=== PATIENT | female | born 1960 | race Caucasian/White ===

== ENCOUNTER 2017-06-15 05:53 | Inpatient (IN) | payer OTHER, SELFPAY ==
--- NOTE | 2017-06-03 22:48 | HP.PCM_ITS ---
History and Physical DATE OF SERVICE: 06/15/2017 SCHEDULED PROCEDURE: Right total knee arthroplasty HISTORY OF PRESENT ILLNESS: This is a 56-year-old female who is been having ongoing pain in the right. She states over the past 1 year it is progressively become worse. Patient has intermittent sharp and stabbing pain in the knee. Patient states going up and down stairs, walking any amount of distance, sitting for extended periods of time, and driving all increase her pain. Patient states she has tripped and stumbled on occasion due to the right knee pain. Patient states activities of daily living are getting more difficult to accomplish such as bathing as well as leisure activities. Patient has tried a brace in the past with no significant relief. Patient has tried conservative measures consisting of rest , ice, heat, elevation, and compression. Patient has received a series of Euflexxa injections with no relief. Patient has tried oral medications consisting of nldc-iqo-evyhwrp ibuprofen, Aleve. Patient has had a previous right knee arthroscopy in the past in 1989. Pain can reach as high as an 8 out of 10. She does complain of swelling as well as crepitus in the right knee. After failing conservative measures and discussing all treatment plans with Dr. Martín Pabon the patient would like to proceed with a right total knee arthroplasty. Patient currently denies any chest pain, shortness of breath, fevers chills, or recent infections. Patient has obtained surgical clearance from primary care physician Dr. Graves. REVIEW OF SYSTEMS: ROS: Const: Reports anxiety, but denies anorexia, change in appetite, fever and weight change,hard of hearing, and vision problems. Eyes: Reports vision loss. ENMT: Reports hearing difficulty. CV: Denies chest pain, heart murmur, irregular heartbeat and peripheral vascular disease. Resp: Denies asthma, cough, pneumonia, sleep apnea, SOB, tuberculosis and wheezing. GI: Reports heartburn, but denies constipation, diarrhea, nausea, bloody stools and vomiting, and difficulty swallowing. : Genital:. (F Genital Sx) Urinary: denies incontinence. Musculo: Reports weakness, but denies leg swelling and trouble walking and limp. Skin: Denies Raynaud's, history of shingles and tattoo. Neuro: Reports difficulty with balance, dizziness and numbness/tingling but denies ambulatory dysfunction and tremor. Psych: Reports anxiety ( driving) , depression, insomnia and stress, but denies mental illness Sadi/Lymph: Denies anemia, bleeding/bruising tendency and past transfusion. Reviewed and updated. PAST MEDICAL HISTORY: Advance Care Plan: No Advance Directives Effective Date: 11/05/2016 PMH: Medical Problems: High Blood Pressure, Ulcers, Arthritis, Colitis, Fibromyalgia, Crohn's Disease, Diabetes Accidents: Sports Related Injury - Lft Knee Surgical Hx: Gallbladder - (1991) Hysterectomy - (1994) Arthroscopy - (1979) LEFT KNEE, DR. LAWRENCE Arthroscopy - (1989) RIGHT KNEE Tonsillectomy - (1971) Carpal Tunnel - R CTR 10/13/07 [facility] - (2008) [facility] @ [facility] Anesthesia Complications: Anesthesia Complications - 1971/ get sick easy Assistive Devices: Glasses, Dentures Reviewed and updated. SOCIAL HISTORY: SH: Marital: .Occupation: [employer].Work Status: Currently Working.Hand Dominance: Ambidextrous. Personal Habits: Smoking: Patient is a former smoker.Cigarette Use: Former - 1 pck a day for 30 yrs .Alcohol: Occasionally.Drug Use: Denies Use.Enjoy Exercising: Exercises 1-3 x/month. Reviewed, no changes. VITALS: Ht: 64.5 Wt: 190lb Wt k.184 BMI: 32.1 BP: 120/80 Pulse: 78 Resp: 16 T: 98.9 T: 37.2C ALLERGIES: Doxycycline Sulfa MEDICATIONS: Lisinopril 10 mg 1 tab PO daily, Metformin HCL 500 mg 1po bid, Glipizide 5 mg 1po qday, Omeprazole 40 mg 1 by mouth every day, Folic Acid 1 mg 2 tabs PO daily , Amitriptyline HCL 25 mg 1 tab PO daily, Vitamin B-12 2500 mcg one PO daily, Magnesium 250 mg one PO daily, Vitamin D3 Adult Gummies 1000 Unit, Humira 40 mg/ 0.8ml PRE-OP EXAM: General appearance:NORMAL Other: Eyes: Conjunctivae and lids: NORMAL Pupils: ERR Ears, Nose, Mouth, and Throat: NORMAL Other: Inspection of lips, teeth and gums: NORMAL Other: Neck: Examination of neck: no masses noted. Respiratory: Assessment of respiratory effort: NORMAL Other: Ausculation of lungs: clear to ausculation no wheeses, ronchi or rales. Cardiovascular: Ausculation of heart: regular rate and rhythem, no mummurs, gallops or rubs. Exam of carotid arteries: NORMAL Other: Gastrointestinal: Exam of abdomen: soft, nontender, nondistended bowel sounds present. Lymphatic: Palpation of nodes in neck: NORMAL Other: Palpation of nodes in Axillae: NORMAL Other: Neurological: see below Psychiatric: Orientation to time, place and person: NORMAL Other: Mood and affect: NORMAL Other: PHYSICAL EXAMINATION: Patient walks with an antalgic gait. Patient does have a valgus deformity of 12 ? of the right knee. She has tenderness to palpation over the medial lateral joint line. Right knee is cool to touch without erythema. Sensations intact light touch. Neurovascularly intact. Increased pain and crepitus with range of motion of the right knee. IMAGING STUDIES: 1. X-rays were obtained at [facility] [place] of the right knee which shows [id number]-fv-hrns contact laterally with bone spurring over the medial and lateral aspect of the knee. There are some cystic changes. Patient has sclerosis of the distal femur and upper tibia. Patellofemoral joint arthritis with loss of joint space and bones spurring. IMPRESSION: 1. Severe right knee osteoarthritis 2. Hypertension 3. Type 2 diabetes mellitus 4. Crohn's disease 5. Fibromyalgia 6. History of ulcers 7. Overweight PLAN: Dr. Pabon did discuss and review with the patient all treatment options including surgical versus nonsurgical. Patient wishes to proceed with above- stated procedure. Potential risks, benefits, and complications of this procedure were discussed in detail including but not limited to , infection , nerve and blood vessel damage, persistent pain, numbness, tingling, paresthesias, blood clot, pulmonary embolism, and requirement for further surgery. The patient expressed full understanding has no further questions for the doctor. Patient does agree to proceed with the above-stated procedure and has signed the surgery consent form. ___ I have re-examined the patient. There are no clinical changes since date of exam. ___ See progress notes for changes. ___ Dictated on admission Date: Time: Signature:
[2017-06-04 15:41] VITALS: BP 155/79; PULSE 94; RESP 18; TEMP 36.7; O2SAT 96; BMI 34.0
[2017-06-04 17:20] LABS: Hematocrit 39.5 % (37-47); Hemoglobin 12.4 g/dl (12.0-15.0); Mean Corp Hgb Conc 31.4 g/gl (32-36); Mean Corpuscular Hgb 25.6 pg (27.0-32.0); Mean Corpuscular Volume 81.4 fL (81-99); Mean Platelet Vol. 9.9 fl (6.2-12.0); Platelet Count 230 K/mm3 (150-450); RBC Distribution Width CV 15.1 % (11.6-14.6); RBC Distribution Width SD 45.1 fl (35.1-43.9); Red Blood Count 4.85 M/mm3 (4.2-5.4); White Blood Count 8.3 K/mm3 (4.4-11.0)
[2017-06-04 17:21] LABS: Scan Indicated on CBC? Y/N NO
[2017-06-04 17:29] LABS: International Normalized Ratio 0.9; Partial Thromboplast Time 32.5 Seconds (24.1-36.2); Prothrombin Time (Protime)PT. 12.3 SECONDS (11.7-14.9)
[2017-06-04 17:44] LABS: AST(SGOT) 19 U/L (15-37); Alanine Aminotransfer ALT/SGPT 27 U/L (13-56); Albumin, Serum 3.8 g/dL (3.2-5.0); Alkaline Phosphatase 88 U/L (45-117); Anion Gap 9 (5-15); BUN 17 mg/dL (7-18); BUN/Creat Ratio 18.9 RATIO (10-20); Bilirubin, Direct 0.11 mg/dL (0.00-0.30); Chloride 104 mmol/L (98-107); EST Glomerular Filtration Rate 68 mL/min (>60); Est Glom Filt Rate - Afr Amer 83 mL/min (>60); Estimated Creatinine Clearance 57.05 ml/min; Globulin 4.2 g/dL (2.2-4.2); Glucose 73 mg/dL (74-106); Potassium 3.7 mmol/L (3.5-5.1); Sodium Level 138 mmol/L (136-145)
[2017-06-04 17:58] LABS: Hemoglobin A1c 6.5 % (4.2-6.3)
--- NOTE | 2017-06-11 15:02 | CASEMGMT ---
RN CM called patient to discuss discharge needs after upcoming surgery. No answer and voice message left with return contact information. Chart review and pre admission assessment states patient has a walker and cane, lives with family, and plans to return home. RN CM will follow-up with patient after surgery and assist with discharge needs.
[2017-06-15] VITALS (10 sets, daily range): BP systolic 89–131; BP diastolic 40–81; PULSE 79–92; RESP 16–18; TEMP 36.6–37.1; O2SAT 96–100; BMI 34.0
[2017-06-15] MEDS: Celecoxib 200 MG Capsule 400 MG PO (06:43)
[2017-06-15] MEDS: oxyCODONE HCl Cr 10 MG Tablet PO (06:43)
[2017-06-15] MEDS: Acetaminophen 500 MG Tablet 1000 MG PO ×3 (06:43→21:43)
[2017-06-15 07:00] LABS: Bedside Glucose 135 mg/dL (70-110)
--- NOTE | 2017-06-15 07:07 | RAD_ITS ---
STUDY: X-RAY - RIGHT KNEE REASON FOR EXAM: Female, 56 years old. Total knee replacement. TECHNIQUE: AP and lateral view(s) of the knee. COMPARISON: None. FINDINGS: Normal visualized distal femur. Normal visualized proximal tibia and fibula. Normal proximal tibiofibular articulation. The patient is status post right total knee replacement. There is good alignment. Postoperative soft tissue changes. RAD/Knee 1 or 2 Views IMPRESSION: Status post right total knee replacement. There is good alignment. Postoperative soft tissue changes. Electronically Signed: Calvin Flores MD at 11:20 EDT Tel [phone], Service support ,
--- NOTE | 2017-06-15 07:15 | KNEE_PTH ---
PATIENT: SHANE RODRIGUEZ LOC: MS3 U#:[id number] AGE/SX: 56/F ROOM: MS312 RE06/15/[address]: Dr. Evan Salguero MD : 1960 BED: 1 DIS: 06/16/2017 SPEC #: [id number] RECD: 06/15/17 11:32 STATUS: KAYCEE JUSTA #: [id number] JAMI: 06/15/17 07:[address]: Martín Pabon DEPT: SURGICAL PATHOLOGY RECD BY: Jason Harrell ENTERED: 06/15/17 12:50 SP TYPE: TOTAL KNEE OTHR DR: Dr. Zach Null MD Tissues: Knee, NOS Procedures: Decalcification bone/plaque Surgery Specimen Level IV HEADER OPERATION: Right total knee replacement PRE-OP DIAGNOSIS: Severe right knee osteoarthritis TISSUE SUBMITTED: Bone and soft tissue, right knee MICROSCOPIC DIAGNOSIS Bone and tissue, right knee, total knee replacement: Pieces of bone with degenerative osteoarthritic changes. SJ:samia 06/18/17 MICROSCOPIC DESCRIPTION Slides are reviewed. GROSS DESCRIPTION Received is one container designated bone and tissue right knee. The specimen consists of multiple fragments of fall-yellow bone measuring in aggregate 12 x 12 x 3 cm. No soft tissue is identified. A number of bony fragments contain articular surfaces consistent with tibial plateau and femoral condyle and displaying prominent osteophyte formation and bone erosion. Electronic Systems Technician sections are submitted in one cassette after decalcification. / SETH:samia 06/15/17 TC:5 [facility]: [id number]
[2017-06-15] MEDS: Cefazolin 2 GM in 0.9% Normal Saline 100 ML IV (07:29)
--- NOTE | 2017-06-15 09:21 | PCM.OP.BLANK ---
Operative Report Date of Procedure: 06/15/17 Preoperative diagnosis: [Right] knee severe primary osteoarthritis Postoperative diagnosis: Same Title of procedure : [Right] total knee replacement Surgeon: Martín Pabon MD Research Assistant: Sydney Holt PA-C Anesthesia: Spinal, adductor canal nerve block planned for recovery room Anesthesiologist: Dr Granados Special medications: Vancomycin. Ancef, tranexamic acid Indications for surgery: Patient is a [56]-year-old [female] with a history of knee arthritis appropriately treated and failed conservative measures and wished to proceed with total knee replacement. Patient was cleared for surgery by the medical doctor and has been evaluated by the anesthesia staff Findings: Intraoperative findings showed severe arthritis of the knee. Patient underwent knee replacement using [employer] total knee components. Size [4] femur, size [4] tibia, [29 x 9] asymmetric X3 patella, size [4-9 CS] X3 tibial polyethylene insert, knee was nicely balanced. Patella tracked well. Patient underwent standard wound closure in layers. Vicryl and strata fix sutures utilized. title i instructional assistant, physician commercial assistant, was utilized throughout the entire procedure. They were vital in helping with patient positioning, holding of retractors, exposing the tissues adequately for safe completion of the procedure including cutting of the bone, helping conciliation court judge appropriate alignment and sizing of the components, implantation of the components, as well as wound closure, bandage application, and safe patient transfer. Without mailroom assistant, physician commercial assistant, surgical time would have been significantly increased, and surgical outcome could have been less optimal. Description of procedure: The patient was taken to the OR, transferred to the OR table. They were given a spinal anesthetic. Vancomycin, Ancef was given IV preoperatively. Tranexamic acid was given IV preoperatively. Well-padded tourniquet was applied to the upper thigh of the operative leg. Nonoperative leg had a FERNANDA hose and SCD on throughout. Operative limb was prepped padded and draped in usual orthopedic sterile fashion for the procedure. We began by injecting the pain relieving solution in the anterior superior aspect of the knee region. The limb was exsanguinated, and the tourniquet was applied to 300 mmHg. Made a midline incision through skin, subcutaneous tissue, bringing down us on the extensor mechanism. Medial parapatellar arthrotomy was carried out. Straw-colored joint fluid was evacuated. We raised a sleeve of tissue off the upper medial tibia. Resected some of the infrapatellar fat pad. We remove degenerative medial and lateral meniscus. Removed bone spurs from about the joint. We removed tissue off the anterior aspect of the distal femur. Patella was translated laterally and/or everted as needed throughout the procedure. ACL was resected. PCL was preserved. Collateral ligaments were preserved. Physician placed the retractors and commercial assistant held retractors protecting above ligaments throughout the procedure. Drill was placed up the distal femur. Flex guide mely was placed up the femoral canal. We resected 8 mm off of the distal femur. 6? valgus cut. Next cutting block was applied to the front of the femur. 3? of external rotation . We sized off that block and decided on the appropriate size femur. 4-in-1 cutting block was applied to the distal femur and held in place with 2 pins. Research Assistant again held retractors to protect the soft tissues while surgeon performed anterior, posterior, and chamfer cuts. Bony fragments were removed. PCL retractor was placed and collateral ligament protectors placed by the surgeon, held by the assistance. Tibial external alignment guide was utilized under standard technique going down the shaft of the tibia, to the base of the second metatarsal. Appropriate posterior slope was built in. Research Assistant help conciliation court judge alignment. We went 2 mm off the deficient side of the tibia. Cutting block was held in place with 3 pins. Again checked the external alignment. Tibial cut carried out with a saw while the commercial assistant held retractors protecting the soft tissues about the anterior, medial, lateral, and posterior knee. Bone fragment removed. We then sized off the upper tibia with the help of the commercial assistant. Recut tibia x 2 before adequate bone removed. We then checked flexion extension gaps finding them to be adequate and equal. Next the distal femoral trial was applied. Tibial tray was allowed to freefloat with a 9 mm insert. Knee was flexed and extended an external alignment guide is utilized. Tibial trial was pinned in place. Drill holes were placed into the distal femoral trial and it was removed. Punch was used on the upper tibial component and that was removed. The sclerotic bone was softened with a sharp pin. Bone spurs removed from the posterior medial and posterior lateral aspect of the femur while the commercial assistant lifted up on the distal femur and exposed each compartment. Patella was everted and measured and appropriate resection was carried out while the commercial assistant held the guide and patella in good position. Patellar remnant measured to be at or just greater than 14 mm. Patella was sized. Clamp was utilized. 3 drill holes were placed through the clamp held by the commercial assistant. Trial patella was placed and removed. Bleeding was controlled at the back of the knee with the bovey. Posterior knee soft tissues were carefully injected with pain relieving solution. Components were checked and open. Two full batches of bone cement were mixed. Knee was thoroughly irrigated by the commercial assistant while surgeon fashioned a bone plug that was placed in the femoral canal hole. The bony surfaces cleaned and dried. When the cement was of the appropriate texture the tibia, femur, and then patella was cemented in place. Research Assistant held retractors exposing the bony surfaces of the tibia and femur which were hammered in position. Patella clamped into position. The excess bone cement removed. A trial insert applied to the tibia. Knee was held in full extension while the cement hardened. While the cement was hardening pain relieving solution was injected throughout the knee. When cement was fully hardened tourniquet was deflated. We re-trialed with the help of the commercial assistant and then placed the appropriate sized polyethylene component. We thoroughly irrigated and debrided the knee. Bleeding controlled with the Bovie. Knee was again thoroughly irrigated. Patella noted to track nicely. We repaired the arthrotomy with a combination of #1 Vicryl and #2 strata fix. We did a mid layer of 1 Vicryl and #1 strata fix running. We then did inverted 2-0 vicryl . We then applied Steri-Strips over skin prep. Mepilex dressing applied. FERNANDA hose and SCDs applied. Patient was awoken from their anesthetic, transferred back to their own bed and recovery room in satisfactory condition. Second dose of IV Tranexamic acid was given while closing wound. Patient was admitted, appropriate IV antibiotic to be utilized as well as medication for DVT prevention,pain relief. Hopeful discharge in 1-2 days. Hospitalist and Physical therapy will be consulted. This note was generated with [employer] software. It may contain incorrect words, spelling, and punctuation that were not noted in checking the note before signing.
--- NOTE | 2017-06-15 09:26 | OP.PCM_ITS ---
Operative Report Date of Procedure: 06/15/17 Preoperative diagnosis: [Right] knee severe primary osteoarthritis Postoperative diagnosis: Same Title of procedure : [Right] total knee replacement Surgeon: Martín Pabon MD Mechanical Service Specialist: Sydney Holt PA-C Anesthesia: Spinal, adductor canal nerve block planned for recovery room Anesthesiologist: Dr Granados Special medications: Vancomycin. Ancef, tranexamic acid Indications for surgery: Patient is a [56]-year-old [female] with a history of knee arthritis appropriately treated and failed conservative measures and wished to proceed with total knee replacement. Patient was cleared for surgery by the medical doctor and has been evaluated by the anesthesia staff Findings: Intraoperative findings showed severe arthritis of the knee. Patient underwent knee replacement using Netsketn total knee components. Size [4] femur, size [4] tibia, [29 x 9] asymmetric X3 patella, size [4-9 CS] X3 tibial polyethylene insert, knee was nicely balanced. Patella tracked well. Patient underwent standard wound closure in layers. Vicryl and strata fix sutures utilized. minister assistant, physician microbiology lab assistant, was utilized throughout the entire procedure. They were vital in helping with patient positioning, holding of retractors, exposing the tissues adequately for safe completion of the procedure including cutting of the bone, helping wool grader appropriate alignment and sizing of the components, implantation of the components, as well as wound closure, bandage application, and safe patient transfer. Without certified surgical tech/first assistant, physician microbiology lab assistant, surgical time would have been significantly increased, and surgical outcome could have been less optimal. Description of procedure: The patient was taken to the OR, transferred to the OR table. They were given a spinal anesthetic. Vancomycin, Ancef was given IV preoperatively. Tranexamic acid was given IV preoperatively. Well-padded tourniquet was applied to the upper thigh of the operative leg. Nonoperative leg had a FERNANDA hose and SCD on throughout. Operative limb was prepped padded and draped in usual orthopedic sterile fashion for the procedure. We began by injecting the pain relieving solution in the anterior superior aspect of the knee region. The limb was exsanguinated, and the tourniquet was applied to 300 mmHg. Made a midline incision through skin, subcutaneous tissue, bringing down us on the extensor mechanism. Medial parapatellar arthrotomy was carried out. Straw- colored joint fluid was evacuated. We raised a sleeve of tissue off the upper medial tibia. Resected some of the infrapatellar fat pad. We remove degenerative medial and lateral meniscus. Removed bone spurs from about the joint. We removed tissue off the anterior aspect of the distal femur. Patella was translated laterally and/or everted as needed throughout the procedure. ACL was resected. PCL was preserved. Collateral ligaments were preserved. Physician placed the retractors and microbiology lab assistant held retractors protecting above ligaments throughout the procedure. Drill was placed up the distal femur. Flex guide mely was placed up the femoral canal. We resected 8 mm off of the distal femur. 6? valgus cut. Next cutting block was applied to the front of the femur. 3? of external rotation . We sized off that block and decided on the appropriate size femur. 4-in-1 cutting block was applied to the distal femur and held in place with 2 pins. Mechanical Service Specialist again held retractors to protect the soft tissues while surgeon performed anterior, posterior, and chamfer cuts. Bony fragments were removed. PCL retractor was placed and collateral ligament protectors placed by the surgeon, held by the assistance. Tibial external alignment guide was utilized under standard technique going down the shaft of the tibia, to the base of the second metatarsal. Appropriate posterior slope was built in. Mechanical Service Specialist help wool grader alignment. We went 2 mm off the deficient side of the tibia. Cutting block was held in place with 3 pins. Again checked the external alignment. Tibial cut carried out with a saw while the microbiology lab assistant held retractors protecting the soft tissues about the anterior, medial, lateral, and posterior knee. Bone fragment removed. We then sized off the upper tibia with the help of the microbiology lab assistant. Recut tibia x 2 before adequate bone removed. We then checked flexion extension gaps finding them to be adequate and equal. Next the distal femoral trial was applied. Tibial tray was allowed to freefloat with a 9 mm insert. Knee was flexed and extended an external alignment guide is utilized. Tibial trial was pinned in place. Drill holes were placed into the distal femoral trial and it was removed. Punch was used on the upper tibial component and that was removed. The sclerotic bone was softened with a sharp pin. Bone spurs removed from the posterior medial and posterior lateral aspect of the femur while the microbiology lab assistant lifted up on the distal femur and exposed each compartment. Patella was everted and measured and appropriate resection was carried out while the microbiology lab assistant held the guide and patella in good position. Patellar remnant measured to be at or just greater than 14 mm. Patella was sized. Clamp was utilized. 3 drill holes were placed through the clamp held by the microbiology lab assistant. Trial patella was placed and removed. Bleeding was controlled at the back of the knee with the bovey. Posterior knee soft tissues were carefully injected with pain relieving solution. Components were checked and open. Two full batches of bone cement were mixed. Knee was thoroughly irrigated by the microbiology lab assistant while surgeon fashioned a bone plug that was placed in the femoral canal hole. The bony surfaces cleaned and dried. When the cement was of the appropriate texture the tibia, femur, and then patella was cemented in place. Mechanical Service Specialist held retractors exposing the bony surfaces of the tibia and femur which were hammered in position. Patella clamped into position. The excess bone cement removed. A trial insert applied to the tibia. Knee was held in full extension while the cement hardened. While the cement was hardening pain relieving solution was injected throughout the knee. When cement was fully hardened tourniquet was deflated. We re-trialed with the help of the microbiology lab assistant and then placed the appropriate sized polyethylene component. We thoroughly irrigated and debrided the knee. Bleeding controlled with the Bovie. Knee was again thoroughly irrigated. Patella noted to track nicely. We repaired the arthrotomy with a combination of #1 Vicryl and #2 strata fix. We did a mid layer of 1 Vicryl and #1 strata fix running. We then did inverted 2-0 vicryl . We then applied Steri-Strips over skin prep. Mepilex dressing applied. FERNANDA hose and SCDs applied. Patient was awoken from their anesthetic, transferred back to their own bed and recovery room in satisfactory condition. Second dose of IV Tranexamic acid was given while closing wound. Patient was admitted, appropriate IV antibiotic to be utilized as well as medication for DVT prevention,pain relief. Hopeful discharge in 1-2 days. Hospitalist and Physical therapy will be consulted. This note was generated with [email or web address] software. It may contain incorrect words, spelling, and punctuation that were not noted in checking the note before signing.
[2017-06-15 10:06] LABS: Bedside Glucose 149 mg/dL (70-110)
[2017-06-15 11:26] LABS: Bedside Glucose 133 mg/dL (70-110)
[2017-06-15] MEDS: Lactated Ringers 1,000 ML 125 ML IV (12:22)
[2017-06-15] MEDS: Folic Acid 1 MG Tablet 2 MG PO (12:58)
[2017-06-15] MEDS: Famotidine 20 MG Tablet PO (12:58)
[2017-06-15] MEDS: Cefazolin 1 GM/50 ML BAG IV ×2 (13:06→21:42)
[2017-06-15] MEDS: oxyCODONE 5 MG Tablet PO (13:06)
--- NOTE | 2017-06-15 15:01 | PCM.CONS.GEN ---
Problem List (1) Hypertension Status: Chronic (2) Inflammatory bowel disease Status: Chronic (3) Type II diabetes mellitus Status: Chronic Reason for Consult Date of Consultation: 06/15/17 Reason for Consultation: Postoperative medical management. History of Present Illness: The patient is a 56 year old F with past medical history as mentioned above admitted for elective right total knee replacement for right knee osteoarthritis and I am seeing this patient in consultation for postoperative medical management. At this time, she complained of muscle pain above the right knee as well as right knee ache/discomfort. She mentioned that her pain is manageable at this time. She denies any other complaints. She denies cough or sputum production. Denied chest pain or shortness of breath. No fever or chills. Denied abdominal pain, nausea or vomiting. Denied constipation or diarrhea. Denied dizziness or lightheadedness. Her blood pressure has been borderline but improved, other vital signs were stable. Preoperative blood work including CBC and CMP from June 04, 2017 reviewed and was unremarkable. She has a history of type 2 diabetes mellitus and she has been on glipizide and metformin and she mentioned that her blood pressure has been under control, most recent hemoglobin A1c was 6.5 from April,. She has history of hypertension which seemed to be under control with lisinopril. She had a history of Crohn's disease and she is on Humira injections every 2 weeks. She denies any abdominal pain, bloody stool, diarrhea or constipation. He is on IV cefazolin and vancomycin for perioperative prophylaxis. Her MRSA nasal screen was positive. Past Medical History Past Medical History (Chronic Problems): Chronic Problems Hypertension (Chronic) Inflammatory bowel disease (Chronic) Type II diabetes mellitus (Chronic) Allergies dyclonine Allergy (Verified 06/04/17 15:15) Rash Sulfa (Sulfonamide Antibiotics) Allergy (Verified 06/04/17 15:15) Rash adhesive tape Adverse Reaction (Verified 06/04/17 15:16) Itching Home Medications: Ambulatory Orders Medication Instructions Recorded Adalimumab [Humira] 40 mg SQ Q14D 06/04/17 Amitriptyline HCl 75 mg PO QHS 06/04/17 Cholecalciferol (Vitamin D3) 1,000 unit PO DAILY 06/04/17 [Vitamin D3] Cyanocobalamin (Vitamin B-12) 2,500 mcg PO DAILY 06/04/17 [Vitamin B-12] Folic Acid 2 mg PO DAILY@0800 06/04/17 Glipizide 5 mg PO DAILY 06/04/17 Lisinopril [Zestril] 10 mg PO QHS 06/04/17 Metformin HCl 500 mg PO DAILY 06/04/17 Omeprazole 40 mg PO DAILY 06/04/17 Surgical History: cholecystectomy, - - Surgery for carpal tunnel. 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 Lives: Spouse/ Significant Other Smoking Status: Former smoker Alcohol: None Drugs: None - *Family History Maternal History Items: No pertinent history Paternal History Items: No pertinent history Review of Systems Constitutional: Denies: Anorexia, Chills, Fever, Weakness Eyes: Denies: Blurred vision, Double vision, Drainage, Redness HEENT: Denies: Difficulty Hearing, Ear Pain, Eye Pain, Nasal Congestion, Sore Throat Cardiovascular: Denies: Chest Pain, Chest Pressure, Chest Tightness, Heaviness, Light Headedness, Orthopnea, Syncope Respiratory: Denies: Cough, Hemoptysis, Pleuritic Pain, Shortness of Breath, Sputum production, Wheezing Gastrointestinal: Denies: Abdominal Pain, Constipation, Diarrhea, Nausea, Vomiting Genitourinary: Denies: Dysuria, Frequency, Hematuria Musculoskeletal: Reports: Joint Pain. Denies: Arm Pain, Back Pain, Hand Pain, Joint swelling Skin: Denies: Dryness, Rash Neurological: Denies: Balance problems, Double vision, Change in Speech, Slurred speech, Confusion, Focal weakness, Headaches, Incoordination, Numbness Psychiatric: Denies: Anxiety, Depression Endocrine: Denies: Change in Body Habitus, Polydipsia - Physical Exam General: Alert, Oriented x3, Cooperative, No apparent distress HEENT: Atraumatic, PERRLA Oral: Moist Mucosa, No Gingival or Mucosal Lesions/ Ulcerations Neck: Supple, No JVD, Negative Carotid Bruits, Trachea Midline, Thyroid Normal Size and Texture Lungs: Clear to auscultation, Normal air movement, No rhonchi, No wheeze, No rales Cardiovascular: Regular rate, Regular Rhythm, Normal S1, Normal S2, No murmurs Abdomen: Bowel Sounds Present, Soft, Non Tender, Non-Distended, No Hepato-splenomegaly, Obese Extremities: No clubbing, No cyanosis, No edema Skin: No rashes, No breakdown Lymphatic: No Cervical, Supraclavicular, or Inguinal Adenopathy Neurological: Cranial nerves II-XII grossly intact, Motor Exam 5/5 strength throughout Psych/Mental Status: Normal Affect, Appropriate, Alert and oriented to time, place, person, mood and affect Vital Signs Temp Pulse Resp BP Pulse Ox 98.0 F 92 16 103/51 L 98 06/15/17 12:49 06/15/17 12:49 06/15/17 12:49 06/15/17 12:49 06/15/17 12:49 Oxygen Delivery Method Room Air Weight: 191 lb 12.835 oz Body Mass Index (BMI) 34.0 Finger Stick Blood Glucose 149 Intake and Output for Last 24 Hours 06/13/17 06/14/17 06/15/17 22:59 23:59 23:59 Intake Total 1600 / 1600 Balance 1600 / 1600 POC Glucose 06/15/17 06/15/17 06/15/17 11:21 10:02 06:36 POC Glucose 133 H 149 H 135 H Laboratory Tests 06/15/17 06/15/17 06/15/17 Range/Units 11:21 10:02 06:36 POC Glucose 133 H 149 H 135 H (70-110) mg/dL Clinical Impression(s) from Imaging Studies Knee X-Ray 06/15/17 07:07 IMPRESSION: Status post right total knee replacement. There is good alignment. Postoperative soft tissue changes. Electronically Signed: Calvin Flores MD at 11:20 EDT Tel [phone], Service support , Assessment/Plan This is a 56 years old female patient admitted for elective right total knee replacement for right knee osteoarthritis and I am seeing this patient in consultation for postoperative medical management. #1 status post right total knee replacement: This was done for right knee osteoarthritis, postoperative day 1. At this time, her pain is manageable. She is on MS Contin twice daily, IV morphine and OxyIR as needed for pain. She is on IV cefazolin and vancomycin for perioperative prophylaxis. MRSA nasal screen was positive. Vital signs are stable. Preoperative routine blood work was unremarkable. Orthopedic surgery is managing. #2 hypertension: This morning, blood pressure was borderline after surgery. At this time, blood pressure improved and she is asymptomatic. Continue lisinopril. #3 type 2 diabetes mellitus: ADA diet, Accu-Cheks, insulin scale, continue metformin and glipizide. Most recent hemoglobin A1c was 6.5 from September,. #4 Crohn's disease: Stable, no acute issues. She is on Humira injections every 2 weeks. She denied abdominal pain, bloody stool or diarrhea. #5 DVT prophylaxis: Started on Xarelto 10 mg p.o. daily. This note was generated with [employer] dictation software. It may contain incorrect words, spelling, and punctuation that were not noted in checking the note before signing. Code Visit Inpatient E&M: 94410 Init Hosp L2
--- NOTE | 2017-06-15 15:07 | CON.PCM_ITS ---
Problem List (1) Hypertension Status: Chronic (2) Inflammatory bowel disease Status: Chronic (3) Type II diabetes mellitus Status: Chronic Reason for Consult Date of Consultation: 06/15/17 Reason for Consultation: Postoperative medical management. History of Present Illness: The patient is a 56 year old F with past medical history as mentioned above admitted for elective right total knee replacement for right knee osteoarthritis and I am seeing this patient in consultation for postoperative medical management. At this time, she complained of muscle pain above the right knee as well as right knee ache/discomfort. She mentioned that her pain is manageable at this time. She denies any other complaints. She denies cough or sputum production. Denied chest pain or shortness of breath. No fever or chills. Denied abdominal pain, nausea or vomiting. Denied constipation or diarrhea. Denied dizziness or lightheadedness. Her blood pressure has been borderline but improved, other vital signs were stable. Preoperative blood work including CBC and CMP from June 04, 2017 reviewed and was unremarkable. She has a history of type 2 diabetes mellitus and she has been on glipizide and metformin and she mentioned that her blood pressure has been under control, most recent hemoglobin A1c was 6.5 from April,. She has history of hypertension which seemed to be under control with lisinopril. She had a history of Crohn's disease and she is on Humira injections every 2 weeks. She denies any abdominal pain, bloody stool, diarrhea or constipation. He is on IV cefazolin and vancomycin for perioperative prophylaxis. Her MRSA nasal screen was positive. Past Medical History Past Medical History (Chronic Problems): Chronic Problems Hypertension (Chronic) Inflammatory bowel disease (Chronic) Type II diabetes mellitus (Chronic) Allergies dyclonine Allergy (Verified 06/04/17 15:15) Rash Sulfa (Sulfonamide Antibiotics) Allergy (Verified 06/04/17 15:15) Rash adhesive tape Adverse Reaction (Verified 06/04/17 15:16) Itching Home Medications: Ambulatory Orders Medication Instructions Recorded Adalimumab [Humira] 40 mg SQ Q14D 06/04/17 Amitriptyline HCl 75 mg PO QHS 06/04/17 Cholecalciferol (Vitamin D3) 1,000 unit PO DAILY 06/04/17 [Vitamin D3] Cyanocobalamin (Vitamin B-12) 2,500 mcg PO DAILY 06/04/17 [Vitamin B-12] Folic Acid 2 mg PO DAILY@0800 06/04/17 Glipizide 5 mg PO DAILY 06/04/17 Lisinopril [Zestril] 10 mg PO QHS 06/04/17 Metformin HCl 500 mg PO DAILY 06/04/17 Omeprazole 40 mg PO DAILY 06/04/17 Surgical History: cholecystectomy, - - Surgery for carpal tunnel. 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 Lives: Spouse/ Significant Other Smoking Status: Former smoker Alcohol: None Drugs: None - *Family History Maternal History Items: No pertinent history Paternal History Items: No pertinent history Review of Systems Constitutional: Denies: Anorexia, Chills, Fever, Weakness Eyes: Denies: Blurred vision, Double vision, Drainage, Redness HEENT: Denies: Difficulty Hearing, Ear Pain, Eye Pain, Nasal Congestion, Sore Throat Cardiovascular: Denies: Chest Pain, Chest Pressure, Chest Tightness, Heaviness, Light Headedness, Orthopnea, Syncope Respiratory: Denies: Cough, Hemoptysis, Pleuritic Pain, Shortness of Breath, Sputum production, Wheezing Gastrointestinal: Denies: Abdominal Pain, Constipation, Diarrhea, Nausea, Vomiting Genitourinary: Denies: Dysuria, Frequency, Hematuria Musculoskeletal: Reports: Joint Pain. Denies: Arm Pain, Back Pain, Hand Pain, Joint swelling Skin: Denies: Dryness, Rash Neurological: Denies: Balance problems, Double vision, Change in Speech, Slurred speech, Confusion, Focal weakness, Headaches, Incoordination, Numbness Psychiatric: Denies: Anxiety, Depression Endocrine: Denies: Change in Body Habitus, Polydipsia - Physical Exam General: Alert, Oriented x3, Cooperative, No apparent distress HEENT: Atraumatic, PERRLA Oral: Moist Mucosa, No Gingival or Mucosal Lesions/ Ulcerations Neck: Supple, No JVD, Negative Carotid Bruits, Trachea Midline, Thyroid Normal Size and Texture Lungs: Clear to auscultation, Normal air movement, No rhonchi, No wheeze, No rales Cardiovascular: Regular rate, Regular Rhythm, Normal S1, Normal S2, No murmurs Abdomen: Bowel Sounds Present, Soft, Non Tender, Non-Distended, No Hepato- splenomegaly, Obese Extremities: No clubbing, No cyanosis, No edema Skin: No rashes, No breakdown Lymphatic: No Cervical, Supraclavicular, or Inguinal Adenopathy Neurological: Cranial nerves II-XII grossly intact, Motor Exam 5/5 strength throughout Psych/Mental Status: Normal Affect, Appropriate, Alert and oriented to time, place, person, mood and affect Vital Signs Temp Pulse Resp BP Pulse Ox 98.0 F 92 16 103/51 L 98 06/15/17 12:49 06/15/17 12:49 06/15/17 12:49 06/15/17 12:49 06/15/17 12:49 Oxygen Delivery Method Room Air Weight: 191 lb 12.835 oz Body Mass Index (BMI) 34.0 Finger Stick Blood Glucose 149 Intake and Output for Last 24 Hours 06/13/17 06/14/17 06/15/17 22:59 23:59 23:59 Intake Total 1600 / 1600 Balance 1600 / 1600 POC Glucose 06/15/17 06/15/17 06/15/17 11:21 10:02 06:36 POC Glucose 133 H 149 H 135 H Laboratory Tests 3 06/15/17 06/15/17 06/15/17 Range/Units 11:21 10:02 06:36 POC Glucose 133 H 149 H 135 H (70-110) mg/dL Clinical Impression(s) from Imaging Studies Knee X-Ray 06/15/17 07:07 IMPRESSION: Status post right total knee replacement. There is good alignment. Postoperative soft tissue changes. Electronically Signed: Calvin Flores MD at 11:20 EDT Tel [phone], Service support , Assessment/Plan This is a 56 years old female patient admitted for elective right total knee replacement for right knee osteoarthritis and I am seeing this patient in consultation for postoperative medical management. #1 status post right total knee replacement: This was done for right knee osteoarthritis, postoperative day 1. At this time, her pain is manageable. She is on MS Contin twice daily, IV morphine and OxyIR as needed for pain. She is on IV cefazolin and vancomycin for perioperative prophylaxis. MRSA nasal screen was positive. Vital signs are stable. Preoperative routine blood work was unremarkable. Orthopedic surgery is managing. #2 hypertension: This morning, blood pressure was borderline after surgery. At this time, blood pressure improved and she is asymptomatic. Continue lisinopril. #3 type 2 diabetes mellitus: ADA diet, Accu-Cheks, insulin scale, continue metformin and glipizide. Most recent hemoglobin A1c was 6.5 from September,. #4 Crohn's disease: Stable, no acute issues. She is on Humira injections every 2 weeks. She denied abdominal pain, bloody stool or diarrhea. #5 DVT prophylaxis: Started on Xarelto 10 mg p.o. daily. This note was generated with [employer] dictation software. It may contain incorrect words, spelling, and punctuation that were not noted in checking the note before signing. Code Visit Inpatient E&M: 61092 Init Hosp L2
[2017-06-15 16:11] LABS: Bedside Glucose 82 mg/dL (70-110)
[2017-06-15] MEDS: Lisinopril 10 MG Tablet PO (21:42)
[2017-06-15] MEDS: Amitriptyline 25 MG Tablet 75 MG PO (21:44)
[2017-06-15 22:50] LABS: Bedside Glucose 74 mg/dL (70-110)
[2017-06-15 22:50] LABS: Bedside Glucose 74 mg/dL (70-110)
[2017-06-15 23:25] LABS: Bedside Glucose 93 mg/dL (70-110)
[2017-06-16 02:39] VITALS: BP 134/71; PULSE 83; RESP 14; TEMP 37.1; O2SAT 95
[2017-06-16] MEDS: Cefazolin 1 GM/50 ML BAG IV (02:46)
[2017-06-16 05:34] LABS: Hematocrit 32.4 % (37-47); Hemoglobin 10.3 g/dl (12.0-15.0); Mean Corp Hgb Conc 31.8 g/gl (32-36); Mean Corpuscular Hgb 26.3 pg (27.0-32.0); Mean Corpuscular Volume 82.9 fL (81-99); Platelet Count 159 K/mm3 (150-450); RBC Distribution Width CV 14.9 % (11.6-14.6); RBC Distribution Width SD 44.2 fl (35.1-43.9); Red Blood Count 3.91 M/mm3 (4.2-5.4); White Blood Count 7.1 K/mm3 (4.4-11.0)
[2017-06-16 05:37] LABS: Scan Indicated on CBC? Y/N NO
[2017-06-16] MEDS: Rivaroxaban 10 MG Tablet PO (06:21)
[2017-06-16] MEDS: Acetaminophen 500 MG Tablet 1000 MG PO ×2 (06:21→14:11)
[2017-06-16 07:39] LABS: Anion Gap 7 (5-15); BUN 10 mg/dL (7-18); BUN/Creat Ratio 13.2 RATIO (10-20); Calcium,Total 7.9 mg/dL (8.5-10.1); Chloride 105 mmol/L (98-107); Creatinine, Serum 0.76 mg/dL (0.55-1.02); EST Glomerular Filtration Rate 84 mL/min (>60); Est Glom Filt Rate - Afr Amer 101 mL/min (>60); Estimated Creatinine Clearance 67.56 ml/min; Glucose 133 mg/dL (74-106); Sodium Level 137 mmol/L (136-145)
[2017-06-16 08:24] VITALS: BP 120/55; PULSE 91; RESP 16; TEMP 37.6; O2SAT 96
[2017-06-16] MEDS: Folic Acid 1 MG Tablet 2 MG PO (08:28)
[2017-06-16] MEDS: oxyCODONE 5 MG Tablet PO ×2 (08:31→14:11)
--- NOTE | 2017-06-16 09:37 | PCM.PN.HOSP ---
Subjective: Patient is a 56 year old lady who underwent right total knee replacement by Dr. Martín Pabon on 06/15/2017 on account of severe primary osteoarthritis involving the right knee. Hospitalist service was consulted to assist with management of patient medical comorbidities Objective: GENERAL: cooperative HEENT: Clear conjunctiva, NECK; supple, normal thyroid, CHEST: Clear to auscultation bilaterally, HEART: Regular S1 S2, no audible murmurs ABDOMEN: soft, non-tender, normoactive bowel sounds, RECTAL: deferred EXTREMITIES: Right knee in surgical dressing TRANSPORTATION INSPECTOR: Awake, no lateralizing signs. SKIN: As Above Vitals/I&O's: Vital Signs Temp Pulse Resp BP Pulse Ox 99.7 F H 91 16 120/55 L 96 06/16/17 08:24 06/16/17 08:24 06/16/17 08:24 06/16/17 08:24 06/16/17 08:24 Oxygen Delivery Method Room Air Weight: 87 kg Body Mass Index (BMI) 34.0 Finger Stick Blood Glucose 149 Intake and Output for Last 24 Hours 06/14/17 06/15/17 06/16/17 23:59 23:59 23:59 Intake Total 2255 / 2255 1122 / 1122 Output Total 400 / 400 1000 / 1000 Balance 1855 / 1855 122 / 122 Laboratory Results 06/15/17 10:02: POC Glucose 149 H 06/15/17 11:21: POC Glucose 133 H 06/15/17 15:53: POC Glucose 82 06/15/17 21:53: POC Glucose 74 06/15/17 22:45: POC Glucose 74 06/15/17 23:16: POC Glucose 93 06/16/17 04:50: WBC 7.1, RBC 3.91 L, Hgb 10.3 L, Hct 32.4 L, MCV 82.9, MCH 26.3 L, MCHC 31.8 L, RDW 14.9 H, RDW Differential 44.2 H, Plt Count 159, MPV 10.0 06/16/17 04:50: Sodium 137, Potassium 4.0, Chloride 105, Carbon Dioxide 25.0, Anion Gap 7, BUN 10, Creatinine 0.76, Estim Creat Clear Calc 67.56, Est GFR (MDRD) Af Amer 101, Est GFR (MDRD) Non-Af 84, BUN/Creatinine Ratio 13.2, Glucose 133 H, Calcium 7.9 L Current Medications Acetaminophen (Tylenol) 1,000 mg PO Q8 [facility] Last Admin: 06/16/17 06:21 Dose: 1,000 mg Amitriptyline HCl (Elavil) 75 mg PO HS [facility] Last Admin: 06/15/17 21:44 Dose: 75 mg Cholecalciferol (Vitamin D) 1,000 unit PO DAILY [facility] Last Admin: 06/15/17 12:57 Dose: 1,000 unit Cyanocobalamin (Vitamin B12) 2,500 mcg PO DAILY [facility] Last Admin: 06/15/17 15:54 Dose: Not Given Dextrose (D50w Syringe) 0 gm IV X1 PRN; Protocol PRN Reason: Hypoglycemia Famotidine (Pepcid) 20 mg PO DAILY [facility] Last Admin: 06/15/17 12:58 Dose: 20 mg Folic Acid (Folic Acid) 2 mg PO DAILY@0800 [facility] Last Admin: 06/16/17 08:28 Dose: 2 mg Glipizide (Glucotrol) 5 mg PO DAILY@0800 [facility] Last Admin: 06/16/17 08:29 Dose: 5 mg Glucagon () 1 mg IM .X1 PRN PRN Reason: Hypoglycemia Insulin Aspart (Novolog Flexpen (Bkc)) 0 units SC ACHS [facility] PRN Reason: Protocol Last Admin: 06/16/17 06:31 Dose: Not Given Lisinopril (Zestril) 10 mg PO QHS [facility] Last Admin: 06/15/17 21:42 Dose: 10 mg Metformin HCl (Glucophage) 500 mg PO DAILYCM [facility] Last Admin: 06/16/17 08:29 Dose: 500 mg Morphine Sulfate (Ms Contin) 15 mg PO BID [facility] Last Admin: 06/15/17 23:28 Dose: 15 mg Morphine Sulfate (Morphine) 2 - 4 mg IV Q2H PRN PRN PRN Reason: SEVERE PAIN (6-10/10) Morphine Sulfate (Morphine) 2 - 4 mg IV Q2H PRN PRN PRN Reason: SEVERE PAIN (6-10/10) Ondansetron HCl (Zofran) 4 mg IV Q8H PRN PRN PRN Reason: NAUSEA Oxycodone HCl (Oxyir) 5 - 10 mg PO Q4H PRN PRN PRN Reason: MOD-SEVERE PAIN (4-10/10) Last Admin: 06/16/17 08:31 Dose: 10 mg Pantoprazole Sodium (Protonix) 40 mg PO DAILY [facility] Rivaroxaban (Xarelto) 10 mg PO DAILY@0600 [facility] Last Admin: 06/16/17 06:21 Dose: 10 mg Senna/Docusate Sodium (Senokot-S, Yane-Colace) 2 tablet PO BID [facility] Last Admin: 06/15/17 21:44 Dose: Not Given Sodium Chloride () 5 - 30 ml IV UD PRN PRN Reason: SALINE FLUSH Assessment/Plan Patient is a 56 year old lady who underwent right total knee replacement by Dr. Martín Pabon on 06/15/2017 on account of severe primary osteoarthritis involving the right knee. Hospitalist service was consulted to assist with management of patient medical comorbidities 1. Status post right total knee replacement by Dr. Martín Pabon on 06/15/2017 on account of severe primary osteoarthritis involving the right knee. Patient postoperative orders regarding PT OT, pain management as well as PT prophylaxis addressed by primary service 2. Hypertension-blood pressure controlled, home medications continued with dose adjustment as needed 3. Diabetes mellitus type 2 did continue with patient home regimen in addition to Accu-Cheks before meals and at bedtime with sliding scale coverage 4. Crohn's disease stable 5. DVT prophylaxis; Xarelto Code Visit Inpatient E&M: 29778 Subs Hosp L2
[2017-06-16] MEDS: Famotidine 20 MG Tablet PO (10:35)
[2017-06-16] MEDS: Pantoprazole Sodium 40 MG Tablet PO (10:35)
[2017-06-16] MEDS: Senna/Docusate Sodium 1 Tablet 2 TABLET PO (10:35)
[2017-06-16] MEDS: Cyanocobalamin 500 MCG Tablet 2500 MCG PO (10:37)
--- NOTE | 2017-06-16 11:26 | CASEMGMT ---
JAMARCUS BUI Face to Face with patient for initial transition planning/care coordination assessment. RN HAO introduced self and role at [facility] [place]. Patient lying in bed, alert and oriented. Patient willing to participate in assessment and is able to answer all questions appropriately. Care providers, pharmacy, and demographics verified. See link attached. Patient wishes to discharge home and is setup with [facility] for outpatient therapy, daughter will be providing transportation. Patient states she has no further needs or concerns at this time. CM to follow for discharge planning needs that may arise. Disposition Plan: Patient to discharge home with outpatient therapy, family support, and follow-up plans in place.
--- NOTE | 2017-06-16 11:36 | PCM.PN.ORT ---
Subjective: Patient is resting comfortably in bed during exam. No adverse events overnight. Pain in the right knee has been well controlled. Morning physical therapy session went well. She did practice with a couple stairs. She currently denies chest pain, shortness of breath, dizziness, calf pain. Doing well overall. Her plan is for discharge to home but she feels that she would benefit from 1 more day of physical therapy. Objective: Patient is alert and oriented ?3. No acute distress at rest. Breathing easily without respiratory distress. Inspection of right knee reveals a dressing that is clean, dry, intact. Negative Kimo bilaterally. Without signs of DVT. Sensation intact light touch bilateral lower extremities. Patient able to actively plantar and dorsiflex bilateral feet against resistance. Pedal pulses present and equal bilaterally. Neurovascularly intact. - Physical Exam Vital Signs Temp Pulse Resp BP Pulse Ox 99.7 F H 91 16 120/55 L 96 06/16/17 08:24 06/16/17 08:24 06/16/17 08:24 06/16/17 08:24 06/16/17 08:24 Oxygen Delivery Method Room Air Weight: 87 kg Body Mass Index (BMI) 34.0 Finger Stick Blood Glucose 149 Intake and Output for Last 24 Hours 06/14/17 06/15/17 06/16/17 23:59 23:59 23:59 Intake Total 2255 / 2255 1122 / 1122 Output Total 400 / 400 1000 / 1000 Balance 1855 / 1855 122 / 122 Laboratory Tests Past 24 Hrs 06/16/17 06/16/17 04:50 04:50 WBC 7.1 RBC 3.91 L Hgb 10.3 L Hct 32.4 L MCV 82.9 MCH 26.3 L MCHC 31.8 L RDW 14.9 H RDW Differential 44.2 H Plt Count 159 MPV 10.0 Sodium 137 Potassium 4.0 Chloride 105 Carbon Dioxide 25.0 Anion Gap 7 BUN 10 Creatinine 0.76 Estim Creat Clear Calc 67.56 Est GFR (MDRD) Af Amer 101 Est GFR (MDRD) Non-Af 84 BUN/Creatinine Ratio 13.2 Glucose 133 H Calcium 7.9 L POC Glucose 06/15/17 06/15/17 06/15/17 23:16 22:45 21:53 POC Glucose 93 74 74 06/15/17 15:53 POC Glucose 82 Assessment/Plan 1. Status post right TKA; postop day #1 2. Continue Tylenol, MS Contin, OxyIR for pain control 3. DVT prophylaxis; bilateral teds, SCDs begin Xarelto therapy. Plan for discharge with full strength aspirin 2 times daily 4. Begin PT/OT; weightbearing as tolerated right lower extremity with a walker 5. Drop in hemoglobin/hematocrit, asymptomatic. Without indications for transfusion continue to monitor 6. Encourage incentive spirometry 7. Continue discharge planning with case management. Anticipate discharge to home tomorrow. 8. Continue postoperative medical management per hospitalist 9. Postoperative x-rays were reviewed
[2017-06-16 11:40] LABS: Bedside Glucose 113 mg/dL (70-110)
--- NOTE | 2017-06-16 11:58 | PCM.DC.TKR ---
Discharge Diet: 1800 Calorie Control Diet Discharge Activity: May Not Drive, May not drive while taking narcotic pain medications., Use Walker May shower in (days): 1 - Okay to shower over Mepilex dressing Ice area for (Minutes): 20 - every hour while awake. Weight Bearing Status: Weight bearing as tolerated Elevate: Operative Extremity Additional Activity Instructions:: Wear elastic stockings for 2 weeks after your surgery. See postoperative pink sheet Call your doctor if your incision/area has: Continuous Slow Oozing, Sudden Increased Bleeding, Increased Pain/ Swelling, Increased Redness, Foul Smelling Discharge Call your doctor if you observe: Fever of 101 or Higher, Coldness, Increased Pain, Numbness or Tingling, Change in Color, Shortness of breath, Chest pain, Calf discomfort, Uncontrolled pain Remove Dressing in (days):: 5 Cleanse incision/area with: Soap & Water Additional Dressing/Incision Instructions:: See postoperative pink sheet Additional Instructions: Dr. Martín Pabon (cell) [phone] Allergies/Adverse Reactions: Allergies dyclonine Allergy (Verified 06/04/17 15:15) Rash Sulfa (Sulfonamide Antibiotics) Allergy (Verified 06/04/17 15:15) Rash adhesive tape Adverse Reaction (Verified 06/04/17 15:16) Itching Medications to take at Discharge Adalimumab [Humira] 40 mg SQ Q14D 06/04/17 Amitriptyline HCl 75 mg PO QHS 06/04/17 Cholecalciferol (Vitamin D3) [Vitamin D3] 1,000 unit PO DAILY 06/04/17 Cyanocobalamin (Vitamin B-12) [Vitamin B-12] 2,500 mcg PO DAILY 06/04/17 Folic Acid 2 mg PO DAILY@0800 06/04/17 Glipizide 5 mg PO DAILY 06/04/17 Lisinopril [Zestril] 10 mg PO QHS 06/04/17 Metformin HCl 500 mg PO DAILY 06/04/17 Omeprazole 40 mg PO DAILY 06/04/17 Acetaminophen [Tylenol] 1,000 mg PO Q8 #30 tab 06/16/17 Aspirin 325 mg PO BID #30 tab 06/16/17 MorphINE [Ms Contin] 15 mg PO BID 7 Days #14 tablet 06/16/17 Oxycodone [Oxyir] 5 - 10 mg PO Q4H PRN PRN 7 Days #56 tablet 06/16/17 Senna/Docusate Sodium [Senokot-S] 2 tab PO BID #30 tab 06/16/17 The following prescriptions were given: Oxycodone [Oxyir] 5 - 10 mg PO Q4H PRN PRN 7 Days #56 tablet PRN Reason: Mod-Severe Pain (4-01/13) Acetaminophen [Tylenol] 1,000 mg PO Q8 #30 tab Aspirin 325 mg PO BID #30 tab MorphINE [Ms Contin] 15 mg PO BID 7 Days #14 tablet Senna/Docusate Sodium [Senokot-S] 2 tab PO BID #30 tab Primary Care Physician: Zach Null MD [Primary Care Provider] - Proposed Discharge Date: 06/17/17
[2017-06-16 12:40] LABS: Bedside Glucose 89 mg/dL (70-110)
[2017-06-16 12:40] LABS: Bedside Glucose 65 mg/dL (70-110)
[2017-06-16 13:10] LABS: Bedside Glucose 113 mg/dL (70-110)
[2017-06-16 14:07] VITALS: BP 121/54; PULSE 97; RESP 16; TEMP 37.6; O2SAT 98
[2017-06-16 17:46] LABS: Bedside Glucose 128 mg/dL (70-110)
== END 2017-06-16 17:23 | disposition home or self-care (01) | DRG 470 ==
PROVIDERS: Admitting Provider Orthopaedic Surgery; Family Provider Internal Medicine; PCP Internal Medicine; Visit Provider Internal Medicine
PROC: 0SRC0J9 Replacement of Right Knee Joint with Synthetic Substitute, Cemented, Open Approach (ICD-10-PCS; CPT 27447; principal; 2017-06-15 06:50)
DX: M17.11 Unilateral primary osteoarthritis, right knee (principal); K50.90 Crohn's disease, unspecified, without complications; E11.9 Type 2 diabetes mellitus without complications; Z79.84 Long term (current) use of oral hypoglycemic drugs; I10 Essential (primary) hypertension; Z79.899 Other long term (current) drug therapy; Z87.891 Personal history of nicotine dependence; E66.3 Overweight; Z68.34 Body mass index [BMI] 34.0-34.9, adult; M79.7 Fibromyalgia
CPT/HCPCS: 36415; 73560; 80048; 80076; 82962; 83036; 85027; 85610; 85730; 87077; 87081; 88305; 88311; 97110; 97116; 97162; 97165; 97530; 97535; J7050; J7120

== ENCOUNTER → 2017-06-19 12:36 | Outpatient (CLI) | payer OTHER, SELFPAY ==
--- NOTE | 2017-06-19 12:37 | VDLE_ITS ---
Reason For Study: RLE PAIN RIGHT LEFT GSV is normal. CFV is compressible, spontaneous, phasic, CFV is compressible, spontaneous, phasic, competent, and demonstrates normal competent and demonstrates normal augmentation. augmentation. FV is compressible, spontaneous, phasic, competent and demonstrates normal augmentation. POP V is compressible, spontaneous, phasic, competent and demonstrates normal augmentation. T/P Trunk is compressible. PTV is compressible. RT PerV is compressible. Procedure Exam performed in department. The exam was diagnostic. The study was technically difficult. A preliminary report was called and/or faxed to Dr. Pabon @ 1:oo pm. Interpretation Summary Deep veins of the right lower extremity are patent and compressible segmentally. There is no evidence of right lower extremity deep vein thrombosis. Valvular competence appears intact within the proximal deep venous system on the right . The right greater saphenous vein appears patent and compressible segmentally. Ordering Physician: Martín Pabon Referring Physician: Zach Null M.D. Performed By: Lisa Quintero, GLENDA, RVT
== END ==
LOC: CVS 12:36
PROVIDERS: Family Provider Internal Medicine; PCP Internal Medicine; Visit Provider Orthopaedic Surgery
DX: M79.661 Pain in right lower leg (principal)
CPT/HCPCS: 93971

== ENCOUNTER → 2018-12-03 06:32 | Outpatient (CLI) | payer OTHER, SELFPAY ==
--- NOTE | 2018-12-03 06:33 | CT_ITS ---
STUDY: CT ABDOMEN AND PELVIS WITH CONTRAST REASON FOR EXAM: Female, 58 years old. The patient has a history of Crohn's disease. RADIATION DOSAGE (If Supplied By Facility): CTDIvol = ( 19.96 ) mGy, DLP = ( 2298.21 ) mGycm TECHNIQUE: Transaxial images were obtained from the dome of the diaphragm to the symphysis pubis with oral contrast. 100mL IV/Oral Isovue 300 was administered. Sagittal and coronal images were reconstructed. Enterography examination. Individualized dose optimization techniques were used for this CT. COMPARISON: None. FINDINGS: The visualized lung bases are unremarkable. The visualized portions of the heart are within normal limits. There is decreased attenuation of the liver consistent with steatosis. There are surgical clips in the gallbladder fossa consistent with a prior cholecystectomy. There is mild splenomegaly. Normal pancreas. Normal bilateral adrenal glands. Normal right kidney. Normal left kidney. There is a small hiatal hernia. Normal small intestine. There is evidence of a haustral pattern of the transverse colon as well as the descending colon. Minimal mural thickening with mild degree of increased markings in the surrounding peritoneal fat. Mild degree of inflammatory changes is suspected. There are scattered colonic diverticula consistent with diverticulosis. The appendix is visualized and appears normal. Normal abdominal aorta. Normal inferior vena cava. There is borderline retroperitoneal lymphadenopathy with enlarged nodes no greater than 10mm in the short axis diameter. Normal urinary bladder. There is absence of the uterus consistent with a prior hysterectomy. Normal abdominal wall. Small bilateral inguinal lymph nodes. Disc space narrowing at the L5-S1 level. Minimal anterior listhesis of L4 on L5. CT/Abdomen/Pelvis WITH Contrast IMPRESSION: Diffuse fatty infiltration of the liver. Mild splenomegaly. A haustral pattern involving the transverse colon and left hemicolon with the thickening of the bowel wall and mild increased markings in the surrounding fat. This is suggestive of a mild residual inflammatory change. Electronically Signed: Calvin Flores, at 10:02 EDT , Service support ,
[2018-12-03 15:03] LABS: CREATININE FINGERSTICK 0.83 mg/dL (0.55-1.02); EGFR FINGERSTICK > 60 mL/min (>60)
== END ==
PROVIDERS: Family Provider Internal Medicine; PCP Internal Medicine
DX: K50.80 Crohn's disease of both small and large intestine without complications (principal)
CPT/HCPCS: 74177; Q9967; A4216

== ENCOUNTER 2019-06-21 09:39 | Emergency (ER) | payer OTHER, SELFPAY ==
[2019-06-21 09:40] VITALS: BP 139/58; PULSE 78; RESP 16; TEMP 37; O2SAT 94; BMI 32.5
--- NOTE | 2019-06-21 09:56 | ED.VISSUMM ---
- ER Visit Summary Date of Service: 06/21/19 Chief Complaint: Fall History of Present Illness: The patient is a 58 F who presents with a fall that occurred today. Patient states she was on a stepladder and fell off of the last step while she was coming down. Patient only fell down 1 step off of the ladder. Patient landed on her right hip and low back. Patient complains of pain in these areas. Patient describes the pain as burning but sharp at times. Patient states the pain is worse with movement and better with rest. Patient states initially she had some tingling in the toes of her right foot but states this has resolved. Patient denies any head injury or loss of consciousness. Patient states she was able to ambulate briefly after the fall. Physical Examination: Vital signs are stable. Patient is afebrile. Patient is in no acute distress. Musculoskeletal exam reveals tenderness over the posterior and lateral aspect of the right hip. There is also tenderness over the lumbar spine and paraspinal muscles. There is no bony crepitance or step-off. Range of motion was limited in all motions of the lumbar spine and right hip secondary to pain. There was mild pain with extreme internal rotation. There is no pain with gentle logrolling. There is no obvious deformity. Pedal pulses are equal bilaterally. Sensation was intact light touch in all digits. Test Results: X-rays of the lumbar spine were obtained. There is a grade 1 anterolisthesis of L5 on S1 but there is no acute fracture. X-rays of the right hip were obtained. There is no acute fracture. These were interpreted by the radiologist and reviewed by myself. Emergency Department Course and Treatment: Patient was given ice packs. Patient was given a dose of morphine here. Patient was advised of her x-ray findings. Patient was instructed to use ice to the area. Patient was instructed to follow-up with her primary care physician or [facility] in 5 to 7 days. Patient was instructed to take Tylenol since she states that that is the only pain medication she is allowed to take. Patient understood and was agreeable with the plan. All questions were answered. Disposition: Discharge home Impression: 1. Right hip contusion 2. Lumbosacral strain This note was generated with [employer] software. It may contain incorrect words, spelling, and punctuation that were not noted in review of the chart prior to signing ED Disposition - Plan for ED Patient: Disposition: Home or Assisted Living Diagnosis: Lumbosacral strain, Contusion of right hip, initial encounter Instructions: Hip Contusion, Back Sprain/Strain Referrals: Zach Null MD [Primary Care Provider] - 5-7 Days Corporate,[facility] [GROUP OF PHYSICIANS] - 5-7 Days
[2019-06-21] MEDS: Morphine 4 MG/ML Syringe IV (10:09)
--- NOTE | 2019-06-21 10:17 | RAD_ITS ---
STUDY: X-RAY - LUMBAR SPINE REASON FOR EXAM: Female, 58 years old. Fell off of a ladder at work, landed on right butt cheek, very sore in that area, hip and low back pain TECHNIQUE: 3 view(s) of the lumbar spine were obtained. COMPARISON: None FINDINGS: Normal lumbar lordosis. There is no substantial scoliosis. Grade 1 anterolisthesis of L4 on L5 without spondylolysis. Spondylosis and moderate degree of disc space narrowing at the L5-S1 level. There is atherosclerotic calcification of the abdominal aorta without a demonstrated aneurysm. RAD/Lumbar Spine 2 or 3 Views IMPRESSION: Degenerative changes of the spine, as detailed above. Grade 1 anterior listhesis of L4 on L5 without spondylolysis. Electronically Signed: Calvin Flores, at 10:49 EDT , Service support ,
--- NOTE | 2019-06-21 10:17 | RAD_ITS ---
STUDY: X-RAY - PELVIS AND RIGHT HIP REASON FOR EXAM: Female, 58 years old. Fell off of a ladder at work, landed on right butt cheek, very sore in that area, hip and low back pain TECHNIQUE: 3 views of the pelvis and hip. COMPARISON: None. FINDINGS: There is a non-specific bowel gas pattern. Normal visualized soft tissue structures. Normal bilateral iliac wings, sacroiliac joints and visualized sacrum. Normal bilateral superior and inferior pubic rami. Normal pubic symphysis. Normal bilateral ischial tuberosities. Normal visualized femoral head. Normal acetabulum. Normal hip joint. There is a 5.4 mm x 11.3 mm well-corticated bony density seen in the region of the right hip joint just caliber that to the femoral neck. This most likely represents an old injury. RAD/HIP, UNI W/ Pelvis 2-3 Views IMPRESSION: No acute abnormality is seen. Electronically Signed: Calvin Flores, at 10:46 EDT , Service support ,
[2019-06-21 11:31] VITALS: BP 124/74; PULSE 74; RESP 16; O2SAT 98
== END 2019-06-21 11:33 | disposition home or self-care (01) ==
PROVIDERS: Emergency Provider Emergency Medicine; PCP Internal Medicine
DX: S39.012A Strain of muscle, fascia and tendon of lower back, initial encounter (principal); S70.01XA Contusion of right hip, initial encounter; W11.XXXA Fall on and from ladder, initial encounter; Y93.89 Activity, other specified; Y92.9 Unspecified place or not applicable; Y99.0 Civilian activity done for income or pay; I10 Essential (primary) hypertension; E11.9 Type 2 diabetes mellitus without complications; M79.7 Fibromyalgia; Z79.82 Long term (current) use of aspirin; Z79.84 Long term (current) use of oral hypoglycemic drugs
CPT/HCPCS: 72100; 73502; 96374; 99285; A4216

== ENCOUNTER 2019-07-17 18:06 | Emergency (ER) | payer OTHER, SELFPAY ==
[2019-07-08 11:43] VITALS: BMI 32.5
[2019-07-17 18:07] VITALS: BP 137/67; PULSE 110; RESP 22; TEMP 36.6; O2SAT 94; BMI 31.4
--- NOTE | 2019-07-17 18:28 | ED.VISSUMM ---
- ER Visit Summary Date of Service: 07/17/19 Chief Complaint: Cough History of Present Illness: The patient is a 58 F history of type 2 diabetes gen-[id number]-rktmfxcts, fibromyalgia, hypertension and arthritis. She states she is had 3-week history of a cough. She has done telemedicine visits with her primary care physician's office and then placed on increasing doses of prednisone that initially seem to be helping but now she seems worse. Denies any hemoptysis. Subjective fever but her only temperature is been 99.7. Mild sore throat. No leg pain or swelling. No hemoptysis. No recent travel, surgery, hospitalization or immobilization. Physical Examination: Middle-aged female no acute distress vital signs stable afebrile. Pulse ox 94% on room air no signs hypoxia. H EENT exam unremarkable. Neck nontender no JVD. Lungs clear to auscultation bilaterally. Heart regular rhythm rate about 105 no murmur. Chest wall mild tenderness left lateral rib cage. No crepitance or subcu air. Abdomen soft nontender normal bowel sounds no peritoneal signs. Patient moving all 4 extremities. Calves are nontender without edema or cords. Neurologically she is awake and alert with no focal motor deficits. Test Results: Chest x-ray one-view portable read by myself shows no acute abnormality. Normal cardiac silhouette and lung fisher. No pneumothorax. No infiltrate. The x-ray results with the patient. On repeat exam at 1850 9 PM she is doing well. Emergency Department Course and Treatment: History and exam sounds like a respiratory tract infection. She has had no obvious COVID 19 exposure. Treatment Plan: Continue her current therapy. Outpatient follow-up with her doctor. Disposition: dc Impression: Viral URI This note was generated with [employer] dictation software. It may contain incorrect words, spelling, and punctuation that were not noted in review of the chart prior to signing ED Disposition - Plan for ED Patient: Referrals: Zach Null MD [Primary Care Provider] -
--- NOTE | 2019-07-17 18:35 | RAD_ITS ---
STUDY: X-RAY CHEST REASON FOR EXAM: Female, 58 years old. Rib pain with breathing, productive cough, intermittent fever TECHNIQUE: 2 frontal images of the chest were obtained. COMPARISON: November 24, 2016 FINDINGS: There are low lung findings. There is no new focal consolidation. Normal size heart. Normal mediastinum and kelly. Normal visualized pulmonary arteries. Normal visualized aortic arch and descending thoracic aorta. There are diffuse degenerative changes of the visualized thoracic spine. Normal visualized ribs, clavicles, and shoulders. There is no demonstrated abnormality of the visualized soft tissue structures of the upper abdomen. RAD/Chest 1 View (Portable) IMPRESSION: No acute cardiopulmonary process. Electronically Signed: Marysol Johnson MD at 19:08 EDT Tel , Service support ,
--- NOTE | 2019-07-17 19:01 | ED.DEP ---
ED Disposition - Plan for ED Patient: Disposition: Home or Assisted Living Instructions: ED Chest Pain Atypical Unkn Cause Referrals: Zach Null MD [Primary Care Provider] - 3-5 Days Additional Instructions: Follow-up with your doctor. Your chest x-ray today was unremarkable.
[2019-07-17 19:25] VITALS: BP 130/62; PULSE 100; RESP 16; O2SAT 94
== END 2019-07-17 19:35 | disposition home or self-care (01) ==
LOC: ED 19:30
PROVIDERS: Emergency Provider Emergency Medicine; PCP Internal Medicine
DX: J06.9 Acute upper respiratory infection, unspecified (principal); E11.9 Type 2 diabetes mellitus without complications; I10 Essential (primary) hypertension; M19.90 Unspecified osteoarthritis, unspecified site; M79.7 Fibromyalgia; Z79.84 Long term (current) use of oral hypoglycemic drugs; Z79.52 Long term (current) use of systemic steroids; Z79.899 Other long term (current) drug therapy
CPT/HCPCS: 71045; 99282

== ENCOUNTER 2019-07-28 11:18 | Inpatient (IN) | payer OTHER, SELFPAY ==
[2019-07-28] VITALS (13 sets, daily range): BP systolic 93–155; BP diastolic 62–76; PULSE 99–119; RESP 18–33; TEMP 36.6–37.4; O2SAT 95–100; BMI 31.4; BMI 30.7
--- NOTE | 2019-07-28 11:31 | RAD_ITS ---
STUDY: X-RAY CHEST REASON FOR EXAM: Female, 58 years old. Cough, SOB TECHNIQUE: Single AP portable view of the chest. COMPARISON: Comparison is made with prior study dated July 17, 2019. FINDINGS: EKG electrodes are seen. Elevation of the right hemidiaphragm. Mild increased markings at the lung bases suggestive of bibasilar atelectasis. Blunting of the left costophrenic angle. Normal size heart. Normal mediastinum and kelly. Normal visualized pulmonary arteries. Normal visualized aortic arch and descending thoracic aorta. There are diffuse degenerative changes of the visualized thoracic spine. Normal visualized ribs, clavicles, and shoulders. There is no demonstrated abnormality of the visualized soft tissue structures of the upper abdomen. RAD/Chest 1 View (Portable) IMPRESSION: Mild increased markings at the lung bases suggestive of bibasilar atelectasis. Blunting of the left costophrenic angle. Electronically Signed: Calvin Flores, at 12:46 EDT , Service support ,
--- NOTE | 2019-07-28 11:31 | EKG12_ITS ---
Test Reason : Blood Pressure : / mmHG Vent. Rate : 115 BPM Atrial Rate : 115 BPM P-R Int : 180 ms QRS Dur : 102 ms QT Int : 328 ms P-R-T Axes : 034 -02 029 degrees QTc Int : 453 ms Sinus tachycardia Otherwise normal ECG Confirmed by NEEL MENDOZA, [place] ([id number]), publication editor NAVEEN BRONSON ([id number]) on 08/01/2019 10:13:14 AM Referred By: SHAMIKA Confirmed By:PARIS SHAIKH MD
[2019-07-28] MEDS: 0.9% Normal Saline 1,000 ML 999 ML IV (11:46)
[2019-07-28] MEDS: Morphine 4 MG/ML Syringe IV (11:46)
[2019-07-28 11:51] LABS: Absolute Lymphocyte Count 0.61 X10^3/uL (0.83-4.51); Absolute Neutrophil Count 10.3 X10^3/uL (2.0-7.7); Basophil# 0.03 X10^3/uL; Basophil% 0.3 % (0-1); Eosinophil# 0.04 X10^3/uL; Eosinophils% 0.3 % (0-5); Hematocrit 38.6 % (37-47); Hemoglobin 12.3 g/dL (12.0-15.0); Lymphocyte # 0.61 X10^3/ul (4.0); Lymphocyte % 5.1 % (19-41); Mean Corp Hgb Conc 31.9 g/dL (32-36); Mean Corpuscular Hgb 26.5 pg (27.0-32.0); Mean Corpuscular Volume 83.2 fL (81-99); Mean Platelet Vol. 9.9 fl (6.2-12.0); Monocyte# 0.52 X10^3/uL; Monocyte% 4.3 % (0-10); NRBC Flagged by Analyzer 0 % (0-5); Neutrophil # 10.34 X10^3/uL (2.7-7.7); Neutrophil % 86.2 % (47-70); Platelet Count 234 K/mm3 (150-450); RBC Distribution Width CV 13.6 % (11.6-14.6); RBC Distribution Width SD 41.1 fl (35.1-43.9); Red Blood Count 4.64 M/mm3 (4.2-5.4)
[2019-07-28 11:58] LABS: International Normalized Ratio 1.1; Prothrombin Time (Protime)PT. 13.5 SECONDS (11.7-14.9)
[2019-07-28 11:59] LABS: Partial Thromboplast Time 36.2 Seconds (24.1-36.2)
[2019-07-28 12:06] LABS: ALB/GLOB Ratio 0.6 RATIO (0.9-2.4); AST(SGOT) 16 U/L (15-37); Alanine Aminotransfer ALT/SGPT 26 U/L (13-56); Albumin, Serum 2.8 g/dL (3.2-5.0); Alkaline Phosphatase 70 U/L (45-117); Anion Gap 8 (5-15); BUN 13 mg/dL (7-18); BUN/Creat Ratio 16.1 RATIO (10-20); Calcium,Total 9.1 mg/dL (8.5-10.1); Chloride 97 mmol/L (98-107); Creatinine, Serum 0.81 mg/dL (0.55-1.02); EST Glomerular Filtration Rate 77 mL/min (>60); Est Glom Filt Rate - Afr Amer 93 mL/min (>60); Estimated Creatinine Clearance 70.01 ml/min; Globulin 4.8 g/dL (2.2-4.2); Glucose 280 mg/dL (74-106); Protein, Total 7.6 g/dL (6.4-8.2); Sodium Level 132 mmol/L (136-145)
[2019-07-28 12:22] LABS: Lactic Acid 2.5 mmol/L (0.4-1.9)
--- NOTE | 2019-07-28 12:49 | CT_ITS ---
STUDY: CTA CHEST REASON FOR EXAM: Female, 58 years old. PT STATED SHORT OF BREATH, B/L RIB PAIN, HTN, DB RADIATION DOSAGE (If Supplied By Facility): CTDIvol = ( 9.49 ) mGy, DLP = ( 439.74 ) mGycm TECHNIQUE: The examination was performed with the intravenous administration of 100 ML ISOVUE 370. Post-processing of the angiographic images was performed, with multiplanar reformation and 3D reconstruction. Individualized dose optimization techniques were used for this CT. COMPARISON: Comparison is made with prior chest radiograph done earlier today. FINDINGS: Elevation of the right hemidiaphragm. Normal enhancement of the main pulmonary artery and right and left pulmonary arteries. Normal enhancement of the bilateral peripheral pulmonary arteries. There is no demonstrated pulmonary embolism. There is atherosclerotic calcification of the aortic arch with tortuosity. There is no demonstrated aortic dissection. Normal heart and pericardium. Normal mediastinum. Normal hilar regions. Normal visualized trachea and bronchi. The lungs are well expanded. Small right pleural effusion with right lower lobe infiltrate. Mild degree of increased markings at the left lung base. Normal chest wall structures. There are degenerative changes of thoracic spine. Fatty infiltration of the liver. CT/CTA Chest W/WO Contrast IMPRESSION: Small right pleural effusion with right lower lobe infiltrate. Increased markings at the left lung base suggestive of atelectasis. Fatty infiltration of the liver. Electronically Signed: Calvin Flores, at 13:33 EDT , Service support ,
[2019-07-28] MEDS: HYDROmorphone 1 MG/ML Syringe IV (13:00)
[2019-07-28 13:04] LABS: Mucous, Urine 0 SEEN /hpf (<or=2+); Red Blood Cells-Urine 0 SEEN /hpf (0-5)
[2019-07-28 13:35] LABS: Color, Urine Yellow (Yellow); Glucose, Dipstick 100 mg/dl (Normal); Ketone-Dipstick 5 mg/dl (Negative); Leukocyte Esterase-Dipstick 100 /ul (Negative); Nitrite-Dipstick Negative (Negative); Occult Blood-Urine 10 /ul (Negative); Protein-Dipstick 30 mg/dl (Negative); Urine Bilirubin Dipstick Negative (Negative); Urine Clarity Sl. Cloudy (Clear); Urine Urobilinogen 4 mg/dl (Normal)
--- NOTE | 2019-07-28 13:40 | ED.VISSUMM ---
- ER Visit Summary Date of Service: 07/28/19 Chief Complaint: Cough History of Present Illness: The patient is a [address] Null. She reports that she has had a cough for approximately 1 month. States that this is productive only when I clear my throat. She denies fever or chills. She does report she has had night sweats. She has had a sore throat that it currently is 1 out of 10 in severity. She is also congested. She reports that she has had shortness of breath that is severe at worst and mild currently. She has right-sided chest pain that she describes as a dull, aching pain for the past 2 days. She had a sharp stabbing pain for approximate the past 3 weeks. Patient denies sick contacts. 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 She states that she has had 3 rounds of prednisone over the past month with transient relief. She finished her second round of azithromycin yesterday. Physical Examination: Vitals: 98.0, 155/65, 119, 33, 97% on room air which is not hypoxic. General: Well-nourished and well-developed. Head: Normocephalic atraumatic. Neck: Supple, no lymphadenopathy. No JVD. Nontender. Cardiovascular: Tachycardic regular rhythm. No murmurs. Respiratory: No respiratory distress. Clear to auscultation bilaterally. Abdominal: Soft, nontender, nondistended, normal bowel sounds. No guarding, rebound, or peritoneal signs. Back: Nontender. Extremities: Mild tenderness palpation the right calf, no edema. Skin: Normal color, no rash. Neurologic: Alert and oriented ?3. Cranial nerves II through XII are intact. Normal strength and sensation. Psych: Normal affect. Test Results: EKG is sinus tach at [address] changes. Troponin is negative. Lactic acid is 2.5. LFTs marked for an albumin of 2.8 globulin 4.8. Coags are normal. Chem-7 shows a sodium 132, chloride 97, glucose of 280. CBC shows a white count 12.0 with 86 segmented neutrophils of 5 lymphocytes. Clinical Impression(s) from Imaging Studies Chest X-Ray 07/28/19 11:31 IMPRESSION: Mild increased markings at the lung bases suggestive of bibasilar atelectasis. Blunting of the left costophrenic angle. Electronically Signed: Calvin Flores, at 12:46 EDT , Service support , Chest CTA 07/28/19 12:49 IMPRESSION: Small right pleural effusion with right lower lobe infiltrate. Increased markings at the left lung base suggestive of atelectasis. Fatty infiltration of the liver. Electronically Signed: Calvin Flores, at 13:33 EDT , Service support , Emergency Department Course and Treatment: Patient went to the restroom while here. Her pulse ox decreased to 87% on room air. She was given morphine and Dilaudid IV. She just finished her second round of Zithromax. Rather than give her Rocephin and Zithromax I gave her a dose of Levaquin IV. She is resting comfortably. Treatment Plan: Patient will be discussed with the hospitalist and admitted for further evaluation and treatment. Disposition: Admitted in improved, but serious condition. Impression: 1. Pneumonia with failed outpatient treatment. 2. Hypoxia. 3. Severe sepsis. 4. Immunosuppressed by Remicade. 5. Critical care time 33 minutes. This note was generated with Entrecardation software. It may contain incorrect words, spelling, and punctuation that were not noted in review of the chart prior to signing ED Disposition - Plan for ED Patient: Referrals: Zach Null MD [Primary Care Provider] -
--- NOTE | 2019-07-28 13:48 | HP.PCM_ITS ---
Problem List (1) Severe sepsis Status: Acute (2) Pneumonia Status: Acute Qualifiers: Pneumonia type: due to unspecified organism Laterality: unspecified laterality Lung location: unspecified part of lung Qualified Code(s): J18.9 - Pneumonia, unspecified organism (3) HLD (hyperlipidemia) Status: Chronic Qualifiers: Hyperlipidemia type: unspecified Qualified Code(s): E78.5 - Hyperlipidemia, unspecified (4) Chronic back pain Status: Chronic Qualifiers: Back pain location: back pain in unspecified location Back pain laterality: unspecified Qualified Code(s): M54.9 - Dorsalgia, unspecified; G89.29 - Other chronic pain (5) Fibromyalgia Status: Chronic (6) Psoriatic arthritis Status: Chronic (7) Rheumatoid arthritis Status: Chronic Qualifiers: Rheumatoid arthritis location: unspecified site Rheumatoid factor presence: unspecified presence Qualified Code(s): M06.9 - Rheumatoid arthritis, unspecified (8) GERD (gastroesophageal reflux disease) Status: Chronic Qualifiers: Esophagitis presence: esophagitis presence not specified Qualified Code(s): K21.9 - Gastro-esophageal reflux disease without esophagitis (9) Hypertension Status: Chronic Qualifiers: Hypertension type: essential hypertension Qualified Code(s): I10 - Essential (primary) hypertension (10) Inflammatory bowel disease Status: Chronic Comment: Crohn's Disease (11) Type II diabetes mellitus Status: Chronic Qualifiers: Diabetes mellitus terminal make up operator insulin use: without terminal make up operator use Diabetes mellitus complication status: with other specified complication Qualified Code(s): E11.69 - Type 2 diabetes mellitus with other specified complication History of Present Illness Date of Admission: 07/28/19 Chief Complaint: Chest pain, dyspnea The patient is a 58 y/o F w/ PMHx: Diabetes mellitus type II, GERD w/ Hx gastric ulcer, Chronic back pain, HTN, HLD, Anxiety and Depression, Obesity, Fibromyalgia, Psoriatic arthritis and Rheumatoid arthritis, Crohn's Disease on remicade with last dose 06/16/29, 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 [employer] who presents to the [facility] ED on 07/28/19 with history of several weeks of progressively worsening myalgias, severe sore throat initially although that has improved with ongoing cough productive of occasionally thick white sputum with progressively worsening dyspnea, worse with exertion with no specific fevers but significant night sweats and worsening right-sided pleuritic chest pain described as a stabbing, 10 out of 10 with PCP evaluation over the last 3 weeks with administration of 2 antibiotic rounds including Z-Jorden and 3 bursts of prednisone therapy without improvement with eventual referral of patient to the ED secondary to ongoing symptoms and worsening dyspnea. She denies any severe alteration to sense of taste or smell. Work-up in the ED included T 98.4, heart rate 119, BP 155 or 65, respiratory rate 33, initially 97% on room air however, she dropped to 87% with attempt to walk to the restroom, CBC with WC 12, hemoglobin 12.3, platelet 234 with left shift with lymphopenia concurrently, unremarkable coags, CMP with sodium 132, chloride 97, glucose 280, lactic acid 2.5, hepatic profile not marked appearing, troponin less than 0.015, urinalysis with specific gravity 1.020, protein 30, glucose 100, ketone 5, occult blood 10, leukocyte Estrace 100, negative nitrite, pending urine WBCs, SCC and bacteria, chest x-ray with mild increased markings at the lung bases suggestive of bibasilar atelectasis and blunting the left costophrenic angle, CTPA with a small right pleural effusion and right lower lobe infiltrate with increased markings also at the left lung base suggestive of atelectasis with fatty infiltration of the liver, blood culture x2 pending per ED, urine culture pending per ED, respiratory viral panel pending per ED. In the ED patient administered zosyn, vanc given recent serial abx therapies without improvement and immunocompromised status, Dilaudid, morphine and normal saline. Past Medical History Past Medical History (Chronic Problems): Chronic Problems (Last Reviewed 07/08/19 @ 11:42 by Shireen Schilling) HLD (hyperlipidemia) (Chronic) Chronic back pain (Chronic) Fibromyalgia (Chronic) Psoriatic arthritis (Chronic) Rheumatoid arthritis (Chronic) GERD (gastroesophageal reflux disease) (Chronic) Hypertension (Chronic) Inflammatory bowel disease (Chronic) Crohn's Disease Type II diabetes mellitus (Chronic) Medical History: Medical History (Last Reviewed 07/08/19 @ 11:42 by Shireen Schilling) Back pain M54.9 Bloody stools K92.1 Chest pain R07.9 Diabetes E11.9 Diarrhea R19.7 Difficulty balancing R29.818 History of arthritis Z87.39 History of hypertension Z86.79 Knee pain M25.569 Shoulder pain M25.519 Stomach ulcer K25.9 Allergies dyclonine Allergy (Verified 07/28/19 11:21) Rash Sulfa (Sulfonamide Antibiotics) Allergy (Verified 07/28/19 11:21) Rash adhesive tape Adverse Reaction (Verified 07/28/19 11:21) Itching Home Medications: Ambulatory Orders Medication Instructions Recorded Amitriptyline HCl 75 mg PO QHS 06/04/17 Folic Acid 2 mg PO DAILY@0800 06/04/17 Lisinopril [Zestril] 10 mg PO QHS 06/04/17 Acetaminophen [Tylenol] 1,500 mg PO DAILY PRN PRN 07/28/19 Glipizide [Glipizide ER] 5 mg PO DAILY 07/28/19 Infliximab [Remicade] 1 dose IV X1 07/28/19 Metformin HCl [Metformin HCl ER] 500 mg PO DAILY 07/28/19 Omeprazole 40 mg PO DAILY 07/28/19 Pravastatin [Pravachol] 20 mg PO QHS 07/28/19 Surgical History: Surgical History (Last Reviewed 07/08/19 @ 11:42 by Shireen Schilling) History of knee replacement Z96.659 Surgical History: cholecystectomy, - - Bilateral carpal tunnel release, right total knee replacement, cholecystectomy, hysterectomy, bilateral knee arthroscopic prior surgery, tonsillectomy,. Psychiatric History: No pertinent psych hx BULB PACKER History: No pertinent BULB PACKER history Lives: Spouse/ Significant Other Smoking Status: Former smoker - Patient quit cigarette tobacco usage approximately 17 years prior with prior to this approximately 5 cigarettes daily since he was a teenager. Tobacco Use: Non-smoker, Secondhand - Patient however continues to have secondhand tobacco cigarette exposure from her . Alcohol: None Drugs: None - *Family History Maternal History Items: Diabetes, High Cholesterol, Heart Disease, Hypertension Paternal History Items: Diabetes, High Cholesterol, Heart Disease, Hypertension Review of Systems Constitutional: Reports: Anorexia, Chills, Night Sweats, Malaise, Weakness, Fatigue. Denies: Fever, Weight Change HEENT: Reports: Head Aches, Sinus Congestion, Sore Throat. Denies: Sinus Drainage Cardiovascular: Reports: Chest Pain. Denies: Light Headedness, Orthopnea, Palpitations, Syncope Respiratory: Reports: Cough, Pleuritic Pain, Shortness of Breath, Shortness of breath at rest, Shortness of breath upon exertion, Sputum production. Denies: Wheezing Gastrointestinal: Reports: Diarrhea. Denies: Abdominal Pain, Nausea, Vomiting Genitourinary: Denies: Dysuria Musculoskeletal: Reports: Back Pain, Joint Pain, Muscle pain. Denies: Joint Tenderness Skin: Denies: Rash, Wounds Neurological: Denies: Numbness, Tingling, Focal weakness Psychiatric: Reports: Anxiety, Depression. Denies: Homicidal Ideations, Suicidal Ideations Hematologic/ Lymphatic: Denies: Easy Bruising, Easy Bleeding VTE Information - Inpt Only VTE Present on Admission: No VTE Mechan Device Prophylaxis: SCD's VTE Pharm Prophylaxis ordered?: Yes Patient Problems: Active and Suspected Problems (Last Reviewed 07/08/19 @ 11:42 by Shireen Schilling) Severe sepsis (Acute) Pneumonia (Acute) Subjective: Patient seated upright in the ED bed, fatigued and ill-appearing, no acute distress. Objective: Physical Examination: General: awake, alert, oriented x 3 and cooperative, seated upright in the ED bed, fatigued and ill-appearing. Skin: normal color, turgor, no icterus, cyanosis. HEENT: AT/NC, EOMI, PERRLA, dry MM, no carotid bruits or JVD noted. Lungs: Extremely poor effort secondary to pleuritic right-sided chest pain with increased effort, diminished breath sounds throughout, greater bases, no rales, ronchi or wheezing. Heart: Tachycardic with regular rhythm; no gallop, rub audible. Abdomen: soft, obese, NTTP, ND, normal BS, no HSM. Extremities: no cyanosis, clubbing, or edema. Neurological: patient awake, alert, oriented x 3; cognitive function appears ba seline intact; pupils equally reactive to light and accomodation; cranial nerves II-XII grossly normal, moving all 4 extremities, no focal deficits, strength severely global decrease secondary to acute presentation. Psychiatric: affect appears fatigued, ill-appearing, no acute evidence of depressive or anxiety feelings. - Physical Exam Vitals/I&O's: Vital Signs Temp Pulse Resp BP Pulse Ox 99 F 112 H 20 H 149/76 H 98 07/28/19 12:54 07/28/19 12:54 07/28/19 12:54 07/28/19 12:54 07/28/19 12:54 Oxygen Flow Rate (L/min) 2 Oxygen Delivery Method Nasal Cannula Weight: 194 lb 14.218 oz Body Mass Index (BMI) 31.4 Finger Stick Blood Glucose 149 Intake and Output for Last 24 Hours 07/26/19 07/27/19 07/28/19 23:59 23:59 23:59 Intake Total 1000 / 1000 Balance 1000 / 1000 Laboratory Results 07/28/19 11:35: WBC 12.0 H, RBC 4.64, Hgb 12.3, Hct 38.6, MCV 83.2, MCH 26.5 L, MCHC 31.9 L, RDW Std Deviation 41.1, RDW Coeff of Parmjit 13.6, Plt Count 234, MPV 9.9, Immature Gran % (Auto) 3.800 H, Neut % (Auto) 86.2 H, Lymph % (Auto) 5.1 L, [place] % (Auto) 4.3, Eos % (Auto) 0.3, Baso % (Auto) 0.3, Absolute Neuts (auto) 10.3 H, Absolute Lymphs (auto) 0.61 L, Nucleated RBC % 0 07/28/19 11:35: PT 13.5, INR 1.1, APTT 36.2 07/28/19 11:35: Sodium 132 L, Potassium 4.0, Chloride 97 L, Carbon Dioxide 27.0, Anion Gap 8, BUN 13, Creatinine 0.81, Estim Creat Clear Calc 70.01, Est GFR (MDRD) Af Amer 93, Est GFR (MDRD) Non-Af 77, BUN/Creatinine Ratio 16.1, Glucose 280 H, Calcium 9.1, Total Bilirubin 0.80, AST 16, ALT 26, Alkaline Phosphatase 70, Troponin I < 0.015, Total Protein 7.6, Albumin 2.8 L, Globulin 4.8 H, Albumin/Globulin Ratio 0.6 L 07/28/19 11:35: Lactic Acid 2.5 H* 07/28/19 12:45: Urine Color Yellow, Urine Clarity Sl. Cloudy, Urine pH 6.0, Ur Specific Clio 1.020, Urine Protein 30 H, Urine Glucose (UA) 100 H, Urine Ketones 5 H, Urine Occult Blood 10 H, Urine Nitrite Negative, Urine Bilirubin Negative, Urine Urobilinogen 4 H, Ur Leukocyte Esterase 100 H, Urine RBC Pending, Urine WBC Pending, Ur Squamous Epith Cells Pending, Urine Bacteria Pending, Urine Mucus Pending Current Medications Levofloxacin (Levaquin Iv) 750 mg in 150 mls @ 100 mls/hr IV X1 ONE Stop: 07/28/19 15:06 Assessment/Plan All Active Problems (Last Reviewed 07/08/19 @ 11:42 by Shireen Schilling) Severe sepsis (Acute) Pneumonia (Acute) Contusion of right hip, initial encounter (Acute) Low back strain (Acute) The patient is a 58 y/o F w/ PMHx: Diabetes mellitus type II, GERD w/ Hx gastric ulcer, Chronic back pain, HTN, HLD, Anxiety and Depression, Obesity, Fibromyalgia, Psoriatic arthritis and Rheumatoid arthritis, Crohn's Disease on remicade with last dose 06/16/29 who presents to the [facility] ED on 07/28/19 with several weeks of worsening myalgias, severe sore throat, ongoing cough productive of thick white sputum, dyspnea, no specific fevers but significant night sweats and worsening right-sided pleuritic chest pain with administration of 2 antibiotic rounds including Z-Jorden and 3 bursts of prednisone therapy without improvement with now worsening dyspnea. 1. Acute Severe Sepsis secondary to Acute Dyspnea, Cough, Pleuritic Chest pain, Fever with RLL Pneumonia secondary to suspected CAP, however, possible Acute Viral Syndrome, COVID-19: Patient with mild leukocytosis with left shift however with concurrent lymphopenia, CTPA with a small right pleural effusion and right lower lobe infiltrate with increased markings also at the left lung base suggestive of atelectasis, lactic acid 2.5, will admit to the COVID unit as PCU status, will maintain on oxygen with wean as tolerated to room air, continue MDI inhaler PRN albuterol, maintain on IV zosyn and vancomycin with pending MRSA screen given immunosuppressed history and recent several rounds antibiotic therapy as well as serial rounds steroids, HOB, IS parameters w/ pending sputum cultures and urine antigens, pending respiratory viral panel, will obtain procalcitonin, CRP, CPK, Ferritin, LDH, continue supportive care including q 2 hour turning including prone given no prone bed availability and judicious hydration, closely monitor for worsening status for ARDS and multiorgan failure, request COVID-19 testing. If patient worsens with need for oxygen >6 L would plan intubation with ICU physician continued care. Bld cx x 2 obtained in the ED. 2. Rheumatoid arthritis, psoriatic arthritis, history of Crohn's disease: Patient with last Remicade regimen administered on 06/16/1929, continue to hold. Serial rounds of prednisone specifically 3 recently without improvement in #1. Continue folic acid. 3. Anxiety and depression: Not on regimen, encourage continued outpatient follow-up with therapy as needed. 4. Diabetes mellitus type II: Hold oral home regimen, ADA diet, accu checks w/ ISS. 5. Hypertension: Continue home regimen including lisinopril, PRN hydralazine. 6. Hyperlipidemia: Continue home statin regimen. 7. Obesity: Weight loss and lifestyle changes encouraged. 8. GERD with history of gastric ulcer: Maintain on PPI. 9. DVT prophylaxis: SCDs, Lovenox. 10. CODE status: Patient does not have HC POA nor living will set up. Discussed CODE status at length including difference between FULL code, DNR-CCA and DNR- CC status. Following discussions about the differences in these status, requested Full Code status. Advanced Care Planning Face to Face Time: 16 minutes. Inpatient E&M: 17087 Init Hosp L3 Procedures: 00402 Advncd Care Plan 30 Min
[2019-07-28 13:54] LABS: Bacteria RARE /hpf (None Seen); Squamous Epithelial Cells - UA 5-10 SEEN /hpf (5-10); White Blood Cells 5-10 SEEN /hpf (0-5)
[2019-07-28] MEDS: levoFLOXacin IV 750 MG/150 ML BAG 100 MG IV (14:04)
--- NOTE | 2019-07-28 15:18 | ED.RN ---
PER ED MD, CONTINUE LEVAQUIN ATB IN ED. NEW ATB WERE ORDERED AFTER LEVAQUIN STARTED.
[2019-07-28 15:45] LABS: Reflex Lactate? Y
[2019-07-28] MEDS: 0.9% Normal Saline 1,000 ML 100 ML IV (17:10)
[2019-07-28 17:15] LABS: Ferritin 388 ng/mL (8-252); LDH 307 U/L (84-246); Magnesium 1.5 mg/dL (1.6-2.6)
[2019-07-28 17:20] LABS: Bedside Glucose 129 mg/dL (70-110)
[2019-07-28 17:37] LABS: Lactic Acid 1.2 mmol/L (0.4-1.9)
[2019-07-28 17:43] LABS: Procalcitonin 0.08 ng/mL (0.00-0.09)
[2019-07-28 20:02] LABS: M R Staph aureus DNA By PCR Negative (Negative); Probe Check PASS; Specimen Processing Control PASS
--- NOTE | 2019-07-28 20:47 | PCM.RX.CS ---
Consult Pharmacy has been consulted to manage selected antiobiotic: Vancomycin Type of Consult: New start Suspected Infection: Sepsis Labs: Sodium 132 mmol/L (136-145) L 07/28/19 11:35 Potassium 4.0 mmol/L (3.5-5.1) 07/28/19 11:35 Chloride 97 mmol/L (98-107) L 07/28/19 11:35 Carbon Dioxide 27.0 mmol/L (21.0-32.0) 07/28/19 11:35 Anion Gap 8 (5-15) 07/28/19 11:35 BUN 13 mg/dL (7-18) 07/28/19 11:35 Creatinine 0.81 mg/dL (0.55-1.02) 07/28/19 11:35 Est GFR (MDRD) Af Amer 93 mL/min (>60) 07/28/19 11:35 Est GFR (MDRD) Non-Af 77 mL/min (>60) 07/28/19 11:35 BUN/Creatinine Ratio 16.1 RATIO (10-20) 07/28/19 11:35 Glucose 280 mg/dL (74-106) H 07/28/19 11:35 Microbiology: Microbiology 07/28/19 18:00 Urine, Clean Catch Legionella Antigen - Final 07/28/19 18:00 Urine, Clean Catch Streptococcus pneumoniae Antigen (M - Final 07/28/19 11:40 Mucosa - Nose Respiratory Panel (PCR) - Final Weight used for dosin kg Estimated Creatinine Clearance: 70ml/min Goal Trough: 15-20 mcg/mL Pharmacy Plan for Drug Dosin/23--new admit to icu: sepsis/pna SrCr 0.81 CrCl 70.01 Goal Trough: 15-20 Administered doses: 07/27-1250mg x1 dose in the ER --not given 07/27-2000mg loading dose @ 1848 Recommend Vancomycin 1250mg starting 07/29/19 at 0700. Trough: 07/30/19 @ 0630 Pharmacy Service will continue to monitor and adjust dosing as required. Follow-Up Labs: Trough Vancomycin - 07/30/19 @ 0630
[2019-07-28] MEDS: Amitriptyline 25 MG Tablet 75 MG PO (21:14)
[2019-07-28] MEDS: Pravastatin 20 MG Tablet PO (21:14)
[2019-07-28] MEDS: Lisinopril 10 MG Tablet PO (21:14)
[2019-07-28] MEDS: HYDROmorphone 0.5 MG/0.5 ML SYRINGE IV (21:14)
[2019-07-28 21:36] LABS: Bedside Glucose 125 mg/dL (70-110)
[2019-07-29] VITALS (13 sets, daily range): BP systolic 106–142; BP diastolic 54–74; PULSE 92–130; RESP 16–22; TEMP 36.8–37.9; O2SAT 86–97
[2019-07-29] MEDS: oxyCODONE 5 MG Tablet PO ×3 (02:26→17:50)
--- NOTE | 2019-07-29 04:13 | RAD_ITS ---
STUDY: X-RAY CHEST REASON FOR EXAM: Female, 58 years old. Dyspnea, cough TECHNIQUE: Single AP portable view of the chest. COMPARISON: July 28, 2019 chest x-ray, December 22, 2012 chest x-ray FINDINGS: Lungs underexpanded. There is elevation of the right hemidiaphragm similar to prior study. There is increased density at the bilateral lung bases. There is mild cardiac enlargement. Normal mediastinum and kelly. Normal visualized pulmonary arteries. Normal visualized aortic arch and descending thoracic aorta. There are diffuse degenerative changes of the visualized thoracic spine. There is degenerative osteoarthritis of the bilateral shoulders. There is no demonstrated abnormality of the visualized soft tissue structures of the upper abdomen. RAD/Chest 1 View (Portable) IMPRESSION: Underexpansion of the lungs. Increased density in the right lower lobe suspicious for focal infiltrate and/or effusion. Left lower lobe atelectasis. Electronically Signed: Paulette Denson MD at 4:44 EDT Tel , Service support ,
[2019-07-29] MEDS: 0.9% Normal Saline 1,000 ML 100 ML IV ×3 (05:57→22:54)
[2019-07-29 06:02] LABS: Absolute Lymphocyte Count 1.11 X10^3/uL (0.83-4.51); Absolute Neutrophil Count 9.5 X10^3/uL (2.0-7.7); Basophil# 0.04 X10^3/uL; Basophil% 0.3 % (0-1); Eosinophil# 0.12 X10^3/uL; Hematocrit 34.4 % (37-47); Lymphocyte # 1.11 X10^3/ul (4.0); Lymphocyte % 9.3 % (19-41); Mean Corpuscular Hgb 27.3 pg (27.0-32.0); Mean Corpuscular Volume 85.4 fL (81-99); Mean Platelet Vol. 9.5 fl (6.2-12.0); Monocyte% 5.8 % (0-10); NRBC Flagged by Analyzer 0 % (0-5); Neutrophil # 9.53 X10^3/uL (2.7-7.7); Neutrophil % 79.4 % (47-70); Platelet Count 209 K/mm3 (150-450); RBC Distribution Width CV 13.8 % (11.6-14.6); RBC Distribution Width SD 42.6 fl (35.1-43.9); Red Blood Count 4.03 M/mm3 (4.2-5.4)
[2019-07-29 06:19] LABS: ALB/GLOB Ratio 0.5 RATIO (0.9-2.4); AST(SGOT) 16 U/L (15-37); Alanine Aminotransfer ALT/SGPT 22 U/L (13-56); Albumin, Serum 2.2 g/dL (3.2-5.0); Alkaline Phosphatase 60 U/L (45-117); Anion Gap 7 (5-15); BUN 11 mg/dL (7-18); BUN/Creat Ratio 17.1 RATIO (10-20); Calcium,Total 8.4 mg/dL (8.5-10.1); Chloride 103 mmol/L (98-107); Creatinine, Serum 0.64 mg/dL (0.55-1.02); EST Glomerular Filtration Rate 100 mL/min (>60); Est Glom Filt Rate - Afr Amer 121 mL/min (>60); Globulin 4.1 g/dL (2.2-4.2); Glucose 152 mg/dL (74-106); Potassium 3.9 mmol/L (3.5-5.1); Protein, Total 6.3 g/dL (6.4-8.2); Sodium Level 135 mmol/L (136-145)
--- NOTE | 2019-07-29 07:07 | PN_ITS ---
Patient Problems: Active and Suspected Problems (Last Reviewed 07/08/19 @ 11:42 by Shireen Schilling) Severe sepsis (Acute) Pneumonia (Acute) Subjective: Patient with continued generalized body aches, fatigue, malaise with nausea without any emesis and ongoing cough but less in dyspnea. Patient understand intention for continued antibiotic therapies, continued oxygen supplementation with wean and pending COVID labs. Patient denies fevers, chills, emesis, abdominal pain, chest pain or worsened dyspnea. Objective: Physical Examination: General: awake, alert, oriented x 3 and cooperative, seated upright in the the ICU bed, fatigued, notes feeling improved since day prior. Skin: normal color, turgor, no icterus, cyanosis. HEENT: AT/NC, EOMI, PERRLA, improved, MMM. Lungs: Ongoing decreased effort although mildly improved since admission, ongoing pleuritic right-sided chest pain with increased effort, diminished breath sounds throughout, greater bases, no rales, ronchi or wheezing. Heart: Proved, regular rate and regular rhythm; no gallop, rub audible. Abdomen: soft, obese, NTTP, ND, normal BS. Extremities: no cyanosis, clubbing, or edema. Neurological: patient awake, alert, oriented x 3; cognitive function appears baseline intact; pupils equally reactive to light and accomodation; cranial nerves II-XII grossly normal, moving all 4 extremities, no focal deficits, strength mildly improved, moderately to severely globally decreased. Psychiatric: affect appears fatigued, ill-appearing but improved from day prior, no acute evidence of depressive or anxiety feelings. Vitals/I&O's: Vital Signs Temp Pulse Resp BP Pulse Ox 99.4 F H 95 22 H 106/74 95 07/29/19 06:07 07/29/19 06:07 07/29/19 06:07 07/29/19 06:07 07/29/19 06:07 Oxygen Flow Rate (L/min) 2 Oxygen Delivery Method Room Air Weight: 190 lb Body Mass Index (BMI) 30.7 Finger Stick Blood Glucose 149 Intake and Output for Last 24 Hours 07/27/19 07/28/19 07/29/19 23:59 23:59 23:59 Intake Total 1979 / 2039 1180 / 1180 Output Total 300 / 550 550 / 550 Balance 1680 / 1490 630 / 630 Microbiology Past 72 Hours 07/28/19 18:00 Urine, Clean Catch Legionella Antigen - Final 07/28/19 18:00 Urine, Clean Catch Streptococcus pneumoniae Antigen (M - Final 07/28/19 11:40 Mucosa - Nose Respiratory Panel (PCR) - Final Laboratory Results 07/28/19 11:35: WBC 12.0 H, RBC 4.64, Hgb 12.3, Hct 38.6, MCV 83.2, MCH 26.5 L, MCHC 31.9 L, RDW Std Deviation 41.1, RDW Coeff of Parmjit 13.6, Plt Count 234, MPV 9.9, Immature Gran % (Auto) 3.800 H, Neut % (Auto) 86.2 H, Lymph % (Auto) 5.1 L, Mayes % (Auto) 4.3, Eos % (Auto) 0.3, Baso % (Auto) 0.3, Absolute Neuts (auto) 10.3 H, Absolute Lymphs (auto) 0.61 L, Nucleated RBC % 0 07/28/19 11:35: PT 13.5, INR 1.1, APTT 36.2 07/28/19 11:35: Sodium 132 L, Potassium 4.0, Chloride 97 L, Carbon Dioxide 27.0, Anion Gap 8, BUN 13, Creatinine 0.81, Estim Creat Clear Calc 70.01, Est GFR (MDRD) Af Amer 93, Est GFR (MDRD) Non-Af 77, BUN/Creatinine Ratio 16.1, Glucose 280 H, Calcium 9.1, Total Bilirubin 0.80, AST 16, ALT 26, Alkaline Phosphatase 70, Troponin I < 0.015, Total Protein 7.6, Albumin 2.8 L, Globulin 4.8 H, Albumin/Globulin Ratio 0.6 L 07/28/19 11:35: Lactic Acid 2.5 H* 07/28/19 11:35: Magnesium 1.5 L, Ferritin 388 H, Lactate Dehydrogenase 307 H, C- React Prot Ext Range 126.00 H 07/28/19 11:40: COVID-19 ([facility]) Pending 07/28/19 12:45: Urine Color Yellow, Urine Clarity Sl. Cloudy, Urine pH 6.0, Ur Specific [place] 1.020, Urine Protein 30 H, Urine Glucose (UA) 100 H, Urine Ketones 5 H, Urine Occult Blood 10 H, Urine Nitrite Negative, Urine Bilirubin Negative, Urine Urobilinogen 4 H, Ur Leukocyte Esterase 100 H, Urine RBC 0 SEEN, Urine WBC 5-10 SEEN, Ur Squamous Epith Cells 5-10 SEEN, Urine Bacteria RARE, U rine Mucus 0 SEEN 07/28/19 16:55: Lactic Acid 1.2 07/28/19 16:55: Procalcitonin 0.08 07/28/19 17:06: POC Glucose 129 H 07/28/19 18:00: MRSA (PCR) Negative 07/28/19 21:13: POC Glucose 125 H 07/29/19 06:00: WBC 12.0 H, RBC 4.03 L, Hgb 11.0 L, Hct 34.4 L, MCV 85.4, MCH 27.3, MCHC 32.0, RDW Std Deviation 42.6, RDW Coeff of Parmjit 13.8, Plt Count 209, MPV 9.5, Immature Gran % (Auto) 4.200 H, Neut % (Auto) 79.4 H, Lymph % (Auto) 9.3 L, Mayes % (Auto) 5.8, Eos % (Auto) 1.0, Baso % (Auto) 0.3, Absolute Neuts (auto) 9.5 H, Absolute Lymphs (auto) 1.11, Nucleated RBC % 0 07/29/19 06:00: Sodium 135 L, Potassium 3.9, Chloride 103, Carbon Dioxide 25.0, Anion Gap 7, BUN 11, Creatinine 0.64, Estim Creat Clear Calc 88.60, Est GFR (MDRD) Af Amer 121, Est GFR (MDRD) Non-Af 100, BUN/Creatinine Ratio 17.1, Glucose 152 H, Calcium 8.4 L, Total Bilirubin 1.00, AST 16, ALT 22, Alkaline Phosphatase 60, Total Protein 6.3 L, Albumin 2.2 L, Globulin 4.1, Albumin/Globulin Ratio 0.5 L Current Medications Acetaminophen (Tylenol) 650 mg PO Q6H PRN PRN PRN Reason: Pain Score 1-10/Temp > 100.7 F Al Hydroxide/Mg Hydroxide (Mylanta Ii) 30 ml PO Q6H PRN PRN PRN Reason: Gastric Burning Albuterol Sulfate (Proair Hfa (Sp) Surgery/Vent Pts) 4 - 8 puff INHALATION Q4H PRN PRN PRN Reason: Dyspnea, wheezing Amitriptyline HCl (Elavil) 75 mg PO QHS [facility] Last Admin: 07/28/19 21:14 Dose: 75 mg Documented by: Dextrose (D50w Syringe) 0 gm IV X1 PRN; Protocol PRN Reason: Hypoglycemia Enoxaparin Sodium (Lovenox) 40 mg SC DAILY [facility] Folic Acid (Folic Acid) 2 mg PO DAILY@0800 [facility] Glucagon () 1 mg IM .X1 PRN PRN Reason: Hypoglycemia Guaifenesin (Robitussin) 20 ml PO Q4H PRN PRN PRN Reason: COUGH Hydralazine HCl (Apresoline Iv) 10 mg IV Q4H PRN PRN PRN Reason: SBP > 160 Hydromorphone HCl (Dilaudid Inj) 0.5 mg IV Q4H PRN PRN PRN Reason: Pain Score 6-10/10 Last Admin: 07/28/19 21:14 Dose: 0.5 mg Documented by: Sodium Chloride () 1,000 mls @ 100 mls/hr IV .Q10H [facility] Last Admin: 07/29/19 05:57 Dose: 100 mls/hr Documented by: Vancomycin IV Pharmacy to Dose (1 ea/ Sodium Chloride) 500 mls @ 250 mls/hr IV X1 PRN; Protocol PRN Reason: Rx to Dose Piperacillin Sod/Tazobactam (Sod 3.375 gm/ Sodium Chloride) 50 mls @ 12.5 mls/hr IV Q8 [facility] Last Admin: 07/29/19 05:58 Dose: 12.5 mls/hr Documented by: Vancomycin HCl 1,250 mg/ (Sodium Chloride) 275 mls @ 167 mls/hr IV Q12H [facility] Last Admin: 07/29/19 06:01 Dose: 167 mls/hr Documented by: Insulin Human Lispro (Humalog Kwikpen (Bkc)) 0 unit SC ACHS [facility]; Protocol Last Admin: 07/29/19 06:14 Dose: Not Given Documented by: Lisinopril (Zestril) 10 mg PO QHS [facility] Last Admin: 07/28/19 21:14 Dose: 10 mg Documented by: Magnesium Hydroxide (Milk Of Magnesia) 30 ml PO DAILY PRN PRN PRN Reason: Constipation Nitroglycerin (Nitrostat) 0.4 mg SUBLINGUAL Q5M PRN PRN Reason: CARDIAC/CHEST PAIN Ondansetron HCl (Zofran) 4 mg IV Q8H PRN PRN PRN Reason: NAUSEA/VOMITING Oxycodone HCl (Oxyir) 5 mg PO Q4H PRN PRN PRN Reason: Pain Score 4-5/10 Last Admin: 07/29/19 02:26 Dose: 5 mg Documented by: Pantoprazole Sodium (Protonix) 40 mg PO DAILY [facility] Pravastatin Sodium (Pravachol) 20 mg PO QHS [facility] Last Admin: 07/28/19 21:14 Dose: 20 mg Documented by: Prochlorperazine Edisylate (Compazine Iv) 5 mg IV Q4H PRN PRN PRN Reason: Breakthrough Nausea/Vomiting Psyllium Hydrophilic Mucilloid (Metamucil) 1 packet PO DAILY PRN PRN PRN Reason: Constipation Senna/Docusate Sodium (Senokot-S, Yane-Colace) 2 tablet PO BID PRN PRN PRN Reason: Constipation Sodium Chloride () 10 - 40 ml IV UD PRN PRN Reason: SALINE FLUSH Temazepam (Restoril) 15 mg PO QHS PRN PRN PRN Reason: INSOMNIA Throat Lozenges (Cepacol Sore Throat Lozenge) 1 lozenge MUCOUS MEM Q2H PRN PRN PRN Reason: SORE THROAT STROKE Vital Signs/Narrative: Vital Signs Temp Pulse Resp BP Pulse Ox 07/29/19 06:07 99.4 F H 95 22 H 106/74 95 07/29/19 04:02 92 Medical Necessity - Tobacco Use Smoking Status: Former smoker Tobacco Use: Non-smoker, Secondhand Assessment/Plan All Active Problems (Last Reviewed 07/08/19 @ 11:42 by Shireen Schilling) Severe sepsis (Acute) Pneumonia (Acute) Contusion of right hip, initial encounter (Acute) Low back strain (Acute) The patient is a 58 y/o F w/ PMHx: Diabetes mellitus type II, GERD w/ Hx gastric ulcer, Chronic back pain, HTN, HLD, Anxiety and Depression, Obesity, Fibromyalgia, Psoriatic arthritis and Rheumatoid arthritis, Crohn's Disease on remicade with last dose 06/16/29 who presents to the [facility] ED on 07/28/19 with several weeks of worsening myalgias, severe sore throat, ongoing cough productive of thick white sputum, dyspnea, no specific fevers but significant night sweats and worsening right-sided pleuritic chest pain with administration of 2 antibiotic rounds including Z-Jorden and 3 bursts of prednisone therapy without improvement with now worsening dyspnea. 1. Acute Severe Sepsis secondary to Acute Dyspnea, Cough, Pleuritic Chest pain, Fever with RLL Pneumonia secondary to suspected CAP, however, possible Acute Viral Syndrome, COVID-19: Patient with mild leukocytosis with left shift however with concurrent lymphopenia, CTPA with a small right pleural effusion and right lower lobe infiltrate with increased markings also at the left lung base suggestive of atelectasis, lactic acid 2.5. Patient admitted to the COVID unit, continued PCU status, maintain on oxygen with wean as tolerated to room air, continue MDI inhaler PRN albuterol, maintain on IV zosyn and vancomycin with negative MRSA screen therefore discontinuation on 07/29/2019, maintain HOB, IS parameters w/ pending sputum cultures, negative urine antigens, negative respiratory viral panel, pending COVID test, initial lactic acid 2.5 with repeat 1.2, magnesium 1.5 with supplementation ordered, ferritin 3 8, LDH 307, CRP 126, procalcitonin 0.08. Repeat 07/29/2019 chest x-ray with increased density right lower lobe and left lower lobe atelectasis will continue supportive care including q 2 hour turning including prone given no prone bed availability and judicious hydration, closely monitor for worsening status for ARDS and multiorgan failure. If patient worsens with need for oxygen >6 L would plan intubation with ICU physician continued care. Bld cx x 2 obtained in the ED. D- dimer 7.27, therefore will add therapeutic Lovenox. Given renal function appropriate, will obtain CTPA to avoid prolonged unneeded anticoagulation if the case. 2. Rheumatoid arthritis, psoriatic arthritis, history of Crohn's disease: Patient with last Remicade regimen administered on 06/16/1929, continue to hold. Serial rounds of prednisone specifically 3 recently without improvement in #1. Continue folic acid. 3. Anxiety and depression: Not on regimen, encourage continued outpatient follow-up with therapy as needed. 4. Diabetes mellitus type II: Hold oral home regimen, ADA diet, accu checks w/ ISS. 5. Hypertension: Continue home regimen including lisinopril, PRN hydralazine. 6. Hyperlipidemia: Continue home statin regimen. 7. Obesity: Weight loss and lifestyle changes encouraged. 8. GERD with history of gastric ulcer: Maintain on PPI. 9. DVT prophylaxis: SCDs, Lovenox. 10. CODE status: Full Code. Inpatient E&M: 65599 Subs Hosp L3
[2019-07-29] MEDS: Enoxaparin 40 MG/0.4 ML Syringe SC (09:08)
[2019-07-29] MEDS: Pantoprazole Sodium 40 MG Tablet PO (09:09)
[2019-07-29] MEDS: Folic Acid 1 MG Tablet 2 MG PO (09:09)
--- NOTE | 2019-07-29 10:40 | CASEMGMT ---
RN CM Assessment Note Presentation: Severe Sepsis, Pneumonia. COVID-19 testing pending. Intro role of CM and purpose of RN CM assessment to patient via phone to ICU room. Demographics, PCP and Pharmacy verified. Pt states she lives independently with her , son and grandson. -Discussed isolation at home if recommended due to COVID results pending or positive on dc. Pt states she can isolate somewhat at home, but her family has been in home this whole time. Grandson has not been in home, is coming this evening until Thursday anusha. Family can assist with food, prescriptions at home. PCP: Dr. Null Specialists: none Preferred Pharmacy: [facility] Insurance: [employer] Prescription Benefit: yes LNOK : , [employer] Living Arrangements: Lives independently. No care needs identified Transportation: Drives or family can assist. DME: has walker, cane but does not use. No oxygen use prior to admission. Pt is on 2L NC currently and is 95% RA. HHC: none Patient DC goals: home DC PLAN: Home. No needs identified @ this time. RN CM advised to contact cm for any concerns/needs that may arise. Sami DOTSON RN ACM.
[2019-07-29 11:06] LABS: Bedside Glucose 139 mg/dL (70-110)
--- NOTE | 2019-07-29 13:08 | NURSING ---
Attempted to update on transfer to Med-Surg 2. No answer.
[2019-07-29 14:38] LABS: D-Dimer Quantitative (DVT/PE) 7.27 FEU/ug/m (0.27-0.49)
[2019-07-29 14:41] LABS: Bedside Glucose 142 mg/dL (70-110)
[2019-07-29] MEDS: Famotidine 200 MG/20 ML MDV 20 MG in 0.9% Normal Saline (Pres. free 8 ML 300 MG IV ×2 (16:33→22:24)
[2019-07-29] MEDS: DiphenhydrAMINE 50 MG/ML Syringe IV ×2 (16:34→22:54)
[2019-07-29] MEDS: Enoxaparin 60 MG/0.6 ML Syringe 50 MG SC (16:37)
[2019-07-29 17:10] LABS: Bedside Glucose 142 mg/dL (70-110)
[2019-07-29] MEDS: Lisinopril 10 MG Tablet PO (22:24)
[2019-07-29] MEDS: Enoxaparin 100 MG/ML Syringe 90 MG SC (22:24)
[2019-07-29] MEDS: 0.9% Saline Lock 10 ML Syringe IV (22:24)
[2019-07-29] MEDS: Amitriptyline 25 MG Tablet 75 MG PO (22:24)
[2019-07-29] MEDS: Pravastatin 20 MG Tablet PO (22:25)
[2019-07-29 23:05] LABS: Bedside Glucose 293 mg/dL (70-110)
[2019-07-30] VITALS (10 sets, daily range): BP systolic 123–151; BP diastolic 49–81; PULSE 82–102; RESP 17–20; TEMP 36.6–37.2; O2SAT 92–99
[2019-07-30] MEDS: oxyCODONE 5 MG Tablet PO ×3 (04:40→23:27)
[2019-07-30] MEDS: Insulin Lispro 100 UNIT/ML INSULN.PEN SC ×3 (06:11→23:45)
[2019-07-30 06:56] LABS: Bedside Glucose 250 mg/dL (70-110)
[2019-07-30 06:59] LABS: Absolute Lymphocyte Count 0.58 X10^3/uL (0.83-4.51); Absolute Neutrophil Count 6.7 X10^3/uL (2.0-7.7); Basophil# 0.01 X10^3/uL; Basophil% 0.1 % (0-1); Eosinophil# 0.01 X10^3/uL; Eosinophils% 0.1 % (0-5); Hematocrit 31.8 % (37-47); Hemoglobin 10.1 g/dL (12.0-15.0); Lymphocyte # 0.58 X10^3/ul (4.0); Lymphocyte % 7.5 % (19-41); Mean Corp Hgb Conc 31.8 g/dL (32-36); Mean Corpuscular Hgb 26.5 pg (27.0-32.0); Mean Corpuscular Volume 83.5 fL (81-99); Mean Platelet Vol. 9.9 fl (6.2-12.0); Monocyte# 0.29 X10^3/uL; Monocyte% 3.7 % (0-10); NRBC Flagged by Analyzer 0 % (0-5); Neutrophil # 6.66 X10^3/uL (2.7-7.7); Neutrophil % 85.8 % (47-70); POSITIVE DIFFERENTIAL YES; Platelet Count 207 K/mm3 (150-450); RBC Distribution Width CV 13.4 % (11.6-14.6); RBC Distribution Width SD 40.9 fl (35.1-43.9); Red Blood Count 3.81 M/mm3 (4.2-5.4); White Blood Count 7.8 K/mm3 (4.4-11.0)
[2019-07-30 07:03] LABS: Differential Indicated SCAN CRITERIA MET
[2019-07-30 07:21] LABS: Differential Comment SCANNED
[2019-07-30 07:24] LABS: D-Dimer Quantitative (DVT/PE) 7.25 FEU/ug/m (0.27-0.49)
[2019-07-30 07:26] LABS: ALB/GLOB Ratio 0.5 RATIO (0.9-2.4); AST(SGOT) 16 U/L (15-37); Alanine Aminotransfer ALT/SGPT 26 U/L (13-56); Albumin, Serum 2.2 g/dL (3.2-5.0); Alkaline Phosphatase 70 U/L (45-117); Anion Gap 6 (5-15); BUN 12 mg/dL (7-18); Calcium,Total 8.9 mg/dL (8.5-10.1); Chloride 108 mmol/L (98-107); EST Glomerular Filtration Rate 109 mL/min (>60); Est Glom Filt Rate - Afr Amer 132 mL/min (>60); Estimated Creatinine Clearance 94.51 ml/min; Globulin 4.4 g/dL (2.2-4.2); Glucose 255 mg/dL (74-106); Magnesium 1.8 mg/dL (1.6-2.6); Potassium 4.1 mmol/L (3.5-5.1); Protein, Total 6.6 g/dL (6.4-8.2); Sodium Level 139 mmol/L (136-145)
--- NOTE | 2019-07-30 07:55 | PCM.PN.HOSP ---
Patient Problems: Active and Suspected Problems (Last Reviewed 07/08/19 @ 11:42 by Shireen Schilling) Severe sepsis (Acute) Pneumonia (Acute) Subjective: Patient with ongoing right-sided significant pleuritic discomfort, worse with inspiratory effort and with activity. Patient requesting additional regimen for treatment. She notes initially it had seemed to improve but worsened again through the evening and into the a.m. today. She notes ongoing cough although lessened. She notes dyspnea has improved. Discussed current plan of care which included continued antibiotic therapy, discussion of elevated d-dimer with negative CTPA with plan to obtain bilateral lower extremity duplex ultrasounds and if unremarkable consider de-escalation off anticoagulant therapy especially if COVID negative. Noted vital signs and labs stable, improved. She denies any nausea, emesis, abdominal pain, diarrhea, worsening myalgias. Objective: Physical Examination: General: awake, alert, oriented x 3 and cooperative, seated upright in the MS bed, fatigued appearing, NAD, hoarse voice. Skin: normal color, turgor, no icterus, cyanosis. HEENT: AT/NC, EOMI, PERRLA, MMM. Lungs: Diminished BS BL, > bases, improved effort, but still decreased secondary to R sided pleuritic chest pain, no rales, ronchi or wheezing. Heart: Regular rate and regular rhythm; no gallop, rub audible. Abdomen: soft, obese, NTTP, ND, normal BS. Extremities: no cyanosis, clubbing, or edema, no pain to palpation BL LE. Neurological: patient awake, alert, oriented x 3; cognitive function appears baseline intact; pupils equally reactive to light and accomodation; cranial nerves II-XII grossly normal, moving all 4 extremities, no focal deficits, strength improved, moderately globally decreased. Psychiatric: affect appears fatigued, but improved, no acute evidence of depressive or anxiety feelings. Vitals/I&O's: Vital Signs Temp Pulse Resp BP Pulse Ox 98.9 F 87 17 126/63 H 97 07/30/19 03:30 07/30/19 07:38 07/30/19 03:30 07/30/19 03:30 07/30/19 03:30 Oxygen Flow Rate (L/min) 2 Oxygen Delivery Method Room Air Weight: 190 lb 0.016 oz Body Mass Index (BMI) 30.7 Finger Stick Blood Glucose 149 Intake and Output for Last 24 Hours 07/28/19 07/29/19 07/30/19 23:59 23:59 23:59 Intake Total 1979 4126.56 / 4126.56 707.50 / 707.50 Output Total 300 / 550 550 / 550 Balance 1680 / 1490 3576.56 / 3576.56 707.50 / 707.50 Microbiology Past 72 Hours 07/28/19 21:00 Sputum, Expectorated/Coughed Gram Stain - Final 07/28/19 21:00 Sputum, Expectorated/Coughed Respiratory Culture - Preliminary Alpha Hemolytic Streptococcus 07/28/19 12:45 Urine, Clean Catch Urine Culture - Preliminary Mixed Gram Positive Organisms 07/28/19 18:00 Urine, Clean Catch Legionella Antigen - Final 07/28/19 18:00 Urine, Clean Catch Streptococcus pneumoniae Antigen (M - Final 07/28/19 11:40 Mucosa - Nose Respiratory Panel (PCR) - Final Laboratory Results 07/28/19 11:40: COVID-19 (ARNOLDO) Pending 07/29/19 06:13: POC Glucose 139 H 07/29/19 13:45: D-Dimer Quant (PE/DVT) 7.27 H* 07/29/19 14:12: POC Glucose 142 H 07/29/19 16:32: POC Glucose 142 H 07/29/19 22:10: POC Glucose 293 H 07/30/19 06:05: POC Glucose 250 H 07/30/19 06:20: WBC 7.8, RBC 3.81 L, Hgb 10.1 L, Hct 31.8 L, MCV 83.5, MCH 26.5 L, MCHC 31.8 L, RDW Std Deviation 40.9, RDW Coeff of Parmjit 13.4, Plt Count 207, MPV 9.9, Immature Gran % (Auto) 2.800 H, Neut % (Auto) 85.8 H, Lymph % (Auto) 7.5 L, [place] % (Auto) 3.7, Eos % (Auto) 0.1, Baso % (Auto) 0.1, Absolute Neuts (auto) 6.7, Absolute Lymphs (auto) 0.58 L, Nucleated RBC % 0, Differential Comment SCANNED 07/30/19 06:20: Sodium 139, Potassium 4.1, Chloride 108 H, Carbon Dioxide 25.0, Anion Gap 6, BUN 12, Creatinine 0.60, Estim Creat Clear Calc 94.51, Est GFR (MDRD) Af Amer 132, Est GFR (MDRD) Non-Af 109, BUN/Creatinine Ratio 20.0, Glucose 255 H, Calcium 8.9, Magnesium 1.8, Total Bilirubin 0.50, AST 16, ALT 26, Alkaline Phosphatase 70, Total Protein 6.6, Albumin 2.2 L, Globulin 4.4 H, Albumin/Globulin Ratio 0.5 L 07/30/19 06:20: D-Dimer Quant (PE/DVT) 7.25 H* Current Medications Acetaminophen (Tylenol) 650 mg PO Q6H PRN PRN PRN Reason: Pain Score 1-10/Temp > 100.7 F Al Hydroxide/Mg Hydroxide (Mylanta Ii) 30 ml PO Q6H PRN PRN PRN Reason: Gastric Burning Albuterol Sulfate (Proair Hfa (Sp) Surgery/Vent Pts) 4 - 8 puff INHALATION Q4H PRN PRN PRN Reason: Dyspnea, wheezing Amitriptyline HCl (Elavil) 75 mg PO QHS [facility] Last Admin: 07/29/19 22:24 Dose: 75 mg Documented by: Dextrose (D50w Syringe) 0 gm IV X1 PRN; Protocol PRN Reason: Hypoglycemia Diphenhydramine HCl (Benadryl) 50 mg IV Q8H [facility] Last Admin: 07/29/19 22:54 Dose: 50 mg Documented by: Enoxaparin Sodium (Lovenox) 90 mg SC Q12 [facility] Last Admin: 07/29/19 22:24 Dose: 90 mg Documented by: Folic Acid (Folic Acid) 2 mg PO DAILY@0800 [facility] Last Admin: 07/29/19 09:09 Dose: 2 mg Documented by: Glucagon () 1 mg IM .X1 PRN PRN Reason: Hypoglycemia Guaifenesin (Robitussin) 20 ml PO Q4H PRN PRN PRN Reason: COUGH Hydralazine HCl (Apresoline Iv) 10 mg IV Q4H PRN PRN PRN Reason: SBP > 160 Hydromorphone HCl (Dilaudid Inj) 0.5 mg IV Q4H PRN PRN PRN Reason: Pain Score 6-10/10 Last Admin: 07/28/19 21:14 Dose: 0.5 mg Documented by: Sodium Chloride () 1,000 mls @ 100 mls/hr IV .Q10H [facility] Last Infusion: 07/30/19 06:00 Dose: 100 mls/hr Documented by: Piperacillin Sod/Tazobactam (Sod 3.375 gm/ Sodium Chloride) 50 mls @ 12.5 mls/hr IV Q8 [facility] Last Admin: 07/30/19 06:10 Dose: 12.5 mls/hr Documented by: Famotidine 20 mg/ Sodium (Chloride) 10 mls @ 300 mls/hr IV Q12 [facility] Last Infusion: 07/29/19 22:26 Dose: Infused Documented by: Insulin Human Lispro (Humalog Kwikpen (Bkc)) 0 unit SC [facility]; Protocol Last Admin: 07/30/19 06:11 Dose: 3 u Documented by: Lisinopril (Zestril) 10 mg PO QHS [facility] Last Admin: 07/29/19 22:24 Dose: 10 mg Documented by: Magnesium Hydroxide (Milk Of Magnesia) 30 ml PO DAILY PRN PRN PRN Reason: Constipation Methylprednisolone (Solu-Medrol) 40 mg IV Q8 [facility] Last Admin: 07/30/19 06:09 Dose: 40 mg Documented by: Nitroglycerin (Nitrostat) 0.4 mg SUBLINGUAL Q5M PRN PRN Reason: CARDIAC/CHEST PAIN Ondansetron HCl (Zofran) 4 mg IV Q8H PRN PRN PRN Reason: NAUSEA/VOMITING Oxycodone HCl (Oxyir) 5 mg PO Q4H PRN PRN PRN Reason: Pain Score 4-5/10 Last Admin: 07/30/19 04:40 Dose: 5 mg Documented by: Pravastatin Sodium (Pravachol) 20 mg PO QHS [facility] Last Admin: 07/29/19 22:25 Dose: 20 mg Documented by: Prochlorperazine Edisylate (Compazine Iv) 5 mg IV Q4H PRN PRN PRN Reason: Breakthrough Nausea/Vomiting Psyllium Hydrophilic Mucilloid (Metamucil) 1 packet PO DAILY PRN PRN PRN Reason: Constipation Senna/Docusate Sodium (Senokot-S, Yane-Colace) 2 tablet PO BID PRN PRN PRN Reason: Constipation Sodium Chloride () 10 - 40 ml IV UD PRN PRN Reason: SALINE FLUSH Last Admin: 07/29/19 22:24 Dose: 10 ml Documented by: Temazepam (Restoril) 15 mg PO QHS PRN PRN PRN Reason: INSOMNIA Throat Lozenges (Cepacol Sore Throat Lozenge) 1 lozenge MUCOUS MEM Q2H PRN PRN PRN Reason: SORE THROAT STROKE Vital Signs/Narrative: Vital Signs Pulse 07/30/19 07:38 87 Medical Necessity - Tobacco Use Smoking Status: Former smoker Tobacco Use: Non-smoker, Secondhand Assessment/Plan All Active Problems (Last Reviewed 07/08/19 @ 11:42 by Shireen Schilling) Severe sepsis (Acute) Pneumonia (Acute) Contusion of right hip, initial encounter (Acute) Low back strain (Acute) The patient is a 58 y/o F w/ PMHx: Diabetes mellitus type II, GERD w/ Hx gastric ulcer, Chronic back pain, HTN, HLD, Anxiety and Depression, Obesity, Fibromyalgia, Psoriatic arthritis and Rheumatoid arthritis, Crohn's Disease on remicade with last dose 06/16/29 who presents to the [facility] ED on 07/28/19 with several weeks of worsening myalgias, severe sore throat, ongoing cough productive of thick white sputum, dyspnea, no specific fevers but significant night sweats and worsening right-sided pleuritic chest pain with administration of 2 antibiotic rounds including Z-Jorden and 3 bursts of prednisone therapy without improvement with now worsening dyspnea. 1. Acute Severe Sepsis secondary to Acute Dyspnea, Cough, Pleuritic Chest pain, Fever with RLL Pneumonia secondary to suspected CAP, however, possible Acute Viral Syndrome, COVID-19: Patient with mild leukocytosis with left shift however with concurrent lymphopenia, CTPA with a small right pleural effusion and right lower lobe infiltrate with increased markings also at the left lung base suggestive of atelectasis, lactic acid 2.5. Patient admitted to the COVID unit, continued PCU status, maintain on oxygen with wean as tolerated to room air, continue MDI inhaler PRN albuterol, maintained on IV zosyn and vancomycin with negative MRSA screen therefore discontinuation vancomycin 07/29/2019, maintain HOB, IS parameters w/ pending sputum cultures, negative urine antigens, negative respiratory viral panel, pending COVID test, initial lactic acid 2.5 with repeat 1.2, magnesium 1.5 with supplementation ordered, ferritin 3 8, LDH 307, CRP 126, procalcitonin 0.08. Repeat 07/29/2019 chest x-ray with increased density right lower lobe and left lower lobe atelectasis. Per Allison recommendation we will continue therapeutic Lovenox pending COVID lab as patient is high risk for VTE in the setting w/ D-dimer 7.27. BL LE duplex US pending given negative CTPA at admission, if negative would consider discontinuation especially if COVID negative. Given ongoing severe pleuritic chest pain, continue current treatments as noted, possible discharge 07/31/19 if improving. 2. Rheumatoid arthritis, psoriatic arthritis, history of Crohn's disease: Patient with last Remicade regimen administered on 06/16/1929, continue to hold. Serial rounds of prednisone specifically 3 recently without improvement in #1. Continue folic acid. Notes possibly constipation, PRN bowel regimen available. 3. Anxiety and depression: Not on regimen, encourage continued outpatient follow-up with therapy as needed. 4. Diabetes mellitus type II: Hold oral home regimen, ADA diet, accu checks w/ ISS. 5. Hypertension: Continue home regimen including lisinopril, PRN hydralazine. 6. Hyperlipidemia: Continue home statin regimen. 7. Obesity: Weight loss and lifestyle changes encouraged. 8. GERD with history of gastric ulcer: Maintain on PPI. 9. DVT prophylaxis: SCDs, Lovenox. 10. CODE status: Full Code. Inpatient E&M: 28644 Subs Hosp L2
[2019-07-30] MEDS: Folic Acid 1 MG Tablet 2 MG PO (09:07)
[2019-07-30] MEDS: DiphenhydrAMINE 50 MG/ML Syringe IV (09:07)
[2019-07-30] MEDS: 0.9% Saline Lock 10 ML Syringe IV ×2 (09:09→11:50)
[2019-07-30] MEDS: Famotidine 200 MG/20 ML MDV 20 MG in 0.9% Normal Saline (Pres. free 8 ML 300 MG IV (09:09)
[2019-07-30] MEDS: Enoxaparin 100 MG/ML Syringe 90 MG SC ×2 (09:10→23:26)
[2019-07-30] MEDS: 0.9% Normal Saline 1,000 ML 100 ML IV ×2 (09:10→17:00)
--- NOTE | 2019-07-30 10:25 | VDLE_ITS ---
Reason For Study: Elevated D-dimer RIGHT LEFT Right CFV, SFJ, FV and PopV are compressible. Left CFV, SFJ, FV and PopV are compressible. T/P Trunk is compressible. T/P Trunk is compressible. PTV is compressible. LT PerV is compressible. RT PerV is compressible. Acute deep vein thrombosis is noted in the Procedure left posterior tibial vein. Exam performed portable in patient room. The exam was abbreviated due to the COVID 19 protocol. A preliminary report was called and/or faxed to [facility]. Interpretation Summary Acute deep vein thrombosis is noted in the left posterior tibial vein. The remainder of the left lower extremity deep venous system is patent and compressible. Deep veins of the right lower extremity are patent and compressible segmentally. There is no evidence of right lower extremity deep vein thrombosis. An abbreviated Covid-19 protocol was performed. Ordering Physician: Camilla Mello Referring Physician: Zach Null M.D. Performed By: Tracie Damico RVT
[2019-07-30] MEDS: Ketorolac 30 MG/ML Syringe IV ×2 (11:50→16:59)
[2019-07-30 13:21] LABS: Bedside Glucose 249 mg/dL (70-110)
--- NOTE | 2019-07-30 14:29 | CASEMGMT ---
Pt to be sent home on oral anti-coag at discharge and per pharmacist at [facility], Xarelto and Eliquis co-pay are the same for pt at this time at $40, but they do not have Eliquis in stock. Dr. Mello aware and states pt to be discharged on Xarelto. She states she will void eliquis at this time. Adis RICKETTS CM
[2019-07-30 17:26] LABS: Bedside Glucose 146 mg/dL (70-110)
[2019-07-30] MEDS: Pravastatin 20 MG Tablet PO (23:26)
[2019-07-30] MEDS: Lisinopril 10 MG Tablet PO (23:26)
[2019-07-30] MEDS: Pantoprazole Sodium 20 MG Tablet PO (23:37)
[2019-07-31 01:06] LABS: Bedside Glucose 189 mg/dL (70-110)
[2019-07-31 01:30] VITALS: RESP 20
[2019-07-31] MEDS: Ketorolac 30 MG/ML Syringe IV (01:34)
[2019-07-31] MEDS: 0.9% Saline Lock 10 ML Syringe IV (01:40)
[2019-07-31] MEDS: 0.9% Normal Saline 1,000 ML 100 ML IV (04:56)
[2019-07-31 05:45] VITALS: BP 133/74; PULSE 92; RESP 20; TEMP 36.8; O2SAT 95
[2019-07-31 06:33] LABS: Absolute Lymphocyte Count 1.62 X10^3/uL (0.83-4.51); Absolute Neutrophil Count 5.8 X10^3/uL (2.0-7.7); Basophil# 0.04 X10^3/uL; Basophil% 0.5 % (0-1); Eosinophils% 1.2 % (0-5); Hematocrit 32.9 % (37-47); Hemoglobin 10.3 g/dL (12.0-15.0); Lymphocyte # 1.62 X10^3/ul (4.0); Lymphocyte % 19.8 % (19-41); Mean Corp Hgb Conc 31.3 g/dL (32-36); Mean Corpuscular Hgb 26.3 pg (27.0-32.0); Mean Corpuscular Volume 84.1 fL (81-99); Mean Platelet Vol. 9.7 fl (6.2-12.0); Monocyte# 0.39 X10^3/uL; Monocyte% 4.8 % (0-10); NRBC Flagged by Analyzer 0 % (0-5); Neutrophil # 5.84 X10^3/uL (2.7-7.7); Neutrophil % 71.3 % (47-70); Platelet Count 253 K/mm3 (150-450); RBC Distribution Width CV 13.6 % (11.6-14.6); RBC Distribution Width SD 41.8 fl (35.1-43.9); Red Blood Count 3.91 M/mm3 (4.2-5.4); White Blood Count 8.2 K/mm3 (4.4-11.0)
[2019-07-31 06:49] LABS: ALB/GLOB Ratio 0.5 RATIO (0.9-2.4); AST(SGOT) 32 U/L (15-37); Alanine Aminotransfer ALT/SGPT 41 U/L (13-56); Albumin, Serum 2.1 g/dL (3.2-5.0); Alkaline Phosphatase 65 U/L (45-117); Anion Gap 7 (5-15); BUN 17 mg/dL (7-18); BUN/Creat Ratio 25.1 RATIO (10-20); Calcium,Total 8.4 mg/dL (8.5-10.1); Chloride 108 mmol/L (98-107); Creatinine, Serum 0.68 mg/dL (0.55-1.02); EST Glomerular Filtration Rate 95 mL/min (>60); Est Glom Filt Rate - Afr Amer 114 mL/min (>60); Estimated Creatinine Clearance 83.39 ml/min; Glucose 124 mg/dL (74-106); Potassium 3.7 mmol/L (3.5-5.1); Protein, Total 6.1 g/dL (6.4-8.2); Sodium Level 139 mmol/L (136-145)
[2019-07-31 07:06] LABS: Bedside Glucose 125 mg/dL (70-110)
--- NOTE | 2019-07-31 07:45 | PCM.DC ---
- Discharge Diagnoses Current Active Problems: Current Active and Chronic Problems (Last Reviewed 07/08/19 @ 11:42 by Shireen Schilling) 1. Acute Severe Sepsis secondary to RLL Pneumonia, RULED OUT Acute Viral Syndrome, COVID-19 2. Rheumatoid arthritis, psoriatic arthritis, history of Crohn's disease 3. Anxiety and depression 4. Diabetes mellitus type II 5. Hypertension 6. Hyperlipidemia 7. Obesity 8. GERD with history of gastric ulcer You will use the following diet at home:: Cardiac Your food should be the consistency of: Regular Your liquids should be the consistency of: Regular/Thin Discharge Activity: - - Encourage routine activity but avoid aggressive activity until cleared per your primary care physician at follow-up. May resume sexual activity in: 1-2 weeks Weight Bearing Status: Weight bearing as tolerated Call your doctor if you observe: Fever of 101 or Higher, Inability to urinate, Inability to have a bowel movement, Shortness of breath, Dizziness, Fainting spells, Chest pain, Uncontrolled pain Instructions: What Is Pneumonia?, Treating Pneumonia, Preventing Pneumonia Allergies/Adverse Reactions: Allergies dyclonine Allergy (Verified 07/28/19 11:21) Rash Sulfa (Sulfonamide Antibiotics) Allergy (Verified 07/28/19 11:21) Rash adhesive tape Adverse Reaction (Verified 07/28/19 11:21) Itching magnesium Adverse Reaction (Verified 07/30/19 10:34) Angioedema Medications to take at Discharge Amitriptyline HCl 100 mg PO QHS 06/04/17 Folic Acid 2 mg PO DAILY@0800 06/04/17 Lisinopril [Zestril] 10 mg PO QHS 06/04/17 Acetaminophen [Tylenol] 1,500 mg PO DAILY PRN PRN 07/28/19 Glipizide [Glipizide ER] 5 mg PO DAILY 07/28/19 Infliximab [Remicade] 1 dose IV X1 07/28/19 Metformin HCl [Metformin HCl ER] 500 mg PO DAILY 07/28/19 Omeprazole 40 mg PO DAILY 07/28/19 Pravastatin [Pravachol] 20 mg PO QHS 07/28/19 Rivaroxaban [Xarelto] 1 ea PO UD #1 tab.ds.pk 07/30/19 Albuterol IH (ProAir) [Proair Hfa] 4 - 8 puff INHALATION Q4H PRN PRN #1 inhaler 07/31/19 Levofloxacin [Levaquin] 750 mg PO DAILY #4 tab 07/31/19 Oxycodone [Oxyir] 5 mg PO Q4H PRN PRN 5 Days #20 tablet 07/31/19 The following prescriptions were given: Levofloxacin [Levaquin] 750 mg PO DAILY #4 tab Transmission Status: Pending to [facility] #30 Oxycodone [Oxyir] 5 mg PO Q4H PRN PRN 5 Days #20 tablet PRN Reason: pain -01/13 Transmission Status: Sent to [facility] #30 Albuterol IH (ProAir) [Proair Hfa] 4 - 8 puff INHALATION Q4H PRN PRN #1 inhaler PRN Reason: Dyspnea, wheezing Transmission Status: Pending to [facility] #30 Rivaroxaban [Xarelto] 1 ea PO UD #1 tab.ds.pk Transmission Status: Received by [facility] #30 Primary Care Physician: Zach Null MD [Primary Care Provider] - Please follow up with your Primary Care Physician in: Follow-up within 3-5 days to review admission. Test Results: Test results from this visit will be discussed in further detail at your follow-up appointment, if applicable. Proposed Discharge Date: 07/31/19
--- NOTE | 2019-07-31 07:48 | PCM.DC.SUM ---
Discharge Date and Diagnosis - Problem List Patient Problems: Active and Suspected Problems (Last Reviewed 07/08/19 @ 11:42 by Shireen Schilling) Severe sepsis (Acute) Pneumonia (Acute) Date of Admission: 07/28/19 Date of Discharge: 07/31/19 - Primary Discharge Diagnosis Active and Suspected Problems (Last Reviewed 07/08/19 @ 11:42 by Shireen Schilling) 1. Acute Severe Sepsis secondary to RLL Pneumonia, RULED OUT Acute Viral Syndrome, COVID-19 2. Rheumatoid arthritis, psoriatic arthritis, history of Crohn's disease 3. Anxiety and depression 4. Diabetes mellitus type II 5. Hypertension 6. Hyperlipidemia 7. Obesity 8. GERD with history of gastric ulcer - Secondary Discharge Diagnosis Chronic Problems (Last Reviewed 07/08/19 @ 11:42 by Shireen Schilling) HLD (hyperlipidemia) (Chronic) Chronic back pain (Chronic) Fibromyalgia (Chronic) Psoriatic arthritis (Chronic) Rheumatoid arthritis (Chronic) GERD (gastroesophageal reflux disease) (Chronic) Hypertension (Chronic) Inflammatory bowel disease (Chronic) Crohn's Disease Type II diabetes mellitus (Chronic) Hospital Course and Treatment Operations: None Procedures: EKG Summary of Care Provided: The patient is a 58 y/o F w/ PMHx: Diabetes mellitus type II, GERD w/ Hx gastric ulcer, Chronic back pain, HTN, HLD, Anxiety and Depression, Obesity, Fibromyalgia, Psoriatic arthritis and Rheumatoid arthritis, Crohn's Disease on remicade with last dose 06/16/29 who presented to the [facility] ED on 07/28/19 with several weeks of worsening myalgias, severe sore throat, ongoing cough productive of thick white sputum, dyspnea, no specific fevers but significant night sweats and worsening right-sided pleuritic chest pain with administration of 2 antibiotic rounds including Z-Jorden and 3 bursts of prednisone therapy without improvement with now worsening dyspnea. Patient with mild leukocytosis with left shift however with concurrent lymphopenia, CTPA with a small right pleural effusion and right lower lobe infiltrate with increased markings also at the left lung base suggestive of atelectasis, lactic acid 2.5. Patient admitted to the COVID unit initially until ruled out (negative COVID 07/30/19), continued PCU status, maintained on oxygen with wean as tolerated to room air, continued MDI inhaler PRN albuterol, maintained initially on IV zosyn and vancomycin with negative MRSA screen therefore discontinuation vancomycin 07/29/2019, maintained HOB, IS parameters, negative urine antigens, negative respiratory viral panel, initial lactic acid 2.5 with repeat 1.2, magnesium 1.5 with supplementation ordered, ferritin 3 8, LDH 307, CRP 126, procalcitonin 0.08. Repeat 07/29/2019 chest x-ray with increased density right lower lobe and left lower lobe atelectasis. Per Allison recommendation we will continue therapeutic Lovenox pending COVID lab as patient is high risk for VTE in the setting w/ D-dimer 7.27 therefore anticoagulation started with initially therapeutic lovenox. CTPA as noted without PE, therefore obtained BL LE duplex US with noted + LLE PT clot. Oral options investigated and patient transitioned to xarelto oral regimen. Patient discharged in improved clinical condition with follow-up with primary care physician on completion antibiotics with Levaquin, PRN albuterol in addition to his Xarelto. DAY OF DISCHARGE PROGRESS NOTE: Subjective: Patient without acute event overnight per self and nursing report. Patient notes body aches but likely secondary to bed otherwise feeling improved, greater ease of breathing, less right-sided pleuritic pain. Patient denies fever, chills, nausea, emesis, abdominal pain, worsened chest pain or dyspnea. Patient agreeable to discharge to home. Patient will be discharged with follow-up with primary care physician within 3-5 days. Objective: T 98.2, heart 92, BP 133/74, respiratory rate 20, 95% on room air. Physical Examination: General: awake, alert, oriented x 3 and cooperative, seated upright in the bed, improved appearance, NAD. Skin: normal color, turgor, no icterus, cyanosis. HEENT: AT/NC, EOMI, PERRLA, MMM. Lungs: Diminished BS BL, > bases, improved effort, resolving R sided pleuritic chest pain, no rales, ronchi or wheezing. Heart: Regular rate and regular rhythm; no gallop, rub audible. Abdomen: soft, obese, NTTP, ND, normal BS. Extremities: no cyanosis, clubbing, or edema, no pain to palpation BL LE. Neurological: patient awake, alert, oriented x 3; cognitive function appears baseline intact; pupils equally reactive to light and accomodation; cranial nerves II-XII grossly normal, moving all 4 extremities, no focal deficits, strength improved, moderately globally decreased. Psychiatric: affect appears less fatigued, improving, no acute evidence of depressive or anxiety feelings. Assessment and Plan: Please see hospital summary above. Patient Problems: Active and Suspected Problems (Last Reviewed 07/08/19 @ 11:42 by Shireen Schilling) Severe sepsis (Acute) Pneumonia (Acute) - Physical Exam Vitals/I&O's: Vital Signs Temp Pulse Resp BP Pulse Ox 98.2 F 92 20 H 133/74 H 95 07/31/19 05:45 07/31/19 05:45 07/31/19 05:45 07/31/19 05:45 07/31/19 05:45 Oxygen Flow Rate (L/min) 2 Oxygen Delivery Method Room Air Weight: 190 lb 0.016 oz Body Mass Index (BMI) 30.7 Finger Stick Blood Glucose 149 Intake and Output for Last 24 Hours 07/29/19 07/30/19 07/31/19 23:59 23:59 23:59 Intake Total 4126.56 / 4126.56 3450.83 / 3450.83 1350 / 1350 Output Total 550 / 550 Balance 3576.56 / 3576.56 3450.83 / 3450.83 1350 / 1350 Microbiology Past 72 Hours 07/28/19 11:55 Blood Culture (Wb) - Right Forearm Blood Culture - Preliminary No growth in 48 hours. 07/28/19 11:35 Blood Culture (Wb) - Anticubital Right Blood Culture - Preliminary No growth in 48 hours. 07/28/19 21:00 Sputum, Expectorated/Coughed Gram Stain - Final 07/28/19 21:00 Sputum, Expectorated/Coughed Respiratory Culture - Preliminary 07/28/19 12:45 Urine, Clean Catch Urine Culture - Final Mixed Gram Positive Organisms 07/28/19 18:00 Urine, Clean Catch Legionella Antigen - Final 07/28/19 18:00 Urine, Clean Catch Streptococcus pneumoniae Antigen (M - Final 07/28/19 11:40 Mucosa - Nose Respiratory Panel (PCR) - Final Laboratory Results 07/28/19 11:40: COVID-19 (ARNOLDO) Not Detected 07/30/19 11:47: POC Glucose 249 H 07/30/19 16:57: POC Glucose 146 H 07/30/19 23:40: POC Glucose 189 H 07/31/19 05:48: WBC 8.2, RBC 3.91 L, Hgb 10.3 L, Hct 32.9 L, MCV 84.1, MCH 26.3 L, MCHC 31.3 L, RDW Std Deviation 41.8, RDW Coeff of Parmjit 13.6, Plt Count 253, MPV 9.7, Immature Gran % (Auto) 2.400 H, Neut % (Auto) 71.3 H, Lymph % (Auto) 19.8, Lake % (Auto) 4.8, Eos % (Auto) 1.2, Baso % (Auto) 0.5, Absolute Neuts (auto) 5.8, Absolute Lymphs (auto) 1.62, Nucleated RBC % 0 07/31/19 05:48: Sodium 139, Potassium 3.7, Chloride 108 H, Carbon Dioxide 24.0, Anion Gap 7, BUN 17, Creatinine 0.68, Estim Creat Clear Calc 83.39, Est GFR (MDRD) Af Amer 114, Est GFR (MDRD) Non-Af 95, BUN/Creatinine Ratio 25.1 H, Glucose 124 H, Calcium 8.4 L, Total Bilirubin 0.60, AST 32, ALT 41, Alkaline Phosphatase 65, Total Protein 6.1 L, Albumin 2.1 L, Globulin 4.0, Albumin/Globulin Ratio 0.5 L 07/31/19 05:48: D-Dimer Quant (PE/DVT) Pending 07/31/19 06:54: POC Glucose 125 H Current Medications Acetaminophen (Tylenol) 650 mg PO Q6H PRN PRN PRN Reason: Pain Score 1-10/Temp > 100.7 F Albuterol Sulfate (Proair Hfa (Sp) Surgery/Vent Pts) 4 - 8 puff INHALATION Q4H PRN PRN PRN Reason: Dyspnea, wheezing Amitriptyline HCl (Elavil) 75 mg PO QHS [facility] Last Admin: 07/30/19 23:25 Dose: Not Given Documented by: Dextrose (D50w Syringe) 0 gm IV X1 PRN; Protocol PRN Reason: Hypoglycemia Folic Acid (Folic Acid) 2 mg PO DAILY@0800 [facility] Last Admin: 07/30/19 09:07 Dose: 2 mg Documented by: Glucagon () 1 mg IM .X1 PRN PRN Reason: Hypoglycemia Guaifenesin (Robitussin) 20 ml PO Q4H PRN PRN PRN Reason: COUGH Hydralazine HCl (Apresoline Iv) 10 mg IV Q4H PRN PRN PRN Reason: SBP > 160 Hydromorphone HCl (Dilaudid Inj) 0.5 mg IV Q4H PRN PRN PRN Reason: Pain Score 6-10/10 Last Admin: 07/28/19 21:14 Dose: 0.5 mg Documented by: Sodium Chloride () 1,000 mls @ 100 mls/hr IV .Q10H [facility] Last Admin: 07/31/19 04:56 Dose: 100 mls/hr Documented by: Piperacillin Sod/Tazobactam (Sod 3.375 gm/ Sodium Chloride) 50 mls @ 12.5 mls/hr IV Q8 [facility] Last Admin: 07/31/19 06:51 Dose: 12.5 mls/hr Documented by: Insulin Human Lispro (Humalog Kwikpen (Bkc)) [address] [facility]; Protocol Last Admin: 07/31/19 06:55 Dose: Not Given Documented by: Lisinopril (Zestril) 10 mg PO QHS [facility] Last Admin: 07/30/19 23:26 Dose: 10 mg Documented by: Nitroglycerin (Nitrostat) 0.4 mg SUBLINGUAL Q5M PRN PRN Reason: CARDIAC/CHEST PAIN Ondansetron HCl (Zofran) 4 mg IV Q8H PRN PRN PRN Reason: NAUSEA/VOMITING Oxycodone HCl (Oxyir) 5 mg PO Q4H PRN PRN PRN Reason: Pain Score 4-5/10 Last Admin: 07/30/19 23:27 Dose: 5 mg Documented by: Pantoprazole Sodium (Protonix) 20 mg PO BID [facility] Last Admin: 07/30/19 23:37 Dose: 20 mg Documented by: Pravastatin Sodium (Pravachol) 20 mg PO QHS [facility] Last Admin: 07/30/19 23:26 Dose: 20 mg Documented by: Prochlorperazine Edisylate (Compazine Iv) 5 mg IV Q4H PRN PRN PRN Reason: Breakthrough Nausea/Vomiting Psyllium Hydrophilic Mucilloid (Metamucil) 1 packet PO DAILY PRN PRN PRN Reason: Constipation Rivaroxaban (Xarelto) 15 mg PO BIDCM CRISPIN Senna/Docusate Sodium (Senokot-S, Yane-Colace) 2 tablet PO BID PRN PRN PRN Reason: Constipation Sodium Chloride () 10 - 40 ml IV UD PRN PRN Reason: SALINE FLUSH Last Admin: 07/31/19 01:40 Dose: 10 ml Documented by: Throat Lozenges (Cepacol Sore Throat Lozenge) 1 lozenge MUCOUS MEM Q2H PRN PRN PRN Reason: SORE THROAT Discharge Activity: - - Encourage routine activity but avoid aggressive activity until cleared per your primary care physician at follow-up. May resume sexual activity in: 1-2 weeks Weight Bearing Status: Weight bearing as tolerated Call your doctor if you observe: Fever of 101 or Higher, Inability to urinate, Inability to have a bowel movement, Shortness of breath, Dizziness, Fainting spells, Chest pain, Uncontrolled pain Home Medications: Medications to take at Discharge Amitriptyline HCl 100 mg PO QHS 06/04/17 Folic Acid 2 mg PO DAILY@0800 06/04/17 Lisinopril [Zestril] 10 mg PO QHS 06/04/17 Acetaminophen [Tylenol] 1,500 mg PO DAILY PRN PRN 07/28/19 Glipizide [Glipizide ER] 5 mg PO DAILY 07/28/19 Infliximab [Remicade] 1 dose IV X1 07/28/19 Metformin HCl [Metformin HCl ER] 500 mg PO DAILY 07/28/19 Omeprazole 40 mg PO DAILY 07/28/19 Pravastatin [Pravachol] 20 mg PO QHS 07/28/19 Rivaroxaban [Xarelto] 1 ea PO UD #1 tab.ds.pk 07/30/19 Albuterol IH (ProAir) [Proair Hfa] 4 - 8 puff INHALATION Q4H PRN PRN #1 inhaler 07/31/19 Levofloxacin [Levaquin] 750 mg PO DAILY #4 tab 07/31/19 Oxycodone [Oxyir] 5 mg PO Q4H PRN PRN 5 Days #20 tablet 07/31/19 Following Prescrptions Were Given to Patient: Levofloxacin [Levaquin] 750 mg PO DAILY #4 tab Transmission Status: Pending to [facility] #30 Oxycodone [Oxyir] 5 mg PO Q4H PRN PRN 5 Days #20 tablet PRN Reason: pain 6-01/13 Transmission Status: Sent to [facility] #30 Albuterol IH (ProAir) [Proair Hfa] 4 - 8 puff INHALATION Q4H PRN PRN #1 inhaler PRN Reason: Dyspnea, wheezing Transmission Status: Pending to [facility] #30 Rivaroxaban [Xarelto] 1 ea PO UD #1 tab.ds.pk Transmission Status: Received by [facility] #30 Primary Care Physician: Zach Null MD [Primary Care Provider] - Please follow up with your Primary Care Physician in: Follow-up within 3-5 days to review admission. Patient Instructions: What Is Pneumonia?, Preventing Pneumonia, Treating Pneumonia Disposition: Home Minutes spent on discharge:: 35 Patient Condition:: Fair Medical Necessity - Tobacco Use Smoking Status: Former smoker Tobacco Use: Non-smoker, Secondhand Meaningful Use Info Meaningful Use Diagnoses (Choose all that apply): None applicable Inpatient E&M: 93849 Disch Hosp
[2019-07-31 07:53] VITALS: BP 165/76; PULSE 97; RESP 20; TEMP 36.8; O2SAT 98
[2019-07-31] MEDS: Pantoprazole Sodium 20 MG Tablet PO (07:56)
[2019-07-31] MEDS: Folic Acid 1 MG Tablet 2 MG PO (07:57)
[2019-07-31 08:03] VITALS: O2SAT 95
[2019-07-31 08:30] LABS: D-Dimer Quantitative (DVT/PE) 10.35 FEU/ug/m (0.27-0.49)
[2019-07-31] MEDS: Rivaroxaban 15 MG Tablet PO (08:57)
--- NOTE | 2019-08-01 14:31 | CASEMGMT ---
JAMARCUS BUI Discharge Follow-up Phone Call: FREDRICK: Leann Strata: 3 Call Date: 08/01/19 Discharge Date: 07/31/19 Time of Call: 1430 Duration: 5 min Admitting Diagnosis: Severe sepsis, PNA, Hypoxia, Possible Covid. JAMARCUS BUI completed follow-up phone call after recent hospitalization. Patient states is doing pretty well but the mornings are rough. Patient was able to fill prescriptions without any issues. Patient had no questions regarding discharge instructions. Patient is to call PCP to schedule follow-up appt. Patient had no further questions or concerns at this time.
== END 2019-07-31 11:45 | disposition home or self-care (01) | DRG 871 ==
LOC: ED 13:18 → ICU 14:33 → MS2 07-29 11:45 → MS3 07-30 19:52
PROVIDERS: Admitting Provider Family Medicine; Emergency Provider Emergency Medicine; PCP Internal Medicine; Visit Provider Family Medicine
DX: A41.9 Sepsis, unspecified organism (principal); J18.9 Pneumonia, unspecified organism; K50.90 Crohn's disease, unspecified, without complications; I82.442 Acute embolism and thrombosis of left tibial vein; R65.20 Severe sepsis without septic shock; R09.02 Hypoxemia; M06.9 Rheumatoid arthritis, unspecified; L40.50 Arthropathic psoriasis, unspecified; E11.9 Type 2 diabetes mellitus without complications; I10 Essential (primary) hypertension; E78.5 Hyperlipidemia, unspecified; M79.7 Fibromyalgia; G89.29 Other chronic pain; K21.9 Gastro-esophageal reflux disease without esophagitis; F32.9 Major depressive disorder, single episode, unspecified; F41.9 Anxiety disorder, unspecified; E66.9 Obesity, unspecified; Z68.31 Body mass index [BMI] 31.0-31.9, adult; Z79.4 Long term (current) use of insulin; Z79.899 Other long term (current) drug therapy; Z96.651 Presence of right artificial knee joint; Z87.11 Personal history of peptic ulcer disease; Z87.891 Personal history of nicotine dependence
CPT/HCPCS: 36415; 71045; 71275; 80053; 81001; 82728; 82962; 83605; 83615; 83735; 84145; 84484; 85025; 85379; 85610; 85730; 86140; 87040; 87070; 87086; 87088; 87205; 87449; 87633; 87635; 87641; 93005; 93970; 96361; 96374; 96375; 99251; 99285; J7030; J7040; J7050; Q9967; A4216; G0463; J3490; U0004

== ENCOUNTER → 2019-10-21 12:26 | Outpatient (CLI) | payer OTHER, SELFPAY ==
[2019-07-28 16:43] VITALS: BMI 30.7
[2019-10-25 11:08] LABS: QNTFERON TB Mitogen Value > 10.00 IU/mL (.); QNTFERON TB Nil Value 0.02 IU/mL (.); QNTFERON TB1+ Ag Value 0.02 IU/mL (.); QNTFERON TB2+ Ag Value 0.02 IU/mL (.)
[2019-10-25 15:50] LABS: QNTIFERON TB Positive Criteria Negative (Negative)
== END ==
PROVIDERS: PCP Internal Medicine
DX: K50.80 Crohn's disease of both small and large intestine without complications (principal)
CPT/HCPCS: 36415; 86480

== ENCOUNTER 2019-11-08 17:42 | Emergency (ER) | payer OTHER, SELFPAY ==
[2019-07-28 16:43] VITALS: BMI 30.7
[2019-11-08 17:43] VITALS: BP 148/83; PULSE 113; RESP 16; TEMP 36.3; O2SAT 99; BMI 30.9
[2019-11-08 17:45] VITALS: BP 148/83; PULSE 113; RESP 16; TEMP 36.3; O2SAT 99
--- NOTE | 2019-11-08 18:00 | EKG12_ITS ---
Test Reason : EDEMA Blood Pressure : / mmHG Vent. Rate : 104 BPM Atrial Rate : 104 BPM P-R Int : 124 ms QRS Dur : 096 ms QT Int : 340 ms P-R-T Axes : 044 004 018 degrees QTc Int : 447 ms Sinus tachycardia Otherwise normal ECG Confirmed by NEEL MENDOZA, PARIS ([id number]), general expeditor MARIANA ALBA ([id number]) on 11/14/2019 9:19:34 AM Referred By: LUDWIG Confirmed By:PARIS SHAIKH MD
--- NOTE | 2019-11-08 18:02 | ED.DCSUM_ITS ---
- ER Visit Summary Date of Service: 11/08/19 Chief Complaint: Swelling to both lower extremities and right hand. History of Present Illness: The patient is a 59 F history of prior left DVT blood thinners have since been stopped, noncemented diabetes, hypertension and admitted for pneumonia and sepsis in June. Patient states that since that time she is had intermittent swelling of her lower extremities and hand. Her primary care physician Dr. Zach Null intermittently treated her with steroids and antibiotics. She states that the swelling comes and goes and has for months. It is now returned to her right hand and both feet lower extremities. She denies any chest pain or significant shortness of breath. No fever or chills. Physical Examination: Middle-aged female vital signs stable afebrile. Pulse ox 90% room air no signs hypoxia. H EENT exam unremarkable. Neck nontender no JVD no lymphadenopathy. Lungs clear to auscultation bilaterally. Heart regular rhythm rate about 110 no murmur. Abdomen soft nontender normal bowel sounds no peritoneal signs. Extremities moves all 4. Neurovascular intact. Normal firewall engineer strength. Dorsi plantarflexion intact. She has mild swelling redness of the dorsum of her right hand. Swelling redness to both feet. Calves are nontender without cords. Neurologically she is awake and alert. No focal motor deficits. Clinically the skin is slightly red but is not hot or significantly tender I do not think this is cellulitis. Test Results: Chest x-ray shows linear atelectasis right lower lobe versus scar tissue versus other. No acute process read by the radiologist myself. Portable 1 view. Venous ultrasound both lower extremity shows no DVT as read by the aviation technician. EKG sinus tachycardia rate of 104 with no signs of [place] or ischemia. CBC showed a normal white count 7. Hemoglobin 9.7 which is better than her baseline. Chemistries unremarkable normal gap. Repeat exam patient doing well at 7:01 PM. We discussed her test results. In the past her primary care physician has put her on either steroids and/or antibiotics for this and a generalized improved. Clinically I do not think this is infectious. She will be restarted on her Medrol Dosepak. Emergency Department Course and Treatment: Screening labs are being obtained. Due to the history of prior DVT and her being off the blood thinners I will ultrasound her lower extremities. Treatment Plan: Follow-up with primary care physician. Medrol Dosepak. Return if worse. Disposition: Discharge Impression: Acute bilateral lower extremity and right hand swelling of uncertain etiology History of prior DVT History of diabetes and hypertension This note was generated with [employer] dictation software. It may contain incorrect words, spelling, and punctuation that were not noted in review of the chart prior to signing ED Disposition - Plan for ED Patient: Referrals: Zach Null MD [Primary Care Provider] -
--- NOTE | 2019-11-08 18:06 | US_ITS ---
STUDY: VENOUS DOPPLER ULTRASOUND - BILATERAL LOWER EXTREMITIES REASON FOR EXAM: Female, 59 years old. Pain and swelling TECHNIQUE: Ultrasound evaluation of the deep vein system to include frias-scale imaging and compression was performed. Frias-scale imaging and Doppler sonographic evaluation, including duplex spectral analysis and qualitative color flow sonography, was performed. COMPARISON: None. FINDINGS: RIGHT LEG Common Femoral Vein: Normal compression, spontaneity and augmentation. Normal color Doppler. Common Femoral Vein/Greater Saphenous Junction: Normal compression, spontaneity and augmentation. Normal color Doppler. Superficial Femoral Proximal: Normal compression, spontaneity and augmentation. Normal color Doppler. Superficial Femoral Middle: Normal compression, spontaneity and augmentation. Normal color Doppler. Superficial Femoral Distal: Normal compression, spontaneity and augmentation. Normal color Doppler. Popliteal Vein: Normal compression, spontaneity and augmentation. Normal color Doppler. Posterior Tibial Vein: Normal compression, spontaneity and augmentation. Normal color Doppler. Peroneal Vein: Normal compression, spontaneity and augmentation. Normal color Doppler. The visualized soft tissues are unremarkable. LEFT LEG Common Femoral Vein: Normal compression, spontaneity and augmentation. Normal color Doppler. Common Femoral Vein/Greater Saphenous Junction: Normal compression, spontaneity and augmentation. Normal color Doppler. Superficial Femoral Proximal: Normal compression, spontaneity and augmentation. Normal color Doppler. Superficial Femoral Middle: Normal compression, spontaneity and augmentation. Normal color Doppler. Superficial Femoral Distal: Normal compression, spontaneity and augmentation. Normal color Doppler. Popliteal Vein: Normal compression, spontaneity and augmentation. Normal color Doppler. Posterior Tibial Vein: Normal compression, spontaneity and augmentation. Normal color Doppler. Peroneal Vein: Normal compression, spontaneity and augmentation. Normal color Doppler. The visualized soft tissues are unremarkable. US/Venous Duplex Imag/Josue Extrem IMPRESSION: Normal venous Doppler ultrasound of the bilateral lower extremities. Electronically Signed: Crispin Escoto, at 19:13 EDT Tel , Service support ,
--- NOTE | 2019-11-08 18:16 | RAD_ITS ---
STUDY: X-RAY CHEST REASON FOR EXAM: Female, 59 years old. Pneumonia. Leg swelling. TECHNIQUE: Frontal view of the chest COMPARISON: 07/29/19 FINDINGS: There is linear opacity in the right perihilar region. The lungs are otherwise clear. There are no pleural effusions. There is no pneumothorax. The heart is normal in size. The visualized osseous structures are within normal limits. RAD/Chest 1 View (Portable) IMPRESSION: Linear opacity in the right perihilar region which likely represents atelectasis. Otherwise, clear lungs. Electronically Signed: Crispin Escoto, at 18:35 EDT Tel , Service support ,
[2019-11-08 18:21] LABS: Absolute Lymphocyte Count 1.01 X10^3/uL (0.83-4.51); Absolute Neutrophil Count 6.2 X10^3/uL (2.0-7.7); Basophil# 0.02 X10^3/uL; Basophil% 0.3 % (0-1); Eosinophil# 0.13 X10^3/uL; Eosinophils% 1.7 % (0-5); Hematocrit 37.5 % (37-47); Hemoglobin 11.7 g/dL (12.0-15.0); Lymphocyte # 1.01 X10^3/ul (4.0); Lymphocyte % 13.1 % (19-41); Mean Corp Hgb Conc 31.2 g/dL (32-36); Mean Corpuscular Hgb 25.5 pg (27.0-32.0); Mean Corpuscular Volume 81.7 fL (81-99); Mean Platelet Vol. 9.9 fl (6.2-12.0); Monocyte# 0.23 X10^3/uL; NRBC Flagged by Analyzer 0 % (0-5); Neutrophil % 80.3 % (47-70); Platelet Count 223 K/mm3 (150-450); RBC Distribution Width CV 16.8 % (11.6-14.6); RBC Distribution Width SD 48.7 fl (35.1-43.9); Red Blood Count 4.59 M/mm3 (4.2-5.4); White Blood Count 7.7 K/mm3 (4.4-11.0)
[2019-11-08 18:29] LABS: Anion Gap 5 (5-15); BUN 11 mg/dL (7-18); BUN/Creat Ratio 15.1 RATIO (10-20); Calcium,Total 9.2 mg/dL (8.5-10.1); Chloride 103 mmol/L (98-107); Creatinine, Serum 0.73 mg/dL (0.55-1.02); EST Glomerular Filtration Rate 87 mL/min (>60); Est Glom Filt Rate - Afr Amer 105 mL/min (>60); Estimated Creatinine Clearance 70.77 ml/min; Glucose 142 mg/dL (74-106); Sodium Level 137 mmol/L (136-145)
[2019-11-08 18:45] VITALS: BP 155/86; PULSE 104; RESP 18; TEMP 36.7; O2SAT 98
--- NOTE | 2019-11-08 19:05 | ED.DEP ---
ED Disposition - Plan for ED Patient: Disposition: Home or Assisted Living Instructions: ED Peripheral Edema, Bilateral Prescriptions: MethylPREDNISolone DosePak [Medrol DosePak] 4 mg PO UD #1 box Prescription Printed Referrals: Zach Null MD [Primary Care Provider] - As soon as possible Additional Instructions: Take the Medrol (steroid) dose pack. Call and follow-up with your doctor this week. Return if feeling a lot worse.
== END 2019-11-08 19:25 | disposition home or self-care (01) ==
PROVIDERS: Emergency Provider Emergency Medicine; PCP Internal Medicine
DX: M79.89 Other specified soft tissue disorders (principal); R00.0 Tachycardia, unspecified; E11.9 Type 2 diabetes mellitus without complications; I10 Essential (primary) hypertension; Z79.84 Long term (current) use of oral hypoglycemic drugs; Z79.899 Other long term (current) drug therapy; Z86.718 Personal history of other venous thrombosis and embolism; Z87.01 Personal history of pneumonia (recurrent)
CPT/HCPCS: 71045; 80048; 85025; 93005; 93970; 99283; A4216

== ENCOUNTER → 2019-11-13 09:38 | Outpatient (CLI) | payer OTHER, SELFPAY ==
[2019-07-28 16:43] VITALS: BMI 30.7
[2019-11-08 17:43] VITALS: BMI 30.9
== END ==
PROVIDERS: PCP Internal Medicine; Referring Provider Internal Medicine Pulmonary Disease; Visit Provider Internal Medicine Pulmonary Disease
DX: J18.9 Pneumonia, unspecified organism (principal)
CPT/HCPCS: 87635; 94799; U0003

== ENCOUNTER → 2019-12-14 08:54 | Outpatient (CLI) | payer OTHER, SELFPAY ==
[2019-12-07 06:25] VITALS: BMI 30.4
--- NOTE | 2019-12-14 08:55 | RAD_ITS ---
STUDY: X-RAY - ESOPHAGUS (BARIUM SWALLOW) WITH FLUOROSCOPY REASON FOR EXAM: Female, 59 years old. DYSPHAGIA X 2 YEARS WORSE SINCE JUNE, SORE THROAT, HX REFLUX TECHNIQUE: 15 view(s) of the esophagus were obtained following swallowing of barium. FLUOROSCOPY TIME (if supplied): (0:29) minutes/seconds COMPARISON: None. FINDINGS: There is no demonstrated esophageal foreign body. There is no demonstrated stricture or mucosal abnormality. Normal gastroesophageal junction, without a demonstrated hiatal hernia. The patient ingested a 12 mm tablet of barium without any difficulty. There is atherosclerotic tortuosity of the aortic arch and descending thoracic aorta. Normal visualized pulmonary parenchyma. There are diffuse degenerative changes of the visualized thoracic spine. RAD/Esophagus Dual Contrast IMPRESSION: Normal plain film x-ray examination (barium swallow) of the esophagus. Electronically Signed: Calvin Flores, at 14:46 EDT , Service support ,
== END ==
PROVIDERS: PCP Internal Medicine; Referring Provider Otolaryngology; Visit Provider Otolaryngology
DX: R13.10 Dysphagia, unspecified (principal)
CPT/HCPCS: 74221

== ENCOUNTER → 2019-12-26 10:41 | Outpatient (CLI) | payer OTHER, SELFPAY ==
[2019-12-07 06:25] VITALS: BMI 30.4
--- NOTE | 2019-12-26 13:20 | PFT ---
INTRODUCTION: The patient is a 59-year-old female that presents for pulmonary function studies secondary to a diagnosis of shortness of breath. Respiratory therapy reports good patient effort. Bronchodilators were used during testing. INTERPRETATION: Forced expiration spirometry demonstrates no evidence of a large airways obstructive ventilatory defect. There was no significant response to aerosolized bronchodilators, based upon strict ATS criteria. Spirograms are of good quality and plateau normally. Body plethysmography was performed and reveals a decreased TLC to 2.97 L, 58% of predicted, indicative of a severe restrictive ventilatory impairment. The remainder of the lung volumes are symmetrically reduced. Diffusing capacity by single breath CO is reduced to 52% of predicted. IMPRESSION: Severe restrictive ventilatory impairment with symmetric reduction in diffusing capacity.
== END ==
PROVIDERS: PCP Internal Medicine; Referring Provider Internal Medicine Critical Care Medicine; Visit Provider Internal Medicine Critical Care Medicine
DX: R06.02 Shortness of breath (principal); F17.211 Nicotine dependence, cigarettes, in remission
CPT/HCPCS: 94060; 94726; 94729

== ENCOUNTER → 2019-12-27 07:40 | Outpatient (CLI) | payer OTHER, SELFPAY ==
[2019-12-07 06:25] VITALS: BMI 30.4
--- NOTE | 2019-12-27 07:40 | CT_ITS ---
STUDY: CT CHEST WITHOUT CONTRAST REASON FOR EXAM: Female, 59 years old. ABNORMAL X RAY FROM 11/08/19 AND COUGH SINCE JUNE 2019 RADIATION DOSAGE (If Supplied By Facility): CTDIvol = ( 14.43 ) mGy, DLP = ( 397.77 ) mGycm TECHNIQUE: Transaxial imaging was performed without the administration of intravenous contrast material. Multiplanar coronal and sagittal images were reformatted. Individualized dose optimization techniques were used for this CT. COMPARISON: Comparison is made with prior examination dated 07/28/2019. FINDINGS: Mildly enlarged benign-appearing bilateral axillary lymph nodes. Increased markings with areas of confluence seen in the anterior aspect of the right upper lobe. Focal thickening of the right major fissure. Persistent increased markings in the right lower lobe with areas of confluence although this has improved as compared to prior study. Tiny right pleural effusion. There are calcifications of the coronary arteries. Normal mediastinum. Normal hilar regions. Normal unenhanced pulmonary arteries. There is atherosclerotic calcification of the aortic arch. There are degenerative changes of the thoracic spine. Fatty infiltration of the liver. Hepatomegaly. CT/Chest without Contrast IMPRESSION: Persistent increased markings in the anterior aspect of the right upper lobe as well as in the right lower lobe although there has been improvement. Tiny right pleural effusion with some thickening of the right major fissure. Electronically Signed: Calvin Flores, at 9:48 EDT , Service support ,
[2019-12-27 08:13] VITALS: PULSE 109; PULSE 111; PULSE 112; PULSE 115; PULSE 117; PULSE 118; PULSE 120; O2SAT 94; O2SAT 95; O2SAT 96; O2SAT 97
--- NOTE | 2019-12-28 08:34 | PCM.PSN.6M ---
PSN 6 Minute Walk Test - 6 Minute Walk Test 6 Minute Walk Test: 6 Minute Walk Test PSN:6-Minute Walk Test Start: 12/27/19 08:12 Freq: Status: Active Protocol: RESP.6MINW Document 12/27/19 08:13 [facility] (Rec: 12/27/19 08:16 [facility] [id number]) 6 Minute Walk Test Date Performed 12/27/19 Time Performed 08:00 Height 5 ft 5 in Weight: 179 lb Weight in Pounds 179.[address]: Daniel Fernandes Assistive device used: None Pre-test Oxygen Delivery Method Room Air Pulse Ox (%) 95 Pulse Rate (60-100 beats/min) 112 H Dyspnea Regi Scale (0-10) 2 1st minute Oxygen Delivery Method Room Air Pulse Ox (%) 95 Pulse Rate (60-100 beats/min) 109 H Dyspnea Regi Scale (0-10) 2 Number of Rests Taken 0 2nd minute Oxygen Delivery Method Room Air Pulse Ox (%) 95 Pulse Rate (60-100 beats/min) 115 H Dyspnea Regi Scale (0-10) 3 Number of Rests Taken 0 Reported Symptoms Increased Work of Breathing 3rd minute Oxygen Delivery Method Room Air Pulse Ox (%) 94 Pulse Rate (60-100 beats/min) 120 H Dyspnea Regi Scale (0-10) 4 Number of Rests Taken 0 Reported Symptoms Increased Work of Breathing 4th minute Oxygen Delivery Method Room Air Pulse Ox (%) 96 Pulse Rate (60-100 beats/min) 118 H Dyspnea Regi Scale (0-10) 4 Number of Rests Taken 1 Reported Symptoms Increased Work of Breathing 5th minute Oxygen Delivery Method Room Air Pulse Ox (%) 96 Pulse Rate (60-100 beats/min) 117 H Dyspnea Regi Scale (0-10) 4 Number of Rests Taken 0 Reported Symptoms Increased Work of Breathing 6th minute Oxygen Delivery Method Room Air Pulse Ox (%) 95 Pulse Rate (60-100 beats/min) 118 H Dyspnea Regi Scale (0-10) 4 Number of Rests Taken 0 Reported Symptoms Increased Work of Breathing Post-test Oxygen Delivery Method Room Air Pulse Ox (%) 97 Pulse Rate (60-100 beats/min) 111 H Dyspnea Regi Scale (0-10) 2 Full Laps Walked 11 Partial Lap, Number of Tiles Walked 29 Total Distance Walked (ft) 678 - Interpretation Interpretation: The patient ambulated 678 feet over the course of 6 minutes beginning on room air without assistive devices. Pretesting oxygen saturation was noted to be 95% on room air. With ambulation, the kellee oxygen saturation was 94%. The patient was tachycardic throughout the entire test. Although there was evidence of impaired walk distance, there was no significant exertional oxygen desaturation. - Recommendations Recommendations: There is no indication for the use of supplemental oxygen at this time.
== END ==
PROVIDERS: PCP Internal Medicine; Referring Provider Internal Medicine Critical Care Medicine; Visit Provider Internal Medicine Critical Care Medicine
DX: R06.02 Shortness of breath (principal); F17.211 Nicotine dependence, cigarettes, in remission; R93.89 Abnormal findings on diagnostic imaging of other specified body structures
CPT/HCPCS: 71250; 94618

== ENCOUNTER → 2020-12-28 11:00 | Outpatient (CLI) | payer OTHER, SELFPAY ==
[2020-12-28 11:37] LABS: Absolute Lymphocyte Count 1.25 X10^3/uL (0.83-4.51); Absolute Neutrophil Count 4.1 X10^3/uL (2.0-7.7); Basophil# 0.05 X10^3/uL; Basophil% 0.8 % (0-1); Eosinophil# 0.17 X10^3/uL; Eosinophils% 2.8 % (0-5); Erythrocyte Sedimentation Rate 10 mm/hr (0-30); Hematocrit 40.8 % (37-47); Lymphocyte # 1.25 X10^3/ul (0.83-4.51); Lymphocyte % 20.6 % (19-41); Mean Corp Hgb Conc 31.9 g/dL (32-36); Mean Corpuscular Hgb 26.7 pg (27.0-32.0); Mean Corpuscular Volume 83.8 fL (81-99); Mean Platelet Vol. 10.2 fl (6.2-12.0); Monocyte# 0.45 X10^3/uL; Monocyte% 7.4 % (0-10); NRBC Flagged by Analyzer 0 % (0-5); Neutrophil # 4.11 X10^3/uL (2.7-7.7); Neutrophil % 67.7 % (47-70); Platelet Count 192 K/mm3 (150-450); RBC Distribution Width CV 14.7 % (11.6-14.6); RBC Distribution Width SD 44.4 fl (35.1-43.9); Red Blood Count 4.87 M/mm3 (4.2-5.4); White Blood Count 6.1 K/mm3 (4.4-11.0)
[2020-12-28 12:28] LABS: ALB/GLOB Ratio 0.8 RATIO (0.9-2.4); AST(SGOT) 53 U/L (15-37); Alanine Aminotransfer ALT/SGPT 51 U/L (13-56); Albumin, Serum 3.6 g/dL (3.2-5.0); Alkaline Phosphatase 88 U/L (45-117); Anion Gap 7 (5-15); BUN 12 mg/dL (7-18); BUN/Creat Ratio 15.5 RATIO (10-20); CRP 4.82 mg/L (0.0-3.0); Calcium,Total 9.2 mg/dL (8.5-10.1); Chloride 99 mmol/L (98-107); Creatinine, Serum 0.77 mg/dL (0.55-1.02); EST Glomerular Filtration Rate 81 mL/min (>60); Est Glom Filt Rate - Afr Amer 98 mL/min (>60); Globulin 4.3 g/dL (2.2-4.2); Glucose 193 mg/dL (74-106); Potassium 3.6 mmol/L (3.5-5.1); Protein, Total 7.9 g/dL (6.4-8.2); Sodium Level 136 mmol/L (136-145)
== END ==
PROVIDERS: PCP Internal Medicine; Visit Provider Internal Medicine Gastroenterology
DX: K50.90 Crohn's disease, unspecified, without complications (principal)
CPT/HCPCS: 80053; 85025; 85652; 86140

== ENCOUNTER 2021-01-24 06:34 | Day surgery (SDC) | payer OTHER, SELFPAY ==
[2021-01-24] VITALS (8 sets, daily range): BP systolic 137–151; BP diastolic 57–91; PULSE 92–102; RESP 16; TEMP 36.7–37.2; O2SAT 94–100; BMI 32.8
[2021-01-24] MEDS: Ipratropium/Albuterol Sulfate 3 ML AMPUL.NEB INHALATION (07:22)
[2021-01-24] MEDS: Lactated Ringers 1,000 ML 100 ML IV (07:29)
[2021-01-24 07:36] LABS: Bedside Glucose 187 mg/dL (70-110)
--- NOTE | 2021-01-24 07:45 | EGD_PTH ---
PATIENT: SHANE RODRIGUEZ LOC: EN U#:[id number] AGE/SX: 60/F ROOM: RE01/24/[address]: Dr. Jeff More DO : 1960 BED: DIS: 01/24/2021 SPEC #: [id number] RECD: 01/24/21 11:49 STATUS: KAYCEE JUSTA #: [id number] JAMI: 01/24/21 07:[address]: Jeff More DEPT: SURGICAL PATHOLOGY RECD BY: Judith Resendiz ENTERED: 01/24/21 12:48 SP TYPE: EGD BIOPSY OT DR: Dr. Zach Null MD Tissues: A - Gastric mucous membrane B - Esophagus, NOS C - Ileum, NOS D - COLON BIOPSY E - Descending colon F - Sigmoid colon biopsy Procedures: Special Stain Group II Surgery Specimen Level IV Alcian Blue/PAS (control) HEADER OPERATION: Colonoscopy, EGD ([facility]) PRE-OP DIAGNOSIS: GERD, Crohn?s disease TISSUE SUBMITTED: A ? Gastritis, gastric antrum biopsy for H. pylori and path, B ? Distal esophagus biopsy, C ? Terminal ileum biopsy, D ? Random colon biopsies, E ? Descending colon polyp, F ? Pseudopolyp, sigmoid biopsy MICROSCOPIC DIAGNOSIS A. Gastric antrum, biopsy: Chronic gastritis. See comment. B. Distal esophagus, biopsy: Gastroesophageal junctional mucosa with chronic inflammation. No evidence of goblet cell metaplasia. See comment. C. Terminal ileum, biopsy: No pathologic change. D. Colon, random biopsy: Minimal glandular distortion. No evidence of colitis. E. Descending colon polyp, biopsy: Tubular adenoma. F. Sigmoid colon polyp, biopsy: Fragments of benign colonic mucosa. See comment. AM:samia 01/25/2021 COMMENT A. The results of immunohistochemistry for Helicobacter pylori will be reported separately ([id number]). B. Alcian blue/PAS stain with matched control supports the above diagnosis. F. Neither hyperplastic nor adenomatous change is identified. Clinical correlation is suggested. MICROSCOPIC DESCRIPTION Slides are reviewed. GROSS DESCRIPTION A - Received in fixative is one container labeled with the patient's name and designated gastritis gastric antrum biopsy. The specimen consists of two irregular fragments of light fall soft tissue that in aggregate measure 0.8 x 0.4 x 0.1 cm. The specimen is totally submitted in one cassette. B - Received in fixative is one container labeled with the patient's name and designated distal esophagus biopsy. The specimen consists of two irregular fragments of light fall soft tissue that in aggregate measure 0.5 x 0.5 x 0.1 cm. The specimen is totally submitted in one cassette. C - Received in fixative is one container labeled with the patient's name and designated biopsy of terminal ileum. The specimen consists of two irregular fragments of light fall soft tissue that in aggregate measure 0.6 x 0.3 x 0.1 cm. The specimen is totally submitted in one cassette. D - Received in fixative is one container labeled with the patient's name and designated random colonic biopsy. The specimen consists of multiple irregular fragments of light fall soft tissue that in aggregate measure 1 x 0.5 x 0.1 cm. The specimen is totally submitted in one cassette. E - Received in fixative is one container labeled with the patient's name and designated descending colon polyp biopsy. The specimen consists of one irregular fragment of light fall soft tissue that measures 0.3 x 0.3 x 0.1 cm. The specimen is totally submitted in one cassette. F - Received in fixative is one container labeled with the patient's name and designated pseudopolyp sigmoid. The specimen consists of two irregular fragments of light fall soft tissue that in aggregate measure 0.3 x 0.3 x 0.1 cm. The specimen is totally submitted in one cassette. / SJ:samia 01/24/21 TC:3 CPT: 74075 x6, 08919
--- NOTE | 2021-01-24 07:45 | IMM_PTH ---
PATIENT: SHANE RODRIGUEZ LOC: EN U#:[id number] AGE/SX: 60/F ROOM: RE01/24/[address]: Dr. Jeff More DO : 1960 BED: DIS: 01/24/2021 SPEC #: [id number] RECD: 01/24/21 12:55 STATUS: KAYCEE RESonya #: [id number] JAMI: 01/24/21 07:[address]: Jeff More DEPT: IMMUNOHISTOCHEMISTRY RECD BY: Jennifer Israel ENTERED: 01/24/21 12:55 SP TYPE: IMMUNO OTHR DR: Dr. Zach Null MD Tissues: A - Stomach, NOS Procedures: H Pylori (initial) PHYSICIAN & INSTITUTION [place] [address] SPECIMEN INFORMATION: Tissue Source: A ? Gastric antrum Clinical Info: GERD, Crohn?s disease Specimen Number: [id number] CPT code: 09307 METHODOLOGY: Deparaffinized sections of prefer/formalin-fixed tissue or PAP/DQ stained slides are incubated with monoclonal/polyclonal antibodies/oligonucleotide probes. Localization is made via biotin free immunoperoxidase method. Appropriate controls are performed and reacted as expected. Results on target cell population are indicated in the following table: RESULTS: ANTIBODY / CLONE RESULT Block A H Pylori (polyclonal) negative These tests were developed and their performance characteristics determined by [facility]. They may not have been cleared or approved by the U.S. Food and Drug Administration. The FDA has determined that such clearance or approval is not necessary. INTERPRETATION: A. Gastric antrum, biopsy: Negative for Helicobacter pylori organisms. AM:samia 01/25/2021
--- NOTE | 2021-01-24 08:25 | PCM.HP.BLA ---
History and Physical Date of Admission: 01/24/21 Intake Visit Reasons: CHRONES DISEASE/TRANSFER CARE Is patient in pain?: No Allergies doxycycline Allergy (Verified 12/28/20 09:50) Hives dyclonine Allergy (Verified 12/28/20 09:50) Rash etodolac Allergy (Verified 12/28/20 09:50) Rash Sulfa (Sulfonamide Antibiotics) Allergy (Verified 12/28/20 09:50) Rash adhesive tape Adverse Reaction (Verified 12/28/20 09:50) Itching magnesium Adverse Reaction (Verified 12/28/20 09:50) Angioedema Medications amitriptyline 100 mg PO QHS 06/04/17 [History Confirmed 12/28/20] folic acid 2 mg PO DAILY@0800 06/04/17 [History Confirmed 12/28/20] acetaminophen 1,500 mg PO DAILY PRN PRN 07/28/19 [History Confirmed 12/28/20] glipizide 5 mg PO DAILY 07/28/19 [History Confirmed 12/28/20] omeprazole 40 mg PO DAILY 07/28/19 [History Confirmed 12/28/20] pravastatin 20 mg PO QHS 07/28/19 [History Confirmed 12/28/20] albuterol sulfate 4 - 8 puff INHALATION Q4H PRN PRN #1 inhaler 07/31/19 [Rx Confirmed 12/28/20] fluticasone propionate 50 mcg/actuation nasal spray,suspension 1 spray INTRANASAL DAILY 12/07/19 [History Confirmed 12/28/20] hydrochlorothiazide 12.5 mg capsule 12.5 mg PO DAILY 12/07/19 [History Confirmed 12/28/20] potassium chloride 8 mEq capsule,extended release 8 meq PO DAILY 12/07/19 [History Confirmed 12/28/20] ustekinumab 90 mg/mL subcutaneous syringe 90 mg SC Q8W ml 01/18/20 [History Confirmed 12/28/20] fluticasone furoate 200 mcg-vilanterol 25 mcg/dose inhalation powder 1 inh INHALATION QDAY #3 ea 09/18/20 [Rx Confirmed 12/28/20] metformin 500 mg tablet,extended release 24 hr 500 mg PO BID tab 09/18/20 [History Confirmed 12/28/20] montelukast 10 mg tablet 10 mg PO QPM #90 tab 09/18/20 [Rx Confirmed 12/28/20] bisacodyl 5 mg tablet,delayed release 20 mg PO ONCE #4 tab 12/28/20 [Rx Confirmed 12/28/20] polyethylene glycol 3350 17 gram/dose oral powder 17 g PO Q10M #238 g 12/28/20 [Rx Confirmed 12/28/20] Patient : No PFSH Medical History Back pain Bloody stools Bronchitis Chest pain Crohn disease Diabetes Diarrhea Difficulty balancing Diverticulitis History of arthritis History of hypertension Knee pain Shoulder pain Stomach ulcer Surgical History History of cholecystectomy History of knee replacement Family History Father Heart disease Brother Heart disease COPD (chronic obstructive pulmonary disease) Diabetes Mother Cancer Breast Diabetes Sister Diabetes Social History Smoking Status: Former smoker quit date: 04/06/03 Tobacco: How many years used: 32 HPI HPI Details: SHANE RODRIGUEZ, is a 60 F who presents to the office today for the evaluation of Crohn's disease. Patient has a history of Crohn's disease first diagnosed approximately 15 years ago, though symptoms started approximately 20 years ago. Originally she was diagnosed with Crohn's disease of the colon and later she was diagnosed with Crohn's disease of colon and small bowel. She has not had any surgeries on her bowels. She is status post cholecystectomy at the age of 12. She was diagnosed with adult onset type 2 diabetes about 5 years ago. She has been struggling with her blood sugars. She is currently on Metformin and glipizide. She is having a lot of bloating, cramping and diarrhea. She also complains of of gastroesophageal reflux disease. She also complains of dysphagia and odynophagia. She is not suffering from any neuropathy , nephropathy, proteinuria or retinopathy from her diabetes that she knows of. Current medications: Stelara, omeprazole, immodium (helps for a day and then ineffective). Other attempted medications include humira (when first diagnosed, did not help), remicade (taken 2-4 years ago, had reaction during illness and additional steroid prescribed), periodic steroids helps with flare. ROS Const Constitutional: Positive for headache(s) Eyes Eyes: Positive for blurry vision and irritation ENT ENT: Positive for tinnitus, headache(s), difficulty swallowing and hoarseness Resp Respiratory: No cough or shortness of breath Cardio Cardiology: Positive for leg pain with exertion Gastro GI: Positive for abdominal pain, bloating, change in bowel habits, diarrhea, heartburn, difficulty swallowing and nausea/dyspepsia Genitourinary-Female: Positive for urinary frequency, urinary urgency and Vaginal Itching Musc Musculoskeletal: Positive for joint pain, back pain, joint swelling, muscle cramps, numbness, stiffness, tingling, Arthritis, sciatica, restless legs, leg pain at night and leg pain with exertion Skin Skin: Positive for dry skin and itchy eyes Neuro Neurology: Positive for headache(s), numbness, tingling and restless legs Psych Psychiatric: Positive for anxiety Endo Endocrine: Positive for heat intolerance, increased thirst/drinking and increased urine leakage Aller/Imm Allergy/Immunologic: Positive for itchy eyes Sadi/Lymp Hematologic/Lymphatic: Positive for easy bruising Exam Const General: cooperative and comfortable Nutritional Appearance: average body habitus and well nourished [facility] Head: normal to inspection Ears: hearing grossly normal bilaterally Nose: external nose normal Face and sinus: normal facial exam Mouth: oral mucosae normal Throat: posterior oropharynx normal Eyes General: appearance normal, both eyes and all related structures Neck Neck: normal visual inspection Chest Chest palpation & inspection: normal inspection of the chest and normal palpation of entire chest wall Resp Effort & Inspection: normal respiratory effort Auscultation: Bilateral: Clear to Auscultation Cardio Palpation: normal PMI Rate: regular rate Rhythm: regular rhythm GI Inspection: normal to inspection Auscultation: normal bowel sounds Percussion: normal to percussion Palpation: no hepatosplenomegaly Skin General: no rashes or lesions noted Neuro General: patient alert Extrem General: normal to inspection Psych Affect: normal affect Quality Reporting Tobacco Screening ([facility] 138) Smoking Status: Former smoker Assessment and Plan Assessment and Plan (1) Crohn disease: Status: Acute Orders: Orders: Comprehensive Metabolic Profil Today CRP Today CBC W/Diff, Automated Today Erythrocyte Sed Rate Today Plan - Dr. Aguilar Friend, DO: We will do biochemical analysis to try to assess the state of her Crohn's disease. She will also get a colonoscopy to evaluate patient's lower GI tract. Specifically in her small bowel and throughout the colon. We will do random biopsies throughout the colon. We will get antibody levels and trough levels to see if she is maintaining her Stelara prior to her next injection and to make sure she is not forming any antibodies since she has been on multiple other anti-TNF medicines in the past. (2) GERD (gastroesophageal reflux disease): Status: Chronic Qualifiers: Esophagitis presence: esophagitis presence not specified Qualified Code(s): K21.9 - Gastro-esophageal reflux disease without esophagitis Plan - Dr. Aguilar Friend, DO: We will get an upper endoscopy to evaluate her upper GI tract because she is having esophageal dysphagia and worsening GERD. We will look for signs of Anika esophagitis, hiatal hernia, erosive esophagitis or gastritis. Plan Details Other Medications: New: polyethylene glycol 3350 (Miralax) 17 grams PO Q10M 238 grams 0RF bisacodyl take 30 minutes prior to the prep
--- NOTE | 2021-01-24 09:06 | OP.EGD_ITS ---
Patient Name: Leslie Reynolds Procedure Date: 01/24/2021 8:22 AM Date of : 1960 Age: 60 Procedure: Upper GI endoscopy Indications: Esophageal dysphagia Providers: Jeff More DO Medicines: Propofol per Anesthesia Patient Profile: This is a 60 year old female. Refer to note in patient chart for documentation of history and physical. Patient has symptoms of chronic dysphagia and dysphagia with solids. The symptoms first began September. She is status post EGD for dilation three years ago. Complications: No immediate complications. Procedure: Pre-Anesthesia Assessment: - Prior to the procedure, a History and Physical was performed, and patient medications and allergies were reviewed. The patient is competent. The risks and benefits of the procedure and the sedation options and risks were discussed with the patient. All questions were answered and informed consent was obtained. Patient identification and proposed procedure were verified by the physician in the pre-procedure area. Mental Status Examination: alert and oriented. Airway Examination: normal oropharyngeal airway and neck mobility. Respiratory Examination: clear to auscultation. CV Examination: normal. Prophylactic Antibiotics: The patient does not require prophylactic antibiotics. Prior Anticoagulants: The patient has taken no previous anticoagulant or antiplatelet agents. ASA Grade Assessment: II - A patient with mild systemic disease. After reviewing the risks and benefits, the patient was deemed in satisfactory condition to undergo the procedure. The anesthesia plan was to use moderate sedation / analgesia (conscious sedation). Immediately prior to administration of medications, the patient was re-assessed for adequacy to receive sedatives. The heart rate, respiratory rate, oxygen saturations, blood pressure, adequacy of pulmonary ventilation, and response to care were monitored throughout the procedure. The physical status of the patient was re-assessed after the procedure. After obtaining informed consent, the endoscope was passed under direct vision. Throughout the procedure, the patient's blood pressure, pulse, and oxygen saturations were monitored continuously. The Endoscope was introduced through the mouth, and advanced to the second part of duodenum. The upper GI endoscopy was accomplished without difficulty. The patient tolerated the procedure well. Moderate Sedation: Moderate (conscious) sedation was administered by the endoscopy nurse and supervised by the endoscopist. The patient's oxygen saturation, heart rate, blood pressure and response to care were monitored. Total physician intraservice time was 15 minutes. Scope In: 8:37:59 AM Scope Out: 8:45:25 AM Total Procedure Duration Time 0 hours 7 minutes 26 seconds Findings: A moderate Schatzki ring was found in the distal esophagus. A guidewire was placed and the scope was withdrawn. Dilation was performed with a Savary dilator with mild resistance at 54 Fr. The dilation site was examined and showed complete resolution of luminal narrowing. Estimated blood loss was minimal. LA Grade A (one or more mucosal breaks less than 5 mm, not extending between tops of 2 mucosal folds) esophagitis with no bleeding was found 34 to 35 cm from the incisors. Biopsies were taken with a cold forceps for histology. Verification of patient identification for the specimen was done. Estimated blood loss was minimal. A medium-sized hiatal hernia was present. Patchy mild inflammation characterized by congestion (edema) and erosions was found in the gastric antrum. Biopsies were taken with a cold forceps for histology. Verification of patient identification for the specimen was done using the patient's name. Estimated blood loss: none. No gross lesions were noted in the second portion of the duodenum. Impression: - Moderate Schatzki ring. Dilated. - LA Grade A reflux esophagitis. Biopsied. - Medium-sized hiatal hernia. - Gastritis. Biopsied. - No gross lesions in the second portion of the duodenum. Recommendation: - Discharge patient to home. - Resume previous diet. - Continue present medications. - Await pathology results. - Repeat upper endoscopy in 1 year for surveillance. - Return to GI office in 2 weeks. Procedure Code(s): --- Professional --- 88207, Esophagogastroduodenoscopy, flexible, transoral; with insertion of guide wire followed by passage of dilator(s) through esophagus over guide wire G0500, Moderate sedation services provided by the same physician or other qualified health healthcare account manager performing a gastrointestinal endoscopic service that sedation supports, requiring the presence of an independent trained observer to assist in the monitoring of the patient's level of consciousness and physiological status; initial 15 minutes of intra-service time; patient age 5 years or older (additional time may be reported with 49831, as appropriate) CPT copyright 2017 [employer]. All rights reserved. The codes documented in this report are preliminary and upon mining technician review may be revised to meet current compliance requirements. Jeff More DO 01/24/2021 9:05:49 AM This report has been signed electronically. Number of Addenda: 1 Note Initiated On: 01/24/2021 8:22 AM Addendum Number: 1 Addendum Date: 12/05/2021 4:39:52 PM MAC was used instead of moderate sedation for this patient. Jeff More DO 12/05/2021 4:39:58 PM This report has been signed electronically.
--- NOTE | 2021-01-24 09:07 | OP.CCLET_ITS ---
12/05/2021 Zach Null [address] [place] [address] Re : Upper GI endoscopy procedure for Leslie Reynolds Dear Dr. Null This procedure was performed on January. My impressions and recommendations are as follows: Impressions : - Moderate Schatzki ring. Dilated. - LA Grade A reflux esophagitis. Biopsied. - Medium-sized hiatal hernia. - Gastritis. Biopsied. - No gross lesions in the second portion of the duodenum. Recommendations : - Discharge patient to home. - Resume previous diet. - Continue present medications. - Await pathology results. - Repeat upper endoscopy in 1 year for surveillance. - Return to GI office in 2 weeks. My findings are described in the full procedure note, which is enclosed. If I can be of further assistance, please feel free to contact me at . Sincerely, Jeff Friend, 01/24/2021 9:05:49 AM This report has been signed electronically.
--- NOTE | 2021-01-24 09:11 | OP.COLON_ITS ---
Patient Name: Leslie Reynolds Procedure Date: 01/24/2021 8:46 AM Date of : 1960 Age: 60 Procedure: Colonoscopy Indications: Crohn's disease of the small bowel and colon Providers: Jeff More DO Medicines: Propofol per Anesthesia Patient Profile: This is a 60 year old female. Refer to note in patient chart for documentation of history and physical. Patient has symptoms of chronic dysphagia and dysphagia with solids. The symptoms first began September. She is status post EGD for dilation three years ago. She is status post colonoscopy for biopsy five years ago. Last Colonoscopy: more than 3 years ago. Complications: No immediate complications. Procedure: Pre-Anesthesia Assessment: - Prior to the procedure, a History and Physical was performed, and patient medications and allergies were reviewed. The patient is competent. The risks and benefits of the procedure and the sedation options and risks were discussed with the patient. All questions were answered and informed consent was obtained. Patient identification and proposed procedure were verified by the physician in the pre-procedure area. Mental Status Examination: alert and oriented. Airway Examination: normal oropharyngeal airway and neck mobility. Respiratory Examination: clear to auscultation. CV Examination: normal. Prophylactic Antibiotics: The patient does not require prophylactic antibiotics. Prior Anticoagulants: The patient has taken no previous anticoagulant or antiplatelet agents. ASA Grade Assessment: II - A patient with mild systemic disease. After reviewing the risks and benefits, the patient was deemed in satisfactory condition to undergo the procedure. The anesthesia plan was to use moderate sedation / analgesia (conscious sedation). Immediately prior to administration of medications, the patient was re-assessed for adequacy to receive sedatives. The heart rate, respiratory rate, oxygen saturations, blood pressure, adequacy of pulmonary ventilation, and response to care were monitored throughout the procedure. The physical status of the patient was re-assessed after the procedure. After I obtained informed consent, the scope was passed under direct vision. Throughout the procedure, the patient's blood pressure, pulse, and oxygen saturations were monitored continuously. The Colonoscope was introduced through the anus and advanced to the terminal ileum. The colonoscopy was performed without difficulty. The patient tolerated the procedure well. The quality of the bowel preparation was fair. Moderate Sedation: Moderate (conscious) sedation was administered by the endoscopy nurse and supervised by the endoscopist. The patient's oxygen saturation, heart rate, blood pressure and response to care were monitored. Total physician intraservice time was 15 minutes. Scope In: 8:49:17 AM Scope Withdrawal Time 0 hours 7 minutes 24 seconds Scope Out: 9:00:39 AM Total Procedure Duration Time 0 hours 11 minutes 22 seconds Findings: The perianal and digital rectal examinations were normal. The Simple Endoscopic Score for Crohn's Disease was determined based on the endoscopic appearance of the mucosa in the following segments: - Ileum: Findings include aphthous ulcers less than 0.5 cm in size, less than 10% ulcerated surfaces, less than 50% of surfaces affected and a single narrowing that can be passed. Segment score: 4. - Right Colon: Findings include no ulcers present, no ulcerated surfaces, no affected surfaces and no narrowings. Segment score: 0. - Transverse Colon: Findings include no ulcers present, no ulcerated surfaces, no affected surfaces and no narrowings. Segment score: 0. - Left Colon: Findings include aphthous ulcers less than 0.5 cm in size, less than 10% ulcerated surfaces, less than 50% of surfaces affected and a single narrowing that can be passed. Segment score: 4. - Rectum: Findings include no ulcers present, no ulcerated surfaces and no affected surfaces. Segment score: 0. - Total SES-CD aggregate score: 8. Biopsies were taken with a cold forceps for histology. Verification of patient identification for the specimen was done. Estimated blood loss was minimal. Localized inflammation, mild in severity was found in the terminal ileum. Biopsies were taken with a cold forceps for histology. Verification of patient identification for the specimen was done. Estimated blood loss was minimal. Impression: - Preparation of the colon was fair. - Simple Endoscopic Score for Crohn's Disease: 8, mucosal inflammatory changes secondary to Crohn's disease. Biopsied. - Ileitis. Biopsied. Recommendation: - Discharge patient to home. - Resume regular diet. - Continue present medications. - Await pathology results. - Repeat colonoscopy in 5 years for surveillance. - Return to GI office in 1 week. Procedure Code(s): --- Professional --- 45555, Colonoscopy, flexible; with biopsy, single or multiple G0500, Moderate sedation services provided by the same physician or other qualified health patient care associate performing a gastrointestinal endoscopic service that sedation supports, requiring the presence of an independent trained observer to assist in the monitoring of the patient's level of consciousness and physiological status; initial 15 minutes of intra-service time; patient age 5 years or older (additional time may be reported with 44019, as appropriate) CPT copyright 2017 [employer]. All rights reserved. The codes documented in this report are preliminary and upon dressage judge review may be revised to meet current compliance requirements. Jeff More DO 01/24/2021 9:11:27 AM This report has been signed electronically. Number of Addenda: 1 Note Initiated On: 01/24/2021 8:46 AM Addendum Number: 1 Addendum Date: 12/05/2021 4:40:07 PM MAC was used instead of moderate sedation for this patient. Jeff More DO 12/05/2021 4:40:15 PM This report has been signed electronically.
--- NOTE | 2021-01-24 09:12 | OP.CCLET_ITS ---
12/05/2021 Zach Null [address] [place] [address] Re : Colonoscopy procedure for Leslie Reynolds Dear Dr. Null This procedure was performed on January. My impressions and recommendations are as follows: Impressions : - Preparation of the colon was fair. - Simple Endoscopic Score for Crohn's Disease: 8, mucosal inflammatory changes secondary to Crohn's disease. Biopsied. - Ileitis. Biopsied. Recommendations : - Discharge patient to home. - Resume regular diet. - Continue present medications. - Await pathology results. - Repeat colonoscopy in 5 years for surveillance. - Return to GI office in 1 week. My findings are described in the full procedure note, which is enclosed. If I can be of further assistance, please feel free to contact me at . Sincerely, Jeff More, 01/24/2021 9:11:27 AM This report has been signed electronically.
--- NOTE | 2021-01-24 10:20 | SUR.PHASEII ---
awaiting orders from Dr. More.
== END 2021-01-24 11:51 | disposition home or self-care (01) ==
LOC: EN 06:35 → AC 06:36
PROVIDERS: PCP Internal Medicine; Referring Provider Internal Medicine; Visit Provider Internal Medicine Gastroenterology
PROC: 0DJD8ZZ Inspection of Lower Intestinal Tract, Via Natural or Artificial Opening Endoscopic (ICD-10-PCS; CPT 45378; principal; 2021-01-24 07:40)
DX: K50.80 Crohn's disease of both small and large intestine without complications (principal); D12.4 Benign neoplasm of descending colon; K29.50 Unspecified chronic gastritis without bleeding; K44.9 Diaphragmatic hernia without obstruction or gangrene; R13.14 Dysphagia, pharyngoesophageal phase; K22.2 Esophageal obstruction; K21.00 Gastro-esophageal reflux disease with esophagitis, without bleeding; E11.9 Type 2 diabetes mellitus without complications; M06.9 Rheumatoid arthritis, unspecified; J45.909 Unspecified asthma, uncomplicated; K21.9 Gastro-esophageal reflux disease without esophagitis; F41.9 Anxiety disorder, unspecified; Z79.84 Long term (current) use of oral hypoglycemic drugs; Z79.899 Other long term (current) drug therapy; Z86.718 Personal history of other venous thrombosis and embolism; Z87.19 Personal history of other diseases of the digestive system; Z87.891 Personal history of nicotine dependence; Z90.49 Acquired absence of other specified parts of digestive tract
CPT/HCPCS: 43239; 43248; 45380; 82962; 88305; 88313; 88342; 94640; J7120; C1769; J2405

== ENCOUNTER 2021-05-08 11:04 | Outpatient (CLI) | payer BC, SELFPAY ==
[2021-05-08 12:15] LABS: Erythrocyte Sedimentation Rate 14 mm/hr (0-30)
[2021-05-08 12:17] LABS: Absolute Lymphocyte Count 1.47 X10^3/uL (0.83-4.51); Basophil# 0.04 X10^3/uL; Basophil% 0.6 % (0-1); Eosinophil# 0.16 X10^3/uL; Eosinophils% 2.6 % (0-5); Hematocrit 43.2 % (37-47); Hemoglobin 13.8 g/dL (12.0-15.0); Lymphocyte # 1.47 X10^3/ul (0.83-4.51); Lymphocyte % 23.8 % (19-41); Mean Corp Hgb Conc 31.9 g/dL (32-36); Mean Corpuscular Hgb 26.7 pg (27.0-32.0); Mean Corpuscular Volume 83.7 fL (81-99); Mean Platelet Vol. 9.9 fl (6.2-12.0); Monocyte# 0.44 X10^3/uL; Monocyte% 7.1 % (0-10); NRBC Flagged by Analyzer 0 % (0-5); Neutrophil # 4.04 X10^3/uL (2.7-7.7); Neutrophil % 65.4 % (47-70); Platelet Count 195 K/mm3 (150-450); RBC Distribution Width SD 42.6 fl (35.1-43.9); Red Blood Count 5.16 M/mm3 (4.2-5.4); White Blood Count 6.2 K/mm3 (4.4-11.0)
[2021-05-08 12:46] LABS: ALB/GLOB Ratio 0.9 RATIO (0.9-2.4); AST(SGOT) 33 U/L (15-37); Alanine Aminotransfer ALT/SGPT 44 U/L (13-56); Albumin, Serum 3.8 g/dL (3.2-5.0); Alkaline Phosphatase 88 U/L (45-117); Anion Gap 6 (5-15); BUN 12 mg/dL (7-18); BUN/Creat Ratio 14.9 RATIO (10-20); CRP < 2.90 mg/L (0.0-3.0); Calcium,Total 9.2 mg/dL (8.5-10.1); Chloride 102 mmol/L (98-107); Creatinine, Serum 0.81 mg/dL (0.55-1.02); EST Glomerular Filtration Rate 77 mL/min (>60); Est Glom Filt Rate - Afr Amer 93 mL/min (>60); Globulin 4.1 g/dL (2.2-4.2); Glucose 104 mg/dL (74-106); LDH 203 U/L (84-246); Potassium 3.4 mmol/L (3.5-5.1); Protein, Total 7.9 g/dL (6.4-8.2); Rubella IgG Reactive (Nonreactive); Sodium Level 137 mmol/L (136-145)
[2021-05-11 15:07] LABS: HEPATITIS B SURFACE AG Negative (Negative); Hepatitis A IgM Antibody Negative (Negative); Hepatitis B Core AB IgM Negative (Negative); QNTFERON TB Mitogen Value > 10.00 IU/mL (.); QNTFERON TB Nil Value 0.01 IU/mL (.); QNTFERON TB1+ Ag Value 0 IU/mL (.); QNTFERON TB2+ Ag Value 0 IU/mL (.)
[2021-05-11 17:20] LABS: B. pertussis IgG 1.86 index (0.00-0.94); Hep C Antibodies <0.1 s/co ratio (0.0-0.9); Mumps Antibody, IgM 0.81 AU (0.00-0.79); QNTIFERON TB Positive Criteria Negative (Negative); V-Zoster IgG (Immunity) 3266 index (Immune >165)
== END 2021-05-08 23:59 | disposition short-term general hospital (02) ==
LOC: LAB 11:07
PROVIDERS: PCP Internal Medicine; Visit Provider Internal Medicine Gastroenterology
DX: K50.10 Crohn's disease of large intestine without complications (principal)
CPT/HCPCS: 36415; 80053; 80074; 83615; 85025; 85652; 86140; 86480; 86735; 86762; 86787

== ENCOUNTER 2021-05-21 15:38 | Outpatient (CLI) | payer BC, SELFPAY ==
--- NOTE | 2021-05-21 15:51 | EKG12_ITS ---
Test Reason : PRE-OP Blood Pressure : / mmHG Vent. Rate : 087 BPM Atrial Rate : 087 BPM P-R Int : 138 ms QRS Dur : 102 ms QT Int : 366 ms P-R-T Axes : 053 005 020 degrees QTc Int : 440 ms Normal sinus rhythm Normal ECG Confirmed by NEEL MENDOZA, PARIS ([id number]), health editor MARIANA ALBA ([id number]) on 05/22/2021 11:50:01 AM Referred By: CHARMAINE BRONSON Confirmed By:PARIS SHAIKH MD
--- NOTE | 2021-05-21 16:05 | RAD_ITS ---
STUDY: X-RAY CHEST REASON FOR EXAM: Female, 60 years old. ENCOUNTER FOR PRE-OP RESP EXAM TECHNIQUE: Frontal and lateral views COMPARISON: 11/08/2019 FINDINGS: The lungs are clear and expanded. There is no demonstrated pleural abnormality. Normal size heart. Normal mediastinum and kelly. Normal visualized pulmonary arteries. Normal visualized aortic arch and descending thoracic aorta. Degenerative changes of the thoracic spine. Normal visualized ribs, clavicles, and shoulders. There is no demonstrated abnormality of the visualized soft tissue structures of the upper abdomen. RAD/Chest PA and Lateral IMPRESSION: Normal x-ray examination of the chest. Electronically Signed: Ranjan Maharaj DO at 16:41 EST Reading Location ID and State: [facility] / [place] Tel [phone], Service support ,
[2021-05-21 17:02] LABS: Hemoglobin A1c 7.4 % (3.8-5.6)
== END 2021-05-21 23:59 | disposition home or self-care (01) ==
PROVIDERS: PCP Internal Medicine; Visit Provider Orthopaedic Surgery
DX: Z01.811 Encounter for preprocedural respiratory examination (principal); E11.9 Type 2 diabetes mellitus without complications; Z01.810 Encounter for preprocedural cardiovascular examination
CPT/HCPCS: 36415; 71046; 83036; 93005

== ENCOUNTER → 2021-07-26 | Outpatient (CLI) | payer BC, SELFPAY ==
--- NOTE | 2021-07-26 07:00 | KNEE_PTH ---
PATIENT: SHANE RODRIGUEZ LOC: [facility] U#:[id number] AGE/SX: 60/F ROOM: RE07/26/[address]: Dr. Martín Pabon MD : 1960 BED: DIS: 07/26/2021 SPEC #: [id number] RECD: 07/26/21 14:59 STATUS: KAYCEE RESonya #: [id number] JAMI: 07/26/21 07:[address]: Martín Pabon DEPT: SURGICAL PATHOLOGY RECD BY: Judith Resendiz ENTERED: 07/29/21 08:33 SP TYPE: TOTAL KNEE OTHR DR: Dr. Zach Null MD [facility] Tissues: Knee, NOS Procedures: Decalcification bone/plaque Surgery Specimen Level IV HEADER OPERATION: Left total knee arthroplasty PRE-OP DIAGNOSIS: Primary osteoarthritis left knee TISSUE SUBMITTED: Left knee bone/tissue MICROSCOPIC DIAGNOSIS Bone and soft tissue, left knee, total knee replacement/resection: Pieces of bone with degenerative osteoarthritic changes. Fibroadipose tissue, fibroconnective tissue and reactive synovial tissue. SETH:samia 08/01/2021 MICROSCOPIC DESCRIPTION Slides are reviewed. GROSS DESCRIPTION Received is one container designated bone and soft tissue left knee. The specimen consists of multiple fragments of fall-yellow bone measuring in aggregate 10 x 10 x 3 cm. The femoral bone also shows central brown depression. Also in the specimen container are multiple fragments of yellow-white soft tissue measuring in aggregate 7 x 5 x 3 cm. A number of bony fragments contain articular surfaces consistent with tibial plateau and femoral condyle and displaying prominent osteophyte formation, eburnation, and bone erosion. [employer] sections are submitted in two cassettes as follows: 1??soft tissue, 2 - bone after decalcification. / SETH:samia 07/29/2021 TC:5 CPT: 95283, 63805
== END | disposition home or self-care (01) ==
LOC: LABSPEC 15:13
PROVIDERS: PCP Internal Medicine; Referring Provider Orthopaedic Surgery; Visit Provider Orthopaedic Surgery
DX: M17.12 Unilateral primary osteoarthritis, left knee (principal)
CPT/HCPCS: 88305; 88311

== ENCOUNTER → 2021-08-02 | Outpatient (CLI) | payer BC, SELFPAY ==
--- NOTE | 2021-08-02 14:31 | VDLE_ITS ---
Reason For Study: Swelling Procedure LEFT This is a venous duplex using B-mode, color GSV is normal. flow and spectral Doppler. CFV is compressible, spontaneous, phasic, Exam performed in department. competent, and demonstrates normal A preliminary report was called and/or faxed augmentation. to [facility]. FV is compressible, spontaneous, phasic, competent and demonstrates normal augmentation. POP V is compressible, spontaneous, phasic, competent and demonstrates normal augmentation. T/P Trunk is compressible. PTV is compressible. LT PerV is compressible. VL/Venous Duplex US, Unilateral Interpretation Summary Deep veins of the left lower extremity are patent and compressible segmentally. There is no evidence of left lower extremity deep vein thrombosis. Valvular competence appears intac t within the proximal deep venous system on the left . The left great saphenous vein appears patent a nd compressible segmentally. Ordering Physician: Sydney Holt Referring Physician: Zach Null M.D. Performed By: Tracie Damico RVT
== END | disposition home or self-care (01) ==
LOC: CVS 14:30
PROVIDERS: PCP Internal Medicine; Referring Provider Physician Assistant; Visit Provider Physician Assistant
DX: R22.42 Localized swelling, mass and lump, left lower limb (principal)
CPT/HCPCS: 93971

== ENCOUNTER 2021-09-10 13:00 | Outpatient (RCR) | payer BC, SELFPAY ==
--- NOTE | 2021-07-29 12:03 | HP.PTEVAL ---
Patient's Visit Information SHANE RODRIGUEZ is a 60 year old F referred to Physical Therapy by Dr. Martín Pabon MD with a diagnosis of Left TKR 07/26/21. Date of Evaluation: 07/29/21 Physical Therapist: Liya Comer DPT - Visit Plan Frequency: 2-3x /Week Duration: 4 Weeks Plan: Left TKR 07/26/21. HEP Given IE: Bolster Extn Stretch, quad set, glut set, heel slide supine and seated. - Subjective Left TKR Monday July 26, [address] Martín Pabon at the surgery center. Lives with who helps if she needs it- and her grandson is also able to help (6 years old). Laundry in the basement of a ranch style home with 1 step in from the garage. No problems getting in/out- has been going down backwards from the front door 3 steps. Removed bandage yesterday took a shower today- spoke to the surgeon's office today and told them about the bleeding- they suggested PT look at it today and advise. She reports the knee is really sore. Pain is located behind the knee and anterior knee. Some pain radiating into the pain- more dull and achy but does have some sharp pains in the knee. The foot is swollen. Worst in the last 24 hours: 8/10 Agg: movement, walking on it. Eases: elevation, ice, rest. Best: 4/10. Does not report N/T in the toes. No loss or change in bowel or bladder. Fully I prior to surgery- plans to get back to all of it. Sleep: disturbed- in bed- with a pillow under the knee. Work: long-term- currently off work- October 19 is return to work date but subject to change- stooping, bending, walking, standing- 8 hour shifts- 5 days a week. PMHx: HTN, DM Meds: blood thinners, morphine and oxycodone- will bring in other medication list next time. - Objective Posture: FH, RS- increased kyphosis- can correct with verbal cues but does not maintain. Gait: antalgic with decreased stance on left LE- with poor heel/toe pattern-back to evaluation room via w/c. Stairs: not tested at IE- but reports non recip and desc backwards at home HR/TR: able with UE A and weight shift SLS: weight shift but unable to SLS. Observation: no s/s of infection- very red and bruised. Girth: patella: 40 cm 6 above 55 cm Palpation: tender along medial and lateral joint line. ROM: 25-70 degrees without OP. Strength: SLR: min A from PT Flexion: 3 Extension: 8 Ankle: 5/5. Flex: HS: severe, Gastroc: severe. TUG Test: wheeled walker 48. WOMAC: 82 - Balance/Special Test Scores Lower Extremity Functional Score: 3 WOMAC Total Score: 85 WOMAC Percentatge: 11.4600 - Goals Goal 1:: Patient will be I with HEP and progression Goal Time Frame: 4-6 Weeks Goal 2:: Patient will ambulate >300 feet with a normalized gait pattern with LRD Goal Time Frame: 4-6 Weeks Goal 3:: Patient asc/Desc 8 recip with 1 HR and good technique Goal Time Frame: 4-6 Weeks Goal 4:: Patient will demo 0-120 degrees of ROM in the left knee Goal Time Frame: 4-6 Weeks Goal 5:: Patient will report 80% improvement Goal Time Frame: 4-6 Weeks - Rehabilitation Potential Physical Therapy Diagnosis: Patient presents with hypomobility- she has decreased ROM, strength, flex and muscular endurance s/p left TKR leading to poor posture and increased pain with ADL's Rehabilitation Potential: Good - Anticipated Interventions Patient/Client Instruction: Educate patient on: Benefits of Fitness Program Therapeutic Exercise to Include: Strength training, Endurance training, Balance training, Coordination, Agility training, Body mechanics, Postural training, Flexibilty training, Gait and locomotor training, Neuromotor development, Passive ROM, Active ROM, Dynamic Lumbar Stabilization For the Purpose of:: To improve muscle performance and motor function TENS: Yes Cryotherapy (ice pack, ice massage): Yes Thermo therapy (hot pack): Yes Ultrasound (thermal/non thermal): No Thank you for the opportunity to evaluate your patient. For Medicare and Medicare HMO plans, please review the plan of care and approve it. It will need to be FAXED BACK to us at [phone] for Medicare purposes. For Medicare only, by signing this I certify the plan of care. Please let me know if there are questions or concerns regarding this plan of care. Physician Signature: Date:
--- NOTE | 2021-09-10 13:17 | HP.PTDCSUM ---
It has been my pleasure to treat SHANE RODRIGUEZ referred by Dr. Martín Paobn MD, with the diagnosis of Left TKR 07/26/21 for a total of 10 visit(s). Discharge Date: Please see the following information for a summary of their discharge status. Subjective: Patient reports that she is not to bad- she has to keep up on the knee or it get stiff. 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 She feels that she can keep working on it at home- she is doing her exercises continually. L knee Pain Intensity (Out of 10): 0 % Improvement: 80 Objective/Function: Posture: fair throughout session Gait: antalgic with decreased stance on left LE Stairs: asc/desc 8 recip with poor control with descent HR/TR: able with UE A and weight shift SLS: weight shift but unable to SLS. Observation: no s/s of infection. Girth: patella: 37 cm 6 above 48 cm Palpation: tender along medial and lateral joint line. ROM: 15-100 degrees without OP. Strength: Flexion: 21 Extension: 25 Ankle: 5/5. Flex: HS: severe, Gastroc: severe. TUG Test: 8 seconds Goal 1:: Patient will be I with HEP and progression Goal Progress: Goal Met Goal 2:: Patient will ambulate >300 feet with a normalized gait pattern with LRD Goal Progress: Progressing Goal 3:: Patient asc/Desc 8 recip with 1 HR and good technique Goal Progress: Progressing Goal 4:: Patient will demo 0-120 degrees of ROM in the left knee Goal Progress: Progressing Goal 5:: Patient will report 80% improvement Goal Progress: Progressing Plan: 09/10/21: Discharge to I HEP. Left TKR 07/26/21 If there are questions or concerns regarding this patient's physical therapy, please feel free to call me at [phone]. Thank you for the referral of this patient. Sincerely, Liya Comer, CHARUT Balance/Gait/Functional tests - Balance/Special Test Scores Lower Extremity Functional Score: 3 WOMAC Total Score: 45 WOMAC Percentage: 53.1300
== END 2021-09-10 19:00 | disposition home or self-care (01) ==
LOC: PT 13:00
PROVIDERS: PCP Internal Medicine; Referring Provider Orthopaedic Surgery; Visit Provider Orthopaedic Surgery
DX: M17.12 Unilateral primary osteoarthritis, left knee (principal)
CPT/HCPCS: 97110; 97162; 97164

== ENCOUNTER 2022-08-11 09:07 | Emergency (ER) | payer OTHER, SELFPAY ==
[2022-08-11 09:08] VITALS: BP 135/73; PULSE 91; RESP 16; TEMP 36.5; O2SAT 97
[2022-08-11 09:29] VITALS: BMI 30.4
--- NOTE | 2022-08-11 10:40 | RAD_ITS ---
STUDY: X-RAY - UNILATERAL RIBS ( LEFT ) WITH CHEST REASON FOR EXAM: Female, 61 years old. Left rib pain following a fall. TECHNIQUE - RIBS: 4 view(s) of the ribs. TECHNIQUE - CHEST: Single PA view of the chest. COMPARISON: Comparison is made with prior chest radiograph dated May 21, 2021. FINDINGS - RIBS: Normal visualized ribs without a demonstrated fracture. FINDINGS - CHEST: There is elevation of the right hemidiaphragm. The lungs are clear. There is no demonstrated pleural abnormality. Normal size heart. Normal mediastinum and kelly. Normal visualized pulmonary arteries. Normal visualized aortic arch and descending thoracic aorta. There are diffuse degenerative changes of the visualized thoracic spine. Normal visualized ribs, clavicles, and shoulders. There is no demonstrated abnormality of the visualized soft tissue structures of the upper abdomen. RAD/Ribs Uni Min 3V w/PA Chest IMPRESSION: RIBS: Normal x-ray examination of the ribs. CHEST: Normal x-ray examination of the chest. Electronically Signed: Calvin Flores MD at 11:58 EDT ,
--- NOTE | 2022-08-11 10:41 | RAD_ITS ---
STUDY: X-RAY - PELVIS AND LEFT HIP REASON FOR EXAM: Female, 61 years old. Left hip pain following a fall. TECHNIQUE: 3 views of the pelvis and hip. COMPARISON: None. FINDINGS: There is a non-specific bowel gas pattern. Normal visualized soft tissue structures. There is narrowing with cortical sclerosis and osteophyte formation of the sacroiliac joint consistent with degenerative osteoarthritic changes. Normal bilateral superior and inferior pubic rami. Normal pubic symphysis. Normal bilateral ischial tuberosities. Normal visualized femoral head. Normal acetabulum. Normal hip joint. RAD/HIP, UNI W/ Pelvis 2-3 Views IMPRESSION: No acute abnormality is seen. Electronically Signed: Calvin Flores MD at 11:57 EDT ,
[2022-08-11 11:08] VITALS: RESP 16
--- NOTE | 2022-08-11 11:15 | RAD_ITS ---
STUDY: X-RAY - CERVICAL SPINE REASON FOR EXAM: Female, 61 years old. Injury/Pain TECHNIQUE: 3 view(s) of the cervical spine were obtained. COMPARISON: None FINDINGS: Normal anterior atlantoaxial articulation. Normal odontoid process. There is straightening of the normal cervical lordosis. There is multi-level endplate spondylosis. There is multi-level degenerative disc disease with multilevel disc space narrowing. Normal visualized intervertebral neuroforamina. There are atherosclerotic vascular calcifications of the carotid arteries. RAD/Cerv Spine 2 or 3 Views IMPRESSION: There is straightening of the normal cervical lordosis. Multilevel spondylosis and disc space narrowing. Electronically Signed: Calvin Flores MD at 11:59 EDT ,
--- NOTE | 2022-08-11 11:24 | ED.VIS.FALL ---
HPI HPI - Fall History of Present Illness Chief Complaint: Fall Informant: patient Occured/Mechanism Occurred: Today Mechanism/Context: Yes same level fall and Yes trip Pain/Injury Location: Left hip, low back, left ribs, and left neck Pain Location: neck, chest and back Quality of Pain: Stabbing Worsened by: Movement Relieved by: Rest Associated Symptoms Associated Symptoms: Negative for Parasthesias, Weakness, Loss of function, Inability to ambulate, Loss of consciousness or Amnesia Narrative Narrative: Patient presents after a fall that occurred today. Patient states she was cleaning a shower at work today when she tripped over a shower chair. Patient states she fell backwards. Patient states she hit her left hip, left chest, low back, and neck. Patient denies any head injury or loss of consciousness. Patient admits to some mild pain over her right knee. Patient describes her pain as stabbing. Patient states it is worse with any movement. Patient denies any paresthesias or weakness. [facility] Medical History Anxiety Asthma Back pain Back pain Bloody stools Bronchitis Chest pain Crohn disease Diabetes Diarrhea Dietary restriction Difficulty balancing Difficulty swallowing Diverticulitis DVT (deep venous thrombosis) Easy bruising Former smoker Gastric reflux High cholesterol History of arthritis History of Crohn's disease History of edema History of hiatal hernia History of hypertension History of pain when walking History of stress test History of ulceration Hx of psoriatic arthritis Hypertension Knee pain Leg cramps Low iron Restless legs Rheumatoid arthritis Shortness of breath on exertion Shoulder pain Stomach ulcer Syncope Wears dentures Wears glasses Home Medications amitriptyline 75 mg tablet 100 mg PO QHS MOOD 06/04/17 [History Last Taken 07/27/19] folic acid 1 mg tablet 2 mg PO DAILY@0800 SUPPLEMENT 06/04/17 [History Last Taken 07/28/19] glipizide 5 mg tablet, extended release 24 hr 5 mg PO DAILY DM 07/28/19 [History Last Taken 07/28/19] omeprazole 40 mg capsule,delayed release 40 mg PO DAILY GERD 07/28/19 [History Last Taken 01/24/21 05:30] pravastatin 20 mg tablet 20 mg PO QHS CHOLESTEROL 07/28/19 [History Last Taken 07/27/19] hydrochlorothiazide 12.5 mg capsule 12.5 mg PO DAILY 12/07/19 [History Last Taken Unknown] montelukast 10 mg tablet 10 mg PO QPM #90 tabs 09/18/20 [Rx Last Taken Unknown] promethazine 6.25 mg-codeine 10 mg/5 mL syrup 5 ml PO Q6H PRN cough 10 days #118 mL 02/07/21 [Rx Last Taken Unknown] ustekinumab 90 mg/mL subcutaneous syringe (Stelara) See Rx Instructions .Route .COMPLEX #1 mL 12/19/21 [Rx Last Taken Unknown] empagliflozin 10 mg tablet (Jardiance) 10 mg PO DAILY 12/30/21 [History Last Taken Unknown] albuterol sulfate 90 mcg/actuation aerosol inhaler 2 puff inhalation Q4H PRN shortness of breath or wheezing #8.5 grams 04/22/22 [Rx Last Taken Unknown] fluticasone furoate 200 mcg-vilanterol 25 mcg/dose inhalation powder (Breo Ellipta) 1 inh inhalation QDAY #60 ea 04/22/22 [Rx Last Taken Unknown] Allergy/AdvReac Type Severity Reaction Status Date / Time doxycycline Allergy Hives Verified 08/11/22 09:08 dyclonine Allergy Rash Verified 08/11/22 09:08 etodolac Allergy Rash Verified 08/11/22 09:08 Sulfa (Sulfonamide Allergy Rash Verified 08/11/22 09:08 Antibiotics) adhesive tape AdvReac Itching Verified 08/11/22 09:08 magnesium AdvReac Angioedema Verified 08/11/22 09:08 Family History (Reviewed 04/22/22 @ 08:53 by Anabelle Joiner NETBACKUP ADMINISTRATOR, NETBACKUP ADMINISTRATOR-C) Father Heart disease Brother Heart disease COPD (chronic obstructive pulmonary disease) Diabetes Mother Cancer Breast Diabetes Sister Diabetes Surgical History History of carpal tunnel surgery of left wrist History of carpal tunnel surgery of right wrist History of cholecystectomy History of esophagogastroduodenoscopy (EGD) History of knee replacement Hx of arthroscopy of left knee Hx of arthroscopy of right knee Hx of colonoscopy Hx of dilation and curettage Hx of hysterectomy Hx of tonsillectomy Social History Smoking Status: Former smoker quit date: 04/06/03 Tobacco: How many years used: 32 ROS ROS ED Constitutional Constitutional ED: Denies chills or fever(s) Eyes Eyes: Denies blurry vision or change in vision ENT ENT ED: Denies rhinorrhea or sore throat Cardiovascular Cardiovascular: Denies chest pain or palpitations Respiratory/Chest Respiratory/Chest: Denies cough or dyspnea Gastrointestinal Gastrointestinal: Denies nausea or vomiting Genitourinary Genitourinary ED: Denies dysuria or hematuria Musculoskeletal Musculoskeletal: Reports back pain and neck pain Integumentary Denies abscess or rash Neurologic Neurologic: Reports headache(s); Denies weakness Allergic/Immunologic Allergic/Immunologic ED: Denies mouth swelling or urticaria EXAM Physical Exam Const Vital Signs: 08/11/22 09:08 08/11/22 09:30 08/11/22 11:08 Temperature 97.7 F L Temperature Source Temporal Pulse Rate 91 Respiratory Rate 16 16 Respiratory Effort Normal Respiratory Depth Normal Respiratory Pattern Normal Blood Pressure 135/73 H Blood Pressure Mean 93 Pulse Ox 97 Oxygen Delivery Method Room Air Room Air Positive well nourished and well developed General Appearance ED: well developed HEENT Reports moist mucous membranes Neck supple and no JVD Chest Wall Chest Narrative: There is tenderness to palpation over the left lower ribs. There is no bony crepitance or step-off noted. Resp normal respiratory effort and clear to auscultation bilaterally Cardio regular rate, regular rhythm and no murmurs GI normal to inspection, nondistended, normoactive bowel sounds and non-tender Palpation: soft Back/Spine Back/Spine Narrative: There is mild tenderness of the left lumbar paraspinal muscles. There is no midline tenderness. There is no bony crepitance or step-off. There is tenderness of the left cervical paraspinal muscles. There is mild midline tenderness. There is no bony crepitance or step-off. Range of motion was limited in all motions of the cervical spine secondary to pain. Lumbar Spine / Lower Back: paraspinal muscle tenderness left Extremity normal to inspection General Extremety ED: Negative for edema or tenderness General Extremity: Negative for edema Neuro oriented x3, CN's II-XII intact bilaterally and no sensory deficits noted Sensorium / Orientation: alert Motor Exam: strength 5/5 throughout Psych mental status grossly normal Skin no rashes or lesions noted MDM MDM MDM Narrative Medical decision making narrative: Differential diagnosis includes rib fracture, lumbosacral strain, cervical spine fracture, left hip fracture, and contusions. X-rays of the cervical spine will be obtained to assess for cervical spine fracture. Trays of the left ribs will be obtained to assess for rib fracture. X-rays of the left hip and pelvis will be obtained to assess for hip fracture. Radiography Diagnostic Testing: Clinical Impression(s) from Imaging Studies Ribs w/Chest X-Ray 08/11/22 10:40 IMPRESSION: RIBS: Normal x-ray examination of the ribs. CHEST: Normal x-ray examination of the chest. Electronically Signed: Calvin Flores MD at 11:58 EDT , Hip/Pelvis X-Ray 08/11/22 10:41 IMPRESSION: No acute abnormality is seen. Electronically Signed: Calvin Flores MD at 11:57 EDT , Cervical Spine X-Ray 08/11/22 11:15 IMPRESSION: There is straightening of the normal cervical lordosis. Multilevel spondylosis and disc space narrowing. Electronically Signed: Calvin Flores MD at 11:59 EDT , X-rays of the cervical spine were obtained. There are 3 views. On my independent interpretation, there are some degenerative changes. There is no acute fracture or spondylolisthesis noted. Radiologist also interpreted the x-rays and agrees. X-rays of the left hip were obtained. There are 3 views. On my independent interpretation, there is no acute fracture or dislocation. There are some mild degenerative changes noted. Radiologist also interpreted the x-rays and agrees. X-rays of the left ribs were obtained. There are 5 views. On my independent interpretation, there is no acute fracture of the ribs. There is no pneumothorax. There is no pleural effusion. There is no acute cardiopulmonary process. Radiologist also interpreted the x-rays and agrees. Treatment and Re-Evaluation Narrative: Patient was advised of her findings. Patient was instructed use ice to the area. Patient was instructed to take Tylenol or ibuprofen as needed for pain. Patient was given a note for work for today. Patient was instructed to follow-up with her primary care physician or the [facility] in 5 to 7 days. Patient understood and was agreeable with plan. All questions were answered. Discharge Plan Triage Chief Complaint: Fall ED Provider: Aroldo Crandall Dx/Rx/DC Orders Clinical Impression: Contusion of left hip, initial encounter, Acute cervical myofascial strain, Chest wall contusion, Fall Instructions: ED Soft Tissue Contusion, ED Neck Sprain or Strain, ED Bruise, Rib Prescriptions: No Action hydrochlorothiazide 12.5 mg capsule 12.5 mg PO DAILY montelukast 10 mg tablet 10 mg PO QPM Qty: 90 3RF Jardiance 10 mg tablet 10 mg PO DAILY promethazine-codeine 6.25-10 mg/5 mL syrup 5 ml PO Q6H PRN (Reason: cough) 10 Days Qty: 118 2RF albuterol sulfate 90 mcg/actuation HFA aerosol inhaler 2 puff inhalation Q4H PRN (Reason: shortness of breath or wheezing) Qty: 8.5 6RF Rx Instructions: administer with spacer Breo Ellipta 200-25 mcg/dose blister with device 1 inh INHALATION QDAY Qty: 60 11RF Rx Instructions: after inhalation, rinse mouth with water and spit out; do not swallow amitriptyline 75 MG tablet 100 mg PO QHS folic acid 1 MG tablet 2 mg PO DAILY@0800 glipizide 5 MG tablet extended release 24hr 5 mg PO DAILY omeprazole 40 MG capsule,delayed release(DR/EC) 40 mg PO DAILY pravastatin 20 MG tablet 20 mg PO QHS Stelara 90 mg/mL syringe See Rx Instructions .ROUTE .COMPLEX Qty: 1 5RF Dose Instruction: INJECT 90 MG UNDER THE SKIN EVERY 8 WEEKS MAINTENANCE DOSE STARTING 8 WEEKS AFTER INTRAVENOUS INDUCTION DOSE Rx Instructions: INJECT 90 MG UNDER THE SKIN EVERY 8 WEEKS MAINTENANCE DOSE STARTING 8 WEEKS AFTER INTRAVENOUS INDUCTION DOSE Stand Alone Forms: Work Status Form Primary Care Provider: Zach Null Referrals: Zach Null MD [Primary Care Provider] - 3-5 Days [facility] [Non-Staff] - 3-5 Days Disposition Disposition: Home, Self Care Discharge Date/Time: 08/11/22 12:54
== END 2022-08-11 12:54 | disposition home or self-care (01) ==
PROVIDERS: Emergency Provider Emergency Medicine; PCP Internal Medicine; Visit Provider Emergency Medicine
DX: S70.02XA Contusion of left hip, initial encounter (principal); E11.9 Type 2 diabetes mellitus without complications; Z87.891 Personal history of nicotine dependence; I10 Essential (primary) hypertension; S20.20XA Contusion of thorax, unspecified, initial encounter; S16.1XXA Strain of muscle, fascia and tendon at neck level, initial encounter; E78.00 Pure hypercholesterolemia, unspecified; W01.0XXA Fall on same level from slipping, tripping and stumbling without subsequent striking against object, initial encounter
CPT/HCPCS: 71101; 72040; 73502; 99282

== ENCOUNTER → 2022-08-15 | Outpatient (CLI) | payer OTHER, SELFPAY ==
[2022-08-15 16:28] LABS: Absolute Lymphocyte Count 1.68 X10^3/uL (0.83-4.51); Basophil# 0.05 X10^3/uL; Basophil% 0.8 % (0-1); Eosinophils% 3.1 % (0-5); Hematocrit 43.1 % (37-47); Hemoglobin 13.1 g/dL (12.0-15.0); Lymphocyte # 1.68 X10^3/ul (0.83-4.51); Lymphocyte % 26.4 % (19-41); Mean Corp Hgb Conc 30.4 g/dL (32-36); Mean Corpuscular Hgb 24.8 pg (27.0-32.0); Mean Corpuscular Volume 81.5 fL (81-99); Mean Platelet Vol. 9.8 fl (6.2-12.0); Monocyte# 0.41 X10^3/uL; Monocyte% 6.4 % (0-10); NRBC Flagged by Analyzer 0 % (0-5); Neutrophil # 4.01 X10^3/uL (2.7-7.7); Platelet Count 225 K/mm3 (150-450); RBC Distribution Width CV 15.2 % (11.6-14.6); RBC Distribution Width SD 45.5 fl (35.1-43.9); Red Blood Count 5.29 M/mm3 (4.2-5.4); White Blood Count 6.4 K/mm3 (4.4-11.0)
[2022-08-15 17:09] LABS: Erythrocyte Sedimentation Rate 15 mm/hr (0-30)
[2022-08-15 17:41] LABS: ALB/GLOB Ratio 0.9 RATIO (0.9-2.4); AST(SGOT) 30 U/L (15-37); Alanine Aminotransfer ALT/SGPT 39 U/L (13-56); Albumin, Serum 3.7 g/dL (3.2-5.0); Alkaline Phosphatase 114 U/L (45-117); Anion Gap 6 (5-15); BUN 15 mg/dL (7-18); BUN/Creat Ratio 18.5 RATIO (10-20); CRP < 2.90 mg/L (0.0-3.0); Calcium,Total 9.2 mg/dL (8.5-10.1); Chloride 103 mmol/L (98-107); Creatinine, Serum 0.81 mg/dL (0.55-1.02); EST Glomerular Filtration Rate 76 mL/min (>60); Est Glom Filt Rate - Afr Amer 92 mL/min (>60); Globulin 4.2 g/dL (2.2-4.2); Glucose 142 mg/dL (74-106); Potassium 3.2 mmol/L (3.5-5.1); Protein, Total 7.9 g/dL (6.4-8.2); Sodium Level 138 mmol/L (136-145)
== END | disposition home or self-care (01) ==
PROVIDERS: PCP Internal Medicine; Referring Provider Nurse Practitioner Adult Health; Visit Provider Nurse Practitioner Adult Health
DX: K50.10 Crohn's disease of large intestine without complications (principal)
CPT/HCPCS: 80053; 85025; 85652; 86140; 86706

== ENCOUNTER → 2022-08-19 | Outpatient (CLI) | payer OTHER, SELFPAY ==
[2022-08-27 20:08] LABS: Calprotectin, Stool 42 ug/g (0-120)
== END | disposition home or self-care (01) ==
LOC: LABSPEC 09:41
PROVIDERS: PCP Internal Medicine; Referring Provider Nurse Practitioner Adult Health; Visit Provider Nurse Practitioner Adult Health
DX: K50.10 Crohn's disease of large intestine without complications (principal)
CPT/HCPCS: 83630; 83993

== ENCOUNTER 2022-11-13 17:30 | Outpatient (RCR) | payer OTHER, SELFPAY ==
--- NOTE | 2022-10-14 17:50 | HP.PTEVAL_ITS ---
Patient's Visit Information Visit Information Visit Information: SHANE RODRIGUEZ is a 61 year old F referred to Physical Therapy by Dr. Zach Null MD with a diagnosis of dysequilibrium and falls. Date of Evaluation: 10/14/22 Physical Therapist: Aroldo Main, CHARUT, OCS, CSCS Visit Plan Frequency: 2x /Week Duration: 4-6 Weeks Plan: 2x/week for 4-6 weeks for... monitor knee ROM for improvements and work on this inn PT teach gastroc stretch for HEP teach vestibular balance ex and weight shifting to HEP teach hip and core and general strength program to HEP Subjective Subjective: I have trouble with my balance. I have fallen quite a few times. Latest fall was 2 weeks ago at home stepping over a small wall at flower bed and caught foot. Also falls with LOB moving. This has been happening for a little over a year. not sure why. No spinning. Has tingly numbness in feet intermittently. No consistent pain outside of knees (L TKA). Feet get needles sharply now and then. Not sure why. Sleep is OK. On sleeping meds. Has FM. 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 Hobbies: None, gardening was but can't do that as it is hard on back and legs. Relaxes after work and takes care of 7 yo grandson. Exercises: no Basic ADLs are OK at home. Objective Objective: Walks into PT I with stiff gait and slightly neuropathic with avoiding weight shifts. Trasnfers I, limited by knee ROM needing UE. Steps are reciprocal up with R knee pain and only using L to descend due to limited knee ROM. hard to lift legs real high in walking due to knee rom deificts and tightness in gastroc which is max and 0 DF actively. HS and quads also tight moderatley. R knee 75 and L 90, both at -3 extension. Hip AROM WFL extension limited to 5 degree B. ankle AROM within funcitonal limits outside of gastroc tightness. strength hips abd and ext 3 and flexion 3+. Knee strength 4- B ext adn flexion. ankle strength 4- B. coordination to reciprocal toe and heel tap shows mild deficits. Gross light touch in LE is WFL but at deficit and feels tingly and numby with palpation to feet. reflexes 2/3 in patella and achilles without clonus. pt admits to having trouble remembering things in the last number of years. Balance/Special Test Scores Functional Gait Assessment Score: 26 % Disability: 13.3400 CATSIB Score (Max score 120 seconds): 120 Lower Extremity Functional Score: 41 Goals Goal 1:: I appropriate HEP for hip and core strength, ankle stretching, vestibul ar baalnce and knee ROM Goal Time Frame: 4-6 Weeks Goal 2:: FGA Goal Time Frame: 4-6 Weeks Goal 3:: Pt feel balance 50% improved overall and confident Goal Time Frame: 4-6 Weeks Goal 4:: Able to resume gardening with balance. Goal Time Frame: 4-6 Weeks Goal 5:: 61 LEFS Goal Time Frame: 4-6 Weeks Rehabilitation Potential Physical Therapy Diagnosis: Balance deficits from weakness hips, limited ROM knees, tightness ankles and vestibular deficits/neuropathy. Rehabilitation Potential: Fair Anticipated Interventions Patient/Client Instruction: Educate patient on: Condition and Plan of Care For the Purpose of:: To increase ROM, To improve nutrient delivery to tissue, To improve muscle performance and motor function, To increase tolerance to activity/condition/position and To improve ability of physical actions for home/community/work/leisure Therapeutic Exercise to Include: Strength training, Balance training, Flexibilty training, Gait and locomotor training, Passive ROM and Active ROM For the Purpose of:: To increase ROM, To improve nutrient delivery to tissue, To improve muscle performance and motor function, To increase tolerance to activity/condition/position, To improve ability of physical actions for home/community/work/leisure and To improve gait and locomotor functions Text: Thank you for the opportunity to evaluate your patient. For Medicare and Medicare HMO plans, please review the plan of care and approve it. It will need to be FAXED BACK to us at [phone] for Medicare purposes. For Medicare only, by signing this I certify the plan of care. Please let me know if there are questions or concerns regarding this plan of care. Physician Signature: Date:
--- NOTE | 2022-11-13 17:47 | HP.PTDCSUM ---
Discharge Summary D/C summary: It has been my pleasure to treat SHANE RODRIGUEZ referred by Dr. Zach Null MD, with the diagnosis of dysequilibrium and falls for a total of 7 visit(s). Discharge Date: 11/13/22 Please see the following information for a summary of their discharge status. Subjective Subjective: Feels like she is improving, not veering like she used to. Legs feel stronger. Doing home [id number] without a problem. No falls. No f/u with doctor. Pain left LB: Pain Intensity (Out of 10): 0 Overall Improvement % Improvement: 50 Objective Objective/Function: FGA is +2, Pt feeling 50% better and is safe walking today, R knee hard to lola on steps descneding without rail due to pain but otherwise did real well today. Goals Goal 1:: I appropriate HEP for hip and core strength, ankle stretching, vestibular baalnce and knee ROM Goal Progress: Goal Met Goal 2:: FGA Goal Progress: Goal Met Goal 3:: Pt feel balance 50% improved overall and confident Goal Progress: 50% Goal 4:: Able to resume gardening with balance. Goal Progress: avoiding sun. But a littl Goal 5:: 61 LEFS Goal Progress: Not Progressing Plan Plan: d/c to HEP D/C Information d/c sentence: If there are questions or concerns regarding this patient's physical therapy, please feel free to call me at [phone]. Thank you for the referral of this patient. Sincerely, Aroldo Main, DPT, OCS, CSCS Balance/Gait/Functional tests Balance/Special Test Scores Functional Gait Assessment Score: 28 % Disability: 6.6700 CATSIB Score (Max score 120 seconds): 120 Lower Extremity Functional Score: 26
== END 2022-11-13 19:00 | disposition home or self-care (01) ==
LOC: PT 17:30
PROVIDERS: PCP Internal Medicine; Referring Provider Internal Medicine; Visit Provider Internal Medicine
DX: R42 Dizziness and giddiness (principal); Z91.81 History of falling
CPT/HCPCS: 97110; 97162; 97164

== ENCOUNTER → 2022-11-18 | Outpatient (CLI) | payer SELFPAY ==
[2022-11-18 18:19] LABS: Hepatitis B Surface Antigen Non-Reactive (Nonreactive)
== END | disposition home or self-care (01) ==
LOC: LAB 16:15
PROVIDERS: PCP Internal Medicine
DX: Z00.00 Encounter for general adult medical examination without abnormal findings (principal)
CPT/HCPCS: 36415; 87340

== ENCOUNTER → 2023-01-02 | Outpatient (CLI) | payer OTHER, SELFPAY ==
[2023-01-02 09:38] LABS: Anion Gap 4 (5-15); BUN 13 mg/dL (7-18); BUN/Creat Ratio 17.7 RATIO (10-20); Calcium,Total 9.1 mg/dL (8.5-10.1); Chloride 102 mmol/L (98-107); Cholesterol 137 mg/dL (200); Creatinine, Serum 0.73 mg/dL (0.55-1.02); EST Glomerular Filtration Rate 85 mL/min (>60); Est Glom Filt Rate - Afr Amer 103 mL/min (>60); Glucose 145 mg/dL (74-106); High Density Lipoprotein 48 mg/dL; Potassium 3.6 mmol/L (3.5-5.1); Sodium Level 138 mmol/L (136-145); Triglycerides 175 mg/dL; Very Low Density Lipoprotein 35 mg/dL (5-40)
== END | disposition home or self-care (01) ==
LOC: LAB 08:18
PROVIDERS: PCP Internal Medicine; Referring Provider Internal Medicine; Visit Provider Internal Medicine
DX: E11.40 Type 2 diabetes mellitus with diabetic neuropathy, unspecified (principal)
CPT/HCPCS: 36415; 80048; 80061; 83036

== ENCOUNTER 2023-02-01 13:49 | Emergency (ER) | payer OTHER, SELFPAY ==
[2023-02-01 13:50] VITALS: BP 161/77; PULSE 106; RESP 16; TEMP 35.5; O2SAT 98; BMI 26.9
--- NOTE | 2023-02-01 14:24 | EDS_ITS ---
HPI HPI - Fall History of Present Illness Chief Complaint: Head Injury Informant: patient Occured/Mechanism Occurred: Today Fall down steps #: 2 Pain/Injury Location: Occiput, left hip, left knee Pain Location: head and lower extremity Quality of Pain: Aching and Burning Worsened by: Nothing Relieved by: Nothing Associated Symptoms Associated Symptoms: Negative for Parasthesias, Weakness, Loss of function, Inability to ambulate, Loss of consciousness or Amnesia Narrative Narrative: Patient presents after a fall that occurred today. Patient fell off of a stepladder. Patient fell approximately 2 steps. Patient hit the back of her head. Patient also complains of pain in her left hip and left knee. Patient describes her pain as aching and burning. Patient states nothing makes it better nothing makes it worse. Patient denies any loss of consciousness. Patient states her last tetanus was less than 5 years ago. Patient admits to some nausea but denies any vomiting. Patient also admits to some pain into her neck. Tetanus Immunization: <5 years PFSH [facility] Medical History Anxiety Asthma Back pain Back pain Bloody stools Bronchitis Chest pain Crohn disease Diabetes Diarrhea Dietary restriction Difficulty balancing Difficulty swallowing Diverticulitis DVT (deep venous thrombosis) Easy bruising Former smoker Gastric reflux High cholesterol History of arthritis History of Crohn's disease History of edema History of hiatal hernia History of hypertension History of pain when walking History of stress test History of ulceration Hx of psoriatic arthritis Hypertension Knee pain Leg cramps Low iron Restless legs Rheumatoid arthritis Shortness of breath on exertion Shoulder pain Stomach ulcer Syncope Wears dentures Wears glasses Home Medications amitriptyline 75 mg tablet 100 mg PO QHS MOOD 06/04/17 [History Last Taken 07/27/19] folic acid 1 mg tablet 2 mg PO DAILY@0800 SUPPLEMENT 06/04/17 [History Last Taken 07/28/19] glipizide 5 mg tablet, extended release 24 hr 5 mg PO DAILY DM 07/28/19 [History Last Taken 07/28/19] omeprazole 40 mg capsule,delayed release 40 mg PO DAILY GERD 07/28/19 [History Last Taken 01/24/21 05:30] pravastatin 20 mg tablet 20 mg PO QHS CHOLESTEROL 07/28/19 [History Last Taken 07/27/19] hydrochlorothiazide 12.5 mg capsule 12.5 mg PO DAILY 12/07/19 [History Last Taken Unknown] montelukast 10 mg tablet 10 mg PO QPM #90 tabs 09/18/20 [Rx Last Taken Unknown] empagliflozin 10 mg tablet (Jardiance) 10 mg PO DAILY 12/30/21 [History Last Taken Unknown] albuterol sulfate 90 mcg/actuation aerosol inhaler 2 puff inhalation Q4H PRN shortness of breath or wheezing #8.5 grams 04/22/22 [Rx Last Taken Unknown] fluticasone furoate 200 mcg-vilanterol 25 mcg/dose inhalation powder (Breo Ellipta) 1 inh inhalation QDAY #60 ea 04/22/22 [Rx Last Taken Unknown] ustekinumab 90 mg/mL subcutaneous syringe (ScanDigitallara) See Rx Instructions .Route .COMPLEX #1 mL 10/24/22 [Rx Last Taken Unknown] atorvastatin 10 mg tablet 10 mg PO DAILY 02/01/23 [History Last Taken Unknown] lisinopril 5 mg tablet 5 mg PO DAILY 02/01/23 [History Last Taken Unknown] potassium chloride 8 mEq capsule,extended release 8 meq PO DAILY 02/01/23 [History Last Taken Unknown] Allergy/AdvReac Type Severity Reaction Status Date / Time doxycycline Allergy Hives Verified 02/01/23 14:07 dyclonine Allergy Rash Verified 02/01/23 14:07 etodolac Allergy Rash Verified 02/01/23 14:07 Sulfa (Sulfonamide Allergy Rash Verified 02/01/23 14:07 Antibiotics) adhesive tape AdvReac Itching Verified 02/01/23 14:07 magnesium AdvReac Angioedema Verified 02/01/23 14:07 Family History Father Heart disease Brother Heart disease COPD (chronic obstructive pulmonary disease) Diabetes Mother Cancer Breast Diabetes Sister Diabetes Surgical History History of carpal tunnel surgery of left wrist History of carpal tunnel surgery of right wrist History of cholecystectomy History of esophagogastroduodenoscopy (EGD) History of knee replacement Hx of arthroscopy of left knee Hx of arthroscopy of right knee Hx of colonoscopy Hx of dilation and curettage Hx of hysterectomy Hx of tonsillectomy Social History household members: spouse housing: house Smoking Status: Former smoker quit date: 04/06/03 Tobacco: How many years used: 32 ROS ROS ED Constitutional Constitutional ED: Denies chills or fever(s) Eyes Eyes: Denies blurry vision or change in vision ENT ENT ED: Denies rhinorrhea or sore throat Cardiovascular Cardiovascular: Denies chest pain or palpitations Respiratory/Chest Respiratory/Chest: Denies cough or dyspnea Gastrointestinal Gastrointestinal: Reports nausea; Denies vomiting Genitourinary Genitourinary ED: Denies dysuria or hematuria Musculoskeletal Musculoskeletal: Reports neck pain; Denies back pain Integumentary Denies abscess or rash Neurologic Neurologic: Reports headache(s); Denies weakness Allergic/Immunologic Allergic/Immunologic ED: Denies mouth swelling or urticaria EXAM Physical Exam Const Vital Signs: 02/01/23 13:50 02/01/23 14:03 Temperature 96 F L Temperature Source Temporal Pulse Rate 106 H Respiratory Rate 16 Respiratory Effort Normal Respiratory Depth Normal Respiratory Pattern Normal Blood Pressure 161/77 H Blood Pressure Mean 105 Pulse Ox 98 Oxygen Delivery Method Room Air Room Air Positive well nourished and well developed General Appearance ED: well developed and NAD HEENT HEENT Narrative: There is a 8 cm full-thickness linear laceration over the occipital scalp. There is mild gapping of the wound margins. There is no bony crepitance or step-off. There is no active bleeding noted. Neck full ROM and supple Resp normal respiratory effort and clear to auscultation bilaterally Cardio regular rate and regular rhythm GI non-tender and non-distended Palpation: soft Extremity Extremity Narrative: There is mild tenderness of the anterior aspect of the left knee. There is no edema or ecchymosis. There is no bony crepitance or step-off noted. Range of motion was slightly limited in flexion extension of the left knee secondary to pain. Strength is 5/5 bilaterally in the lower extremities. There are no sensory deficits noted. There is no pain over the left hip. There is no pain with internal and external rotation of the left hip. Neuro oriented x3, CN's II-XII intact bilaterally, moves all extremities, no focal motor deficits and no sensory deficits noted Junior Coma Scale: document GCS findings Spontaneous Obeys Commands Oriented 15 Sensorium / Orientation: alert Motor Exam: strength 5/5 throughout Psych mental status grossly normal Skin Trauma: laceration linear, No actively bleeding, No pulsatile bleeding, No fo reign body present and involves subcutaneous tissue MDM MDM MDM Narrative Medical decision making narrative: Differential diagnosis includes closed head injury, intracranial bleeding, scalp laceration, left knee fracture, left knee contusion, and left hip contusion. X- rays of the left knee will be obtained to assess for fracture. CT scan of the brain will be obtained to assess for intracranial bleeding. Radiography Diagnostic Testing: Clinical Impression(s) from Imaging Studies Brain CT 02/01/23 14:29 IMPRESSION: Negative head/brain CT without intravenous contrast. Electronically Signed: Meng Cabezas MD at 15:05 EDT , Knee X-Ray 02/01/23 14:50 IMPRESSION: No acute findings in the left knee. Electronically Signed: Meng Cabezas MD at 15:16 EDT , CT scan of the brain was obtained. There is no acute intracranial abnormality. This was interpreted by the radiologist and was also independently reviewed by myself. X-rays of the left knee were obtained. There are 4 views. On my independent interpretation, there is no acute fracture. The prosthesis is in place. Radiologist also interpreted the x-rays and agrees. Treatment and Re-Evaluation Narrative: The wound was cleaned and irrigated with copious amounts normal saline. The wound was anesthetized with 1% lidocaine with epinephrine. The wound was closed with 10 yessi. Patient tolerated the procedure well. Bacitracin dressing was applied. Patient was advised of her findings. Patient was instructed to take Tylenol or ibuprofen as needed for pain. Patient was instructed to keep the wound clean and dry. Patient was instructed to follow-up with her primary care physician in 7 to 10 days for wound recheck and staple removal. Patient understood and was agreeable with the plan. All questions were answered. Procedures Lacerations Occipital scalp: Length: 8 cm Depth: Sub Q Shape: Linear Prep: Sterile Conditions and Chlorhexadine Laceration repair: Irrigated, Lidocaine with epi, Local and Wound explored Irrigated (ml): 150 Number of Sutures/Yessi: 10 Suture Information: - (Yessi) Discharge Plan Triage Chief Complaint: Head Injury Other Complaint: Laceration ED Provider: Aroldo Crandall Dx/Rx/DC Orders Clinical Impression: Laceration of occipital scalp, Fall, Contusion of left knee, initial encounter Instructions: ED Head Injury (Adult), ED Laceration Scalp Stitches or Yessi Prescriptions: No Action hydrochlorothiazide 12.5 mg capsule 12.5 mg PO DAILY montelukast 10 mg tablet 10 mg PO QPM Qty: 90 3RF Jardiance 10 mg tablet 10 mg PO DAILY albuterol sulfate 90 mcg/actuation HFA aerosol inhaler 2 puff inhalation Q4H PRN (Reason: shortness of breath or wheezing) Qty: 8.5 6RF Rx Instructions: administer with spacer Breo Ellipta 200-25 mcg/dose blister with device 1 inh INHALATION QDAY Qty: 60 11RF Rx Instructions: after inhalation, rinse mouth with water and spit out; do not swallow amitriptyline 75 MG tablet 100 mg PO QHS folic acid 1 MG tablet 2 mg PO DAILY@0800 glipizide 5 MG tablet extended release 24hr 5 mg PO DAILY omeprazole 40 MG capsule,delayed release(DR/EC) 40 mg PO DAILY pravastatin 20 MG tablet 20 mg PO QHS atorvastatin 10 mg tablet 10 mg PO DAILY Patient Comments: Take 1 tablet by mouthidaily at bedtime. For cholesterol. lisinopril 5 mg tablet 5 mg PO DAILY Patient Comments: TAKE 1 TABLET BY MOUTHCONCE DAILY potassium chloride 8 mEq capsule, extended release 8 meq PO DAILY Patient Comments: Take 1 capsule by mouthndaily with breakfast. Stelara 90 mg/mL syringe See Rx Instructions .ROUTE .COMPLEX Qty: 1 12RF Dose Instruction: INJECT 90 MG UNDER THE SKIN EVERY 8 WEEKS MAINTENANCE DOSE STARTING 8 WEEKS AFTER INTRAVENOUS INDUCTION DOSE Rx Instructions: INJECT 90 MG UNDER THE SKIN EVERY 4 weeks Primary Care Provider: Zach Null Referrals: Zach Null MD [Primary Care Provider] - 7 Days for suture removal Disposition Disposition: Home, Self Care
--- NOTE | 2023-02-01 14:29 | CT_ITS ---
EXAM: CT HEAD WITHOUT INTRAVENOUS CONTRAST CLINICAL INDICATION: Head injury TECHNIQUE: Multiple axial images were obtained of the head without intravenous contrast. This CT exam was performed using one or more of the following dose reduction techniques: automated exposure control, adjustment of the mA and/or kV according to patient size, and/or use of iterative reconstruction technique. RADIATION DOSE: CTDIvol = 44.99 mGy, DLP = 745.49 mGy-cm COMPARISON: No relevant prior studies available. FINDINGS: BRAIN AND EXTRA-AXIAL SPACES: Unremarkable. No intra- or extra-axial hemorrhage. No evidence of acute infarct. No intracranial mass or mass effect. There is preservation of the thorpe/white matter interface. Posterior fossa structures are unremarkable. Ventricles are appropriate for age. No hydrocephalus. Basal cisterns are patent. BONES/JOINTS: Unremarkable. No discrete lytic or blastic abnormalities. SINUSES: Unremarkable as visualized. Clear. MASTOID AIR CELLS: Unremarkable. Clear. ORBITS: Visualized globes, extraocular muscles, optic nerves and retrobulbar fat appear unremarkable. CT/Brain/Head without Contrast IMPRESSION: Negative head/brain CT without intravenous contrast. Electronically Signed: Meng Cabezas MD at 15:05 EDT ,
[2023-02-01] MEDS: HYDROcodone Bitartrate/Apap 5/325 Tablet PO (14:39)
[2023-02-01] MEDS: Lidocaine 1% /Epi 1:100 (20ml) 20 ML Vial INFILT (14:39)
--- NOTE | 2023-02-01 14:50 | RAD_ITS ---
EXAM: XR LEFT KNEE COMPLETE, 4 OR MORE VIEWS CLINICAL INDICATION: Injury/Pain TECHNIQUE: Four or more views of the left knee. COMPARISON: No relevant prior studies available. FINDINGS: BONES/JOINTS: Total left knee arthroplasty. No acute fracture. No subluxation. Normal alignment. No sclerotic or destructive changes observed. SOFT TISSUES: Unremarkable. No soft tissue swelling or gas. No radiopaque foreign body. RAD/Knee 4 or More Views IMPRESSION: No acute findings in the left knee. Electronically Signed: Meng Cabezas MD at 15:16 EDT ,
== END 2023-02-01 16:15 | disposition home or self-care (01) ==
PROVIDERS: Emergency Provider Emergency Medicine; PCP Internal Medicine; Visit Provider Emergency Medicine
DX: S01.01XA Laceration without foreign body of scalp, initial encounter (principal); E11.9 Type 2 diabetes mellitus without complications; E78.00 Pure hypercholesterolemia, unspecified; W11.XXXA Fall on and from ladder, initial encounter; S80.02XA Contusion of left knee, initial encounter; I10 Essential (primary) hypertension; Z79.84 Long term (current) use of oral hypoglycemic drugs; Z79.899 Other long term (current) drug therapy; Z87.891 Personal history of nicotine dependence
CPT/HCPCS: 12004; 70450; 73564; 99284

== ENCOUNTER → 2023-04-14 | Outpatient (CLI) | payer OTHER, SELFPAY ==
--- NOTE | 2023-04-14 15:34 | BI_ITS ---
MAMMOGRAPHY - BILATERAL SCREENING REASON FOR EXAM: Female, 62 years old. Routine annual screening examination. PERTINENT HISTORY: Mother with breast cancer. Aunts with breast cancer. TECHNIQUE: Digital bilateral breast praveena (3D mammographic acquisition) in the CC and MLO projections. 2-D mediolateral oblique (MLO) and craniocaudad (CC) views of both breasts were obtained. CAD: Full Field Digital Mammography with Computer Added Detection was performed. COMPARISON: Comparison is made with prior outside examination dated October 16, 2020. FINDINGS: Breast Composition: There are scattered areas of fibroglandular density. There are no dominant masses or suspicious calcifications. No other significant abnormalities are identified. There has been no significant change since the prior study. BI/SCRN MAMM (CAD)W/PRAVEENA BILAT IMPRESSION: Stable bilateral screening mammogram. Yearly follow-up mammogram recommended. (A) ASSESSMENT CATEGORY: BIRADS Category 1: Negative. A letter regarding these results will be sent to the patient by the facility within 30 days. Approximately 10% of breast cancers are not detected by mammography. A normal mammogram should not delay biopsy of a clinically suspicious abnormality. [id number] Electronically Signed: Calvin Flores MD at 9:17 EST ,
--- OUTSIDE RECORDS SUMMARY | 2023-04-14 17:33 | XMS RPT_ITS | CCD ---
Author Name Unknown Address [id number] [place] [address] Organization [facility] Care Team Providers Care Bulk Intake Worker Name Role Phone CHARMAINE BRONSON Unavailable Unavailable ZACH GARCIA Unavailable Unavailable CHARMAINE BRONSON Unavailable Unavailable ZACH GARCIA Unavailable Unavailable CHARMAINE BRONSON Unavailable Unavailable ZACH GARCIA Unavailable Unavailable Zach Garcia Unavailable [phone] Unavailable Unavailable Zach Garcia MD Primary Care Provider [phone] Admitting Unavailable CHARMAINE BRONSON DR Attending Unavailable CHARMAINE BRONSON DR Primary Care Unavailable FLORENCE SMITH PAC Admitting Unavailable LUISFLORENCE PILLAI PAC Attending Unavailable FLORENCE SMITH PAC Primary Care Unavailable ZACH GARCIA MD Consulting Unavailable PROVIDER, UNKNOWN Consulting Unavailable Zach Garcia MD Primary Care Provider [phone] Zach Garcia MD Primary Care Provider [phone] KENIA MAYORGA Attending Unavailable ZACH GARCIA Primary Care Unavailable ZACH GARCIA Primary Care Unavailable ZACH GARCIA Attending Unavailable ZACH GARCIA Primary Care Unavailable ZACH GARCIA Referring Unavailable ZACH GARCIA Primary Care Unavailable ZACH GARCIA Attending Unavailable Allergies Allergy Classification Reported Allergen(s) Allergy Type Date of Onset Reaction(s) Facility (5 sources) Sulfamethoxazole ; Translations: [sulfa] Drug Allergy MG-Otolaryngo [facility] [address] Work Phone: (14 sources) cefdinir; Translations: [CEFDINIR] Drug Allergy 03-20-2007 [facility] Work Phone: (14 sources) Doxycycline; Translations: [DOXYCYCLINE MONOHYDRATE] Drug Allergy 01-15-2011 Hives, Swelling, Anaphylaxis [facility] Work Phone: (14 sources) Etodolac; Translations: [ETODOLAC] Drug Allergy 01-07-2011 Rash, Swelling, Itching [facility] Work Phone: (14 sources) sulfaSALAzine; Translations: [SULFASALAZINE] Drug Allergy 09-19-[address] [facility] Work Phone: (14 sources) Sulfa Dyne; Translations: [SULFA DYNE] Drug Allergy 09-19-2011 [facility] Work Phone: Medications Current Medications Medication Drug Class(es) Dates Sig (Normalized) Sig (Original) meloxicam 15 mg oral tablet (1 source) Nonsteroidal Anti-inflammatory Drug Start: 08-13-2022 End: 08-28-2022 take 1 tablet by mouth once daily at mealtime meloxicam (MOBIC) 15 mg tablet Indications: Multiple contusions Take 1 tablet by mouth once daily for 15 days. With food. 15 tablet 0 08/13/2022 08/28/2022 Active Completed/Discontinued Medications Medication Drug Class(es) Dates Sig (Normalized) Sig (Original) [id number] 200 actuat albuterol 0.09 mg/actuat metered dose inhaler (13 sources) beta2-Adrenergic Agonist Start: 09-09-2019 take 2 puff(s) by inhalation every four hours as needed for wheezing albuterol HFA (PROVENTIL HFA, VENTOLIN HFA) 90 mcg/actuation inhaler Indications: Pneumonia due to infectious organism, unspecified laterality, unspecified part of lung , Persistent cough Inhale 2 Puffs as instructed every 4 hours as needed for Wheezing/Shortness of Breath. 1 Inhaler 1 09/09/2019 Active Problems Active Problems Problem Classification Problem Date Documented Date Episodic/Chronic Asthma (14 sources) Uncomplicated moderate persistent asthma; Translations: [Moderate persistent asthma, uncomplicated] Onset: 09-18-2020 03-11-2021 Chronic Conditions associated with dizziness or vertigo (1 source) Loss of equilibrium; Translations: [Dizziness and giddiness] Episodic Diabetes mellitus with complications (19 sources) Type 2 diabetes mellitus; Translations: [Type 2 diabetes mellitus with diabetic neuropathy, unspecified] Onset: 02-27-2016 02-27-2016 Chronic Esophageal disorders (16 sources) Gastroesophageal reflux disease; Translations: [Gastro-esophageal reflux disease without esophagitis] Onset: 05-26-2008 11-20-2009 Chronic Essential hypertension (19 sources) Essential hypertension; Translations: [Essential (primary) hypertension] Onset: 05-26-2008 02-04-2016 Chronic Immunizations and screening for infectious disease (1 source) Vaccination needed; Translations: [Encounter for immunization] Episodic Mood disorders (13 sources) Depressive disorder; Translations: [Depressive disorder] Onset: 02-04-2016 02-04-2016 Chronic Nutritional deficiencies (13 sources) Vitamin D deficiency; Translations: [Vitamin D deficiency, unspecified] Onset: 03-13-2017 03-13-2017 Chronic Osteoarthritis (13 sources) Osteoarthritis of right knee joint; Translations: [Unilateral primary osteoarthritis, right knee] Onset: 01-30-2015 01-30-2015 Chronic Other ear and sense organ disorders (5 sources) Hearing loss; Translations: [Unspecified hearing loss] Chronic Other injuries and conditions due to external causes (1 source) History of fall; Translations: [History of falling] Episodic Other nutritional; endocrine; and metabolic disorders (3 sources) Body mass index 30+ - obesity; Translations: [Body Mass Index 32.0-32.9, adult] Chronic Other screening for suspected conditions (not mental disorders or infectious disease) (3 sources) Patient encounter status; Translations: [Encounter for screening mammogram for malignant neoplasm of breast] Episodic Other upper respiratory disease (5 sources) Hoarse; Translations: [Dysphonia] Episodic Other upper respiratory disease (5 sources) Lesion of vocal cord; Translations: [Other diseases of vocal cords] Episodic Other upper respiratory disease (5 sources) Disorder of vocal cord; Translations: [Other diseases of vocal cords] Episodic Regional enteritis and ulcerative colitis (13 sources) Crohn's disease of colon; Translations: [Crohn's disease of large intestine without complications] Onset: 06-22-2015 05-03-2021 Chronic Rheumatoid arthritis and related disease (13 sources) Inflammatory polyarthropathy; Translations: [Inflammatory polyarthropathy] Onset: 05-28-2011 05-28-2011 Chronic Past or Other Problems Problem Classification Problem Date Documented Date Episodic/Chronic Deficiency and other anemia (13 sources) Anemia; Translations: [Anemia, unspecified] Onset: 08-10-2019 08-10-2019 Episodic Deficiency and other anemia (1 source) Anemia, unspecified; Translations: [Anemia, unspecified type] Onset: 08-10-2019 Episodic Other connective tissue disease (15 sources) Fibromyalgia; Translations: [Fibromyalgia] Onset: 02-04-2016 02-04-2016 Episodic Other female genital disorders (1 source) Other specified noninflammatory disorders of vagina; Translations: [Vaginal itching] Onset: 01-07-2023 Episodic Results Test Name Value Interpretation Reference Range Facil ity Vital Signs Date Time Vital Sign Value Performing Clinician Facility 09-24-2022 17:32-0400 Diastolic blood pressure 58 mm[Hg] Zach Garcia MD Work Phone: [facility] 09-24-2022 17:32-0400 Systolic blood pressure 118 mm[Hg] Zach Garcia MD Work Phone: [facility] 09-24-2022 17:00-0400 Body weight 80.29 kg Zach Garcia MD Work Phone: [facility] 09-24-2022 17:00-0400 Heart rate 80 /min Zach Garcia MD Work Phone: [facility] 09-24-2022 17:00-0400 Respiratory rate 18 /min Zach Garcia MD Work Phone: [facility] 09-13-2021 10:51-0400 Body temperature 97.81 [degF] Zach Garcia MD Work Phone: [facility] 09-13-2021 10:51-0400 Body weight 82.56 kg Zach Garcia MD Work Phone: [facility] 09-13-2021 10:51-0400 Diastolic blood pressure 60 mm[Hg] Zach Garcia MD Work Phone: [facility] 09-13-2021 10:51-0400 Heart rate 95 /min Zach Garcia MD Work Phone: [facility] 09-13-2021 10:51-0400 Respiratory rate 16 /min Zach Garcia MD Work Phone: [facility] 09-13-2021 10:51-0400 SaO2% (BldA) [Mass fraction] 97 % Zach Garcia MD Work Phone: [facility] 09-13-2021 10:51-0400 Systolic blood pressure 120 mm[Hg] Zach Garcia MD Work Phone: [facility] 07-08-2021 10:08-0400 Body weight 84.37 kg Jennifer Varghese PREVENTIVE MAINTENANCE COORDINATOR.GEOPHYSICAL DRAFTER Work Phone: [facility] 07-08-2021 10:08-0400 Diastolic blood pressure 72 mm[Hg] Jennifer Varghese PREVENTIVE MAINTENANCE COORDINATOR.GEOPHYSICAL DRAFTER Work Phone: [facility] 07-08-2021 10:08-0400 Heart rate 92 /min Jennifer Varghese PREVENTIVE MAINTENANCE COORDINATOR.GEOPHYSICAL DRAFTER Work Phone: [facility] 07-08-2021 10:08-0400 Respiratory rate 16 /min Jennifer Varghese PREVENTIVE MAINTENANCE COORDINATOR.GEOPHYSICAL DRAFTER Work Phone: [facility] 07-08-2021 10:08-0400 Systolic blood pressure 132 mm[Hg] Jennifer Varghese PREVENTIVE MAINTENANCE COORDINATOR.GEOPHYSICAL DRAFTER Work Phone: [facility] 01-01-2021 12:52-0400 Body height 162.56 cm Zach Garcia [facility] Work Phone: 01-01-2021 12:52-0400 Body mass index (BMI) [Ratio] 32.61 kg/m2 aZch Garcia [facility] Work Phone: 01-01-2021 12:52-0400 Body surface area Derived from formula 1.91 m2 Zach Garcia [facility] Work Phone: 01-01-2021 12:52-0400 Body weight 86.18 kg Zach Garcia [facility] Work Phone: Encounters Encounter Date Encounter Type Care Provider Facility Start: 01-07-2023 End: 01-08-2023 ambulatory KENIA Blanton TIERRA Facility:[facility] Start: 12-30-2022 Refill Zach lr MD Work Phone: [facility] [place] Procedures Date Procedure Procedure Detail Performing Clinician Start: 11-04-2021 Colonoscopy Zach Rivera MD Work Phone: Start: 11-14-2020 Mammography Jennifer Broo ks PREVENTIVE MAINTENANCE COORDINATOR.GEOPHYSICAL DRAFTER Work Phone: Start: 10-27-2019 Colonoscopy Jennifer Broo ks PREVENTIVE MAINTENANCE COORDINATOR.GEOPHYSICAL DRAFTER Work Phone: Plan of Treatment Date Care Activity Detail Author Start: 06-01-2028 Urine microalbumin profile [facility] Start: 11-04-2026 Colonoscopy COLONOSCOPY [facility] Start: 11-04-2026 COLORECTAL CANCER SCREENING COLORECTAL CANCER SCREENING [facility] Start: 10-26-2024 Colonoscopy COLONOSCOPY [facility] Start: 10-26-2024 COLORECTAL CANCER SCREENING COLORECTAL CANCER SCREENING [facility] Start: 09-25-2023 ANNUAL PCP TEAM GOURMET COFFEE ATTENDANT MARI DISEASE VISIT ANNUAL PCP TEAM CHRONIC DISEASE VISIT [facility] Start: 09-25-2023 BP CONTROLLED (<130/80) BP CONTROLLE D (<130/80) [facility] Start: 09-25-2023 COVID-19 VACCINE (4 - Booster for Pfizer series) COVID-19 VACCINE (4 - Booster for Pfizer series) [facility] Immunizations Immunization Date Immunization Notes Care Provider Fa cility 09-24-2022 pneumococcal Conjuga te, unspecified formulation Zach Garcia MD Work Phone: [facility] Work Phone: 09-24-2022 pneumococcal (PCV20) vaccine, 20 valent (PREVNAR 20) Zach Garcia MD Work Phone: [facility] Work Phone: 06-16-2022 Hepatitis B vaccine (recombinant), CpG adjuvanted Zach Garcia MD Work Phone: [facility] Work Phone: 04-13-2021 COVID-19 original vaccine, age 12+ yr, monovalent (PFIZER-BIONTECH - PURPLE TOP) Zach Garcia MD Work Phone: [facility] Work Phone: 03-11-2021 influenza, injectabl e, quadrivalent, contains preservative Jennifer Varghese PREVENTIVE MAINTENANCE COORDINATOR.GEOPHYSICAL DRAFTER Work Phone: [facility] Work Phone: 03-11-2021 influenza virus vacc ine, unspecified formulation Zach Garcia MD Work Phone: [facility] 2020 zoster vaccine recombinant Jennifer Varghese PREVENTIVE MAINTENANCE COORDINATOR.GEOPHYSICAL DRAFTER Work Phone: [facility] Work Phone: 09-01-2020 zoster vaccine recombinant Jennifer Varghese PREVENTIVE MAINTENANCE COORDINATOR.GEOPHYSICAL DRAFTER Work Phone: [facility] Work Phone: 07-31-2020 COVID-19 vaccine, ag e 12+ yr (PFIZER-BIONTECH - PURPLE TOP) Jennifer Varghese PREVENTIVE MAINTENANCE COORDINATOR.GEOPHYSICAL DRAFTER Work Phone: [facility] Work Phone: 06-28-2020 COVID-19 vaccine, ag e 12+ yr (PFIZER-BIONTECH - PURPLE TOP) Jennifer Varghese PREVENTIVE MAINTENANCE COORDINATOR.GEOPHYSICAL DRAFTER Work Phone: [facility] Work Phone: 03-05-2020 influenza, seasonal, injectable Jennifer Varghese PREVENTIVE MAINTENANCE COORDINATOR.GEOPHYSICAL DRAFTER Work Phone: [facility] Work Phone: 01-17-2019 influenza, injectabl e, quadrivalent, contains preservative Jennifer Varghese PREVENTIVE MAINTENANCE COORDINATOR.GEOPHYSICAL DRAFTER Work Phone: [facility] Work Phone: 06-01-2018 tetanus and diphther ia toxoids, adsorbed, preservative free, for adult use (5 Lf of tetanus toxoid and 2 Lf of diphtheria toxoid) Jennifer Varghese PREVENTIVE MAINTENANCE COORDINATOR.GEOPHYSICAL DRAFTER Work Phone: [facility] Work Phone: 03-09-2018 influenza, injectabl e, quadrivalent, contains preservative Jennifer Varghese PREVENTIVE MAINTENANCE COORDINATOR.GEOPHYSICAL DRAFTER Work Phone: [facility] Work Phone: 02-23-2017 influenza, injectabl e, quadrivalent, contains preservative Jennifer Varghese PREVENTIVE MAINTENANCE COORDINATOR.GEOPHYSICAL DRAFTER Work Phone: [facility] 02-04-2016 influenza, injectabl e, quadrivalent, contains preservative Jennifer Varghese PREVENTIVE MAINTENANCE COORDINATOR.GEOPHYSICAL DRAFTER Work Phone: [facility] 01-04-2015 influenza, seasonal, injectable Jennifer Varghese PREVENTIVE MAINTENANCE COORDINATOR.GEOPHYSICAL DRAFTER Work Phone: [facility] 01-05-2014 influenza virus vacc ine, unspecified formulation Jennifer Varghese PREVENTIVE MAINTENANCE COORDINATOR.GEOPHYSICAL DRAFTER Work Phone: [facility] 01-19-2013 influenza virus vacc ine, unspecified formulation Jennifer Varghese PREVENTIVE MAINTENANCE COORDINATOR.GEOPHYSICAL DRAFTER Work Phone: [facility] 02-23-2012 influenza virus vacc ine, unspecified formulation Jennifer Varghese PREVENTIVE MAINTENANCE COORDINATOR.GEOPHYSICAL DRAFTER Work Phone: [facility] Work Phone: 05-28-2011 pneumococcal polysaccharide vaccine, 23 valent Jennifer Varghese PREVENTIVE MAINTENANCE COORDINATOR.GEOPHYSICAL DRAFTER Work Phone: [facility] Work Phone: 03-16-2011 influenza virus vacc ine, unspecified formulation Jennifer Varghese PREVENTIVE MAINTENANCE COORDINATOR.GEOPHYSICAL DRAFTER Work Phone: [facility] Work Phone: 05-26-2008 tetanus toxoid, redu natalie diphtheria toxoid, and acellular pertussis vaccine, adsorbed Jennifer Varghese PREVENTIVE MAINTENANCE COORDINATOR.[facility] Work Phone: [facility] Work Phone: Payers Date Payer Category Payer Private Health Insurance ARLEY [employer] [id number] 2022-Present [phone] [address] [place] [address] PPO [id number] 2022 Private Health Insurance [id number] 2021 Unknown 2021 Unknown ABRAHAM ANGIE JEF KAY PPO [id number] 2021-Present [phone] [address] [place] [address] PPO [id number] 2017 Private Health Insurance [id number] 1960 Unknown [id number] 1960 Unknown [id number] Unknown [id number] Social History Date Type Detail Facility Start: 02-24-2011 End: 08-13-2022 Non-smoker Non-smoker [facility] Start: 02-24-2011 End: 08-13-2022 Tobacco smoking status NHIS Ex-smoker [facility] Work Phone: End: 04-26-2003 History of tobacco use Current smoker [facility] Work Phone: End: 04-26-2003 History of tobacco use Cigarette Smoker [facility] Work Phone: Start: 02-24-2011 End: 08-13-2022 Tobacco use and exposure Smokeless tobacco non-user [facility] Work Phone: Start: 07-08-2021 End: 09-24-2022 Alcohol intake Current non-drinker of alcohol (finding) [facility] Start: 04-26-2020 History SDOH Stress 2 [facility] Start: 04-26-2020 History SDOH Housing Unable to Pay [address] [facility] Start: 04-26-2020 History SDOH Housing Places Lived [address] [facility] Start: 1960 Sex Assigned At Not on file C [facility] Start: 06-28-2021 End: 09-13-2021 Exposure to SARS-CoV-2 (event) Not sure [facility] Work Phone: Start: 04-26-2020 End: 08-13-2022 Social connection and isolation panel [facility] In a typical week, h ow many times do you talk on the telephone with family, friends, or neighbors? Patient refused [facility] Are you now , , , , never or living with a partner? Refused [facility] Do you feel stress - tense, restless, nervous, or anxious, or unable to sleep at night because your mind is troubled all the time - these days [OSQ] Only a little [facility] (I/We) worried wheth er (my/our) food would run out before (I/we) got money to buy more. DK or Refused [facility] Medical Equipment Procedure Code Equipment Code Equipment Origin al Text Equipment Identifier Dates Start: 04-05-2020 End: 05-02-2022 Clinical Notes 06-05-2019 to 01-07-2023 Telephone Encounter - Jerri Goldstein RN - 01/02/2023 8:45 AM EDTTelephone Encounter - Deneen Reeder LPN - 12/30/2022 9:44 AM EDTViclarissa Garcia MD - 09/24/2022 5:13 PM EDT Note Date & Type Note Facility 01-07-2023 Note HNO ID: [id number] Author: Kenia Maguire APRN.DIRECTOR [employer] Service: ? Author Type: Nurse Practitioner Type: Progress Notes Filed: 01/07/2023 6:57 PM Note Text: CC: Patient presents with: F/U 3 Month HPI Leslie Rodriguez is a 62 year old female who presents today for above. Patient reports chronic vaginal itching, wondering if it is due to Jardiance. She denies vaginal redness, burning, or abnormal discharge. She would like to switch HCTZ to a different BP medication due to significant dry mouth. Drinks a lot of water but does not help. She was on Lisinopril previously and did well. She does not check BP at home. She is checking blood sugar once a day, fasting average in the 150's. Denies any other concerns today. Review of Systems See HPI PAST MEDICAL HISTORY Diagnosis Date Acute deep vein thrombosis (DVT) of tibial vein of left lower extremity (HCC) 08/10/2019 Cervicalgia 01/20/2006 Chronic cough 03/08/2020 COVID-19 virus infection 04/27/2020 Crohn disease ([facility]) 07/04/2011 Diabetes mellitus ([facility]) 11/20/2009 Diarrhea Esophageal reflux 05/26/2008 Fibromyalgia 03/22/2004 HYPERTENSION NOS 05/26/2008 Inflammatory polyarthropathies ([facility]) 05/28/2011 Irritable bowel syndrome 01/18/2010 Irritable bowel Moderate persistent asthma without complication 09/18/2020 OBESITY NOS 05/26/2008 Palpitations 11/20/2009 Type 2 diabetes mellitus with diabetic neuropathy, without long-term current use of insulin ([facility]) 02/27/2016 Type II or unspecified type diabetes mellitus without mention of complication, not stated as uncontrolled 2009 PAST SURGICAL HISTORY Procedure Laterality Date ARTHRP KNE CONDYLEANDPLATU MEDIALANDLAT COMPARTMENTS Right 06/15/2017 CHOLECYSTECTOMY 09/13/1973 Cholecystectomy COLONOSCOPY 03/21/2018 COLONOSCOPY 10/27/2019 COLONOSCOPY 01/24/2021 Dr. Sarah More COLONOSCOPY FLX DX W/COLLJ SPEC WHEN PFRMD 03/27/1997 Colonoscopy COLONOSCOPY FLX DX W/COLLJ SPEC WHEN PFRMD 06/26/2011 Colonoscopy [facility] COLONOSCOPY FLX DX W/COLLJ SPEC WHEN PFRMD 06/30/2014 Colonoscopy COLONOSCOPY FLX DX W/COLLJ SPEC WHEN PFRMD 06/22/2015 Colonoscopy EGD 03/21/2018 EGD 10/27/2019 EGD 01/24/2021 Dr. Sarah More ESOPHAGOGASTRODUODENOSCOPY TRANSORAL DIAGNOSTIC 06/30/2014 EGD KNEE ARTHROSCOPY/SURGERY Left 1979 KNEE ARTHROSCOPY/SURGERY Right 1989 LIG/TRNSXJ FLP TUBE ABDL/VAG APPR UNI/BI 10/10/1993 Tubal ligation NEUROPLASTY AND/TRANSPOS MEDIAN NRV CARPAL TUNNE Left 2008 Carpal tunnel decomp PAST SURGICAL HISTORY OF 07/10/2004 debridement, felon, right index finger SIGMOIDOSCOPY FLX DX W/COLLJ SPEC BR/WA IF PFRMD 07/09/2011 Sigmoidoscopy, flexible TOTAL KNEE REPLACEMENT Left 07/26/2021 VAGINAL HYSTERECTOMY UTERUS 250 GM/< 03/15/1996 ALLERGIES Doxycycline Monohydrate, Etodolac, Asulfazine [Sulfasalazine], Cefdinir, and Sulfa Dyne MEDICATIONS montelukast (SINGULAIR) 10 mg tablet Take 1 tablet by mouth daily at bedtime. atorvastatin (LIPITOR) 10 mg tablet Take 1 tablet by mouth daily at bedtime. For cholesterol. omeprazole (PRILOSEC) 40 mg capsule Take 1 capsule by mouth once daily. potassium chloride SR (MICRO-K) 8 mEq cpER Take 1 capsule by mouth daily with breakfast. hydroCHLOROthiazide 12.5 mg capsule Take 1 capsule by mouth once daily. amitriptyline (ELAVIL) 75 mg tablet Take 1 tablet by mouth daily at bedtime. folic acid 1 mg tablet Take 2 tablets by mouth once daily. blood sugar diagnostic (Taste FilterUCH ULTRA TEST) test strip Test once daily. Dx:E11.40. No insulin. empagliflozin (JARDIANCE) 25 mg tablet Take 1 tablet by mouth once daily. Take 1 tablet once daily in the morning glipiZIDE (GLUCOTROL XL) 10mg 24 hr tablet Take 1 tablet by mouth once daily. lancets (KiggitTOUCH DELICA LANCETS) 30 gauge Test blood sugar once daily. Dx: E11.9. Insulin: No fluticasone-vilanterol (BREO ELLIPTA) 200-25 mcg/dose inhaler Inhale 1 Inhalation as instructed once daily. ustekinumab (STELARA) 130 mg/26 mL injection albuterol HFA (PROVENTIL HFA, VENTOLIN HFA) 90 mcg/actuation inhaler Inhale 2 Puffs as instructed every 4 hours as needed for Wheezing/Shortness of Breath. fluticasone (FLONASE) 50 mcg/actuation nasal spray Use 1 [place] in each nostril once daily. Blood-Glucose Meter (Taste FilterUCH ULTRA2) monitoring kit Use as directed to test blood sugar multivitamin tablet Take 1 tablet by mouth once daily. FAMILY HISTORY Problem Relation Age of Onset Breast Cancer Mother other (brain aneurysm) Mother Ischemic Heart Disease Father Hypertension Father Diabetes Brother COPD Brother Coronary Artery Disease Brother other (CVA) Maternal Grandmother Breast Cancer Maternal Aunt Ischemic Heart Disease Brother Diabetes Sister Social History Tobacco Use Smoking status: Former Packs/day: 0.50 Years: 20.00 Additional pack years: 0.00 Total pack years: 10.00 Types: Cigarettes Quit date: 04/26/2003 Years since quittin.7 Smokeless tobac (more content not included)... [facility] 01-02-2023 Miscellaneous Notes Patient calls to check on status of request for refills. Patient reports she is completely out of all medications. Jerri Goldstein RN Date of last office visit in primary care: 09/24/2022 3 month follow-up: 01/07/2023 Last 2 Encounter Wt Readings: Date: Wt: 09/24/2022 80.3 kg (177 lb) 08/13/2022 81.2 kg (179 lb) Previous labs/tests for medication: Cholesterol: HDL Cholesterol (mg/dL) Date Value 03/09/2021 39 HDL Cholesterol, Nonfasting (mg/dL) Date Value 08/13/2022 44 LDL Cholesterol (mg/dL) Date Value 03/09/2021 50 LDL Cholesterol, Nonfasting (mg/dL) Date Value 08/13/2022 60 ALT (U/L) Date Value 08/13/2022 28 03/09/2021 31 Non HDL Cholesterol, Nonfasting (mg/dL) Date Value 08/13/2022 116 Non HDL Cholesterol (mg/dL) Date Value 03/09/2021 70 Potassium: No components found for: POT Please advise. Thank you. Deneen Reeder LPN Patient has been identified by name and date of : Yes Requested Prescriptions Pending Prescriptions Disp Refills montelukast (SINGULAIR) 10 mg tablet 90 tablet 3 Sig: Take 1 tablet by mouth daily at bedtime. atorvastatin (LIPITOR) 10 mg tablet 90 tablet 3 Sig: Take 1 tablet by mouth daily at bedtime. For cholesterol. omeprazole (PRILOSEC) 40 mg capsule 90 capsule 3 Sig: Take 1 capsule by mouth once daily. potassium chloride SR (MICRO-K) 8 mEq cpER 90 capsule 3 Sig: Take 1 capsule by mouth daily with breakfast. RX INSTRUCTIONS: Patient aware RX will be sent to pharmacy. No need to notify patient. Nay Garcia Pss documented in this encounter [facility] 12-23-2022 Miscellaneous Notes Patient has been identified by name and date of : Yes, Patient phones for refill(s): Requested Prescriptions Pending Prescriptions Disp Refills hydroCHLOROthiazide 12.5 mg capsule 90 capsule 3 Sig: Take 1 capsule by mouth once daily. Date of last office visit in primary care: 09/24/2022 3 month follow-up: 01/07/2023 Last 2 Encounter Wt Readings: Date: Wt: 09/24/2022 80.3 kg (177 lb) 08/13/2022 81.2 kg (179 lb) Previous labs/tests for medication: Blood Pressure: BUN (mg/dL) Date Value 08/13/2022 13 04/30/2021 12 Sodium (mmol/L) Date Value 08/13/2022 136 04/30/2021 138 Last 1 Encounter BP Readings: Date: BP: 09/24/2022 118/58 Please advise. Thank you. Deneen Reeder LPN Patient has been identified by name and date of : Yes Last office visit in this department: 12/21/2009 RX INSTRUCTIONS: Patient aware RX will be sent to pharmacy. No need to notify patient. Patient phones requesting refills as follows: Requested Prescriptions Pending Prescriptions Disp Refills hydroCHLOROthiazide 12.5 mg capsule 90 capsule 3 Sig: Take 1 capsule by mouth once daily. Please review and advise. Qian Khan documented in this encounter [facility] 12-22-2022 Miscellaneous Notes Patient notified, she wants Lab orders faxed to [facility] Lab. Done. Deneen Reeder LPN There are labs already ordered Kenia Maguire APRN.CNP Patient called requesting labs Please advise documented in this encounter [facility] 09-24-2022 Note HNO ID: [id number] Author: Zach Garcia MD Service: ? Author Type: Physician Type: Progress Notes Filed: 09/24/2022 11:01 PM Note Text: This note was created using [employer] Wave. Subjective Leslie Rodriguez is a 61 year old female. She was here for follow up of hypertension and diabetes mellitus. She was seen after a fall last month. She recovered from her multiple contusions. However, she reported continuing to feel unsteady on her feet, with vague dizziness on getting up or moving. She continued working and had no falls. Her medications were unchanged. Review of Systems Constitutional: Negative for appetite change, fatigue, fever and unexpected weight change. HENT: Negative for hearing loss and tinnitus. Eyes: Negative for visual disturbance. Respiratory: Negative for shortness of breath. Cardiovascular: Negative for chest pain, palpitations and leg swelling. Gastrointestinal: Negative for diarrhea, nausea and vomiting. Genitourinary: Negative. Musculoskeletal: Positive for arthralgias. Neurological: Negative for syncope, facial asymmetry, speech difficulty, weakness and headaches. ACTIVE PROBLEM LIST Essential Hypertension Esophageal Reflux Inflammatory Polyarthropathies (Hcc) Osteoarthritis of Right Knee Crohn's Disease, Colon (Hcc) Fibromyalgia Depressive Disorder Type 2 Diabetes Mellitus With Diabetic Neuropathy, Without Long-Term Current Use of Insulin (Hcc) Vitamin D Deficiency Anemia Moderate Persistent Asthma Without Complication Social History Tobacco Use Smoking status: Former Packs/day: 0.50 Years: 20.00 Pack years: 10.00 Types: Cigarettes Quit date: 04/26/2003 Years since quittin.4 Smokeless tobacco: Never Vaping Use Vaping Use: Never used Substance Use Topics Alcohol use: No Drug use: No Current Outpatient Medications Medication Sig folic acid 1 mg tablet Take 2 tablets by mouth once daily. Amitriptyline HCl 150 mg tablet Take 1 tablet by mouth daily at bedtime. blood sugar diagnostic (Taste FilterUCH ULTRA TEST) test strip Test once daily. Dx:E11.40. No insulin. empagliflozin (JARDIANCE) 25 mg tablet Take 1 tablet by mouth once daily. Take 1 tablet once daily in the morning glipiZIDE (GLUCOTROL XL) 10mg 24 hr tablet Take 1 tablet by mouth once daily. atorvastatin (LIPITOR) 10 mg tablet Take 1 tablet by mouth daily at bedtime. For cholesterol. hydroCHLOROthiazide (HYDRODIURIL, ESIDRIX) 12.5 mg capsule Take 1 capsule by mouth once daily. omeprazole (PRILOSEC) 40 mg capsule Take 1 capsule by mouth once daily. montelukast (SINGULAIR) 10 mg tablet Take 1 tablet by mouth daily at bedtime. potassium chloride SR (MICRO-K) 8 mEq cpER Take 1 capsule by mouth daily with breakfast. lancets (Taste FilterUCH DELICA LANCETS) 30 gauge Test blood sugar once daily. Dx: E11.9. Insulin: No fluticasone-vilanterol (BREO ELLIPTA) 200-25 mcg/dose inhaler Inhale 1 Inhalation as instructed once daily. albuterol HFA (PROVENTIL HFA, VENTOLIN HFA) 90 mcg/actuation inhaler Inhale 2 Puffs as instructed every 4 hours as needed for Wheezing/Shortness of Breath. fluticasone (FLONASE) 50 mcg/actuation nasal spray Use 1 [place] in each nostril once daily. Blood-Glucose Meter (KiggitTOUCH ULTRA2) monitoring kit Use as directed to test blood sugar multivitamin tablet Take 1 tablet by mouth once daily. ustekinumab (STELARA) 130 mg/26 mL injection No current facility-administered medications for this visit. Objective BP 118/58 (BP Site: Left Arm, BP Position: Sitting) Pulse 80 Resp 18 Wt 80.3 kg (177 lb) BMI 29.45 kg/m? Physical Exam Constitutional: Appearance: She is not ill-appearing or diaphoretic. HENT: Head: Atraumatic. Eyes: Extraocular Movements: Extraocular movements intact. Conjunctiva/sclera: Conjunctivae normal. Cardiovascular: Rate and Rhythm: Normal rate and regular rhythm. Pulmonary: Breath sounds: Normal breath sounds. Musculoskeletal: Right lower leg: No edema. Left lower leg: No edema. Neurological: General: No focal deficit present. Mental Status: She is alert. Cranial Nerves: Cranial nerves 2-12 are intact. No cranial nerve deficit. Sensory: No sensory deficit. Motor: No weakness or pronator drift. Coordination: Romberg sign negative. Gait: Tandem walk abnormal. Assessment and Plan 1. Disequilibrium - ICD9: 780.4, ICD10: R42 (primary diagnosis) - Reduce AMITRIPTYLINE. - CONSULT TO PHYSICAL THERAPY 2. Moderate persistent asthma without complication - ICD9: 493.90, ICD10: J45.40 - Stable. - Continue current medications 3. Type 2 diabetes mellitus with diabetic neuropathy, without long-term current use of insulin (HCC) - ICD9: 250.60, 357.2, ICD10: E11.40 - Controlled - Continue current medications - BASIC METABOLIC PNL - HGB A1C - LIPID PANEL BASIC 4. Essential hypertension - ICD9: 401.9, ICD10: I10 - Controlled - Continue current medications 5. Encounter for (more content not included)... [facility] 09-24-2022 History of Present illness Narrative This note was created using Jiva [employer]. Subjective Leslie Rodriguez is a 61 year old female. She was here for follow up of hypertension and diabetes mellitus. She was seen after a fall last month. She recovered from her multiple contusions. However, she reported continuing to feel unsteady on her feet, with vague dizziness on getting up or moving. She continued working and had no falls. Her medications were unchanged. Review of Systems Constitutional: Negative for appetite change, fatigue, fever and unexpected weight change. HENT: Negative for hearing loss and tinnitus. Eyes: Negative for visual disturbance. Respiratory: Negative for shortness of breath. Cardiovascular: Negative for chest pain, palpitations and leg swelling. Gastrointestinal: Negative for diarrhea, nausea and vomiting. Genitourinary: Negative. Musculoskeletal: Positive for arthralgias. Neurological: Negative for syncope, facial asymmetry, speech difficulty, weakness and headaches. ACTIVE PROBLEM LIST Essential Hypertension Esophageal Reflux Inflammatory Polyarthropathies (Hcc) Osteoarthritis of Right Knee Crohn's Disease, Colon (Hcc) Fibromyalgia Depressive Disorder Type 2 Diabetes Mellitus With Diabetic Neuropathy, Without Long-Term Current Use of Insulin (Hcc) Vitamin D Deficiency Anemia Moderate Persistent Asthma Without Complication Social History Tobacco Use Smoking status: Former Packs/day: 0.50 Years: 20.00 Pack years: 10.00 Types: Cigarettes Quit date: 04/26/2003 Years since quittin.4 Smokeless tobacco: Never Vaping Use Vaping Use: Never used Substance Use Topics Alcohol use: No Drug use: No Current Outpatient Medications Medication Sig folic acid 1 mg tablet Take 2 tablets by mouth once daily. Amitriptyline HCl 150 mg tablet Take 1 tablet by mouth daily at bedtime. blood sugar diagnostic (Taste FilterUCH ULTRA TEST) test strip Test once daily. Dx:E11.40. No insulin. empagliflozin (JARDIANCE) 25 mg tablet Take 1 tablet by mouth once daily. Take 1 tablet once daily in the morning glipiZIDE (GLUCOTROL XL) 10mg 24 hr tablet Take 1 tablet by mouth once daily. atorvastatin (LIPITOR) 10 mg tablet Take 1 tablet by mouth daily at bedtime. For cholesterol. hydroCHLOROthiazide (HYDRODIURIL, ESIDRIX) 12.5 mg capsule Take 1 capsule by mouth once daily. omeprazole (PRILOSEC) 40 mg capsule Take 1 capsule by mouth once daily. montelukast (SINGULAIR) 10 mg tablet Take 1 tablet by mouth daily at bedtime. potassium chloride SR (MICRO-K) 8 mEq cpER Take 1 capsule by mouth daily with breakfast. lancets (Taste FilterUCH DELICA LANCETS) 30 gauge Test blood sugar once daily. Dx: E11.9. Insulin: No fluticasone-vilanterol (BREO ELLIPTA) 200-25 mcg/dose inhaler Inhale 1 Inhalation as instructed once daily. albuterol HFA (PROVENTIL HFA, VENTOLIN HFA) 90 mcg/actuation inhaler Inhale 2 Puffs as instructed every 4 hours as needed for Wheezing/Shortness of Breath. fluticasone (FLONASE) 50 mcg/actuation nasal spray Use 1 [place] in each nostril once daily. Blood-Glucose Meter (KiggitTOUCH ULTRA2) monitoring kit Use as directed to test blood sugar multivitamin tablet Take 1 tablet by mouth once daily. ustekinumab (STELARA) 130 mg/26 mL injection No current facility-administered medications for this visit. Objective BP 118/58 (BP Site: Left Arm, BP Position: Sitting) Pulse 80 Resp 18 Wt 80.3 kg (177 lb) BMI 29.45 kg/m Physical Exam Constitutional: Appearance: She is not ill-appearing or diaphoretic. HENT: Head: Atraumatic. Eyes: Extraocular Movements: Extraocular movements intact. Conjunctiva/sclera: Conjunctivae normal. Cardiovascular: Rate and Rhythm: Normal rate and regular rhythm. Pulmonary: Breath sounds: Normal breath sounds. Musculoskeletal: Right lower leg: No edema. Left lower leg: No edema. Neurological: General: No focal deficit present. Mental Status: She is alert. Cranial Nerves: Cranial nerves 2-12 are intact. No cranial nerve deficit. Sensory: No sensory deficit. Motor: No weakness or pronator drift. Coordination: Romberg sign negative. Gait: Tandem walk abnormal. Assessment and Plan 1. Disequilibrium - ICD9: 780.4, ICD10: R42 (primary diagnosis) - Reduce AMITRIPTYLINE. - CONSULT TO PHYSICAL THERAPY 2. Moderate persistent asthma without complication - ICD9: 493.90, ICD10: J45.40 - Stable. - Continue current medications 3. Type 2 diabetes mellitus with diabetic neuropathy, without long-term current use of insulin (HCC) - ICD9: 250.60, 357.2, ICD10: E11.40 - Controlled - Continue current medications - BASIC METABOLIC PNL - HGB A1C - LIPID PANEL BASIC 4. Essential hypertension - ICD9: 401.9, ICD10: I10 - Controlled - Continue current medications 5. Encounter for screening mammogram for malignant neoplasm of breast - ICD9: V76.12, ICD10: Z12.31 - [facility] SCREENING W [place] 6. History of falling - ICD9: V15.88, ICD10: Z91.81 - CONSULT TO PHYSICAL THERAPY 7. Fibromyalgia - ICD9: 729.1, ICD10: M79.7 Dose reduced due to balance disorder. - AMITRIPTYLINE 75 MG TABLET 8. Need for vaccination - ICD9: V05.9, ICD10: Z23 - PNEUMOCOCCAL VACCINE (PREVNAR 20) Zach Garcia MD documented in this encounter [facility] 09-17-2022 Miscellaneous Notes Prilosec to be refilled at next appt. Deneen Reeder LPN Patient has been identified by name and date of : Yes Requested Prescriptions Pending Prescriptions Disp Refills omeprazole (PRILOSEC) 40 mg capsule 90 capsule 3 Sig: Take 1 capsule by mouth once daily. RX INSTRUCTIONS: Patient aware RX will be sent to pharmacy. No need to notify patient. Nay Garcia Pss documented in this encounter [facility] 08-13-2022 Note Patient Outreach (IN [facility]) LESLIE RODRIGUEZ ([id number]) 1960 F Date Time Provider Department 08/13/22 ZACH GARCIA During your visit today, we recorded the following information about you: Allergies As of Date: 08/13/2022 Noted Allergy Reaction DOXYCYCLINE MONOHYDRATE 01/15/2011 4 - Hives 7 - Swelling 10 - Anaphylaxis ETODOLAC 01/07/2011 2 - Rash 7 - Swelling 9 - Itching ASULFAZINE (SULFASALAZINE) 09/19/2011 2 - Rash CEFDINIR 06/23/2006 2 - Rash SULFA DYNE 09/19/2011 2 - Rash Date Reviewed: 08/13/2022 Reviewed by: Deneen Reeder LPN - Fully Assessed Visit Diagnosis:Encounter for screening mammogram for breast cancer [Z12.31] Order(s):GABO SCREENING W PRAVEENA [[id number]] Order #: [id number] FUTURE Prescriptions as of 08/18/2022 - folic acid 1 mg tablet Take 2 tablets by mouth once daily. - Amitriptyline HCl 150 mg tablet Take 1 tablet by mouth daily at bedtime. - blood sugar diagnostic (ONETOUCH ULTRA TEST) test strip Test once daily. Dx:E11.40. No insulin. - empagliflozin (JARDIANCE) 25 mg tablet Take 1 tablet by mouth once daily. Take 1 tablet once daily in the morning - glipiZIDE (GLUCOTROL XL) 10mg 24 hr tablet Take 1 tablet by mouth once daily. - meloxicam (MOBIC) 15 mg tablet Take 1 tablet by mouth once daily for 15 days. With food. - atorvastatin (LIPITOR) 10 mg tablet Take 1 tablet by mouth daily at bedtime. For cholesterol. - hydroCHLOROthiazide (HYDRODIURIL, ESIDRIX) 12.5 mg capsule Take 1 capsule by mouth once daily. - omeprazole (PRILOSEC) 40 mg capsule Take 1 capsule by mouth once daily. - montelukast (SINGULAIR) 10 mg tablet Take 1 tablet by mouth daily at bedtime. - potassium chloride SR (MICRO-K) 8 mEq cpER Take 1 capsule by mouth daily with breakfast. - lancets (Taste FilterUCH DELICA LANCETS) 30 gauge Test blood sugar once daily. Dx: E11.9. Insulin: No - fluticasone-vilanterol (BREO ELLIPTA) 200-25 mcg/dose inhaler Inhale 1 Inhalation as instructed once daily. - ustekinumab (STELARA) 130 mg/26 mL injection - albuterol HFA (PROVENTIL HFA, VENTOLIN HFA) 90 mcg/actuation inhaler Inhale 2 Puffs as instructed every 4 hours as needed for Wheezing/Shortness of Breath. - fluticasone (FLONASE) 50 mcg/actuation nasal spray Use 1 [place] in each nostril once daily. - Blood-Glucose Meter (Taste FilterUCH ULTRA2) monitoring kit Use as directed to test blood sugar - multivitamin tablet Take 1 tablet by mouth once daily. Problem List As Of Date 08/13/2022 Noted Resolved Cervicalgia [M54.2] 01/20/2006 02/24/2011 Routine General Medical Examination at [facility]*05/26/2008 10/31/2011 Dermatophytosis of foot [B35.3] 05/26/2008 02/25/2011 Obesity, Unspecified [E66.9] 05/26/2008 07/19/2014 Essential hypertension [I10] 05/26/2008 Esophageal Reflux [K21.9] 05/26/2008 Dysmetabolic Syndrome X [E88.81] 07/07/2008 11/20/2009 Reflux [BVS9519] 11/20/2009 Heartburn [R12] 02/24/2011 Diabetes mellitus (HCC) [E11.9] 11/20/2009 02/23/2017 Chest pain, unspecified [R07.9] 11/20/2009 02/25/2011 Palpitations [R00.2] 11/20/2009 07/19/2014 Inflammatory polyarthropathies [M06.4] 05/28/2011 Crohn disease (HCC) [K50.90] 07/04/2011 02/23/2017 Calcaneal spur [M77.30] 12/15/2011 02/23/2017 Diarrhea [R19.7] 06/30/2014 06/30/2014 Nausea alone [R11.0] 06/30/2014 06/30/2014 Osteoarthritis of right knee [M17.11] 01/30/2015 Neck pain [M54.2] 03/08/2015 02/23/2017 Crohn's disease, colon (HCC) [K50.10] 06/22/2015 Fibromyalgia [M79.7] 02/04/2016 Depressive disorder [F32.A] 02/04/2016 Type 2 diabetes mellitus with diabetic neuropat*02/27/2016 Vitamin D deficiency [E55.9] 03/13/2017 Anemia [D64.9] 08/10/2019 Acute deep vein thrombosis (DVT) of tibial vein*08/10/2019 03/08/2020 Chronic cough [R05.3] 03/08/2020 05/03/2021 COVID-19 virus infection [U07.1] 04/27/2020 09/06/2020 Moderate persistent asthma without complication*09/18/2020 Encounter Status:Closed by EPIC, PRODUSER on 08/18/22 [facility] 08-13-2022 Note HNO ID: [id number] Author: Zach Garcia MD Service: ? Author Type: Physician Type: Progress Notes Filed: 08/13/2022 9:54 AM Note Text: This note was created using Wagadu[employer]. Subjective Patient presents with: ED Follow-up Leslie Rodriguez is a 61 year old female. 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 She was working when she slipped and fell, injuring her left neck, shoulder, ribs, and hip. She was seen in the ED 08/11/22 and diagnosed with contusions and sprains. Xrays were negative. She was improving slowly, taking ibuprofen alternating with acetaminophen. Diabetes was elevating. She had not been seen here for almost one year. Hypertension was controlled. Review of Systems Constitutional: Negative for chills and fever. Respiratory: Negative for cough and shortness of breath. Cardiovascular: Negative for chest pain, palpitations and leg swelling. Gastrointestinal: Negative for abdominal pain. Genitourinary: Negative for difficulty urinating and dysuria. Musculoskeletal: Positive for arthralgias. Skin: Negative for wound. ACTIVE PROBLEM LIST Essential Hypertension Esophageal Reflux Inflammatory Polyarthropathies (Hcc) Osteoarthritis of Right Knee Crohn's Disease, Colon (Hcc) Fibromyalgia Depressive Disorder Type 2 Diabetes Mellitus With Diabetic Neuropathy, Without Long-Term Current Use of Insulin (Hcc) Vitamin D Deficiency Anemia Moderate Persistent Asthma Without Complication Social History Tobacco Use Smoking status: Former Packs/day: 0.50 Years: 20.00 Pack years: 10.00 Types: Cigarettes Quit date: 04/26/2003 Years since quittin.3 Smokeless tobacco: Never Vaping Use Vaping Use: Never used Substance Use Topics Alcohol use: No Drug use: No Current Outpatient Medications Medication Sig folic acid 1 mg tablet Take 2 tablets by mouth once daily. Amitriptyline HCl 150 mg tablet Take 1 tablet by mouth daily at bedtime. blood sugar diagnostic (Taste FilterUCH ULTRA TEST) test strip Use as instructed atorvastatin (LIPITOR) 10 mg tablet Take 1 tablet by mouth daily at bedtime. For cholesterol. hydroCHLOROthiazide (HYDRODIURIL, ESIDRIX) 12.5 mg capsule Take 1 capsule by mouth once daily. omeprazole (PRILOSEC) 40 mg capsule Take 1 capsule by mouth once daily. montelukast (SINGULAIR) 10 mg tablet Take 1 tablet by mouth daily at bedtime. potassium chloride SR (MICRO-K) 8 mEq cpER Take 1 capsule by mouth daily with breakfast. empagliflozin (JARDIANCE) 25 mg tablet Take 1 tablet by mouth once daily. Take 1 tablet once daily in the morning glipiZIDE (GLUCOTROL XL) 10mg 24 hr tablet Take 1 tablet by mouth once daily. lancets (KiggitTOUCH DELICA LANCETS) 30 gauge Test blood sugar once daily. Dx: E11.9. Insulin: No fluticasone-vilanterol (BREO ELLIPTA) 200-25 mcg/dose inhaler Inhale 1 Inhalation as instructed once daily. ustekinumab (STELARA) 130 mg/26 mL injection albuterol HFA (PROVENTIL HFA, VENTOLIN HFA) 90 mcg/actuation inhaler Inhale 2 Puffs as instructed every 4 hours as needed for Wheezing/Shortness of Breath. fluticasone (FLONASE) 50 mcg/actuation nasal spray Use 1 [place] in each nostril once daily. Blood-Glucose Meter (Taste FilterUCH ULTRA2) monitoring kit Use as directed to test blood sugar multivitamin tablet Take 1 tablet by mouth once daily. No current facility-administered medications for this visit. Objective BP 128/68 (BP Site: Left Arm, BP Position: Sitting, BP Cuff Size: Large Adult) Pulse 88 Resp 16 Wt 81.2 kg (179 lb) BMI 29.79 kg/m? Physical Exam Constitutional: General: She is not in acute distress. HENT: Head: Atraumatic. Cardiovascular: Rate and Rhythm: Normal rate and regular rhythm. Heart sounds: No murmur heard. No gallop. Pulmonary: Breath sounds: Normal breath sounds. Abdominal: Tenderness: There is no abdominal tenderness. There is no right CVA tenderness or left CVA tenderness. Musculoskeletal: General: No tenderness. Normal range of motion. Cervical back: Normal range of motion. No tenderness. Right lower leg: No edema. Left lower leg: No edema. Neurological: Mental Status: She is alert. Gait: Gait normal. Feet:Shoes and socks removed, No deformities, ulcers, calluses, normal distal pulses, sensitive to 10 gm monofilament, and nails notable for Deformed or Hypertrophic Assessment and Plan 1. Fall, subsequent encounter - ICD9: V58.89, E888.9, ICD10: W19.XXXD (primary diagnosis) Fall prevention. 2. Fibromyalgia - ICD9: 729.1, ICD10: M79.7 Refilled. - AMITRIPTYLINE 150 MG TABLET 3. Type 2 diabetes mellitus with diabetic neuropathy, without long-term current use of insulin (HCC) - ICD9: 250.60, 357.2, ICD10: E11.40 Control TBD. - Continue current medications - ONETOUCH ULTRA TEST STRIPS - EMPAGLIFLOZIN 25 MG TABLET - GLIPIZIDE ER 10 MG TABLET, EXTENDED RELEASE 24 HR - COMP METABOLIC PANEL - LIPID PANEL, NONFASTING - HGB A1C - ALBUMIN/C (more content not included)... [facility] 05-02-2022 Miscellaneous Notes MALACHI: 09/13/21 with PCP NOV: No appt. Scheduled at this time Last fill: 01/23/21-100 strips 3 refills Adelaida Dangelo MA Patient has been identified by name and date of : Yes Requested Prescriptions Pending Prescriptions Disp Refills blood sugar diagnostic (ONETOUCH ULTRA TEST) test strip 100 Strip 3 Sig: Use as instructed RX INSTRUCTIONS: Patient aware RX will be sent to pharmacy. No need to notify patient. Luly Arnold Pss documented in this encounter [facility] 03-26-2022 Miscellaneous Notes Left a message to call the office and also mailed a letter asking pt to call the office to reschedule March apt. Mei Anrold LPN Left a message for pt to call the office and ask to speak to a nurse. Mei Arnold LPN My chart message to pt to call to rescheduled Dec yearly. Patient due for follow-up Kenia Maguire APRN.CNP Patient has been identified by name and date of : Yes Patient phones for refill(s): Requested Prescriptions Pending Prescriptions Disp Refills folic acid 1 mg tablet 180 tablet 3 Sig: Take 2 tablets by mouth once daily. Date of last office visit in primary care: 09/13/2021 No future appt scheduled. Last 2 Encounter Wt Readings: Date: Wt: 09/13/2021 82.6 kg (182 lb) 07/08/2021 84.4 kg (186 lb) Previous labs/tests for medication: Not applicable Please advise. Thank you. Deneen Reeder LPN Patient has been identified by name and date of : Yes Requested Prescriptions Pending Prescriptions Disp Refills folic acid 1 mg tablet 180 tablet 3 Sig: Take 2 tablets by mouth once daily. RX INSTRUCTIONS: Patient aware RX will be sent to pharmacy. No need to notify patient. Crista Heart Pss documented in this encounter [facility] 01-29-2022 Miscellaneous Notes Patient phones requesting refills as follows: Requested Prescriptions Pending Prescriptions Disp Refills atorvastatin (LIPITOR) 10 mg tablet 90 tablet 3 Sig: Take 1 tablet by mouth daily at bedtime. For cholesterol. Please review and advise. Jodee Seals LPN documented in this encounter [facility] 12-13-2021 Miscellaneous Notes Patient has been identified by name and date of : Yes Requested Prescriptions Pending Prescriptions Disp Refills hydroCHLOROthiazide (HYDRODIURIL, ESIDRIX) 12.5 mg capsule 90 capsule 3 Sig: Take 1 capsule by mouth once daily. omeprazole (PRILOSEC) 40 mg capsule 90 capsule 3 Sig: Take 1 capsule by mouth once daily. montelukast (SINGULAIR) 10 mg tablet 90 tablet 3 Sig: Take 1 tablet by mouth daily at bedtime. RX INSTRUCTIONS: NEW PHARMACY - PLEASE SEND TODAY, NEEDS THIS WEEKEND. Patient aware RX will be sent to pharmacy. No need to notify patient. Misty Costello Pss documented in this encounter [facility] 12-02-2021 Miscellaneous Notes Checked with [facility], Patient did pickup RX. Deneen Reeder LPN Left message to call & speak to nurse. Deneen Reeder LPN Called and left a voicemail for the Patient to call back and ask for a nurse to receive the providers message. Ana Maria Henderson RN Patient's request for medication is as follows Requested Prescriptions Signed Prescriptions Disp Refills fluconazole (DIFLUCAN) 150 mg tablet 1 tablet 0 Sig: Take 1 tablet by mouth once daily for 1 day. Authorizing Provider: ZACH GARCIA Order entered - please phone pharmacy and notify patient. Zach Garcia MD Patient called stating that since starting the Jardiance she has had symptoms of a yeast infection. Burning and itching. Denies any unusual discharge. Has tried Vagasil, Monistat and wipes OTC without any relief. Patient is asking if something could be called into [facility]. Please advise. documented in this encounter [facility] 09-13-2021 History of Present illness Narrative This note was created using [employer]. Subjective Leslie Rodriguez is a 60 year old female. Fibromyalgia was stable, but insomnia was worse. Amitriptyline seemed less effective. Hypertension was controlled. Asthma was stable. She was status post left TKR 07/26/2021. Eye exam was recently done. DM was improving. Review of Systems Constitutional: Negative. Respiratory: Negative. Cardiovascular: Negative. Gastrointestinal: Negative. Genitourinary: Negative. Musculoskeletal: Positive for arthralgias. Neurological: Negative. Psychiatric/Behavioral: Positive for sleep disturbance. Negative for dysphoric mood. ACTIVE PROBLEM LIST Essential Hypertension Esophageal Reflux Inflammatory Polyarthropathies (Hcc) Osteoarthritis of Right Knee Crohn's Disease, Colon (Hcc) Fibromyalgia Depressive Disorder Type 2 Diabetes Mellitus With Diabetic Neuropathy, Without Long-Term Current Use of Insulin (Hcc) Vitamin D Deficiency Anemia Moderate Persistent Asthma Without Complication Current Outpatient Medications Medication Sig omeprazole (PRILOSEC) 40 mg capsule Take 1 capsule by mouth once daily. montelukast (SINGULAIR) 10 mg tablet Take 10 mg by mouth daily at bedtime. hydroCHLOROthiazide 12.5 mg capsule Take 1 capsule by mouth once daily. potassium chloride SR (MICRO-K) 8 mEq cpER Take 1 capsule by mouth daily with breakfast. empagliflozin (JARDIANCE) 25 mg tablet Take 1 tablet by mouth once daily. Take 1 tablet once daily in the morning glipiZIDE (GLUCOTROL XL) 5 mg 24 hr tablet Take 1 tablet by mouth every morning. Take with meal. folic acid 1 mg tablet Take 2 tablets by mouth once daily. blood sugar diagnostic ([employer] ULTRA TEST) test strip Use as instructed amitriptyline (ELAVIL) 100 mg tablet Take 1 tablet by mouth every evening. atorvastatin (LIPITOR) 10 mg tablet Take 1 tablet by mouth daily at bedtime. For cholesterol. lancets (Taste [employer] DELICA LANCETS) 30 gauge Test blood sugar once daily. Dx: E11.9. Insulin: No fluticasone-vilanterol (BREO ELLIPTA) 200-25 mcg/dose inhaler Inhale 1 Inhalation as instructed once daily. albuterol HFA (PROVENTIL HFA, VENTOLIN HFA) 90 mcg/actuation inhaler Inhale 2 Puffs as instructed every 4 hours as needed for Wheezing/Shortness of Breath. fluticasone (FLONASE) 50 mcg/actuation nasal spray Use 1 [place] in each nostril once daily. Blood-Glucose Meter ([employer] ULTRA2) monitoring kit Use as directed to test blood sugar multivitamin tablet Take 1 tablet by mouth once daily. ustekinumab (STELARA) 130 mg/26 mL injection No current facility-administered medications for this visit. Objective BP 120/60 (BP Site: Right Arm, BP Position: Sitting, BP Cuff Size: Regular Adult) Pulse 95 Temp 36.6 C (97.8 F) (Tympanic) Resp 16 Wt 82.6 kg (182 lb) SpO2 97% BMI 30.29 kg/m Physical Exam Constitutional: Appearance: She is not ill-appearing. HENT: Head: Normocephalic. Cardiovascular: Rate and Rhythm: Normal rate and regular rhythm. Heart sounds: No murmur heard. No gallop. Pulmonary: Effort: Pulmonary effort is normal. Breath sounds: Normal breath sounds. Abdominal: Palpations: Abdomen is soft. Tenderness: There is no abdominal tenderness. Musculoskeletal: Left knee: Swelling present. Decreased range of motion. Comments: Left knee scar. Neurological: Mental Status: She is alert. Glucose meter data or log was reviewed for the past month. Average: 164. Patient was testing daily. Component Latest Ref Rng & Units 09/12/2021 Glucose 74 - 99 mg/dL 152 (H) BUN 7 - 21 mg/dL 14 Creatinine 0.58 - 0.96 mg/dL 0.70 Sodium 136 - 144 mmol/L 139 Potassium 3.7 - 5.1 mmol/L 3.5 (L) Chloride 97 - 105 mmol/L 99 CO2 22 - 30 mmol/L 26 Anion Gap 9 - 18 mmol/L 14 Calcium 8.5 - 10.2 mg/dL 10.2 eGFR >=60 mL/min/1.73m 99 Hemoglobin A1C 4.3 - 5.6 % 7.0 (H) Estimated Average Glucose mg/dL 154 Assessment and Plan 1. Fibromyalgia - ICD9: 729.1, ICD10: M79.7 (primary diagnosis) Shared medical decision making. Options including Savella were discussed. We agreed to simply increase dose of amitriptyline. Discussed medication dosage, usage, goals of therapy, and side effects. - AMITRIPTYLINE 150 MG TABLET 2. Type 2 diabetes mellitus with diabetic neuropathy, without long-term current use of insulin (HCC) - ICD9: 250.60, 357.2, ICD10: E11.40 improved control - EMPAGLIFLOZIN 25 MG TABLET - ATORVASTATIN 10 MG TABLET - COMP METABOLIC PANEL - LIPID PANEL BASIC - HGB A1C - GLIPIZIDE ER 10 MG TABLET, EXTENDED RELEASE 24 HR. Dose increased. Discussed medication dosage, usage, goals of therapy, and side effects. 3. Essential hypertension - ICD9: 401.9, ICD10: I10 - good control - Continue current medication(s) - Goal of BP <130/80 - CBC 4. Encounter for screening mammogram for malignant neoplasm of breast - ICD9: V76.12, ICD10: Z12.31 - [facility] SCREENING [facility] Zach Garcia MD documented in this encounter [facility] 07-08-2021 Instructions Jennifer Varghese APRN.CNS - 07/08/2021 10:52 AM EDT Check with her surgeon regarding timing of surgery and what to do with your medications prior to surgery. documented in this encounter [facility] 07-08-2021 History of Present illness Narrative SUBJECTIVE: SPIROMETRY Never done URINE ALBUMIN:CREATININE RATIO due on 07/19/2020 DILATED RETINAL EXAM due on 10/20/2020 COVID-19 VACCINE(4 - Booster for Pfizer series) due on 07/12/2021 HPI Leslie Rodriguez is a 60 year old female.PMH significant for ACTIVE PROBLEM LIST Essential Hypertension Esophageal Reflux Inflammatory Polyarthropathies (Hcc) Osteoarthritis of Right Knee Crohn's Disease, Colon (Hcc) Fibromyalgia Depressive Disorder Type 2 Diabetes Mellitus With Diabetic Neuropathy, Without Long-Term Current Use of Insulin (Hcc) Vitamin D Deficiency Anemia Moderate Persistent Asthma Without Complication PCP: Zach Garcia MD Presents for preoperative visit in internal medicine.She reports visit in May with EKG and labwork with Dr Bronson. 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 ACS NSQIP Surgical Risk Calculator 1. Age Group: < 65 years 2. Sex: female 3. Functional Status: Independent 4. Emergency Case: No 5. ASA Class: Mild systemic disease 6. Steroid use for chronic condition: No 7. Ascites within 30 days prior to surgery: No 8. Systemic Sepsis within 48 hours prior to surgery: None 9. Ventilator Dependent: No 10. Disseminated Cancer: No 11. Diabetes: Oral 12. Hypertension requiring medication: Yes 13. Congestive Heart Failure in 30 days prior to surgery: No 14. Dyspnea: With moderate exertion 15. Current Smoker within 1 Year: No 16. History of COPD: No 17. Dialysis: No 18. Acute Renal Failure: No 19. BMI Class Calculation: Obese 1 [facility] labwork: May 08, 2021 WBC 6.2 hemoglobin 13.8 hematocrit 43.2 platelets 195 sed rate 14 glucose 104 BUN 12 creatinine 0.81 total protein 7.9 albumin 3.8 globulin 4.1 calcium 9.2 AST 33 total bili 0.70 C-reactive protein 2.90 sodium 137 potassium 3.4 chloride 102 CO2 29 gap 6. Alkaline phosphatase 88 ALT 44 LDH 203. immunity testing completed. Hemoglobin A1c May 21, 2021 7.4% HTN: Without report of headache, chest pain, palpitations, dyspnea, peripheral edema, orthopnea, fatigue and PND. Last 3 Encounter BP Readings: Date: BP: 07/08/2021 132/72 05/02/2021 132/64 03/11/2021 127/71 Hyperlipidemia. Ms. Rodriguez reports doing well on current therapy Her most recent lipid panels are: Cholesterol, Total (mg/dL) Date Value 03/09/2021 109 09/01/2020 138 HDL Cholesterol (mg/dL) Date Value 03/09/2021 39 09/01/2020 44 LDL Cholesterol (mg/dL) Date Value 03/09/2021 50 09/01/2020 67 Triglyceride (mg/dL) Date Value 03/09/2021 99 09/01/2020 136 DIABETES MELLITUS: She notes improved blood sugar control, no blood sugars greater than 150 recently when checking at home. She notes occasional lightheadedness with walking otherwise no symptomatic complaints. Patient's last HgA1C was Hemoglobin A1C (%) Date Value 03/09/2021 8.1 09/01/2020 7.2 ) She reports history of Covid virus and asthma. She notes inhalers work well managing this, no recent exacerbation. Follows with dry dip worker at [facility], recently seen in the office, she notes given okay to proceed with surgery by dry dip worker. Review of Systems Respiratory: Positive for shortness of breath (SOBOE stable; at baseline). Objective BP 132/72 Pulse 92 Resp 16 Wt 84.4 kg (186 lb) BMI 30.95 kg/m Physical Exam ALLERGIES Allergen Reactions Doxycycline Monohyd* Hives, Swelling, Anaphylaxis Etodolac Rash, Swelling, Itching Asulfazine [Sulfasa* Rash Cefdinir Rash Sulfa Dyne Rash Medications montelukast (SINGULAIR) 10 mg tablet, Take 10 mg by mouth daily at bedtime. omeprazole (PRILOSEC) 40 mg capsule, Take 1 capsule by mouth once daily. hydroCHLOROthiazide 12.5 mg capsule, Take 1 capsule by mouth once daily. potassium chloride SR (MICRO-K) 8 mEq cpER, Take 1 capsule by mouth daily with breakfast. empagliflozin (JARDIANCE) 25 mg tablet, Take 1 tablet by mouth once daily. Take 1 tablet once daily in the morning glipiZIDE (GLUCOTROL XL) 5 mg 24 hr tablet, Take 1 tablet by mouth every morning. Take with meal. folic acid 1 mg tablet, Take 2 tablets by mouth once daily. omeprazole (PRILOSEC) 40 mg capsule, Take 1 capsule by mouth once daily. blood sugar diagnostic ([employer] ULTRA TEST) test strip, Use as instructed amitriptyline (ELAVIL) 100 mg tablet, Take 1 tablet by mouth every evening. atorvastatin (LIPITOR) 10 mg tablet, Take 1 tablet by mouth daily at bedtime. For cholesterol. lancets ([employer] DELICA LANCETS) 30 gauge, Test blood sugar once daily. Dx: E11.9. Insulin: No fluticasone-vilanterol (BREO ELLIPTA) 200-25 mcg/dose inhaler, Inhale 1 Inhalation as instructed once daily. ustekinumab (STELARA) 130 mg/26 mL injection, albuterol HFA (PROVENTIL HFA, VENTOLIN HFA) 90 mcg/actuation inhaler, Inhale 2 Puffs as instructed every 4 hours as needed for Wheezing/Shortness of Breath. fluticasone (FLONASE) 50 mcg/actuation nasal spray, Use 1 [place] in each nostril once daily. Blood-Glucose Meter ([employer] ULTRA2) monitoring kit, Use as directed to test blood sugar multivitamin tablet, Take 1 tablet by mouth once daily. PAST MEDICAL HISTORY Diagnosis Date Acute deep vein thrombosis (DVT) of tibial vein of left lower extremity (HCC) 08/10/2019 Cervicalgia 01/20/2006 Chronic cough 03/08/2020 COVID-19 virus infection 04/27/2020 Crohn disease (HCC) 07/04/2011 Diabetes mellitus ([facility]) 11/20/2009 Diarrhea Esophageal reflux 05/26/2008 Fibromyalgia 03/22/2004 HYPERTENSION NOS 05/26/2008 Inflammatory polyarthropathies ([facility]) 05/28/2011 Irritable bowel syndrome 01/18/2010 Irritable bowel Moderate persistent asthma without complication 09/18/2020 OBESITY NOS 05/26/2008 Palpitations 11/20/2009 Type 2 diabetes mellitus with diabetic neuropathy, without long-term current use of insulin ([facility]) 02/27/2016 Type II or unspecified type diabetes mellitus without mention of complication, not stated as uncontrolled 2009 PAST SURGICAL HISTORY Procedure Laterality Date ARTHRP KNE CONDYLE&PLATU MEDIAL&LAT COMPARTMENTS Right 06/15/2017 CHOLECYSTECTOMY 09/13/1973 Cholecystectomy COLONOSCOPY 03/21/2018 COLONOSCOPY 10/27/2019 COLONOSCOPY 01/24/2021 Dr. Sarah More COLONOSCOPY FLX DX W/COLLJ SPEC WHEN PFRMD 03/27/1997 Colonoscopy COLONOSCOPY FLX DX W/COLLJ SPEC WHEN PFRMD 06/26/2011 Colonoscopy [facility] COLONOSCOPY FLX DX W/COLLJ SPEC WHEN PFRMD 06/30/2014 Colonoscopy COLONOSCOPY FLX DX W/COLLJ SPEC WHEN PFRMD 06/22/2015 Colonoscopy EGD 03/21/2018 EGD 10/27/2019 EGD 01/24/2021 Dr. Sarah More ESOPHAGOGASTRODUODENOSCOPY TRANSORAL DIAGNOSTIC 06/30/2014 EGD KNEE ARTHROSCOPY/SURGERY Left 1979 KNEE ARTHROSCOPY/SURGERY Right 1989 LIG/TRNSXJ FLP TUBE ABDL/VAG APPR UNI/BI 10/10/1993 Tubal ligation NEUROPLASTY &/TRANSPOS MEDIAN NRV CARPAL TUNNE Left 2008 Carpal tunnel decomp PAST SURGICAL HISTORY OF 07/10/2004 debridement, felon, right index finger SIGMOIDOSCOPY FLX DX W/COLLJ SPEC BR/WA IF PFRMD 07/09/2011 Sigmoidoscopy, flexible VAGINAL HYSTERECTOMY UTERUS 250 GM/< 03/15/1996 FAMILY HISTORY Problem Relation Age of Onset Breast Cancer Mother other (brain aneurysm) Mother Ischemic Heart Disease Father Hypertension Father Diabetes Brother COPD Brother Coronary Artery Disease Brother other (CVA) Maternal Grandmother Breast Cancer Maternal Aunt Ischemic Heart Disease Brother Diabetes Sister Social History Tobacco Use Smoking status: Former Smoker Packs/day: 0.50 Years: 20.00 Pack years: 10.00 Types: Cigarettes Quit date: 04/26/2003 Years since quittin.2 Smokeless tobacco: Never Used Vaping Use Vaping Use: Never used Substance Use Topics Alcohol use: No Drug use: No ASSESSMENT/PLAN: 1. Preop exam for internal medicine - ICD9: V72.83, ICD10: Z01.818 She notes surgery to be completed by Dr. Charmaine Bronson at [facility] center July 28, 2021. Below average risk for surgery, 2.7% risk of serious complication, 3.6% of any complication by ACS NSQIP surgical risk calculator. EKG was completed at [facility] showed normal sinus rhythm. No need for additional testing other than lab work at this time. Recent lab work completed outside of [id number] window prior to surgery so can complete here or at [facility] per preference. Would like to do this today at Surgeons office to provide patient with time of surgery and recommendations regarding medications - she has another visit scheduled prior to surgery. - COMP METABOLIC PANEL - CBC + DIFF Will send note and labs to Dr Bronson Office. No pre-op paperwork available at the time of her visit. Jennifer Varghese APRN.CNS Medical Decision Making: Problems: Moderate: 2+ stable chronic illnesses Data: Unique test(s) ordered: 3+ Risk: Moderate: Moderate risk from testing/treatment Medical Decision Making Level: 4 - Moderate documented in this encounter [facility] 01-17-2021 Note Plan of Care Continue Current Plan of Care Progress with POC, as tolerated. Discussed plan of care with: patient Patient/caregiver agreeable with plan of care. Assessment Re-instructed patient in cough/throat clear reduction techniques (effortful swallow, RTB, water gargle/swallow), seltzer gargle technique to safely remove mucus and vocal wellness strategies to reduce cough/throat clear triggers and phono trauma. Clinician modeled a gargle/swallow and monitored patient performance based on reported poor compliance. She did state that the gargle lessened the feeling of secretions/mucous in her throat and reduced her urge to clear. Frequent redirection required throughout the session for patient to lower her volume. + mouth dryness noted and patient did mention that she often feels dry in her mouth and throat and admits that does also trigger throat clearing. Reviewed OTC mouth dryness products and encouraged patient try in order to lessen the dryness and triggering of cough/clearing. Patient in agreement. Finally, discussed increasing voice rest in order to promote vocal cord healing. Only minimal voicing is required at work. Instructed in a confidential voice for patient to use when voicing is necessary. Modeled and accurate patient follow through confirmed. All information from today's visit emailed to the patient to facilitate improved home follow through. Voice: Voice quality based on the GRBAS scale: 0=absent; 1=mild; 2=moderate; 3=severe Grade: 1 Roughness: 1 Breathiness: 0 Asthenia: 0 Strain: 1 Voice: level 5 initial Adult Risk Screening Initial Fall Risk Screening: LESLIE has not fallen in the last 6 months. LESLIE does not have a fear of falling. She does not need assistance with sitting, standing or walking. Does not need assistance walking in her home. She does not need assistance in an unfamiliar setting. The patient is not using an assistive device. Pain Scale: On a scale of 0 to 10, the patient rates the pain at 0. Insurance Insurance reviewed Visit number: 2 Onset Date: 2020 Subjective Living Environment: home - patient lives with family. Patient arrival: accompanied by daughter Patient reports working on reduction of phono trauma via use of a quieter voice, talking less and trying to avoid cough and throat clearing. She states her cough waxes and wanes and believes PND contributes. Objective Progress to date: meterman goals: Improve overall vocal health to foster increased participation levels at home, work and in the community environment. Short term goals: Patient will increase vocal wellness and decrease phono trauma in adherence with clinician prescribed vocal hygiene and wellness program per patient report 80% of his/her day. Patient will increase ability to produce voice without tension within 5 minute conversational task x 80% accuracy as judged by clinician observation and/or patient report. Patient will demonstrate independent use of voice techniques x 80% accuracy. Treatment Time in clinic started at 1600 Time in clinic ended at 1635 Total time in clinic is 35 minutes. Provided to: patient Response to education: verbalized understanding, demonstrated understanding and needs reinforcement Patient/caregiver verbalized understanding and agreement: yes CPT Code 66569 Treatment of speech, language AND voice Signatures Electronically signed by : Jessica Lim CCC-FASHION EDITOR; Jan 18 2021 10:03AM EST (Author) [employer] documented as of this encounter (statuses as of 07/08/2021) [facility] History of Past illness Narrative* Problem Noted Date Resolved Date COVID-19 virus infection 04/27/2020 021 Chronic cough 03/08/2020 05/03/2021 Acute deep vein thrombosis ( DVT) of tibial vein of left lower extremity 08/10/2019 03/08/2020 Neck pain 03/08/2015 02/23/2017 Diarrhea 06/30/2014 06/30/2014 Nausea alone 06/30/2014 06/30/2014 Calcaneal spur 12/15/2011 02/23/2017 Crohn disease 07/04/2011 02/23/2017 Last Assessment & Plan: Often with liquid loose stools- always within an hr of eating. Averages around 7 stools per day. Often eats eggs in the am, cut back on breads. Eating more fruit and nuts. Has followed with Dr. Chu in past. Denies any abd pain or black/red in her stools. Note intolerances to many meds in past- sulfa allergy. Diabetes mellitus 11/20/2009 02/23/2017 Last Assessment & Plan: Diabetes: Since She last visit she denies excessive thirst or increased frequency of urination, chest pain or dyspnea , numbness, tingling or pain in extremities, new or unusual visual symptoms and low sugar/hypoglycemic reactions. Follows a diabetic diet generally not very much. She is compliant with medication(s) and is tolerating med(s) without any side effects. She reports checking her glucose on a once a day schedule with sugars in the fasting 130-140 range. Patient's last HgA1C was HBA1C, [place] (%) Date Value 09/13/2011 6.2* 03/01/2011 6.6* Hemoglobin A1C (%) Date Value 02/11/2014 6.5* 11/12/2013 6.6* ) Last Ophthalmology exam was >1 yr ago- states making f/u appt. Last Podiatry exam was within the past 3 months Most Recent Immunizations Administered Date(s) Administered Influenza Vaccine, Split-Non Spec 01/05/2014 Pneumovax 05/28/2011 Tdap (Age 7+) 05/26/2008 Influenza vaccine given earlier in fall Chest pain, unspecified 11/20/2009 02/26/20 11 Palpitations 11/20/2009 07/19/2014 Dysmetabolic syndrome X 07/07/2008 11/21/19 10 Routine General Medical Exam ination at a Health Care Facility 05/26/2008 10/31/2011 Dermatophytosis of foot 05/26/2008 02/26/20 11 Obesity, Unspecified 05/26/2008 07/19/2014 Cervicalgia 01/20/2006 02/24/2011 Reflux 11/20/2009 Heartburn 02/24/2011 documented as of this encounter (statuses as of 09/13/2021) [facility] History of Past illness Narrative* Problem Noted Date Resolved Date COVID-19 virus infection 04/27/2020 021 Chronic cough 03/08/2020 05/03/2021 Acute deep vein thrombosis ( DVT) of tibial vein of left lower extremity 08/10/2019 03/08/2020 Neck pain 03/08/2015 02/23/2017 Diarrhea 06/30/2014 06/30/2014 Nausea alone 06/30/2014 06/30/2014 Calcaneal spur 12/15/2011 02/23/2017 Crohn disease 07/04/2011 02/23/2017 Last Assessment & Plan: Often with liquid loose stools- always within an hr of eating. Averages around 7 stools per day. Often eats eggs in the am, cut back on breads. Eating more fruit and nuts. Has followed with Dr. Chu in past. Denies any abd pain or black/red in her stools. Note intolerances to many meds in past- sulfa allergy. Diabetes mellitus 11/20/2009 02/23/2017 Last Assessment & Plan: Diabetes: Since She last visit she denies excessive thirst or increased frequency of urination, chest pain or dyspnea , numbness, tingling or pain in extremities, new or unusual visual symptoms and low sugar/hypoglycemic reactions. Follows a diabetic diet generally not very much. She is compliant with medication(s) and is tolerating med(s) without any side effects. She reports checking her glucose on a once a day schedule with sugars in the fasting 130-140 range. Patient's last HgA1C was HBA1C, [place] (%) Date Value 09/13/2011 6.2* 03/01/2011 6.6* Hemoglobin A1C (%) Date Value 02/11/2014 6.5* 11/12/2013 6.6* ) Last Ophthalmology exam was >1 yr ago- states making f/u appt. Last Podiatry exam was within the past 3 months Most Recent Immunizations Administered Date(s) Administered Influenza Vaccine, Split-Non Spec 01/05/2014 Pneumovax 05/28/2011 Tdap (Age 7+) 05/26/2008 Influenza vaccine given earlier in fall Chest pain, unspecified 11/20/2009 02/26/20 11 Palpitations 11/20/2009 07/19/2014 Dysmetabolic syndrome X 07/07/2008 11/21/19 10 Routine General Medical Exam ination at a Health Care Facility 05/26/2008 10/31/2011 Dermatophytosis of foot 05/26/2008 02/26/20 11 Obesity, Unspecified 05/26/2008 07/19/2014 Cervicalgia 01/20/2006 02/24/2011 Reflux 11/20/2009 Heartburn 02/24/2011 documented as of this encounter (statuses as of 12/02/2021) [facility] History of Past illness Narrative* Problem Noted Date Resolved Date COVID-19 virus infection 04/27/2020 021 Chronic cough 03/08/2020 05/03/2021 Acute deep vein thrombosis ( DVT) of tibial vein of left lower extremity 08/10/2019 03/08/2020 Neck pain 03/08/2015 02/23/2017 Diarrhea 06/30/2014 06/30/2014 Nausea alone 06/30/2014 06/30/2014 Calcaneal spur 12/15/2011 02/23/2017 Crohn disease 07/04/2011 02/23/2017 Last Assessment & Plan: Often with liquid loose stools- always within an hr of eating. Averages around 7 stools per day. Often eats eggs in the am, cut back on breads. Eating more fruit and nuts. Has followed with Dr. Chu in past. Denies any abd pain or black/red in her stools. Note intolerances to many meds in past- sulfa allergy. Diabetes mellitus 11/20/2009 02/23/2017 Last Assessment & Plan: Diabetes: Since She last visit she denies excessive thirst or increased frequency of urination, chest pain or dyspnea , numbness, tingling or pain in extremities, new or unusual visual symptoms and low sugar/hypoglycemic reactions. Follows a diabetic diet generally not very much. She is compliant with medication(s) and is tolerating med(s) without any side effects. She reports checking her glucose on a once a day schedule with sugars in the fasting 130-140 range. Patient's last HgA1C was HBA1C, Fontanelle (%) Date Value 09/13/2011 6.2* 03/01/2011 6.6* Hemoglobin A1C (%) Date Value 02/11/2014 6.5* 11/12/2013 6.6* ) Last Ophthalmology exam was >1 yr ago- states making f/u appt. Last Podiatry exam was within the past 3 months Most Recent Immunizations Administered Date(s) Administered Influenza Vaccine, Split-Non Spec 01/05/2014 Pneumovax 05/28/2011 Tdap (Age 7+) 05/26/2008 Influenza vaccine given earlier in fall Chest pain, unspecified 11/20/2009 02/26/20 11 Palpitations 11/20/2009 07/19/2014 Dysmetabolic syndrome X 07/07/2008 11/21/19 10 Routine General Medical Exam ination at a Health Care Facility 05/26/2008 10/31/2011 Dermatophytosis of foot 05/26/2008 02/26/20 11 Obesity, Unspecified 05/26/2008 07/19/2014 Cervicalgia 01/20/2006 02/24/2011 Reflux 11/20/2009 Heartburn 02/24/2011 documented as of this encounter (statuses as of 12/13/2021) [facility]01-22-2021 History of Past illness Narrative* Problem Noted Date Resolved Date COVID-19 virus infection 04/27/2020 021 Chronic cough 03/08/2020 05/03/2021 Acute deep vein thrombosis ( DVT) of tibial vein of left lower extremity 08/10/2019 03/08/2020 Neck pain 03/08/2015 02/23/2017 Diarrhea 06/30/2014 06/30/2014 Nausea alone 06/30/2014 06/30/2014 Calcaneal spur 12/15/2011 02/23/2017 Crohn disease 07/04/2011 02/23/2017 Last Assessment & Plan: Often with liquid loose stools- always within an hr of eating. Averages around 7 stools per day. Often eats eggs in the am, cut back on breads. Eating more fruit and nuts. Has followed with Dr. Chu in past. Denies any abd pain or black/red in her stools. Note intolerances to many meds in past- sulfa allergy. Diabetes mellitus 11/20/2009 02/23/2017 Last Assessment & Plan: Diabetes: Since She last visit she denies excessive thirst or increased frequency of urination, chest pain or dyspnea , numbness, tingling or pain in extremities, new or unusual visual symptoms and low sugar/hypoglycemic reactions. Follows a diabetic diet generally not very much. She is compliant with medication(s) and is tolerating med(s) without any side effects. She reports checking her glucose on a once a day schedule with sugars in the fasting 130-140 range. Patient's last HgA1C was HBA1C, Fontanelle (%) Date Value 09/13/2011 6.2* 03/01/2011 6.6* Hemoglobin A1C (%) Date Value 02/11/2014 6.5* 11/12/2013 6.6* ) Last Ophthalmology exam was >1 yr ago- states making f/u appt. Last Podiatry exam was within the past 3 months Most Recent Immunizations Administered Date(s) Administered Influenza Vaccine, Split-Non Spec 01/05/2014 Pneumovax 05/28/2011 Tdap (Age 7+) 05/26/2008 Influenza vaccine given earlier in fall Chest pain, unspecified 11/20/2009 02/26/20 11 Palpitations 11/20/2009 07/19/2014 Dysmetabolic syndrome X 07/07/2008 11/21/19 10 Routine General Medical Exam ination at a Health Care Facility 05/26/2008 10/31/2011 Dermatophytosis of foot 05/26/2008 02/26/20 11 Obesity, Unspecified 05/26/2008 07/19/2014 Cervicalgia 01/20/2006 02/24/2011 Reflux 11/20/2009 Heartburn 02/24/2011 documented as of this encounter (statuses as of 01/31/2022) [facility]01-[facility]21 History of Past illness Narrative* Problem Noted Date Resolved Date COVID-19 virus infection 04/27/2020 021 Chronic cough 03/08/2020 05/03/2021 Acute deep vein thrombosis ( DVT) of tibial vein of left lower extremity 08/10/2019 03/08/2020 Neck pain 03/08/2015 02/23/2017 Diarrhea 06/30/2014 06/30/2014 Nausea alone 06/30/2014 06/30/2014 Calcaneal spur 12/15/2011 02/23/2017 Crohn disease 07/04/2011 02/23/2017 Last Assessment & Plan: Often with liquid loose stools- always within an hr of eating. Averages around 7 stools per day. Often eats eggs in the am, cut back on breads. Eating more fruit and nuts. Has followed with Dr. Chu in past. Denies any abd pain or black/red in her stools. Note intolerances to many meds in past- sulfa allergy. Diabetes mellitus 11/20/2009 02/23/2017 Last Assessment & Plan: Diabetes: Since She last visit she denies excessive thirst or increased frequency of urination, chest pain or dyspnea , numbness, tingling or pain in extremities, new or unusual visual symptoms and low sugar/hypoglycemic reactions. Follows a diabetic diet generally not very much. She is compliant with medication(s) and is tolerating med(s) without any side effects. She reports checking her glucose on a once a day schedule with sugars in the fasting 130-140 range. Patient's last HgA1C was HBA1C, Tommie (%) Date Value 09/13/2011 6.2* 03/01/2011 6.6* Hemoglobin A1C (%) Date Value 02/11/2014 6.5* 11/12/2013 6.6* ) Last Ophthalmology exam was >1 yr ago- states making f/u appt. Last Podiatry exam was within the past 3 months Most Recent Immunizations Administered Date(s) Administered Influenza Vaccine, Split-Non Spec 01/05/2014 Pneumovax 05/28/2011 Tdap (Age 7+) 05/26/2008 Influenza vaccine given earlier in fall Chest pain, unspecified 11/20/2009 02/26/20 11 Palpitations 11/20/2009 07/19/2014 Dysmetabolic syndrome X 07/07/2008 11/21/19 10 Routine General Medical Exam ination at a Health Care Facility 05/26/2008 10/31/2011 Dermatophytosis of foot 05/26/2008 02/26/20 11 Obesity, Unspecified 05/26/2008 07/19/2014 Cervicalgia 01/20/2006 02/24/2011 Reflux 11/20/2009 Heartburn 02/24/2011 documented as of this encounter (statuses as of 03/26/2022) [facility]01-[facility] History of Past illness Narrative* Problem Noted Date Resolved Date COVID-19 virus infection 04/27/2020 021 Chronic cough 03/08/2020 05/03/2021 Acute deep vein thrombosis ( DVT) of tibial vein of left lower extremity 08/10/2019 03/08/2020 Neck pain 03/08/2015 02/23/2017 Diarrhea 06/30/2014 06/30/2014 Nausea alone 06/30/2014 06/30/2014 Calcaneal spur 12/15/2011 02/23/2017 Crohn disease 07/04/2011 02/23/2017 Last Assessment & Plan: Often with liquid loose stools- always within an hr of eating. Averages around 7 stools per day. Often eats eggs in the am, cut back on breads. Eating more fruit and nuts. Has followed with Dr. Chu in past. Denies any abd pain or black/red in her stools. Note intolerances to many meds in past- sulfa allergy. Diabetes mellitus 11/20/2009 02/23/2017 Last Assessment & Plan: Diabetes: Since She last visit she denies excessive thirst or increased frequency of urination, chest pain or dyspnea , numbness, tingling or pain in extremities, new or unusual visual symptoms and low sugar/hypoglycemic reactions. Follows a diabetic diet generally not very much. She is compliant with medication(s) and is tolerating med(s) without any side effects. She reports checking her glucose on a once a day schedule with sugars in the fasting 130-140 range. Patient's last HgA1C was HBA1C, Tommie (%) Date Value 09/13/2011 6.2* 03/01/2011 6.6* Hemoglobin A1C (%) Date Value 02/11/2014 6.5* 11/12/2013 6.6* ) Last Ophthalmology exam was >1 yr ago- states making f/u appt. Last Podiatry exam was within the past 3 months Most Recent Immunizations Administered Date(s) Administered Influenza Vaccine, Split-Non Spec 01/05/2014 Pneumovax 05/28/2011 Tdap (Age 7+) 05/26/2008 Influenza vaccine given earlier in fall Chest pain, unspecified 11/20/2009 02/26/20 11 Palpitations 11/20/2009 07/19/2014 Dysmetabolic syndrome X 07/07/2008 11/21/19 10 Routine General Medical Exam ination at a Health Care Facility 05/26/2008 10/31/2011 Dermatophytosis of foot 05/26/2008 02/26/20 11 Obesity, Unspecified 05/26/2008 07/19/2014 Cervicalgia 01/20/2006 02/24/2011 Reflux 11/20/2009 Heartburn 02/24/2011 documented as of this encounter (statuses as of 05/02/2022) [facility]01[facility] History of Past illness Narrative* Problem Noted Date Resolved Date COVID-19 virus infection 04/27/2020 021 Chronic cough 03/08/2020 05/03/2021 Acute deep vein thrombosis ( DVT) of tibial vein of left lower extremity 08/10/2019 03/08/2020 Neck pain 03/08/2015 02/23/2017 Diarrhea 06/30/2014 06/30/2014 Nausea alone 06/30/2014 06/30/2014 Calcaneal spur 12/15/2011 02/23/2017 Crohn disease 07/04/2011 02/23/2017 Last Assessment & Plan: Often with liquid loose stools- always within an hr of eating. Averages around 7 stools per day. Often eats eggs in the am, cut back on breads. Eating more fruit and nuts. Has followed with Dr. Chu in past. Denies any abd pain or black/red in her stools. Note intolerances to many meds in past- sulfa allergy. Diabetes mellitus 11/20/2009 02/23/2017 Last Assessment & Plan: Diabetes: Since She last visit she denies excessive thirst or increased frequency of urination, chest pain or dyspnea , numbness, tingling or pain in extremities, new or unusual visual symptoms and low sugar/hypoglycemic reactions. Follows a diabetic diet generally not very much. She is compliant with medication(s) and is tolerating med(s) without any side effects. She reports checking her glucose on a once a day schedule with sugars in the fasting 130-140 range. Patient's last HgA1C was HBA1C, Tommie (%) Date Value 09/13/2011 6.2* 03/01/2011 6.6* Hemoglobin A1C (%) Date Value 02/11/2014 6.5* 11/12/2013 6.6* ) Last Ophthalmology exam was >1 yr ago- states making f/u appt. Last Podiatry exam was within the past 3 months Most Recent Immunizations Administered Date(s) Administered Influenza Vaccine, Split-Non Spec 01/05/2014 Pneumovax 05/28/2011 Tdap (Age 7+) 05/26/2008 Influenza vaccine given earlier in fall Chest pain, unspecified 11/20/2009 02/26/20 11 Palpitations 11/20/2009 07/19/2014 Dysmetabolic syndrome X 07/07/2008 11/21/19 10 Routine General Medical Exam ination at a Health Care Facility 05/26/2008 10/31/2011 Dermatophytosis of foot 05/26/2008 02/26/20 11 Obesity, Unspecified 05/26/2008 07/19/2014 Cervicalgia 01/20/2006 02/24/2011 Reflux 11/20/2009 Heartburn 02/24/2011 documented as of this encounter (statuses as of 08/18/2022) [facility]01[facility] History of Past illness Narrative* Problem Noted Date Resolved Date COVID-19 virus infection 04/27/2020 021 Chronic cough 03/08/2020 05/03/2021 Acute deep vein thrombosis ( DVT) of tibial vein of left lower extremity 08/10/2019 03/08/2020 Neck pain 03/08/2015 02/23/2017 Diarrhea 06/30/2014 06/30/2014 Nausea alone 06/30/2014 06/30/2014 Calcaneal spur 12/15/2011 02/23/2017 Crohn disease 07/04/2011 02/23/2017 Last Assessment & Plan: Often with liquid loose stools- always within an hr of eating. Averages around 7 stools per day. Often eats eggs in the am, cut back on breads. Eating more fruit and nuts. Has followed with Dr. Chu in past. Denies any abd pain or black/red in her stools. Note intolerances to many meds in past- sulfa allergy. Diabetes mellitus 11/20/2009 02/23/2017 Last Assessment & Plan: Diabetes: Since She last visit she denies excessive thirst or increased frequency of urination, chest pain or dyspnea , numbness, tingling or pain in extremities, new or unusual visual symptoms and low sugar/hypoglycemic reactions. Follows a diabetic diet generally not very much. She is compliant with medication(s) and is tolerating med(s) without any side effects. She reports checking her glucose on a once a day schedule with sugars in the fasting 130-140 range. Patient's last HgA1C was HBA1C, Fontanelle (%) Date Value 09/13/2011 6.2* 03/01/2011 6.6* Hemoglobin A1C (%) Date Value 02/11/2014 6.5* 11/12/2013 6.6* ) Last Ophthalmology exam was >1 yr ago- states making f/u appt. Last Podiatry exam was within the past 3 months Most Recent Immunizations Administered Date(s) Administered Influenza Vaccine, Split-Non Spec 01/05/2014 Pneumovax 05/28/2011 Tdap (Age 7+) 05/26/2008 Influenza vaccine given earlier in fall Chest pain, unspecified 11/20/2009 02/26/20 11 Palpitations 11/20/2009 07/19/2014 Dysmetabolic syndrome X 07/07/2008 11/21/19 10 Routine General Medical Exam ination at a Health Care Facility 05/26/2008 10/31/2011 Dermatophytosis of foot 05/26/2008 02/26/20 11 Obesity, Unspecified 05/26/2008 07/19/2014 Cervicalgia 01/20/2006 02/24/2011 Reflux 11/20/2009 Heartburn 02/24/2011 documented as of this encounter (statuses as of 09/18/2022) [facility]01[facility] History of Past illness Narrative* Problem Noted Date Resolved Date COVID-19 virus infection 04/27/2020 021 Chronic cough 03/08/2020 05/03/2021 Acute deep vein thrombosis ( DVT) of tibial vein of left lower extremity 08/10/2019 03/08/2020 Neck pain 03/08/2015 02/23/2017 Diarrhea 06/30/2014 06/30/2014 Nausea alone 06/30/2014 06/30/2014 Calcaneal spur 12/15/2011 02/23/2017 Crohn disease 07/04/2011 02/23/2017 Last Assessment & Plan: Often with liquid loose stools- always within an hr of eating. Averages around 7 stools per day. Often eats eggs in the am, cut back on breads. Eating more fruit and nuts. Has followed with Dr. Chu in past. Denies any abd pain or black/red in her stools. Note intolerances to many meds in past- sulfa allergy. Diabetes mellitus 11/20/2009 02/23/2017 Last Assessment & Plan: Diabetes: Since She last visit she denies excessive thirst or increased frequency of urination, chest pain or dyspnea , numbness, tingling or pain in extremities, new or unusual visual symptoms and low sugar/hypoglycemic reactions. Follows a diabetic diet generally not very much. She is compliant with medication(s) and is tolerating med(s) without any side effects. She reports checking her glucose on a once a day schedule with sugars in the fasting 130-140 range. Patient's last HgA1C was HBA1C, Tommie (%) Date Value 09/13/2011 6.2* 03/01/2011 6.6* Hemoglobin A1C (%) Date Value 02/11/2014 6.5* 11/12/2013 6.6* ) Last Ophthalmology exam was >1 yr ago- states making f/u appt. Last Podiatry exam was within the past 3 months Most Recent Immunizations Administered Date(s) Administered Influenza Vaccine, Split-Non Spec 01/05/2014 Pneumovax 05/28/2011 Tdap (Age 7+) 05/26/2008 Influenza vaccine given earlier in fall Chest pain, unspecified 11/20/2009 02/26/20 11 Palpitations 11/20/2009 07/19/2014 Dysmetabolic syndrome X 07/07/2008 11/21/19 10 Routine General Medical Exam ination at a Health Care Facility 05/26/2008 10/31/2011 Dermatophytosis of foot 05/26/2008 02/26/20 11 Obesity, Unspecified 05/26/2008 07/19/2014 Cervicalgia 01/20/2006 02/24/2011 Reflux 11/20/2009 Heartburn 02/24/2011 documented as of this encounter (statuses as of 09/25/2022) [facility]01[facility] History of Past illness Narrative* Problem Noted Date Diagnosed Date Resolved Date COVID-19 virus infection 04/27/202006/2020 Chronic cough 03/08/2020 05/03/2021 Acute deep vein thrombosis ( DVT) of tibial vein of left lower extremity 08/10/2019 03/08/2020 Neck pain 03/08/2015 02/23/2017 Diarrhea 06/30/2014 06/30/2014 Nausea alone 06/30/2014 06/30/2014 Calcaneal spur 12/15/2011 02/23/2017 Crohn disease 07/04/2011 02/23/2017 Last Assessment & Plan: Often with liquid loose stools- always within an hr of eating. Averages around 7 stools per day. Often eats eggs in the am, cut back on breads. Eating more fruit and nuts. Has followed with Dr. Chu in past. Denies any abd pain or black/red in her stools. Note intolerances to many meds in past- sulfa allergy. Diabetes mellitus 11/20/2009 02/23/2017 Last Assessment & Plan: Diabetes: Since She last visit she denies excessive thirst or increased frequency of urination, chest pain or dyspnea , numbness, tingling or pain in extremities, new or unusual visual symptoms and low sugar/hypoglycemic reactions. Follows a diabetic diet generally not very much. She is compliant with medication(s) and is tolerating med(s) without any side effects. She reports checking her glucose on a once a day schedule with sugars in the fasting 130-140 range. Patient's last HgA1C was HBA1C, Fontan[place] (%) Date Value 09/13/2011 6.2* 03/01/2011 6.6* Hemoglobin A1C (%) Date Value 02/11/2014 6.5* 11/12/2013 6.6* ) Last Ophthalmology exam was >1 yr ago- states making f/u appt. Last Podiatry exam was within the past 3 months Most Recent Immunizations Administered Date(s) Administered Influenza Vaccine, Split-Non Spec 01/05/2014 Pneumovax 05/28/2011 Tdap (Age 7+) 05/26/2008 Influenza vaccine given earlier in fall Chest pain, unspecified 11/20/200902/05 Palpitations 11/20/2009 07/19/2014 Dysmetabolic syndrome X 07/07/200811/04 Routine General Medical Exam ination at a Health Care Facility 05/26/2008 10/31/2011 Dermatophytosis of foot 05/26/200802/05 Obesity, Unspecified 05/26/2008 015 Cervicalgia 01/20/2006 02/24/2011 Reflux 11/20/2009 Heartburn 02/24/2011 documented as of this encounter (statuses as of 12/22/2022) [facility]01[facility] History of Past illness Narrative* Problem Noted Date Diagnosed Date Resolved Date COVID-19 virus infection 04/27/202006/2020 Chronic cough 03/08/2020 05/03/2021 Acute deep vein thrombosis ( DVT) of tibial vein of left lower extremity 08/10/2019 03/08/2020 Neck pain 03/08/2015 02/23/2017 Diarrhea 06/30/2014 06/30/2014 Nausea alone 06/30/2014 06/30/2014 Calcaneal spur 12/15/2011 02/23/2017 Crohn disease 07/04/2011 02/23/2017 Last Assessment & Plan: Often with liquid loose stools- always within an hr of eating. Averages around 7 stools per day. Often eats eggs in the am, cut back on breads. Eating more fruit and nuts. Has followed with Dr. Chu in past. Denies any abd pain or black/red in her stools. Note intolerances to many meds in past- sulfa allergy. Diabetes mellitus 11/20/2009 02/23/2017 Last Assessment & Plan: Diabetes: Since She last visit she denies excessive thirst or increased frequency of urination, chest pain or dyspnea , numbness, tingling or pain in extremities, new or unusual visual symptoms and low sugar/hypoglycemic reactions. Follows a diabetic diet generally not very much. She is compliant with medication(s) and is tolerating med(s) without any side effects. She reports checking her glucose on a once a day schedule with sugars in the fasting 130-140 range. Patient's last HgA1C was HBA1C, Fontan[place] (%) Date Value 09/13/2011 6.2* 03/01/2011 6.6* Hemoglobin A1C (%) Date Value 02/11/2014 6.5* 11/12/2013 6.6* ) Last Ophthalmology exam was >1 yr ago- states making f/u appt. Last Podiatry exam was within the past 3 months Most Recent Immunizations Administered Date(s) Administered Influenza Vaccine, Split-Non Spec 01/05/2014 Pneumovax 05/28/2011 Tdap (Age 7+) 05/26/2008 Influenza vaccine given earlier in fall Chest pain, unspecified 11/20/200902/05 Palpitations 11/20/2009 07/19/2014 Dysmetabolic syndrome X 07/07/200811/04 Routine General Medical Exam ination at a Health Care Facility 05/26/2008 10/31/2011 Dermatophytosis of foot 05/26/200802/05 Obesity, Unspecified 05/26/2008 015 Cervicalgia 01/20/2006 02/24/2011 Reflux 11/20/2009 Heartburn 02/24/2011 documented as of this encounter (statuses as of 12/23/2022) [facility] History of Past illness Narrative* Problem Noted Date Diagnosed Date Resolved Date COVID-19 virus infection 04/27/202006/2020 Chronic cough 03/08/2020 05/03/2021 Acute deep vein thrombosis ( DVT) of tibial vein of left lower extremity 08/10/2019 03/08/2020 Neck pain 03/08/2015 02/23/2017 Diarrhea 06/30/2014 06/30/2014 Nausea alone 06/30/2014 06/30/2014 Calcaneal spur 12/15/2011 02/23/2017 Crohn disease 07/04/2011 02/23/2017 Last Assessment & Plan: Often with liquid loose stools- always within an hr of eating. Averages around 7 stools per day. Often eats eggs in the am, cut back on breads. Eating more fruit and nuts. Has followed with Dr. Chu in past. Denies any abd pain or black/red in her stools. Note intolerances to many meds in past- sulfa allergy. Diabetes mellitus 11/20/2009 02/23/2017 Last Assessment & Plan: Diabetes: Since She last visit she denies excessive thirst or increased frequency of urination, chest pain or dyspnea , numbness, tingling or pain in extremities, new or unusual visual symptoms and low sugar/hypoglycemic reactions. Follows a diabetic diet generally not very much. She is compliant with medication(s) and is tolerating med(s) without any side effects. She reports checking her glucose on a once a day schedule with sugars in the fasting 130-140 range. Patient's last HgA1C was HBA1C Tommie (%) Date Value 09/13/2011 6.2* 03/01/2011 6.6* Hemoglobin A1C (%) Date Value 02/11/2014 6.5* 11/12/2013 6.6* ) Last Ophthalmology exam was >1 yr ago- states making f/u appt. Last Podiatry exam was within the past 3 months Most Recent Immunizations Administered Date(s) Administered Influenza Vaccine, Split-Non Spec 01/05/2014 Pneumovax 05/28/2011 Tdap (Age 7+) 05/26/2008 Influenza vaccine given earlier in fall Chest pain, unspecified 11/20/200902/05 Palpitations 11/20/2009 07/19/2014 Dysmetabolic syndrome X 07/07/200811/04 Routine General Medical Exam ination at a Health Care Facility 05/26/2008 10/31/2011 Dermatophytosis of foot 05/26/200802/05 Obesity, Unspecified 05/26/2008 015 Cervicalgia 01/20/2006 02/24/2011 Reflux 11/20/2009 Heartburn 02/24/2011 documented as of this encounter (statuses as of 01/03/2023) [facility] History of Present illness Narrative* LESLIE RODRIGUEZ is a 60 year female referred to me today by Dr. 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 Patient reports persistent hoarseness since she had pneumonia 06/2019. Before the PNA occasional hoarseness for short periods of time. Coughed very harshly for 3 months. Cough 80% betterwith persistent throat clearing. Mouth dryness which leads to dry throat and increases her raspiness. Uses the spirometer to help loosen phlegm followed by cough especially at night. Often notices thick mucous in the am. Poor sleep - falls asleep okay but wakes throughout the night. Unsure why - may be the mouth dryness per the patient. Works second shift at [employer]. Uses amitriptyline tohelp sleep. * PMH: N/a * FHx: reviewed and non-contributory to current complaint. * I personally reviewed the patient AEMR notes, and consult notes from Dr. An * ROS performed. All other systems are reviewed and are negative for complaint and as noted above. [id number] [address] Work Phone: [phone] [phone] History of Present illness Narrative* LESLIE RODRIGUEZ is a 60 year female referred to me today by Dr. 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 Patient reports persistent hoarseness since she had pneumonia 06/2019. Before the PNAoccasional hoarseness for short periods of time. Coughed very harshly for 3 months. Cough 80% better with persistent throat clearing. Mouth dryness which leads to dry throat and increases her raspiness. Uses the spirometer to help loosen phlegm followed by cough especially at night. Often notices thick mucous in the am. Poor sleep - falls asleep okay but wakes throughout the night. Unsure why - may be the mouth dryness per the patient. Works second shift at [employer]. Uses amitriptyline to help sleep. * PMH: N/a * FHx: reviewed and non-contributory to current complaint. * I personally reviewed the patient AEMR notes, and consult notes from Dr. An * ROS performed. All other systems are reviewed and are negative for complaint and as noted above. [facility] [address] Work Phone: [phone] History of Present illness Narrative* LESLIE RODRIGUEZ is a 60 year female referred to me today by Dr. 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 Patient reports persistent hoarseness since she had pneumonia 06/2019. Before the PNAoccasional hoarseness for short periods of time. Coughed very harshly for 3 months. Cough 80% better with persistent throat clearing. Mouth dryness which leads to dry throat and increases her raspiness. Uses the spirometer to help loosen phlegm followed by cough especially at night. Often notices thick mucous in the am. Poor sleep - falls asleep okay but wakes throughout the night. Unsure why - may be the mouth dryness per the patient. Works second shift at [employer]. Uses amitriptyline to help sleep. * PMH: N/a * FHx: reviewed and non-contributory to current complaint. * I personally reviewed the patient AEMR notes, and consult notes from Dr. An * ROS performed. All other systems are reviewed and are negative for complaint and as noted above. [facility]lfhzgp[facility] 0[address] Work Phone: Evaluation note* Diagnosis Preop exam for internal medicine- Primary Other specified pre-operative examination [facility] Diagnosis Fibromyalgia- Primary Mylagia and myositis, unspecified Type 2 diabetes mellitus with diabetic neuropathy, without long-term current use of insulin (HCC) Essential hypertension Unspecified essential hypertension Encounter for screening mammogram for malignant neoplasm of breast Other screening mammogram [facility] Diagnosis Essential hypertension Unspecified essential hypertension Gastroesophageal reflux disease, unspecified whether esophagitis present [facility] Diagnosis Type 2 diabetes mellitus with diabetic neuropathy, without long-term current use of insulin (HCC) [facility] Diagnosis Encounter for screening mammogram for breast cancer [facility]* Diagnosis Gastroesophageal reflux disease, unspecified whether esophagitis present Type 2 diabetes mellitus with diabetic neuropathy, without long-term current use of insulin (HCC) [facility]* Diagnosis Disequilibrium- Primary Dizziness and giddiness Moderate persistent asthma without complication Unspecified asthma Type 2 diabetes mellitus with diabetic neuropathy, without long-term current use of insulin (HCC) Essential hypertension Unspecified essential hypertension Encounter for screening mammogram for malignant neoplasm of breast Other screening mammogram History of falling Personal history of fall Fibromyalgia Mylagia and myositis, unspecified Need for vaccination Need for prophylactic vaccination and inoculation against unspecified single disease [facility] Diagnosis Essential hypertension Unspecified essential hypertension [facility]* Diagnosis Type 2 diabetes mellitus with diabetic neuropathy, without long-term current use of insulin (HCC) Gastroesophageal reflux disease, unspecified whether esophagitis present Essential hypertension Unspecified essential hypertension [facility] N[facility]ative* Re-instructed patient in cough/throat clear reduction techniques (effortful swallow, RTB, water vanesa le/swallow), seltzer gargle technique to safely remove mucus and vocal wellness strategies to reduce cough/throat clear triggers and phono trauma. Clinician modeled a gargle/swallow and monitored patient performance based on reported poor compliance. She did state that the gargle lessened the feeling of secretions/mucous in her throat and reduced her urge to clear. Frequent redirection required throughout the session for patient to lower her volume. + mouth dryness noted and patient did mentionthat she often feels dry in her mouth and throat and admits that does also trigger throat clearing.Reviewed OTC mouth dryness products and encouraged patient try in order to lessen the dryness and triggering of cough/clearing. Patient in agreement. Finally, discussed increasing voice rest in orderto promote vocal cord healing. Only minimal voicing is required at work. Instructed in a confidential voice for patient to use when voicing is necessary. Modeled and accurate patient follow through confirmed. * All information from today's visit emailed to the patient to facilitate improved home follow through. * Voice: Voice quality based on the GRBAS scale: 0=absent; 1=mild; 2=moderate; 3=severe * Grade: 1 * Roughness: 1 * Breathiness: 0 * Asthenia: 0 * Strain: 1 * Voice: level 5 initial [facility] [address] Work Phone: [facility] Diagnostic Procedure Only (Routine) - Pending Review Specialty Diagnoses / Procedures Referred By Alba christian Referred To Contact [facility] Diagnoses Encounter for screening mammogram for malignant neoplasm of breast Procedures GABO SCREENING W PRAVEENA SCREENING DIGITAL BREAST TOMOSYNTHESIS BI SCREENING MAMMOGRAPHY BI 2-VIEW BREAST INC Zach Matos MD [address] [place] [address] Imaging [address] [address] Referral ID Status Reason Start Date Expiration Date Visits Requested Visits Authorized [id number] Pending Review Auto-Generat ed Referral 09/13/2021 10/13/2022 1 1 [facility] for referral (narrative)* Diagnostic Procedure Only (Routine) - Pending Review Specialty Diagnoses / Procedures Referred By Alba christian Referred To Contact [facility] Diagnoses Encounter for screening mammogram for breast cancer Procedures GABO SCREENING W RPAVEENA SCREENING DIGITAL BREAST TOMOSYNTHESIS BI SCREENING MAMMOGRAPHY BI 2-VIEW BREAST INC Zach Matos MD [facility] [place] [address] Br [facility] [place] [address] Referral ID Status Reason Start Date Expiration Date Visits Requested Visits Authorized [id number] Pending Review Auto-Generat ed Referral 08/13/2022 09/12/2023 [address] 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 Advance Directive(s) 11/11/2019 11:24 AM me john Advance Directive(s) 11/01/2019 1:20 PM Advance Directive(s) 06/22/2015 9:11 AM Advance Directive(s) 06/13/2015 10:35 AM Chief Complaint HoarsenessHoarsenessHoarseness Reason for Referral Specialty Diagnoses / Procedures Referred By Alba christian Referred To Contact Physical Therapy Diagnoses Disequilibrium History of falling Procedures CONSULT TO PHYSICAL THERAPY Zach Garcia MD [address] [place] [address] Referral ID Status Reason Start Date Expiration Date Visits Requested Visits Authorized [id number] Ref Not Required PCP Requested Referral 09/24/2022 09/24/2023 1 1 Specialty Diagnoses / Procedures Referred By Alba christian Referred To Contact [facility] Diagnoses Encounter for screening mammogram for malignant neoplasm of breast Procedures GABO SCREENING W PRAVEENA SCREENING DIGITAL BREAST TOMOSYNTHESIS BI SCREENING MAMMOGRAPHY BI 2-VIEW BREAST INC CAD Zach Garcia MD [address] [place] [address] Br Imaging [address] [place] [address] Referral ID Status Reason Start Date Expiration Date Visits Requested Visits Authorized [id number] Pending Review Auto-Generat ed Referral 09/24/2022 10/24/2023 1 1 Additional Source Comments INFORMATION SOURCE (unrecogn ized section and content) DATE CREATED AUTHOR AUTHOR'S ORGANIZ ATION 07/11/[address] [facility] DATE CREATED AUTHOR AUTHOR'S ORGANIZ ATION 01/19/2021 [facility] DATE CREATED AUTHOR AUTHOR'S ORGANIZ ATION 07/20/2021 [facility] DATE CREATED AUTHOR AUTHOR'S ORGANIZ ATION 04/10/2023 [facility] Source Comments (unrecognize d section and content) In the event this informatio n is protected by the Federal Confidentiality of Alcohol and Drug Abuse Patient Records regulations: The Federal rules restrict any use of the information to criminally investigate or prosecute any alcohol or drug abuse patient.[facility] Center[facility] the event this information is protected by the Federal Confidentiality of Alcohol and Drug Abuse Patient Records regulations: The Federal rules restrict any use of the information to criminally investigate or prosecute any alcohol or drug abuse patient.[facility] CenterIn the event this information is protected by the Federal Confidentiality of Alcohol and Drug Abuse Patient Records regulations: The Federal rules restrict any use of the information to criminally investigate or prosecute any alcohol or drug abuse patient.[facility] CenterIn the event this information is protected by the Federal Confidentiality of Alcohol and Drug Abuse Patient Records regulations: The Federal rules restrict any use of the information to criminally investigate or prosecute any alcohol or drug abuse patient.[facility] CenterIn the event this information is protected by the Federal Confidentiality of Alcohol and Drug Abuse Patient Records regulations: The Federal rules restrict any use of the information to criminally investigate or prosecute any alcohol or drug abuse patient.[facility] CenterIn the event this information is protected by the Federal Confidentiality of Alcohol and Drug Abuse Patient Records regulations: The Federal rules restrict any use of the information to criminally investigate or prosecute any alcohol or drug abuse patient.[facility] CenterIn the event this information is protected by the Federal Confidentiality of Alcohol and Drug Abuse Patient Records regulations: The Federal rules restrict any use of the information to criminally investigate or prosecute any alcohol or drug abuse patient.[facility] CenterIn the event this information is protected by the Federal Confidentiality of Alcohol and Drug Abuse Patient Records regulations: The Federal rules restrict any use of the information to criminally investigate or prosecute any alcohol or drug abuse patient.[facility] CenterIn the event this information is protected by the Federal Confidentiality of Alcohol and Drug Abuse Patient Records regulations: The Federal rules restrict any use of the information to criminally investigate or prosecute any alcohol or drug abuse patient.[facility] CenterIn the event this information is protected by the Federal Confidentiality of Alcohol and Drug Abuse Patient Records regulations: The Federal rules restrict any use of the information to criminally investigate or prosecute any alcohol or drug abuse patient.[facility] CenterIn the event this information is protected by the Federal Confidentiality of Alcohol and Drug Abuse Patient Records regulations: The Federal rules restrict any use of the information to criminally investigate or prosecute any alcohol or drug abuse patient.[facility] CenterIn the event this information is protected by the Federal Confidentiality of Alcohol and Drug Abuse Patient Records regulations: The Federal rules restrict any use of the information to criminally investigate or prosecute any alcohol or drug abuse patient.[facility] CenterIn the event this information is protected by the Federal Confidentiality of Alcohol and Drug Abuse Patient Records regulations: The Federal rules restrict any use of the information to criminally investigate or prosecute any alcohol or drug abuse patient.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 Intake Worker Relationship Specialty Start Date End Date Zach Garcia MD [address] [place], [place] [id number] PCP - General Internal Medicine 02/24/11 Bulk Intake Worker Relationship Specialty Start Date End Date Zach Garcia MD [address] [place], [place] [id number] PCP - General Internal Medicine 02/24/11 Bulk Intake Worker Relationship Specialty Start Date End Date Zach Garcia MD [address] [place] [address] PCP - General Internal Medicine 02/24/11 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 Intake Worker Relationship Specialty Start Date End Date Zach Garcia MD [address] [place] [address] PCP - General Internal Medicine 02/24/11 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 Intake Worker Relationship Specialty Start Date End Date Zach Garcia MD [address] [place] [address] PCP - General Internal Medicine 02/24/11 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 Intake Worker Relationship Specialty Start Date End Date Zach Garcia MD [address] [place] [address] PCP - General Internal Medicine 02/24/11 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 Intake Worker Relationship Specialty Start Date End Date Zach Garcia MD [address] [place] [address] PCP - General Internal Medicine 02/24/11 Bulk Intake Worker Relationship Specialty Start Date End Date Zach Garcia MD [address] [place] [address] PCP - General Internal Medicine 02/24/11 Bulk Intake Worker Relationship Specialty Start Date End Date Zach Garcia MD [address] [place] [address] PCP - General Internal Medicine 02/24/11 Bulk Intake Worker Relationship Specialty Start Date End Date Zach Garcia MD [address] [place] [address] PCP - General Internal Medicine 02/24/11 Bulk Intake Worker Relationship Specialty Start Date End Date Zach Garcia MD [address] [place] [address] PCP - General Internal Medicine 02/24/11 FOR RECORDS PERTAINING TO PATIENTS WHO ARE OR HAVE BEEN ENROLLED IN A CHEMICAL DEPENDENCY/SUBSTANCEABUSE PROGRAM, SOME INFORMATION MAY BE OMITTED. This clinical summary was aggregated from multiple sources. Caution should be exercised in using it in the provision of clinical care. This summary normalizes information from multiple sources, and as a consequence, information in this document may materially change the coding, format and clinical context of patient data. In addition, data may be omitted in some cases. CLINICAL DECISIONS SHOULD BE BASED ON THE PRIMARY CLINICAL RECORDS. [employer] [facility]. provides no warranty or guarantee of the accuracy or completeness of information in this document.
== END | disposition home or self-care (01) ==
LOC: OPBI 15:31
PROVIDERS: PCP Internal Medicine; Referring Provider Internal Medicine; Visit Provider Internal Medicine
DX: Z12.31 Encounter for screening mammogram for malignant neoplasm of breast (principal); Z80.3 Family history of malignant neoplasm of breast
CPT/HCPCS: 77063; 77067

== ENCOUNTER → 2023-04-21 | Outpatient (CLI) | payer OTHER, SELFPAY ==
[2023-04-21 17:05] LABS: Anion Gap 6 (5-15); BUN 20 mg/dL (7-18); BUN/Creat Ratio 25.5 RATIO (10-20); Calcium,Total 9.4 mg/dL (8.5-10.1); Chloride 105 mmol/L (98-107); Creatinine, Serum 0.78 mg/dL (0.55-1.02); EST Glomerular Filtration Rate 79 mL/min (>60); Est Glom Filt Rate - Afr Amer 95 mL/min (>60); Glucose 169 mg/dL (74-106); Potassium 3.5 mmol/L (3.5-5.1); Sodium Level 138 mmol/L (136-145)
--- OUTSIDE RECORDS SUMMARY | 2023-04-21 17:28 | XMS RPT_ITS | CCD ---
Author Name Unknown Address [email or web address] [place] [address] Organization [facility] Care Team Providers Care Traffic Monitor Specialist Name Role Phone CHARMAINE BRONSON Unavailable Unavailable ZACH GARCIA Unavailable Unavailable CHARMAINE BRONSON Unavailable Unavailable ZACH GARCIA Unavailable Unavailable CHARMAINE BRONSON Unavailable Unavailable ZACH GARCIA Unavailable Unavailable Zach Garcia Unavailable Unavailable Unavailable Zach Garcia MD Primary Care Provider [phone] Admitting Unavailable CHARMAINE BRONSON DR Attending Unavailable CHARMAINE BRONSON DR Primary Care Unavailable FLORENCE SMITH PAC Admitting Unavailable LUISFLORENCE PILLAI PAC Attending Unavailable FLORENCE SMITH PAC Primary Care Unavailable ZACH GARCIA MD Consulting Unavailable PROVIDER, UNKNOWN Consulting Unavailable Zach Garcia MD Primary Care Provider [phone] Zach Garcia MD Primary Care Provider [phone] ZACH GARCIA Primary Care Unavailable KENIA MAYORGA Attending Unavailable ZACH GARCIA Attending Unavailable ZACH GARCIA Primary Care Unavailable ZACH GARCIA Referring Unavailable ZACH GARCIA Primary Care Unavailable ZACH GARCIA Attending Unavailable ZACH GARCIA Primary Care Unavailable Allergies Allergy Classification Reported Allergen(s) Allergy Type Date of Onset Reaction(s) Facility (5 sources) Sulfamethoxazole ; Translations: [sulfa] Drug Allergy MG-Otolaryngo [facility] Work Phone: (14 sources) cefdinir; Translations: [CEFDINIR] Drug Allergy 03-20-2007 [facility] Work Phone: (14 sources) Doxycycline; Translations: [DOXYCYCLINE MONOHYDRATE] Drug Allergy 01-15-2011 Hives, Swelling, Anaphylaxis [facility] Work Phone: (14 sources) Etodolac; Translations: [ETODOLAC] Drug Allergy 01-07-2011 Rash, Swelling, Itching [facility] Work Phone: (14 sources) sulfaSALAzine; Translations: [SULFASALAZINE] Drug Allergy 09-19-2011 Rash [facility] Work Phone: (14 sources) Sulfa Dyne; Translations: [SULFA DYNE] Drug Allergy 09-19-2011 [facility] Work Phone: Medications Current Medications Medication [...] Drug Class(es) Dates Sig (Normalized) Sig (Original) [id number] 200 actuat albuterol 0.09 mg/actuat metered dose [...] 58 mm[Hg] Zach Garcia MD Work Phone: [facility] 09-24-2022 17:32-0400 Systolic blood pressure 118 mm[Hg] Zach Garcia MD Work Phone: [facility] 09-24-2022 17:00-0400 Body weight 80.29 kg Zach Garcia MD Work Phone: [facility] 09-24-2022 17:00-0400 Heart rate 80 /min Zach Garcia MD Work Phone: [facility] 09-24-2022 17:00-0400 Respiratory rate 18 /min Zach Garcia MD Work Phone: [facility] 09-13-2021 10:51-0400 Body temperature 97.81 [degF] Zach Garcia MD Work Phone: [facility] 09-13-2021 10:51-0400 Body weight 82.56 kg Zach Garcia MD Work Phone: [facility] 09-13-2021 10:51-0400 Diastolic blood pressure 60 mm[Hg] Zach Garcia MD Work Phone: [facility] 09-13-2021 10:51-0400 Heart rate 95 /min Zach Garcia MD Work Phone: [facility] 09-13-2021 10:51-0400 Respiratory rate 16 /min Zach Garcia MD Work Phone: [facility] 09-13-2021 10:51-0400 SaO2% (BldA) [Mass fraction] 97 % Zach Garcia MD Work Phone: [facility] 09-13-2021 10:51-0400 Systolic blood pressure 120 mm[Hg] Zach Garcia MD Work Phone: [facility] 07-08-2021 10:08-0400 Body weight 84.37 kg Jennifer Varghese MANAGEMENT TRAINEE PROGRAM STORES.NON CLINICAL ADVISOR Work Phone: [facility] 07-08-2021 10:08-0400 Diastolic blood pressure 72 mm[Hg] Jennifer Varghese MANAGEMENT TRAINEE PROGRAM STORES.NON CLINICAL ADVISOR Work Phone: [facility] 07-08-2021 10:08-0400 Heart rate 92 /min Jennifer Varghese MANAGEMENT TRAINEE PROGRAM STORES.NON CLINICAL ADVISOR Work Phone: [facility] 07-08-2021 10:08-0400 Respiratory rate 16 /min Jennifer Varghese MANAGEMENT TRAINEE PROGRAM STORES.NON CLINICAL ADVISOR Work Phone: [facility] 07-08-2021 10:08-0400 Systolic blood pressure 132 mm[Hg] Jennifer Varghese MANAGEMENT TRAINEE PROGRAM STORES.NON CLINICAL ADVISOR Work Phone: [facility] 01-01-2021 12:52-0400 Body height 162.56 cm Zach Garcia [facility] Work Phone: 01-01-2021 12:52-0400 Body mass index (BMI) [Ratio] 32.61 kg/m2 Zach Garcia [facility] Work Phone: 01-01-2021 12:52-0400 Body surface area Derived from formula 1.91 m2 Zach Garcia [facility] Work Phone: 01-01-2021 12:52-0400 Body weight 86.18 kg Zach Garcia [facility] Work Phone: Encounters Encounter Date Encounter Type Care Provider Facility Start: 01-07-2023 End: 01-08-2023 ambulatory ZACH GARCIA Facility:[facility] Start: 12-30-2022 Refill Zach lr MD Work Phone: [facility] [place] Procedures Date Procedure Procedure Detail Performing Clinician Start: 11-04-2021 Colonoscopy Zach Rivera MD Work Phone: Start: 11-14-2020 Mammography Jennifer Broo ks MANAGEMENT TRAINEE PROGRAM STORES.NON CLINICAL ADVISOR Work Phone: Start: 10-27-2019 Colonoscopy Jennifer Broo ks MANAGEMENT TRAINEE PROGRAM STORES.NON CLINICAL ADVISOR Work Phone: Plan of Treatment Date Care Activity Detail Author Start: 06-01-2028 Urine microalbumin profile [facility] Start: 11-04-2026 Colonoscopy COLONOSCOPY [facility] Start: 11-04-2026 COLORECTAL CANCER SCREENING COLORECTAL CANCER SCREENING [facility] Start: 10-26-2024 Colonoscopy COLONOSCOPY [facility] Start: 10-26-2024 COLORECTAL CANCER SCREENING COLORECTAL CANCER SCREENING [facility] Start: 09-25-2023 ANNUAL PCP TEAM 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 MARI DISEASE VISIT ANNUAL PCP TEAM CHRONIC DISEASE VISIT [facility] Start: 09-25-2023 BP CONTROLLED (<130/80) BP CONTROLLE D (<130/80) [facility] Start: 09-25-2023 COVID-19 VACCINE (4 - Booster for Pfizer series) COVID-19 VACCINE (4 - Booster for Pfizer series) [facility] Immunizations Immunization Date Immunization Notes Care Provider Fa cility 09-24-2022 pneumococcal Conjuga te, unspecified formulation Zach Garcia MD Work Phone: [facility] Work Phone: 09-24-2022 pneumococcal (PCV20) vaccine, 20 valent (PREVNAR 20) Zach Garcia MD Work Phone: [facility] Work Phone: 06-16-2022 Hepatitis B vaccine (recombinant), CpG adjuvanted Zach Garcia MD Work Phone: [facility] Work Phone: 04-13-2021 COVID-19 original vaccine, age 12+ yr, monovalent (PFIZER-BIONTECH - PURPLE TOP) Zach Garcia MD Work Phone: [facility] Work Phone: 03-11-2021 influenza, injectabl e, quadrivalent, contains preservative Jennifer Varghese MANAGEMENT TRAINEE PROGRAM STORES.NON CLINICAL ADVISOR Work Phone: [facility] Work Phone: 03-11-2021 influenza virus vacc ine, unspecified formulation Zach Garcia MD Work Phone: [facility] 2020 zoster vaccine recombinant Jennifer Varghese MANAGEMENT TRAINEE PROGRAM STORES.NON CLINICAL ADVISOR Work Phone: [facility] Work Phone: 09-01-2020 zoster vaccine recombinant Jennifer Varghese MANAGEMENT TRAINEE PROGRAM STORES.NON CLINICAL ADVISOR Work Phone: [facility] Work Phone: 07-31-2020 COVID-19 vaccine, ag e 12+ yr (PFIZER-BIONTECH - PURPLE TOP) Jennifer Varghese MANAGEMENT TRAINEE PROGRAM STORES.NON CLINICAL ADVISOR Work Phone: [facility] Work Phone: 06-28-2020 COVID-19 vaccine, ag e 12+ yr (PFIZER-BIONTECH - PURPLE TOP) Jennifer Varghese MANAGEMENT TRAINEE PROGRAM STORES.NON CLINICAL ADVISOR Work Phone: [facility] Work Phone: 03-05-2020 influenza, seasonal, injectable Jennifer Varghese MANAGEMENT TRAINEE PROGRAM STORES.NON CLINICAL ADVISOR Work Phone: [facility] Work Phone: 01-17-2019 influenza, injectabl e, quadrivalent, contains preservative Jennifer Varghese MANAGEMENT TRAINEE PROGRAM STORES.NON CLINICAL ADVISOR Work Phone: [facility] Work Phone: 06-01-2018 tetanus and diphther ia toxoids, adsorbed, preservative free, for adult use (5 Lf of tetanus toxoid and 2 Lf of diphtheria toxoid) Jennifer Varghese MANAGEMENT TRAINEE PROGRAM STORES.NON CLINICAL ADVISOR Work Phone: [facility] Work Phone: 03-09-2018 influenza, injectabl e, quadrivalent, contains preservative Jennifer Varghese MANAGEMENT TRAINEE PROGRAM STORES.NON CLINICAL ADVISOR Work Phone: [facility] Work Phone: 02-23-2017 influenza, injectabl e, quadrivalent, contains preservative Jennifer Varghese MANAGEMENT TRAINEE PROGRAM STORES.NON CLINICAL ADVISOR Work Phone: [facility] 02-04-2016 influenza, injectabl e, quadrivalent, contains preservative Jennifer Varghese MANAGEMENT TRAINEE PROGRAM STORES.NON CLINICAL ADVISOR Work Phone: [facility] 01-04-2015 influenza, seasonal, injectable Jennifer Varghese MANAGEMENT TRAINEE PROGRAM STORES.NON CLINICAL ADVISOR Work Phone: [facility] 01-05-2014 influenza virus vacc ine, unspecified formulation Jennifer Varghese MANAGEMENT TRAINEE PROGRAM STORES.NON CLINICAL ADVISOR Work Phone: [facility] 01-19-2013 influenza virus vacc ine, unspecified formulation Jennifer Varghese MANAGEMENT TRAINEE PROGRAM STORES.NON CLINICAL ADVISOR Work Phone: [facility] 02-23-2012 influenza virus vacc ine, unspecified formulation Jennifer Varghese MANAGEMENT TRAINEE PROGRAM STORES.NON CLINICAL ADVISOR Work Phone: [facility] Work Phone: 05-28-2011 pneumococcal polysaccharide vaccine, 23 valent Jennifer Varghese MANAGEMENT TRAINEE PROGRAM STORES.NON CLINICAL ADVISOR Work Phone: [facility] Work Phone: 03-16-2011 influenza virus vacc ine, unspecified formulation Jennifer Varghese MANAGEMENT TRAINEE PROGRAM STORES.NON CLINICAL ADVISOR Work Phone: [facility] Work Phone: 05-26-2008 tetanus toxoid, redu natalie diphtheria toxoid, and acellular pertussis vaccine, adsorbed Jennifer Varghese MANAGEMENT TRAINEE PROGRAM STORES.[facility] Work Phone: [facility] Work Phone: Payers Date Payer Category Payer Private Health Insurance ARLEY [employer] [id number] 2022-Present [phone] [address] [place] [address] PPO [id number] 2022 Private Health Insurance [id number] 2021 Unknown 2021 Unknown ABRAHAM ANGIE JEF KAY PPO [id number] 2021-Present [phone] [address] [place] [address] PPO [id number] 2017 Private Health Insurance [id number] 1960 Unknown [id number] 1960 Unknown [id number] Unknown [id number] Social History Date Type Detail Facility Start: 02-24-2011 End: 08-13-2022 Non-smoker Non-smoker [facility] Start: 02-24-2011 End: 08-13-2022 Tobacco smoking status NHIS Ex-smoker [facility] Work Phone: End: 04-26-2003 History of tobacco use Current smoker [facility] Work Phone: End: 04-26-2003 History of tobacco use Cigarette Smoker [facility] Work Phone: Start: 02-24-2011 End: 08-13-2022 Tobacco use and exposure Smokeless tobacco non-user [facility] Work Phone: Start: 07-08-2021 End: 09-24-2022 Alcohol intake Current non-drinker of alcohol (finding) [facility] Start: 04-26-2020 History SDOH Stress 2 [facility] Start: 04-26-2020 History SDOH Housing Unable to Pay 3 [facility] Start: 04-26-2020 History SDOH Housing Places Lived 1 [facility] Start: 1960 Sex Assigned At Not on file C [facility] Start: 06-28-2021 End: 09-13-2021 Exposure to SARS-CoV-2 (event) Not sure [facility] Work Phone: Start: 04-26-2020 End: 08-13-2022 Social connection and isolation panel [facility] In a typical week, h ow many times do you talk on the telephone with family, friends, or neighbors? Patient refused [facility] Are you now , , , , never or living with a partner? Refused [facility] Do you feel stress - tense, restless, nervous, or anxious, or unable to sleep at night because your mind is troubled all the time - these days [OSQ] Only a little [facility] (I/We) worried wheth er (my/our) food would run out before (I/we) got money to buy more. DK or Refused [facility] Medical Equipment Procedure Code Equipment Code Equipment Origin al Text Equipment Identifier Dates Start: 04-05-2020 End: 05-02-2022 Clinical Notes 06-05-2019 to 04-15-2023 Telephone Encounter - Jerri Goldstein RN - 01/02/2023 8:45 AM EDTTelephone Encounter - Deneen Reeder LPN - 12/30/2022 9:44 AM EDTZach Garcia MD - 09/24/2022 5:13 PM EDT Note Date & Type Note Facility 04-15-2023 Note HNO ID: [id number] Author: SRAVAN MEZA LPN Service: ? Author Type: LICENSED NURSE Type: Progress Notes Filed: 04/15/2023 14:51 Note Text: Scan on 04/15/2023 9:27 AM by Provider, External, PA-C: Mammography [facility] 01-07-2023 Note HNO ID: [id number] Author: Kenia Maguire APRN.WHOLESALE REPRESENTATIVE Service: ? Author Type: Nurse Practitioner Type: [...] 04/27/2020 Crohn disease (HCC) 07/04/2011 Diabetes mellitus (HCC) 11/20/2009 Diarrhea Esophageal reflux 05/26/2008 Fibromyalgia 03/22/2004 HYPERTENSION NOS 05/26/2008 Inflammatory polyarthropathies (HCC) 05/28/2011 Irritable bowel syndrome 01/18/2010 Irritable bowel Moderate persistent asthma without complication 09/18/2020 OBESITY NOS 05/26/2008 Palpitations 11/20/2009 Type 2 diabetes mellitus with diabetic neuropathy, without long-term current use of insulin ([facility]) 02/27/2016 Type II or unspecified type diabetes [...] by mouth once daily. blood sugar diagnostic ([employer] ULTRA TEST) test strip Test once daily. Dx:E11.40. No insulin. empagliflozin (JARDIANCE) 25 mg tablet Take 1 tablet by mouth once daily. Take 1 tablet once daily in the morning glipiZIDE (GLUCOTROL XL) 10mg 24 hr tablet Take 1 tablet by mouth once daily. lancets ([employer] DELICA LANCETS) 30 gauge Test blood sugar once daily. Dx: E11.9. Insulin: No fluticasone-vilanterol (BREO ELLIPTA) 200-25 mcg/dose inhaler Inhale 1 Inhalation as instructed once daily. ustekinumab (STELARA) 130 mg/26 mL injection albuterol HFA (PROVENTIL HFA, VENTOLIN HFA) 90 mcg/actuation inhaler Inhale 2 Puffs as instructed every 4 hours as needed for Wheezing/Shortness of Breath. fluticasone (FLONASE) 50 mcg/actuation nasal spray Use 1 Lyerly in each nostril once daily. Blood-Glucose Meter ([employer] StudiosTOUCH ULTRA2) monitoring kit Use as directed to [...] quittin.7 Smokeless tobac (more content not included)... [facility] 01-02-2023 Miscellaneous Notes Patient calls to check [...] Nay Garcia Pss documented in this encounter [facility] 12-23-2022 Miscellaneous Notes Patient has [...] advise. Qian Khan documented in this encounter [facility] 12-22-2022 Miscellaneous Notes Patient notified, she wants Lab orders faxed to [facility] Lab. Done. Deneen Reeder LPN There are labs already ordered Kenia Maguire APRN.HUMBERTO Patient called requesting labs Please advise documented in this encounter [facility] 09-24-2022 Note HNO ID: [id number] Author: Zach Garcia MD Service: ? Author Type: Physician Type: Progress Notes Filed: 09/24/2022 11:01 PM Note Text: This note was created using Tuition.ioter. He Rodriguez is a 61 year old female. [...] mouth daily at bedtime. blood sugar diagnostic (T[employer]CommerceUCH ULTRA TEST) test strip Test once daily. [...] capsule by mouth daily with breakfast. lancets (Radical StudiosTOUCH DELICA LANCETS) 30 gauge Test blood sugar once daily. Dx: E11.9. Insulin: No fluticasone-vilanterol (BREO ELLIPTA) 200-25 mcg/dose inhaler Inhale 1 Inhalation as instructed once daily. albuterol HFA (PROVENTIL HFA, VENTOLIN HFA) 90 mcg/actuation inhaler Inhale 2 Puffs as instructed every 4 hours as needed for Wheezing/Shortness of Breath. fluticasone (FLONASE) 50 mcg/actuation nasal spray Use 1 Lyerly in each nostril once daily. Blood-Glucose Meter (ONETOUCH ULTRA2) monitoring kit Use as directed to [...] 5. Encounter for (more content not included)... [facility] 09-24-2022 History of Present illness Narrative This note was created using [employer] Genomeriter. He Rodriguez is a 61 year old female. [...] mouth daily at bedtime. blood sugar diagnostic ([employer] ULTRA TEST) test strip Test once daily. [...] capsule by mouth daily with breakfast. lancets (TapCommerceUCH DELICA LANCETS) 30 gauge Test blood sugar once daily. Dx: E11.9. Insulin: No fluticasone-vilanterol (BREO ELLIPTA) 200-25 mcg/dose inhaler Inhale 1 Inhalation as instructed once daily. albuterol HFA (PROVENTIL HFA, VENTOLIN HFA) 90 mcg/actuation inhaler Inhale 2 Puffs as instructed every 4 hours as needed for Wheezing/Shortness of Breath. fluticasone (FLONASE) 50 mcg/actuation nasal spray Use 1 Lyerly in each nostril once daily. Blood-Glucose Meter (T[employer]CH ULTRA2) monitoring kit Use as directed to [...] breast - ICD9: V76.12, ICD10: Z12.31 - GABO SCREENING W PRAVEENA 6. History of falling - ICD9: V15.88, ICD10: Z91.81 - CONSULT TO PHYSICAL THERAPY 7. Fibromyalgia - ICD9: 729.1, ICD10: M79.7 Dose reduced due to balance disorder. - AMITRIPTYLINE 75 MG TABLET 8. Need for vaccination - ICD9: V05.9, ICD10: Z23 - PNEUMOCOCCAL VACCINE (PREVNAR 20) Zach Garcia MD documented in this encounter [facility] 09-17-2022 Miscellaneous Notes Prilosec to [...] Nay Garcia Pss documented in this encounter [facility] 08-13-2022 Note Patient Outreach (IN [facility]) LESLIE RODRIGUEZ ([id number]) 1960 F Date Time Provider Department 08/13/22 [...] for screening mammogram for breast cancer [Z12.31] Order(s):[facility] SCREENING W PRAVEENA [[id number]] Order #: [id number] FUTURE Prescriptions as of 08/18/2022 - folic acid 1 mg tablet Take 2 tablets by mouth once daily. - Amitriptyline HCl 150 mg tablet Take 1 tablet by mouth daily at bedtime. - blood sugar diagnostic (T[employer]CH ULTRA TEST) test strip Test once daily. [...] by mouth daily with breakfast. - lancets ([employer] DELICA LANCETS) 30 gauge Test blood sugar [...] (FLONASE) 50 mcg/actuation nasal spray Use 1 Lyerly in each nostril once daily. - Blood-Glucose Meter (Tap[employer]UCH ULTRA2) monitoring kit Use as directed to test blood sugar - multivitamin tablet Take 1 tablet by mouth once daily. Problem List As Of Date 08/13/2022 Noted Resolved Cervicalgia [M54.2] 01/20/2006 02/24/2011 Routine General Medical Examination at [facility]*05/26/2008 10/31/2011 Dermatophytosis of foot [B35.3] 05/26/2008 02/25/2011 Obesity, Unspecified [E66.9] 05/26/2008 07/19/2014 Essential hypertension [I10] 05/26/2008 Esophageal Reflux [K21.9] 05/26/2008 Dysmetabolic Syndrome X [E88.81] 07/07/2008 11/20/2009 Reflux [TIR1439] 11/20/2009 Heartburn [R12] 02/24/2011 Diabetes mellitus (HCC) [...] persistent asthma without complication*09/18/2020 Encounter Status:Closed by JOSUE, PRODUSER on 08/18/22 [facility] 08-13-2022 Note HNO ID: [id number] Author: Zach Garcia MD Service: ? Author Type: Physician Type: Progress Notes Filed: 08/13/2022 9:54 AM Note Text: This note was created using [employer].ioter. Subjective Patient presents with: ED Follow-up Leslie [...] mouth daily at bedtime. blood sugar diagnostic (ONETOUCH ULTRA TEST) test strip Use as instructed [...] 1 tablet by mouth once daily. lancets ([employer] DELICA LANCETS) 30 gauge Test blood sugar once daily. Dx: E11.9. Insulin: No fluticasone-vilanterol (BREO ELLIPTA) 200-25 mcg/dose inhaler Inhale 1 Inhalation as instructed once daily. ustekinumab (STELARA) 130 mg/26 mL injection albuterol HFA (PROVENTIL HFA, VENTOLIN HFA) 90 mcg/actuation inhaler Inhale 2 Puffs as instructed every 4 hours as needed for Wheezing/Shortness of Breath. fluticasone (FLONASE) 50 mcg/actuation nasal spray Use 1 Lyerly in each nostril once daily. Blood-Glucose Meter ([employer] StudiosTOUCH ULTRA2) monitoring kit Use as directed to [...] A1C - ALBUMIN/C (more content not included)... [facility] 05-02-2022 Miscellaneous Notes MALACHI: 09/13/21 with PCP [...] Luly Arnold Pss documented in this encounter [facility] 03-26-2022 Miscellaneous Notes Left a message to call the office and also mailed a letter asking pt to call the office to reschedule March yearly apt. Mei Arnold LPN Left a message for pt to [...] Crista Heart Pss documented in this encounter [facility] 01-29-2022 Miscellaneous Notes Patient phones requesting refills as follows: Requested Prescriptions Pending Prescriptions Disp Refills atorvastatin (LIPITOR) 10 mg tablet 90 tablet 3 Sig: Take 1 tablet by mouth daily at bedtime. For cholesterol. Please review and advise. Jodee Seals LPN documented in this encounter [facility] 12-13-2021 Miscellaneous Notes Patient has [...] Misty Costello Pss documented in this encounter [facility] 12-02-2021 Miscellaneous Notes Checked with [facility], Patient did pickup RX. Deneen Reeder LPN [...] if something could be called into [facility]. Please advise. documented in this encounter [facility] 09-13-2021 History of Present illness Narrative This note was created using ModeWalk. Subjective Leslie Rodriguez is a 60 year [...] by mouth once daily. blood sugar diagnostic ([employer] ULTRA TEST) test strip Use as instructed amitriptyline (ELAVIL) 100 mg tablet Take 1 tablet by mouth every evening. atorvastatin (LIPITOR) 10 mg tablet Take 1 tablet by mouth daily at bedtime. For cholesterol. lancets ([employer] StudiosTOUCH DELICA LANCETS) 30 gauge Test blood sugar once daily. Dx: E11.9. Insulin: No fluticasone-vilanterol (BREO ELLIPTA) 200-25 mcg/dose inhaler Inhale 1 Inhalation as instructed once daily. albuterol HFA (PROVENTIL HFA, VENTOLIN HFA) 90 mcg/actuation inhaler Inhale 2 Puffs as instructed every 4 hours as needed for Wheezing/Shortness of Breath. fluticasone (FLONASE) 50 mcg/actuation nasal spray Use 1 Lyerly in each nostril once daily. Blood-Glucose Meter ([employer] ULTRA2) monitoring kit Use as directed to [...] breast - ICD9: V76.12, ICD10: Z12.31 - GABO SCREENING W PRAVEENA Garcia MD documented in this encounter [facility] 07-08-2021 Instructions Jennifer Varghese APRN.CNS - 07/08/2021 10:52 AM EDT Check with her surgeon regarding timing of surgery and what to do with your medications prior to surgery. 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 ACS NSQIP Surgical Risk Calculator 1. Age [...] No 18. BMI Class Calculation: Obese 1 [facility] labwork: May 08, 2021 WBC 6.2 [...] managing this, no recent exacerbation. Follows with foot roentgenologist at [facility], recently seen in the office, she notes given okay to proceed with surgery by foot roentgenologist. Review of Systems Respiratory: Positive for shortness [...] by mouth once daily. blood sugar diagnostic ([employer] ULTRA TEST) test strip, Use as instructed amitriptyline (ELAVIL) 100 mg tablet, Take 1 tablet by mouth every evening. atorvastatin (LIPITOR) 10 mg tablet, Take 1 tablet by mouth daily at bedtime. For cholesterol. lancets (TapCommerce[employer]CH DELICA LANCETS) 30 gauge, Test blood sugar once daily. Dx: E11.9. Insulin: No fluticasone-vilanterol (BREO ELLIPTA) 200-25 mcg/dose inhaler, Inhale 1 Inhalation as instructed once daily. ustekinumab (STELARA) 130 mg/26 mL injection, albuterol HFA (PROVENTIL HFA, VENTOLIN HFA) 90 mcg/actuation inhaler, Inhale 2 Puffs as instructed every 4 hours as needed for Wheezing/Shortness of Breath. fluticasone (FLONASE) 50 mcg/actuation nasal spray, Use 1 [place] in each nostril once daily. Blood-Glucose Meter (TapCommerce[employer]CH ULTRA2) monitoring kit, Use as directed to test blood sugar multivitamin tablet, Take 1 tablet by mouth once daily. PAST MEDICAL HISTORY Diagnosis Date Acute deep vein thrombosis (DVT) of tibial vein of left lower extremity ([facility]) 08/10/2019 Cervicalgia 01/20/2006 Chronic cough 03/08/2020 COVID-19 virus infection 04/27/2020 Crohn disease ([facility]) 07/04/2011 Diabetes mellitus ([facility]) 11/20/2009 Diarrhea Esophageal reflux 05/26/2008 Fibromyalgia 03/22/2004 HYPERTENSION NOS 05/26/2008 Inflammatory polyarthropathies ([facility]) 05/28/2011 Irritable bowel syndrome 01/18/2010 Irritable bowel Moderate persistent asthma without complication 09/18/2020 OBESITY NOS 05/26/2008 Palpitations 11/20/2009 Type 2 diabetes mellitus with diabetic neuropathy, without long-term current use of insulin ([facility]) 02/27/2016 Type II or unspecified type diabetes mellitus without mention of complication, not stated as uncontrolled 2009 PAST SURGICAL HISTORY Procedure Laterality Date ARTHRP KNE CONDYLE&PLATU MEDIAL&LAT COMPARTMENTS Right 06/15/2017 CHOLECYSTECTOMY 09/13/1973 Cholecystectomy COLONOSCOPY 03/21/2018 COLONOSCOPY 10/27/2019 COLONOSCOPY 01/24/2021 Dr. Sarah More COLONOSCOPY FLX DX W/COLLJ SPEC WHEN PFRMD 03/27/1997 Colonoscopy COLONOSCOPY FLX DX W/COLLJ SPEC WHEN PFRMD 06/26/2011 Colonoscopy [facility] COLONOSCOPY FLX DX W/COLLJ SPEC WHEN [...] be completed by Dr. Charmaine Bronson at [facility] [place] July 28, 2021. Below average risk for surgery, 2.7% risk of serious complication, 3.6% of any complication by ACS NSQIP surgical risk calculator. EKG was completed at [facility] showed normal sinus rhythm. No need for additional testing other than lab work at this time. Recent lab work completed outside of [id number] window prior to surgery so can complete here or at [facility] per preference. Would like to do [...] 4 - Moderate documented in this encounter [facility] 01-17-2021 Note Plan of Care [...] believes PND contributes. 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 Patient's last HgA1C was HBA1C, [facility] (%) Date Value 09/13/2011 6.2* 03/01/2011 6.6* [...] of this encounter (statuses as of 09/13/2021) [facility] History of Past illness Narrative* [...] 130-140 range. Patient's last HgA1C was HBA1C, [facility] (%) Date Value 09/13/2011 6.2* 03/01/2011 6.6* [...] of this encounter (statuses as of 12/02/2021) [facility] History of Past illness Narrative* [...] 130-140 range. Patient's last HgA1C was HBA1C, [facility] (%) Date Value 09/13/2011 6.2* 03/01/2011 6.6* [...] of this encounter (statuses as of 12/13/2021) [facility] History of Past illness Narrative* [...] 130-140 range. Patient's last HgA1C was HBA1C, [facility] (%) Date Value 09/13/2011 6.2* 03/01/2011 6.6* [...] of this encounter (statuses as of 01/31/2022) [facility] History of Past illness Narrative* [...] 130-140 range. Patient's last HgA1C was HBA1C [facility] (%) Date Value 09/13/2011 6.2* 03/01/2011 6.6* [...] of this encounter (statuses as of 03/26/2022) [facility] History of Past illness Narrative* [...] of this encounter (statuses as of 05/02/2022) [facility] History of Past illness Narrative* [...] 130-140 range. Patient's last HgA1C was HBA1C, [facility] (%) Date Value 09/13/2011 6.2* 03/01/2011 6.6* [...] of this encounter (statuses as of 08/18/2022) [facility] History of Past illness Narrative* [...] of this encounter (statuses as of 09/18/2022) [facility] History of Past illness Narrative* [...] fasting 130-140 range. Patient's last HgA1C was HBA1CTommie (%) Date Value 09/13/2011 6.2* 03/01/2011 6.6* [...] of this encounter (statuses as of 09/25/2022) [facility] History of Past illness Narrative* [...] of this encounter (statuses as of 12/22/2022) [facility] History of Past illness Narrative* [...] of this encounter (statuses as of 12/23/2022) [facility] History of Past illness Narrative* [...] of this encounter (statuses as of 01/03/2023) [facility]03-[facility] History of Present illness Narrative* [...] per the patient. Works second shift at [employer]. Uses amitriptyline tohelp sleep. * PMH: N/a * FHx: reviewed and non-contributory to current complaint. * I personally reviewed the patient AEMR notes, and consult notes from Dr. An * ROS performed. All other systems are reviewed and are negative for complaint and as noted above. [facility] [address] Work Phone: [phone]) 839-621003-01-2020 History of Present illness Narrative* LESLIE RODRIGUEZ [...] per the patient. Works second shift at [employer]. Uses amitriptyline to help sleep. * PMH: N/a * FHx: reviewed and non-contributory to current complaint. * I personally reviewed the patient AEMR notes, and consult notes from Dr. An * ROS performed. All other systems are reviewed and are negative for complaint and as noted above. [facility] [address] Work Phone: [phone] 419-144503-01-2020 History of Present illness Narrative* LESLIE RODRIGUEZ [...] per the patient. Works second shift at [employer]. Uses amitriptyline to help sleep. * PMH: N/a * FHx: reviewed and non-contributory to current complaint. * I personally reviewed the patient AEMR notes, and consult notes from Dr. An * ROS performed. All other systems are reviewed and are negative for complaint and as noted above. [facility]qsvsmqbbwlsyp[facility]oxvyqv[facility] [address] Work Phone: Evaluation note* Diagnosis Preop exam for internal medicine- Primary Other specified pre-operative examination [facility]* Diagnosis Fibromyalgia- Primary Mylagia and myositis, unspecified Type 2 diabetes mellitus with diabetic neuropathy, without long-term current use of insulin (HCC) Essential hypertension Unspecified essential hypertension Encounter for screening mammogram for malignant neoplasm of breast Other screening mammogram [facility] Diagnosis Essential hypertension Unspecified essential hypertension Gastroesophageal reflux disease, unspecified whether esophagitis present documented in this encounter [facility]* Diagnosis Type 2 diabetes mellitus with diabetic neuropathy, without long-term current use of insulin (HCC) documented [facility] this encounter [facility]* Diagnosis Encounter for screening mammogram for breast cancer documented [facility]* Diagnosis Gastroesophageal reflux disease, unspecified whether esophagitis present Type 2 diabetes mellitus with diabetic neuropathy, without long-term current use of insulin (HCC) [facility] Diagnosis Disequilibrium- Primary Dizziness and giddiness [...] unspecified single disease [facility]* Diagnosis Essential hypertension Unspecified essential hypertension [facility] Diagnosis Type 2 diabetes mellitus with diabetic neuropathy, without long-term current use of insulin (HCC) Gastroesophageal reflux disease, unspecified whether esophagitis present Essential hypertension Unspecified essential hypertension [facility] N[facility]* Re-instructed [...] Strain: 1 * Voice: level 5 initial YE-Rymoemyjmcrafk-Wfcxyoo[facility] [address] Work Phone: [facility] (narrative)* Diagnostic Procedure Only (Routine) - Pending Review Specialty Diagnoses / Procedures Referred By Alba christian Referred To Contact [facility] Diagnoses Encounter for screening mammogram for malignant neoplasm of breast Procedures GABO SCREENING W PRAVEENA SCREENING DIGITAL BREAST TOMOSYNTHESIS BI SCREENING MAMMOGRAPHY BI 2-VIEW BREAST INC Zach Matos MD [address] [place] [address] [facility] [address] [place] [address] Referral ID Status Reason Start Date Expiration Date Visits Requested Visits Authorized [id number] Pending Review Auto-Generat ed Referral 09/13/2021 10/13/2022 1 1 [facility] for referral (narrative)* Diagnostic Procedure Only (Routine) - Pending Review Specialty Diagnoses / Procedures Referred By Alba christian Referred To Contact [facility] Diagnoses Encounter for screening mammogram for breast cancer Procedures GABO SCREENING W PRAVEENA SCREENING DIGITAL BREAST TOMOSYNTHESIS BI SCREENING MAMMOGRAPHY BI 2-VIEW BREAST INC Zach Matos MD [address] [place] [address] [facility] [address] [place] [address] Referral ID Status Reason Start Date Expiration Date Visits Requested Visits Authorized [id number] Pending Review Auto-Generat ed Referral 08/13/2022 09/12/2023 1 1 [facility] Summary Purpose Family History No Family History Records FoundNo Family History Records FoundNo Family History Records FoundNo Family History Records FoundNo Family History Records Found Advance Directives No Advanced Directives Records FoundDocuments on File Type Date Recorded 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 Advance Directive(s) 11/11/2019 11:24 AM me john Advance Directive(s) 11/01/2019 1:20 PM Advance Directive(s) 06/22/2015 9:11 AM Advance Directive(s) 06/13/2015 10:35 AM Documents on File Type Date Recorded 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 Advance Directive(s) 11/11/2019 11:24 AM me john Advance Directive(s) 11/01/2019 1:20 PM Advance Directive(s) 06/22/2015 9:11 AM Advance Directive(s) 06/13/2015 10:35 AM Chief Complaint HoarsenessHoarsenessHoarseness Reason for Referral Specialty Diagnoses / Procedures Referred By Alba christian Referred To Contact Physical Therapy Diagnoses Disequilibrium History of falling Procedures CONSULT TO PHYSICAL THERAPY Zach Garcia MD [address] [place] [address] Referral ID Status Reason Start Date Expiration Date Visits Requested Visits Authorized [id number] Ref Not Required PCP Requested Referral 09/24/2022 09/24/2023 1 1 Specialty Diagnoses / Procedures Referred By Alba christian Referred To Contact [facility] Diagnoses Encounter for screening mammogram for malignant neoplasm of breast Procedures GABO SCREENING W PRAVEENA SCREENING DIGITAL BREAST TOMOSYNTHESIS BI SCREENING MAMMOGRAPHY BI 2-VIEW BREAST INC CAD Zach Garcia MD [address] [place] [address] [facility] [address] [place] [address] Referral ID Status Reason Start Date Expiration Date Visits Requested Visits Authorized [id number] Pending Review Auto-Generat ed Referral 09/24/2022 10/24/2023 1 1 Additional Source Comments INFORMATION SOURCE (unrecogn ized section and content) DATE CREATED AUTHOR AUTHOR'S ORGANIZ ATION 07/11/2020 [facility] DATE CREATED AUTHOR AUTHOR'S ORGANIZ ATION 01/19/2021 [facility] DATE CREATED AUTHOR AUTHOR'S ORGANIZ ATION 07/20/2021 [facility] DATE CREATED AUTHOR AUTHOR'S ORGANIZ ATION 04/21/2023 [facility] Source Comments (unrecognize d section and content) In the event this informatio n is protected by the Federal Confidentiality of Alcohol and Drug Abuse Patient Records regulations: The Federal rules restrict any use of the information to criminally investigate or prosecute any alcohol or drug abuse patient.[facility] the event this information is protected by the Federal Confidentiality of Alcohol and Drug Abuse Patient Records regulations: The Federal rules restrict any use of the information to criminally investigate or prosecute any alcohol or drug abuse patient.[facility] Center[facility] the event this information is protected by the Federal Confidentiality of Alcohol and Drug Abuse Patient Records regulations: The Federal rules restrict any use of the information to criminally investigate or prosecute any alcohol or drug abuse patient.[facility] Center[facility] the event this information is protected by the Federal Confidentiality of Alcohol and Drug Abuse Patient Records regulations: The Federal rules restrict any use of the information to criminally investigate or prosecute any alcohol or drug abuse patient.[facility] Center[facility] the event this information is protected by the Federal Confidentiality of Alcohol and Drug Abuse Patient Records regulations: The Federal rules restrict any use of the information to criminally investigate or prosecute any alcohol or drug abuse patient.[facility] CenterIn the event this information is protected by the Federal Confidentiality of Alcohol and Drug Abuse Patient Records regulations: The Federal rules restrict any use of the information to criminally investigate or prosecute any alcohol or drug abuse patient.[facility] CenterIn the event this information is protected by the Federal Confidentiality of Alcohol and Drug Abuse Patient Records regulations: The Federal rules restrict any use of the information to criminally investigate or prosecute any alcohol or drug abuse patient.[facility] CenterIn the event this information is protected by the Federal Confidentiality of Alcohol and Drug Abuse Patient Records regulations: The Federal rules restrict any use of the information to criminally investigate or prosecute any alcohol or drug abuse patient.[facility] Center[facility] the event this information is protected by the Federal Confidentiality of Alcohol and Drug Abuse Patient Records regulations: The Federal rules restrict any use of the information to criminally investigate or prosecute any alcohol or drug abuse patient.[facility] CenterIn the event this information is protected by the Federal Confidentiality of Alcohol and Drug Abuse Patient Records regulations: The Federal rules restrict any use of the information to criminally investigate or prosecute any alcohol or drug abuse patient.[facility] CenterIn the event this information is protected by the Federal Confidentiality of Alcohol and Drug Abuse Patient Records regulations: The Federal rules restrict any use of the information to criminally investigate or prosecute any alcohol or drug abuse patient.[facility] CenterIn the event this information is protected by the Federal Confidentiality of Alcohol and Drug Abuse Patient Records regulations: The Federal rules restrict any use of the information to criminally investigate or prosecute any alcohol or drug abuse patient.[facility] CenterIn the event this information is protected by the Federal Confidentiality of Alcohol and Drug Abuse Patient Records regulations: The Federal rules restrict any use of the information to criminally investigate or prosecute any alcohol or drug abuse patient.[facility] Reason for Visit (unrecogniz ed [...] Care Teams (unrecognized sec tion and content) Traffic Monitor Specialist Relationship Specialty Start Date End Date Zach Garcia MD [address] [place] [address] PCP - General Internal Medicine 02/24/11 Traffic Monitor Specialist Relationship Specialty Start Date End Date Zach Garcia MD [address] [facility] [place] [address] PCP - General Internal Medicine 02/24/11 Traffic Monitor Specialist Relationship Specialty Start Date End Date Zach Garcia MD [address] [facility] [place] [address] PCP - General Internal Medicine 02/24/11 Traffic Monitor Specialist Relationship Specialty Start Date End Date Zach Garcia MD [address] [facility] [place] [address] PCP - General Internal Medicine 02/24/11 Traffic Monitor Specialist Relationship Specialty Start Date End Date Zach Garcia MD [address] [facility] [place] [address] PCP - General Internal Medicine 02/24/11 Traffic Monitor Specialist Relationship Specialty Start Date End Date Zach Garcia MD [address] [facility] [place] [address] PCP - General Internal Medicine 02/24/11 Traffic Monitor Specialist Relationship Specialty Start Date End Date Zach Garcia MD [address] [facility] [place] [address] PCP - General Internal Medicine 02/24/11 Traffic Monitor Specialist Relationship Specialty Start Date End Date Zach Garcia MD [address] [facility] [place] [address] PCP - General Internal Medicine 02/24/11 Traffic Monitor Specialist Relationship Specialty Start Date End Date Zach Garcia MD [address] [facility] [place] [address] PCP - General Internal Medicine 02/24/11 Traffic Monitor Specialist Relationship Specialty Start Date End Date Zach Garcia MD [address] [place] [address] PCP - General Internal Medicine 02/24/11 Traffic Monitor Specialist Relationship Specialty Start Date End Date Zach Garcia MD [address] [place] [address] PCP - General Internal Medicine 02/24/11 FOR [...] BE BASED ON THE PRIMARY CLINICAL RECORDS. [employer] [facility]. provides no warranty or guarantee of the accuracy or completeness of information in this document.
== END | disposition home or self-care (01) ==
PROVIDERS: PCP Internal Medicine
DX: E11.40 Type 2 diabetes mellitus with diabetic neuropathy, unspecified (principal)
CPT/HCPCS: 36415; 80048; 83036

== ENCOUNTER → 2023-05-28 | Outpatient (CLI) | payer OTHER, SELFPAY ==
[2023-05-28 11:03] LABS: Erythrocyte Sedimentation Rate 9 mm/hr (0-30)
[2023-05-28 11:05] LABS: Absolute Lymphocyte Count 1.69 X10^3/uL (0.83-4.51); Absolute Neutrophil Count 3.2 X10^3/uL (2.0-7.7); Basophil# 0.06 X10^3/uL; Basophil% 1.1 % (0-1); Eosinophil# 0.12 X10^3/uL; Eosinophils% 2.2 % (0-5); Hematocrit 43.7 % (37-47); Hemoglobin 13.4 g/dL (12.0-15.0); Lymphocyte # 1.69 X10^3/ul (0.83-4.51); Lymphocyte % 30.3 % (19-41); Mean Corp Hgb Conc 30.7 g/dL (32-36); Mean Corpuscular Hgb 25.4 pg (27.0-32.0); Mean Corpuscular Volume 82.9 fL (81-99); Mean Platelet Vol. 9.9 fl (6.2-12.0); Monocyte# 0.46 X10^3/uL; Monocyte% 8.3 % (0-10); NRBC Flagged by Analyzer 0 % (0-5); Neutrophil % 57.4 % (47-70); Platelet Count 198 K/mm3 (150-450); RBC Distribution Width CV 14.6 % (11.6-14.6); RBC Distribution Width SD 43.6 fl (35.1-43.9); Red Blood Count 5.27 M/mm3 (4.2-5.4); White Blood Count 5.6 K/mm3 (4.4-11.0)
[2023-05-28 11:33] LABS: Vitamin B12 247 pg/mL (211-911); Vitamin D,25 Hydroxy 18.1 ng/mL
[2023-05-28 12:12] LABS: ALB/GLOB Ratio 0.9 RATIO (0.9-2.4); AST(SGOT) 22 U/L (15-37); Alanine Aminotransfer ALT/SGPT 41 U/L (13-56); Albumin, Serum 3.7 g/dL (3.2-5.0); Alkaline Phosphatase 92 U/L (45-117); Anion Gap 4 (5-15); BUN 15 mg/dL (7-18); BUN/Creat Ratio 22.3 RATIO (10-20); CRP < 2.90 mg/L (0.0-3.0); Calcium,Total 9.2 mg/dL (8.5-10.1); Chloride 106 mmol/L (98-107); Creatinine, Serum 0.67 mg/dL (0.55-1.02); EST Glomerular Filtration Rate 94 mL/min (>60); Est Glom Filt Rate - Afr Amer 113 mL/min (>60); Globulin 4.3 g/dL (2.2-4.2); Glucose 168 mg/dL (74-106); LDH 181 U/L (84-246); Sodium Level 138 mmol/L (136-145)
[2023-05-30 17:07] LABS: Vitamin D 1,25-Dihydroxy 50.8 pg/mL (24.8-81.5)
[2023-06-01 10:08] LABS: QNTFERON TB Mitogen Value > 10.00 IU/mL (.); QNTFERON TB Nil Value 0.03 IU/mL (.); QNTFERON TB1+ Ag Value 0.05 IU/mL (.); QNTFERON TB2+ Ag Value 0.06 IU/mL (.); QNTIFERON TB Positive Criteria Negative (Negative)
== END | disposition home or self-care (01) ==
PROVIDERS: PCP Internal Medicine; Referring Provider Internal Medicine Gastroenterology; Visit Provider Internal Medicine Gastroenterology
DX: K50.10 Crohn's disease of large intestine without complications (principal)
CPT/HCPCS: 36415; 80053; 82306; 82607; 82652; 82746; 83615; 85025; 85652; 86140; 86480

== ENCOUNTER → 2023-06-01 | Outpatient (CLI) | payer OTHER, SELFPAY ==
--- OUTSIDE RECORDS SUMMARY | 2023-06-01 07:38 | XMS RPT_ITS | CCD ---
Author Name Unknown Address [address] [place] [address] Organization [facility] Care Team Providers Care Seismology Technical Officer Name Role Phone CHARMAINE BRONSON Unavailable Unavailable ZACH GARCIA Unavailable Unavailable CHARMAINE BRONSON Unavailable Unavailable ZACH GARCIA Unavailable Unavailable CHARMAINE BRONSON Unavailable Unavailable ZACH GARCIA Unavailable Unavailable Zach Garcia Unavailable [phone] Unavailable Unavailable Zach Garcia MD Primary Care Provider [phone] Admitting Unavailable CHARMAINE BRONSON DR Attending Unavailable CHARMAINE BRONSON DR Primary Care Unavailable FLORENCE SMITH PAC Admitting Unavailable FLORENCE SMITH PAC Attending Unavailable FLORENCE SMITH PAC Primary Care Unavailable ZACH GARCIA MD Consulting Unavailable PROVIDER, UNKNOWN Consulting Unavailable Zach Garcia MD Primary Care Provider [phone] Zach Garcia MD Primary Care Provider [phone] ZACH GARCIA Attending Unavailable ZACH GARCIA Primary Care Unavailable ZACH GARCIA Primary Care Unavailable ZACH GARCIA Attending Unavailable ZACH GARCIA Primary Care Unavailable OLDER, KENIA Attending Unavailable ZACH GARCIA Attending Unavailable ZACH GARCIA Primary Care Unavailable ZACH GARCIA Referring Unavailable ZACH GARCIA Primary Care Unavailable Allergies Allergy Classification Reported Allergen(s) Allergy Type Date of Onset Reaction(s) Facility (5 sources) Sulfamethoxazole ; Translations: [sulfa] Drug Allergy -Otolaryngo [facility] Work Phone: (14 sources) cefdinir; Translations: [CEFDINIR] Drug Allergy 06-23-2006 [facility] Work Phone: (14 sources) Doxycycline; Translations: [DOXYCYCLINE MONOHYDRATE] Drug Allergy 01-15-2011 Hives, Swelling, Anaphylaxis [facility] Work Phone: (14 sources) Etodolac; Translations: [ETODOLAC] Drug Allergy 01-07-2011 Rash, Swelling, Itching [facility] Work Phone: (14 sources) sulfaSALAzine; Translations: [SULFASALAZINE] Drug Allergy 09-19-2011 [facility] Work Phone: (14 sources) Sulfa Dyne; Translations: [SULFA DYNE] Drug Allergy 09-19-2011 [facility] Work Phone: Medications Current Medications Medication [...] Drug Class(es) Dates Sig (Normalized) Sig (Original) [id number] 200 actuat albuterol 0.09 mg/actuat metered dose [...] 58 mm[Hg] Zach Garcia MD Work Phone: [facility] 09-24-2022 17:32-0400 Systolic blood pressure 118 mm[Hg] Zach Garcia MD Work Phone: [facility] 09-24-2022 17:00-0400 Body weight 80.29 kg Zach Garcia MD Work Phone: [facility] 09-24-2022 17:00-0400 Heart rate 80 /min Zach Garcia MD Work Phone: [facility] 09-24-2022 17:00-0400 Respiratory rate 18 /min Zach Garcia MD Work Phone: [facility] 09-13-2021 10:51-0400 Body temperature 97.81 [degF] Zach Garcia MD Work Phone: [facility] 09-13-2021 10:51-0400 Body weight 82.56 kg Zach Garcia MD Work Phone: [facility] 09-13-2021 10:51-0400 Diastolic blood pressure 60 mm[Hg] Zach Garcia MD Work Phone: [facility] 09-13-2021 10:51-0400 Heart rate 95 /min Zach Garcia MD Work Phone: [facility] 09-13-2021 10:51-0400 Respiratory rate 16 /min Zach Garcia MD Work Phone: [facility] 09-13-2021 10:51-0400 SaO2% (BldA) [Mass fraction] 97 % Zach Garcia MD Work Phone: [facility] 09-13-2021 10:51-0400 Systolic blood pressure 120 mm[Hg] Zach Garcia MD Work Phone: [facility] 07-08-2021 10:08-0400 Body weight 84.37 kg Jennifer Varghese SUPERVISOR [employer]ER[employer] Work Phone: [facility] 07-08-2021 10:08-0400 Diastolic blood pressure 72 mm[Hg] Jennifer Varghese SUPERVISOR D[employer]ER.[employer]EST [employer]ROLMAN Work Phone: [facility] 07-08-2021 10:08-0400 Heart rate 92 /min Jennifer Varghese SUPERVISOR D[employer] Work Phone: [facility] 07-08-2021 10:08-0400 Respiratory rate 16 /min Jennifer Varghese SUPERVISOR D[employer] Work Phone: [facility] 07-08-2021 10:08-0400 Systolic blood pressure 132 mm[Hg] Jennifer Varghese SUPERVISOR D[employer]ER[employer] Work Phone: [facility] 01-01-2021 12:52-0400 Body height 162.56 cm Zach Garcia [facility] Work Phone: 01-01-2021 12:52-0400 Body mass index (BMI) [Ratio] 32.61 kg/m2 Zach Garcia [facility] Work Phone: 01-01-2021 12:52-0400 Body surface area Derived from formula 1.91 m2 Zach Garcia Work Phone: [facility] [address] Work Phone: 01-01-2021 12:52-0400 Body weight 86.18 kg Zach Garcia Work Phone: [facility] [address] Work Phone: Encounters Encounter Date Encounter Type Care Provider Facility Start: 04-23-2023 End: 04-23-2023 ambulatory ZACH GARCIA Facility:[facility] Start: 01-07-2023 End: 01-08-2023 ambulatory ZACH GARCIA Facility:[facility] Start: 12-30-2022 Refill Zach lr MD Work Phone: [facility] [place] Procedures Date Procedure Procedure Detail Performing Clinician Start: 11-04-2021 Colonoscopy Zach Rivera MD Work Phone: Start: 11-14-2020 Mammography Jennifer bui SUPERVISOR [employer] Work Phone: Start: 10-27-2019 Colonoscopy Jennifer bui SUPERVISOR [employer] Work Phone: Plan of Treatment Date Care Activity Detail Author Start: 06-01-2028 Urine microalbumin profile [facility] Start: 11-04-2026 Colonoscopy COLONOSCOPY [facility] Start: 11-04-2026 COLORECTAL CANCER SCREENING COLORECTAL CANCER SCREENING [facility] Start: 10-26-2024 Colonoscopy COLONOSCOPY [facility] Start: 10-26-2024 COLORECTAL CANCER SCREENING COLORECTAL CANCER SCREENING [facility] Start: 09-25-2023 ANNUAL PCP TEAM QUANTITATIVE MANAGER MARI DISEASE VISIT ANNUAL PCP TEAM CHRONIC DISEASE VISIT [facility] Start: 09-25-2023 BP CONTROLLED (<130/80) BP CONTROLLE D (<130/80) [facility] Start: 09-25-2023 COVID-19 VACCINE (4 - Booster for Pfizer series) COVID-19 VACCINE (4 - Booster for Pfizer series) [facility] Immunizations Immunization Date Immunization Notes Care Provider Fa cility 09-24-2022 pneumococcal Conjuga te, unspecified formulation Zach Garcia MD Work Phone: [facility] Work Phone: 09-24-2022 pneumococcal (PCV20) vaccine, 20 valent (PREVNAR 20) Zach Garcia MD Work Phone: [facility] Work Phone: 06-16-2022 Hepatitis B vaccine (recombinant), CpG adjuvanted Zach Garcia MD Work Phone: [facility] Work Phone: 04-13-2021 COVID-19 original vaccine, age 12+ yr, monovalent (PFIZER-BIONTECH - PURPLE TOP) Zach Garcia MD Work Phone: [facility] Work Phone: 03-11-2021 influenza, injectabl e, quadrivalent, contains preservative Jennifer Varghese SUPERVISOR D[employer]ER[employer] Work Phone: [facility] Work Phone: 03-11-2021 influenza virus vacc ine, unspecified formulation Zach Garcia MD Work Phone: [facility] 2020 zoster vaccine recombinant Jennifer Varghese SUPERVISOR D[employer] Work Phone: [facility] Work Phone: 09-01-2020 zoster vaccine recombinant Jennifer Varhgese SUPERVISOR D[employer]ER[employer]MAN Work Phone: [facility] Work Phone: 07-31-2020 COVID-19 vaccine, ag e 12+ yr (PFIZER-BIONTECH - PURPLE TOP) Jennifer Varghese SUPERVISOR D[employer]ER[employer]MAN Work Phone: [facility] Work Phone: 06-28-2020 COVID-19 vaccine, ag e 12+ yr (PFIZER-BIONTECH - PURPLE TOP) Jennifer Varghese SUPERVISOR [employer] Work Phone: [facility] Work Phone: 03-05-2020 influenza, seasonal, injectable Jennifer Varghese SUPERVISOR D[employer] Work Phone: [facility] Work Phone: 01-17-2019 influenza, injectabl e, quadrivalent, contains preservative Jennifer Varghese SUPERVISOR D[employer]ER[employer]MAN Work Phone: [facility] Work Phone: 06-01-2018 tetanus and diphther ia toxoids, adsorbed, preservative free, for adult use (5 Lf of tetanus toxoid and 2 Lf of diphtheria toxoid) Jennifer Varghese SUPERVISOR D[employer] Work Phone: [facility] Work Phone: 03-09-2018 influenza, injectabl e, quadrivalent, contains preservative Jennifer Varghese SUPERVISOR D[employer]ER.[employer] Work Phone: [facility] Work Phone: 02-23-2017 influenza, injectabl e, quadrivalent, contains preservative Jennifer Varghese SUPERVISOR D[employer]ER[employer]ROLMAN Work Phone: [facility] 02-04-2016 influenza, injectabl e, quadrivalent, contains preservative Jennifer Varghese SUPERVISOR D[employer]ER[employer] Work Phone: [facility] 01-04-2015 influenza, seasonal, injectable Jennifer Varghese SUPERVISOR D[employer] Work Phone: [facility] 01-05-2014 influenza virus vacc ine, unspecified formulation Jennifer Varghese SUPERVISOR D[employer]ER[employer] Work Phone: [facility] 01-19-2013 influenza virus vacc ine, unspecified formulation Jennifer Varghese SUPERVISOR D[employer] Work Phone: [facility] 02-23-2012 influenza virus vacc ine, unspecified formulation Jennifer Varghese SUPERVISOR D[employer]ER[employer] Work Phone: [facility] Work Phone: 05-28-2011 pneumococcal polysaccharide vaccine, 23 valent Jennifer Varghese SUPERVISOR [employer] Work Phone: [facility] Work Phone: 03-16-2011 influenza virus vacc ine, unspecified formulation Jennifer Varghese SUPERVISOR [employer] Work Phone: [facility] Work Phone: 05-26-2008 tetanus toxoid, redu natalie diphtheria toxoid, and acellular pertussis vaccine, adsorbed Jennifer Varghese SUPERVISOR D[employer]ER[employer]EST [employer]ROLMAN Work Phone: [facility] Work Phone: Payers Date Payer Category Payer Private Health Insurance ARLEY Beckwith LISA [facility] MtoV [id number] 2022-Present [phone] [address] [place] [address] PPO [id number] 2022 Private Health Insurance [id number] 2021 Unknown 2021 Unknown ABRAHAM ANGIE KAY PPO [id number] 2021-Present [phone] [address] [place] [address] PPO [id number] 2017 Private Health Insurance [id number] 1960 Unknown [id number] 1960 Unknown [id number] Unknown [id number] Social History Date Type Detail Facility Start: 02-24-2011 End: 08-13-2022 Non-smoker Non-smoker [facility] Start: 02-24-2011 End: 08-13-2022 Tobacco smoking status IAIS Ex-smoker [facility] Work Phone: End: 04-26-2003 History of tobacco use Current smoker [facility] Work Phone: End: 04-26-2003 History of tobacco use Cigarette Smoker [facility] Work Phone: Start: 02-24-2011 End: 08-13-2022 Tobacco use and exposure Smokeless tobacco non-user [facility] Work Phone: Start: 07-08-2021 End: 09-24-2022 Alcohol intake Current non-drinker of alcohol (finding) [facility] Start: 04-26-2020 History SDOH Stress 2 [facility] Start: 04-26-2020 History SDOH Housing Unable to Pay 3 [facility] Start: 04-26-2020 History SDOH Housing Places Lived 1 [facility] Start: 1960 Sex Assigned At Not on file [facility] Start: 06-28-2021 End: 09-13-2021 Exposure to SARS-CoV-2 (event) Not sure [facility] Work Phone: Start: 04-26-2020 End: 08-13-2022 Social connection and isolation panel [facility] In a typical week, h ow many times do you talk on the telephone with family, friends, or neighbors? Patient refused [facility] Are you now , , , , never or living with a partner? Refused [facility] Do you feel stress - tense, restless, nervous, or anxious, or unable to sleep at night because your mind is troubled all the time - these days [OSQ] Only a little [facility] (I/We) worried wheth er (my/our) food would run out before (I/we) got money to buy more. DK or Refused [facility] Medical Equipment Procedure Code Equipment Code Equipment Origin al Text Equipment Identifier Dates Start: 04-05-2020 End: 05-02-2022 Clinical Notes 06-05-2019 to 04-23-2023 Telephone Encounter - Jerri Goldstein RN - 01/02/2023 8:45 AM EDTTelephone Encounter - Deneen Reeder LPN - 12/30/2022 9:44 AM EDTViclarissa Garcia MD - 09/24/2022 5:13 PM EDT Note Date & Type Note Facility 04-23-2023 Note HNO ID: [id number] Author: ZACH GARCIA MD Service: ? Author Type: Physician Type: Progress Notes Filed: 04/23/2023 23:13 Note Text: This note was created using TiqIQriter. Subjective Patient presents with: F/U 3 Month Leslie Rodriguez is a 62 year old female. Her diabetes mellitus, hypertension, and asthma were controlled. Eye exam needed scheduled. She complained of recurrent mouth sores, relieved by some left over medication for thrush. Her asthma was controlled. Review of Systems Constitutional: Negative for fatigue and fever. HENT: Positive for mouth sores. Negative for congestion, nosebleeds, rhinorrhea, sinus pressure and sore throat. Respiratory: Negative for cough, wheezing and stridor. Cardiovascular: Negative for chest pain, palpitations and leg swelling. Genitourinary: Negative for vaginal bleeding and vaginal discharge. Musculoskeletal: Positive for arthralgias. Neurological: Negative for dizziness and headaches. ACTIVE PROBLEM LIST Essential Hypertension [...] Types: Cigarettes Quit date: 04/26/2003 Years since quittin.0 Smokeless tobacco: Never Vaping Use Vaping Use: Never used Substance Use Topics Alcohol use: No Drug use: No Current Outpatient Medications Medication Sig lisinopril (ZESTRIL) 5 mg tablet Take 1 tablet by mouth once daily. Dose reduced. montelukast (SINGULAIR) 10 mg tablet Take 1 tablet by mouth daily at bedtime. atorvastatin (LIPITOR) 10 mg tablet Take 1 tablet by mouth daily at bedtime. For cholesterol. omeprazole (PRILOSEC) 40 mg capsule Take 1 capsule by mouth once daily. potassium chloride SR (MICRO-K) 8 mEq cpER Take 1 capsule by mouth daily with breakfast. amitriptyline (ELAVIL) 75 mg tablet Take 1 tablet by mouth daily at bedtime. folic acid 1 mg tablet Take 2 tablets by mouth once daily. blood sugar diagnostic (DragonWaveUCH ULTRA TEST) test strip Test once daily. Dx:E11.40. No insulin. empagliflozin (JARDIANCE) 25 mg tablet Take 1 tablet by mouth once daily. Take 1 tablet once daily in the morning glipiZIDE (GLUCOTROL XL) 10mg 24 hr tablet Take 1 tablet by mouth once daily. lancets (ScanditTOUCH DELICA LANCETS) 30 gauge Test blood sugar once daily. Dx: E11.9. Insulin: No fluticasone-vilanterol (BREO ELLIPTA) 200-25 mcg/dose inhaler Inhale 1 Inhalation as instructed once daily. ustekinumab (STELARA) 130 mg/26 mL injection albuterol HFA (PROVENTIL HFA, VENTOLIN HFA) 90 mcg/actuation inhaler Inhale 2 Puffs as instructed every 4 hours as needed for Wheezing/Shortness of Breath. fluticasone (FLONASE) 50 mcg/actuation nasal spray Use 1 Santa Ysabel in each nostril once daily. Blood-Glucose Meter (DragonWaveUCH ULTRA2) monitoring kit Use as directed to test blood sugar multivitamin tablet Take 1 tablet by mouth once daily. No current facility-administered medications for this visit. Objective BP 128/70 (BP Site: Left Arm, BP Position: Sitting, BP Cuff Size: Large Adult) Pulse 92 Temp 36.7 ?C (98.1 ?F) (Temporal) Resp 16 Wt 80.3 kg (177 lb) BMI 29.45 kg/m? Physical Exam Constitutional: General: She is not in acute distress. HENT: Head: Normocephalic. Mouth/Throat: Mouth: Mucous membranes are dry. Pharynx: No pharyngeal swelling or posterior oropharyngeal erythema. Comments: Tongue dry, fissured, with scattered whitish coat. Eyes: General: No scleral icterus. Conjunctiva/sclera: Conjunctivae normal. Cardiovascular: Rate and Rhythm: Normal rate and regular rhythm. Heart sounds: No murmur heard. No gallop. Pulmonary: Effort: No respiratory distress. Breath sounds: No wheezing or rales. Musculoskeletal: Right lower leg: No edema. Left lower leg: No edema. Lymphadenopathy: Cervical: No cervical adenopathy. Neurological: General: No focal deficit present. Mental Status: She is alert. Test results pertinent to today's visit were reviewed and discussed with the patient. Assessment and Plan 1. Thrush - ICD9: 112.0, ICD10: B37.0 (primary diagnosis) - NYSTATIN 100,000 UNIT/ML ORAL SUSPENSION 2. Fibromyalgia - ICD9: 729.1, ICD10: M79.7 Controlled. - AMITRIPTYLINE 75 MG TABLET 3. Type 2 diabetes mellitus with diabetic neuropathy, without long-term current use of insulin (HCC) - ICD9: 250.60, 357.2, ICD10: E11.40 - Controlled - Continue current medications - COMP METABOLIC PANEL - LIPID PANEL BASIC - HGB A1C 4. Essential hypertension - ICD9: 401.9, ICD10: I10 - Controlled - Continue current medicat (more content not included)... [facility] 04-15-2023 Note HNO ID: [id number] Author: SRAVAN MEZA LPN Service: ? Author Type: LICENSED NURSE Type: Progress Notes Filed: 04/15/2023 14:51 Note Text: Scan on 04/15/2023 9:27 AM by Provider, Michelle, PATonieC: Mammography [facility] 01-07-2023 Note HNO ID: [id number] Author: Kenia Maguire APRN.CASINO BANKER Service: ? Author Type: Nurse Practitioner Type: [...] of tibial vein of left lower extremity ([facility]) 08/10/2019 Cervicalgia 01/20/2006 Chronic cough 03/08/2020 COVID-19 virus infection 04/27/2020 Crohn disease ([facility]) 07/04/2011 Diabetes mellitus ([facility]) 11/20/2009 Diarrhea Esophageal reflux 05/26/2008 Fibromyalgia 03/22/2004 HYPERTENSION NOS 05/26/2008 Inflammatory polyarthropathies ([facility]) 05/28/2011 Irritable bowel syndrome 01/18/2010 Irritable bowel Moderate persistent asthma without complication 09/18/2020 OBESITY NOS 05/26/2008 Palpitations 11/20/2009 Type 2 diabetes mellitus with diabetic neuropathy, without long-term current use of insulin ([facility]) 02/27/2016 Type II or unspecified type diabetes mellitus without mention of complication, not stated as uncontrolled 2009 PAST SURGICAL HISTORY Procedure Laterality Date ARTHRP KNE CONDYLEANDPLATU MEDIALANDLAT COMPARTMENTS Right 06/15/2017 CHOLECYSTECTOMY 09/13/1973 Cholecystectomy COLONOSCOPY 03/21/2018 COLONOSCOPY 10/27/2019 COLONOSCOPY 01/24/2021 Dr. Sarah More COLONOSCOPY FLX DX W/COLLJ SPEC WHEN PFRMD 03/27/1997 Colonoscopy COLONOSCOPY FLX DX W/COLLJ SPEC WHEN PFRMD 06/26/2011 Colonoscopy [place] [facility] COLONOSCOPY FLX DX W/COLLJ SPEC WHEN [...] by mouth once daily. blood sugar diagnostic (ONETOUCH ULTRA TEST) test strip Test once daily. Dx:E11.40. No insulin. empagliflozin (JARDIANCE) 25 mg tablet Take 1 tablet by mouth once daily. Take 1 tablet once daily in the morning glipiZIDE (GLUCOTROL XL) 10mg 24 hr tablet Take 1 tablet by mouth once daily. lancets (ScanditTOUCH DELICA LANCETS) 30 gauge Test blood sugar once daily. Dx: E11.9. Insulin: No fluticasone-vilanterol (BREO ELLIPTA) 200-25 mcg/dose inhaler Inhale 1 Inhalation as instructed once daily. ustekinumab (STELARA) 130 mg/26 mL injection albuterol HFA (PROVENTIL HFA, VENTOLIN HFA) 90 mcg/actuation inhaler Inhale 2 Puffs as instructed every 4 hours as needed for Wheezing/Shortness of Breath. fluticasone (FLONASE) 50 mcg/actuation nasal spray Use 1 Santa Ysabel in each nostril once daily. Blood-Glucose Meter (ScanditTOUCH ULTRA2) monitoring kit Use as directed to [...] quittin.7 Smokeless tobac (more content not included)... [facility] 01-02-2023 Miscellaneous Notes Patient calls to [...] pharmacy. No need to notify patient. Nay Ding documented in this encounter [facility] 12-23-2022 Miscellaneous Notes Patient has [...] mouth once daily. Please review and advise. iQan Khan documented in this encounter [facility] 12-22-2022 Miscellaneous Notes Patient notified, she wants Lab orders faxed to [facility] Lab. Done. Deneen Reeder LPN There are labs already ordered Kenia Maguire APRN.CNP Patient called requesting labs Please advise documented in this encounter [facility] 09-24-2022 Note HNO ID: [id number] Author: Zach Garcia MD Service: ? Author Type: Physician Type: Progress Notes Filed: 09/24/2022 11:01 PM Note Text: This note was created using FusionAds. Subjective Leslie Rodriguez is a 61 year [...] mouth daily at bedtime. blood sugar diagnostic (WebRadar ULTRA TEST) test strip Test once daily. [...] capsule by mouth daily with breakfast. lancets (ScanditTOUCH DELICA LANCETS) 30 gauge Test blood sugar once daily. Dx: E11.9. Insulin: No fluticasone-vilanterol (BREO ELLIPTA) 200-25 mcg/dose inhaler Inhale 1 Inhalation as instructed once daily. albuterol HFA (PROVENTIL HFA, VENTOLIN HFA) 90 mcg/actuation inhaler Inhale 2 Puffs as instructed every 4 hours as needed for Wheezing/Shortness of Breath. fluticasone (FLONASE) 50 mcg/actuation nasal spray Use 1 Santa Ysabel in each nostril once daily. Blood-Glucose Meter (DragonWaveUCH ULTRA2) monitoring kit Use as directed to [...] 5. Encounter for (more content not included)... [facility] 09-24-2022 History of Present illness Narrative This note was created using FusionAds. Subjective Leslie Rodriguez is a 61 year [...] capsule by mouth daily with breakfast. lancets (DragonWaveUCH DELICA LANCETS) 30 gauge Test blood sugar once daily. Dx: E11.9. Insulin: No fluticasone-vilanterol (BREO ELLIPTA) 200-25 mcg/dose inhaler Inhale 1 Inhalation as instructed once daily. albuterol HFA (PROVENTIL HFA, VENTOLIN HFA) 90 mcg/actuation inhaler Inhale 2 Puffs as instructed every 4 hours as needed for Wheezing/Shortness of Breath. fluticasone (FLONASE) 50 mcg/actuation nasal spray Use 1 Santa Ysabel in each nostril once daily. Blood-Glucose Meter (DragonWaveUCH ULTRA2) monitoring kit Use as directed to [...] Zach Garcia MD documented in this encounter [facility] 09-17-2022 Miscellaneous Notes Prilosec to [...] Nay Garcia Pss documented in this encounter [facility] 08-13-2022 Note Patient Outreach (IN [facility]) LESLIE RODRIGUEZ ([id number]) 1960 F Date Time Provider Department 08/13/22 [...] breast cancer [Z12.31] Order(s):GABO SCREENING W PRAVEENA [[id number]] Order #: [id number] FUTURE Prescriptions as of 08/18/2022 - folic [...] by mouth daily with breakfast. - lancets (ONETOUCH DELICA LANCETS) 30 gauge Test blood sugar [...] (FLONASE) 50 mcg/actuation nasal spray Use 1 Santa Ysabel in each nostril once daily. - Blood-Glucose Meter (ScanditTOUCH ULTRA2) monitoring kit Use as directed to test blood sugar - multivitamin tablet Take 1 tablet by mouth once daily. Problem List As Of Date 08/13/2022 Noted Resolved Cervicalgia [M54.2] 01/20/2006 02/24/2011 Routine General Medical Examination at [facility]*05/26/2008 10/31/2011 Dermatophytosis of foot [B35.3] 05/26/2008 02/25/2011 Obesity, Unspecified [E66.9] 05/26/2008 07/19/2014 Essential hypertension [I10] 05/26/2008 Esophageal Reflux [K21.9] 05/26/2008 Dysmetabolic Syndrome X [E88.81] 07/07/2008 11/20/2009 Reflux [QNL1126] 11/20/2009 Heartburn [R12] 02/24/2011 Diabetes mellitus (HCC) [...] Encounter Status:Closed by JOSUE, PRODUSER on 08/18/22 [facility] 08-13-2022 Note HNO ID: [id number] Author: Zach Garcia MD Service: ? Author Type: Physician Type: Progress Notes Filed: 08/13/2022 9:54 AM Note Text: This note was created using TiqIQriter. Subjective Patient presents with: ED Follow-up Leslie [...] mouth daily at bedtime. blood sugar diagnostic (WebRadar ULTRA TEST) test strip Use as instructed [...] 1 tablet by mouth once daily. lancets (DragonWaveUCH DELICA LANCETS) 30 gauge Test blood sugar once daily. Dx: E11.9. Insulin: No fluticasone-vilanterol (BREO ELLIPTA) 200-25 mcg/dose inhaler Inhale 1 Inhalation as instructed once daily. ustekinumab (STELARA) 130 mg/26 mL injection albuterol HFA (PROVENTIL HFA, VENTOLIN HFA) 90 mcg/actuation inhaler Inhale 2 Puffs as instructed every 4 hours as needed for Wheezing/Shortness of Breath. fluticasone (FLONASE) 50 mcg/actuation nasal spray Use 1 Santa Ysabel in each nostril once daily. Blood-Glucose Meter (ScanditTOUCH ULTRA2) monitoring kit Use as directed to [...] A1C - ALBUMIN/C (more content not included)... [facility] 05-02-2022 Miscellaneous Notes MALACHI: 09/13/21 with [...] Luly Arnold Pss documented in this encounter [facility] 03-26-2022 Miscellaneous Notes Left a message to call the office and also mailed a letter asking pt to call the office to reschedule March apt. Mei Arnold LPN Left a message for pt to call the office and ask to speak to a nurse. Mei Arnold LPN My chart message to pt to call to rescheduled Mar. Patient due for follow-up Kenia Maguire APRN.CNP [...] Crista Heart Pss documented in this encounter [facility] 01-29-2022 Miscellaneous Notes Patient phones requesting refills as follows: Requested Prescriptions Pending Prescriptions Disp Refills atorvastatin (LIPITOR) 10 mg tablet 90 tablet 3 Sig: Take 1 tablet by mouth daily at bedtime. For cholesterol. Please review and advise. Jodee Seals LPN documented in this encounter [facility] 12-13-2021 Miscellaneous Notes Patient has [...] Misty Costello Pss documented in this encounter [facility] 12-02-2021 Miscellaneous Notes Checked with [facility], Patient did pickup RX. Deneen Reeder LPN [...] if something could be called into [facility]. Please advise. documented in this encounter [facility] 09-13-2021 History of Present illness Narrative This note was created using TreeRingter. Subjective Leslie Rodriguez is a 60 year [...] by mouth once daily. blood sugar diagnostic (DragonWaveUCH ULTRA TEST) test strip Use as instructed amitriptyline (ELAVIL) 100 mg tablet Take 1 tablet by mouth every evening. atorvastatin (LIPITOR) 10 mg tablet Take 1 tablet by mouth daily at bedtime. For cholesterol. lancets (DragonWaveUCH DELICA LANCETS) 30 gauge Test blood sugar once daily. Dx: E11.9. Insulin: No fluticasone-vilanterol (BREO ELLIPTA) 200-25 mcg/dose inhaler Inhale 1 Inhalation as instructed once daily. albuterol HFA (PROVENTIL HFA, VENTOLIN HFA) 90 mcg/actuation inhaler Inhale 2 Puffs as instructed every 4 hours as needed for Wheezing/Shortness of Breath. fluticasone (FLONASE) 50 mcg/actuation nasal spray Use 1 Santa Ysabel in each nostril once daily. Blood-Glucose Meter (DragonWaveUCH ULTRA2) monitoring kit Use as directed to [...] ICD10: Z12.31 - GABO SCREENING W PRAVEENA Zach Garcia MD documented in this encounter [facility] 07-08-2021 Instructions Jennifer Varghsee APRN.CNS - 07/08/2021 10:52 AM EDT Check with her surgeon regarding timing of surgery and what to do with your medications prior to surgery. 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 ACS NSQIP Surgical Risk Calculator 1. Age [...] No 19. BMI Class Calculation: Obese 1 [facility] labwork: May 08, 2021 WBC 6.2 [...] managing this, no recent exacerbation. Follows with life agent at [facility], recently seen in the office, she notes given okay to proceed with surgery by life agent. Review of Systems Respiratory: Positive for shortness [...] by mouth once daily. blood sugar diagnostic (DragonWaveUCH ULTRA TEST) test strip, Use as instructed amitriptyline (ELAVIL) 100 mg tablet, Take 1 tablet by mouth every evening. atorvastatin (LIPITOR) 10 mg tablet, Take 1 tablet by mouth daily at bedtime. For cholesterol. lancets (WebRadar DELICA LANCETS) 30 gauge, Test blood sugar once daily. Dx: E11.9. Insulin: No fluticasone-vilanterol (BREO ELLIPTA) 200-25 mcg/dose inhaler, Inhale 1 Inhalation as instructed once daily. ustekinumab (STELARA) 130 mg/26 mL injection, albuterol HFA (PROVENTIL HFA, VENTOLIN HFA) 90 mcg/actuation inhaler, Inhale 2 Puffs as instructed every 4 hours as needed for Wheezing/Shortness of Breath. fluticasone (FLONASE) 50 mcg/actuation nasal spray, Use 1 Santa Ysabel in each nostril once daily. Blood-Glucose Meter (WebRadar ULTRA2) monitoring kit, Use as directed to test blood sugar multivitamin tablet, Take 1 tablet by mouth once daily. PAST MEDICAL HISTORY Diagnosis Date Acute deep vein thrombosis (DVT) of tibial vein of left lower extremity (HCC) 08/10/2019 Cervicalgia 01/20/2006 Chronic cough 03/08/2020 COVID-19 virus infection 04/27/2020 Crohn disease ([facility]) 07/04/2011 Diabetes mellitus ([facility]) 11/20/2009 Diarrhea Esophageal reflux 05/26/2008 Fibromyalgia 03/22/2004 HYPERTENSION NOS 05/26/2008 Inflammatory polyarthropathies ([facility]) 05/28/2011 Irritable bowel syndrome 01/18/2010 Irritable bowel Moderate persistent asthma without complication 09/18/2020 OBESITY NOS 05/26/2008 Palpitations 11/20/2009 Type 2 diabetes mellitus with diabetic neuropathy, without long-term current use of insulin ([facility]) 02/27/2016 Type II or unspecified [...] be completed by Dr. Charmaine Bronson at [facility] July 28, 2021. Below average risk for surgery, 2.7% risk of serious complication, 3.6% of any complication by ACS NSQIP surgical risk calculator. EKG was completed at [facility] showed normal sinus rhythm. No need for additional testing other than lab work at this time. Recent lab work completed outside of [id number] window prior to surgery so can complete here or at [facility] per preference. Would like to do [...] 4 - Moderate documented in this encounter [facility] 01-17-2021 Note Plan of Care [...] believes PND contributes. 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 Patient's last HgA1C was HBA1C, [place] (%) Date Value 09/13/2011 6.2* 03/01/2011 6.6* [...] of this encounter (statuses as of 09/13/2021) [facility] History of Past illness Narrative* [...] 130-140 range. Patient's last HgA1C was HBA1C, [place] (%) Date Value 09/13/2011 6.2* 03/01/2011 6.6* [...] of this encounter (statuses as of 12/02/2021) [facility] History of Past illness Narrative* [...] 130-140 range. Patient's last HgA1C was HBA1C, [place] (%) Date Value 09/13/2011 6.2* 03/01/2011 6.6* [...] of this encounter (statuses as of 12/13/2021) [facility] History of Past illness Narrative* [...] of this encounter (statuses as of 01/31/2022) [facility] History of Past illness Narrative* [...] of this encounter (statuses as of 03/26/2022) [facility] History of Past illness Narrative* [...] 130-140 range. Patient's last HgA1C was HBA1C, [place] (%) Date Value 09/13/2011 6.2* 03/01/2011 6.6* [...] of this encounter (statuses as of 05/02/2022) [facility] History of Past illness Narrative* [...] 130-140 range. Patient's last HgA1C was HBA1C, [place] (%) Date Value 09/13/2011 6.2* 03/01/2011 6.6* [...] of this encounter (statuses as of 08/18/2022) [facility] History of Past illness Narrative* [...] 130-140 range. Patient's last HgA1C was HBA1C, [place] (%) Date Value 09/13/2011 6.2* 03/01/2011 6.6* [...] of this encounter (statuses as of 09/18/2022) [facility] History of Past illness Narrative* [...] of this encounter (statuses as of 09/25/2022) [facility] History of Past illness Narrative* [...] 130-140 range. Patient's last HgA1C was HBA1C, [place] (%) Date Value 09/13/2011 6.2* 03/01/2011 6.6* [...] of this encounter (statuses as of 12/22/2022) [facility] History of Past illness Narrative* [...] 130-140 range. Patient's last HgA1C was HBA1C, [place] (%) Date Value 09/13/2011 6.2* 03/01/2011 6.6* [...] of this encounter (statuses as of 12/23/2022) [facility] History of Past illness Narrative* [...] of this encounter (statuses as of 01/03/2023) [facility] History of Present illness Narrative* [...] per the patient. Works second shift at [employer]. Uses amitriptyline tohelp sleep. * PMH: N/a * FHx: reviewed and non-contributory to current complaint. * I personally reviewed the patient AEMR notes, and consult notes from Dr. An * CHING performed. All other systems are reviewed and are negative for complaint and as noted above. [facility] [address] Work Phone: [phone] 605-788503-01-2020 History of Present illness Narrative* LESLIE RODRIGUEZ [...] per the patient. Works second shift at [employer]. Uses amitriptyline to help sleep. * PMH: N/a * FHx: reviewed and non-contributory to current complaint. * I personally reviewed the patient AEMR notes, and consult notes from Dr. An * CHING performed. All other systems are reviewed and are negative for complaint and as noted above. IM[facility]assagsxhpgzsj-[facility]ud[facility] [address] Work Phone: [phone] 160-483403-01-2020 History of Present illness Narrative* LESLIE RODRIGUEZ [...] per the patient. Works second shift at [employer]. Uses amitriptyline to help sleep. * PMH: N/a * FHx: reviewed and non-contributory to current complaint. * I personally reviewed the patient AEMR notes, and consult notes from Dr. An * ROS performed. All other systems are reviewed and are negative for complaint and as noted above. [facility]al[facility]su[facility]lucuhk[facility] 8[address] Work Phone: Evaluation note* Diagnosis Preop exam for internal medicine- Primary Other specified pre-operative examination [facility] Diagnosis Fibromyalgia- Primary Mylagia and myositis, unspecified Type 2 diabetes mellitus with diabetic neuropathy, without long-term current use of insulin (HCC) Essential hypertension Unspecified essential hypertension Encounter for screening mammogram for malignant neoplasm of breast Other screening mammogram [facility] Essential hypertension Unspecified essential hypertension Gastroesophageal reflux disease, unspecified whether esophagitis present [facility] Diagnosis Type 2 diabetes mellitus with diabetic neuropathy, without long-term current use of insulin (HCC) [facility] Diagnosis Encounter for screening mammogram for breast cancer [facility] Diagnosis Gastroesophageal reflux disease, unspecified whether esophagitis present Type 2 diabetes mellitus with diabetic neuropathy, without long-term current use of insulin (HCC) [facility] Diagnosis Disequilibrium- Primary Dizziness and giddiness [...] unspecified single disease [facility] Diagnosis Essential hypertension Unspecified essential hypertension [facility] Diagnosis Type 2 diabetes mellitus with diabetic neuropathy, without long-term current use of insulin (HCC) Gastroesophageal reflux disease, unspecified whether esophagitis present Essential hypertension Unspecified essential hypertension [facility] N[facility]* Re-instructed [...] Strain: 1 * Voice: level 5 initial W[facility]-Nyfygbcldsshqe-KrzibgtChi [facility] [address] Work Phone: Reason for referral (narrative)* Diagnostic Procedure Only (Routine) - Pending Review Specialty Diagnoses / Procedures Referred By Contac t Referred To Contact [facility] Diagnoses Encounter for screening mammogram for malignant neoplasm of breast Procedures GABO SCREENING W PRAVEENA SCREENING DIGITAL BREAST TOMOSYNTHESIS BI SCREENING MAMMOGRAPHY BI 2-VIEW BREAST INC Zach Matos MD [address] [place] [address] [facility] [address] [place] [address] Referral ID Status Reason Start Date Expiration Date Visits Requested Visits Authorized [id number] Pending Review Auto-Generat ed Referral 09/13/2021 10/13/2022 1 1 [facility] Diagnostic Procedure Only (Routine) - Pending Review Specialty Diagnoses / Procedures Referred By Alba t Referred To Contact [facility] Diagnoses Encounter for screening mammogram for breast cancer Procedures GABO SCREENING W PRAVEENA SCREENING DIGITAL BREAST TOMOSYNTHESIS BI SCREENING MAMMOGRAPHY BI 2-VIEW BREAST INC Zach Matos MD [address] [place] [address] [facility] [address] [place] [address] Referral ID Status Reason Start Date Expiration Date Visits Requested Visits Authorized [id number] Pending Review Auto-Generat ed Referral 08/13/2022 09/12/2023 1 1 [facility] Summary Purpose Family History No Family History Records FoundNo Family History Records FoundNo Family History Records FoundNo Family History Records FoundNo Family History Records Found Advance Directives No Advanced Directives Records FoundDocuments on File Type Date 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 Advance Directive(s) 11/11/2019 11:24 AM me john Advance Directive(s) 11/01/2019 1:20 PM Advance Directive(s) 06/22/2015 9:11 AM Advance Directive(s) 06/13/2015 10:35 AM Documents on File Type Date 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 Advance Directive(s) 11/11/2019 11:24 AM me john Advance Directive(s) 11/01/2019 1:20 PM Advance Directive(s) 06/22/2015 9:11 AM Advance Directive(s) 06/13/2015 10:35 AM Chief Complaint HoarsenessHoarsenessHoarseness Reason for Referral Specialty Diagnoses / Procedures Referred By Alba christian Referred To Contact Physical Therapy Diagnoses Disequilibrium History of falling Procedures CONSULT TO PHYSICAL THERAPY Zach Garcia MD [address] [place] [address] Referral ID Status Reason Start Date Expiration Date Visits Requested Visits Authorized [id number] Ref Not Required PCP Requested Referral 09/24/2022 09/24/2023 1 1 Specialty Diagnoses / Procedures Referred By Alba christian Referred To Contact [facility] Diagnoses Encounter for screening mammogram for malignant neoplasm of breast Procedures GABO SCREENING W PRAVEENA SCREENING DIGITAL BREAST TOMOSYNTHESIS BI SCREENING MAMMOGRAPHY BI 2-VIEW BREAST INC CAD Zach Garcia MD [address] [place] [address] [facility] [address] [place] [address] Referral ID Status Reason Start Date Expiration Date Visits Requested Visits Authorized [id number] Pending Review Auto-Generat ed Referral 09/24/2022 10/24/2023 1 1 Additional Source Comments INFORMATION SOURCE (unrecogn ized section and content) DATE CREATED AUTHOR AUTHOR'S ORGANIZ ATION 07/11/2020 [facility] DATE CREATED AUTHOR AUTHOR'S ORGANIZ ATION 01/19/2021 [facility] DATE CREATED AUTHOR AUTHOR'S ORGANIZ ATION 07/20/2021 [facility] DATE CREATED AUTHOR AUTHOR'S ORGANIZ ATION 04/25/2023 [facility] Source Comments (unrecognize d section and content) In the event this informatio n is protected by the Federal Confidentiality of Alcohol and Drug Abuse Patient Records regulations: The Federal rules restrict any use of the information to criminally investigate or prosecute any alcohol or drug abuse patient.[facility] the event this information is protected by the Federal Confidentiality of Alcohol and Drug Abuse Patient Records regulations: The Federal rules restrict any use of the information to criminally investigate or prosecute any alcohol or drug abuse patient.[facility] the event this information is protected by the Federal Confidentiality of Alcohol and Drug Abuse Patient Records regulations: The Federal rules restrict any use of the information to criminally investigate or prosecute any alcohol or drug abuse patient.[facility] Center[facility] the event this information is protected by the Federal Confidentiality of Alcohol and Drug Abuse Patient Records regulations: The Federal rules restrict any use of the information to criminally investigate or prosecute any alcohol or drug abuse patient.[facility] Center[facility] the event this information is protected by the Federal Confidentiality of Alcohol and Drug Abuse Patient Records regulations: The Federal rules restrict any use of the information to criminally investigate or prosecute any alcohol or drug abuse patient.[facility] Center[facility] the event this information is protected by the Federal Confidentiality of Alcohol and Drug Abuse Patient Records regulations: The Federal rules restrict any use of the information to criminally investigate or prosecute any alcohol or drug abuse patient.[facility] Center[facility] the event this information is protected by the Federal Confidentiality of Alcohol and Drug Abuse Patient Records regulations: The Federal rules restrict any use of the information to criminally investigate or prosecute any alcohol or drug abuse patient.[facility] Center[facility] the event this information is protected by the Federal Confidentiality of Alcohol and Drug Abuse Patient Records regulations: The Federal rules restrict any use of the information to criminally investigate or prosecute any alcohol or drug abuse patient.[facility] Center[facility] the event this information is protected by the Federal Confidentiality of Alcohol and Drug Abuse Patient Records regulations: The Federal rules restrict any use of the information to criminally investigate or prosecute any alcohol or drug abuse patient.[facility] CenterIn the event this information is protected by the Federal Confidentiality of Alcohol and Drug Abuse Patient Records regulations: The Federal rules restrict any use of the information to criminally investigate or prosecute any alcohol or drug abuse patient.[facility] Center[facility] the event this information is protected by the Federal Confidentiality of Alcohol and Drug Abuse Patient Records regulations: The Federal rules restrict any use of the information to criminally investigate or prosecute any alcohol or drug abuse patient.[facility] CenterIn the event this information is protected by the Federal Confidentiality of Alcohol and Drug Abuse Patient Records regulations: The Federal rules restrict any use of the information to criminally investigate or prosecute any alcohol or drug abuse patient.[facility] CenterIn the event this information is protected by the Federal Confidentiality of Alcohol and Drug Abuse Patient Records regulations: The Federal rules restrict any use of the information to criminally investigate or prosecute any alcohol or drug abuse patient.[facility] Reason for Visit (unrecogniz ed [...] Care Teams (unrecognized sec tion and content) Seismology Technical Officer Relationship Specialty Start Date End Date Zach Garcia MD [address] [place] [address] PCP - General Internal Medicine 02/24/11 Seismology Technical Officer Relationship Specialty Start Date End Date Zach Garcia MD [address] [place] [address] PCP - General Internal Medicine 02/24/11 Seismology Technical Officer Relationship Specialty Start Date End Date Zach Garcia MD [address] [place] [address] PCP - General Internal Medicine 02/24/11 Seismology Technical Officer Relationship Specialty Start Date End Date Zach Garcia MD [facility] [place] [address] PCP - General Internal Medicine 02/24/11 Seismology Technical Officer Relationship Specialty Start Date End Date Zach Garcia MD [facility] [place] [address] PCP - General Internal Medicine 02/24/11 Seismology Technical Officer Relationship Specialty Start Date End Date Zach Garcia MD [facility] [place] [address] PCP - General Internal Medicine 02/24/11 Seismology Technical Officer Relationship Specialty Start Date End Date Zach Garcia MD [address] [place] [address] PCP - General Internal Medicine 02/24/11 Seismology Technical Officer Relationship Specialty Start Date End Date Zach Garcia MD [address] [place], [place] [address] PCP - General Internal Medicine 02/24/11 Seismology Technical Officer Relationship Specialty Start Date End Date Zach Garcia MD [address] [place] [address] PCP - General Internal Medicine 02/24/11 Seismology Technical Officer Relationship Specialty Start Date End Date Zach Garcia MD [address] [place] [address] PCP - General Internal Medicine 02/24/11 Seismology Technical Officer Relationship Specialty Start Date End Date Zach Garcia MD [address] [place], [place] [id number] PCP - General Internal Medicine 02/24/11 FOR [...] BE BASED ON THE PRIMARY CLINICAL RECORDS. [employer] [facility]. provides no warranty or guarantee of the accuracy or completeness of information in this document.
[2023-06-06 00:07] LABS: Calprotectin, Stool 53 ug/g (0-120)
== END | disposition home or self-care (01) ==
LOC: LABSPEC 07:17
PROVIDERS: PCP Internal Medicine; Referring Provider Internal Medicine Gastroenterology; Visit Provider Internal Medicine Gastroenterology
DX: K50.10 Crohn's disease of large intestine without complications (principal)
CPT/HCPCS: 83630; 83993

== ENCOUNTER → 2023-07-07 | Outpatient (CLI) | payer OTHER, SELFPAY | END | disposition home or self-care (01) | LOC: PSN 06:51 | PROVIDERS: PCP Internal Medicine; Referring Provider Nurse Practitioner Acute Care; Visit Provider Nurse Practitioner Acute Care | DX: R06.02 Shortness of breath (principal) | CPT/HCPCS: 94060; 94726; 94729 ==

== ENCOUNTER → 2023-07-10 | Outpatient (CLI) | payer OTHER, SELFPAY ==
[2023-07-10 12:46] VITALS: PULSE 100; PULSE 82; PULSE 86; PULSE 90; PULSE 97; PULSE 99; O2SAT 95; O2SAT 97; O2SAT 98; O2SAT 99
--- NOTE | 2023-07-15 07:51 | WT_ITS ---
PSN 6 Minute Walk Test 6 Minute Walk Test 6 Minute Walk Test: 6 Minute Walk Test PSN:6-Minute Walk Test Start: 07/10/23 12:46 Freq: Status: Active Protocol: [id number] Document 07/10/23 12:46 [facility] (Rec: 07/10/23 12:57 [facility] [id number]) 6 Minute Walk Test Date Performed 07/10/23 Time Performed 12:30 Height 5 ft 4 in Weight: 180 lb Weight in Pounds 180.[address]: BLANCA Assistive device used: None Pre-test Oxygen Delivery Method Room Air Pulse Ox 99 Pulse Rate (60-100) 82 Dyspnea Regi Scale (0-10) 1 1st minute Oxygen Delivery Method Room Air Pulse Ox 99 Pulse Rate (60-100) 90 Dyspnea Regi Scale (0-10) 1 Number of Rests Taken 0 2nd minute Oxygen Delivery Method Room Air Pulse Ox 98 Pulse Rate (60-100) 99 Dyspnea Regi Scale (0-10) 1 Number of Rests Taken 0 3rd minute Oxygen Delivery Method Room Air Pulse Ox 95 Pulse Rate (60-100) 99 Dyspnea Regi Scale (0-10) 2 Number of Rests Taken 0 4th minute Oxygen Delivery Method Room Air Pulse Ox 97 Pulse Rate (60-100) 97 Dyspnea Regi Scale (0-10) 2 Number of Rests Taken 0 5th minute Oxygen Delivery Method Room Air Pulse Ox 99 Pulse Rate (60-100) 100 Dyspnea Regi Scale (0-10) 3 Number of Rests Taken 0 Reported Symptoms Increased Work of Breathing 6th minute Oxygen Delivery Method Room Air Pulse Ox 99 Pulse Rate (60-100) 99 Dyspnea Regi Scale (0-10) 3 Number of Rests Taken 0 Reported Symptoms Increased Work of Breathing Post-test Oxygen Delivery Method Room Air Pulse Ox 99 Pulse Rate (60-100) 86 Dyspnea Regi Scale (0-10) 1 Full Laps Walked 13 Partial Lap, Number of Tiles Walked 22 Total Distance Walked (ft) 789 Interpretation Interpretation: The patient ambulated 789 feet over the course of 6 minutes beginning on room air without assistive devices. Pretesting oxygen saturation was noted to be 99% on room air. With ambulation, the kellee oxygen saturation was 95%. There was no significant exertional oxygen desaturation. Recommendations Recommendations: There is no indication for the use of supplemental oxygen at this time.
== END | disposition home or self-care (01) ==
LOC: PSN 12:17
PROVIDERS: PCP Internal Medicine; Referring Provider Nurse Practitioner Acute Care; Visit Provider Nurse Practitioner Acute Care
DX: R06.02 Shortness of breath (principal)
CPT/HCPCS: 94618

== ENCOUNTER → 2023-08-29 | Outpatient (CLI) | payer OTHER, SELFPAY ==
[2023-08-29 09:34] LABS: Hematocrit 44.6 % (37-47); Hemoglobin 13.8 g/dL (12.0-15.0); Mean Corp Hgb Conc 30.9 g/dL (32-36); Mean Corpuscular Hgb 24.9 pg (27.0-32.0); Mean Corpuscular Volume 80.5 fL (81-99); Mean Platelet Vol. 9.9 fl (6.2-12.0); Platelet Count 197 K/mm3 (150-450); RBC Distribution Width SD 43.9 fl (35.1-43.9); Red Blood Count 5.54 M/mm3 (4.2-5.4); White Blood Count 4.9 K/mm3 (4.4-11.0)
[2023-08-29 10:00] LABS: ALB/GLOB Ratio 0.9 RATIO (0.9-2.4); AST(SGOT) 26 U/L (15-37); Alanine Aminotransfer ALT/SGPT 45 U/L (13-56); Albumin, Serum 3.7 g/dL (3.2-5.0); Alkaline Phosphatase 93 U/L (45-117); Anion Gap 6 (5-15); BUN 15 mg/dL (7-18); BUN/Creat Ratio 25.3 RATIO (10-20); Calcium,Total 9.5 mg/dL (8.5-10.1); Chloride 103 mmol/L (98-107); Cholesterol 133 mg/dL (200); Creatinine, Serum 0.59 mg/dL (0.55-1.02); EST Glomerular Filtration Rate 109 mL/min (>60); Est Glom Filt Rate - Afr Amer 132 mL/min (>60); Globulin 4.3 g/dL (2.2-4.2); Glucose 156 mg/dL (74-106); Hemoglobin A1c 7.2 % (3.8-5.6); High Density Lipoprotein 46 mg/dL; Potassium 3.6 mmol/L (3.5-5.1); Sodium Level 137 mmol/L (136-145); Triglycerides 177 mg/dL; Very Low Density Lipoprotein 35 mg/dL (5-40)
== END | disposition home or self-care (01) ==
LOC: LAB 08:48
PROVIDERS: PCP Internal Medicine; Referring Provider Internal Medicine; Visit Provider Internal Medicine
DX: I10 Essential (primary) hypertension (principal); E11.40 Type 2 diabetes mellitus with diabetic neuropathy, unspecified
CPT/HCPCS: 36415; 80053; 80061; 83036; 85027

== ENCOUNTER → 2023-10-19 | Outpatient (CLI) | payer OTHER, SELFPAY ==
[2023-10-19 10:45] LABS: Microalbumin,Random Urine 42.5 mg/L (NO RANGE EST.); Microalbumin:Creatinine Ratio 61.9 mg/g CRE (<30 mg/g CRE)
== END | disposition home or self-care (01) ==
LOC: LAB 09:08
PROVIDERS: PCP Internal Medicine; Referring Provider Internal Medicine; Visit Provider Internal Medicine
DX: E11.40 Type 2 diabetes mellitus with diabetic neuropathy, unspecified (principal)
CPT/HCPCS: 82043; 82570

== ENCOUNTER → 2023-11-25 | Outpatient (CLI) | payer OTHER, SELFPAY ==
[2023-11-25 16:24] LABS: Absolute Lymphocyte Count 1.84 X10^3/uL (0.83-4.51); Absolute Neutrophil Count 4.3 X10^3/uL (2.0-7.7); Basophil# 0.06 X10^3/uL; Basophil% 0.9 % (0-1); Eosinophil# 0.13 X10^3/uL; Eosinophils% 1.9 % (0-5); Hematocrit 43.3 % (37-47); Hemoglobin 13.4 g/dL (12.0-15.0); Lymphocyte # 1.84 X10^3/ul (0.83-4.51); Mean Corp Hgb Conc 30.9 g/dL (32-36); Mean Corpuscular Hgb 24.8 pg (27.0-32.0); Mean Corpuscular Volume 80.2 fL (81-99); Mean Platelet Vol. 9.7 fl (6.2-12.0); Monocyte# 0.47 X10^3/uL; Monocyte% 6.9 % (0-10); NRBC Flagged by Analyzer 0 % (0-5); Neutrophil # 4.27 X10^3/uL (2.7-7.7); Neutrophil % 62.7 % (47-70); Platelet Count 215 K/mm3 (150-450); RBC Distribution Width CV 15.8 % (11.6-14.6); White Blood Count 6.8 K/mm3 (4.4-11.0)
[2023-11-25 16:49] LABS: Erythrocyte Sedimentation Rate 6 mm/hr (0-30)
[2023-11-25 17:04] LABS: CRP < 2.90 mg/L (0.0-3.0); Ferritin 38 ng/mL (8-252); Iron Binding Capacity,Total 393 ug/dL (250-450); LDH 212 U/L (84-246)
[2023-11-27 14:09] LABS: Anti-Mitochondrial AB <20.0 Units (0.0-20.0)
[2023-11-28 00:07] LABS: Albumin 3.8 g/dL (2.9-4.4); Alpha-1-Globulins 0.2 g/dL (0.0-0.4); Alpha-2-Globulins 0.9 g/dL (0.4-1.0); Anti-Smooth Muscle ABS 65 Units (0-19); Antithrombin 3 Function 97 % (75-135); Cytoplasmic Ab (C-ANCA) <1:20 titer (Neg:<1:20); Endomysial Antibody IgA Negative (Negative); Gamma Globulin 1.2 g/dL (0.4-1.8); Immunoglobulin A 439 mg/dL (87-352); Immunoglobulin G 1285 mg/dL (586-1602); Immunoglobulin M 96 mg/dL (26-217); PROEL- TOTAL PROTEIN 7.4 g/dL (6.0-8.5); Perinuclear Ab (P-ANCA) <1:20 titer (Neg:<1:20); t-Transglutaminase IgA <2 U/mL (0-3)
== END | disposition home or self-care (01) ==
PROVIDERS: PCP Internal Medicine; Referring Provider Internal Medicine Gastroenterology; Visit Provider Internal Medicine Gastroenterology
DX: K50.90 Crohn's disease, unspecified, without complications (principal)
CPT/HCPCS: 36415; 82728; 82784; 83516; 83550; 83615; 84165; 85025; 85300; 85652; 86140; 86255; 86256; 86334

== ENCOUNTER → 2023-12-02 | Outpatient (CLI) | payer OTHER, SELFPAY ==
[2023-12-04 01:07] LABS: Pancreatic Elastase, Fecal 489 (>200)
[2023-12-05 07:09] LABS: Calprotectin, Stool 84 ug/g (0-120)
== END | disposition home or self-care (01) ==
LOC: LABSPEC 08:44
PROVIDERS: PCP Internal Medicine; Referring Provider Internal Medicine Gastroenterology; Visit Provider Internal Medicine Gastroenterology
DX: K50.90 Crohn's disease, unspecified, without complications (principal)
CPT/HCPCS: 82274; 82653; 83630; 83993; 87493; 87506

== ENCOUNTER → 2024-01-22 | Outpatient (CLI) | payer OTHER, SELFPAY ==
--- NOTE | 2024-01-22 07:37 | US_ITS ---
STUDY: ABDOMINAL ULTRASOUND - RIGHT UPPER QUADRANT; ELASTOGRAPHY REASON FOR VISIT: Female, 63 years old. Fatty infiltration of the liver. TECHNIQUE: Ultrasound evaluation of the right upper quadrant was performed with real-time and static thorpe-scale imaging. Point quantification shear wave elastography was performed ([employer]). TECHNICAL QUALITY: Adequate. COMPARISON: None. FINDINGS: Liver: The liver is enlarged and measures 18.5 cm. There is increased echogenicity consistent with fatty infiltration. The bile ducts are within normal limits. There is hepatic color flow. The direction of portal flow is hepatopetal. There is a 1.7 cm x 1.7 cm x 1.5 cm hypoechoic density in the region of the caudate lobe of the liver. This may represent a focal area of the fatty sparing. Correlation with enhanced CT scan of the abdomen recommended. Median liver stiffness measured 5.8 kPa. Gallbladder: The patient is status post cholecystectomy. Common Bile Duct (C.B.D.): The common bile duct measures 8.6 mm. Pancreas: There is normal echogenicity of the visualized pancreas. There is no demonstrated pancreatic mass or cyst. Right Kidney: Normal size of the right kidney. The right kidney measures 10.9 cm x 5.5 cm x 5 cm. Normal renal cortex. The right cortex measures 1.2 cm. There is no demonstrated renal mass or cyst. There is no right hydronephrosis. US/ABD Limited w/ Elastography IMPRESSION: 1. Liver stiffness measures 5.8 kPa compatible with F2-F3 (Mild to moderate liver fibrosis) Metavir score. 2. Hepatomegaly and fatty insertion of the liver. 3. 1.7 cm x 1.7 cm x 1.5 cm well-defined hypoechoic density in the region of the caudate lobe of the liver. Correlation with an enhanced CT scan the abdomen is recommended. Electronically Signed: Calvin Flores MD at 10:10 EDT ,
--- OUTSIDE RECORDS SUMMARY | 2024-01-22 07:52 | XMS RPT_ITS | CCD ---
Author Organization [facility] Care Team Providers Care Surgery Assistant Name Role Phone MARTÍN BRONSON Unavailable Unavailable ZACH GARCIA Unavailable MARTÍN Funez Unavailable Unavailable ZACH GARCIA Unavailable Unavailable MARTÍN BRONSON Unavailable Unavailable ZACH GARCIA Unavailable Unavailable Zach Garcia Unavailable [phone] Unavailable Unavailable Zach Garcia MD Primary Care Provider [phone] Admitting Unavailable MARTÍN BRONSON DR Attending Unavailable MARTÍN BRONSON DR Primary Care Unavailable FLORENCE SMITH PAC Admitting Unavailable LUISEFREN PILLAIANNE PAC Attending Unavailable FLORENCE SMITH PAC Primary Care Unavailable ZACH GARCIA MD Consulting Unavailable PROVIDER, UNKNOWN Consulting Unavailable Zach Garcia MD Primary Care Provider [phone] Zach Garcia MD Primary Care Provider [phone] Zach Garcia MD Primary Care Provider [phone] ZACH GARCIA Primary Care Unavailable ZACH GARCIA Attending Unavailable CECILIA WASHINGTON Attending Unavailable ZACH GARCIA Primary Care Unavailable ZACH GARCIA Attending Unavailable ZACH GARCIA Primary Care Unavailable Allergies Allergy Classification Reported Allergen(s) Allergy Type Date of Onset Reaction(s) Facility (5 sources) Sulfamethoxazole ; Translations: [sulfa] [facility] Work Phone: (20 sources) cefdinir; Translations: [CEFDINIR] Drug Allergy 06-23-2006 Rash [facility] Work Phone: (20 sources) Doxycycline; Translations: [DOXYCYCLINE MONOHYDRATE] Drug Allergy 01-15-2011 Hives, Swelling, Anaphylaxis [facility] Work Phone: (20 sources) Etodolac; Translations: [ETODOLAC] Drug Allergy 01-07-2011 Rash, Swelling, Itching [facility] Work Phone: (20 sources) sulfaSALAzine; Translations: [SULFASALAZINE] Drug Allergy 09-19-2011 Rash [facility] Work Phone: (20 sources) Sulfa Dyne; Translations: [SULFA DYNE] Drug Allergy 09-19-2011 Rash [facility] Work Phone: Medications Current Medications Medication Drug Class(es) Dates Sig (Normalized) Sig (Original) [id number] 200 actuat albuterol 0.09 mg/actuat metered dose inhaler (20 sources) beta2-Adrenergic Agonist Start: 09-09-2019 take 2 puff(s) by inhalation every four hours as needed for wheezing albuterol HFA (PROVENTIL HFA, VENTOLIN HFA) 90 mcg/actuation inhaler Indications: Pneumonia due to infectious organism, unspecified laterality, unspecified part of lung , Persistent cough Inhale 2 Puffs as instructed every 4 hours as needed for Wheezing/Shortness of Breath. 1 Inhaler 1 09/09/2019 Active Comment on above: Inhale 2 Puffs as in structed every 4 hours as needed for Wheezing/Shortness of Breath. amitriptyline hydrochloride 75 mg oral tablet (20 sources) Tricyclic Antidepressant Start: 01-07-2024 take 1 tablet by mouth once daily at bedtime amitriptyline (ELAVIL) 75 mg tablet Indications: Fibromyalgia Take 1 tablet by mouth daily at bedtime. 90 tablet 1 01/07/2024 Active Start: 04-23-2023 End: 10-12-2023 take 1 tablet by mouth once daily at bedtime amitriptyline (ELAVIL) 75 mg tablet Indications: Fibromyalgia Take 1 tablet by mouth daily at bedtime. 90 tablet 1 04/23/2023 10/12/2023 Discontinued Start: 09-24-2022 take 1 tablet by june th once daily at bedtime amitriptyline (ELAVIL) 75 mg tablet Indications: Fibromyalgia Take 1 tablet by mouth daily at bedtime. 90 tablet 1 09/24/2022 Active Start: 08-13-2022 End: 09-24-2022 take 1 tablet by mouth once daily at bedtime Amitriptyline HCl 150 mg tablet Indications: Fibromyalgia Take 1 tablet by mouth daily at bedtime. 90 tablet 1 08/13/2022 09/24/2022 Discontinued (Dosage adjustment) Start: 09-13-2021 take 1 tablet by june th once daily at bedtime Amitriptyline HCl 150 mg tablet Indications: Fibromyalgia Take 1 tablet by mouth daily at bedtime. 90 tablet 1 09/13/2021 Active Start: 09-16-2019 End: 09-13-2021 take 1 tablet by mouth once daily in the evening amitriptyline (ELAVIL) 100 mg tablet Take 1 tablet by mouth every evening. 90 tablet 3 09/18/2020 09/13/2021 Discontinued (Dosage adjustment) Comment on above: Take 1 tablet by june th every evening. Take 1 tablet by june th daily at bedtime. atorvastatin 10 mg oral tablet (20 sources) HMG-CoA Reductase Inhibitor Start: 01-03-20 End: 01-07-20 take 1 tablet by mouth once daily at bedtime for hyperlipidemia atorvastatin (LIPITOR) 10 mg tablet Indications: Type 2 diabetes mellitus with diabetic neuropathy, without long-term current use of insulin ([facility]) Take 1 tablet by mouth daily at bedtime. For cholesterol. 90 tablet 3 01/07/2024 Active Start: 01-31-2022 End: 12-30-2022 take 1 tablet by mouth once daily at bedtime for hyperlipidemia atorvastatin (LIPITOR) 10 mg tablet Indications: Type 2 diabetes mellitus with diabetic neuropathy, without long-term current use of insulin (HCC) Take 1 tablet by mouth daily at bedtime. For cholesterol. 90 tablet 3 01/31/2022 12/30/2022 Discontinued Start: 09-06-2020 End: 01-29-2022 take 1 tablet by mouth once daily at bedtime for hyperlipidemia atorvastatin (LIPITOR) 10 mg tablet Indications: Type 2 diabetes mellitus with diabetic neuropathy, without long-term current use of insulin ([facility]) Take 1 tablet by mouth daily at bedtime. For cholesterol. 90 tablet 3 09/13/2021 01/29/2022 Discontinued Start: 03-09-2020 Atorvastatin C alcium 10 MG Oral Tablet Quantity: 90 Refills: 0 Ordered: 09-Mar-2020 DO Start : 09-Mar-2020 Active Comment on above: Take 1 tablet by june th daily at bedtime. For cholesterol. 0.5 ml dulaglutide 1.5 mg/ml auto-injector (4 sources) GLP-1 Receptor Agonist Start: inject 0.75 mg by subcutaneous injection every week dulaglutide (TRULICITY) 0.75 mg/0.5 mL pen injector Indications: Type 2 diabetes mellitus with diabetic neuropathy, without long-term current use of insulin ([facility]) Inject 0.75 mg subcutaneously one time a week. Inject dose once per week. Discard Pen After 2 mL 2 10/12/2023 Active empagliflozin 25 mg oral tablet (20 sources) Sodium-Glucose Cotransporter 2 Inhibitor Start: End: take 1 tablet by mouth once daily, then take 1 tablet by mouth once daily in the morning empagliflozin (JARDIANCE) 25 mg tablet Indications: Type 2 diabetes mellitus with diabetic neuropathy, without long-term current use of insulin ([facility]) Take 1 tablet by mouth once daily. Take 1 tablet once daily in the morning 90 tablet 3 09/02/2023 Active Start: 05-03-2021 End: 09-13-2021 take 1 tablet by mouth once daily, then take 1 tablet by mouth once daily in the morning empagliflozin (JARDIANCE) 25 mg tablet Indications: Type 2 diabetes mellitus with diabetic neuropathy, without long-term current use of insulin (HCC) Take 1 tablet by mouth once daily. Take 1 tablet once daily in the morning 30 tablet 5 09/13/2021 Active Comment on above: Take 1 tablet by june th once daily. Take 1 tablet once daily in the morning fluticasone propionate 0.05 mg/actuat metered dose nasal spray (20 sources) Corticosteroid Start: 9 take 1 spray(s) nasal route once daily fluticasone (FLONASE) 50 mcg/actuation nasal spray Indications: Rhinitis, unspecified type Use 1 Mcgregor in each nostril once daily. 1 Bottle 1 03/02/2019 Active Comment on above: Use 1 Mcgregor in each nostril once daily. 30 actuat fluticasone furoate 0.2 mg/actuat / vilanterol 0.025 mg/actuat dry powder inhaler (20 sources) Corticosteroid, beta2-Adrenergic Agonist Start: 0 fluticasone-vilante rol (BREO ELLIPTA) 200-25 mcg/dose inhaler Indications: Chronic cough Inhale 1 Inhalation as instructed once daily. 01/18/2020 Active Start: 01-18-2020 take 1 puff(s) by [facility] once daily Breo Ellipta 200-25 MCG/INH Inhalation Aerosol Powder Breath Activated INHALE 1 (ONE) puff BY MOUTH EVERY DAY. after inhalation, rinse mouth with water and spit out, do not swallow. Quantity: 60 Refills: 0 Ordered: 20-Mar-2020 DO Start : 18-Jan-2020 Active Comment on above: Inhale 1 Inhalation as instructed once daily. folic acid 1 mg oral tablet (20 sources) Start: 08-13-2022 End: 10-06-2023 take 2 tablets by mouth once daily folic acid 1 mg tablet Indications: Anemia, unspecified type Take 2 tablets by mouth once daily. 180 tablet 3 10/06/2023 Active Start: 03-12-2021 End: 03-24-2022 take 2 tablets by mouth once daily folic acid 1 mg tablet Take 2 tablets by mouth once daily. 180 tablet 0 03/24/2022 Active Start: 02-15-2020 Folic Acid 1 M G Oral Tablet Quantity: 180 Refills: 0 Ordered: 15-Feb-2020 DO Start : 15-Feb-2020 Active Comment on above: Take [address] [facility] once daily. glipiZIDE er 10 mg 24 hr extended release oral tablet (20 sources) Sulfonylurea Start: 08-13-2022 End: 10-06-2023 take 1 tablet by mouth once daily glipiZIDE (GLUCOTROL XL) 10mg 24 hr tablet Indications: Type 2 diabetes mellitus with diabetic neuropathy, without long-term current use of insulin (HCC) Take 1 tablet by mouth once daily. 90 tablet 3 10/06/2023 Active Start: 09-13-2021 take 1 tablet by june once daily glipiZIDE (GLUCOTROL XL) 10mg 24 hr tablet Indications: Type 2 diabetes mellitus with diabetic neuropathy, without long-term current use of insulin (HCC) Take 1 tablet by mouth once daily. 90 tablet 3 09/13/2021 Active Start: 04-15-2021 End: 09-13-2021 take 1 tablet by mouth once daily in the morning glipiZIDE (GLUCOTROL XL) 5 mg 24 hr tablet Indications: Type 2 diabetes mellitus with diabetic neuropathy, without long-term current use of insulin (HCC) Take 1 tablet by mouth every morning. Take with meal. 90 tablet 3 04/15/2021 09/13/2021 Discontinued (Dosage adjustment) Comment on above: Take 1 tablet by june th every morning. Take with meal. Take 1 tablet by june th once daily. lisinopril 5 mg oral tablet (9 sources) Angiotensin Converting Enzyme Inhibitor Start: 01-08-20 take 1 tablet by mouth once daily lisinopril (ZESTRIL) 5 mg tablet Indications: Essential hypertension Take 1 tablet by mouth once daily. Dose reduced. 90 tablet 3 01/07/2023 Active Comment on above: Take 1 tablet by june th once daily. Dose reduced. meloxicam 15 mg oral tablet (1 source) Nonsteroidal Anti-inflammatory Drug Start: 08-14-19 End: 08-29-19 take 1 tablet by mouth once daily at mealtime meloxicam (MOBIC) 15 mg tablet Indications: Multiple contusions Take 1 tablet by mouth once daily for 15 days. With food. 15 tablet 0 08/13/2022 08/28/2022 Active Comment on above: Take 1 tablet by june th once daily for 15 days. With food. montelukast 10 mg oral tablet (20 sources) Leukotriene Receptor Antagonist Start: 01-03-20 End: 01-07-20 take 1 tablet by mouth once daily at bedtime montelukast (SINGULAIR) 10 mg tablet Take 1 tablet by mouth daily at bedtime. 90 tablet 3 01/07/2024 Active Start: 09-18-2020 End: 12-30-2022 take 1 tablet by mouth once daily at bedtime montelukast (SINGULAIR) 10 mg tablet Take 1 tablet by mouth daily at bedtime. 90 tablet 3 12/13/2021 12/30/2022 Discontinued Comment on above: Take 10 mg by mouth daily at bedtime. Take 1 tablet by june th daily at bedtime. multivitamin tablet (20 sources) Start: 11-29-20 13 take 1 tablet by mouth once daily multivitamin tablet Take 1 tablet by mouth once daily. 0 03/04/2013 Active Comment on above: Take 1 tablet by june once daily. nystatin [id number] unt/ml oral suspension (9 sources) Polyene Antifungal Start: 04-23-19 nystatin (MYCOSTATIN) 100,000 unit/mL suspension Indications: Thrush Take 5 mL by mouth four times daily for 7 days. Swish several minutes, then swallow. Repeat as needed. 473 mL 1 04/23/2023 Active Comment on above: Take 5 mL by mouth f our times daily for 7 days. Swish several minutes, then swallow. Repeat as needed. omeprazole 40 mg delayed release oral capsule (20 sources) Proton Pump Inhibitor Start: 01-03-20 End: 01-07-20 take 1 capsule by mouth once daily omeprazole (PRILOSEC) 40 mg capsule Indications: Gastroesophageal reflux disease, unspecified whether esophagitis present Take 1 capsule by mouth once daily. 90 capsule 3 01/07/2024 Active Start: 09-06-2021 End: 12-30-2022 take 1 capsule by mouth once daily omeprazole (PRILOSEC) 40 mg capsule Indications: Gastroesophageal reflux disease, unspecified whether esophagitis present Take 1 capsule by mouth once daily. 90 capsule 3 12/13/2021 12/30/2022 Discontinued Start: 03-11-2021 End: 07-08-2021 take 1 capsule by mouth once daily omeprazole (PRILOSEC) 40 mg capsule Indications: Gastroesophageal reflux disease, unspecified whether esophagitis present Take 1 capsule by mouth once daily. 30 capsule 0 06/04/2021 07/08/2021 Discontinued Start: 04-05-2020 Omeprazole 40 MG Oral Capsule Delayed Release Quantity: 90 Refills: 0 Ordered: 05-Apr-2020 DO Start : 05-Apr-2020 Active Comment on above: Take 1 capsule by mo [facility] once daily. potassium chloride 8 meq extended release oral capsule (20 sources) Start: 01-02-2023 End: 01-07-2024 take 1 capsule by mouth once daily at breakfast potassium chloride SR (MICRO-K) 8 mEq cpER Indications: Essential hypertension Take 1 capsule by mouth daily with breakfast. 90 capsule 3 01/07/2024 Active Start: 12-06-2021 End: 12-30-2022 take 1 capsule by mouth once daily at breakfast potassium chloride SR (MICRO-K) 8 mEq cpER Indications: Essential hypertension Take 1 capsule by mouth daily with breakfast. 90 capsule 3 12/06/2021 12/30/2022 Discontinued Start: 05-20-2021 End: 07-08-2021 take 1 capsule by mouth once daily at breakfast potassium chloride SR (MICRO-K) 8 mEq cpER Indications: Essential hypertension Take 1 capsule by mouth daily with breakfast. 90 capsule 3 05/20/2021 Active Start: 04-05-2020 Potassium Chlo ride ER 8 MEQ Oral Capsule Extended Release Quantity: 90 Refills: 0 Ordered: 05-Apr-2020 DO Start : 05-Apr-2020 Active Comment on above: Take 1 capsule by mo [facility] daily with breakfast. Completed/Discontinued Medications Medication Drug Class(es) Dates Sig (Normalized) Sig (Original) Blood-Glucose Meter (ONETOUCH ULTRA2) monitoring kit (16 sources) Start: 09-02-2016 End: 09-02-2023 Blood-Glucose Meter (ONETOUCH ULTRA2) monitoring kit Use as directed to test blood sugar 1 Each 0 09/02/2016 09/02/2023 Discontinued Start: 09-02-2016 Blood-Glucose Meter (ONETOUCH ULTRA2) monitoring kit Use as directed to test blood sugar 1 Each 0 09/02/2016 Active Comment on above: Use as directed to t est blood sugar ergocalciferol 1.25 mg oral capsule (5 sources) Provitamin D2 Compound Start: 2020 take 1 capsule by mouth every week Vitamin D (Ergocalciferol) 1.25 MG (76472 UT) Oral Capsule One capsule by mouth weekly for 8 weeks Quantity: 8 Refills: 0 Ordered: 19-Jul-2020 DO Start : 19-Jul-2020 Active fluconazole 150 mg oral tablet (1 source) Azole Antifungal Start: 2021 End: 2021 take 1 tablet by mouth once daily fluconazole (DIFLUCAN) 150 mg tablet Take 1 tablet by mouth once daily for 1 day. 1 tablet 0 11/27/2021 11/28/2021 Comment on above: Take 1 tablet by june once daily for 1 day. hydroCHLOROthiazide 12.5 mg oral capsule (20 sources) Thiazide Diuretic Start: 2021 End: 2022 take 1 capsule by mouth once daily hydroCHLOROthiazide 12.5 mg capsule Indications: Essential hypertension Take 1 capsule by mouth once daily. 90 capsule 3 12/23/2022 Active Start: 03-16-2020 hydroCHLOROthi azide 12.5 MG Oral Capsule Quantity: 90 Refills: 0 Ordered: 16-Mar-2020 DO Start : 16-Mar-2020 Active Comment on above: Take [address] [facility] once daily. hydrocortisone 10 mg/ml / neomycin 3.5 mg/ml / polymyxin b 21095 unt/ml otic suspension (5 sources) Aminoglycoside Antibacterial, Polymyxin-class Antibacterial, Corticosteroid Start: 01-22-20 20 Neomycin-Polymyxin- HC 3.5-73028-2 Otic Suspension Quantity: 10 Refills: 0 Ordered: 22-Jan-2020 DO Start : 22-Jan-2020 Active hyoscyamine sulfate 0.125 mg sublingual tablet (4 sources) End: 10-12-19 24 take 0.125 mg under the tongue every four hours as needed hyoscyamine sublingual (LEVSIN SL) 0.125 mg Dissolve 0.125 mg under the tongue every 4 hours as needed (2-4 times as needed). 0 10/12/2023 Discontinued 24 hr metFORMIN hydrochloride 500 mg extended release oral tablet (5 sources) Biguanide Start: 01-30-20 20 take 1 tablet by mouth every twenty-four hours metFORMIN HCl ER 500 MG Oral Tablet Extended Release 24 Hour Quantity: 90 Refills: 0 Ordered: 30-Jan-2020 DO Start : 30-Jan-2020 Active polyethylene glycol 3350 41093 mg powder for oral solution (5 sources) Osmotic Laxative Start: 12-29-19 21 Polyethylene Glycol 3350 17 GM/SCOOP Oral Powder Quantity: 238 Refills: 0 Ordered: 28-Dec-2020 DO Start : 28-Dec-2020 Active pravastatin sodium 20 mg oral tablet (5 sources) HMG-CoA Reductase Inhibitor Start: 01-13-20 20 take 1 tablet by mouth once daily Pravastatin Sodium 20 MG Oral Tablet TAKE 1 TABLET BY MOUTH EVERY DAY Quantity: 90 Refills: 0 Ordered: 13-Jan-2020 DO Start : 13-Jan-2020 Active 1 ml ustekinumab 90 mg/ml prefilled syringe (20 sources) Interleukin-12 Antagonist, Interleukin-23 Antagonist Start: 03-19-20 20 Stelara 90 MG/ML Subcutaneous Solution Prefilled Syringe Quantity: 1 Refills: 0 Ordered: 19-Mar-2020 DO Start : 19-Mar-2020 Active Start: 11-07-2019 ustekinumab (S TELARA) 130 mg/26 mL injection 11/07/2019 Active Problems Active Problems Problem Classification Problem Date Documented Date Episodic/Chronic Asthma (20 sources) Uncomplicated moderate persistent asthma; Translations: [Moderate persistent asthma, uncomplicated] Onset: 09-18-2020 03-11-2021 Chronic Conditions associated with dizziness or vertigo (1 source) Loss of equilibrium; Translations: [Dizziness and giddiness] Episodic Diabetes mellitus with complications (20 sources) Type 2 diabetes mellitus; Translations: [Type 2 diabetes mellitus with diabetic neuropathy, unspecified] Onset: 02-27-2016 02-27-2016 Chronic Disorders of lipid metabolism (2 sources) Hyperlipidemia; Translations: [Hyperlipidemia, unspecified] Onset: 09-02-2023 09-02-2023 Chronic Esophageal disorders (20 sources) Gastroesophageal reflux disease; Translations: [Gastro-esophageal reflux disease without esophagitis] Onset: 05-26-2008 11-20-2009 Chronic Essential hypertension (20 sources) Essential hypertension; Translations: [Essential (primary) hypertension] Onset: 05-26-2008 02-04-2016 Chronic Immunizations and screening for infectious disease (1 source) Vaccination needed; Translations: [Encounter for immunization] Episodic Mood disorders (20 sources) Depressive disorder; Translations: [Depressive disorder] Onset: 02-04-2016 02-04-2016 Chronic Nutritional deficiencies (20 sources) Vitamin D deficiency; Translations: [Vitamin D deficiency, unspecified] Onset: 03-13-2017 03-13-2017 Chronic Osteoarthritis (20 sources) Osteoarthritis of right knee joint; Translations: [Unilateral primary osteoarthritis, right knee] Onset: 01-30-2015 01-30-2015 Chronic Other connective tissue disease (20 sources) Fibromyalgia; Translations: [Fibromyalgia] Onset: 02-04-2016 02-04-2016 Episodic Other ear and sense organ disorders (5 sources) Hearing loss; Translations: [Unspecified hearing loss] Chronic Other injuries and conditions due to external causes (1 source) History of fall; Translations: [History of falling] Episodic Other nutritional; endocrine; and metabolic disorders (8 sources) Body mass index 30+ - obesity; Translations: [Body Mass Index 32.0-32.9, adult] Onset: 05-26-2008 10-12-2023 Chronic Other screening for suspected conditions (not [...] cords] Episodic Regional enteritis and ulcerative colitis (20 sources) Crohn's disease of colon; Translations: [Crohn's disease of large intestine without complications] Onset: 07-04-2011 Resolved: 02-23-2017 05-03-2021 Chronic Rheumatoid arthritis and related disease (20 sources) Inflammatory polyarthropathy; Translations: [Inflammatory polyarthropathy] Onset: 05-28-2011 05-28-2011 Chronic Past or Other Problems Problem Classification Problem Date Documented Da te Episodic/Chronic Cardiac dysrhythmias (8 sources) Palpitations; Translations: [Palpitations] Onset: 11-20-2009 Resolved: 07-19-2014 07-19-2014 Episodic Deficiency and other anemia (20 sources) Anemia; Translations: [Anemia, unspecified] Onset: 08-10-2019 08-10-2019 Episodic Diabetes mellitus without complication (8 sources) Diabetes mellitus; Translations: [Type 2 diabetes mellitus without complications] Onset: 11-20-2009 Resolved: 02-23-2017 02-23-2017 Chronic Mycoses (8 sources) Tinea pedis; Translations: [Tinea pedis] Onset: 05-26-2008 Resolved: 02-25-2011 02-25-2011 Episodic Nausea and vomiting (8 sources) Nausea; Translations: [Nausea] Onset: 06-30-2014 Resolved: 06-30-2014 Episodic Nonspecific chest pain (8 sources) Chest pain; Translations: [Chest pain, unspecified] Onset: 11-20-2009 Resolved: 02-25-2011 02-25-2011 Episodic Other connective tissue disease (8 sources) Calcaneal spur; Translations: [Calcaneal spur, unspecified foot] Onset: 12-15-2011 Resolved: 02-23-2017 02-23-2017 Episodic Other connective tissue disease (1 source) Fibromyalgia; Translations: [Fibromyalgia] Onset: 02-04-2016 Episodic Other gastrointestinal disorders (8 sources) Heartburn; Translations: [Heartburn] Resolved: 02-24-2011 02-24-2011 Episodic Other gastrointestinal disorders (8 sources) Diarrhea; Translations: [Diarrhea, unspecified] Onset: 06-30-2014 Resolved: 06-30-2014 Episodic Other lower respiratory disease (8 sources) Chronic cough; Translations: [Chronic cough] Onset: 03-08-2020 Resolved: 05-03-2021 05-03-2021 Episodic Other nutritional; endocrine; and metabolic disorders (4 sources) Obesity; Translations: [Obesity, unspecified] Onset: 05-26-2008 Resolved: 07-19-2014 07-19-2014 Chronic Other nutritional; endocrine; and metabolic disorders (8 sources) Metabolic syndrome X; Translations: [Dysmetabolic syndrome X] Onset: 07-07-2008 Resolved: 11-20-2009 11-20-2009 Chronic Phlebitis; thrombophlebitis and thromboembolism (8 sources) Acute deep venous thrombosis of tibial vein of left leg; Translations: [Acute embolism and thrombosis of left tibial vein] Onset: 08-10-2019 Resolved: 03-08-2020 03-08-2020 Episodic Spondylosis; intervertebral disc disorders; other back problems (16 sources) Neck pain; Translations: [Cervicalgia] Onset: 01-20-2006 Resolved: 02-23-2017 02-24-2011 Episodic Unclassified (8 sources) Reflux; Translations: [Reflux] Resolved: 11-20-2009 11-20-2009 Viral infection (8 sources) Disease caused by 2019-nCoV; Translations: [COVID-19] Onset: 04-27-2020 Resolved: 09-06-2020 09-06-2020 Episodic Results Test Name Value Interpretation Reference Range Facility [facility] 01-07-2024 JENNIFER Telephone (INTMWS) SHANE RODRIGUEZ ([id number]) 1960 F Date Time Provider Department 01/07/24 ZACH GARCIA INTMWS During your visit today, we recorded the following information about you: Shane Bruno 01/07/2024 9:53 AM Signed Patient requesting medication that is : Patient last seen 10-12-23 Future appointment scheduled: yes PHARMACY: [facility] Carlos Vera MA 01/07/2024 11:26 AM Signed TC to pt. Med marked d/c at last OV 10/11. Patient states that this was never discontinued and has been taking this. Please review and sent to [facility] Zach Garcia MD 01/07/2024 11:10 PM Signed The following approved medication requests have been transmitted electronically. Requested Prescriptions Signed Prescriptions Disp Refills amitriptyline (ELAVIL) 75 mg tablet 90 tablet 1 Sig: Take 1 tablet by mouth daily at bedtime. Authorizing Provider: ZACH GARCIA MD Allergies As of Date: 01/07/2024 Noted Allergy Reaction DOXYCYCLINE MONOHYDRATE 01/15/2011 4 - Hives 7 - Swelling 10 - Anaphylaxis ETODOLAC 01/07/2011 2 - Rash 7 - Swelling 9 - Itching ASULFAZINE (SULFASALAZINE) 09/19/2011 2 - Rash CEFDINIR 06/23/2006 2 - Rash SULFA DYNE 09/19/2011 2 - Rash Date Reviewed: 10/12/2023 Reviewed by: Deneen Reeder LPN - Fully Assessed Reason for Visit: requesting medication that is [Other] Visit Diagnosis:Fibromyalgia [M79.7] Order(s):amitriptyline (ELAVIL) 75 mg tabletTake 1 tablet by mouth daily at bedtime.Disp: 90 tabletRfl: 1 Prescriptions as of 01/07/2024 - amitriptyline (ELAVIL) 75 mg tablet Take 1 tablet by mouth daily at bedtime. - dulaglutide (TRULICITY) 0.75 mg/0.5 mL pen injector Inject 0.75 mg subcutaneously one time a week. Inject dose once per week. Discard Pen After - Lancets Test blood sugar(s) 1 times daily. Dx: Type 2 DM - Controlled E11.40 Insulin: No - glipiZIDE (GLUCOTROL XL) 10mg 24 hr tablet Take 1 tablet by mouth once daily. - folic acid 1 mg tablet Take 2 tablets by mouth once daily. - empagliflozin (JARDIANCE) 25 mg tablet Take 1 tablet by mouth once daily. Take 1 tablet once daily in the morning - nystatin (MYCOSTATIN) 100,000 unit/mL suspension Take 5 mL by mouth four times daily for 7 days. Swish several minutes, then swallow. Repeat as needed. - lisinopril (ZESTRIL) 5 mg tablet Take 1 tablet by mouth once daily. Dose reduced. - montelukast (SINGULAIR) 10 mg tablet Take 1 tablet by mouth daily at bedtime. - atorvastatin (LIPITOR) 10 mg tablet Take 1 tablet by mouth daily at bedtime. For cholesterol. - omeprazole (PRILOSEC) 40 mg capsule Take 1 capsule by mouth once daily. - potassium chloride SR (MICRO-K) 8 mEq cpER Take 1 capsule by mouth daily with breakfast. - fluticasone-vilanterol (BREO ELLIPTA) 200-25 mcg/dose inhaler Inhale 1 Inhalation as instructed once daily. - ustekinumab (STELARA) 130 mg/26 mL injection - albuterol HFA (PROVENTIL HFA, VENTOLIN HFA) 90 mcg/actuation inhaler Inhale 2 Puffs as instructed every 4 hours as needed for Wheezing/Shortness of Breath. - fluticasone (FLONASE) 50 mcg/actuation nasal spray Use 1 Mcgregor in each nostril once daily. - multivitamin tablet Take 1 tablet by mouth once daily. Problem List As Of Date 01/07/2024 Noted Resolved Cervicalgia [M54.2] 01/20/2006 02/24/2011 Routine General Medical Examination at [facility]*05/26/2008 10/31/2011 Dermatophytosis of foot [B35.3] 05/26/2008 02/25/2011 Obesity (BMI 30-39.9) [E66.9] 05/26/2008 Essential hypertension [I10] 05/26/2008 Esophageal Reflux [K21.9] 05/26/2008 Dysmetabolic Syndrome X [E88.810] 07/07/2008 11/20/2009 Reflux [CCD8033] 11/20/2009 Heartburn [R12] 02/24/2011 Diabetes mellitus (HCC) [...] [U07.1] 04/27/2020 09/06/2020 Moderate persistent asthma without complication* Prescriptions ordered this encounter Disp Refills Start End AMITRIPTYLINE 75 MG TABLET 90 t* 1 01/07/2024 Route: ORAL Sig: Take 1 tablet by mouth daily at b (more content not included)... Normal [facility] SHANE RODRIGUEZ ([id number]) 1960 F Date Time Provider Department 10/19/23 ZACH GARCIA INTHarvinderWS During your visit today, we recorded the following information about you: Sammy SoTABATHA 10/19/2023 1:19 PM Signed Pt completed urine View External Labs - urine microalb;cre [ID [id number]] Zach Garcia MD 10/21/2023 9:50 AM Signed Mild elevation of microalbuminuria. Recheck in 6 months. Cecelia Webb LPN 10/21/2023 9:54 AM Signed Phoned patient left message to return call and ask to speak to a nurse. Neil Griffin RN 10/21/2023 5:54 PM Signed Spoke with patient. Given message from provider's office. Patient verbalizes understanding. Neil Griffin RN Allergies As of Date: 10/19/2023 Noted Allergy Reaction DOXYCYCLINE MONOHYDRATE 01/15/2011 4 - Hives 7 - Swelling 10 - Anaphylaxis ETODOLAC 01/07/2011 2 - Rash 7 - Swelling 9 - Itching ASULFAZINE (SULFASALAZINE) 09/19/2011 2 - Rash CEFDINIR 06/23/2006 2 - Rash SULFA DYNE 09/19/2011 2 - Rash Date Reviewed: 10/12/2023 Reviewed by: Deneen Reeder LPN - Fully Assessed Reason for Visit: Results [95] Prescriptions as of 10/21/2023 - dulaglutide (TRULICITY) 0.75 mg/0.5 mL pen injector Inject 0.75 mg subcutaneously one time a week. Inject dose once per week. Discard Pen After - Lancets Test blood sugar(s) 1 times daily. Dx: Type 2 DM - Controlled E11.40 Insulin: No - glipiZIDE (GLUCOTROL XL) 10mg 24 hr tablet Take 1 tablet by mouth once daily. - folic acid 1 mg tablet Take 2 tablets by mouth once daily. - empagliflozin (JARDIANCE) 25 mg tablet Take 1 tablet by mouth once daily. Take 1 tablet once daily in the morning - nystatin (MYCOSTATIN) 100,000 unit/mL suspension Take 5 mL by mouth four times daily for 7 days. Swish several minutes, then swallow. Repeat as needed. - lisinopril (ZESTRIL) 5 mg tablet Take 1 tablet by mouth once daily. Dose reduced. - montelukast (SINGULAIR) 10 mg tablet Take 1 tablet by mouth daily at bedtime. - atorvastatin (LIPITOR) 10 mg tablet Take 1 tablet by mouth daily at bedtime. For cholesterol. - omeprazole (PRILOSEC) 40 mg capsule Take 1 capsule by mouth once daily. - potassium chloride SR (MICRO-K) 8 mEq cpER Take 1 capsule by mouth daily with breakfast. - fluticasone-vilanterol (BREO ELLIPTA) 200-25 mcg/dose inhaler Inhale 1 Inhalation as instructed once daily. - ustekinumab (STELARA) 130 mg/26 mL injection - albuterol HFA (PROVENTIL HFA, VENTOLIN HFA) 90 mcg/actuation inhaler Inhale 2 Puffs as instructed every 4 hours as needed for Wheezing/Shortness of Breath. - fluticasone (FLONASE) 50 mcg/actuation nasal spray Use 1 Mcgregor in each nostril once daily. - multivitamin tablet Take 1 tablet by mouth once daily. Problem List As Of Date 10/19/2023 Noted Resolved Cervicalgia [M54.2] 01/20/2006 02/24/2011 Routine General Medical Examination at [facility]*05/26/2008 10/31/2011 Dermatophytosis of foot [B35.3] 05/26/2008 02/25/2011 Obesity (BMI 30-39.9) [E66.9] 05/26/2008 Essential hypertension [I10] 05/26/2008 Esophageal Reflux [K21.9] 05/26/2008 Dysmetabolic Syndrome X [E88.810] 07/07/2008 11/20/2009 Reflux [EYK5627] 11/20/2009 Heartburn [R12] 02/24/2011 Diabetes mellitus (HCC) [...] [U07.1] 04/27/2020 09/06/2020 Moderate persistent asthma without complication* Encounter Status:Closed by NEIL GRIFFIN on 10/21/23 [facility] CNOVfrancis 10-12-2023 CNOV Office Visit (INTMWS ) SHANE RODRIGUEZ ([id number]) 1960 F Date Time Provider Department 10/12/23 4:40 PM ZACH GARCIA INTMWS During your visit today, we recorded the following information about you: Temperature Pulse Respiration Blood pressure 98.8 degrees 84/minute 16/minute 128/64 Weight 83.9 kg Zach Garcia MD 10/12/2023 5:26 PM Signed This note was created using NoteWriter. Subjective Patient presents with: Follow Up Shane Rodriguez is a 62 year old female. Diabetes was closer to goal. Her weight loss stopped last year on Jardiance, and her weight was coming back up. Her asthma and hypertension were controlled. Depression was worse, and she was scheduled to see Dr. Crispin Bustillos for psychiatry. She was being treated at the [facility] for toenail fungus (topical). Review of Systems Constitutional: Positive for unexpected weight change. Negative for appetite change, fatigue and fever. Respiratory: Negative for choking and shortness of breath. Cardiovascular: Negative for chest pain, palpitations and leg swelling. Gastrointestinal: Negative for abdominal pain, diarrhea, nausea and vomiting. Genitourinary: Negative for difficulty urinating. Neurological: Negative for dizziness and headaches. ACTIVE [...] use: No Current Outpatient Medications Medication Sig glipiZIDE (GLUCOTROL XL) 10mg 24 hr tablet Take 1 tablet by mouth once daily. folic acid 1 mg tablet Take 2 tablets by mouth once daily. empagliflozin (JARDIANCE) 25 mg tablet Take 1 tablet by mouth once daily. Take 1 tablet once daily in the morning nystatin (MYCOSTATIN) 100,000 unit/mL suspension Take 5 mL by mouth four times daily for 7 days. Swish several minutes, then swallow. Repeat as needed. lisinopril (ZESTRIL) 5 mg tablet Take 1 [...] capsule by mouth daily with breakfast. lancets ([employer]oak[employer]CH DEL[employer] LANCETS) 30 gauge Test blood sugar once daily. Dx: E11.9. Insulin: No fluticasone-vilanterol (BREO ELLIPTA) 200-25 mcg/dose inhaler Inhale 1 Inhalation as instructed once daily. ustekinumab (STELARA) 130 mg/26 mL injection albuterol HFA (PROVENTIL HFA, VENTOLIN HFA) 90 mcg/actuation inhaler Inhale 2 Puffs as instructed every 4 hours as needed for Wheezing/Shortness of Breath. fluticasone (FLONASE) 50 mcg/actuation nasal spray Use 1 Mcgregor in each nostril once daily. multivitamin tablet Take 1 tablet by mouth once daily. hyoscyamine sublingual (LEVSIN SL) 0.125 mg Dissolve 0.125 mg under the tongue every 4 hours as needed (2-4 times as needed). (Patient not taking: Reported on 10/12/2023) No current facility-administered medications for this visit. Objective BP 128/64 (BP Site: Left Arm, BP Position: Sitting, BP Cuff Size: Large Adult) Pulse 84 Temp 37.1 ?C (98.8 ?F) (Temporal) Resp 16 Wt 83.9 kg (185 lb) BMI 31.20 kg/m? Physical Exam Constitutional: General: She is not in acute distress. Appearance: She is not ill-appearing. HENT: Head: Normocephalic. Eyes: General: No scleral icterus. Conjunctiva/sclera: Conjunctivae normal. Cardiovascular: Rate and Rhythm: Normal rate and regular rhythm. Pulses: Normal pulses. Heart sounds: No murmur heard. No gallop. Pulmonary: Breath sounds: Normal breath sounds. Musculoskeletal: Right lower leg: No edema. Left lower leg: No edema. Neurological: Mental Status: She is alert. Feet:Shoes and socks removed, No deformities, ulcers, calluses, and not sensitive to monofilament in some toes. RIght big toe nail removed. Nails with hypertrophy. Assessment and Plan 1. Type 2 diabetes mellitus with diabetic neuropathy, without long-term current use of insulin ([facility]) - ICD9: 250.60, 357.2, ICD10: E11.40 (primary diagnosis) - Improving control - Continue current medications - Start dulaglutide (Trulicity) - ALBUMI (more content not included)... Normal [facility] CNPNon 10-06-2023 CNPN Telephone (INTMWS) SHANE RODRIGUEZ ([id number]) 1960 F Date Time Provider Department 10/06/23 ZACH GARCIA INTMWS During your visit today, we recorded the following information about you: Shane Bruno 10/06/2023 8:53 AM Signed Shane is calling Zach Garcia MD today with concern regarding phone call Patient asking for a nurse to return call. Patient wanting to discuss insulin to lose weight. Patient has been identified by name and birthdate. Duration of symptoms: N/A Person calling: self Call patient at: on cell [phone] (home) [phone] (cell) Was an appointment scheduled: No Closing statement: Results or non-symptom based questions: Thank you for calling [facility], your call will be returned within the next business day. Deneen Singh LPN 10/06/2023 9:34 AM Signed Patient last seen 09/02/2023, A1C 7.2 on 08/29/2023, weight 186. BMI 31.40. Do you want to see Patient in the office to discuss, please advise. Zach Kasper LPN, MD 10/06/2023 2:11 PM Signed She needs regular follow up for diabetes mellitus. Deneen Reeder LPN 10/06/2023 2:46 PM Signed Called AND spoke to tanya Nelson. Scheduled. Deneen Reeder LPN Allergies As of Date: 10/06/2023 Noted Allergy Reaction DOXYCYCLINE MONOHYDRATE 01/15/2011 4 - Hives 7 - Swelling 10 - Anaphylaxis ETODOLAC 01/07/2011 2 - Rash 7 - Swelling 9 - Itching ASULFAZINE (SULFASALAZINE) 09/19/2011 2 - Rash CEFDINIR 06/23/2006 2 - Rash SULFA DYNE 09/19/2011 2 - Rash Date Reviewed: 09/02/2023 Reviewed by: Cecilia Washington APRN.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 - Fully Assessed Reason for Visit: phone call [Other] Prescriptions as of 10/06/2023 - glipiZIDE (GLUCOTROL XL) 10mg 24 hr tablet Take 1 tablet by mouth once daily. - folic acid 1 mg tablet Take 2 tablets by mouth once daily. - hyoscyamine sublingual (LEVSIN SL) 0.125 mg Dissolve 0.125 mg under the tongue every 4 hours as needed (2-4 times as needed). - empagliflozin (JARDIANCE) 25 mg tablet Take 1 tablet by mouth once daily. Take 1 tablet once daily in the morning - amitriptyline (ELAVIL) 75 mg tablet Take 1 tablet by mouth daily at bedtime. - nystatin (MYCOSTATIN) 100,000 unit/mL suspension Take 5 mL by mouth four times daily for 7 days. Swish several minutes, then swallow. Repeat as needed. - lisinopril (ZESTRIL) 5 mg tablet Take 1 tablet by mouth once daily. Dose reduced. - montelukast (SINGULAIR) 10 mg tablet Take 1 tablet by mouth daily at bedtime. - atorvastatin (LIPITOR) 10 mg tablet Take 1 tablet by mouth daily at bedtime. For cholesterol. - omeprazole (PRILOSEC) 40 mg capsule Take 1 capsule by mouth once daily. - potassium chloride SR (MICRO-K) 8 mEq cpER Take 1 capsule by mouth daily with breakfast. - lancets ([employer] DELICA LANCETS) 30 gauge Test blood sugar [...] (FLONASE) 50 mcg/actuation nasal spray Use 1 Mcgregor in each nostril once daily. - multivitamin tablet Take 1 tablet by mouth once daily. Problem List As Of Date 10/06/2023 Noted Resolved Cervicalgia [M54.2] 01/20/2006 02/24/2011 Routine General Medical Examination at [facility]*05/26/2008 10/31/2011 Dermatophytosis of foot [B35.3] 05/26/2008 02/25/2011 Obesity, Unspecified [E66.9] 05/26/2008 07/19/2014 Essential hypertension [I10] 05/26/2008 Esophageal Reflux [K21.9] 05/26/2008 Dysmetabolic Syndrome X [E88.810] 07/07/2008 11/20/2009 Reflux [ZTR5041] 11/20/2009 Heartburn [R12] 02/24/2011 Diabetes mellitus (HCC) [...] [U07.1] 04/27/2020 09/06/2020 Moderate persistent asthma without complication* Encounter Status:Closed by EDMAR (more content not included)... Normal [facility] CNOVon 09-02-2023 CNOV Office Visit (FAMPWS ) SHANE RODRIGUEZ ([id number]) 1960 F Date Time Provider Department 09/02/23 4:00 PM [facility] During your visit today, we recorded the following information about you: Pulse Respiration Blood pressure Weight 88/minute 14/minute 122/60 84.5 kg Height 1.64 m Cecilia Washington APRN.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 09/02/2023 4:40 PM Signed Chief Complaint Patient presents with: yearly HPI Shane Rodriguez is a 62 year old female who presents here today for Above Complaints. Shane is an established patient of Dr. Chaka MD. She is a new patient to me today. Concerns today... HTN -- She states compliant with current blood pressure medication(s): lisinopril 5 mg daily. She does check BP at home occasionally but not frequently. WNL at home when she does check it. She denies chest pain, shortness of breath, palpitations, dizziness, leg edema, headaches, or vision changes. Last 14 Encounter BP Readings: Date: BP: 09/02/2023 122/60 04/23/2023 128/70 01/07/2023 126/76 09/24/2022 118/58 08/13/2022 128/68 09/13/2021 120/60 07/08/2021 132/72 05/02/2021 132/64 03/11/2021 127/71 01/21/2021 140/88 03/08/2020 136/68 12/05/2019 121/66 11/22/2019 116/66 10/03/2019 142/70 DM-- Patient reports she is feeling well overall in regards to diabetes A1C 7.2% from 08/29/23 Patient's last HgA1C was 7.0 in April. Current regimen: glipizide 10 mg daily and jardiance 25 mg daily Tolerating well: Yes Med compliance: Yes Checking sugars: Yes, once daily in the morning. Sugars range: 150-210 Signs of hypoglycemia?: no Diet: admits to poor/worsening diet the last few months. Trying to eat dinner early but then ends up eating very late at night again. Denies polyuria, polydipsia, numbness, tingling or pain in extremities, new or unusual visual symptoms, unintended weight changes, lightheadedness/dizzin ess, bowel changes/loose stools, chest pain or dyspnea Last eye exam: June 2023, updated in chart. Pt asking about injectable medication for weight loss and diabetes and wondering if she would be a good candidate for this. HLD --- Lipitor 10 mg daily. Tolerating well. CBC, CMP, and lipid panel completed on 08/29/23 (in scanned documents) -- all WNL. Sleep and fibromyalgia -- Current Amitriptyline regimen works well. Chrons and UC -- Dr More is managing this. Has been dx since 1994 Stelara injections routinely GERD -- Taking Prilosec with good relief. HM -- mammogram and colon cancer screening are up-to-date Past medical history, appointments, medications, allergies reviewed. Previous Medical History PAST MEDICAL HISTORY Diagnosis Date Acute deep [...] without long-term current use of insulin (HCC) 02/27/2016 Type II or unspecified type diabetes mellitus without mention of complication, not stated as uncontrolled 2009 Previous Surgical History PAST SURGICAL HISTORY Procedure Laterality Date ARTHRP KNE CONDYLEANDPLATU MEDIALANDLAT COMPARTMENTS Right 06/15/2017 CHOLECYSTECTOMY 09/13/1973 Cholecystectomy COLONOSCOPY 03/21/2018 COLONOSCOPY 10/27/2019 COLONOSCOPY 01/24/2021 Dr. Sarah More COLONOSCOPY FLX DX W/COLLJ SPEC WHEN PFRMD 03/27/1997 Colonoscopy COLONOSCOPY FLX DX W/COLLJ SPEC WHEN PFRMD 06/26/2011 Colonoscopy [facility] COLONOSCOPY FLX DX W/COLLJ SPEC WHEN PFRMD 06/30/2014 Colonoscopy COLONOSCOPY FLX DX W/COLLJ SPEC WHEN PFRMD 06/22/2015 Colonoscopy EGD 03/21/2018 EGD 10/27/2019 EGD 01/24/2021 Dr. Sarah More ESOPHAGOGASTRODUODENOS COPY TRANSORAL DIAGNOSTIC 06/30/2014 EGD KNEE ARTHROSCOPY/SURGERY Left [...] 07/26/2021 VAGINAL HYSTERECTOMY UTERUS 250 GM/< 03/15/1996 Family History FAMILY HISTORY Problem Relation Age of Onset Breast Cancer Mother other (brain aneurysm) Mother Ischemic Heart Disease Father Hypertension Father Diabetes Brother COPD Brother Coronary Ellyn (more content not included)... Normal [facility] 08-27-2023 CNPN Telephone (INTMWS) SHANE RODRIGUEZ ([id number]) 1960 F Date Time Provider Department 08/27/23 GARCIAZACH DUBOIS During your visit today, we recorded the following information about you: Ambreen Arnold LPN 08/27/2023 12:24 PM Signed Pt called and requested lab orders to be faxed to [facility]. She is an employee of [employer]. Faxed to: [phone]. Done. Ambreen Arnold LPN Allergies As of Date: 08/27/2023 Noted Allergy Reaction DOXYCYCLINE MONOHYDRATE 01/15/2011 4 - Hives 7 - Swelling 10 - Anaphylaxis ETODOLAC 01/07/2011 2 - Rash 7 - Swelling 9 - Itching ASULFAZINE (SULFASALAZINE) 09/19/2011 2 - Rash CEFDINIR 06/23/2006 2 - Rash SULFA DYNE 09/19/2011 2 - Rash Date Reviewed: 04/23/2023 Reviewed by: Deneen Reeder LPN - Fully Assessed Reason for Visit: fax orders to [facility] [Other] Prescriptions as of 08/27/2023 - empagliflozin (JARDIANCE) 25 mg tablet Take 1 tablet by mouth once daily. Take 1 tablet once daily in the morning - amitriptyline (ELAVIL) 75 mg tablet Take 1 tablet by mouth daily at bedtime. - nystatin (MYCOSTATIN) 100,000 unit/mL suspension Take 5 mL by mouth four times daily for 7 days. Swish several minutes, then swallow. Repeat as needed. - lisinopril (ZESTRIL) 5 mg tablet Take 1 tablet by mouth once daily. Dose reduced. - montelukast (SINGULAIR) 10 mg tablet Take 1 tablet by mouth daily at bedtime. - atorvastatin (LIPITOR) 10 mg tablet Take 1 tablet by mouth daily at bedtime. For cholesterol. - omeprazole (PRILOSEC) 40 mg capsule Take 1 capsule by mouth once daily. - potassium chloride SR (MICRO-K) 8 mEq cpER Take 1 capsule by mouth daily with breakfast. - folic acid 1 mg tablet Take 2 tablets by mouth once daily. - blood sugar diagnostic ([employer]ak[employer]CH ULTRA TEST) test strip Test once daily. Dx:E11.40. No insulin. - glipiZIDE (GLUCOTROL XL) 10mg 24 hr tablet Take 1 tablet by mouth once daily. - lancets ([employer]ak[employer] DELICA LANCETS) 30 gauge Test blood sugar [...] (FLONASE) 50 mcg/actuation nasal spray Use 1 Mcgregor in each nostril once daily. - Blood-Glucose Meter (The Cl[employer]akroomUCH ULTRA2) monitoring kit Use as directed to test blood sugar - multivitamin tablet Take 1 tablet by mouth once daily. Problem List As Of Date 08/27/2023 Noted Resolved Cervicalgia [M54.2] 01/20/2006 02/24/2011 Routine [facility] Medical Examination at [facility]05/26/2008 10/31/2011 Dermatophytosis of foot [B35.3] 05/26/2008 02/25/2011 Obesity, Unspecified [E66.9] 05/26/2008 07/19/2014 Essential hypertension [I10] 05/26/2008 Esophageal Reflux [K21.9] 05/26/2008 Dysmetabolic Syndrome X [E88.810] 07/07/2008 11/20/2009 Reflux [[id number]] 11/20/2009 Heartburn [R12] 02/24/2011 Diabetes mellitus (HCC) [...] [U07.1] 04/27/2020 09/06/2020 Moderate persistent asthma without complication* Encounter Status:Closed by AMBREEN ARNOLD on 08/27/23 [facility] CNOVon 04-23-2023 CNOV Office Visit (INTMWS ) SHANE RODRIGUEZ ([id number]) 1960 F Date Time Provider Department 04/23/23 4:00 PM ZACH GARCIA INTMWS During your visit today, we recorded the following information about you: Temperature Pulse Respiration Blood pressure 98.1 degrees 92/minute 16/minute 128/70 Weight 80.3 kg Zach Garcia MD 04/23/2023 11:13 PM Signed This note was created using SpanDeXriter. Subjective Patient presents with: F/U 3 Month Shane Jay Gail is a 62 year old female. Her [...] by mouth once daily. blood sugar diagnostic ([employer] Cloakroom[employer]CH ULTRA TEST) test strip Test once daily. Dx:E11.40. No insulin. empagliflozin (JARDIANCE) 25 mg tablet Take 1 tablet by mouth once daily. Take 1 tablet once daily in the morning glipiZIDE (GLUCOTROL XL) 10mg 24 hr tablet Take 1 tablet by mouth once daily. lancets (The CloakroomUCH DELICA LANCETS) 30 gauge Test blood sugar once daily. Dx: E11.9. Insulin: No fluticasone-vilanterol (BREO ELLIPTA) 200-25 mcg/dose inhaler Inhale 1 Inhalation as instructed once daily. ustekinumab (STELARA) 130 mg/26 mL injection albuterol HFA (PROVENTIL HFA, VENTOLIN HFA) 90 mcg/actuation inhaler Inhale 2 Puffs as instructed every 4 hours as needed for Wheezing/Shortness of Breath. fluticasone (FLONASE) 50 mcg/actuation nasal spray Use 1 Mcgregor in each nostril once daily. Blood-Glucose Meter (WorldStateTOUCH ULTRA2) monitoring kit Use as directed to [...] TABLET 3. Type 2 diabetes mellitus with diabe (more content not included)... Normal [facility] Alex 04-23-2023 [facility] Telephone (INTMWS) SHANE RODRIGUEZ ([id number]) 1960 F Date Time Provider Department 04/23/23 ZACH GARCIA INTMWS During your visit today, we recorded the following information about you: Ana Maria Henderson RN 04/23/2023 4:50 PM Signed Tia with [facility] called in with some questions on the Nystatin suspension. It says for it to be taken for 7 days and until gone, also it says to swallow or expectorate. She was asking for clarification on this. Please call and advise or send new Rx. Zach Garcia MD 04/23/2023 7:16 PM Signed Patient's request for medication is as follows Requested Prescriptions Signed Prescriptions Disp Refills nystatin (MYCOSTATIN) 100,000 unit/mL suspension 473 mL 1 Sig: Take 5 mL by mouth four times daily for 7 days. Swish several minutes, then swallow. Repeat as needed. Authorizing Provider: ZACH GARCIA Order entered - please phone pharmacy and notify patient. Zach Garcia MD Allergies As of Date: 04/23/2023 Noted Allergy Reaction DOXYCYCLINE MONOHYDRATE 01/15/2011 4 - Hives 7 - Swelling 10 - Anaphylaxis ETODOLAC 01/07/2011 2 - Rash 7 - Swelling 9 - Itching ASULFAZINE (SULFASALAZINE) 09/19/2011 2 - Rash CEFDINIR 06/23/2006 2 - Rash SULFA DYNE 09/19/2011 2 - Rash Date Reviewed: 04/23/2023 Reviewed by: Deneen Reeder LPN - Fully Assessed Reason for Visit: Medication Question [4288] Visit Diagnosis:Thrush [B37.0] Order(s):nystatin (MYCOSTATIN) 100,000 unit/mL suspensionTake 5 mL by mouth four times daily for 7 days. Swish several minutes, then swallow. Repeat as needed.Disp: 473 mLRfl: 1 Prescriptions as of 04/23/2023 - amitriptyline (ELAVIL) 75 mg tablet Take 1 tablet by mouth daily at bedtime. - nystatin (MYCOSTATIN) 100,000 unit/mL suspension Take 5 mL by mouth four times daily for 7 days. Swish several minutes, then swallow. Repeat as needed. - lisinopril (ZESTRIL) 5 mg tablet Take 1 tablet by mouth once daily. Dose reduced. - montelukast (SINGULAIR) 10 mg tablet Take 1 tablet by mouth daily at bedtime. - atorvastatin (LIPITOR) 10 mg tablet Take 1 tablet by mouth daily at bedtime. For cholesterol. - omeprazole (PRILOSEC) 40 mg capsule Take 1 capsule by mouth once daily. - potassium chloride SR (MICRO-K) 8 mEq cpER Take 1 capsule by mouth daily with breakfast. - folic acid 1 mg tablet Take 2 tablets by mouth once daily. - blood sugar diagnostic (The Cl[employer]akroom[employer]CH ULTRA TEST) test strip Test once daily. Dx:E11.40. No insulin. - empagliflozin (JARDIANCE) 25 mg tablet Take 1 tablet by mouth once daily. Take 1 tablet once daily in the morning - glipiZIDE (GLUCOTROL XL) 10mg 24 hr tablet Take 1 tablet by mouth once daily. - lancets ([employer] DELICA LANCETS) 30 gauge Test blood sugar [...] (FLONASE) 50 mcg/actuation nasal spray Use 1 Mcgregor in each nostril once daily. - Blood-Glucose Meter ([employer] ULTRA2) monitoring kit Use as directed to test blood sugar - multivitamin tablet Take 1 tablet by mouth once daily. Problem List As Of Date 04/23/2023 Noted Resolved Cervicalgia [M54.2] 01/20/2006 02/24/2011 Routine General Medical Examination at [facility]*05/26/2008 10/31/2011 Dermatophytosis of foot [B35.3] 05/26/2008 02/25/2011 Obesity, Unspecified [E66.9] 05/26/2008 07/19/2014 Essential hypertension [I10] 05/26/2008 Esophageal Reflux [K21.9] 05/26/2008 Dysmetabolic Syndrome X [E88.810] 07/07/2008 11/20/2009 Reflux [TDN8266] 11/20/2009 Heartburn [R12] 02/24/2011 Diabetes mellitus (HCC) [...] [U07.1] 04/27/2020 09/06/2020 Moderate persistent asthma without complication* Prescriptions ordered this encounter Disp (more content not included)... Normal [facility] Alex 04-20-2023 [facility] Telephone (INTMWS) SHANE RODRIGUEZ ([id number]) 1960 F Date Time Provider Department 04/20/23 ZACH GARCIA During your visit today, we recorded the following information about you: Cecelia Webb LPN 04/20/2023 1:20 PM Signed Patient calling she has appt with PCP on 04/23/2023, she is asking for lab work orders to be faxed to [facility]. Last labs were done end December 2022. Pending orders if wanted, needs diagnosis. Please advise Ana Maria Henderson, JAMARCUS 04/20/2023 2:47 PM Signed Labs faxed to [facility] lab at fax # [phone]. Called and left a voicemail for the Patient to call back and ask for a nurse to receive the providers message. JAMARCUS Colunga Barbara, RN 04/20/2023 3:11 PM Signed Pt returned the call and notified lab orders faxed to [facility] as requested. Allergies As of Date: 04/20/2023 Noted Allergy Reaction DOXYCYCLINE MONOHYDRATE 01/15/2011 4 - Hives 7 - Swelling 10 - Anaphylaxis ETODOLAC 01/07/2011 2 - Rash 7 - Swelling 9 - Itching ASULFAZINE (SULFASALAZINE) 09/19/2011 2 - Rash CEFDINIR 06/23/2006 2 - Rash SULFA DYNE 09/19/2011 2 - Rash Date Reviewed: 01/07/2023 Reviewed by: Kenia Maguire APRN.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 - Fully Assessed Reason for Visit: Lab Orders [7478] Primary Visit Diagnosis:Type 2 diabetes mellitus with diabetic neuropathy, without long-term current use of insulin (HCC) [E11.40] Order(s):HGB A1C [VJWQZ2I] Order #: [id number] FUTURE BASIC METABOLIC PNL [SQBMP] Order #: [id number] FUTURE Prescriptions as of 04/20/2023 - lisinopril (ZESTRIL) 5 mg tablet Take 1 tablet by mouth once daily. Dose reduced. - montelukast (SINGULAIR) 10 mg tablet Take 1 tablet by mouth daily at bedtime. - atorvastatin (LIPITOR) 10 mg tablet Take 1 tablet by mouth daily at bedtime. For cholesterol. - omeprazole (PRILOSEC) 40 mg capsule Take 1 capsule by mouth once daily. - potassium chloride SR (MICRO-K) 8 mEq cpER Take 1 capsule by mouth daily with breakfast. - amitriptyline (ELAVIL) 75 mg tablet Take 1 tablet by mouth daily at bedtime. - folic acid 1 mg tablet Take 2 tablets by mouth once daily. - blood sugar diagnostic ([employer] ULTRA TEST) test strip Test once daily. Dx:E11.40. No insulin. - empagliflozin (JARDIANCE) 25 mg tablet Take 1 tablet by mouth once daily. Take 1 tablet once daily in the morning - glipiZIDE (GLUCOTROL XL) 10mg 24 hr tablet Take 1 tablet by mouth once daily. - lancets ([employer] DELICA LANCETS) 30 gauge Test blood sugar [...] (FLONASE) 50 mcg/actuation nasal spray Use 1 Mcgregor in each nostril once daily. - Blood-Glucose Meter ([employer] ULTRA2) monitoring kit Use as directed to test blood sugar - multivitamin tablet Take 1 tablet by mouth once daily. Problem List As Of Date 04/20/2023 Noted Resolved Cervicalgia [M54.2] 01/20/2006 02/24/2011 Routine General Medical Examination at [facility]*05/26/2008 10/31/2011 Dermatophytosis of foot [B35.3] 05/26/2008 02/25/2011 Obesity, Unspecified [E66.9] 05/26/2008 07/19/2014 Essential hypertension [I10] 05/26/2008 Esophageal Reflux [K21.9] 05/26/2008 Dysmetabolic Syndrome X [E88.810] 07/07/2008 11/20/2009 Reflux [NHQ3221] 11/20/2009 Heartburn [R12] 02/24/2011 Diabetes mellitus (HCC) [...] [U07.1] 04/27/2020 09/06/2020 Moderate persistent asthma without complication* Encounter Status:Closed by JOSE MANUEL PRITCHETT on 04/20/23 [facility] Alex 04-08-2023 [place] Telephone (FAMPWS) SHANE RODRIGUEZ ([id number]) 1960 F Date Time Provider Department 04/08/23 ZACH GARCIA During your visit today, we recorded the following information about you: Alfonso Mo 04/08/2023 1:57 PM Signed Pt called asking if she can have her mammogram order from 09/24/22 sent to [facility] Please advise and contact pt if we are/ aren't able to. Jodee Farooq LPN 04/08/2023 2:13 PM Signed Order has been faxed to [facility] will await received confirmation prior to notifying patient. Jodee Farooq LPN 04/08/2023 2:16 PM Signed Confirmation it was sent. Patient aware of same. Allergies As of Date: 04/08/2023 Noted Allergy Reaction DOXYCYCLINE MONOHYDRATE 01/15/2011 4 - Hives 7 - Swelling 10 - Anaphylaxis ETODOLAC 01/07/2011 2 - Rash 7 - Swelling 9 - Itching ASULFAZINE (SULFASALAZINE) 09/19/2011 2 - Rash CEFDINIR 06/23/2006 2 - Rash SULFA DYNE 09/19/2011 2 - Rash Date Reviewed: 01/07/2023 Reviewed by: Kenia Maguire APRN.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 - Fully Assessed Reason for Visit: Orders [681] Prescriptions as of 04/08/2023 - lisinopril (ZESTRIL) 5 mg tablet Take 1 tablet by mouth once daily. Dose reduced. - montelukast (SINGULAIR) 10 mg tablet Take 1 tablet by mouth daily at bedtime. - atorvastatin (LIPITOR) 10 mg tablet Take 1 tablet by mouth daily at bedtime. For cholesterol. - omeprazole (PRILOSEC) 40 mg capsule Take 1 capsule by mouth once daily. - potassium chloride SR (MICRO-K) 8 mEq cpER Take 1 capsule by mouth daily with breakfast. - amitriptyline (ELAVIL) 75 mg tablet Take 1 tablet by mouth daily at bedtime. - folic acid 1 mg tablet Take 2 tablets by mouth once daily. - blood sugar diagnostic ([employer] ULTRA TEST) test strip Test once daily. Dx:E11.40. No insulin. - empagliflozin (JARDIANCE) 25 mg tablet Take 1 tablet by mouth once daily. Take 1 tablet once daily in the morning - glipiZIDE (GLUCOTROL XL) 10mg 24 hr tablet Take 1 tablet by mouth once daily. - lancets (ONET[employer]CH DELICA LANCETS) 30 gauge [...] (FLONASE) 50 mcg/actuation nasal spray Use 1 Mcgregor in each nostril once daily. - Blood-Glucose Meter ([employer] ULTRA2) monitoring kit Use as directed to test blood sugar - multivitamin tablet Take 1 tablet by mouth once daily. Problem List As Of Date 04/08/2023 Noted Resolved Cervicalgia [M54.2] 01/20/2006 02/24/2011 Routine General Medical Examination at [facility]*05/26/2008 10/31/2011 Dermatophytosis of foot [B35.3] 05/26/2008 02/25/2011 Obesity, Unspecified [E66.9] 05/26/2008 07/19/2014 Essential hypertension [I10] 05/26/2008 Esophageal Reflux [K21.9] 05/26/2008 Dysmetabolic Syndrome X [E88.810] 07/07/2008 11/20/2009 Reflux [RFG1319] 11/20/2009 Heartburn [R12] 02/24/2011 Diabetes mellitus (HCC) [...] [U07.1] 04/27/2020 09/06/2020 Moderate persistent asthma without complication* Encounter Status:Closed by JODEE FAROOQ on 04/08/23 Normal [facility] CORONAVIRUS PCR - [facility] 07-20-2021 SARS-CoV-2 (COVID-19) RNA ARNOLDO+probe Ql (Unsp spec) Negative Normal NORMAL: NEGATIVE [facility] Comment on above: Performed By: #### 2 [id number] #### [facility],[address] [place] [address] SEND TO IC? YES Normal [facility] Comment on above: Result Comment: RESU LTS FAXED TO INFECTION CONTROL. SARS-CoV-2 THIS TEST IS BEING USED UNDER THE FDA EUA PROCEDURE. THIS ASSAY HAS BEEN VALIDATED IN THE [facility] FOR USE WITH NASOPHARYNGEAL SPECIMENS IN [facility]. INTERPRETIVE DATA LABORATORY TEST RESULTS SHOULD ALWAYS BE CONSIDERED IN THE CONTEXT OF CLINICAL OBSERVATIONS AND EPIDEMIOLOGICAL DATA IN MAKING FINAL DIAGNOSIS AND PATIENT MANAGEMENT DECISIONS. PATIENT MANAGEMENT SHOULD FOLLOW CURRENT CDC GUIDELINES. A POSITIVE TEST RESULT FOR COVID-19 INDICATES THAT RNA FROM SARS-CoV-2 WAS DETECTED, AND THE PATIENT IS INFECTED WITH THE VIRUS AND PRESUMED TO BE CONTAGIOUS. A NEGATIVE TEST RESULT FOR THIS TEST MEANS THAT SARS-CoV-2 RNA WAS NOT PRESENT IN THE SPECIMEN ABOVE THE LIMIT OF DETECTION. HOWEVER, A NEGATVIE RESULT DOES NOT RULE OUT COVID-19 AND SHOULD NOT BE USED THE SOLE BASIS FOR TREATMENT OR PATIENT MANAGEMENT DECISIONS. A NEGATIVE RESULT DOES NOT EXCLUDE THE POSSIBILITY OF COVID-19. WHEN DIAGNOSTIC TESTING IS NEGATIVE, THE POSSIBLILTY OF A FALSE NEGATIVE RESULT SHOULD BE CONSIDERED IN THE CONTEXT OF A PATIENT'S RECENT EXPOSURES AND THE PRESENCE OF CLINICAL SIGNS AND SYMPTOMS CONSISTENT WITH COVID-19. THE POSSIBILITY OF A FALSE NEGATIVE RESULT SHOULD ESPECIALLY BE CONSIDERED IF THE PATIENT'S RECENT EXPOSURES OR CLINICAL PRESENTATION INDICATE THAT COVID-19 IS LIKELY, AND DIAGNOSTIC TESTS FOR OTHER CAUSES OF ILLNESS (e.g., OTHER RESPIRATORY ILLNESS) ARE NEGATIVE. IF COVID-19 IS STILL SUSPECTED BASED ON EXPOSURE HISTORY TOGETHER WITH OTHER CLINICAL FINDINGS, RE-TESTED SHOULD BE CONSIDERED BY HEALTHCARE PROVIDERS IN CONSULTATION WITH PUBLIC HEALTH AUTHORITIES. Performed By: #### 2 [id number] #### [place] [address] CT LOWER EXTREMITY LT WOon 0 06-05-2021 CT LOWER EXTREMITY LT WO [place] [address] Patient: SHANE RODRIGUEZ Phone#: : [phone] Age: 60 Gender: F Pt. Type: Out Account: [id number] Location: Ordering: [facility] Exam Date: 06/05/2021/14:41 Family Phys: Charge Code: [id number] Physician: [place] Order #: [id number] DLP Dose#: [id number] PROCEDURE: CT LOWER EXTREMITY LT WO CONTRAST COMPARISON: None. INDICATIONS: Conformis. TECHNIQUE: Multi-planar CT images were created without intravenous contrast. All CT scans at this facility use dose modulation, iterative reconstruction, and/or weight based dosing when appropriate to reduce radiation dose to as low as reasonably achievable. IV CONTRAST: No IV contrast used,0ml TOTAL DOSE: 36.70 CTDIvol(mGy) FINDINGS: BONES: Moderate degenerative changes of the knee are present. Subcortical cysts are present at the lateral tibial plateau, the posterior medial aspect of the medial tibial plateau. Osteophytes are present at the lateral femoral condyle and tibial plateau. There is avulsion versus loose body adjacent to the tip of the medial tibial spine. There is moderate narrowing of the medial, lateral and patellofemoral compartments. SOFT TISSUES: Negative. No visible soft tissue swelling. EFFUSION: None visible. OTHER: Negative. CONCLUSION: 1. Moderate degenerative changes of the knee are present. Subcortical cysts are present. 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 You need speech therapy as part of your treatment. We will help you to schedule your speech appointment after your visit or you can call Speech Therapy Scheduling at [phone]. Please follow up pending the outcome of speech therapy. 2. Call Dr An's office and obtain an audiogram so we understand how your hearing is impacting your voicing. Welcome to Dr. Vinson?s clinic. We are here to assist you through your ENT care at [facility]. Dr. Vinson is an ENT surgeon who specializes in voice, airway and swallowing issues. This means that she specializes in taking care of patients with complex voice, airway and swallowing problems. Dr. Vinson's office number is [phone]. Please use this number to contact her and her care team regardless of which office you use to access care. This number is the most direct way to communicate with all the members of the care team. Dr. Vinson?s paralegal legal secretary answers the office phone from 9am-4pm Mon-Fri. Call [phone] and push 2. She can help you with scheduling of appointments, general questions and information. You may need to leave a message if she is helping another patient. In this case, someone from the team will call you back the same day if you leave your message before 3pm, or the next business morning. Dr. Vinson?s nurse and can be reached by calling [phone]. We make every effort to return phone calls the same day. If you are in need of urgent assistance after hours, please call [phone] and ask for ENT individual pension consultant. Dr. Vinson works closely with speech therapists as they work together to help solve your issues with speech and swallowing. You may see a speech therapist during your appointment if Dr. Vinson feels this is needed. If you need to reach speech therapy to talk with a therapist or to schedule an appointment, please call [phone]. Others who may be included in your care are dieticians, social workers, audiologists, neurologists, and physical therapists. Dr. Vinson will provide these referrals as needed. Please let her know if you would like to request a specific referral. For your convenience, Dr. Vinson sees patients at different [facility] locations including the [facility] at [facility], and [facility] at the [facility]. While we try to make your appointments as convenient as possible, occasionally a visit to another location may be necessary to provide the best care for you. Dr. Vinson makes every effort to run on time for your appointments. Therefore, if you are more than 30 minutes late unrelated to a scan or another appointment such therapy or audiology, your appointment will need to be rescheduled to another day. We appreciate your understanding. We look forward to working with you to meet your healthcare goals. By signing my name below, I, Phoenix Freitas, attest that this documentation has been prepared under the direction and in the presence of Dr. Natalya Vinson MD. All medical record entries made by the Phoenix were at my direction and personally dictated by me. I have reviewed the chart and agree that the record accurately reflects my personal performance of the history, physical exam, discussion and plan. 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 Exacerbating factors include : high voice demand, likely hearing loss Treatment options discussed includin. We can consider conservative management of these lesions with speech therapy to work on voice modulation. If there are no improvements after speech therapy, we can consider laser treatment, and steroid injection. I think if we can get them to soften up, it will have significant impact on her voicing. This will have to involve decreased amount and volume of talking for about a month to effect change. She acknowledges this will be a hardship for her but is willing to try. . 2. Follow up with Dr. An's office for an audiogram. Hearing loss is a contributor to her hoarseness. The patient?s questions were answered. Chief Complaint Hoarseness History of Present IllnessSHANE RODRIGUEZ is a 60 year female referred to me today by Dr. 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 Patient reports persistent hoarseness since she had pneumonia 06/2019. Before the PNA occasional hoarseness for short periods of time. Coughed very harshly for 3 months. (more content not included)... 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 Recommendations For Therapeutic Interventions: speech/voice exercises and vocal hygiene program Patient/family understands and agrees with goals/plan. Potential for improvement: good Factors affecting prognosis: none Discussed plan of care with: patient, caregiver/family and physician Discussed risks/benefits with patient/caregiver. Patient/caregiver agreeable with plan of care. Assessment Voice assessment: Patient presents with dysphonia 2/2 a diagnosis of bilateral vocal cord lesions. Patient appears to be an excellent candidate for therapy which will target vocal wellness and voice retraining. Voice quality based on the GRBAS scale: 0=absent; 1=mild; 2=moderate; 3=severe Grade: 1-2 Roughness: 1-2 Breathiness: 0 Asthenia: 0 Strain: 1 Contributing Factors: supraglottic compression , habitual behaviors that misuse/abuse the voice and abnormal vibratory mechanisms due to physical changes NOMS Score: mild-moderate: level 5 Treatment recommendations: treatment indicated (see goals below) Adult Risk Screening Initial Fall Risk Screening: SHANE has not fallen in the last 6 months. SHANE does not have a fear of falling. She does not need assistance with sitting, standing or walking. Does not need assistance walking in her home. She does not need assistance in an unfamiliar setting. The patient is not using an assistive device. Pain Scale: On a scale of 0 to 10, the patient rates the pain at 0. Insurance Insurance reviewed Visit number: 1 Onset Date: 2020 Subjective Living Environment: home - patient lives with family. Patient arrival: accompanied by daughter Voice evaluation: Reason for Referral: SHANE RODRIGUEZ is a 60 year old female referred to Dr. Vinson [facility] for hoarseness related to mid cord lesions. Patient reports persistent [...] per the patient. Works second shift at [employer]. Uses amitriptyline to help sleep. PMH: reflux Social: tobacco - former, ETOH - none Referred by: Dr. Vinson Voice Use Inventory: Voice misuse/abuse: yes cough hyperphonia throat clear Exposure to noise: no Exposure to respiratory irritants: no Consistent use of singing voice: no Occupation relies on speaking voice: no Patient self assessment: Daily water intake: yes Daily caffeine intake: yes Alcohol intake: no Smoking history: yes Reflux history: yes Objective PERCEPTUAL VOICE FEATURES Intonation: WFL Loudness: increased Nasal resonance: WFL Additional vocal characteristics noted included: Throat clears/coughing FLEXIBLE LARYNGOSCOPY WITH STROBOSCOPY Glottic closure: hourglass Vocal fold mobility: normal Vibratory amplitude: decreased bilaterally Mucosal wave: symmetric Periodicity: periodic Secretions: + scattered secretions throughout the pharynx including the pharyngeal wall Mucosal edge: irregular bilaterally mid cord Supraglottic compression: increased Vascularity: bilateral vocal cord edema and erythema Pharyngeal contraction: normal Treatment Total time in clinic is 35 minutes. Treatment/Instructions /Information Provided: Initiated instruction this date in: cough/throat clear reduction techniques (effortful swallow, RTB, water gargle/swallow) seltzer gargle technique to safely remove mucus vocal wellness strategies to reduce cough/throat clear triggers and phono trauma Clinician modeled all techniques and a handout was provided to facilitate optimal home carryover. Education: Individual(s) Educated: patient and child Verbal education provided: risks/benefits of therapy, results of testing and exercises Written education provided: exercises Response to edu (more content not included)... Normal [facility] Tobacco Screening.on 021 Fall risk assessment a) No falls within the last year MG-Otolaryngolo [facility] [address] Work Phone: Tobacco use status [facility] b) No -Otolaryngolo [facility] [address] Work Phone: 25-Hydroxy D2+D3on 1 25-Hydroxy D Total 29.0 ng/mL Low 30.0-100.0 [facility] Reference Lab Comment on above: Performed By: #### X B12F, CBCDIF, WSR, CMP, CRP, VITD #### [facility] Routine Lab [address] [place], [place] [address] 25-Hydroxy D2 8.6 ng/mL Normal [facility] Comment on above: Performed By: #### X B12F, CBCDIF, WSR, CMP, CRP, VITD #### [facility] Routine Lab [address] [place] [phone] 25-Hydroxy D3 20.4 ng/mL Normal [facility] Comment on above: Performed By: #### X B12F, CBCDIF, WSR, CMP, CRP, VITD #### [facility] Routine Lab [address] [place] [phone] C-Reactive Proteinon 021 CRP [Mass/Vol] 0.7 mg/dL Normal <0.9 [facility] Comment on above: Performed By: #### C RP, CBCDIF, CMP, WSR #### [facility] Routine Lab [address] [place] [phone] #### D2D3 #### [facility] Chemistry [address] [place] [phone] CBC and Differentialon 07-06 Abs Baso 0.04 k/uL Normal <0.11 [facility] Comment on above: Performed By: #### C RP, CBCDIF, CMP, WSR #### [facility] Routine Lab [address] [place] [phone] #### D2D3 #### [facility] Chemistry [address] [place] [phone] Abs [place] 0.43 k/uL Normal <0.87 [facility] Lab Comment on above: Performed By: #### C RP, CBCDIF, CMP, WSR #### [facility] Routine Lab [address] [place] [phone] #### D2D3 #### [facility] Chemistry [address] [place] [phone] Abs Neut 3.86 k/uL Normal 1.45-7.50 [facility] Reference Lab Comment on above: Performed By: #### C RP, CBCDIF, CMP, WSR #### [facility] Routine Lab [address] [place] [phone] #### D2D3 #### [facility] Chemistry [address] [place] [phone] Absolute nRBC <0.01 Normal <0.01 [facility] Reference Lab Comment on above: Performed By: #### C RP, CBCDIF, CMP, WSR #### [facility] Routine Lab [address] [place] [phone] #### D2D3 #### [facility] Chemistry [address] [place] [phone] Basophils/100 WBC (Bld) 0.7 % Normal [facility] Reference Lab Comment on above: Performed By: #### C RP, CBCDIF, CMP, WSR #### [facility] Routine Lab [address] [place] [phone] #### D2D3 #### [facility] Chemistry [address] [place] [phone] DTYPE ADIFF Normal [facility] Reference Lab Comment on above: Performed By: #### C RP, CBCDIF, CMP, WSR #### [facility] Routine Lab [address] [place] [phone] #### D2D3 #### [facility] Chemistry [address] [place] [phone] Eosinophils (Bld) [#/Vol] 0.15 10*3/uL Normal <0.46 [facility] Reference Lab Comment on above: Performed By: #### C RP, CBCDIF, CMP, WSR #### [facility] Routine Lab [address] [place] [phone] #### D2D3 #### [facility] Chemistry [address] [place] [phone] Eosinophils/100 WBC (Bld) 2.5 % Normal [facility] Reference Lab Comment on above: Performed By: #### C RP, CBCDIF, CMP, WSR #### [facility] Routine Lab [address] [phone] #### D2D3 #### [facility] Chemistry [address] [phone] Erythrocyte distribution width (RBC) [Ratio] 14.9 % Normal 11.5-15.0 [facility] Reference Lab Comment on above: Performed By: #### C RP, CBCDIF, CMP, WSR #### [facility] Routine Lab [address] [phone] #### D2D3 #### [facility] Chemistry [address] [place] [phone] Hematocrit (Bld) [Volume fraction] 42.8 % Normal 36.0-46.0 [facility] Reference Lab Comment on above: Performed By: #### C RP, CBCDIF, CMP, WSR #### [facility] Routine Lab [address] [phone] #### D2D3 #### [facility] Chemistry [address] [place] [phone] Hemoglobin (Bld) [Mass/Vol] 13.0 g/dL Normal 11.5-15.5 [facility] Reference Lab Comment on above: Performed By: #### C RP, CBCDIF, CMP, WSR #### [facility] Routine Lab [address] [phone] #### D2D3 #### [facility] Chemistry [address] [place] [phone] Lymphocytes (Bld) [#/Vol] 1.46 10*3/uL Normal 1.00-4.00 [facility] Reference Lab Comment on above: Performed By: #### C RP, CBCDIF, CMP, WSR #### [facility] Routine Lab [address] [address] #### D2D3 #### [facility] Chemistry [address] [place] [address] Lymphocytes/100 WBC (Bld) 24.6 % Normal [facility] Reference Lab Comment on above: Performed By: #### C RP, CBCDIF, CMP, WSR #### [facility] Routine Lab [address] [place] [address] #### D2D3 #### [facility] Chemistry [address] [place] [address] MCH (RBC) [Entitic mass] 25.6 pG Low 26.0-34.0 [facility] Reference Lab Comment on above: Performed By: #### C RP, CBCDIF, CMP, WSR #### [facility] Routine Lab [address] [place] [address] #### D2D3 #### [facility] Chemistry [address] [place] [address] MCHC (RBC) [Mass/Vol] 30.4 g/dL Low 30.5-36.0 [facility] Reference Lab Comment on above: Performed By: #### C RP, CBCDIF, CMP, WSR #### [facility] Routine Lab [address] [place] [address] #### D2D3 #### [facility] Chemistry [address] [place], [place] [phone] MCV (RBC) [Entitic vol] 84.3 fL Normal 80.0-100.0 [facility] Reference Lab Comment on above: Performed By: #### C RP, CBCDIF, CMP, WSR #### [facility] Routine Lab [address] [place] [address] #### D2D3 #### [facility] Chemistry [address] [place] [address] Monocytes/100 WBC (Bld) 7.2 % Normal [facility] Reference Lab Comment on above: Performed By: #### C RP, CBCDIF, CMP, WSR #### [facility] Routine Lab [address] [phone] #### D2D3 #### [facility] Chemistry [address] [address] Neutrophils/100 WBC (Bld) 65.0 % Normal [facility] Reference Lab Comment on above: Performed By: #### C RP, CBCDIF, CMP, WSR #### [facility] Routine Lab [address] [phone] #### D2D3 #### [facility] Chemistry [address] [phone] NRBCs 0.0 /100 WBC Normal 0 [facility] Reference Lab Comment on above: Performed By: #### C RP, CBCDIF, CMP, WSR #### [facility] Routine Lab [address] [phone] #### D2D3 #### [facility] Chemistry [address] [phone] Platelet mean volume (Bld) [Entitic vol] 10.6 fL Normal 9.0-12.7 [facility] Reference Lab Comment on above: Performed By: #### C RP, CBCDIF, CMP, WSR #### [facility] Routine Lab [address] [phone] #### D2D3 #### [facility] Chemistry [address] [phone] Platelets (Bld) [#/Vol] 231 10*3/uL Normal 150-400 [facility] Reference Lab Comment on above: Performed By: #### C RP, CBCDIF, CMP, WSR #### [facility] Routine Lab [address] [phone] #### D2D3 #### [facility] Chemistry [address] [address] RBC (Bld) [#/Vol] 5.08 10*6/uL Normal 3.90-5.[address] [facility] Reference Lab Comment on above: Performed By: #### C RP, CBCDIF, CMP, WSR #### [facility] Routine Lab [address] [phone] #### D2D3 #### [facility] Chemistry [address] [place] [phone] WBC (Bld) [#/Vol] 5.94 10*3/uL Normal 3.70-11.[address] [facility] Reference Lab Comment on above: Performed By: #### C RP, CBCDIF, CMP, WSR #### [facility] Routine Lab [address] [place] [phone] #### D2D3 #### [facility] Chemistry [address] [address] Comp Metabolic Panelon 07-06 Albumin [Mass/Vol] 4.2 g/dL Normal 3.9-4.9 [facility] Reference Lab Comment on above: Performed By: #### C RP, CBCDIF, CMP, WSR #### [facility] Routine Lab [address] [phone] #### D2D3 #### [facility] Chemistry [address] [phone] ALP [Catalytic activity/Vol] 82 U/L Normal 34-123 [facility] Reference Lab Comment on above: Performed By: #### C RP, CBCDIF, CMP, WSR #### [facility] Routine Lab [address] [address] #### D2D3 #### [facility] Chemistry [address] [address] ALT [Catalytic activity/Vol] 22 U/L Normal 7-38 [facility] Reference Lab Comment on above: Performed By: #### C RP, CBCDIF, CMP, WSR #### [facility] Routine Lab [address] [phone] #### D2D3 #### [facility] Chemistry [address] [phone] Anion gap [Moles/Vol] 8 mmol/L Low 9-18 [facility] Reference Lab Comment on above: Performed By: #### C RP, CBCDIF, CMP, WSR #### [facility] Routine Lab [address] [phone] #### D2D3 #### [facility] Chemistry [address] [place] [phone] AST [Catalytic activity/Vol] 29 U/L Normal 13-35 [facility] Reference Lab Comment on above: Performed By: #### C RP, CBCDIF, CMP, WSR #### [facility] Routine Lab [address] [phone] #### D2D3 #### [facility] Chemistry [address] [phone] Bilirubin Ql (U) 0.4 mg/dL Normal 0.2-1.3 [facility] Reference Lab Comment on above: Performed By: #### C RP, CBCDIF, CMP, WSR #### [facility] Routine Lab [address] [address] #### D2D3 #### [facility] Chemistry [address] [phone] Calcium [Mass/Vol] 9.9 mg/dL Normal 8.5-10.2 [facility] Reference Lab Comment on above: Performed By: #### C RP, CBCDIF, CMP, WSR #### [facility] Routine Lab [address], [place] [phone] #### D2D3 #### [facility] Chemistry [address] [address] Chloride [Moles/Vol] 102 mmol/L Normal 97-105 [facility] Reference Lab Comment on above: Performed By: #### C RP, CBCDIF, CMP, WSR #### [facility] Routine Lab [address] [place] [address] #### D2D3 #### [facility] Chemistry [address] [place] [address] CO2 [Moles/Vol] 28 mmol/L Normal 22-30 [facility] Reference Lab Comment on above: Performed By: #### C RP, CBCDIF, CMP, WSR #### [facility] Routine Lab [address] [place] [phone] #### D2D3 #### [facility] Chemistry [address] [place] [address] Creatinine [Mass/Vol] 0.67 mg/dL Normal 0.58-0.96 [facility] Reference Lab Comment on above: Performed By: #### C RP, CBCDIF, CMP, WSR #### [facility] Routine Lab [address] [place] [address] #### D2D3 #### [facility] Chemistry [address] [place] [address] eGFR- Amer. >60 Normal [facility] Reference Lab Comment on above: Performed By: #### C RP, CBCDIF, CMP, WSR #### [facility] Routine Lab [address] [place] [address] #### D2D3 #### [facility] Chemistry [address], [place] [address] GFR/1.73 sq M predicted among non-blacks MDRD (S/P/Bld) [Vol rate/Area] mL/min/{1.73_m2} Normal [facility] Reference Lab Comment on above: Performed By: #### C RP, CBCDIF, CMP, WSR #### [facility] Routine Lab [address] [phone] #### D2D3 #### [facility] Chemistry [address] [phone] Glucose [Mass/Vol] 134 mg/dL High 74-99 [facility] Reference Lab Comment on above: Performed By: #### C RP, CBCDIF, CMP, WSR #### [facility] Routine Lab [address] [phone] #### D2D3 #### [facility] Chemistry [address] [place] [address] Potassium [Moles/Vol] 4.4 mmol/L Normal 3.7-5.1 [facility] Reference Lab Comment on above: Performed By: #### C RP, CBCDIF, CMP, WSR #### [facility] Routine Lab [address] [phone] #### D2D3 #### [facility] Chemistry [address] [place] [phone] Protein [Mass/Vol] 7.8 g/dL Normal 6.3-8.0 [facility] Reference Lab Comment on above: Performed By: #### C RP, CBCDIF, CMP, WSR #### [facility] Routine Lab [address] [phone] #### D2D3 #### [facility] Chemistry [address] [phone] Sodium [Moles/Vol] 138 mmol/L Normal 136-144 [facility] Reference Lab Comment on above: Performed By: #### C RP, CBCDIF, CMP, WSR #### [facility] Routine Lab [address], [place] [address] #### D2D3 #### [facility] Chemistry [address] [place] [address] Urea nitrogen [Mass/Vol] 13 mg/dL Normal 7-21 [facility] Reference Lab Comment on above: Performed By: #### C RP, CBCDIF, CMP, WSR #### [facility] Routine Lab [address] [place] [address] #### D2D3 #### [facility] Chemistry [address] [place] [address] Sed Rate Westergrenon 2020 Sed Rate Westergren 12 mm/hr Normal 0-[address] [facility] Reference Lab Comment on above: Performed By: #### C RP, CBCDIF, CMP, WSR #### [facility] Routine Lab [address] [place] [address] #### D2D3 #### [facility] Chemistry [address] [place] [address] Initial Visit (Otolaryngolog y)on 05-21-2020 Initial Visit (Otolaryngology) No report was sent Normal Touchwork s VitD, 1,25 Dihydroxyon 02-06 1,25 Dihydroxy VitD2 11.5 pg/mL Normal [facility] Reference Lab Comment on above: Performed By: #### X B12F, CBCDIF, WSR, CMP, CRP, VITD #### [facility] Routine Lab [address], [place] [address] 1,25 Dihydroxy VitD3 31.5 pg/mL Normal [facility] Reference Lab Comment on above: Performed By: #### X B12F, CBCDIF, WSR, CMP, CRP, VITD #### [facility] Routine Lab [address], [place] [address] Vit D,1,25 DiOH Normal 15.0-60.0 [facility] Reference Lab Comment on above: Result Comment: 43.0 This test was developed and its performance characteristics determined by [facility]'s Kenyon Gurrola [facility] [place] ( [facility]). It has not been cleared or approved by the FDA. [facility] is regulated under CLIA as qualified to perform high complexity testing. This test is used for clinical purposes. It should not be regarded as investigational or for research. Performed By: #### X B12F, CBCDIF, WSR, CMP, CRP, VITD #### [facility] Routine Lab [address], [place] [address] C-Reactive Proteinon 020 CRP [Mass/Vol] 0.7 mg/dL Normal <0.9 [facility] Reference Lab Comment on above: Performed By: #### X B12F, CBCDIF, WSR, CMP, CRP, VITD #### [facility] Routine Lab [address] [place] [address] CBC and Differentialon 02-02 Abs Baso <0.03 Normal <0.11 [facility] Reference Lab Comment on above: Performed By: #### X B12F, CBCDIF, WSR, CMP, CRP, VITD #### [facility] Routine Lab [address] [place] [address] Abs [place] 0.15 k/uL Normal <0.87 [facility] Reference Lab Comment on above: Performed By: #### X B12F, CBCDIF, WSR, CMP, CRP, VITD #### [facility] Routine Lab [address] [place], [place] [address] Abs Neut 2.79 k/uL Normal 1.45-7.50 [facility] Reference Lab Comment on above: Performed By: #### X B12F, CBCDIF, WSR, CMP, CRP, VITD #### [facility] Routine Lab [address], [place] [address] Absolute nRBC <0.01 Normal <0.01 [facility] Reference Lab Comment on above: Performed By: #### X B12F, CBCDIF, WSR, CMP, CRP, VITD #### [facility] Routine Lab [address] [phone] Basophils/100 WBC (Bld) 0.2 % Normal [facility] Reference Lab Comment on above: Performed By: #### X B12F, CBCDIF, WSR, CMP, CRP, VITD #### [facility] Routine Lab [address] [place] [phone] DTYPE ADIFF Normal [facility] Reference Lab Comment on above: Performed By: #### X B12F, CBCDIF, WSR, CMP, CRP, VITD #### [facility] Routine Lab [address] [place], [place] [phone] Eosinophils (Bld) [#/Vol] 0.11 10*3/uL Normal <0.46 [facility] Reference Lab Comment on above: Performed By: #### X B12F, CBCDIF, WSR, CMP, CRP, VITD #### [facility] Routine Lab [address] [place], [place] [phone] Eosinophils/100 WBC (Bld) 2.7 % Normal [facility] Reference Lab Comment on above: Performed By: #### X B12F, CBCDIF, WSR, CMP, CRP, VITD #### [facility] Routine Lab [address] [place], [place] [phone] Erythrocyte distribution width (RBC) [Ratio] 15.9 % High 11.5-15.0 [facility] Reference Lab Comment on above: Performed By: #### X B12F, CBCDIF, WSR, CMP, CRP, VITD #### [facility] Routine Lab [address] [place] [phone] Hematocrit (Bld) [Volume fraction] 38.5 % Normal 36.0-46.0 [facility] Reference Lab Comment on above: Performed By: #### X B12F, CBCDIF, WSR, CMP, CRP, VITD #### [facility] Routine Lab [address] [address] Hemoglobin (Bld) [Mass/Vol] 11.6 g/dL Normal 11.5-15.5 [facility] Reference Lab Comment on above: Performed By: #### X B12F, CBCDIF, WSR, CMP, CRP, VITD #### [facility] Routine Lab [address] [place] [address] Lymphocytes (Bld) [#/Vol] 0.99 10*3/uL Low 1.00-4.00 [facility] Reference Lab Comment on above: Performed By: #### X B12F, CBCDIF, WSR, CMP, CRP, VITD #### [facility] Routine Lab [address] [place] [address] Lymphocytes/100 WBC (Bld) 24.4 % Normal [facility] Reference Lab Comment on above: Performed By: #### X B12F, CBCDIF, WSR, CMP, CRP, VITD #### [facility] Routine Lab [address] [place] [address] MCH (RBC) [Entitic mass] 25.0 pG Low 26.0-34.0 [facility] Reference Lab Comment on above: Performed By: #### X B12F, CBCDIF, WSR, CMP, CRP, VITD #### [facility] Routine Lab [address] [place] [address] MCHC (RBC) [Mass/Vol] 30.1 g/dL Low 30.5-36.0 [facility] Reference Lab Comment on above: Performed By: #### X B12F, CBCDIF, WSR, CMP, CRP, VITD #### [facility] Routine Lab [address] [place] [address] MCV (RBC) [Entitic vol] 83.0 fL Normal 80.0-100.0 [facility] Reference Lab Comment on above: Performed By: #### X B12F, CBCDIF, WSR, CMP, CRP, VITD #### [facility] Routine Lab [address] [place], [place] [address] Monocytes/100 WBC (Bld) 3.7 % Normal [facility] Reference Lab Comment on above: Performed By: #### X B12F, CBCDIF, WSR, CMP, CRP, VITD #### [facility] Routine Lab [address] [place], [place] [address] Neutrophils/100 WBC (Bld) 69.0 % Normal [facility] Reference Lab Comment on above: Performed By: #### X B12F, CBCDIF, WSR, CMP, CRP, VITD #### [facility] Routine Lab [address] [address] NRBCs 0.0 /100 WBC Normal 0 [facility] Reference Lab Comment on above: Performed By: #### X B12F, CBCDIF, WSR, CMP, CRP, VITD #### [facility] Routine Lab [address] [place], [place] [address] Platelet mean volume (Bld) [Entitic vol] 10.4 fL Normal 9.0-12.7 [facility] Reference Lab Comment on above: Performed By: #### X B12F, CBCDIF, WSR, CMP, CRP, VITD #### [facility] Routine Lab [address] [place] [address] Platelets (Bld) [#/Vol] 218 10*3/uL Normal 150-400 [facility] Reference Lab Comment on above: Performed By: #### X B12F, CBCDIF, WSR, CMP, CRP, VITD #### [facility] Routine Lab [address] [place], [place] [address] RBC (Bld) [#/Vol] 4.64 10*6/uL Normal 3.90-5.[address] [facility] Reference Lab Comment on above: Performed By: #### X B12F, CBCDIF, WSR, CMP, CRP, VITD #### [facility] Routine Lab [address], [place] [phone] WBC (Bld) [#/Vol] 4.05 10*3/uL Normal 3.70-11.[address] [facility] Reference Lab Comment on above: Performed By: #### X B12F, CBCDIF, WSR, CMP, CRP, VITD #### [facility] Routine Lab [address] [place] [address] Comp Metabolic Panelon 02-02 Albumin [Mass/Vol] 4.1 g/dL Normal 3.9-4.9 [facility] Reference Lab Comment on above: Performed By: #### X B12F, CBCDIF, WSR, CMP, CRP, VITD #### [facility] Routine Lab [address] [place] [address] ALP [Catalytic activity/Vol] 66 U/L Normal 34-123 [facility] Reference Lab Comment on above: Performed By: #### X B12F, CBCDIF, WSR, CMP, CRP, VITD #### [facility] Routine Lab [address] [place] [address] [phone] ALT [Catalytic activity/Vol] 19 U/L Normal 7-38 [facility] Reference Lab Comment on above: Performed By: #### X B12F, CBCDIF, WSR, CMP, CRP, VITD #### [facility] Routine Lab [address] [place] [address] Anion gap [Moles/Vol] 13 mmol/L Normal 9-18 [facility] Reference Lab Comment on above: Performed By: #### X B12F, CBCDIF, WSR, CMP, CRP, VITD #### [facility] Routine Lab [address] [place] [address] AST [Catalytic activity/Vol] 30 U/L Normal 13-35 [facility] Reference Lab Comment on above: Performed By: #### X B12F, CBCDIF, WSR, CMP, CRP, VITD #### [facility] Routine Lab [address] [address] Bilirubin Ql (U) 0.4 mg/dL Normal 0.2-1.3 [facility] Reference Lab Comment on above: Performed By: #### X B12F, CBCDIF, WSR, CMP, CRP, VITD #### [facility] Routine Lab [address] [address] Calcium [Mass/Vol] 9.6 mg/dL Normal 8.5-10.2 [facility] Reference Lab Comment on above: Performed By: #### X B12F, CBCDIF, WSR, CMP, CRP, VITD #### [facility] Routine Lab [address] [place] [address] Chloride [Moles/Vol] 98 mmol/L Normal 97-105 [facility] Reference Lab Comment on above: Performed By: #### X B12F, CBCDIF, WSR, CMP, CRP, VITD #### [facility] Routine Lab [address] [place] [address] CO2 [Moles/Vol] 27 mmol/L Normal 22-30 [facility] Reference Lab Comment on above: Performed By: #### X B12F, CBCDIF, WSR, CMP, CRP, VITD #### [facility] Routine Lab [address] [place] [address] Creatinine [Mass/Vol] 0.62 mg/dL Normal 0.58-0.96 [facility] Reference Lab Comment on above: Performed By: #### X B12F, CBCDIF, WSR, CMP, CRP, VITD #### [facility] Routine Lab [address] [place] [address] eGFR- Amer. >60 Normal [facility] Reference Lab Comment on above: Performed By: #### X B12F, CBCDIF, WSR, CMP, CRP, VITD #### [facility] Routine Lab [address] [address] GFR/1.73 sq M predicted among non-blacks MDRD (S/P/Bld) [Vol rate/Area] mL/min/{1.73_m2} Normal [facility] Reference Lab Comment on above: Performed By: #### X B12F, CBCDIF, WSR, CMP, CRP, VITD #### [facility] Routine Lab [address] [place], [place] [address] Glucose [Mass/Vol] 187 mg/dL High 74-99 [facility] Reference Lab Comment on above: Performed By: #### X B12F, CBCDIF, WSR, CMP, CRP, VITD #### [facility] Routine Lab [address] [address] Potassium [Moles/Vol] 3.8 mmol/L Normal 3.7-5.1 [facility] Reference Lab Comment on above: Performed By: #### X B12F, CBCDIF, WSR, CMP, CRP, VITD #### [facility] Routine Lab [address] [place], [place] [address] Protein [Mass/Vol] 7.4 g/dL Normal 6.3-8.0 [facility] Reference Lab Comment on above: Performed By: #### X B12F, CBCDIF, WSR, CMP, CRP, VITD #### [facility] Routine Lab [address] [place], [place] [address] Sodium [Moles/Vol] 138 mmol/L Normal 136-144 [facility] Reference Lab Comment on above: Performed By: #### X B12F, CBCDIF, WSR, CMP, CRP, VITD #### [facility] Routine Lab [address] [place], [place] [address] Urea nitrogen [Mass/Vol] 8 mg/dL Normal 7-21 [facility] Reference Lab Comment on above: Performed By: #### X B12F, CBCDIF, WSR, CMP, CRP, VITD #### [facility] Routine Lab [address] [place], [place] [address] Sed Rate Westergrenon 2019 Sed Rate Westergren 23 mm/hr High 0-[address] [facility] Reference Lab Comment on above: Performed By: #### X B12F, CBCDIF, WSR, CMP, CRP, VITD #### [facility] Routine Lab [address] [address] CBC and Differentialon 08-20 Abs Baso 0.00 k/uL Normal <0.11 [facility] Reference Lab Comment on above: Performed By: #### X B12F, CBCDIF, WSR, CMP, CRP, VITD #### [facility] Routine Lab [address] [place] [address] Abs [place] 0.07 k/uL Normal <0.87 [facility] Reference Lab Comment on above: Performed By: #### X B12F, CBCDIF, WSR, CMP, CRP, VITD #### [facility] Routine Lab [address] [place] [address] Abs Neut 5.15 k/uL Normal 1.45-7.50 [facility] Reference Lab Comment on above: Performed By: #### X B12F, CBCDIF, WSR, CMP, CRP, VITD #### [facility] Routine Lab [address] [place] [address] ANC(includeSEG+BAND ) 5.15 k/uL Normal [facility] Reference Lab Comment on above: Performed By: #### X B12F, CBCDIF, WSR, CMP, CRP, VITD #### [facility] Routine Lab [address] [address] Basophils/100 WBC (Bld) 0.0 % Normal [facility] Reference Lab Comment on above: Performed By: #### X B12F, CBCDIF, WSR, CMP, CRP, VITD #### [facility] Routine Lab [address] [address] DTYPE MDIF Normal [facility] Reference Lab Comment on above: Performed By: #### X B12F, CBCDIF, WSR, CMP, CRP, VITD #### [facility] Routine Lab [address] [place], [place] [address] Eosinophils (Bld) [#/Vol] 0.21 10*3/uL Normal <0.46 [facility] Reference Lab Comment on above: Performed By: #### X B12F, CBCDIF, WSR, CMP, CRP, VITD #### [facility] Routine Lab [address] [place], [place] [address] Eosinophils/100 WBC (Bld) 3.0 % Normal [facility] Reference Lab Comment on above: Performed By: #### X B12F, CBCDIF, WSR, CMP, CRP, VITD #### [facility] Routine Lab [address] [place] [address] Giant Platelets OCCAS Normal [facility] Reference Lab Comment on above: Performed By: #### X B12F, CBCDIF, WSR, CMP, CRP, VITD #### [facility] Routine Lab [address] [place], [place] [address] Lymphocytes (Bld) [#/Vol] 1.46 10*3/uL Normal 1.00-4.00 [facility] Reference Lab Comment on above: Performed By: #### X B12F, CBCDIF, WSR, CMP, CRP, VITD #### [facility] Routine Lab [address] [place], [place] [address] Lymphocytes/100 WBC (Bld) 21.0 % Normal [facility] Reference Lab Comment on above: Performed By: #### X B12F, CBCDIF, WSR, CMP, CRP, VITD #### [facility] Routine Lab [address] [place], [place] [address] Monocytes/100 WBC (Bld) 1.0 % Normal [facility] Reference Lab Comment on above: Performed By: #### X B12F, CBCDIF, WSR, CMP, CRP, VITD #### [facility] Routine Lab [address] [address] Myelo% 1.0 % Normal [facility] Reference Lab Comment on above: Performed By: #### X B12F, CBCDIF, WSR, CMP, CRP, VITD #### [facility] Routine Lab [address] [place], [place] [id number] Neutrophils/100 WBC (Bld) 74.0 % Normal [facility] Reference Lab Comment on above: Performed By: #### X B12F, CBCDIF, WSR, CMP, CRP, VITD #### [facility] Routine Lab [address] [place] [address] Platelets (Bld) [#/Vol] ADQPLT Normal [facility] Reference Lab Comment on above: Performed By: #### X B12F, CBCDIF, WSR, CMP, CRP, VITD #### [facility] Routine Lab [address] [place] [address] Red Cell Morph UNREMK Normal [facility] Reference Lab Comment on above: Performed By: #### X B12F, CBCDIF, WSR, CMP, CRP, VITD #### [facility] Routine Lab [address] [place] [address] TSH Qn PRES Normal [facility] Reference Lab Comment on above: Performed By: #### X B12F, CBCDIF, WSR, CMP, CRP, VITD #### [facility] Routine Lab [address] [place] [address] C-Reactive Proteinon 020 CRP [Mass/Vol] 1.1 mg/dL High <0.9 [facility] Reference Lab Comment on above: Performed By: #### X B12F, CBCDIF, WSR, CMP, CRP, VITD #### [facility] Routine Lab [address] [place] [address] CBC and Differentialon 08-18 Erythrocyte distribution width (RBC) [Ratio] 14.0 % Normal 11.5-15.0 [facility] Reference Lab Comment on above: Performed By: #### X B12F, CBCDIF, WSR, CMP, CRP, VITD #### [facility] Routine Lab [address] [place] [address] Hematocrit (Bld) [Volume fraction] 42.6 % Normal 36.0-46.0 [facility] Reference Lab Comment on above: Performed By: #### X B12F, CBCDIF, WSR, CMP, CRP, VITD #### [facility] Routine Lab [address] [place] [address] Hemoglobin (Bld) [Mass/Vol] 13.3 g/dL Normal 11.5-15.5 [facility] Reference Lab Comment on above: Performed By: #### X B12F, CBCDIF, WSR, CMP, CRP, VITD #### [facility] Routine Lab [address] [place] [address] MCH (RBC) [Entitic mass] 26.2 pG Normal 26.0-34.0 [facility] Reference Lab Comment on above: Performed By: #### X B12F, CBCDIF, WSR, CMP, CRP, VITD #### [facility] Routine Lab [address] [place] [address] MCHC (RBC) [Mass/Vol] 31.2 g/dL Normal 30.5-36.0 [facility] Reference Lab Comment on above: Performed By: #### X B12F, CBCDIF, WSR, CMP, CRP, VITD #### [facility] Routine Lab [address] [place] [address] MCV (RBC) [Entitic vol] 83.9 fL Normal 80.0-100.0 [facility] Reference Lab Comment on above: Performed By: #### X B12F, CBCDIF, WSR, CMP, CRP, VITD #### [facility] Routine Lab [address] [address] Platelet mean volume (Bld) [Entitic vol] 9.9 fL Normal 9.0-12.7 [facility] Reference Lab Comment on above: Performed By: #### X B12F, CBCDIF, WSR, CMP, CRP, VITD #### [facility] Routine Lab [address] [place], [place] [address] Platelets (Bld) [#/Vol] 376 10*3/uL Normal 150-400 [facility] Reference Lab Comment on above: Performed By: #### X B12F, CBCDIF, WSR, CMP, CRP, VITD #### [facility] Routine Lab [address] [address] RBC (Bld) [#/Vol] 5.08 10*6/uL Normal 3.90-5.[address] [facility] Reference Lab Comment on above: Performed By: #### X B12F, CBCDIF, WSR, CMP, CRP, VITD #### [facility] Routine Lab [address] [address] WBC (Bld) [#/Vol] 6.96 10*3/uL Normal 3.70-11.[address] [facility] Reference Lab Comment on above: Performed By: #### X B12F, CBCDIF, WSR, CMP, CRP, VITD #### [facility] Routine Lab [address] [place] [address] Comp Metabolic Panelon 08-18 Albumin [Mass/Vol] 4.0 g/dL Normal 3.9-4.9 [facility] Reference Lab Comment on above: Performed By: #### X B12F, CBCDIF, WSR, CMP, CRP, VITD #### [facility] Routine Lab [address] [address] ALP [Catalytic activity/Vol] 63 U/L Normal 34-123 [facility] Reference Lab Comment on above: Performed By: #### X B12F, CBCDIF, WSR, CMP, CRP, VITD #### [facility] Routine Lab [address] [place], [place] [address] ALT [Catalytic activity/Vol] 17 U/L Normal 7-38 [facility] Reference Lab Comment on above: Performed By: #### X B12F, CBCDIF, WSR, CMP, CRP, VITD #### [facility] Routine Lab [address] [place], [place] [address] Anion gap [Moles/Vol] 15 mmol/L Normal 9-18 [facility] Reference Lab Comment on above: Performed By: #### X B12F, CBCDIF, WSR, CMP, CRP, VITD #### [facility] Routine Lab [address] [address] AST [Catalytic activity/Vol] 21 U/L Normal 13-35 [facility] Reference Lab Comment on above: Performed By: #### X B12F, CBCDIF, WSR, CMP, CRP, VITD #### [facility] Routine Lab [address] [address] Bilirubin Ql (U) 0.4 mg/dL Normal 0.2-1.3 [facility] Reference Lab Comment on above: Performed By: #### X B12F, CBCDIF, WSR, CMP, CRP, VITD #### [facility] Routine Lab [address] [place] [address] Calcium [Mass/Vol] 9.6 mg/dL Normal 8.5-10.2 [facility] Reference Lab Comment on above: Performed By: #### X B12F, CBCDIF, WSR, CMP, CRP, VITD #### [facility] Routine Lab [address] [place], [place] [address] Chloride [Moles/Vol] 97 mmol/L Normal 97-105 [facility] Reference Lab Comment on above: Performed By: #### X B12F, CBCDIF, WSR, CMP, CRP, VITD #### [facility] Routine Lab [address] [place], [place] [address] CO2 [Moles/Vol] 24 mmol/L Normal 22-30 [facility] Reference Lab Comment on above: Performed By: #### X B12F, CBCDIF, WSR, CMP, CRP, VITD #### [facility] Routine Lab [address] [place], [place] [address] Creatinine [Mass/Vol] 0.59 mg/dL Normal 0.58-0.96 [facility] Reference Lab Comment on above: Performed By: #### X B12F, CBCDIF, WSR, CMP, CRP, VITD #### [facility] Routine Lab [address] [place], [place] [address] eGFR- Amer. >60 Normal [facility] Reference Lab Comment on above: Performed By: #### X B12F, CBCDIF, WSR, CMP, CRP, VITD #### [facility] Routine Lab [address] [place], [place] [address] GFR/1.73 sq M predicted among non-blacks MDRD (S/P/Bld) [Vol rate/Area] mL/min/{1.73_m2} Normal [facility] Reference Lab Comment on above: Performed By: #### X B12F, CBCDIF, WSR, CMP, CRP, VITD #### [facility] Routine Lab [address] [place], [place] [address] Glucose [Mass/Vol] 110 mg/dL High 74-99 [facility] Reference Lab Comment on above: Performed By: #### X B12F, CBCDIF, WSR, CMP, CRP, VITD #### [facility] Routine Lab [address] [place], [place] [address] Potassium [Moles/Vol] 4.4 mmol/L Normal 3.7-5.1 [facility] Reference Lab Comment on above: Performed By: #### X B12F, CBCDIF, WSR, CMP, CRP, VITD #### [facility] Routine Lab [address] [place], [place] [address] Protein [Mass/Vol] 7.6 g/dL Normal 6.3-8.0 [facility] Reference Lab Comment on above: Performed By: #### X B12F, CBCDIF, WSR, CMP, CRP, VITD #### [facility] Routine Lab [address] [address] Sodium [Moles/Vol] 136 mmol/L Normal 136-144 [facility] Reference Lab Comment on above: Performed By: #### X B12F, CBCDIF, WSR, CMP, CRP, VITD #### [facility] Routine Lab [address] [place], [place] [address] Urea nitrogen [Mass/Vol] 7 mg/dL Normal 7-21 [facility] Reference Lab Comment on above: Performed By: #### X B12F, CBCDIF, WSR, CMP, CRP, VITD #### [facility] Routine Lab [address] [address] Sed Rate Westergrenon 2019 Sed Rate Westergren 27 mm/hr High 0-[address] [facility] Reference Lab Comment on above: Performed By: #### X B12F, CBCDIF, WSR, CMP, CRP, VITD #### [facility] Routine Lab [address] [place], [place] [address] Vit B12 / Folate For Ref Lab Use Onlyon 08-19-2019 Cobalamin (Vitamin B12) [Mass/Vol] 653 pg/mL Normal 232-1245 [facility] Reference Lab Comment on above: Performed By: #### X B12F, CBCDIF, WSR, CMP, CRP, VITD #### [facility] Routine Lab [address] [place], [place] [address] Folate [Mass/Vol] ng/mL Normal >4.7 [facility] Reference Lab Comment on above: Performed By: #### X B12F, CBCDIF, WSR, CMP, CRP, VITD #### [facility] Routine Lab [address] [place], [place] [address] Vitamin D 25 Hydroxyon 08-18 Vitamin D 25 Hydroxy 31.5 ng/mL Normal 31.0-80.0 [facility] Reference Lab Comment on above: Performed By: #### X B12F, CBCDIF, WSR, CMP, CRP, VITD #### [facility] Routine Lab [address] [place], [place] [address] [place] Pre-Surgical Histor y AND Physicalon 03-20-2017 [place] Pre-Surgical History AND Physical Normal [facility] ([place] .Auto Diffon 03-09-2017 Basophils Auto #/vol (Bld) 0.10 10 3/mcL Normal 0.00-0.19 [facility] ([place] Comment on above: Performed By: #### C BC, ADIFF, ANEU, BMP, A1C, GFR ####[address] [place], [place] [address] Basophils/100 WBC Auto (Bld) 0.7 % Normal 0.0-2.5 [facility] ([place] Comment on above: Performed By: #### C BC, ADIFF, ANEU, BMP, A1C, GFR ####[address] [place], [place] [address] Eosinophils 0.20 10 3/mcL Normal 0.00-0.40 [facility] ([place]) Comment on above: Performed By: #### C BC, ADIFF, ANEU, BMP, A1C, GFR ####[address] [place], [place] [address] Eosinophils/100 leukocytes 2.3 % Normal 0.0-7.0 [facility] ([place] Comment on above: Performed By: #### C BC, ADIFF, ANEU, BMP, A1C, GFR ####[address] [place], [place] [address] Lymphocytes 1.60 10 3/mcL Normal 0.77-3.85 [facility] ([place]) Comment on above: Performed By: #### C BC, ADIFF, ANEU, BMP, A1C, GFR ####[address] [place], [place] [address] Lymphocytes/100 leukocytes 21.2 % Normal 10.0-50.0 [facility] ([place] Comment on above: Performed By: #### C BC, ADIFF, ANEU, BMP, A1C, GFR ####[address] [place], [place] [address] Monocytes 0.50 10 3/mcL Normal 0.15-1.00 [facility] ([place]) Comment on above: Performed By: #### C BC, ADIFF, ANEU, BMP, A1C, GFR ####[address] [place], [place] [address] Monocytes/100 leukocytes 7.0 % Normal 1.7-13.0 [facility] ([place] Comment on above: Performed By: #### C BC, ADIFF, ANEU, BMP, A1C, GFR ####[address] [place], [place] [address] Neutrophils/100 WBC Auto (Bld) 68.8 % Normal 37.0-80.0 [facility] ([place] Comment on above: Performed By: #### C BC, ADIFF, ANEU, BMP, A1C, GFR ####[address] [place], [place] [address] .GFRon 03-09-2017 eGFR (non-black) 112 ml/min/1.73sqm Normal [facility] ([place] Comment on above: Result Comment: GFR Population mean for , Non- Americans Ages 20-29 = 116 mL/min/1.73 sq.m. Ages 30-39 = 107 mL/min/1.73 sq.m. Ages 40-49 = 99 mL/min/1.73 sq.m. Ages 50-59 = 93 mL/min/1.73 sq.m. Ages 60-69 = 85 mL/min/1.73 sq.m. Ages 70+ = 75 mL/min/1.73 sq.m.Chronic Kidney Disease: Less than 60 mL/min/1.73 square metersEnd Stage Renal Disease: Less than 15 mL/min/1.73 square meters Performed By: #### C BC, ADIFF, ANEU, BMP, A1C, GFR ####[address] [place], [place] [address] eGFR (non-black) mL/min/{1.73_m2} Normal [facility] ([place]) Comment on above: Result Comment: GFR Population mean for , Non- Americans Ages 20-29 = 116 mL/min/1.73 sq.m. Ages 30-39 = 107 mL/min/1.73 sq.m. Ages 40-49 = 99 mL/min/1.73 sq.m. Ages 50-59 = 93 mL/min/1.73 sq.m. Ages 60-69 = 85 mL/min/1.73 sq.m. Ages 70+ = 75 mL/min/1.73 sq.m.Chronic Kidney Disease: Less than 60 mL/min/1.73 square metersEnd Stage Renal Disease: Less than 15 mL/min/1.73 square meters Performed By: #### C BC, ADIFF, ANEU, BMP, A1C, GFR ####[address] [place], [place] [address] .NEUABSon 03-09-2017 Neutrophils 5.20 10 3/mcL Normal 2.85-6.16 [facility] ([place]) Comment on above: Performed By: #### C BC, ADIFF, ANEU, BMP, A1C, GFR ####[address] [place], [place] [address] A1Con 03-09-2017 Hemoglobin A1c/Hemoglobin.tota l mass fraction (Bld) 6.3 % High 4.8-5.9 [facility] ([place]) Comment on above: Performed By: #### C BC, ADIFF, ANEU, BMP, A1C, GFR ####[address] [place], [place] [address] BMPon 03-09-2017 BUN/Creatinine Ratio 20 ratio Normal 7-27 [facility] ([place] Comment on above: Performed By: #### C BC, ADIFF, ANEU, BMP, A1C, GFR ####[address] [place], [place] [address] Calcium 9.1 mg/dL Normal 8.4-10.2 [facility] ([place] Comment on above: Performed By: #### C BC, ADIFF, ANEU, BMP, A1C, GFR ####[id number] [place], [place] [address] Chloride 102 mmol/L Normal 98-107 [facility] ([place] Comment on above: Performed By: #### C BC, ADIFF, ANEU, BMP, A1C, GFR ####[address] [place], [place] [address] CO2 23 mmol/L Normal 22-29 [facility] ([place] Comment on above: Performed By: #### C BC, ADIFF, ANEU, BMP, A1C, GFR ####[address] [place], [place] [address] Creatinine 0.7 mg/dL Normal 0.6-1.2 [facility] ([place] Comment on above: Performed By: #### C BC, ADIFF, ANEU, BMP, A1C, GFR ####[address] [place], [place] [address] Electrolyte Balance 11.0 mEq/L Normal [facility] ([place]) Comment on above: Performed By: #### C BC, ADIFF, ANEU, BMP, A1C, GFR ####[address] [place], [place] [address] Glucose mass conc 142 mg/dL High 70-105 [facility] ([place] Comment on above: Performed By: #### C BC, ADIFF, ANEU, BMP, A1C, GFR ####[id number] [place], [place] [address] Potassium molar conc 4.2 mmol/L Normal 3.5-5.1 [facility] ([place] Comment on above: Performed By: #### C BC, ADIFF, ANEU, BMP, A1C, GFR ####[id number] [place], [place] [address] Sodium 136 mmol/L Normal 136-146 [facility] ([place] Comment on above: Performed By: #### C BC, ADIFF, ANEU, BMP, A1C, GFR ####[address] [place], [place] [address] Urea nitrogen 14.1 mg/dL Normal 7.0-18.0 [facility] ([place]) Comment on above: Performed By: #### C BC, ADIFF, ANEU, BMP, A1C, GFR ####[address] [place], [place] [address] CBCon 03-09-2017 Erythrocyte distribution width Auto Ratio (RBC) 15.9 % High 11.5-14.5 [facility] ([place] Comment on above: Performed By: #### C BC, ADIFF, ANEU, BMP, A1C, GFR ####[address] [place], [place] [address] Erythrocytes (RBC) 4.84 10 6/mcL Normal 4.20-5.40 [facility] ([place]) Comment on above: Performed By: #### C BC, ADIFF, ANEU, BMP, A1C, GFR ####[address] [place], [place] [address] Hematocrit (HCT) 37.7 % Normal 37.0-47.0 [facility] ([place] Comment on above: Performed By: #### C BC, ADIFF, ANEU, BMP, A1C, GFR ####[address] [place], [place] [address] Hemoglobin mass conc (Bld) 12.4 G/dL Normal 12.0-16.0 [facility] ([place] Comment on above: Performed By: #### C BC, ADIFF, ANEU, BMP, A1C, GFR ####[address] [place], [place] [address] MCH 25.7 pg Low 27.0-31.2 [facility] ([place] Comment on above: Performed By: #### C BC, ADIFF, ANEU, BMP, A1C, GFR ####[address] [place], [place] [address] MCHC mass conc (RBC) 33.0 G/dL Normal 33.0-37.0 [facility] ([place] Comment on above: Performed By: #### C BC, ADIFF, ANEU, BMP, A1C, GFR ####[address] [id number] MCV 77.8 fL Low 80.0-94.0 [facility] ([place] Comment on above: Performed By: #### C BC, ADIFF, ANEU, BMP, A1C, GFR ####[id number] [place], [place] [address] Platelet mean volume (PMV) 8.1 fL Normal 7.4-10.4 [facility] ([place] Comment on above: Performed By: #### C BC, ADIFF, ANEU, BMP, A1C, GFR ####[address] [place], [place] [address] Platelets 204 10 3/mcL Normal 130-400 Counts include 234 beds at the [facility] ([place]) Comment on above: Performed By: #### C BC, ADIFF, ANEU, BMP, A1C, GFR ####[address] [place], [place] [address] WBC (Leukocytes) 7.60 10 3/mcL Normal 4.60-10.80 [facility] ([place]) Comment on above: Performed By: #### C BC, ADIFF, ANEU, BMP, A1C, GFR ####[address] [place], [place] [address] CT KNEE W/O CONTRAST RIGHTon 02-05-2017 CT KNEE W/O CONTRAST RIGHT ORIGINAL\H\CT of the right knee Technique:\N\ ConforMIS protocol including right knee, right hip and right ankle. INDICATION: Osteoarthritis, history of chronic knee pain This exam was performed according to our departmental dose-optimization program which includes automated exposure control, adjustment of the mA and/or kVp according to patient size and/or use of iterative reconstruction technique where applicable. COMPARISON: None \H\Results:\N\ KNEE: Lateral compartment: There is severe medial compartment degenerative arthritis with marginal spurring, subchondral sclerosis and subchondral cystic changes in the medial tibial plateau. There is also spurring of the tibial spines. The medial compartment is moderately narrowed. Medial compartment: There is minimal marginal spurring and subchondral sclerosis. No significant medial compartment narrowing. Patellofemoral compartment: There is moderate patellofemoral marginal spurring. No patellar tracking abnormality. No significant compartment narrowing. Other: There is small joint effusion. No significant popliteal cyst. Hip: Limited axial slices through the hip joint demonstrate mild degenerative arthritis of the hip. There is enthesopathy of the greater trochanter and ischial tuberosity. Ankle: The ankle joint is unremarkable. \H\N\H\IMPRESSION:\N \Tricompartment degenerative arthritis of the knee most pronounced in the lateral compartment as described. Mild right hip degenerative arthritis. Interpreted By: Mohamud Curielreliminary Report By: Mohamud Curiel MDElectronically Signed By: Mohamud Curiel MD Dictated Date: 02/05/2017 7:56:57 AM Prelim Date: 02/05/2017 7:56:57 AM Sign Date: 02/05/2017 8:02:34 AM Normal [facility] ([place]) Vital Signs Date Time Vital Sign Value Performing Clinician Facility 10-12-2023 16:20-0400 Body mass index (BMI) [Ratio] 31.2 kg/m2 Zach Garcia MD Work Phone: [facility] 10-12-2023 16:20-0400 Body temperature 98.8 [degF] Zach Garcia MD Work Phone: [facility] 10-12-2023 16:20-0400 Body weight 83.92 kg Zach Garcia MD Work Phone: [facility] 10-12-2023 16:20-0400 Diastolic blood pressure 64 mm[Hg] Zach Garcia MD Work Phone: [facility] 10-12-2023 16:20-0400 Heart rate 84 /min Zach Garcia MD Work Phone: [facility] 10-12-2023 16:20-0400 Respiratory rate 16 /min Zach Garcia MD Work Phone: [facility] 10-12-2023 16:20-0400 Systolic blood pressure 128 mm[Hg] Zach Garcia MD Work Phone: [facility] 09-02-2023 15:39-0400 Body height 164 cm Cecilia Washington APRN.CNP Work Phone: [facility] 09-02-2023 15:39-0400 Body mass index (BMI) [Ratio] 31.4 kg/m2 Cecilia Washington APRN.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 Work Phone: [facility] 09-02-2023 15:39-0400 Body weight 84.46 kg Cecilia Washington REINFORCING ROD LAYER.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 Work Phone: [facility] 09-02-2023 15:39-0400 Diastolic blood pressure 60 mm[Hg] Cecilia Washington REINFORCING ROD LAYER.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 Work Phone: [facility] 09-02-2023 15:39-0400 Heart rate 88 /min Cecilia Washington REINFORCING ROD LAYER.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 Work Phone: [facility] 09-02-2023 15:39-0400 Respiratory rate 14 /min Cecilia Washington REINFORCING ROD LAYER.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 Work Phone: [facility] 09-02-2023 15:39-0400 Systolic blood pressure 122 mm[Hg] Cecilia Washington REINFORCING ROD LAYER.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 Work Phone: [facility] 09-24-2022 17:32-0400 Diastolic blood pressure 58 mm[Hg] Zach Garcia MD Work Phone: [place] [facility] 09-24-2022 17:32-0400 Systolic blood pressure 118 mm[Hg] Zach Garcia MD Work Phone: [facility] 09-24-2022 17:00-0400 Body weight 80.29 kg Zahc Garcia MD Work Phone: [facility] 09-24-2022 17:00-0400 Heart rate 80 /min Zach Garcia MD Work Phone: [facility] 09-24-2022 17:00-0400 Respiratory rate 18 /min Zach Garcia MD Work Phone: [facility] 09-13-2021 10:51-0400 Body temperature 97.81 [degF] Zach Garcia MD Work Phone: [facility] 09-13-2021 10:51-0400 Body weight 82.56 kg Zach Garcia MD Work Phone: [facility] 09-13-2021 10:51-0400 Diastolic blood pressure 60 mm[Hg] Zach Garcia MD Work Phone: [facility] 09-13-2021 10:51-0400 Heart rate 95 /min Zach Garcia MD Work Phone: [facility] 09-13-2021 10:51-0400 Respiratory rate 16 /min Zach Garcia MD Work Phone: [facility] 09-13-2021 10:51-0400 SaO2% (BldA) [Mass fraction] 97 % Zach Garcia MD Work Phone: [facility] 09-13-2021 10:51-0400 Systolic blood pressure 120 mm[Hg] Zach Garcia MD Work Phone: [facility] 07-08-2021 10:08-0400 Body weight 84.37 kg Jennifer Varghese REINFORCING ROD LAYER.FOCUS PULLER Work Phone: [facility] 07-08-2021 10:08-0400 Diastolic blood pressure 72 mm[Hg] Jennifer Varghese REINFORCING ROD LAYER.FOCUS PULLER Work Phone: [facility] 07-08-2021 10:08-0400 Heart rate 92 /min Jennifer Varghese REINFORCING ROD LAYER.FOCUS PULLER Work Phone: [facility] 07-08-2021 10:08-0400 Respiratory rate 16 /min Jennifer Varghese REINFORCING ROD LAYER.FOCUS PULLER Work Phone: [facility] 07-08-2021 10:08-0400 Systolic blood pressure 132 mm[Hg] Jennifer Varghese REINFORCING ROD LAYER.FOCUS PULLER Work Phone: [facility] 01-01-2021 12:52-0400 Body height 162.56 cm Zach Garcia [facility] Work Phone: 01-01-2021 12:52-0400 Body mass index (BMI) [Ratio] 32.61 kg/m2 Zach Garcia [facility] Work Phone: 01-01-2021 12:52-0400 Body surface area Derived from formula 1.91 m2 Zach Garcia Work Phone: [facility] 4102 Work Phone: 01-01-2021 12:52-0400 Body weight 86.18 kg Zach Garcia [facility] 4[facility] Work Phone: Encounters Encounter Date Encounter Type Care Provider Facility Start: 01-07-2024 End: 01-07-2024 Telephone encounter Zach Garcia MD Work Phone: [facility] [place] Comment on above: requesting medicatio n that is Refill Request Start: 10-19-2023 Telephone encounter Zach riggs MD Work Phone: [facility] [place] Comment on above: Results Start: 10-12-2023 End: 10-12-2023 ambulatory ZACH GARCIA Facility:[facility] Start: 10-12-2023 End: 10-12-2023 Patient encounter procedure Zach Garcia MD Work Phone: [facility] [place] Comment on above: Type 2 diabetes matilde itus with diabetic neuropathy, without long-term current use of insulin (HCC) (Primary Dx); Essential hypertension; Depressive disorder; Moderate persistent asthma without complication; Obesity (BMI 30-39.9) Start: 10-06-2023 Refill Zach dubois MD Work Phone: [facility] [place] Comment on above: Refill Request phone call Start: 09-02-2023 End: 09-02-2023 Patient encounter procedure Ceciliafrancis [place] APRN.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 Work Phone: [facility] [place] Comment on above: Well adult exam (Leighann kam Dx); Type 2 diabetes mellitus with diabetic neuropathy, without long-term current use of insulin (HCC); Essential hypertension; Fibromyalgia; Moderate persistent asthma without complication; Crohn's disease of colon without complication (HCC); Gastroesophageal reflux disease, unspecified whether esophagitis present; Hyperlipidemia, unspecified hyperlipidemia type Start: 09-02-2023 End: 09-02-2023 Patient encounter status Cecilia Washington DUANE Work Phone: [facility] Start: 09-02-2023 End: 09-02-2023 ambulatory CECILIA WASHINGTON Facility:[facility] Start: 09-02-2023 Encounter for genera l adult medical examination without abnormal findings CECILIA WASHINGTON [facility] Start: 08-27-2023 Telephone encounter Zach riggs MD Work Phone: [facility] [place] Comment on above: fax orders to [facility] Start: 05-29-2023 Refill Zach dubois MD Work Phone: [facility] [place] Comment on above: Refill Request Start: 04-23-2023 End: 04-23-2023 ambulatory ZACH GARCIA Facility:[facility] Start: 12-30-2022 Refill Zach dubois MD Work Phone: [facility] [place] Comment on above: Refill Request Start: 12-23-2022 Refill Zach dubois MD Work Phone: [facility] [place] Comment on above: Refill Request Start: 12-19-2022 Telephone encounter Zach riggs MD Work Phone: [facility] [place] Comment on above: Orders Start: 09-24-2022 End: 09-24-2022 Patient encounter procedure Zach Garcia MD Work Phone: [facility] [place] Comment on above: Disequilibrium (Prim dorina Dx); Moderate persistent asthma without complication; Type 2 diabetes mellitus with diabetic neuropathy, without long-term current use of insulin (HCC); Essential hypertension; Encounter for screening mammogram for malignant neoplasm of breast; History of falling; Fibromyalgia; Need for vaccination Start: 09-17-2022 Refill Zach dubois MD Work Phone: [facility] [place] Comment on above: Refill Request Start: 08-13-2022 ambulatory Zach dubois MD Work Phone: [facility] [place] Start: 05-02-2022 Refill Zach dubois MD Work Phone: [facility] [place] Comment on above: Refill Request Start: 03-24-2022 Refill Zach dubois MD Work Phone: [facility] [place] Comment on above: Refill Request Start: 01-29-2022 Refill Zach dubois MD Work Phone: [facility] [place] Comment on above: Refill Request Start: 12-13-2021 Refill Zach dubois MD Work Phone: [facility] [place] Comment on above: Refill Request (NEW PHARMACY) Start: 11-26-2021 Telephone encounter Zach riggs MD Work Phone: [facility] [place] Comment on above: Vaginal Problem; Med ication Update Start: 09-13-2021 End: 09-13-2021 Patient encounter procedure Zach Garcia MD Work Phone: [facility] [place] Comment on above: Fibromyalgia (Primar y Dx); Type 2 diabetes mellitus with diabetic neuropathy, without long-term current use of insulin (HCC); Essential hypertension; Encounter for screening mammogram for malignant neoplasm of breast Start: 07-20-2021 End: 07-20-2021 ambulatory [facility] Start: 07-08-2021 End: 07-08-2021 Patient encounter procedure Jennifer Varghese APRN.FOCUS PULLER Work Phone: [facility] [place] Comment on above: Preop exam for inter nal medicine (Primary Dx) Start: 07-08-2021 End: 07-08-2021 Patient encounter status Jennifer Varghese APRN.FOCUS PULLER Work Phone: [facility] [place] Start: 06-05-2021 End: 06-05-2021 ambulatory MARTÍN BRONSON [facility] Start: 10-14-2021 Patient encounter procedure Zach Garcia Work Phone: [facility] 4105 Work Phone: Start: 01-01-2021 Office consultation new/estab patient 60 min Zach Garcia Work Phone: [facility] 4104 Work Phone: Start: 01-01-2021 Patient encounter procedure Zach Garcia Work Phone: [facility] 410 Work Phone: Start: 03-09-2017 End: 03-10-2017 Ambulatory [facility] Facility:[facility] Start: 02-04-2017 End: 02-05-2017 [facility] Facility:[facility] Start: 01-22-2017 Ambulatory [facility] Facility: Start: 05-26-2008 End: 10-31-2011 Patient encounter status Zach Garcia MD Work Phone: [facility] Work Phone: Procedures Date Procedure Procedure Detail Performing Clinician Start: 11-04-2021 Colonoscopy Zach Rivera MD Work Phone: Start: 11-14-2020 Mammography Jennifer Broo hao REINFORCING ROD LAYER.FOCUS PULLER Work Phone: Start: 10-27-2019 Colonoscopy Jennifer Broo hao REINFORCING ROD LAYER.FOCUS PULLER Work Phone: Plan of Treatment Date Care Activity Detail Author Start: 06-01-2028 Urine microalbumin profile [facility] Start: 11-04-2026 Colonoscopy COLONOSCOPY [facility] Start: 11-04-2026 COLORECTAL CANCER SCREENING COLORECTAL CANCER SCREENING [facility] Start: 11-04-2026 Screening for malign ant neoplasm of colon [facility] Start: 10-26-2024 Colonoscopy COLONOSCOPY [facility] Start: 10-26-2024 COLORECTAL CANCER SCREENING COLORECTAL CANCER SCREENING [facility] Start: 10-11-2024 Annual PCP Team Drafter Mechanical alana Disease Visit Annual PCP Team Chronic Disease Visit [facility] Start: 10-11-2024 BP Controlled (<130/80) BP Controlle d (<130/80) [facility] Start: 10-11-2024 Diabetic foot examination Diabetic Foot Exam [facility] Start: 09-01-2024 Annual PCP Team Drafter Mechanical alana Disease Visit Annual PCP Team Chronic Disease Visit [facility] Start: 09-01-2024 BP Controlled (<130/80) BP Controlle d (<130/80) [facility] Start: 09-01-2024 RSV Vaccine (1 - 1-d ose 60+ series) RSV Vaccine (1 - 1-dose 60+ series) [facility] Comment on above: Postponed from 11/01 (Declined at this time) Start: 09-01-2024 RSV Vaccine (1 - Ris k 60-74 years 1-dose series) RSV Vaccine (1 - Risk 60-74 years 1-dose series) [facility] Comment on above: Postponed from 11/01 (Declined at this time) Start: 06-21-2024 Glaucoma screening Dilated Retinal E xam [facility] Start: 04-23-2024 Annual PCP Team Drafter Mechanical alana Disease Visit Annual PCP Team Chronic Disease Visit [facility] Start: 04-23-2024 BP Controlled (<130/80) BP Controlle d (<130/80) [facility] Start: 04-23-2024 Covid-19 Vaccine ( season) Covid-19 Vaccine () [facility] Comment on above: Postponed from 12/05 (Declined at this time) Start: 04-14-2024 Screening for malign ant neoplasm of breast Mammogram Screening [facility] Start: 01-22-2024 End: 01-22-2024 Patient encounter procedure 01/22/2024 4:00 PM EDT Office Visit [facility] [place] [address] [place] [address] Zach Garcia MD [address] [place] [address] 3 mo follow up [facility] [place] Comment on above: 3 mo follow up Start: 01-15-2024 End: 01-15-2024 Patient encounter procedure 01/15/2024 4:00 PM EDT Office Visit [facility] [place] [address] [place] [address] Zach Garcia MD [address] [place], [place] [id number] 3 month follow-up [facility] [place] Comment on above: 3 month follow-up Start: 01-12-2024 End: 04-12-2024 Basic metabolic 2000 panel - Serum or Plasma BASIC METABOLIC PANEL Lab Routine Type 2 diabetes mellitus with diabetic neuropathy, without long-term current use of insulin (HCC) Expected: 01/12/2024, Expires: 04/12/2024 [facility] Comment on above: Expected: 01/12/2024 , Expires: 04/12/2024 Start: 01-12-2024 End: 04-12-2024 Hemoglobin A1c in Blood HEMOGLOBIN A1C Lab Routine Type 2 diabetes mellitus with diabetic neuropathy, without long-term current use of insulin (HCC) Expected: 01/12/2024, Expires: 04/12/2024 [facility] Comment on above: Expected: 01/12/2024 , Expires: 04/12/2024 Start: 12-06-2023 Covid-19 Vaccine ( season) Covid-19 Vaccine () [facility] Start: 12-06-2023 Influenza vaccination Influenza Vacc ine (#1) [facility] Start: 10-20-2023 Hemoglobin A1c measurement HbA1C [facility] Start: 10-12-2023 End: 10-12-2023 Patient encounter procedure 10/12/2023 4:40 PM EDT Office Visit [facility] [place] [address] [place] [address] Zach Garcia MD [address] [place] [address] DM follow-up [facility] [place] Comment on above: DM follow-up Start: 10-12-2023 End: 01-11-2024 Microalbumin/Creatinine [Mass Ratio] in Urine ALBUMIN/CREATININE RATIO, URINE Lab Routine Type 2 diabetes mellitus with diabetic neuropathy, without long-term current use of insulin (HCC) Expected: 10/12/2023, Expires: 01/11/2024 [facility] Work Phone: Comment on above: Expected: 10/12/2023 , Expires: 01/11/2024 Start: 09-25-2023 ANNUAL PCP TEAM WARP HANGER ALANA DISEASE VISIT ANNUAL PCP TEAM CHRONIC DISEASE VISIT [facility] Start: 09-25-2023 BP CONTROLLED (<130/80) BP CONTROLLE D (<130/80) [facility] Start: 09-25-2023 COVID-19 VACCINE (4 - Booster for Pfizer series) COVID-19 VACCINE (4 - Booster for Pfizer series) [facility] Comment on above: Postponed from 06/08 (Declined at this time) Start: 09-25-2023 Covid-19 Vaccine (4 - Pfizer risk series) Covid-19 Vaccine (4 - Pfizer risk series) [facility] Comment on above: Postponed from 06/08 (Declined at this time) Start: 09-02-2023 End: 09-02-2023 Patient encounter procedure 09/02/2023 4:00 PM EDT Office Visit [facility] [place] [address] [place], [place] [id number] Cecilia [place], REINFORCING 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.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 [address] [place], [place] [id number] Yearly w/4 month follow-up [facility] [place] Comment on above: Yearly w/4 month fol low-up Start: 08-14-2023 3 comp foot exam completed DIABETIC FOOT EXAM [facility] Start: 08-14-2023 ANNUAL PCP TEAM WARP HANGER ALANA DISEASE VISIT ANNUAL PCP TEAM CHRONIC DISEASE VISIT [facility] Start: 08-14-2023 BP CONTROLLED (<130/80) BP CONTROLLE D (<130/80) [facility] Start: 08-14-2023 Diabetic foot examination Diabetic Foot Exam [facility] Start: 08-14-2023 Hepatitis B screening URINE ALBUMIN:CREATININE RATIO [facility] Start: 08-14-2023 Hepatitis B surface antibody level LDL CHOLESTEROL [facility] Start: 12-25-2022 End: 02-24-2023 Basic metabolic 2000 panel - Serum or Plasma BASIC METABOLIC PNL Lab Routine Type 2 diabetes mellitus with diabetic neuropathy, without long-term current use of insulin (HCC) Expected: 12/25/2022, Expires: 02/24/2023 [facility] Work Phone: Comment on above: Expected: 12/25/2022 , Expires: 02/24/2023 Start: 12-25-2022 End: 02-24-2023 Hemoglobin A1c in Blood HGB A1C Lab Routine Type 2 diabetes mellitus with diabetic neuropathy, without long-term current use of insulin (HCC) Expected: 12/25/2022, Expires: 02/24/2023 [facility] Work Phone: Comment on above: Expected: 12/25/2022 , Expires: 02/24/2023 Start: 12-25-2022 End: 02-24-2023 Lipid 1996 panel - Serum or Plasma LIPID PANEL BASIC Lab Routine Type 2 diabetes mellitus with diabetic neuropathy, without long-term current use of insulin (HCC) Expected: 12/25/2022, Expires: 02/24/2023 [facility] Work Phone: Comment on above: Expected: 12/25/2022 , Expires: 02/24/2023 Start: 12-05-2022 Influenza vaccination [facility] Start: 11-13-2022 Hemoglobin A1c/Hemoglobin.total in Blood HBA1C [facility] Start: 09-13-2022 ANNUAL PCP TEAM WARP HANGER ALANA DISEASE VISIT ANNUAL PCP TEAM CHRONIC DISEASE VISIT [facility] Start: 09-13-2022 BP CONTROLLED (<130/80) BP CONTROLLE D (<130/80) [facility] Start: 09-13-2022 Hepatitis B screening URINE ALBUMIN:CREATININE RATIO [facility] Start: 07-08-2022 ANNUAL PCP TEAM WARP HANGER ALANA DISEASE VISIT ANNUAL PCP TEAM CHRONIC DISEASE VISIT [facility] Start: 07-08-2022 BP CONTROLLED (<130/80) BP CONTROLLE D (<130/80) [facility] Start: 05-31-2022 Glaucoma screening Dilated Retinal E xam [facility] Start: 05-31-2022 Hepatitis C antibody , confirmatory test DILATED RETINAL EXAM [facility] Start: 03-15-2022 End: 05-15-2022 CBC panel - Blood by Automated count CBC Lab Routine Essential hypertension Expected: 03/15/2022, Expires: 05/15/2022 [facility] Work Phone: Comment on above: Expected: 03/15/2022 , Expires: 05/15/2022 Start: 03-15-2022 End: 05-15-2022 Comprehensive metabolic 2000 panel - Serum or Plasma COMP METABOLIC PANEL Lab Routine Type 2 diabetes mellitus with diabetic neuropathy, without long-term current use of insulin (HCC) Expected: 03/15/2022, Expires: 05/15/2022 [facility] Work Phone: Comment on above: Expected: 03/15/2022 , Expires: 05/15/2022 Start: 03-15-2022 End: 05-15-2022 Hemoglobin A1c in Blood HGB A1C Lab Routine Type 2 diabetes mellitus with diabetic neuropathy, without long-term current use of insulin (HCC) Expected: 03/15/2022, Expires: 05/15/2022 [facility] Work Phone: Comment on above: Expected: 03/15/2022 , Expires: 05/15/2022 Start: 03-15-2022 End: 05-15-2022 Lipid 1996 panel - Serum or Plasma LIPID PANEL BASIC Lab Routine Type 2 diabetes mellitus with diabetic neuropathy, without long-term current use of insulin (HCC) Expected: 03/15/2022, Expires: 05/15/2022 [facility] Work Phone: Comment on above: Expected: 03/15/2022 , Expires: 05/15/2022 Start: 03-14-2022 Hemoglobin A1c/Hemoglobin.total in Blood HBA1C [facility] Start: 03-11-2022 3 comp foot exam completed DIABETIC FOOT EXAM [facility] Start: 03-09-2022 Hepatitis B surface antibody level LDL CHOLESTEROL [facility] Start: 12-05-2021 Influenza vaccination INFLUENZA (#1) [facility] Start: 11-14-2021 Mammography [facility] Start: 08-18-2021 Hemoglobin A1c/Hemoglobin.total in Blood HBA1C [facility] Start: 07-12-2021 COVID-19 VACCINE (4 - Booster for Pfizer series) COVID-19 VACCINE (4 - Booster for Pfizer series) [facility] Start: 07-08-2021 End: 09-07-2021 CBC W Auto Differential panel - Blood [facility] Work Phone: Comment on above: Expected: 07/08/2021 , Expires: 09/07/2021 Start: 07-08-2021 End: 09-07-2021 Comprehensive metabolic 2000 panel - Serum or Plasma [facility] Work Phone: Comment on above: Expected: 07/08/2021 , Expires: 09/07/2021 Start: 07-06-2021 COVID-19 VACCINE (4 - Booster for Pfizer series) COVID-19 VACCINE (4 - Booster for Pfizer series) [facility] Start: 06-08-2021 COVID-19 VACCINE (4 - Booster for Pfizer series) COVID-19 VACCINE (4 - Booster for Pfizer series) [facility] Start: 01-28-2021 VIRFUVCEDRIC, Provider : Jessica Lim, Status: Pen, Time: 4:00 PM VIRFUVCEDRIC, Provider: Jessica Lim, Status: Pen, Time: 4:00 PM [facility] Work Phone: Start: 01-17-2021 VIRFUCLAYTON, Provider : Jessica Lim, Status: Pen, Time: 4:00 PM VIRFUVKATIEE, Provider: Jessica Lim, Status: Pen, Time: 4:00 PM [facility] 4[facility] Work Phone: Start: 10-20-2020 Hepatitis C antibody , confirmatory test DILATED RETINAL EXAM [facility] Start: 07-19-2020 Hepatitis B screening URINE ALBUMIN:CREATININE RATIO [facility] Start: 2019 RSV Vaccine (1 - 1-d ose 60+ series) RSV Vaccine (1 - 1-dose 60+ series) [facility] Start: 07-08-2016 Screening for malign ant neoplasm of colon Sigmoidoscopy [facility] Start: 07-08-2016 SIGMOIDOSCOPY SIGMOIDOSCOPY [facility] Start: 05-28-2012 PNEUMOCOCCAL (2 - PCV) PNEUMOCOCCAL (2 - PCV) [facility] Start: 11-01-2004 COLOGUARD (FIT-DNA) COLOGUARD (FIT-D NA) [facility] Start: 11-01-[address] COLONOGRAPHY [facility] Start: 11-01-2004 FECAL OCCULT BLOOD FECAL OCCULT BLOO D [facility] Start: 11-01-2004 Screening for malign ant neoplasm of colon [facility] Start: 11-01-1977 Anxiety Screening Anxiety Screening [facility] Start: 11-01-1977 SPIROMETRY SPIROMETRY [facility] End: 10-13-2022 GABO SCREENING W PRAVEENA GABO SCREENING [facility] Radiology Routine Encounter for screening mammogram for malignant neoplasm of breast 1 Occurrences starting 09/13/2021 until 10/13/2022 [facility] Work Phone: Comment on above: 1 Occurrences starti ng 09/13/2021 until 10/13/2022 End: 09-12-2023 GABO SCREENING W PRAVEENA GABO SCREENING [facility] Radiology Routine Encounter for screening mammogram for breast cancer 1 Occurrences starting 08/13/2022 until 09/12/2023 [facility] Work Phone: Comment on above: 1 Occurrences starti ng 08/13/2022 until 09/12/2023 End: 10-24-2023 GABO SCREENING W PRAVEENA GABO SCREENING [facility] Radiology Routine Encounter for screening mammogram for malignant neoplasm of breast 1 Occurrences starting 09/24/2022 until 10/24/2023 [facility] Work Phone: Comment on above: 1 Occurrences starti ng 09/24/2022 until 10/24/2023 [facility] Immunizations Immunization Date Immunization Notes Care Provider Fa cili 01-29-2023 influenza, injectabl e, quadrivalent, preservative free Zach Garcia MD Work Phone: [facility] Work Phone: 01-29-2023 influenza virus vacc ine, unspecified formulation Zach Garcia MD Work Phone: [facility] 11-25-2022 Hepatitis B vaccine (recombinant), CpG adjuvanted Zach Garcia MD Work Phone: [facility] 09-24-2022 pneumococcal Conjuga te, unspecified formulation Zach Garcia MD Work Phone: [facility] Work Phone: 09-24-2022 pneumococcal (PCV20) vaccine, 20 valent (PREVNAR 20) Zach Garcia MD Work Phone: [facility] Work Phone: 06-16-2022 Hepatitis B vaccine (recombinant), CpG adjuvanted Zach Garcia MD Work Phone: [facility] Work Phone: 04-13-2021 COVID-19 original vaccine, age 12+ yr, monovalent (PFIZER-BIONTECH - PURPLE TOP) Zach Garcia MD Work Phone: [facility] Work Phone: 03-11-2021 influenza, injectabl e, quadrivalent, contains preservative Jennifer Varghese REINFORCING ROD LAYER.FOCUS PULLER Work Phone: [facility] Work Phone: 03-11-2021 influenza virus vacc ine, unspecified formulation Zach Garcia MD Work Phone: [facility] 2020 zoster vaccine recombinant Jennifer Varghese REINFORCING ROD LAYER.FOCUS PULLER Work Phone: [facility] Work Phone: 09-01-2020 zoster vaccine recombinant Jennifer Varghese REINFORCING ROD LAYER.FOCUS PULLER Work Phone: [facility] Work Phone: 07-31-2020 COVID-19 vaccine, ag e 12+ yr (PFIZER-BIONTECH - PURPLE TOP) Jennifer Avendanos REINFORCING ROD LAYER.FOCUS PULLER Work Phone: [facility] Work Phone: 06-28-2020 COVID-19 vaccine, ag e 12+ yr (PFIZER-BIONTECH - PURPLE TOP) Jennifer Varghese REINFORCING ROD LAYER.FOCUS PULLER Work Phone: [facility] Work Phone: 03-05-2020 influenza, seasonal, injectable Jennifer Varghese REINFORCING ROD LAYER.FOCUS PULLER Work Phone: [facility] Work Phone: 01-17-2019 influenza, injectabl e, quadrivalent, contains preservative Jennifer Varghese REINFORCING ROD LAYER.FOCUS PULLER Work Phone: [facility] Work Phone: 06-01-2018 tetanus and diphther ia toxoids, adsorbed, preservative free, for adult use (5 Lf of tetanus toxoid and 2 Lf of diphtheria toxoid) Jennifer Varghese REINFORCING ROD LAYER.FOCUS PULLER Work Phone: [facility] Work Phone: 03-09-2018 influenza, injectabl e, quadrivalent, contains preservative Jennifer Varghese REINFORCING ROD LAYER.FOCUS PULLER Work Phone: [facility] Work Phone: 02-23-2017 influenza, injectabl e, quadrivalent, contains preservative Jennifer Varghese REINFORCING ROD LAYER.FOCUS PULLER Work Phone: [facility] 02-04-2016 influenza, injectabl e, quadrivalent, contains preservative Jennifer Varghese REINFORCING ROD LAYER.FOCUS PULLER Work Phone: [facility] 01-04-2015 influenza, seasonal, injectable Jennifer Varghese REINFORCING ROD LAYER.FOCUS PULLER Work Phone: [facility] 01-05-2014 influenza virus vacc ine, unspecified formulation Jennifer Varghese REINFORCING ROD LAYER.FOCUS PULLER Work Phone: [facility] 01-19-2013 influenza virus vacc ine, unspecified formulation Jennifer Vargehse REINFORCING ROD LAYER.FOCUS PULLER Work Phone: [facility] 02-23-2012 influenza virus vacc ine, unspecified formulation Jennifer Varghese REINFORCING ROD LAYER.FOCUS PULLER Work Phone: [facility] Work Phone: 05-28-2011 pneumococcal polysaccharide vaccine, 23 valent Jennifer Varghese REINFORCING ROD LAYER.FOCUS PULLER Work Phone: [facility] Work Phone: 03-16-2011 influenza virus vacc ine, unspecified formulation Jennifer Varghese REINFORCING ROD LAYER.FOCUS PULLER Work Phone: [facility] Work Phone: 05-26-2008 tetanus toxoid, redu natalie diphtheria toxoid, and acellular pertussis vaccine, adsorbed Jennifer Varghese REINFORCING ROD LAYER.FOCUS PULLER Work Phone: [facility] Work Phone: Payers Date Payer Category Payer Private Health Insurance ARLEY Beckwith LISA [facility] Recordant [id number] 2022-Present [phone] [address] [place] [address] PPO [id number] 2022 Private Health Insurance [id number] 2021 Unknown 2021 Unknown ABRAHAM ANGIE KAY PPO [id number] 2021-Present [phone] [address] [place] [address] PPO [id number] 2017 Private Health Insurance [id number] 1960 Unknown [id number] 1960 Unknown [id number] Unknown [id number] Social History Date Type Detail Facility Start: 02-24-2011 End: 08-13-2022 Non-smoker Non-smoker [facility] Start: 02-24-2011 End: 08-13-2022 Tobacco smoking status ALIS Ex-smoker [facility] Work Phone: Start: 04-26-1983 End: 04-26-2003 History of tobacco use Current smoker [facility] Work Phone: Start: 04-26-1983 End: 04-26-2003 History of tobacco use Cigarette Smoker [facility] Work Phone: Start: 02-24-2011 End: 08-13-2022 Tobacco use and exposure Smokeless tobacco non-user [facility] Work Phone: Start: 07-08-2021 End: 10-12-2023 Alcohol intake Current non-drinker of alcohol (finding) [facility] Start: 04-26-2020 History SDOH Stress 2 [facility] Start: 04-26-2020 History SDOH Housing Unable to Pay 3 [facility] Start: 04-26-2020 History SDOH Housing Places Lived 1 [facility] Start: 1960 Sex Assigned At Not on file C [facility] Start: 06-28-2021 End: 09-13-2021 Exposure to SARS-CoV-2 (event) Not sure [facility] Work Phone: Start: 04-26-2020 End: 08-13-2022 Social connection and isolation panel [facility] In a typical week, h ow many times do you talk on the telephone with family, friends, or neighbors? Patient refused [facility] Are you now , , , , never or living with a partner? Refused [facility] Do you feel stress - tense, restless, nervous, or anxious, or unable to sleep at night because your mind is troubled all the time - these days [OSQ] Only a little [facility] (I/We) worried wheth er (my/our) food would run out before (I/we) got money to buy more. DK or Refused [facility] Do you belong to any clubs or organizations such as bahai groups, unions, fraternal or athletic groups, or school groups? No [facility] Are you now , , , , never or living with a partner? [facility] Do you feel stress - tense, restless, nervous, or anxious, or unable to sleep at night because your mind is troubled all the time - these days [OSQ] To some extent [facility] (I/We) worried wheth er (my/our) food would run out before (I/we) got money to buy more. Never true [facility] Medical Equipment Procedure Code Equipment Code Equipment Original Text Equipment Identifier Dates [id number], [id number], [id number] Start: 04-05-2020 End: 10-12-2023 Comment on above: Use as instructed Test blood sugar onc e daily. Dx: E11.9. Insulin: No Test once daily. Dx: E11.40. No insulin. Clinical Notes 06-05-2019 to 01-07-2024 Telephone Encounter - Zach Garcia MD - 01/07/2024 11:10 PM EDTTelephone Encounter - Zach Garcia MD - 01/07/2024 11:10 PM EDTZach Garcia MD - 10/12/2023 4:55 PM EDT Note Date & Type Note Facility 01-07-2024 Telephone encounter Note The following approved medication requests have been transmitted electronically. Requested Prescriptions Signed Prescriptions Disp Refills amitriptyline (ELAVIL) 75 mg tablet 90 tablet 1 Sig: Take 1 tablet by mouth daily at bedtime. Authorizing Provider: ZACH GARCIA MD [facility] 01-07-2024 Miscellaneous Notes The following approved medication requests have been transmitted electronically. Requested Prescriptions Signed Prescriptions Disp Refills amitriptyline (ELAVIL) 75 mg tablet 90 tablet 1 Sig: Take 1 tablet by mouth daily at bedtime. Authorizing Provider: ZACH GARCIA MD TC to pt. Med marked d/c at last OV 10/11. Patient states that this was never discontinued and has been taking this. Please review and sent to [facility] Patient requesting medication that is : Patient last seen 10-12-23 Future appointment scheduled: yes PHARMACY: [facility] documented in this encounter [facility] 01-07-2024 Telephone encounter Note TC to pt. Med marked d/c at last OV 10/11. Patient states that this was never discontinued and has been taking this. Please review and sent to [facility] 01-07-2024 Telephone encounter Note Patient requesting medication that is : Patient last seen 10-12-23 Future appointment scheduled: yes PHARMACY: [facility] 01-07-2024 Telephone encounter Note Prescription Refill Information The patient has been identified by name and date of : Yes Caregiver verified no other encounters exist for this prescription request: Yes Caregiver confirmed with patient/requestor that no other refills are due, in the near future, with this provider at this time: Yes The last office visit in the department: 10-12-23 Does the patient have a future office visit with this provider/department: Yes Requested Prescriptions Pending Prescriptions Disp Refills omeprazole (PRILOSEC) 40 mg capsule 90 capsule 3 Sig: Take 1 capsule by mouth once daily. montelukast (SINGULAIR) 10 mg tablet 90 tablet 3 Sig: Take 1 tablet by mouth daily at bedtime. atorvastatin (LIPITOR) 10 mg tablet 90 tablet 3 Sig: Take 1 tablet by mouth daily at bedtime. For cholesterol. potassium chloride SR (MICRO-K) 8 mEq cpER 90 capsule 3 Sig: Take 1 capsule by mouth daily with breakfast. Shane Bruno January 07, 2024 9:50 AM [facility] 01-07-2024 Miscellaneous Notes Prescription Refill Information The patient has been identified by name and date of : Yes Caregiver verified no other encounters exist for this prescription request: Yes Caregiver confirmed with patient/requestor that no other refills are due, in the near future, with this provider at this time: Yes The last office visit in the department: 10-12-23 Does the patient have a future office visit with this provider/department: Yes Requested Prescriptions Pending Prescriptions Disp Refills omeprazole (PRILOSEC) 40 mg capsule 90 capsule 3 Sig: Take 1 capsule by mouth once daily. montelukast (SINGULAIR) 10 mg tablet 90 tablet 3 Sig: Take 1 tablet by mouth daily at bedtime. atorvastatin (LIPITOR) 10 mg tablet 90 tablet 3 Sig: Take 1 tablet by mouth daily at bedtime. For cholesterol. potassium chloride SR (MICRO-K) 8 mEq cpER 90 capsule 3 Sig: Take 1 capsule by mouth daily with breakfast. Shane Bruno January 07, 2024 9:50 AM documented in this encounter [facility] 10-21-2023 Telephone encounter Note Spoke with patient. Given message from provider's office. Patient verbalizes understanding. Neil Griffin RN [facility] 10-21-2023 Miscellaneous Notes Spoke with patient. Given message from provider's office. Patient verbalizes understanding. Neil Griffin RN Phoned patient left message to return call and ask to speak to a nurse. Mild elevation of microalbuminuria. Recheck in 6 months. Pt completed urine View External Labs - urine microalb;cre [ID [id number]] documented in this encounter [facility] 10-21-2023 Telephone encounter Note Phoned patient left message to return call and ask to speak to a nurse. [facility] 10-21-2023 Telephone encounter Note Mild elevation of microalbuminuria. Recheck in 6 months. [facility] 10-19-2023 Telephone encounter Note Pt completed urine View External Labs - urine microalb;cre [ID [id number]] [facility] 10-12-2023 Note HNO ID: [id number] Author: ZACH GARCIA MD Service: ? Author Type: Physician Type: Progress Notes Filed: 10/12/2023 17:26 Note Text: This note was created using SpanDeXriter. Subjective Patient presents with: Follow Up Shane Rodriguez is a 62 year old female. Diabetes was closer to goal. Her weight loss stopped last year on Jardiance, and her weight was coming back up. Her asthma and hypertension were controlled. Depression was worse, and she was scheduled to see Dr. Crispin Bustillos for psychiatry. She was being treated at the [facility] for toenail fungus (topical). Review of Systems Constitutional: Positive for unexpected weight change. Negative for appetite change, fatigue and fever. Respiratory: Negative for choking and shortness of breath. Cardiovascular: Negative for chest pain, palpitations and leg swelling. Gastrointestinal: Negative for abdominal pain, diarrhea, nausea and vomiting. Genitourinary: Negative for difficulty urinating. Neurological: Negative for dizziness and headaches. ACTIVE [...] use: No Current Outpatient Medications Medication Sig glipiZIDE (GLUCOTROL XL) 10mg 24 hr tablet Take 1 tablet by mouth once daily. folic acid 1 mg tablet Take 2 tablets by mouth once daily. empagliflozin (JARDIANCE) 25 mg tablet Take 1 tablet by mouth once daily. Take 1 tablet once daily in the morning nystatin (MYCOSTATIN) 100,000 unit/mL suspension Take 5 mL by mouth four times daily for 7 days. Swish several minutes, then swallow. Repeat as needed. lisinopril (ZESTRIL) 5 mg tablet Take 1 [...] capsule by mouth daily with breakfast. lancets (KlikkaPromo LANCETS) 30 gauge Test blood sugar once daily. Dx: E11.9. Insulin: No fluticasone-vilanterol (BREO ELLIPTA) 200-25 mcg/dose inhaler Inhale 1 Inhalation as instructed once daily. ustekinumab (STELARA) 130 mg/26 mL injection albuterol HFA (PROVENTIL HFA, VENTOLIN HFA) 90 mcg/actuation inhaler Inhale 2 Puffs as instructed every 4 hours as needed for Wheezing/Shortness of Breath. fluticasone (FLONASE) 50 mcg/actuation nasal spray Use 1 Mcgregor in each nostril once daily. multivitamin tablet Take 1 tablet by mouth once daily. hyoscyamine sublingual (LEVSIN SL) 0.125 mg Dissolve 0.125 mg under the tongue every 4 hours as needed (2-4 times as needed). (Patient not taking: Reported on 10/12/2023) No current facility-administered medications for this visit. Objective BP 128/64 (BP Site: Left Arm, BP Position: Sitting, BP Cuff Size: Large Adult) Pulse 84 Temp 37.1 ?C (98.8 ?F) (Temporal) Resp 16 Wt 83.9 kg (185 lb) BMI 31.20 kg/m? Physical Exam Constitutional: General: She is not in acute distress. Appearance: She is not ill-appearing. HENT: Head: Normocephalic. Eyes: General: No scleral icterus. Conjunctiva/sclera: Conjunctivae normal. Cardiovascular: Rate and Rhythm: Normal rate and regular rhythm. Pulses: Normal pulses. Heart sounds: No murmur heard. No gallop. Pulmonary: Breath sounds: Normal breath sounds. Musculoskeletal: Right lower leg: No edema. Left lower leg: No edema. Neurological: Mental Status: She is alert. Feet:Shoes and socks removed, No deformities, ulcers, calluses, and not sensitive to monofilament in some toes. RIght big toe nail removed. Nails with hypertrophy. Assessment and Plan 1. Type 2 diabetes mellitus with diabetic neuropathy, without long-term current use of insulin (HCC) - ICD9: 250.60, 357.2, ICD10: E11.40 (primary diagnosis) - Improving control - Continue current medications - Start dulaglutide (Trulicity) - ALBUMIN/CREATININE RATIO, URINE - DULAGLUTIDE 0.75 MG/0.5 ML SUBCUTANEOUS PEN INJECTOR - BASIC METABOLIC PANEL - HEMOGLOBIN A1C - LANCETS - Patient successfully used a demonstration pen for dulaglutide. 2. Essential hypertension - ICD9: 401.9, ICD10: I10 - Controlled - Continue current medica (more content not included)... [facility] 10-12-2023 History of Present illness Narrative This note was created using NoteWriter. Subjective Patient presents with: Follow Up Shane Rodriguez is a 62 year old female. Diabetes was closer to goal. Her weight loss stopped last year on Jardiance, and her weight was coming back up. Her asthma and hypertension were controlled. Depression was worse, and she was scheduled to see Dr. Crispin Bustillos for psychiatry. She was being treated at the [facility] for toenail fungus (topical). Review of Systems Constitutional: Positive for unexpected weight change. Negative for appetite change, fatigue and fever. Respiratory: Negative for choking and shortness of breath. Cardiovascular: Negative for chest pain, palpitations and leg swelling. Gastrointestinal: Negative for abdominal pain, diarrhea, nausea and vomiting. Genitourinary: Negative for difficulty urinating. Neurological: Negative for dizziness and headaches. ACTIVE [...] use: No Current Outpatient Medications Medication Sig glipiZIDE (GLUCOTROL XL) 10mg 24 hr tablet Take 1 tablet by mouth once daily. folic acid 1 mg tablet Take 2 tablets by mouth once daily. empagliflozin (JARDIANCE) 25 mg tablet Take 1 tablet by mouth once daily. Take 1 tablet once daily in the morning nystatin (MYCOSTATIN) 100,000 unit/mL suspension Take 5 mL by mouth four times daily for 7 days. Swish several minutes, then swallow. Repeat as needed. lisinopril (ZESTRIL) 5 mg tablet Take 1 [...] capsule by mouth daily with breakfast. lancets (KlikkaPromo LANCETS) 30 gauge Test blood sugar once daily. Dx: E11.9. Insulin: No fluticasone-vilanterol (BREO ELLIPTA) 200-25 mcg/dose inhaler Inhale 1 Inhalation as instructed once daily. ustekinumab (STELARA) 130 mg/26 mL injection albuterol HFA (PROVENTIL HFA, VENTOLIN HFA) 90 mcg/actuation inhaler Inhale 2 Puffs as instructed every 4 hours as needed for Wheezing/Shortness of Breath. fluticasone (FLONASE) 50 mcg/actuation nasal spray Use 1 Mcgregor in each nostril once daily. multivitamin tablet Take 1 tablet by mouth once daily. hyoscyamine sublingual (LEVSIN SL) 0.125 mg Dissolve 0.125 mg under the tongue every 4 hours as needed (2-4 times as needed). (Patient not taking: Reported on 10/12/2023) No current facility-administered medications for this visit. Objective BP 128/64 (BP Site: Left Arm, BP Position: Sitting, BP Cuff Size: Large Adult) Pulse 84 Temp 37.1 C (98.8 F) (Temporal) Resp 16 Wt 83.9 kg (185 lb) BMI 31.20 kg/m Physical Exam Constitutional: General: She is not in acute distress. Appearance: She is not ill-appearing. HENT: Head: Normocephalic. Eyes: General: No scleral icterus. Conjunctiva/sclera: Conjunctivae normal. Cardiovascular: Rate and Rhythm: Normal rate and regular rhythm. Pulses: Normal pulses. Heart sounds: No murmur heard. No gallop. Pulmonary: Breath sounds: Normal breath sounds. Musculoskeletal: Right lower leg: No edema. Left lower leg: No edema. Neurological: Mental Status: She is alert. Feet:Shoes and socks removed, No deformities, ulcers, calluses, and not sensitive to monofilament in some toes. RIght big toe nail removed. Nails with hypertrophy. Assessment and Plan 1. Type 2 diabetes mellitus with diabetic neuropathy, without long-term current use of insulin (HCC) - ICD9: 250.60, 357.2, ICD10: E11.40 (primary diagnosis) - Improving control - Continue current medications - Start dulaglutide (Trulicity) - ALBUMIN/CREATININE RATIO, URINE - DULAGLUTIDE 0.75 MG/0.5 ML SUBCUTANEOUS PEN INJECTOR - BASIC METABOLIC PANEL - HEMOGLOBIN A1C - LANCJUANI - Patient successfully used a demonstration pen for dulaglutide. 2. Essential hypertension - ICD9: 401.9, ICD10: I10 - Controlled - Continue current medications 3. Depressive disorder - ICD9: 311, ICD10: F32.A - Seeing Dr. Bustillos. 4. Moderate persistent asthma without complication - ICD9: 493.90, ICD10: J45.40 - Stable. - Continue current medications 5. Obesity (BMI 30-39.9) - ICD9: 278.00, ICD10: E66.9 Weight increasing - Behavioral intervention Zach Garcia MD documented in this encounter [facility] 10-06-2023 Telephone encounter Note Called & spoke to shayna Nelsont. Scheduled. Deneen Reeder LPN [facility] 10-06-2023 Miscellaneous Notes Called & spoke to Shane appt. Scheduled. Deneen Reeder LPN She needs regular follow up for diabetes mellitus. Patient last seen 09/02/2023, A1C 7.2 on 08/29/2023, weight 186. BMI 31.40. Do you want to see Patient in the office to discuss, please advise. Deneen Reeder LPN Shane is calling Zach Garcia MD today with concern regarding phone call Patient asking for a nurse to return call. Patient wanting to discuss insulin to lose weight. Patient has been identified by name and birthdate. Duration of symptoms: N/A Person calling: self Call patient at: on cell [phone] (home) [phone] (cell) Was an appointment scheduled: No Closing statement: Results or non-symptom based questions: Thank you for calling [facility], your call will be returned within the next business day. Shane Bruno documented in this encounter [facility] 10-06-2023 Telephone encounter Note She needs regular follow up for diabetes mellitus. [facility] 10-06-2023 Telephone encounter Note Patient last seen 09/02/2023, A1C 7.2 on 08/29/2023, weight 186. BMI 31.40. Do you want to see Patient in the office to discuss, please advise. Deneen Reeder LPN [facility] 10-06-2023 Telephone encounter Note 09/02/2023 Patient advised to follow-up in 1 year. No appt scheduled. Deneen Reeder LPN [facility] 10-06-2023 Miscellaneous Notes 09/02/2023 Patient advised to follow-up in 1 year. No appt scheduled. Deneen Reeder LPN Patient has been identified by name and date of : Patient phones for refill(s): Requested Prescriptions Pending Prescriptions Disp Refills glipiZIDE XL (GLUCOTROL XL) 10 mg 24 hr tablet 90 tablet 3 Sig: Take 1 tablet by mouth once daily. folic acid 1 mg tablet 180 tablet 3 Sig: Take 2 tablets by mouth once daily. Date of last office visit in primary care: 04/23/2023 Date of next office visit in primary care: Visit date not found Please advise. Thank you. Shane Bruno. documented in this encounter [facility] 10-06-2023 Telephone encounter Note Shane is calling Zach Garcia MD today with concern regarding phone call Patient asking for a nurse to return call. Patient wanting to discuss insulin to lose weight. Patient has been identified by name and birthdate. Duration of symptoms: N/A Person calling: self Call patient at: on cell [phone] (home) [phone] (cell) Was an appointment scheduled: No Closing statement: Results or non-symptom based questions: Thank you for calling [facility], your call will be returned within the next business day. Shane Bruno [facility] 10-06-2023 Telephone encounter Note Patient has been identified by name and date of : Patient phones for refill(s): Requested Prescriptions Pending Prescriptions Disp Refills glipiZIDE XL (GLUCOTROL XL) 10 mg 24 hr tablet 90 tablet 3 Sig: Take 1 tablet by mouth once daily. folic acid 1 mg tablet 180 tablet 3 Sig: Take 2 tablets by mouth once daily. Date of last office visit in primary care: 04/23/2023 Date of next office visit in primary care: Visit date not found Please advise. Thank you. Shane Bruno. [facility] 09-02-2023 Instructions Cecilia Washington APRN.CNP - 09/02/2023 4:07 PM EDT GLP-1 agonists : Iman Piedra Mounjaro, Wegovy, Victoza, Byetta documented in this encounter [facility] 09-02-2023 Note HNO ID: [id number] Author: CECILIA WASHINGTON APRN.CNP Service: ? Author Type: Nurse Practitioner Type: Progress Notes Filed: 09/02/2023 16:40 Note Text: Chief Complaint Patient presents with: yearly HPI Shane Rodriguez is a 62 year old female who presents here today for Above Complaints. Shane is an established patient of Dr. Chaka MD. She is a new patient to me today. Concerns today... HTN -- She states compliant with current blood pressure medication(s): lisinopril 5 mg daily. She does check BP at home occasionally but not frequently. WNL at home when she does check it. She denies chest pain, shortness of breath, palpitations, dizziness, leg edema, headaches, or vision changes. Last 14 Encounter BP Readings: Date: BP: 09/02/2023 122/60 04/23/2023 128/70 01/07/2023 126/76 09/24/2022 118/58 08/13/2022 128/68 09/13/2021 120/60 07/08/2021 132/72 05/02/2021 132/64 03/11/2021 127/71 01/21/2021 140/88 03/08/2020 136/68 12/05/2019 121/66 11/22/2019 116/66 10/03/2019 142/70 DM-- Patient reports she is feeling well overall in regards to diabetes A1C 7.2% from 08/29/23 Patient's last HgA1C was 7.0 in April. Current regimen: glipizide 10 mg daily and jardiance 25 mg daily Tolerating well: Yes Med compliance: Yes Checking sugars: Yes, once daily in the morning. Sugars range: 150-210 Signs of hypoglycemia?: no Diet: admits to poor/worsening diet the last few months. Trying to eat dinner early but then ends up eating very late at night again. Denies polyuria, polydipsia, numbness, tingling or pain in extremities, new or unusual visual symptoms, unintended weight changes, lightheadedness/dizziness, bowel changes/loose stools, chest pain or dyspnea Last eye exam: June 2023, updated in chart. Pt asking about injectable medication for weight loss and diabetes and wondering if she would be a good candidate for this. HLD --- Lipitor 10 mg daily. Tolerating well. CBC, CMP, and lipid panel completed on 08/29/23 (in scanned documents) -- all WNL. Sleep and fibromyalgia -- Current Amitriptyline regimen works well. Chrons and UC -- Dr More is managing this. Has been dx since 1994 Stelara injections routinely GERD -- Taking Prilosec with good relief. HM -- mammogram and colon cancer screening are up-to-date Past medical history, appointments, medications, allergies reviewed. Previous Medical History PAST MEDICAL HISTORY Diagnosis Date Acute deep vein thrombosis (DVT) of tibial vein of left lower extremity (HCC) 08/10/2019 Cervicalgia 01/20/2006 Chronic cough 03/08/2020 COVID-19 virus infection 04/27/2020 Crohn disease ([facility]) 07/04/2011 Diabetes mellitus ([facility]) 11/20/2009 Diarrhea Esophageal reflux 05/26/2008 Fibromyalgia 03/22/2004 HYPERTENSION NOS 05/26/2008 Inflammatory polyarthropathies ([facility]) 05/28/2011 Irritable bowel syndrome 01/18/2010 Irritable bowel Moderate persistent asthma without complication 09/18/2020 OBESITY NOS 05/26/2008 Palpitations 11/20/2009 Type 2 diabetes mellitus with diabetic neuropathy, without long-term current use of insulin ([facility]) 02/27/2016 Type II or unspecified type diabetes mellitus without mention of complication, not stated as uncontrolled 2009 Previous Surgical History PAST SURGICAL HISTORY Procedure Laterality Date ARTHRP [...] NEUROPLASTY AND/TRANSPOS MEDIAN NRV CARPAL TUNNE Left 2009 Carpal tunnel decomp PAST SURGICAL HISTORY OF 07/10/2004 debridement, felon, right index finger SIGMOIDOSCOPY FLX DX W/COLLJ SPEC BR/WA IF PFRMD 07/09/2011 Sigmoidoscopy, flexible TOTAL KNEE REPLACEMENT Left 07/26/2021 VAGINAL HYSTERECTOMY UTERUS 250 GM/< 03/15/1996 Family History FAMILY HISTORY Problem Relation Age of Onset Breast Cancer Mother other (brain aneurysm) Mother Ischemic Heart Disease Father Hypertension Father Diabetes Brother COPD Brother Coronary Artery Disease Brother other (CVA) Maternal Grandmother Breast Cancer Maternal Aunt Ischemic Heart Disease Brother Diabetes Sister Patient Allergies ALLERGIES Allergen Reactions Doxycycline Monohyd* Hives, Swelling, Anaphylaxis Etodolac Rash, Swelling, Itching A (more content not included)... [facility] 09-02-2023 History of Present illness Narrative Chief Complaint Patient presents with: yearly HPI Shane Rodriguez is a 62 year old female who presents here today for Above Complaints. Shane is an established patient of Dr. Chaka MD. She is a new patient to me today. Concerns today... HTN -- She states compliant with current blood pressure medication(s): lisinopril 5 mg daily. She does check BP at home occasionally but not frequently. WNL at home when she does check it. She denies chest pain, shortness of breath, palpitations, dizziness, leg edema, headaches, or vision changes. Last 14 Encounter BP Readings: Date: BP: 09/02/2023 122/60 04/23/2023 128/70 01/07/2023 126/76 09/24/2022 118/58 08/13/2022 128/68 09/13/2021 120/60 07/08/2021 132/72 05/02/2021 132/64 03/11/2021 127/71 01/21/2021 140/88 03/08/2020 136/68 12/05/2019 121/66 11/22/2019 116/66 10/03/2019 142/70 DM-- Patient reports she is feeling well overall in regards to diabetes A1C 7.2% from 08/29/23 Patient's last HgA1C was 7.0 in April. Current regimen: glipizide 10 mg daily and jardiance 25 mg daily Tolerating well: Yes Med compliance: Yes Checking sugars: Yes, once daily in the morning. Sugars range: 150-210 Signs of hypoglycemia?: no Diet: admits to poor/worsening diet the last few months. Trying to eat dinner early but then ends up eating very late at night again. Denies polyuria, polydipsia, numbness, tingling or pain in extremities, new or unusual visual symptoms, unintended weight changes, lightheadedness/dizziness, bowel changes/loose stools, chest pain or dyspnea Last eye exam: June 2023, updated in chart. Pt asking about injectable medication for weight loss and diabetes and wondering if she would be a good candidate for this. HLD --- Lipitor 10 mg daily. Tolerating well. CBC, CMP, and lipid panel completed on 08/29/23 (in scanned documents) -- all WNL. Sleep and fibromyalgia -- Current Amitriptyline regimen works well. Chrons and UC -- Dr More is managing this. Has been dx since 1994 Stelara injections routinely GERD -- Taking Prilosec with good relief. HM -- mammogram and colon cancer screening are up-to-date Past medical history, appointments, medications, allergies reviewed. Previous Medical History PAST MEDICAL HISTORY Diagnosis Date Acute deep [...] without long-term current use of insulin (HCC) 02/27/2016 Type II or unspecified type diabetes mellitus without mention of complication, not stated as uncontrolled 2009 Previous Surgical History PAST SURGICAL HISTORY Procedure Laterality Date ARTHRP KNE CONDYLE&PLATU MEDIAL&LAT COMPARTMENTS Right 06/15/2017 CHOLECYSTECTOMY 09/13/1973 Cholecystectomy COLONOSCOPY 03/21/2018 COLONOSCOPY 10/27/2019 COLONOSCOPY 01/24/2021 Dr. Sarah Mroe COLONOSCOPY FLX DX W/COLLJ SPEC WHEN PFRMD [...] 07/26/2021 VAGINAL HYSTERECTOMY UTERUS 250 GM/< 03/15/1996 Family History FAMILY HISTORY Problem Relation Age of Onset Breast Cancer Mother other (brain aneurysm) Mother Ischemic Heart Disease Father Hypertension Father Diabetes Brother COPD Brother Coronary Artery Disease Brother other (CVA) Maternal Grandmother Breast Cancer Maternal Aunt Ischemic Heart Disease Brother Diabetes Sister Patient Allergies ALLERGIES Allergen Reactions Doxycycline Monohyd* Hives, Swelling, Anaphylaxis Etodolac Rash, Swelling, Itching Asulfazine [Sulfasa* Rash Cefdinir Rash Sulfa Dyne Rash Current Medications Current Outpatient Medications on File Prior to Visit Medication Sig hyoscyamine sublingual (LEVSIN SL) 0.125 mg Dissolve 0.125 mg under the tongue every 4 hours as needed (2-4 times as needed). empagliflozin (JARDIANCE) 25 mg tablet Take 1 tablet by mouth once daily. Take 1 tablet once daily in the morning amitriptyline (ELAVIL) 75 mg tablet Take 1 tablet by mouth daily at bedtime. lisinopril (ZESTRIL) 5 mg tablet Take 1 [...] 1 capsule by mouth daily with breakfast. folic acid 1 mg tablet Take 2 tablets by mouth once daily. glipiZIDE (GLUCOTROL XL) 10mg 24 hr tablet Take 1 tablet by mouth once daily. lancets (WorldStateTOUCH DELICA LANCETS) 30 gauge Test blood sugar once daily. Dx: E11.9. Insulin: No fluticasone-vilanterol (BREO ELLIPTA) 200-25 mcg/dose inhaler Inhale 1 Inhalation as instructed once daily. ustekinumab (STELARA) 130 mg/26 mL injection albuterol HFA (PROVENTIL HFA, VENTOLIN HFA) 90 mcg/actuation inhaler Inhale 2 Puffs as instructed every 4 hours as needed for Wheezing/Shortness of Breath. fluticasone (FLONASE) 50 mcg/actuation nasal spray Use 1 Mcgregor in each nostril once daily. Blood-Glucose Meter (The CloakroomUCH ULTRA2) monitoring kit Use as directed to test blood sugar (Patient taking differently: Use as directed to test blood sugar pt uses he reli on meter) multivitamin tablet Take 1 tablet by mouth once daily. nystatin (MYCOSTATIN) 100,000 unit/mL suspension Take 5 mL by mouth four times daily for 7 days. Swish several minutes, then swallow. Repeat as needed. blood sugar diagnostic (ONETOUCH ULTRA TEST) test strip Test once daily. Dx:E11.40. No insulin. No current facility-administered medications on file prior to visit. Social History Social History Tobacco Use Smoking status: Former Packs/day: 0.50 Years: 20.00 Additional pack years: 0.00 Total pack years: 10.00 Types: Cigarettes Quit date: 04/26/2003 Years since quittin.3 Smokeless tobacco: Never Vaping Use Vaping Use: Never used Substance Use Topics Alcohol use: No Drug use: No REVIEW OF SYSTEMS: as above Reviewed relevant PMHx, PSHx, Social Hx, current medications and allergies. Review of Symptoms REVIEW OF SYSTEMS See HPI. EXAM: BP 122/60 (BP Site: Left Arm, BP Position: Sitting, BP Cuff Size: Regular Adult) Pulse 88 Resp 14 Ht 164 cm (5' 4.57 ) Wt 84.5 kg (186 lb 3.2 oz) BMI 31.40 kg/m General Appearance: Well appearing, alert, in no acute distress, well-hydrated, well nourished.. Skin: Skin color, texture, turgor normal, no suspicious rashes or lesions. Head: Normocephalic, no masses, lesions, tenderness or abnormalities. Neck: Supple, no adenopathy; thyroid symmetric, normal size, no bruits. Back:no pain to palpation of vertebrae, good flexion and extension, good range of motion, no muscle tenderness, reflexes are 2+ and symmetric, motor and sensory appear to be normal, negative SLR test, no evidence of scoliosis Lungs: Lungs clear to auscultation. No wheezing, rhonchi, rales.. Heart: RRR without murmur, gallop, or rubs. No ectopy. Abdomen: Normal abdominal exam, Abdomen soft, non-tender. Bowel sounds normal. No masses, organomegaly. Extremities: No deformities, edema, skin discoloration, clubbing or cyanosis. Good capillary refill. . Musculoskeletal: No joint swelling, deformity, or tenderness. Peripheral Pulses: Normal. Neurologic: Gait normal. Reflexes normal and symmetric. Sensation grossly intact.. Health Maintenance List Urine Albumin:Creatinine Ratio due on 08/14/2023 LDL Cholesterol due on 08/14/2023 Diabetic Foot Exam due on 08/14/2023 Covid-19 Vaccine( season) due on 04/23/2024 RSV Vaccine(1 - 1-dose 60+ series) due on 09/01/2024 HbA1C due on 10/20/2023 Mammogram Screening due on 04/14/2024 Dilated Retinal Exam due on 06/21/2024 Annual PCP Team Chronic Disease Visit due on 09/01/2024 BP Controlled (<130/80) due on 09/01/2024 Colorectal Cancer Screening due on 11/04/2026 DTaP,Tdap,Td Vaccine(3 - Td or Tdap) due on 06/01/2028 Spirometry Completed Influenza Vaccine Completed Hepatitis C Screening Completed HIV Screening Completed Shingrix Vaccine Completed Pneumococcal Vaccine Completed Hepatitis B Vaccine Discontinued MMR Vaccine Discontinued Hepatitis A Vaccine Discontinued Pap Testing Discontinued HPV Testing Discontinued Meningococcal B Vaccine: Consider Based On Risk Discontinued ASSESSMENT/PLAN: 1. Well adult exam - ICD9: V70.0, ICD10: Z00.00 (primary diagnosis) - Counseled on healthy diet and regular exercise - Calcium intake with supplements or by diet of 1000 mg/day for under 50, 3365-3907 mg/day for 50+ - Discussed need and benefit for weight loss. BMI 31.40 kg/(m^2) - Follow up for annual exam in one year 2. Type 2 diabetes mellitus with diabetic neuropathy, without long-term current use of insulin (HCC) - ICD9: 250.60, 357.2, ICD10: E11.40 Slightly worsening control. Discussed possibility of GLP-1 agonist vs diet change. Pt needs to call insurance to discuss coverage of injectables-- wrote down medication examples to discuss. If covered, we can consider adding GLP-1 agonist. Will discuss if PCP team agreeable if needed. Continue current regimen for now and focus on diet control d/t mildly elevated hgA1c above goal. - EMPAGLIFLOZIN 25 MG TABLET 3. Essential hypertension - ICD9: 401.9, ICD10: I10 - Controlled - Continue current medications - Recommend home blood pressure monitoring, to bring results to next visit - Encouraged sodium restriction, DASH or Mediterranean diet - Recommend regular aerobic exercise 4. Fibromyalgia - ICD9: 729.1, ICD10: M79.7 Stable on current regimen. 5. Moderate persistent asthma without complication - ICD9: 493.90, ICD10: J45.40 Stable, no new symptoms. 6. Crohn's disease of colon without complication (HCC) - ICD9: 555.1, ICD10: K50.10 Stable on current regimen. Continue with Dr. More's recommendations. 7. Gastroesophageal reflux disease, unspecified whether esophagitis present - ICD9: 530.81, ICD10: K21.9 Stable. Continue on current regimen. - Discussed lifestyle modifications including losing weight, limiting caffeine, no meals three hours before sleep, and head of bed elevation 8. Hyperlipidemia, unspecified hyperlipidemia type - ICD9: 272.4, ICD10: E78.5 - Controlled RTO annually and as needed. Prescription instructions reviewed with patient as applicable. Potential red flag symptoms discussed with the patient. Reviewed appropriate action plan to take if red flag symptoms occur. Patient agreeable to treatment plan. Ceciliafrancis Odom APRN.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 [address] [place] [address] documented in this encounter [facility] 08-27-2023 Telephone encounter Note Pt called and requested lab orders to be faxed to [facility]. She is an employee of [facility] [facility]. Faxed to: [phone]. Done. Ambreen Arnold LPN [facility] 08-27-2023 Miscellaneous Notes Pt called and requested lab orders to be faxed to [facility]. She is an employee of [facility]. Faxed to: [phone]. Done. Ambreen Arnold LPN documented in this encounter [facility] 05-29-2023 Miscellaneous Notes Pharmacy verified in [facility] Patient has been identified by name and date of : Yes Patient aware RX will be sent to pharmacy. No need to notify patient. Pharmacy phones for refill(s): Requested Prescriptions Pending Prescriptions Disp Refills empagliflozin (JARDIANCE) 25 mg tablet 90 tablet 3 Sig: Take 1 tablet by mouth once daily. Take 1 tablet once daily in the morning Date of last office visit : 04/23/2023 Date of next office visit : 08/24/2023 Last 2 Encounter Wt Readings: Date: Wt: 04/23/2023 80.3 kg (177 lb) 01/07/2023 79.4 kg (175 lb) Not applicable Please advise. Viki Ding documented in this encounter [facility] 04-23-2023 Note HNO ID: [id number] Author: ZCAH GARCIA MD Service: ? Author Type: Physician Type: Progress Notes Filed: 04/23/2023 23:13 Note Text: This note was created using NoteWriter. Subjective Patient presents with: F/U 3 Month Shane Rodriguez is a 62 year old female. [...] by mouth once daily. blood sugar diagnostic ([employer]y ULTRA TEST) test strip Test once daily. Dx:E11.40. No insulin. empagliflozin (JARDIANCE) 25 mg tablet Take 1 tablet by mouth once daily. Take 1 tablet once daily in the morning glipiZIDE (GLUCOTROL XL) 10mg 24 hr tablet Take 1 tablet by mouth once daily. lancets (WorldStateTOUCH DELICA LANCETS) 30 gauge Test blood sugar once daily. Dx: E11.9. Insulin: No fluticasone-vilanterol (BREO ELLIPTA) 200-25 mcg/dose inhaler Inhale 1 Inhalation as instructed once daily. ustekinumab (STELARA) 130 mg/26 mL injection albuterol HFA (PROVENTIL HFA, VENTOLIN HFA) 90 mcg/actuation inhaler Inhale 2 Puffs as instructed every 4 hours as needed for Wheezing/Shortness of Breath. fluticasone (FLONASE) 50 mcg/actuation nasal spray Use 1 Mcgregor in each nostril once daily. Blood-Glucose Meter (The CloakroomUCH ULTRA2) monitoring kit Use as directed to [...] Continue current medicat (more content not included)... [facility] 04-15-2023 Note HNO ID: [id number] Author: SRAVAN MEZA LPN Service: ? Author Type: LICENSED NURSE Type: Progress Notes Filed: 04/15/2023 14:51 Note Text: Scan on 04/15/2023 9:27 AM by Provider, External, PA-C: Mammography [facility] 01-02-2023 Miscellaneous Notes Patient calls [...] patient. Nay Ding documented in this encounter [facility] 12-23-2022 Miscellaneous Notes Patient has been identified [...] advise. Qian Khan documented in this encounter [facility] 12-22-2022 Miscellaneous Notes Patient notified, she wants Lab orders faxed to [facility] Lab. Done. Deneen Reeder LPN There are labs already ordered Kenia Maguire APRN.CNP Patient called requesting labs Please advise documented in this encounter [facility] 09-24-2022 History of Present illness Narrative This note was created using GroupCharger. He Rodriguez is a 61 year old [...] mouth daily at bedtime. blood sugar diagnostic (The CloakroomUCH ULTRA TEST) test strip Test once daily. [...] capsule by mouth daily with breakfast. lancets (The CloakroomUCH DELICA LANCETS) 30 gauge Test blood sugar once daily. Dx: E11.9. Insulin: No fluticasone-vilanterol (BREO ELLIPTA) 200-25 mcg/dose inhaler Inhale 1 Inhalation as instructed once daily. albuterol HFA (PROVENTIL HFA, VENTOLIN HFA) 90 mcg/actuation inhaler Inhale 2 Puffs as instructed every 4 hours as needed for Wheezing/Shortness of Breath. fluticasone (FLONASE) 50 mcg/actuation nasal spray Use 1 Mcgregor in each nostril once daily. Blood-Glucose Meter (The CloakroomUCH ULTRA2) monitoring kit Use as directed to [...] Zach Garcia MD documented in this encounter [facility] 09-17-2022 Miscellaneous Notes Prilosec to be refilled [...] Nay Garcia Pss documented in this encounter [facility] 05-02-2022 Miscellaneous Notes MALACHI: 09/13/21 with [...] Luly Arnold Pss documented in this encounter [facility] 03-26-2022 Miscellaneous Notes Left a message to call the office and also mailed a letter asking pt to call the office to reschedule March apt. Ambreen Arnold LPN Left a message for pt to call the office and ask to speak to a nurse. Ambreen Arnold LPN My chart message to pt [...] medication: Not applicable Please advise. Thank you. Deenen Reeder LPN Patient has been identified by name and date of : Yes Requested Prescriptions Pending Prescriptions Disp Refills folic acid 1 mg tablet 180 tablet 3 Sig: Take 2 tablets by mouth once daily. RX INSTRUCTIONS: Patient aware RX will be sent to pharmacy. No need to notify patient. Crista Heart Pss documented in this encounter [facility] 01-29-2022 Miscellaneous Notes Patient phones requesting refills as follows: Requested Prescriptions Pending Prescriptions Disp Refills atorvastatin (LIPITOR) 10 mg tablet 90 tablet 3 Sig: Take 1 tablet by mouth daily at bedtime. For cholesterol. Please review and advise. Jodee Farooq LPN documented in this encounter [facility] 12-13-2021 Miscellaneous Notes Patient has been identified [...] Misty Costello Pss documented in this encounter [facility] 12-02-2021 Miscellaneous Notes Checked with [facility], Patient did pickup RX. Deneen Reeder LPN [...] if something could be called into [facility]. Please advise. documented in this encounter [facility] 09-13-2021 History of Present illness Narrative This note was created using GroupCharger. Subjective Shane Rodriguez is a 60 year old female. [...] by mouth once daily. blood sugar diagnostic (The CloakroomUCH ULTRA TEST) test strip Use as instructed amitriptyline (ELAVIL) 100 mg tablet Take 1 tablet by mouth every evening. atorvastatin (LIPITOR) 10 mg tablet Take 1 tablet by mouth daily at bedtime. For cholesterol. lancets (ONETOUCH DELICA LANCETS) 30 gauge Test blood sugar once daily. Dx: E11.9. Insulin: No fluticasone-vilanterol (BREO ELLIPTA) 200-25 mcg/dose inhaler Inhale 1 Inhalation as instructed once daily. albuterol HFA (PROVENTIL HFA, VENTOLIN HFA) 90 mcg/actuation inhaler Inhale 2 Puffs as instructed every 4 hours as needed for Wheezing/Shortness of Breath. fluticasone (FLONASE) 50 mcg/actuation nasal spray Use 1 Mcgregor in each nostril once daily. Blood-Glucose Meter (The CloakroomUCH ULTRA2) monitoring kit Use as directed to [...] V76.12, ICD10: Z12.31 - GABO SCREENING W PRAVEENASanta Garcia MD documented in this encounter [facility] 07-08-2021 Instructions Jennifer Varghese APRN.CNS - 07/08/2021 10:52 AM EDT Check with her surgeon regarding timing of surgery and what to do with your medications prior to surgery. documented in this encounter [facility] 07-08-2021 History of Present illness Narrative SUBJECTIVE: SPIROMETRY Never done URINE ALBUMIN:CREATININE RATIO due on 07/19/2020 DILATED RETINAL EXAM due on 10/20/2020 COVID-19 VACCINE(4 - Booster for Pfizer series) due on 07/12/2021 HPI Shane Rodriguez is a 60 year old female.PMH [...] knee arthroplasty Date: July 26, 2021 Location: [facility] Surgeon: Dr Bronson CP:none SOBOE: stable OR: no prior CVA:no prior Functional capacity: Flat surface: not limited by shortness of breath on exertion or chest pain Flight of stairs: shortness of breath on exertion 2-3 flight of stairs; able to complete without difficulty ADL/IADL: independent 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 ACS NSQIP Surgical Risk Calculator 1. Age [...] No 19. BMI Class Calculation: Obese 1 [facility] labwork: May 08, 2021 WBC 6.2 [...] managing this, no recent exacerbation. Follows with locomotive oiler at [facility], recently seen in the office, she notes given okay to proceed with surgery by locomotive oiler. Review of Systems Respiratory: Positive for shortness [...] blood sugar diagnostic (ONETOUCH ULTRA TEST) test strip, Use as instructed amitriptyline (ELAVIL) 100 mg tablet, Take 1 tablet by mouth every evening. atorvastatin (LIPITOR) 10 mg tablet, Take 1 tablet by mouth daily at bedtime. For cholesterol. lancets (WorldStateTOUCH DELICA LANCETS) 30 gauge, Test blood sugar once daily. Dx: E11.9. Insulin: No fluticasone-vilanterol (BREO ELLIPTA) 200-25 mcg/dose inhaler, Inhale 1 Inhalation as instructed once daily. ustekinumab (STELARA) 130 mg/26 mL injection, albuterol HFA (PROVENTIL HFA, VENTOLIN HFA) 90 mcg/actuation inhaler, Inhale 2 Puffs as instructed every 4 hours as needed for Wheezing/Shortness of Breath. fluticasone (FLONASE) 50 mcg/actuation nasal spray, Use 1 Mcgregor in each nostril once daily. Blood-Glucose Meter (The CloakroomUCH ULTRA2) monitoring kit, Use as directed to [...] without long-term current use of insulin (HCC) 02/27/2016 Type II or unspecified type diabetes mellitus without mention of complication, not stated as uncontrolled 2009 PAST SURGICAL HISTORY Procedure Laterality Date ARTHRP KNE CONDYLE&PLATU MEDIAL&LAT COMPARTMENTS Right 06/15/2017 CHOLECYSTECTOMY 09/13/1973 Cholecystectomy COLONOSCOPY 03/21/2018 COLONOSCOPY 10/27/2019 COLONOSCOPY 01/24/2021 Dr. Sarah More COLONOSCOPY FLX DX W/COLLJ SPEC WHEN PFRMD 03/27/1997 Colonoscopy COLONOSCOPY FLX DX W/COLLJ SPEC WHEN PFRMD 06/26/2011 Colonoscopy [facility] COLONOSCOPY FLX DX W/COLLJ SPEC WHEN PFRMD 06/30/2014 Colonoscopy COLONOSCOPY FLX DX W/COLLJ SPEC WHEN PFRMD 06/22/2015 Colonoscopy EGD 03/21/2018 EGD 10/27/2019 EGD 01/24/2021 Dr. Saarh More ESOPHAGOGASTRODUODENOSCOPY TRANSORAL DIAGNOSTIC 06/30/2014 EGD KNEE [...] notes surgery to be completed by Dr. Martín Bronson at [facility] July 28, 2021. Below average risk for surgery, 2.7% risk of serious complication, 3.6% of any complication by ACS NSQIP surgical risk calculator. EKG was completed at [facility] showed normal sinus rhythm. No need for additional testing other than lab work at this time. Recent lab work completed outside of [id number] window prior to surgery so can complete here or at [facility] per preference. Would like to do [...] 4 - Moderate documented in this encounter [facility] 01-17-2021 Note Plan of Care Continue Current [...] Adult Risk Screening Initial Fall Risk Screening: SHANE has not fallen in the last 6 months. SHANE does not have a fear of falling. [...] believes PND contributes. Objective Progress to date: group home goals: Improve overall vocal health to foster [...] verbalized understanding and agreement: yes CPT Code 53357 Treatment of speech, language AND voice Signatures Electronically signed by : Jessica Lim CCC-NURSES ASSISTANT; Jan 18 2021 10:03AM EST (Author) [facility] 04-27-2020 History of Past i llness Narrative Problem Noted Date Resolved Date COVID-19 virus [...] 130-140 range. Patient's last HgA1C was HBA1C, [place] (%) Date Value 09/13/2011 6.2* 03/01/2011 6.6* [...] of this encounter (statuses as of 07/08/2021) [facility] History of Past illness Narrative* Problem Noted [...] of this encounter (statuses as of 09/13/2021) [facility] History of Past illness Narrative* Problem Noted [...] 130-140 range. Patient's last HgA1C was HBA1C, [place] (%) Date Value 09/13/2011 6.2* 03/01/2011 6.6* [...] of this encounter (statuses as of 12/02/2021) [facility] History of Past illness Narrative* Problem Noted [...] of this encounter (statuses as of 12/13/2021) [facility] History of Past illness Narrative* Problem Noted [...] 130-140 range. Patient's last HgA1C was HBA1C, [place] (%) Date Value 09/13/2011 6.2* 03/01/2011 6.6* [...] of this encounter (statuses as of 01/31/2022) [facility] History of Past illness Narrative* Problem Noted [...] 130-140 range. Patient's last HgA1C was HBA1C, [place] (%) Date Value 09/13/2011 6.2* 03/01/2011 6.6* [...] of this encounter (statuses as of 03/26/2022) [facility] History of Past illness Narrative* Problem Noted [...] of this encounter (statuses as of 05/02/2022) [facility] History of Past illness Narrative* Problem Noted [...] of this encounter (statuses as of 08/18/2022) [facility] History of Past illness Narrative* Problem Noted [...] of this encounter (statuses as of 09/18/2022) [facility] History of Past illness Narrative* Problem Noted [...] 130-140 range. Patient's last HgA1C was HBA1C, [place] (%) Date Value 09/13/2011 6.2* 03/01/2011 6.6* [...] of this encounter (statuses as of 09/25/2022) [facility] History of Past illness Narrative* Problem Noted [...] of this encounter (statuses as of 12/22/2022) [facility] History of Past illness Narrative* Problem Noted [...] 130-140 range. Patient's last HgA1C was HBA1C, [place] (%) Date Value 09/13/2011 6.2* 03/01/2011 6.6* [...] of this encounter (statuses as of 12/23/2022) [facility] History of Past illness Narrative* Problem Noted [...] of this encounter (statuses as of 01/03/2023) [facility] History of Past illness Narrative* Problem Noted [...] 130-140 range. Patient's last HgA1C was HBA1C, [place] (%) Date Value 09/13/2011 6.2* 03/01/2011 6.6* [...] as of this encounter (statuses as of 05/29/2023) [facility] History of Present illness Narrative* SHANE RODRIGUEZ is a 60 year female referred [...] per the patient. Works second shift at [employer]. Uses amitriptyline tohelp sleep. * PMH: N/a * FHx: reviewed and non-contributory to current complaint. * I personally reviewed the patient AEMR notes, and consult notes from Dr. An * ROS performed. All other systems are reviewed and are negative for complaint and as noted above. [facility] 4[address] Work Phone: [phone] History of Present illness Narrative* SHANE RODRIGUEZ is a 60 year female referred [...] per the patient. Works second shift at [employer]. Uses amitriptyline to help sleep. * PMH: N/a * FHx: reviewed and non-contributory to current complaint. * I personally reviewed the patient AEMR notes, and consult notes from Dr. An * ROS performed. All other systems are reviewed and are negative for complaint and as noted above. MZ-Sggymtpojtwspd-[facility]btpvflUn[facility] 9784 Work Phone: [phone] History of Present illness Narrative* SHANE RODRIGUEZ is a 60 year female referred [...] per the patient. Works second shift at [employer]. Uses amitriptyline to help sleep. * PMH: N/a * FHx: reviewed and non-contributory to current complaint. * I personally reviewed the patient AEMR notes, and consult notes from Dr. An * ROS performed. All other systems are reviewed and are negative for complaint and as noted above. NP-Incwwxpiaknixf-[facility]fgkmokV[facility] Work Phone: Evaluation note* Diagnosis Preop exam for internal medicine- Primary Other specified pre-operative examination [facility] Diagnosis Fibromyalgia- Primary Mylagia and myositis, unspecified Type 2 diabetes mellitus with diabetic neuropathy, without long-term current use of insulin (HCC) Essential hypertension Unspecified essential hypertension Encounter for screening mammogram for malignant neoplasm of breast Other screening [facility] Essential hypertension Unspecified essential hypertension Gastroesophageal reflux disease, unspecified whether esophagitis present [facility] Diagnosis Type 2 diabetes mellitus with diabetic neuropathy, without long-term current use of insulin (HCC) [facility] Diagnosis Encounter for screening mammogram for breast cancer [facility] Diagnosis Gastroesophageal reflux disease, unspecified whether esophagitis present Type 2 diabetes mellitus with diabetic neuropathy, without long-term current use of insulin (HCC) [facility] Diagnosis Disequilibrium- Primary Dizziness and giddiness [...] unspecified single disease [facility] Diagnosis Essential hypertension Unspecified essential hypertension [facility]* Diagnosis Type 2 diabetes mellitus with diabetic neuropathy, without long-term current use of insulin (HCC) Gastroesophageal reflux disease, unspecified whether esophagitis present Essential hypertension Unspecified essential hypertension [facility]* Diagnosis Type 2 diabetes mellitus with diabetic neuropathy, without long-term current use of insulin (HCC) [facility]* Diagnosis Well adult exam- Primary Routine general medical examination at a [facility] care facility Type 2 diabetes mellitus with diabetic neuropathy, without long-term current use of insulin (HCC) Essential hypertension Unspecified essential hypertension Fibromyalgia Mylagia and myositis, unspecified Moderate persistent asthma without complication Unspecified asthma Crohn's disease of colon without complication (HCC) Gastroesophageal reflux disease, unspecified whether esophagitis present Hyperlipidemia, unspecified hyperlipidemia type [facility]* Diagnosis Type 2 diabetes mellitus with diabetic neuropathy, without long-term current use of insulin (HCC) Anemia, unspecified type [facility]* Diagnosis Type 2 diabetes mellitus with diabetic neuropathy, without long-term current use of insulin (HCC)- Primary Essential hypertension Unspecified essential hypertension Depressive disorder Depressive disorder, not elsewhere classified Moderate persistent asthma without complication Unspecified asthma Obesity (BMI 30-39.9) Obesity, unspecified [facility]* Diagnosis Inflammatory polyarthropathies (HCC)- Primary Unspecified inflammatory polyarthropathy Unspecified essential hypertension Diabetes Mellitus Type II or unspecified type diabetes mellitus without mention of complication, not stated as uncontrolled Crohn disease Regional enteritis of unspecified site Epistaxis Fibromyalgia Mylagia and myositis, unspecified [facility]* Diagnosis Inflammatory polyarthropathies (HCC)- Primary Unspecified inflammatory polyarthropathy Unspecified essential hypertension Diabetes Mellitus Type II or unspecified type diabetes mellitus without mention of complication, not stated as uncontrolled Crohn disease Regional enteritis of unspecified site Epistaxis Gastroesophageal reflux disease, unspecified whether esophagitis present Type 2 diabetes mellitus with diabetic neuropathy, without long-term current use of insulin (HCC) Essential hypertension Unspecified essential hypertension [facility] N[facility]* Re-instructed patient in [...] Strain: 1 * Voice: level 5 initial [facility]qwhfdifzhaius-[facility] 4[facility] Work Phone: Reason for referral (narrative)* Diagnostic Procedure Only (Routine) - Pending Review Specialty Diagnoses / Procedures Referred By Alba t Referred To Contact [facility] Diagnoses Encounter for screening mammogram for malignant neoplasm of breast Procedures GABO SCREENING W PRAVEENA SCREENING DIGITAL BREAST TOMOSYNTHESIS BI SCREENING MAMMOGRAPHY BI 2-VIEW BREAST INC CAD Zach Garcia MD [address] [place] [address] [facility] [address] [place] [address] Referral ID Status Reason Start Date Expiration Date Visits Requested Visits Authorized [id number] Pending Review Auto-Generat ed Referral 09/13/2021 10/13/2022 1 1 [facility] Diagnostic Procedure Only (Routine) - Pending Review Specialty Diagnoses / Procedures Referred By Alba christian Referred To Contact [facility] Diagnoses Encounter for screening mammogram for breast cancer Procedures GABO SCREENING W PRAVEENA SCREENING DIGITAL BREAST TOMOSYNTHESIS BI SCREENING MAMMOGRAPHY BI 2-VIEW BREAST INC CAD Zach Garcia MD [address] [place] [address] [facility] [address] [place] [address] Referral ID Status Reason Start Date Expiration Date Visits Requested Visits Authorized [id number] Pending Review Auto-Generat ed Referral 08/13/2022 09/12/2023 1 1 [facility] Summary Purpose Family History No Family History Records FoundNo Family History Records FoundNo Family History Records FoundNo Family History Records FoundNo Family History Records Found Advance Directives Documents on File Type Date Recorded 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 Advance Directive(s) 11/11/2019 11:24 AM me john Advance Directive(s) 11/01/2019 1:20 PM Advance Directive(s) 06/22/2015 9:11 AM Advance Directive(s) 06/13/2015 10:35 AM Documents on File Type Date Recorded 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 Advance Directive(s) 11/11/2019 11:24 AM me john Advance Directive(s) 11/01/2019 1:20 PM Advance Directive(s) 06/22/2015 9:11 AM Advance Directive(s) 06/13/2015 10:35 AM Chief Complaint HoarsenessHoarsenessHoarseness Reason for Referral Specialty Diagnoses / Procedures Referred By Alba christian Referred To Contact Physical Therapy Diagnoses Disequilibrium History of falling Procedures CONSULT TO PHYSICAL THERAPY Zach Garcia MD [address] [place] [address] Referral ID Status Reason Start Date Expiration Date Visits Requested Visits Authorized [id number] Ref Not Required PCP Requested Referral 09/24/2022 09/24/2023 1 1 Specialty Diagnoses / Procedures Referred By Alba christian Referred To Contact [facility] Diagnoses Encounter for screening mammogram for malignant neoplasm of breast Procedures GABO SCREENING W PRAVEENA SCREENING DIGITAL BREAST TOMOSYNTHESIS BI SCREENING MAMMOGRAPHY BI 2-VIEW BREAST INC CAD Zach Garcia MD [address] [place] [address] [facility] [address] [place] [address] Referral ID Status Reason Start Date Expiration Date Visits Requested Visits Authorized [id number] Pending Review Auto-Generat ed Referral 09/24/2022 10/24/2023 1 1 Additional Source Comments INFORMATION SOURCE (unrecogn ized section and content) DATE CREATED AUTHOR 09/29/2017 [facility] DATE CREATED AUTHOR AUTHOR'S ORGANIZ ATION 07/11/2020 [facility] DATE CREATED AUTHOR AUTHOR'S ORGANIZ ATION 01/19/2021 [facility] DATE CREATED AUTHOR AUTHOR'S ORGANIZ ATION 07/20/2021 [facility] DATE CREATED AUTHOR AUTHOR'S ORGANIZ ATION 01/09/2024 [facility] Source Comments (unrecognize d section and content) In the event this informatio n is protected by the Federal Confidentiality of Alcohol and Drug Abuse Patient Records regulations: The Federal rules restrict any use of the information to criminally investigate or prosecute any alcohol or drug abuse patient.[facility] Hospital[facility] the event this information is protected by the Federal Confidentiality of Alcohol and Drug Abuse Patient Records regulations: The Federal rules restrict any use of the information to criminally investigate or prosecute any alcohol or drug abuse patient.[facility] HospitalIn the event this information is protected by the Federal Confidentiality of Alcohol and Drug Abuse Patient Records regulations: The Federal rules restrict any use of the information to criminally investigate or prosecute any alcohol or drug abuse patient.[facility] HospitalIn the event this information is protected by the Federal Confidentiality of Alcohol and Drug Abuse Patient Records regulations: The Federal rules restrict any use of the information to criminally investigate or prosecute any alcohol or drug abuse patient.[facility] HospitalIn the event this information is protected by the Federal Confidentiality of Alcohol and Drug Abuse Patient Records regulations: The Federal rules restrict any use of the information to criminally investigate or prosecute any alcohol or drug abuse patient.[facility] HospitalIn the event this information is protected by the Federal Confidentiality of Alcohol and Drug Abuse Patient Records regulations: The Federal rules restrict any use of the information to criminally investigate or prosecute any alcohol or drug abuse patient.[facility] HospitalIn the event this information is protected by the Federal Confidentiality of Alcohol and Drug Abuse Patient Records regulations: The Federal rules restrict any use of the information to criminally investigate or prosecute any alcohol or drug abuse patient.[facility] HospitalIn the event this information is protected by the Federal Confidentiality of Alcohol and Drug Abuse Patient Records regulations: The Federal rules restrict any use of the information to criminally investigate or prosecute any alcohol or drug abuse patient.[facility] HospitalIn the event this information is protected by the Federal Confidentiality of Alcohol and Drug Abuse Patient Records regulations: The Federal rules restrict any use of the information to criminally investigate or prosecute any alcohol or drug abuse patient.[facility] HospitalIn the event this information is protected by the Federal Confidentiality of Alcohol and Drug Abuse Patient Records regulations: The Federal rules restrict any use of the information to criminally investigate or prosecute any alcohol or drug abuse patient.[facility] HospitalIn the event this information is protected by the Federal Confidentiality of Alcohol and Drug Abuse Patient Records regulations: The Federal rules restrict any use of the information to criminally investigate or prosecute any alcohol or drug abuse patient.[facility] HospitalIn the event this information is protected by the Federal Confidentiality of Alcohol and Drug Abuse Patient Records regulations: The Federal rules restrict any use of the information to criminally investigate or prosecute any alcohol or drug abuse patient.[facility] HospitalIn the event this information is protected by the Federal Confidentiality of Alcohol and Drug Abuse Patient Records regulations: The Federal rules restrict any use of the information to criminally investigate or prosecute any alcohol or drug abuse patient.[facility] HospitalIn the event this information is protected by the Federal Confidentiality of Alcohol and Drug Abuse Patient Records regulations: The Federal rules restrict any use of the information to criminally investigate or prosecute any alcohol or drug abuse patient.[facility] HospitalIn the event this information is protected by the Federal Confidentiality of Alcohol and Drug Abuse Patient Records regulations: The Federal rules restrict any use of the information to criminally investigate or prosecute any alcohol or drug abuse patient.[facility] HospitalIn the event this information is protected by the Federal Confidentiality of Alcohol and Drug Abuse Patient Records regulations: The Federal rules restrict any use of the information to criminally investigate or prosecute any alcohol or drug abuse patient.[facility] HospitalIn the event this information is protected by the Federal Confidentiality of Alcohol and Drug Abuse Patient Records regulations: The Federal rules restrict any use of the information to criminally investigate or prosecute any alcohol or drug abuse patient.[facility] HospitalIn the event this information is protected by the Federal Confidentiality of Alcohol and Drug Abuse Patient Records regulations: The Federal rules restrict any use of the information to criminally investigate or prosecute any alcohol or drug abuse patient.[facility] HospitalIn the event this information is protected by the Federal Confidentiality of Alcohol and Drug Abuse Patient Records regulations: The Federal rules restrict any use of the information to criminally investigate or prosecute any alcohol or drug abuse patient.[facility] HospitalIn the event this information is protected by the Federal Confidentiality of Alcohol and Drug Abuse Patient Records regulations: The Federal rules restrict any use of the information to criminally investigate or prosecute any alcohol or drug abuse patient.[facility]In the event this information is protected by the Federal Confidentiality of Alcohol and Drug Abuse Patient Records regulations: The Federal rules restrict any use of the information to criminally investigate or prosecute any alcohol or drug abuse patient.[facility] HospitalIn the event this information is protected by the Federal Confidentiality of Alcohol and Drug Abuse Patient Records regulations: The Federal rules restrict any use of the information to criminally investigate or prosecute any alcohol or drug abuse patient.[facility] Reason for Visit (unrecogniz ed section and content) Reason Comments Pre-Op Exam Reason Comments F/U 3 Month Reason Comments Vaginal Problem Medication Update Reason Onset Date Comments Refill Request 12/13/2021 NEW PHARMACY Reason Onset Date Comments Refill Request 01/29/2022 Reason Onset Date Comments Refill Request 03/24/2022 Reason Comments Refill Request Reason Onset Date Comments Refill Request 09/17/2022 Reason Comments Recheck Reason Comments Orders Reason Onset Date Comments Refill Request 12/30/2022 Reason Onset Date Comments Refill Request 05/29/2023 Reason Comments fax orders to [facility] Reason Comments yearly Reason Onset Date Comments Refill Request 10/06/2023 Reason Comments phone call Reason Comments Follow Up Reason Comments Results Reason Comments requesting medication that is Reason Onset Date Comments Refill Request 01/07/2024 Care Teams (unrecognized sec tion and content) Surgery Assistant Relationship Specialty Start Date End Date Zach Garcia MD [address] [place], [place] [id number] PCP - General Internal Medicine 02/24/11 Surgery Assistant Relationship Specialty Start Date End Date Zach Garcia MD [address] [place], [place] [address] PCP - General Internal Medicine 02/24/11 Surgery Assistant Relationship Specialty Start Date End Date Zach Garcia MD [address] [place] [address] PCP - General Internal Medicine 02/24/11 Surgery Assistant Relationship Specialty Start Date End Date Zach Garcia MD [address] [place] [address] PCP - General Internal Medicine 02/24/11 Surgery Assistant Relationship Specialty Start Date End Date Zach Garcia MD [address] [place] [address] PCP - General Internal Medicine 02/24/11 Surgery Assistant Relationship Specialty Start Date End Date Zach Garcia MD [address] [place] [address] PCP - General Internal Medicine 02/24/11 Surgery Assistant Relationship Specialty Start Date End Date Zach Garcia MD [address] [place] [address] PCP - General Internal Medicine 02/24/11 Surgery Assistant Relationship Specialty Start Date End Date Zach Garcia MD [address] [place] [address] PCP - General Internal Medicine 02/24/11 Surgery Assistant Relationship Specialty Start Date End Date Zach Garcia MD [address] [place] [address] PCP - General Internal Medicine 02/24/11 Surgery Assistant Relationship Specialty Start Date End Date Zach Garcia MD [address] [place] [address] PCP - General Internal Medicine 02/24/11 Surgery Assistant Relationship Specialty Start Date End Date Zach Garcia MD [address] [place] [address] PCP - General Internal Medicine 02/24/11 Surgery Assistant Relationship Specialty Start Date End Date Zach Garcia MD [address] [facility] [address] PCP - General Internal Medicine 02/24/11 Surgery Assistant Relationship Specialty Start Date End Date Zach Garcia MD [address] [facility] [place] [address] PCP - General Internal Medicine 02/24/11 Surgery Assistant Relationship Specialty Start Date End Date Zach Garcia MD [address] [facility] [place] [address] PCP - General Internal Medicine 02/24/11 Surgery Assistant Relationship Specialty Start Date End Date Zach Garcia MD [address] [facility] [address] PCP - General Internal Medicine 02/24/11 Surgery Assistant Relationship Specialty Start Date End Date Zach Garcia MD [address] [facility] [place] [address] PCP - General Internal Medicine 02/24/11 Surgery Assistant Relationship Specialty Start Date End Date Zach Garcia MD [address] [place] [address] PCP - General Internal Medicine 02/24/11 FOR [...] BE BASED ON THE PRIMARY CLINICAL RECORDS. [facility] [employer] [facility]. provides no warranty or guarantee of the accuracy or completeness of information in this document.
== END | disposition home or self-care (01) ==
LOC: US 07:36
PROVIDERS: PCP Internal Medicine; Referring Provider Internal Medicine Gastroenterology; Visit Provider Internal Medicine Gastroenterology
DX: K76.0 Fatty (change of) liver, not elsewhere classified (principal)
CPT/HCPCS: 76705; 76981

== ENCOUNTER → 2024-01-29 | Outpatient (CLI) | payer OTHER, SELFPAY ==
[2024-01-29] VITALS (11 sets, daily range): BP systolic 104–139; BP diastolic 50–88; PULSE 81–84; RESP 14–18; TEMP 36.6; O2SAT 91–98; BMI 30.9
--- NOTE | 2024-01-29 | LIVB_PTH ---
PATHOLOGY RESULTS PATIENT: SHANE RODRIGUEZ LOC: CT U#:[id number] AGE/SX: 63/F ROOM: RE01/29/[address]: Dr. Jeff More DO : 1960 BED: DIS: 01/29/2024 SPEC #: [id number] RECD: 01/29/24 11:04 STATUS: KAYCEE JUSTA #: [id number] JAMI: 01/29/24 00:[address]: Jeff More DEPT: SURGICAL PATHOLOGY RECD BY: Tunde Mcdonnell ENTERED: 01/29/24 13:07 SP TYPE: LIVER BX OTHR DR: Dr. Zach Null MD Tissues: Liver, NOS Procedures: PAS with Diastase (control) Trichrome (control) Special Stain Group I PAS Stain (control) Surgery Specimen Level V Retic (control) Iron Stain (control) HEADER OPERATION: CT guided liver biopsy PRE-OP DIAGNOSIS: Fatty liver TISSUE SUBMITTED: 18 gauge x 5 cores MICROSCOPIC DIAGNOSIS Liver, CT guided core biopsy: Consistent with cirrhosis. Extensive macrovesicular steatosis. See microscopic description and comment. 02/01/2024 COMMENT Correlation with clinical, radiologic, laboratory findings and appropriate follow up are necessary. MICROSCOPIC DESCRIPTION Slides are reviewed. The specimen shows liver parenchymal tissue with distortion of normal lobular architecture into multiple nodules divided by fibrous septa. Hepatocytes in the nodule shows extensive macrovesicular steatosis and reactive changes. Fibrous septa in between the nodules show focal mild chronic inflammation. Iron stains show absent iron. Reticulin and trichrome stains highlight the fibrous septa in between hepatocyte nodules. PAS stain with and without diastase do not show any abnormal accumulation of protein. All stains are performed with appropriate matched control. GROSS DESCRIPTION Received in fixative is one container labeled with the patient's name and designated Liver biopsy. The specimen consists of multiple elongated cores of fall tissue that in aggregate measure 2.0 x 0.5 x <0.1cm. The specimen is totally submitted in one cassette. Trae 01/29/2024 TC:5 CPT:73542,01528t3
--- NOTE | 2024-01-29 08:49 | CT_ITS ---
PROCEDURE: CT DIRECTED CORE LIVER BIOPSY INDICATION: Female, 63 years old. Fatty liver PHYSICIAN: Dr. Mark Porter CONSENT: Written informed consent was obtained having explained the risks, benefits and alternatives in detail with the patient who accepted the risks and agreed to proceed. Laboratory review and clinical assessment was performed. CONSCIOUS SEDATION PROTOCOL: The Drugs used were: 2 mg Versed, IV., and 50 mcg Fentanyl, IV. The sedation time was: 20 minutes. Conscious sedation was started at 10:40 AM and terminated at 11:00 AM. The conscious sedation protocol was independently monitored. RADIATION DOSAGE (If Supplied By Facility): CTDIvol = ( 23.5 ) mGy, DLP = ( 657.16 ) mGycm Individualized dose optimization techniques were used for this CT. TECHNIQUE: Using CT image guidance with image documentation, a suitable location in the left lobe of the liver was identified. Using an anterior approach, puncture of the liver was uneventful with an 18-gauge core needle system. 5, 18-gauge core samples were obtained, and submitted in formalin to the pathologist for further assessment. Followup CT scan revealed no distinct sequelae. CT/Biopsy/Inj or Needle Placement IMPRESSION: 1. CT directed core needle biopsy of the liver, using CT image guidance with image documentation as described. 2. Conscious Sedation protocol utilized with independent monitoring. Electronically Signed: Calvin Flores MD at 11:14 EDT ,
[2024-01-29 08:59] LABS: Hematocrit 43.1 % (37-47); Hemoglobin 13.1 g/dL (12.0-15.0); Mean Corp Hgb Conc 30.4 g/dL (32-36); Mean Corpuscular Hgb 24.5 pg (27.0-32.0); Mean Corpuscular Volume 80.6 fL (81-99); Mean Platelet Vol. 9.4 fl (6.2-12.0); Platelet Count 191 K/mm3 (150-450); RBC Distribution Width CV 15.7 % (11.6-14.6); RBC Distribution Width SD 45.4 fl (35.1-43.9); Red Blood Count 5.35 M/mm3 (4.2-5.4); White Blood Count 5.3 K/mm3 (4.4-11.0)
[2024-01-29 09:14] LABS: Prothrombin Time (Protime)PT. 13.3 SECONDS (11.7-14.9)
[2024-01-29 09:15] LABS: Partial Thromboplast Time 30.6 Seconds (24.1-36.2)
[2024-01-29 09:32] LABS: Anion Gap 3 (5-15); BUN 10 mg/dL (7-18); BUN/Creat Ratio 14.3 RATIO (10-20); Calcium,Total 9.1 mg/dL (8.5-10.1); Chloride 105 mmol/L (98-107); Cholesterol 143 mg/dL (200); EST Glomerular Filtration Rate 90 mL/min (>60); Est Glom Filt Rate - Afr Amer 109 mL/min (>60); Glucose 148 mg/dL (74-106); High Density Lipoprotein 52 mg/dL; Potassium 3.8 mmol/L (3.5-5.1); Sodium Level 138 mmol/L (136-145); Triglycerides 181 mg/dL; Very Low Density Lipoprotein 36 mg/dL (5-40)
[2024-01-29 09:35] LABS: Hemoglobin A1c 6.9 % (3.8-5.6)
[2024-01-29] MEDS: 0.9% Saline Lock 10 ML Syringe IV ×2 (10:15→10:40)
[2024-01-29 10:28] LABS: Microalbumin:Creatinine Ratio 171.7 mg/g CRE (<30 mg/g CRE)
[2024-01-29] MEDS: fentaNYL 100 MCG/2 ML Ampul IV (10:40)
[2024-01-29] MEDS: Midazolam 2 MG/2 ML Syringe IV (10:40)
[2024-01-29] MEDS: Lidocaine 2% (20 ml mdv) 20 ML Vial INFILT (10:50)
== END | disposition home or self-care (01) ==
PROVIDERS: PCP Internal Medicine; Referring Provider Internal Medicine Gastroenterology; Visit Provider Internal Medicine Gastroenterology
DX: K76.0 Fatty (change of) liver, not elsewhere classified (principal); E11.40 Type 2 diabetes mellitus with diabetic neuropathy, unspecified; D64.9 Anemia, unspecified
CPT/HCPCS: 47000; 36415; 77012; 80048; 80061; 82043; 82570; 83036; 85027; 85610; 85730; 88307; 88312; 99156; A4216

== ENCOUNTER → 2024-02-16 | Outpatient (CLI) | payer OTHER, SELFPAY ==
[2024-02-16 17:05] LABS: Absolute Neutrophil Count 5.5 X10^3/uL (2.0-7.7); Basophil# 0.07 X10^3/uL; Basophil% 0.8 % (0-1); Eosinophil# 0.16 X10^3/uL; Eosinophils% 1.9 % (0-5); Hematocrit 43.8 % (37-47); Hemoglobin 13.7 g/dL (12.0-15.0); Lymphocyte % 25.6 % (19-41); Mean Corp Hgb Conc 31.3 g/dL (32-36); Mean Corpuscular Volume 79.9 fL (81-99); Mean Platelet Vol. 9.6 fl (6.2-12.0); Monocyte# 0.62 X10^3/uL; Monocyte% 7.2 % (0-10); NRBC Flagged by Analyzer 0 % (0-5); Neutrophil # 5.48 X10^3/uL (2.7-7.7); Neutrophil % 63.9 % (47-70); Platelet Count 233 K/mm3 (150-450); RBC Distribution Width CV 15.7 % (11.6-14.6); RBC Distribution Width SD 44.9 fl (35.1-43.9); Red Blood Count 5.48 M/mm3 (4.2-5.4); White Blood Count 8.6 K/mm3 (4.4-11.0)
[2024-02-16 17:09] LABS: Prothrombin Time (Protime)PT. 13.3 SECONDS (11.7-14.9)
[2024-02-16 17:14] LABS: Erythrocyte Sedimentation Rate 8 mm/hr (0-30)
[2024-02-16 17:44] LABS: AST(SGOT) 20 U/L (15-37); Alanine Aminotransfer ALT/SGPT 38 U/L (13-56); Albumin, Serum 4.2 g/dL (3.2-5.0); Alkaline Phosphatase 108 U/L (45-117); Anion Gap 7 (5-15); BUN 16 mg/dL (7-18); BUN/Creat Ratio 20.8 RATIO (10-20); CRP < 2.90 mg/L (0.0-3.0); Calcium,Total 9.5 mg/dL (8.5-10.1); Chloride 101 mmol/L (98-107); Cholesterol 156 mg/dL (200); Creatinine, Serum 0.77 mg/dL (0.55-1.02); EST Glomerular Filtration Rate 80 mL/min (>60); Est Glom Filt Rate - Afr Amer 97 mL/min (>60); Ferritin 28 ng/mL (8-252); Globulin 4.3 g/dL (2.2-4.2); Glucose 111 mg/dL (74-106); High Density Lipoprotein 54 mg/dL; Iron Binding Capacity,Total 435 ug/dL (250-450); LDH 209 U/L (84-246); Potassium 3.3 mmol/L (3.5-5.1); Protein, Total 8.5 g/dL (6.4-8.2); Sodium Level 136 mmol/L (136-145); Triglycerides 196 mg/dL; Very Low Density Lipoprotein 39 mg/dL (5-40)
[2024-02-16 18:10] LABS: HIV - WCH Non-Reactive (Nonreactive)
[2024-02-16 18:27] LABS: Hemoglobin A1c 7.2 % (3.8-5.6)
[2024-02-18 17:08] LABS: Anti-Centromere B Ab <0.2 AI (0.0-0.9); Anti-Chromatin <0.2 AI (0.0-0.9); Anti-Jo <0.2 AI (0.0-0.9); Anti-Mitochondrial AB <20.0 Units (0.0-20.0); Anti-Scleroderma-70 AB <0.2 AI (0.0-0.9); Anti-dsDNA Ab 1 IU/mL (0-9); RNP Ab 0.2 AI (0.0-0.9); SJOGREN'S Anti-SS-A test < 0.2 AI (0.0-0.9); SJOGREN'S Anti-SS-B test < 0.2 AI (0.0-0.9); Smith Ab <0.2 AI (0.0-0.9)
[2024-02-19 16:11] LABS: AFP, Tumor Marker < 1.8 ng/mL (0.0-9.2); Angiotensin Convert Enzyme 26 U/L (14-82); Anti-Smooth Muscle ABS 90 Units (0-19); Ceruloplasmin 27.8 mg/dL (19.0-39.0); Copper, Serum or Plasma 109 ug/dL (80-158); Cytoplasmic Ab (C-ANCA) <1:20 titer (Neg:<1:20); HEPATITIS B SURFACE AG Negative (Negative); Haptoglobin 169 mg/dL (37-355); Hep C Antibodies Non Reactive (Non Reactive); Hepatitis A IgM Antibody Negative (Negative); Hepatitis B Core AB IgM Negative (Negative); Perinuclear Ab (P-ANCA) <1:20 titer (Neg:<1:20); Transferrin 334 mg/dL (192-364)
== END | disposition home or self-care (01) ==
LOC: LAB 16:30
PROVIDERS: PCP Internal Medicine; Referring Provider Student in an Organized Health Care Education/Training Program; Visit Provider Student in an Organized Health Care Education/Training Program
DX: K74.60 Unspecified cirrhosis of liver (principal)
CPT/HCPCS: 36415; 80053; 80061; 80074; 82105; 82140; 82164; 82390; 82525; 82728; 83010; 83036; 83516; 83550; 83615; 84466; 85025; 85610; 85652; 86037; 86140; 86225; 86235; 86703

== ENCOUNTER 2024-02-26 10:50 | Day surgery (SDC) | payer OTHER, SELFPAY ==
[2024-02-26] VITALS (9 sets, daily range): BP systolic 91–137; BP diastolic 32–54; PULSE 65–77; RESP 12–20; TEMP 36.4–36.7; O2SAT 96–100; BMI 31.1
[2024-02-26 11:41] LABS: Bedside Glucose 126 mg/dL (74-106)
--- NOTE | 2024-02-26 12:16 | PRE.ANES_ITS ---
ASA Classification* ASA Classification ASA Classification: 3 Assessment & Plan Anesthesia* Anesthesia Assessment Anesthesia Assessment: Discussed sedation and/or anesthesia options, risks, benefits, and alternatives with patient/parents/legal guardian/POA. Questions invited. The patient/parents/legal guardian/POA seems to understand and agrees to proceed with anesthesia plan. Reviewed the physical assessment, medical history, allergy history and patient home medications list prior to surgery/procedure/anesthetic and documented any changes. Performed airway and anesthesia risk assessments. Anesthesia Type Anesthesia Type: MAC History Source History Obtained from:: Patient and Chart Anesthesia Focused Assessment* Temperature: 98.0 F Pulse Rate: 77 Blood Pressure: 137/54 Respiratory Rate: 20 Pulse Ox: 100 Oxygen Delivery Method: Room Air Airway Assessment Mouth opens: >3 cm Mallampati Score: II Teeth Condition: Chipped/Broken (Patient does have a chipped tooth on the bottom), Dentures (Patient has upper dentures.) and Missing (Patient has several missing teeth on the lower jaw.) Neck Range of motion (ROM): Full ROM Focused Labs Anesthesia Preop lab: CBC WBC 8.6 K/mm3 (4.4-11.0) 02/16/24 16:34 RBC 5.48 M/mm3 (4.2-5.4) H 02/16/24 16:34 Hgb 13.7 g/dL (12.0-15.0) 02/16/24 16:34 Hct 43.8 % (37-47) 02/16/24 16:34 Plt Count 233 K/mm3 (150-450) 02/16/24 16:34 CHEMISTRY Potassium 3.3 mmol/L (3.5-5.1) L 02/16/24 16:34 Sodium 136 mmol/L (136-145) 02/16/24 16:34 Magnesium 1.8 mg/dL (1.6-2.6) 07/30/19 06:20 BUN 16 mg/dL (7-18) 02/16/24 16:34 Creatinine 0.77 mg/dL (0.55-1.02) 02/16/24 16:34 Glucose 111 mg/dL (74-106) H 02/16/24 16:34 POC Glucose 126 mg/dL (74-106) H 02/26/24 11:10 COAG PT 13.3 SECONDS (11.7-14.9) 02/16/24 16:34 Pre-Assessment Diagnosis/Proposed Procedure Planned Operative Procedure(s): CSCOPE Anesthesia History Anesthesia History - furniture reproducer: Anesthesia History - furniture reproducer Hx Hospitalization No 02/24/24 15:48 Any Problems With Anesthesia No 02/24/24 15:48 Cholinesterase deficiency No 02/24/24 15:48 You/Your Family Experience No 02/24/24 15:48 fever (hyperthermia) with Relationship Recent Exposure to Contagious No 02/26/24 11:14 Disease Does patient have nerve No 02/24/24 15:48 stimulator Patient instructed to have device shut off --Does patient have Pacemaker No 02/26/24 11:14 or ICD? When Was Last Pacemaker Check QUESTION #4 FULL TEXT: You/Your Family Experience fever (hyperthermia) with Anesthesia Last Oral Intake Last Oral intake: Last Oral Intake NPO since 07:00 02/26/24 11:14 Meds taken in AM with sips of water? Meds patient instructed to take am of surgery Any additional information?: Yes NPO since: 07:00 (Patient finished prep at 7 AM.) PONV PONV - furniture reproducer: PONV - furniture reproducer Female Yes 02/24/24 15:48 HX of Motion Sickness No 02/24/24 15:48 HX of N/V After Surgery No 02/24/24 15:48 Non-Smoker Yes 02/24/24 15:48 Duration of Surgery greater No 02/24/24 15:48 than 60 minutes Number of Risk Factors 2 02/24/24 15:48 PONV Score Moderate Risk 02/24/24 15:48 Height & Weight Height & Weight: Anesthesia: Height & Weight Height 5 ft 4 in 02/26/24 11:14 Weight: 82.2 kg 02/26/24 11:14 Body Mass Index (BMI) 31.1 02/26/24 11:14 Respiratory Assessment Respiratory Assessment - furniture reproducer: Respiratory Tract Infection Hx - furniture reproducer Hx Respiratory Tract Infection No 02/24/24 15:48 STOP Sleep Apnea STOP Sleep Apnea - furniture reproducer: STOP Sleep Apnea - furniture reproducer Hx Hypertension Yes: CONTROLLED WITH MED 02/24/24 15:48 Hx Sleep Apnea No 02/24/24 15:48 CPAP No 02/24/24 15:48 BIPAP Do you snore loudly (louder No 02/24/24 15:48 than talking or can be heard Do you often feel tired/ No 02/24/24 15:48 fatigued/ sleepy during daytime? Has anyone observed you stop No 02/24/24 15:48 breathing during sleep? STOP Results Negative 02/24/24 15:48 QUESTION #5 FULL TEXT : Do you snore loudly (louder than talking or can be heard through closed doors)? 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 Specify any problems Hx of Preganancy in last 3 N/A 02/24/24 15:48 Months Nurse Filling Out Transfusion NBUCHER 02/24/24 15:48 & Questions: Date: 02/24/24 02/24/24 15:48 Time: 15:50 02/24/24 15:48 Patient unable to answer at this time (ie. confused, unrespo /Reproduction History /Reproductive History - furniture reproducer: /Reproductive Hx- furniture reproducer Hx Now No 02/24/24 15:48 Gestational Age (in weeks): EDC: Hx Hx Para Hx Section SAB No 02/24/24 15:48 PFSH Medical History Arthritis Colitis Heartburn Migraines Wears glasses Wears dentures Anxiety Diabetes Rheumatoid arthritis Hx of psoriatic arthritis Low iron DVT (deep venous thrombosis) High cholesterol Easy bruising Restless legs Back pain Syncope Difficulty swallowing Dietary restriction History of hiatal hernia History of ulceration History of Crohn's disease Gastric reflux Former smoker Asthma Shortness of breath on exertion Leg cramps History of pain when walking History of edema History of stress test Hypertension Diverticulitis Crohn disease Bronchitis Back pain Bloody stools Difficulty balancing Knee pain Diarrhea Chest pain Stomach ulcer Shoulder pain History of arthritis History of hypertension Home Medications ?Medication ?Instructions ?Recorded ?Last Taken ?Type amitriptyline 75 mg tablet 100 mg PO QHS MOOD 06/04/17 02/25/24 History folic acid 1 mg tablet 2 mg PO DAILY@0800 SUPPLEMENT 06/04/17 02/25/24 History glipizide 5 mg tablet, extended 5 mg PO DAILY DM 07/28/19 02/25/24 History release 24 hr omeprazole 40 mg capsule,delayed 40 mg PO DAILY GERD 07/28/19 02/25/24 History release hydrochlorothiazide 12.5 mg capsule 12.5 mg PO DAILY 12/07/19 02/25/24 History montelukast 10 mg tablet 10 mg PO QPM #90 tabs 09/18/20 02/25/24 Rx empagliflozin 10 mg tablet 10 mg PO DAILY 12/30/21 02/25/24 History (Jardiance) albuterol sulfate 90 mcg/actuation 2 puff inhalation Q4H PRN 04/22/22 Unknown Rx aerosol inhaler shortness of breath or wheezing #8.5 grams atorvastatin 10 mg tablet 10 mg PO DAILY 02/01/23 02/25/24 History lisinopril 5 mg tablet 5 mg PO DAILY 02/01/23 02/25/24 History potassium chloride 8 mEq 8 meq PO DAILY 02/01/23 02/25/24 History capsule,extended release fluticasone furoate 200 1 inh inhalation QDAY #60 ea 02/04/23 Unknown Rx mcg-vilanterol 25 mcg/dose inhalation powder (Breo Ellipta) hyoscyamine sulfate 0.125 mg tablet 0.125 mg PO BID-QID PRN dyspepsia 05/28/23 Unknown Rx 30 days #180 tabs ustekinumab 90 mg/mL subcutaneous See Rx Instructions .Route 11/19/23 Unknown Rx syringe (Audio Shacklara) .COMPLEX #1 mL bupropion HCl 100 mg tablet,12 hr 100 mg PO BID #180 ea 02/05/24 02/25/24 Rx sustained-release nadolol 20 mg tablet 20 mg PO ONCE #90 tabs 02/18/24 02/25/24 Rx rifaximin 550 mg tablet (Xifaxan) 550 mg PO BID #90 tabs 02/18/24 02/25/24 Rx Allergy/AdvReac Type Severity Reaction Status Date / Time doxycycline Allergy Hives Verified 02/26/24 11:11 dyclonine Allergy Rash Verified 02/26/24 11:11 etodolac Allergy Rash Verified 02/26/24 11:11 Sulfa (Sulfonamide Allergy Rash Verified 02/26/24 11:11 Antibiotics) adhesive tape AdvReac Itching Verified 02/26/24 11:11 magnesium AdvReac Angioedema Verified 02/26/24 11:11 Family History Father Heart disease Brother Heart disease COPD (chronic obstructive pulmonary disease) Diabetes Mother Cancer Breast Diabetes Sister Diabetes Surgical History Hx of dilation and curettage History of esophagogastroduodenoscopy (EGD) Hx of colonoscopy Hx of arthroscopy of right knee Hx of arthroscopy of left knee Hx of hysterectomy History of carpal tunnel surgery of right wrist History of carpal tunnel surgery of left wrist Hx of tonsillectomy History of cholecystectomy History of knee replacement Social History household members: spouse housing: house Smoking Status: Former smoker quit date: 04/06/03 Tobacco: How many years used: 32 Review of Systems (Anesthesia) ROS Narrative System reviewed and no additional complaints, except as documented.
--- NOTE | 2024-02-26 12:27 | PCM.HP.BLA ---
History and Physical Date of Admission: 02/26/24 SHANE RODRIGUEZ, is a 63 F who presents to the office today for f/u. Prior workup: ? Esophagram 12.14.19 without acute/chronic finding *BGI established 12.28.20 Crohn?s disease diagnosed 15 years prior with symptom onset 20 years prior without surgical intervention required. Cholecystectomy at age 12; DMII diagnosed five years prior but is struggling to maintain BS control. Current symptoms include bloating, abdominal cramping, loose stools, reflux, dysphagia. Crohn?s currently treated with Stelara. Humira failed, remicade caused reaction. ? EGD/colonoscopy 01.24.21 EGD Ilir ring, Olga 50F; LA Grade A esophagitis; medium hiatal hernia; gastritis. Metaplasia, H.Pylori neg ? Colonoscopy CD score 8 with findings in ileum and left colon; TA polyp. No IBD pathology OV 11.07.25 with ongoing stomach pain and urgent loose stools OV 08.21. doing well overall. Pulmonology addressed cough and has had improvement. Swallowing has improved since EGD, omeprazole 40mg QD continues. OV 11.13.21 Crohn?s disease well controlled with Stelara Q8W. OV 08.15.22 will consider increasing Stelara to Q4W. Stelara Q4W denied by insurance and appeal denied; resume Q8W and start budesonide with possible IBS treatment in the future. OV 05.28.23 will have intermittent loose stools that is triggered by food/drink. OV 11.25.23 pt reports that she is feeling well overall and denies GI symptoms of concern at this time. Pt reports that she was supposed to have her last injection 2 Sundays ago but was unable to get her medication and it should be in this Thursday. Pt reports she will occasionally get a sharp pain in her stomach, but believes this is related to what she is eating. OV 02.16.24 Pt is here for f/u to discuss results of liver biopsy which was consistent with cirrhosis. She has been feeling well with her Crohns with no flares. SHe has been feeling fatigued. Liver biopsy 10.25.24; consistent with cirrhosis ROS Const Constitutional: Positive for fatigue, frequent falls, headache(s) and weight change; No fever(s) ENT ENT: Positive for headache(s) and difficulty swallowing Cardio Cardiology: Positive for leg pain with exertion Gastro GI: Positive for abdominal pain, bloating, change in bowel habits, diarrhea, heartburn, difficulty swallowing, excessive flatus, Blood in stool and nausea/dyspepsia; No belching, change in stool character, coffee ground emesis, constipation, cramping, feeling full early, incontinent of stools, Vomiting blood/hematemesis, loose stools, Black,tarry stools, pain with swallowing, vomiting or other Musc Musculoskeletal: Positive for abnormal gait, joint pain, back pain, joint swelling, muscle cramps, muscle weakness, numbness, stiffness, tingling, Arthritis, sciatica, restless legs, leg pain at night and leg pain with exertion Skin Skin: Positive for dry skin and itchy eyes; No yellowing of the eye Neuro Neurology: Positive for abnormal gait, frequent falls, headache(s), numbness, tingling and restless legs Psych Psychiatric: Positive for anxiety and Positive for depression Endo Endocrine: Positive for fatigue and weight change Aller/Imm Allergy/Immunologic: Positive for itchy eyes Sadi/Lymp Hematologic/Lymphatic: Positive for easy bruising; No easy bleeding Exam Const General: cooperative and comfortable Nutritional Appearance: average body habitus and well nourished [facility] Head: normal to inspection Ears: hearing grossly normal bilaterally Nose: external nose normal Face and sinus: normal facial exam Mouth: oral mucosae normal Throat: posterior oropharynx normal Eyes General: appearance normal, both eyes and all related structures Neck Neck: normal visual inspection Chest Chest palpation & inspection: normal inspection of the chest and normal palpation of entire chest wall Resp Effort & Inspection: normal respiratory effort Auscultation: Bilateral: Clear to Auscultation Cardio Palpation: normal PMI Rate: regular rate Rhythm: regular rhythm GI Inspection: normal to inspection Auscultation: normal bowel sounds Percussion: normal to percussion Palpation: no hepatosplenomegaly Skin General: no rashes or lesions noted Neuro General: patient alert Extrem General: normal to inspection Psych Affect: normal affect Assessment and Plan Assessment and Plan (1) Cirrhosis: Status: Acute (2) Crohn's colitis: Status: Chronic Plan: This is a 63 yo female pt with Crohns disease here for f/u. SHE has no concerns with her Crohns and most recently CRP, ESR and calprotectin was wnl. She did however have a liver biopsy consistent with cirrhosis. All blood work has been normal. Child class A and a MELD score of 6. I will discuss treatment with Dr. More and contact pt to go over this. She has a hx of fatty liver but no hx of alcohol use. I will order further blood work in the mean time. -Will disccuss with Dr. More and contact pt about treatment plan -Continue Stelara -F/u in 6 months Orders: Orders AFP, Tumor Marker Today K74.60 - Unspecified cirrhosis of liver Ammonia Today K74.60 - Unspecified cirrhosis of liver CHANI Comprehensive Panel Today K74.60 - Unspecified cirrhosis of liver ANCA Today K74.60 - Unspecified cirrhosis of liver Angiotensin Convert Enzyme Today K74.60 - Unspecified cirrhosis of liver Anti-Mitochondrial AB Today K74.60 - Unspecified cirrhosis of liver Anti-Smooth Muscle ABS Today K74.60 - Unspecified cirrhosis of liver CBC W/Diff, Automated Today K74.60 - Unspecified cirrhosis of liver Ceruloplasmin Today K74.60 - Unspecified cirrhosis of liver Comprehensive Metabolic Profil Today K74.60 - Unspecified cirrhosis of liver Copper, Serum or Plasma Today K74.60 - Unspecified cirrhosis of liver CRP Today K74.60 - Unspecified cirrhosis of liver Erythrocyte Sed Rate Today K74.60 - Unspecified cirrhosis of liver Ferritin Today K74.60 - Unspecified cirrhosis of liver Haptoglobin Today K74.60 - Unspecified cirrhosis of liver Hemoglobin A1c Today K74.60 - Unspecified cirrhosis of liver Hepatitis Panel Acute Today K74.60 - Unspecified cirrhosis of liver HIV - [facility] Today K74.60 - Unspecified cirrhosis of liver LDH Today K74.60 - Unspecified cirrhosis of liver Prothrombin Time w/INR Today K74.60 - Unspecified cirrhosis of liver Transferrin Today K74.60 - Unspecified cirrhosis of liver Lipid Profile Today K74.60 - Unspecified cirrhosis of liver Iron Binding Capacity,Total Today K74.60 - Unspecified cirrhosis of liver I have examined the patient and the H&P has been reviewed. There are no clinical changes since date of exam.
--- NOTE | 2024-02-26 12:30 | COLBX_PTH ---
PATIENT: SHANE RODRIGUEZ LOC: EN U#:[id number] AGE/SX: 63/F ROOM: RE02/26/[address]: Dr. Jeff More DO : 1960 BED: DIS: 02/26/2024 SPEC #: [id number] RECD: 02/26/24 16:26 STATUS: KAYCEE JUSTA #: [id number] JAMI: 02/26/24 12:[address]: Jeff More DEPT: SURGICAL PATHOLOGY RECD BY: Judith Resendiz ENTERED: 02/29/24 11:04 SP TYPE: COLON BX GEE DR: Dr. Zach Null MD Tissues: A - Ileum, NOS B - Right colon C - Left colon D - Rectum, NOS Procedures: Surgery Specimen Level IV HEADER OPERATION: Colonoscopy with biopsy PRE-OP DIAGNOSIS: Cirrhosis, Crohn's colitis TISSUE SUBMITTED: A- Terminal ileum biopsy, B- Right side of colon biopsy, C- Left side of colon biopsy, D- Rectum biopsy MICROSCOPIC DIAGNOSIS A. Terminal ileum, biopsy: No pathologic change. B. Right side of colon, biopsy: No significant pathologic change. See comment. C. Left side of colon, biopsy: No significant pathologic change. See comment. D. Rectum, biopsy: No pathologic change. MEGHAN/ 03/01/2024 COMMENT B,C. Eosinophils are increased in the mucosa. The significance of this is unclear. Clinical correlation is suggested. MICROSCOPIC DESCRIPTION Slides are reviewed. GROSS DESCRIPTION A. Received in fixative is one container labeled with the patient's name and designated Terminal ileum biopsy. The specimen consists of two irregular fragments of light fall soft tissue that in aggregate measure 0.7 x 0.5 x 0.1 cm. The specimen is totally submitted in one cassette. B. Received in fixative is one container labeled with the patient's name and designated Right side of colon biopsy. The specimen consists of multiple irregular fragments of light fall soft tissue that in aggregate measure 1.5 x 0.5 x 0.1 cm. The specimen is totally submitted in one cassette. C. Received in fixative is one container labeled with the patient's name and designated Left side of colon biopsy. The specimen consists of multiple irregular fragments of light fall soft tissue that in aggregate measure 1.5 x 0.6 x 0.1 cm. The specimen is totally submitted in one cassette. D. Received in fixative is one container labeled with the patient's name and designated Rectum biopsy. The specimen consists of one irregular fragment of light fall soft tissue that measures 0.7 x 0.2 x 0.1 cm. The specimen is totally submitted in one cassette. 02/29/2024 TC:5 CPT:12832u6
--- NOTE | 2024-02-26 13:35 | PCM.POST.ANE ---
Anesthesia: Postop Eval I Current Vital Signs Temperature: 97.6 F Pulse Rate: 67 Blood Pressure: 91/32 Respiratory Rate: 16 Pulse Ox: 99 Oxygen Delivery Method: Room Air Assessment Airway patent: Yes Spontaneous unlabored respirations: Yes Mental status: Asleep nausea: No Vomiting: No Anesthesia Complication: No Fluid Hydration Crystalloid volume administer (ml): 40 Total IV fluid infused: 40 Progress Note Anesthesia document: Postop Eval 1 completed: Yes
--- NOTE | 2024-02-26 13:36 | OP.COLON_ITS ---
Patient Name: Leslie Reynolds Procedure Date: 02/26/2024 1:02 PM Date of : 1960 Age: 63 Procedure: Colonoscopy Indications: Crohn's disease of the small bowel and colon Providers: Jeff More DO Referring MD: Zach Null Medicines: Monitored Anesthesia Care Patient Profile: This is a 63 year old female. Refer to note in patient chart for documentation of history and physical. Last Colonoscopy: within the past 3 years. Complications: No immediate complications. Procedure: Pre-Anesthesia Assessment: - Prior to the procedure, a History and Physical was performed, and patient medications and allergies were reviewed. The patient is competent. The risks and benefits of the procedure and the sedation options and risks were discussed with the patient. All questions were answered and informed consent was obtained. Patient identification and proposed procedure were verified by the physician in the pre-procedure area. Mental Status Examination: alert and oriented. Airway Examination: normal oropharyngeal airway and neck mobility. Respiratory Examination: clear to auscultation. CV Examination: normal. Prophylactic Antibiotics: The patient does not require prophylactic antibiotics. Prior Anticoagulants: The patient has taken no anticoagulant or antiplatelet agents except for NSAID medication. ASA Grade Assessment: II - A patient with mild systemic disease. After reviewing the risks and benefits, the patient was deemed in satisfactory condition to undergo the procedure. The anesthesia plan was to use monitored anesthesia care (MAC). Immediately prior to administration of medications, the patient was re-assessed for adequacy to receive sedatives. The heart rate, respiratory rate, oxygen saturations, blood pressure, adequacy of pulmonary ventilation, and response to care were monitored throughout the procedure. The physical status of the patient was re-assessed after the procedure. After I obtained informed consent, the scope was passed under direct vision. Throughout the procedure, the patient's blood pressure, pulse, and oxygen saturations were monitored continuously. The Colonoscope was introduced through the anus and advanced to the terminal ileum. The colonoscopy was performed without difficulty. The patient tolerated the procedure well. The quality of the bowel preparation was adequate. The terminal ileum, ileocecal valve, appendiceal orifice, and rectum were photographed. Scope In: 1:14:00 PM Scope Withdrawal Time 0 hours 10 minutes 13 seconds Scope Out: 1:26:59 PM Total Procedure Duration Time 0 hours 12 minutes 59 seconds Findings: The perianal and digital rectal examinations were normal. Patchy mild inflammation characterized by congestion (edema) was found in the rectum, in the recto-sigmoid colon, at the splenic flexure and in the cecum. Biopsies were taken with a cold forceps for histology. Verification of patient identification for the specimen was done. Estimated blood loss was minimal. The terminal ileum appeared normal. Biopsies were taken with a cold forceps for histology. Verification of patient identification for the specimen was done. Estimated blood loss was minimal. A few small and large-mouthed diverticula were found in the recto-sigmoid colon and sigmoid colon. Impression: - Patchy mild inflammation was found in the rectum, in the recto-sigmoid colon, at the splenic flexure and in the cecum secondary to colitis. Biopsied. - The examined portion of the ileum was normal. Biopsied. Recommendation: - Discharge patient to home. - Resume previous diet. - Continue present medications. - Await pathology results. - Repeat colonoscopy in 1 year for surveillance. Procedure Code(s): --- Professional --- 09132, Colonoscopy, flexible; with biopsy, single or multiple CPT copyright 2021 [employer]. All rights reserved. The codes documented in this report are preliminary and upon graffiti cleaner review may be revised to meet current compliance requirements. Jeff More DO 02/26/2024 1:36:16 PM This report has been signed electronically. Number of Addenda: 0 Note Initiated On: 02/26/2024 1:02 PM
--- NOTE | 2024-02-26 13:36 | OP.CCLET_ITS ---
02/26/2024 Zach Null [address] [place] [address] Re : Colonoscopy procedure for Leslie Reynolds Dear Dr. Null This procedure was performed on Monday, February 26, 2024. My impressions and recommendations are as follows: Impressions : - Patchy mild inflammation was found in the rectum, in the recto-sigmoid colon, at the splenic flexure and in the cecum secondary to colitis. Biopsied. - The examined portion of the ileum was normal. Biopsied. Recommendations : - Discharge patient to home. - Resume previous diet. - Continue present medications. - Await pathology results. - Repeat colonoscopy in 1 year for surveillance. My findings are described in the full procedure note, which is enclosed. If I can be of further assistance, please feel free to contact me at . Sincerely, Jeff More, 02/26/2024 1:36:16 PM This report has been signed electronically.
--- NOTE | 2024-02-26 16:33 | PCM.POSTANE2 ---
Anesthesia Postop Eval I Sum Postop Eval Completion status Anesthesia document: Postop Eval 1 completed: Yes Anesthesia Postop Eval I Summary Anesthesia Postop Eval I Summary: Anesthesia Postop Eval I: Assessment Summary Airway patent Yes 02/26/24 13:36 [email or web address] Spontaneous unlabored Yes 02/26/24 13:36 [email or web address] respirations Mental status Asleep 02/26/24 13:36 [email or web address] nausea No 02/26/24 13:36 [email or web address] Vomiting No 02/26/24 13:36 [email or web address] Anesthesia Postop Eval I: Fluid Summary Crystalloid volume administer 40 02/26/24 13:36 [email or web address] (ml) Colloids volume administered ( ml) Blood Product volume administered (ml) Total IV fluid infused 40 02/26/24 13:36 [email or web address] Anesthesia Postop Eval I: Summary Notes Anesthesia Complication No 02/26/24 13:36 [email or web address] Anesthesia Complication Comment: Post-operative progress note Anesthesia: Postop Eval II Evaluation Mental status: Awake and Calm Pain Level: 0 nausea: No Vomiting: No Complications Anesthesia Complication: No
== END 2024-02-26 14:31 | disposition home or self-care (01) ==
LOC: EN 10:51 → AC 10:53
PROVIDERS: PCP Internal Medicine; Referring Provider Internal Medicine; Visit Provider Internal Medicine Gastroenterology
PROC: 0DJD8ZZ Inspection of Lower Intestinal Tract, Via Natural or Artificial Opening Endoscopic (ICD-10-PCS; CPT 45378; principal; 2024-02-26 12:25)
DX: K50.80 Crohn's disease of both small and large intestine without complications (principal); K74.60 Unspecified cirrhosis of liver; E11.9 Type 2 diabetes mellitus without complications; Z79.84 Long term (current) use of oral hypoglycemic drugs; Z79.899 Other long term (current) drug therapy; J45.909 Unspecified asthma, uncomplicated; I10 Essential (primary) hypertension
CPT/HCPCS: 45380; 82962; 88305; A4216; J2405

== ENCOUNTER 2024-04-27 07:30 | Emergency (ER) | payer OTHER, SELFPAY ==
[2024-04-27 07:31] VITALS: BP 171/73; PULSE 85; RESP 16; TEMP 36.8; O2SAT 100; BMI 31.8
--- NOTE | 2024-04-27 08:05 | EDS_ITS ---
HPI History of Present Illness Chief Complaint: Foreign Body Informant: patient Onset/Context/Timing Onset: Today Context: Sudden Onset Timing: Continuous Quality: Sharp Location: Throat Worsened by: Swallowing Relieved by: Nothing Narrative Narrative: Patient presents with difficulty swallowing that began this morning. Patient states she was at work today and was sitting in a meeting. Patient states she drank some water and felt like there was something stuck in her throat. Patient describes it as sharp. Patient states it is worse with swallowing. Patient states nothing seems to help with it. Patient denies any difficulty breathing. Patient denies any fevers or chills. Patient denies any cough. [facility] Medical History Arthritis Colitis Heartburn Migraines Wears glasses Wears dentures Anxiety Diabetes Rheumatoid arthritis Hx of psoriatic arthritis Low iron DVT (deep venous thrombosis) High cholesterol Easy bruising Restless legs Back pain Syncope Difficulty swallowing Dietary restriction History of hiatal hernia History of ulceration History of Crohn's disease Gastric reflux Former smoker Asthma Shortness of breath on exertion Leg cramps History of pain when walking History of edema History of stress test Hypertension Diverticulitis Crohn disease Bronchitis Back pain Bloody stools Difficulty balancing Knee pain Diarrhea Chest pain Stomach ulcer Shoulder pain History of arthritis History of hypertension Home Medications ?Medication ?Instructions ?Recorded ?Last Taken ?Type amitriptyline 75 mg tablet 100 mg PO QHS MOOD 06/04/17 02/25/24 History folic acid 1 mg tablet 2 mg PO DAILY@0800 SUPPLEMENT 06/04/17 02/25/24 History glipizide 5 mg tablet, extended 5 mg PO DAILY DM 07/28/19 02/25/24 History release 24 hr omeprazole 40 mg capsule,delayed 40 mg PO DAILY GERD 07/28/19 02/25/24 History release hydrochlorothiazide 12.5 mg capsule 12.5 mg PO DAILY 12/07/19 02/25/24 History montelukast 10 mg tablet 10 mg PO QPM #90 tabs 09/18/20 02/25/24 Rx empagliflozin 10 mg tablet 10 mg PO DAILY 12/30/21 02/25/24 History (Jardiance) atorvastatin 10 mg tablet 10 mg PO DAILY 02/01/23 02/25/24 History lisinopril 5 mg tablet 5 mg PO DAILY 02/01/23 02/25/24 History potassium chloride 8 mEq 8 meq PO DAILY 02/01/23 02/25/24 History capsule,extended release fluticasone furoate 200 1 inh inhalation QDAY #60 ea 02/04/23 Unknown Rx mcg-vilanterol 25 mcg/dose inhalation powder (Breo Ellipta) hyoscyamine sulfate 0.125 mg tablet 0.125 mg PO BID-QID PRN dyspepsia 05/28/23 Unknown Rx 30 days #180 tabs ustekinumab 90 mg/mL subcutaneous See Rx Instructions .Route 11/19/23 Unknown Rx syringe (Stelara) .COMPLEX #1 mL nadolol 20 mg tablet 20 mg PO ONCE #90 tabs 02/18/24 02/25/24 Rx bupropion HCl 100 mg tablet,12 hr 100 mg PO BID #180 ea 03/15/24 Unknown Rx sustained-release lactulose 20 gram/30 mL oral 20 g (30 mL) PO QDAY #1,200 mL 03/22/24 Unknown Rx solution albuterol sulfate 90 mcg/actuation 2 puff inhalation Q4H PRN 04/22/24 Unknown Rx aerosol inhaler shortness of breath or wheezing #8.[address] #1 ea 04/22/24 Unknown Rx Allergy/AdvReac Type Severity Reaction Status Date / Time doxycycline Allergy Hives Verified 04/27/24 07:33 dyclonine Allergy Rash Verified 04/27/24 07:33 etodolac Allergy Rash Verified 04/27/24 07:33 Sulfa (Sulfonamide Allergy Rash Verified 04/27/24 07:33 Antibiotics) adhesive tape AdvReac Itching Verified 04/27/24 07:33 magnesium AdvReac Angioedema Verified 04/27/24 07:33 Family History Father Heart disease Brother Heart disease COPD (chronic obstructive pulmonary disease) Diabetes Mother Cancer Breast Diabetes Sister Diabetes Surgical History Hx of dilation and curettage History of esophagogastroduodenoscopy (EGD) Hx of colonoscopy Hx of arthroscopy of right knee Hx of arthroscopy of left knee Hx of hysterectomy History of carpal tunnel surgery of right wrist History of carpal tunnel surgery of left wrist Hx of tonsillectomy History of cholecystectomy History of knee replacement Social History household members: spouse housing: house Smoking Status: Former smoker quit date: 04/06/03 Tobacco: How many years used: 32 ROS ROS ED Constitutional Constitutional ED: Denies chills or fever(s) Eyes Eyes: Denies blurry vision or change in vision ENT ENT ED: Reports sore throat; Denies rhinorrhea Cardiovascular Cardiovascular: Denies chest pain or palpitations Respiratory/Chest Respiratory/Chest: Denies cough or dyspnea Gastrointestinal Gastrointestinal: Denies nausea or vomiting Genitourinary Genitourinary ED: Denies dysuria or hematuria Musculoskeletal Musculoskeletal: Reports back pain; Denies neck pain Integumentary Denies abscess or rash Neurologic Neurologic: Denies headache(s) or weakness Allergic/Immunologic Allergic/Immunologic ED: Denies mouth swelling or urticaria EXAM Physical Exam Const Vital Signs: 04/27/24 07:31 04/27/24 07:31 04/27/24 09:31 Temperature 98.2 F Temperature Source Oral Pulse Rate 85 71 Respiratory Rate 16 16 Respiratory Effort Normal Non-Labored Respiratory Pattern Normal Blood Pressure 171/73 H 144/86 H Blood Pressure Mean 105 105 Pulse Ox 100 98 Oxygen Delivery Method Room Air Positive well nourished and well developed General Appearance ED: well developed and NAD HEENT Reports moist mucous membranes Neck supple and no JVD Resp normal respiratory effort and clear to auscultation bilaterally Cardio regular rate and regular rhythm GI non-tender and non-distended Palpation: soft Neuro oriented x3, CN's II-XII intact bilaterally and no sensory deficits noted Sensorium / Orientation: alert Motor Exam: strength 5/5 throughout Psych mental status grossly normal [facility] Treatment and Re-Evaluation :: Patient was given a dose of glucagon IV. Patient had minimal improvement with this. Patient was given viscous lidocaine. Patient able to swallow this. Patient was given p.o. fluids and was able to swallow without difficulty. Patient was given crackers. Patient states she was able to swallow them. Patient states she had some irritation when she was swallowing crackers but they did not get stuck in her throat. Patient was instructed to start with a soft diet. Patient was instructed to advance as tolerated. Patient was instructed to follow-up with her primary care physician in 5 to 7 days. Patient was instructed to return if worse in any way. Patient understood and was agreeable with the plan. All questions were answered. Discharge Plan Triage Chief Complaint: Foreign Body ED Provider: Aroldo Crandall Dx/Rx/DC Orders Clinical Impression: Odynophagia, Type II diabetes mellitus, Hypertension Instructions: ED Soft Diet, ED Dysphagia (Adult) Prescriptions: No Action hydrochlorothiazide 12.5 mg capsule 12.5 mg PO DAILY montelukast 10 mg tablet 10 mg PO QPM Qty: 90 3RF Jardiance 10 mg tablet 10 mg PO DAILY Breo Ellipta 200-25 mcg/dose blister with device 1 inh INHALATION QDAY Qty: 60 11RF Rx Instructions: after inhalation, rinse mouth with water and spit out; do not swallow hyoscyamine sulfate 0.125 mg tablet 0.125 mg PO BID-QID PRN (Reason: dyspepsia) 30 Days Qty: 180 3RF amitriptyline 75 MG tablet 100 mg PO QHS folic acid 1 MG tablet 2 mg PO DAILY@0800 glipizide 5 MG tablet extended release 24hr 5 mg PO DAILY omeprazole 40 MG capsule,delayed release(DR/EC) 40 mg PO DAILY atorvastatin 10 mg tablet 10 mg PO DAILY Patient Comments: Take 1 tablet by mouthidaily at bedtime. For cholesterol. lisinopril 5 mg tablet 5 mg PO DAILY Patient Comments: TAKE 1 TABLET BY MOUTHCONCE DAILY potassium chloride 8 mEq capsule, extended release 8 meq PO DAILY Patient Comments: Take 1 capsule by mouthndaily with breakfast. Stelara 90 mg/mL syringe See Rx Instructions .ROUTE .COMPLEX Qty: 1 6RF Dose Instruction: INJECT 90 MG UNDER THE SKIN EVERY 8 WEEKS MAINTENANCE DOSE STARTING 8 WEEKS AFTER INTRAVENOUS INDUCTION DOSE Rx Instructions: INJECT 90 MG UNDER THE SKIN EVERY 8 weeks nadolol 20 mg tablet 20 mg PO ONCE Qty: 90 3RF bupropion HCl 100 mg tablet sustained-release 12 hr 100 mg PO BID Qty: 180 1RF lactulose 20 gram/30 mL solution 20 g PO QDAY Qty: 1200 2RF albuterol sulfate 90 mcg/actuation HFA aerosol inhaler 2 puff inhalation Q4H PRN (Reason: shortness of breath or wheezing) Qty: 8.5 6RF Rx Instructions: administer with spacer (DME) handicap placecard See Rx Instructions .Route .MEDSUPPLY Qty: 1 0RF Rx Instructions: 2029 Primary Care Provider: Zach Null Referrals: Zach Null MD [Primary Care Provider] - 5-7 Days Print Language: Indonesian Disposition Disposition: Home, Self Care
[2024-04-27] MEDS: Glucagon 1 MG/ML Syringe IV (08:31)
[2024-04-27 09:31] VITALS: BP 144/86; PULSE 71; RESP 16; O2SAT 98
[2024-04-27] MEDS: Lidocaine 2% Viscous15 ML UDC 15 ML PO (10:25)
[2024-04-27 11:51] VITALS: BP 135/76; PULSE 82; RESP 15; TEMP 36.3; O2SAT 98
== END 2024-04-27 11:52 | disposition home or self-care (01) ==
PROVIDERS: Emergency Provider Emergency Medicine; PCP Internal Medicine; Visit Provider Emergency Medicine
DX: R13.10 Dysphagia, unspecified (principal); M06.9 Rheumatoid arthritis, unspecified; E11.9 Type 2 diabetes mellitus without complications; I10 Essential (primary) hypertension; E78.00 Pure hypercholesterolemia, unspecified; Z79.84 Long term (current) use of oral hypoglycemic drugs; Z79.85 Long-term (current) use of injectable non-insulin antidiabetic drugs; Z79.899 Other long term (current) drug therapy; Z87.891 Personal history of nicotine dependence
CPT/HCPCS: 96374; 99283; A4216; J1610

== ENCOUNTER → 2024-05-03 | Outpatient (CLI) | payer OTHER, SELFPAY ==
--- NOTE | 2024-05-03 08:20 | RAD_ITS ---
PROCEDURE: RIBS UNIL 2V NO CXR REASON FOR EXAM: Right rib pain following a recent fall. Dyspnea. TECHNIQUE: Frontal and bilateral oblique views of the bilateral ribs. COMPARISON: Comparison is made with prior study dated August 11, 2022. FINDINGS: No displaced rib fractures are identified. No suspicious lytic or blastic rib lesions. RAD/Ribs Unil 2V No CXR IMPRESSION: NO EVIDENCE OF ACUTE RIB FRACTURE OR PNEUMOTHORAX. Reading Location: [place] [id number]
--- NOTE | 2024-05-03 09:48 | RAD_ITS ---
PROCEDURE: CHEST PA AND LATERAL REASON FOR EXAM: Rib pain. Fell on right side this morning. TECHNIQUE: Single frontal image including the chest and abdomen. COMPARISON: Right rib series of 04/2024 and PA chest x-ray of 08/11/2022. RAD/Chest PA and Lateral IMPRESSION: Stable right hemidiaphragm elevation and, also with stable tenting. No pleural effusion or pneumothorax is seen. Lungs appear clear of acute disease, and unchanged. The cardiomediastinal silhouette is stable, without evidence of cardiomegaly. Jynq-bd-ojsryijl degenerative changes of the visualized spine are seen, along w ith thoracic DISH. No acute fracture is evident. If clinical concern persists, short-term follow-up imaging may be obtained to r ule out a currently occult fracture. Reading Location: [id number]
== END | disposition home or self-care (01) ==
LOC: RAD 08:20
PROVIDERS: PCP Internal Medicine; Referring Provider Chiropractor; Visit Provider Chiropractor
DX: R07.89 Other chest pain (principal)
CPT/HCPCS: 71046; 71100

== ENCOUNTER → 2024-06-15 | Outpatient (CLI) | payer OTHER, SELFPAY ==
--- NOTE | 2024-06-15 15:50 | RAD_ITS ---
PROCEDURE: Lumbar spine radiographs REASON FOR EXAM: PAIN TECHNIQUE: Four views of the lumbar spine COMPARISON: None. FINDINGS: See impression RAD/L/S Spine Min 4 Views IMPRESSION: Trace anterolisthesis of L3-4 and L4-5. No significant scoliosis. Mild chroni c appearing compression deformity of the superior endplate of L4. Remaining vertebral body heights are preserved. Veuq-tx-sxtqy ate multilevel disc space narrowing, greatest at L5-S1. Moaq-oq-uvsgvlda multilevel facet arthropathy, greatest at L4-5. Mild degenerative changes of the sacroiliac joints and hips. Negative for abnormal motion. Reading Location: [facility]
== END | disposition home or self-care (01) ==
LOC: MTLAB 15:50 → MTRAD 15:51
PROVIDERS: PCP Internal Medicine; Referring Provider Student in an Organized Health Care Education/Training Program; Visit Provider Student in an Organized Health Care Education/Training Program
DX: M54.50 Low back pain, unspecified (principal)
CPT/HCPCS: 72110

== ENCOUNTER → 2024-06-27 | Outpatient (CLI) | payer OTHER, SELFPAY ==
--- NOTE | 2024-06-27 18:56 | MRI_ITS ---
PROCEDURE: SPINE LUMBAR (ROUTINE) 06/27/2024 REASON FOR EXAM: 63-year-old female, low back pain into tailbone x3 months. History of radiculopathy and spondylolisthesis. No surgery. TECHNIQUE: Multiplaner MRI of the lumbar spine performed without contrast. Multiple pulse sequences were obtained. COMPARISON: L-spine radiographs 06/15/2024. FINDINGS: Vertebrae: Chronic Schmorl's node within the superior L3 vertebral body, asymmetric to the left. Chronic vertebral body height loss of the superior L4 endplate. The vertebral body heights are otherwise maintained. No abnormal bone marrow signal. Alignment: Grade 1 anterolisthesis of L4 onto L5. Conus Medullaris: Normal in signal, terminating at the L1 vertebral body. L1-2: Unremarkable L2-3: Mild disk bulge resulting in mild left neural foraminal stenosis. No central canal stenosis. L3-4: Moderate disk space narrowing with moderate symmetric disk bulge. Ligamentum flavum thickening and facet arthrosis results in moderate central and moderate bilateral neural foraminal stenosis. L4-5: Listhesis, moderate disc space narrowing and posterior disc bulging, ligamentum flavum thickening and facet arthrosis results in severe central, severe left neural foraminal and mild right neural foraminal stenosis. L5-S1: Severe loss of the disk space height with posterior disc ossification, asymmetric to the left. Additional ligamentum flavum hypertrophy and facet hypertrophy resulting in moderate central and moderate bilateral neural foraminal stenosis. Sacrum: The bilateral SI joints are grossly unremarkable. MRI/Spine Lumbar (Routine) IMPRESSION: Degenerative changes resulting in multilevel central and neural foraminal steno sis as described. Reading Location: [id number]
== END | disposition home or self-care (01) ==
LOC: MRI 08:56
PROVIDERS: PCP Internal Medicine; Referring Provider Student in an Organized Health Care Education/Training Program; Visit Provider Student in an Organized Health Care Education/Training Program
DX: M54.50 Low back pain, unspecified (principal)
CPT/HCPCS: 72148

== ENCOUNTER → 2024-07-21 | Outpatient (CLI) | payer OTHER, SELFPAY ==
[2024-07-21 09:15] LABS: Hemoglobin A1c 7.1 % (<=5.6)
[2024-07-21 09:21] LABS: Anion Gap 12 (5-15); BUN 14 mg/dL (4-19); BUN/Creat Ratio 19.6 RATIO (10-20); Calcium,Total 9.5 mg/dL (7.6-11.0); Carbon Dioxide 24.5 mmol/L (21.0-32.0); Chloride 103 mmol/L (98-108); Creatinine, Serum 0.71 mg/dL (0.70-1.20); EST Glomerular Filtration Rate 95 (>60); Glucose 198 mg/dL (70-99); Potassium 4.4 mmol/L (3.3-5.1); Sodium Level 139 mmol/L (133-145)
== END | disposition home or self-care (01) ==
LOC: LAB 07:59
PROVIDERS: PCP Internal Medicine; Referring Provider Internal Medicine; Visit Provider Internal Medicine
DX: E11.40 Type 2 diabetes mellitus with diabetic neuropathy, unspecified (principal)
CPT/HCPCS: 36415; 80048; 83036

== ENCOUNTER → 2024-07-29 | Outpatient (CLI) | payer OTHER, SELFPAY ==
--- NOTE | 2024-07-29 12:03 | BI_ITS ---
EXAM: SCRN MAMM (CAD)W/PRAVEENA BILAT 07/29/2024 CLINICAL HISTORY: F, Age 63 y/o , SCREENING TECHNIQUE: Bilateral screening digital breast tomosynthesis with 2D and 3D images. Computer aided detection. COMPARISON: Prior exam(s) dated 04/14/2023. FINDINGS: TISSUE DENSITY: The breast tissue is composed of scattered area of fibroglandular density. Bilateral Breast Mammographic Findings: No significant masses, calcifications or other abnormalities are identified. BI/SCRN MAMM (CAD)W/PRAVEENA BILAT IMPRESSION: Right Breast: BIRADS 1 NEGATIVE. Left Breast: BIRADS 1 NEGATIVE. OVERALL FINAL ASSESSMENT: BIRADS 1 NEGATIVE. RECOMMENDATION: Routine annual follow-up in 1 Year A letter with findings and recommendations will be mailed to the patient. Reading Location: [facility]
== END | disposition home or self-care (01) ==
PROVIDERS: PCP Internal Medicine; Referring Provider Internal Medicine; Visit Provider Internal Medicine
DX: Z12.31 Encounter for screening mammogram for malignant neoplasm of breast (principal)
CPT/HCPCS: 77063; 77067

== ENCOUNTER → 2024-08-08 | Outpatient (CLI) | payer OTHER, SELFPAY ==
--- NOTE | 2024-08-08 16:36 | CT_ITS ---
PROCEDURE: ABDOMEN W/WO IV CONTRAST 08/08/2024 REASON FOR EXAM: LIVER LESION TECHNIQUE: Abdomen CT with intravenous contrast. Multiplanar and multisequence images were obtained. One or more dose reduction techniques were used (e.g., Automated exposure control, adjustment of the mA and/or kV according to patient size, use of iterative reconstruction technique. PATIENT PREPARATION: Per protocol CONTRAST: 100 mL Isovue-300 RADIATION DOSE SUMMARY: CTDlvol: 25.1 mGy DLP: 2561 mGycm COMPARISON: Abdominal ultrasound on 01/22/2024, CT abdomen and pelvis 12/03/2018 FINDINGS: Lung bases: Unremarkable Liver: No discrete hepatic lesion. The liver is slightly hypoattenuating. There is subtle hyperdensity on all sequences near the gallbladder fossa (series 3, image 32) and falciform ligament (image 26), favored to be areas of fatty sparing. Gallbladder: Surgically absent. Spleen: Unremarkable Pancreas: Unremarkable Adrenals: Unremarkable Kidneys: No stone or hydronephrosis. Bowel: No obstruction or inflammation of the visualized portions. Lymph nodes: No significant lymphadenopathy. Vasculature: Mild diffuse atherosclerotic calcification. Peritoneum / Retroperitoneum: Unremarkable Bones: Degenerative changes of the spine. Grade 1 anterolisthesis of L4 on L5. Schmorl's node formation at L3 and L4. CT/Abdomen W/WO IV Contrast IMPRESSION: 1. No discrete hepatic lesion is identified as was suggested on ultrasound. R ecommend continued screening if patient has risk factors for hepatic malignancy. 2. Hepatic steatosis. Reading Location: [id number]
== END | disposition home or self-care (01) ==
LOC: CT 16:34
PROVIDERS: PCP Internal Medicine; Referring Provider Student in an Organized Health Care Education/Training Program; Visit Provider Student in an Organized Health Care Education/Training Program
DX: K76.9 Liver disease, unspecified (principal)
CPT/HCPCS: 74170; Q9967

== ENCOUNTER 2024-10-20 12:00 | Outpatient (RCR) | payer OTHER, SELFPAY ==
--- NOTE | 2024-08-01 13:24 | HP.PTEVAL_ITS ---
Patient's Visit Information Visit Information Visit Information: SHANE RODRIGUEZ is a 63 year old F referred to Physical Therapy by RAYSA De Leon with a diagnosis of LUMBAR AND CERVICAL RADICULOPATHY. 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 Disability: NO Present symptoms: LOW BACK PAIN. R HIP PAIN. R KNEE PAIN. INTERMITTENT R THIGH AND TOE NUMBNESS AND TINGLING. LOWER R LEG HURTS SOMETIMES TOO. DENIES LLE SX'S. PATIENTS REPORTS HER MAIN ISSUE IS HER LOW BACK BUT SHE WOULD LIKE TO ADDRESS HER NECK IN THE FUTURE. Present since: ABOUT 6 MONTHS AGO Pain Scale: WORST 6/10, LEAST 2/10 Currently: 2/10 Is it getting better, worse or staying the same: GETTING WORSE Commenced as a result of: FELL OFF A LADDER AT HOME IN BEDROOM WHILE PAINTING Symptoms at onset: R HIP AND LEG PAIN Worse: WORK, BEING FEET ALL DAY, BENDING, TRYING TO SLEEP ON R SIDE, TRYING TO SLEEP AT NIGHT - TOSS AND TURN ALL NIGHT. Better: IBUPROFEN, HEATING PAD ON LOW BACK AND R HIP, STRETCHES Disturbed sleep: YES Previous history/Previous treatment: A FEW WEEKS OF CHIROPRACTIC TREATMENTS WITH DR. LIGN - TEMPORARY RELIEF ONLY. NO CELIA'S. NO BACK SURGERY. NO HIP SURGERY. NO PHYSICAL THERAPY FOR SPINE. Treatment this episode: IBUPROFEN AND TYLONOL. PAIN MGMT AND PT CONSULTS ORDERED. Coughing/sneezing/straining: POSITIVE FOR INCREASED PAIN ESPECIALLY SNEEZING. Gait: LAST FALL WAS ABOUT 6 MONTHS AGO AT HOME. GAIT IS TIME AND DISTANCE LIMITED DUE TO PAIN AND CAUSES LIMP ON R LE. NO USE OF AD. HAS HANDICAP SIGN FROM ORTHO DR. BRONSON THAT DID TKR'S. 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 Accidents: FALL IN 2022 AT WORK. Unexplained weight loss: NO Imaging: LUMBAR X-RAY AND MRI RESULTS PER [facility] 07/14/24: multilevel disc height loss most severe at L5-S1. There is a anterolisthesis of L4 on L5 and L3 on L4. There is a compression deformity at L4. Reviewed MRI from June 27, 2024 L3-4 moderate canal and moderate bilateral neuroforaminal stenosis, L4-5 severe central and severe left neuroforaminal canal stenosis, L5- S1 moderate canal and moderate bilateral neuroforaminal stenosis. PMH/Recent major surgery: IDDM, FIBROMYALGIA, HTN, THELMA'S DZ, COLITIS. PSORIAT IC ARTHRITIS, RA. CHRONIC NECK PAIN/CERVICAL RADICULOPATHY. Pain Neck: Pain Intensity (Out of 10): 6 Pain Intensity Range: 2 and 6 LBP: Pain Intensity (Out of 10): 0 Pain Intensity Range: 2 and 6 Comment: while sitting Objective Objective: Sitting/Standing Posture: POOR. DECREASED LORDOSIS. FH. ROUNDED SHLD'S. ANTERIOR PELVIC TILT. NO RELEVANT LATERAL LUMBAR SHIFT. R CERVICAL TORTICOLLIS - MILD. FRANCESCA HIP ER. Active Correction of posture: ONLY ABLE TO PARTIALLY CORRECT. ATTEMPS INCREASE PAIN. UNABLE TO MAINTAIN. Other Observations: INDEP ANTALGIC GAIT INTO PT WITH DECREASED CADANCE AND DECREASED WT BEARING TIME ON R LE. FRANCESCA LE ER. WALKING ON FRANCESCA BENT KNEES. DECREASED FRANCESCA STRIDE LENGTH. UNABLE TO TRANSFER INDEP'LY FROM SIT TO STAND WITHOUT BUE ASSIST. FAIR STANDING TOLERANCE. Sensory deficit: ALTERED LIGHT TOUCH SENSATION R LATERAL THIGH, LATERAL LEG AND R FOOT COMPARED TO LEFT. ROM deficit: TIGHT FRANCESCA LE HIP FLEXORS, HS AND CALVES. L KNEE: 28-0-75 DEG FLEX (SUPINE), R KNEE: 24-0-95 DEG FLEX (SUPINE). Motor deficit: R HIP 4-/5, KNEE 4/5, ANKLE 4/5. L HIP 4/5, KNEE 4/5, ANKLE 4/5 (TESTED MID-RANGE). Dural Signs: NEGATIVE FRANCESCA LE'S. Lumbar mvmt loss: flex - NIL ext - ZOHREH R SG - ZOHREH L SG - MOD INCREASED LBP WITH LUMBAR ROM TESTING ALL PLANES AND INCREASED R HIP PAIN WITH EXT AND R SG TESTING. NW A RESULT. Core strength: POOR POSTURAL STRENGTH - POOR. Palpation: NO ACUTE LUMBAR OR SACRAL TENDERNESS. INCREASED MUSCLE TONE FRANCESCA LUMBAR AND THORACIC PARASPINALS. Balance/Special Test Scores Oswestry Low Back Score: 15 Oswestry Neck Score: 18 Goals Goal 1:: DECREASE C/O LOW BACK PAIN (TAKING NECK PAIN INTO CONSIDERATION) BY AT LEAST 50% TO EASE ADL AND WORK FUNCTION Goal Time Frame: 4-6 Weeks Goal 2:: IMPROVE LIFTING, WALKING, SITTING, STANDING, SLEEP, SOCIAL LIFE, TRAVEL, WORK AND HOMEMAKING FUNCTION WITH AT LEAST 5 POINT IMPROVEMENT IN BACK OSWESTRY SCORE. Goal Time Frame: 4-6 Weeks Goal 3:: INSTRUCT IN PROPHYLAXIS Goal Time Frame: 4-6 Weeks Rehabilitation Potential Physical Therapy Diagnosis: CORE AND FRANCESCA LE STIFFNESS AND WEAKNESS Rehabilitation Potential: Good Anticipated Interventions Patient/Client Instruction: Educate patient on: Condition, Plan of Care and Risk Factors For the Purpose of:: To improve self management Therapeutic Exercise to Include: Strength training, Body mechanics, Postural training, Flexibilty training, Neuromotor development, In an aquatic setting and Dynamic Lumbar Stabilization For the Purpose of:: To decrease pain, To increase ROM, To improve muscle performance and motor function, To improve ability to perform ADL's, To increase tolerance to activity/condition/position, To improve ability of physical actions for home/community/work/leisure, To increase flexibility/ROM and To improve self management Text: Thank you for the opportunity to evaluate your patient. For Medicare and Medicare HMO plans, please review the plan of care and approve it. It will need to be FAXED BACK to us at [phone] for Medicare purposes. For Medicare only, by signing this I certify the plan of care. Please let me know if there are questions or concerns regarding this plan of care. Physician Signature:__ Date:
--- NOTE | 2024-09-21 11:51 | HP.PTREVAL_ITS ---
Re-Evaluation Intro: RAYSA De Leno, It has been my pleasure to treat SHANE RODRIGUEZ over the last 10 visits for LUMBAR AND CERVICAL RADICULOPATHY. Please see the progress note below for an update on the physical therapy plan of care! Subjective Subjective: MY MOVEMENT IS BETTER. THERE IS NOT MUCH PAIN. 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 I'M NOT SO STIFF MUCH I WAS BEFORE GETTING UP OFF THE CHAIR. I DON'T STRUGGLE MUCH TO GET OFF THE CHAIR OFTEN I DID BEFORE I STARTED THE WATER EX. PATIENT IS REPORTING OVER ALL IMPROVEMENT SINCE STARTING PT BUT SOME OF THE BENEFIT IS TEMPORARY. SHE REPORTS DECREASED PAIN IN THE WATER AND AFTER WATER SESSIONS BUT SOME OF THE RELIEF WEARS OFF. I WOULD LIKE TO CONTINUE TO SEE IF IT HELPS. SHE ALSO REPORTS SHE IS HOPING THAT NOT GOING IN TO WORK WHEN SHE RETIRES WILL HELP TOO. Objective Objective/Function: PATIENT WAS SEEN TODAY FOR RE-ASSESSMENT OF PROGRESS TOWARD THE SET PT GOALS AND THE NEED FOR FURTHER PHYSICAL THERAPY VS READINESS FOR DISCHARGE. OVER-ALL PATIENT IS MAKING SLOWLY PROGRESS IN PT IN TERMS OF LE STRENGTH, CORE STRENGTH/STABILITY AND INCREASED PAINFREE TRUNK ROM. SHE IS A GOOD CANDIDATE TO CONTINUE AQUATIC THERAPY BASED ON PROGRESS MADE AND ROOM FOR FURTHER IMPROVEMENT. PATIENT WOULD ALSO BENEFIT FROMO FURTHER NECK ASSESSMENT. UPON EXAM TODAY: THIS PATIENT AMBULATES INDEP'LY INTO PT TODAY WITH LESS ANTALGIC GAIT PATTERN COMPARED TO PT EVAL BUT STILL WITH DECREASED CADANCE AND DECREASED WT BEARING TIME ON R LE. FRANCESCA LE ER. WALKING ON FRANCESCA BENT KNEES. DE CREASED FRANCESCA STRIDE LENGTH. UNABLE TO TRANSFER INDEP'LY FROM SIT TO STAND WITHOUT BUE ASSIST. SHE ALSO HAS BETTER STANDING TOLERANCE TODAY. Sensory deficit: TODAY LIGHT TOUCH SENSATION IS GROSSLY INTACT AND SYMMETRICAL FRANCESCA LE'S EXCEPT R FOOT C/O NUMBNESS AND TINGLING. ROM deficit: TIGHT FRANCESCA LE HIP FLEXORS, HS AND CALVES. L KNEE: 20-0-87 DEG FLEX (SUPINE), R KNEE: 16-0-75 DEG FLEX (SUPINE). Motor deficit: R HIP 4-/5, KNEE 4/5, ANKLE 5/5. L HIP 4/5, KNEE 5/5, ANKLE 5/5 (TESTED MID-RANGE). Dural Signs: NEGATIVE FRANCESCA LE'S. Lumbar mvmt loss: flex - NIL ext - ZOHREH R SG - ZOHREH L SG - MOD INCREASED LBP WITH LUMBAR ROM TESTING ALL PLANES AND INCREASED R HIP PAIN WITH EXT AND R SG TESTING. NW A RESULT. Core strength: POOR POSTURAL STRENGTH - POOR. Palpation: NO ACUTE LUMBAR OR SACRAL TENDERNESS. INCREASED MUSCLE TONE FRANCESCA LUMBAR AND THORACIC PARASPINALS. Plan Plan Plan: CONT AQUATIC THERAPY PER CURRENT POC 2X'S/WK X 6-8 WKS AND NECK ASSESSMENT WITH PT. PATIENT AGREEABLE. SPINE PAIN RELIEF WITH FOCUS ON LUMBAR SPINE BUT PATIENT ALSO HAS NECK PAIN. (SHE HAS BEEN REFERRED TO PAIN MGMT- CONSIDER LUMBAR CELIA'S AND HAD A RECENT LUMBAR MRI). Neutral Spine only Core Stability Exercises and Francesca LE Hip Flexor, Hamstring and Calf Stretching to help reduce stress to the Lumbar Spine with all Daily Activities. Francesca LE Strengthening. Instruction in Proper Posture Control, Body Mechanics, and Appropriate Activity Modifications. HEP Instruction. Balance/Gait/Functional tests Balance/Special Test Scores Oswestry Low Back Score: 15 Oswestry Neck Score: 18 Goals Goals Goal 1:: DECREASE C/O LOW BACK PAIN (TAKING NECK PAIN INTO CONSIDERATION) BY AT LEAST 50% TO EASE ADL AND WORK FUNCTION Goal Time Frame: 4-6 Weeks Goal Progress: Progressing Goal 2:: IMPROVE LIFTING, WALKING, SITTING, STANDING, SLEEP, SOCIAL LIFE, TRAVEL, WORK AND HOMEMAKING FUNCTION WITH AT LEAST 5 POINT IMPROVEMENT IN BACK OSWESTRY SCORE. Goal Time Frame: 4-6 Weeks Goal Progress: Progressing Goal 3:: INSTRUCT IN PROPHYLAXIS Goal Time Frame: 4-6 Weeks Goal Progress: Progressing Anticipated Interventions Anticipated Interventions Patient/Client Instruction: Educate patient on: Condition, Plan of Care and Risk Factors For the Purpose of:: To improve self management Therapeutic Exercise to Include: Strength training, Body mechanics, Postural training, Flexibilty training, Neuromotor development, In an aquatic setting and Dynamic Lumbar Stabilization For the Purpose of:: To decrease pain, To increase ROM, To improve muscle performance and motor function, To improve ability to perform ADL's, To increase tolerance to activity/condition/position, To improve ability of physical actions for home/community/work/leisure, To increase flexibility/ROM and To improve self management Re-Evaluation Ending Re-evaluation ending: Please do not hesitate to contact me at [phone] by phone or if you have questions or concerns regarding this new plan of care! Sincerely, Latha Castro, PT, Cert MDT
--- NOTE | 2024-10-05 14:56 | HP.PTREVAL ---
Re-Evaluation Intro: RAYSA De Leon, It has been my pleasure to treat SHANE RODRIGUEZ over the last 14 visits for LUMBAR AND CERVICAL RADICULOPATHY. Please see the progress note below for an update on the physical therapy plan of care! Subjective Subjective: I DON'T HAVE MUCH BACK PAIN I DID WHEN I FIRST STARTED. MY NECK ISN'T BAD EITHER. I'M A LOT BETTER. I LIKE BEING IN THE POOL. IT'S RELAXING. I AM GETTING TO WHERE I KNOW WHAT TO DO AND TODAY IS OFFICIALLY MY FIRST DAY OF HALFWAY. PATIENT REPORTS THAT EVEN THOUGH SHE JUST WORKED 5 DAYS STRAIGHT TODAY SHE FEELS PRETTY GOOD. PATIENT IS BEING SEEN TODAY FOR FURTHER ASSESSMENT OF HER NECK PAIN. SHE REPORTS L>R NECK PAIN THAT IS RANGING 0-3/10 IN THE LAST WEEK OR TWO. SHE DENIES FRANCESCA UE RADIATING PAIN, NUMBNESS OR TINGLING BUT SHE DOES GET INTERMITTENT L NECK AREA NUMBNESS. SHE REPORTS RECENT HISTORY OF DIZZINESS WITH CHANGE OF POSITION FOR A COUPLE OF MONTHS THAT HAS RESOLVED IN THE LAST WEEK OR SO. PATIENT REPORTS INTERMITTENT L FOREHEAD SHARP PAINS THAT LAST FOR A FEW SECONDS A COUPLE TIMES A WEEK FOR ABOUT A YEAR. NECK PAIN IS CHRONIC AND TYPICALY WOULD INCREASE WITH WORK BUT SHE IS RETIRED NOW. Objective Objective/Function: ASSESSMENT OF CERVICAL SPINE: POSTURE: VERY FH AND ROUNDED SHLD'S. NO TORTICOLLIS. ROM deficit: L SHLD ELEVATION TO 135 DEG, R 140 DEG. R SHLD ER 55 DEG, L 45 DEG. Motor deficit: FRANCESCA SHLD'S 4-/5. 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 Cervical Mvmt Loss: Flex: MIN Pro: NIL Ext: MOD Ret: MOD TO ZOHREH RSB: MOD LSB: MOD R Rot: MIN L Rot: MIN. PATIENT C/O L NECK PAIN WITH CERVICAL EXT, FRANCESCA SB AND RETRACTION ROM TESTING BUT NW A RESULT. Postural strength: FAIR Palpation: TENERNESS AND TIGHTNESS WITH PALPATION OF L SCM AND SCALENES. INCREASED MUSCLE TONE FRANCESCA UT'S. Plan Plan Plan: NEW PLEASE PROGRESS POSTURAL STRENGTHENING AND SCAPULAR STRENGTH/STABILITY TOLERATED. ADD GENTLE FRANCESCA *SHLD FLEXION AND PEC/UT/LEVATOR/SCALENE STRETCHING TO HELP REDUCE STRESS ON CERVICAL SPINE WITH DAILY ACTIVITIES TOLERATED. 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 SPINE PAIN RELIEF WITH FOCUS ON LUMBAR SPINE BUT PATIENT ALSO HAS NECK PAIN. (SHE HAS BEEN REFERRED TO PAIN MGMT- CONSIDER LUMBAR CELIA'S AND HAD A RECENT LUMBAR MRI). Neutral Spine only Core Stability Exercises and Francesca LE Hip Flexor, Hamstring and Calf Stretching to help reduce stress to the Lumbar Spine with all Daily Activities. Francesca LE Strengthening. Instruction in Proper Posture Control, Body Mechanics, and Appropriate Activity Modifications. HEP Instruction. Balance/Gait/Functional tests Balance/Special Test Scores Oswestry Low Back Score: 15 Oswestry Neck Score: 18 Goals Goals Goal 1:: DECREASE C/O LOW BACK PAIN (TAKING NECK PAIN INTO CONSIDERATION) BY AT LEAST 50% TO EASE ADL AND WORK FUNCTION Goal Time Frame: 4-6 Weeks Goal Progress: Progressing Goal 2:: IMPROVE LIFTING, WALKING, SITTING, STANDING, SLEEP, SOCIAL LIFE, TRAVEL, WORK AND HOMEMAKING FUNCTION WITH AT LEAST 5 POINT IMPROVEMENT IN BACK OSWESTRY SCORE. Goal Time Frame: 4-6 Weeks Goal Progress: Progressing Goal 3:: INSTRUCT IN PROPHYLAXIS Goal Time Frame: 4-6 Weeks Goal Progress: Progressing Goal 4:: NEW GOAL - INCREASE FRANCESCA SHLD ROM BY AT LEAST 10 DEG ELEVATION TO EASE ADL'S AND DECREASE STRESS ON CERVIAL SPINE. Goal Time Frame: 2-4 Weeks Anticipated Interventions Anticipated Interventions Patient/Client Instruction: Educate patient on: Condition, Plan of Care and Risk Factors For the Purpose of:: To improve self management Therapeutic Exercise to Include: Strength training, Body mechanics, Postural training, Flexibilty training, Neuromotor development, In an aquatic setting and Dynamic Lumbar Stabilization For the Purpose of:: To decrease pain, To increase ROM, To improve muscle performance and motor function, To improve ability to perform ADL's, To increase tolerance to activity/condition/position, To improve ability of physical actions for home/community/work/leisure, To increase flexibility/ROM and To improve self management Re-Evaluation Ending Re-evaluation ending: Please do not hesitate to contact me at [phone] by phone or if you have questions or concerns regarding this new plan of care! Sincerely, Latha Castro, PT, Cert MDT
--- NOTE | 2024-10-20 14:23 | HP.PTDCSUM ---
Discharge Summary D/C summary: It has been my pleasure to treat SHANE RODRIGUEZ referred by RAYSA De Leon, with the diagnosis of LUMBAR AND CERVICAL RADICULOPATHY for a total of 18 visit(s). Discharge Date: 10/20/24 Please see the following information for a summary of their discharge status. Subjective Subjective: PATIENT REPORTS SHE ISN'T HAVING MUCH NECK OR BACK PAIN NOW. IT'S NOT PERFECT BUT LONG I DO MY STRETCHES IT'S NOT PAINFUL AND I CAN DO THINGS LIKE PULL WEEDS, SWEEP AND VACUUM AT HOME. PATIENT REPORTS SHE HASN'T HAD ANY STABBING PAINS FOR A COUPLE OF WEEKS NOW EXCEPT MAYBE ONE TIME. PATIENT STATES SHE IS HAVING A MASSAGE THURSDAY AND IS PLANNING TO GET A MEMBERSHIP TO CONTINUE [employer] OTR EX AT THAT TIME AND FEELS READY TO DO SO. Pain Neck: Pain Intensity (Out of 10): 6 LBP: Pain Intensity (Out of 10): 2 Overall Improvement % Improvement: 90 Objective Objective/Function: PATIENT WAS SEEN TODAY FOR RE-ASSESSMENT OF PROGRESS TOWARD THE SET PT GOALS AND THE NEED FOR FURTHER PHYSICAL THERAPY VS READINESS FOR DISCHARGE. ALL PT GOALS HAVE BEEN MET AND PATIENT IS APPROPRIATE FOR AND AGREEABLE TO DISCHARGE AT THIS TIME. UPON EXAM TODAY: ROM deficit: L SHLD ELEVATION TO 147 DEG, R 150 DEG. Motor deficit: FRANCESCA SHLD'S 4-/5. 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 Cervical Mvmt Loss: Flex: NIL Pro: NIL Ext: MOD Ret: MOD TO ZOHREH RSB: MOD LSB: MOD R Rot: MIN L Rot: MIN. PATIENT DENIES PAIN WITH NECK ROM TESTING ALL PLANES TODAY. Sensory deficit: TODAY LIGHT TOUCH SENSATION IS GROSSLY INTACT AND SYMMETRICAL INCLUDING R FOOT. ROM deficit: TIGHT FRANCESCA LE HIP FLEXORS, HS AND CALVES. L KNEE: 14-0-87 DEG FLEX (SUPINE), R KNEE: 10-0-76 DEG FLEX (SUPINE). Motor deficit: FRANCESCA LE'S GROSSLY 5/5 WITH MMT'ING Dural Signs: NEGATIVE FRANCSECA LE'S. Lumbar mvmt loss: flex - NIL ext - MOD TO ZOHREH R SG - MOD L SG - MOD PATIENT DENIES BACK PAIN WITH LUMBAR ROM TESTING ALL PLANES. Core strength: FAIR POSTURAL STRENGTH - FAIR Goals Goal 1:: DECREASE C/O LOW BACK PAIN (TAKING NECK PAIN INTO CONSIDERATION) BY AT LEAST 50% TO EASE ADL AND WORK FUNCTION Goal Progress: Goal Met Goal 2:: IMPROVE LIFTING, WALKING, SITTING, STANDING, SLEEP, SOCIAL LIFE, TRAVEL, WORK AND HOMEMAKING FUNCTION WITH AT LEAST 5 POINT IMPROVEMENT IN BACK OSWESTRY SCORE. Goal Progress: Goal Met Goal 3:: INSTRUCT IN PROPHYLAXIS Goal Progress: Goal Met Goal 4:: NEW GOAL - INCREASE FRANCESCA SHLD ROM BY AT LEAST 10 DEG ELEVATION TO EASE ADL'S AND DECREASE STRESS ON CERVIAL SPINE. Goal Progress: Goal Met Plan Plan: D/C TO INDEP HOME AND WATER EX. D/C Information d/c sentence: If there are questions or concerns regarding this patient's physical therapy, please feel free to call me at [phone]. Thank you for the referral of this patient. Sincerely, Latha Castro, PT, Cert MDT Balance/Gait/Functional tests Balance/Special Test Scores Oswestry Low Back Score: 0 Oswestry Neck Score: 3 Improvement % Improvement: 90
== END 2024-10-20 19:00 | disposition home or self-care (01) ==
LOC: PT 12:00
PROVIDERS: PCP Internal Medicine; Referring Provider Student in an Organized Health Care Education/Training Program; Visit Provider Student in an Organized Health Care Education/Training Program
DX: M54.16 Radiculopathy, lumbar region (principal); M54.12 Radiculopathy, cervical region
CPT/HCPCS: 97113; 97162; 97530

== ENCOUNTER 2024-11-03 08:40 | Day surgery (SDC) | payer OTHER, MEDICARE, SELFPAY ==
[2024-11-03] VITALS (8 sets, daily range): BP systolic 110–149; BP diastolic 62–75; PULSE 83–90; RESP 16–18; TEMP 36.6–37; O2SAT 94–100; BMI 32.1
--- NOTE | 2024-11-03 08:57 | PCM.HP.STD ---
HPI - General General Date of Admission: 11/03/24 Date of Service: 11/03/24 Chief Complaint: Cirrhosis and dysphagia HPI Narrative SHANE RODRIGUEZ, is a 64 F who presents for the evaluation of dysphagia [facility] established in 2020 for Crohns disease diagnosed about 15 years prior. Pt has been on Humira and Remicade. Currently on Stelara. EGD/colonoscopy 01.24.21 EGD Schatzki ring, Savary 51F; LA Grade A esophagitis; medium hiatal hernia; gastritis. Metaplasia, H.Pylori neg Colonoscopy CD score 8 with findings in ileum and left colon; TA polyp. No IBD pathology Liver biopsy 01.29.24; consistent with cirrhosis Last OV 02.16.24 Discussed with pt results of liver biopsy and cirrhosis. Crohns well controlled at this time. Biochemical work up 02.16.24; HgB 13.7, ESR 8, INR 1.0, Sodium 136, LFTS wnl, bilirubin .70, CRP <2.90, AFP <1.8, copper wnl, MELD; 6 OV 4 Pt continues with diarrhea and is unsure if the Stelara has really been helping. She has diarrhea a few times per day. She denies abdominal or leg swelling, confusion, and pruritic skin. [facility] Medical History Wears partial dentures Arthritis Colitis Heartburn Migraines Wears glasses Wears dentures Anxiety Diabetes Rheumatoid arthritis Hx of psoriatic arthritis Low iron DVT (deep venous thrombosis) High cholesterol Easy bruising Restless legs Back pain Syncope Difficulty swallowing Dietary restriction History of hiatal hernia History of ulceration History of Crohn's disease Gastric reflux Former smoker Asthma Shortness of breath on exertion Leg cramps History of pain when walking History of edema History of stress test Hypertension Diverticulitis Crohn disease Bronchitis Back pain Bloody stools Difficulty balancing Knee pain Diarrhea Chest pain Stomach ulcer Shoulder pain History of arthritis History of hypertension Home Medications ?Medication ?Instructions ?Recorded ?Last Taken ?Type amitriptyline 75 mg tablet 100 mg PO QHS MOOD 06/04/17 02/25/24 History folic acid 1 mg tablet 2 mg PO DAILY@0800 SUPPLEMENT 06/04/17 02/25/24 History omeprazole 40 mg capsule,delayed 40 mg PO DAILY GERD 07/28/19 02/25/24 History release hydrochlorothiazide 12.5 mg capsule 12.5 mg PO DAILY 12/07/19 02/25/24 History montelukast 10 mg tablet 10 mg PO QPM #90 tabs 09/18/20 02/25/24 Rx atorvastatin 10 mg tablet 10 mg PO DAILY 02/01/23 02/25/24 History lisinopril 5 mg tablet 5 mg PO DAILY 02/01/23 02/25/24 History potassium chloride 8 mEq 8 meq PO DAILY 02/01/23 02/25/24 History capsule,extended release albuterol sulfate 90 mcg/actuation 2 puff inhalation Q4H PRN 04/22/24 Unknown Rx aerosol inhaler shortness of breath or wheezing #8.[address] #1 ea 04/22/24 Unknown Rx semaglutide 0.25 mg or 0.5 mg (2 0.25 mg subcut QWEEK 05/10/24 Unknown History mg/3 mL) subcutaneous pen injector ([employer]) ustekinumab 90 mg/mL subcutaneous See Rx Instructions .Route 05/13/24 Unknown Rx syringe ([employer]) .COMPLEX #1 mL empagliflozin 25 mg tablet 25 mg PO QAM 10/28/24 Unknown History (Jardiance) fluticasone furoate 200 1 inh inhalation QDAY PRN wheezing 10/28/24 Unknown History mcg-vilanterol 25 mcg/dose inhalation powder ([employer]) glipizide 10 mg tablet, extended 10 mg PO QDAY 10/28/24 Unknown History release 24 hr Allergy/AdvReac Type Severity Reaction Status Date / Time doxycycline Allergy Hives Verified 10/28/24 14:55 dyclonine Allergy Rash Verified 10/28/24 14:55 etodolac Allergy Rash Verified 10/28/24 14:55 Sulfa (Sulfonamide Allergy Rash Verified 10/28/24 14:55 Antibiotics) adhesive tape AdvReac Itching Verified 10/28/24 14:55 magnesium AdvReac Angioedema Verified 10/28/24 14:55 Family History Father Heart disease Brother Heart disease COPD (chronic obstructive pulmonary disease) Diabetes Mother Cancer Breast Diabetes Sister Diabetes Surgical History Hx of dilation and curettage History of esophagogastroduodenoscopy (EGD) Hx of colonoscopy Hx of arthroscopy of right knee Hx of arthroscopy of left knee Hx of hysterectomy History of carpal tunnel surgery of right wrist History of carpal tunnel surgery of left wrist Hx of tonsillectomy History of cholecystectomy History of knee replacement Social History household members: spouse housing: house Smoking Status: Former smoker quit date: 04/06/03 Tobacco: How many years used: 32 ROS Constitutional Constitutional: Denies fatigue, fever(s), poor appetite, weight gain or weight loss Gastrointestinal Gastrointestinal: Denies belching, bloating, change in bowel habits, change in stool character, chewing difficulty, coffee ground emesis, constipation, cramping, diarrhea, dyspepsia, dysphagia, early satiety, excessive flatus, fecal incontinence, heartburn, hematemesis, hematochezia, hemorrhoids, loose stools, melena, nausea, odynophagia, rectal bleeding, tenesmus, vomiting or weight changes Physical Exam Const alert, oriented x3, no apparent distress and healthy appearing General Appearance: cooperative GI normal to inspection, nondistended, normoactive bowel sounds, soft to palpation, non-tender and non-distended Percussion: normal to percussion Rectal Exam: deferred Assessment & Plan Assessment/Plan (1) Cirrhosis: (2) GERD (gastroesophageal reflux disease): QUALIFIERS: Esophagitis presence: esophagitis presence not specified Qualified Code(s): K21.9 - Gastro-esophageal reflux disease without esophagitis (3) Difficulty swallowing: PLAN: Assessment and Plan Assessment and Plan (1) Liver lesion: Status: Acute Plan: This is a 63 yo female pt here today for f/u regarding her Crohns disease and Cirrhosis. Pt continues to have daily diarrhea and is unsure if Stelara has been helping. Will order Stelara level, ESR, CRP and calprotectin to monitor her disease. We may need to consider different treatment pending results. Pt was found to have non alcoholic cirrhosis after liver biopsy in November [address]. Per Dr. More, her liver looked abnormal on prior CTs therefore the biopsy was ordered. Her liver elastography was normal in stiffness. Biochemical work up for chronic liver disease was negative for autoimmune conditions or viral hepatitis. MELD was 6. Pt is currently on Ozempic for weight loss and diabetes. Will continues to monitor blood work. CBC, CMP, INR and ammonia ordered today. Liver elastography from 2023 showing a hypoechoic region in the liver with recommendation for triple phase CT. This has not yet been completed. I placed an order for this today. Pt endorses a hx of difficulty swallowing for some time now. Apr 2024 she presented to the ED with feelings of food stuck in her throat. EGD in 2021 showed Schatzki ring (dilated), gastritis, and esophagitis. She will undergo repeat EGD as well as for surveillance of esophageal varices. (2) Cirrhosis: Status: Acute (3) Crohn's colitis: Status: Chronic (4) Difficulty swallowing: Status: Acute Comment: FOOD GETS STUCK Orders: Orders Abdomen W/WO IV Contrast Today K76.9 - Liver disease, unspecified CBC W/Diff, Automated Today K50.10 - Crohn's disease of large intestine without complications, K74.60 - Unspecified cirrhosis of liver Comprehensive Metabolic Profil Today K50.10 - Crohn's disease of large intestine without complications, K74.60 - Unspecified cirrhosis of liver Prothrombin Time w/INR Today K50.10 - Crohn's disease of large intestine without complications, K74.60 - Unspecified cirrhosis of liver Erythrocyte Sed Rate Today K50.10 - Crohn's disease of large intestine without complications, K74.60 - Unspecified cirrhosis of liver CRP Today K50.10 - Crohn's disease of large intestine without complications, K74.60 - Unspecified cirrhosis of liver Calprotectin, Stool Today K50.10 - Crohn's disease of large intestine without complications, K74.60 - Unspecified cirrhosis of liver Ammonia Today K74.60 - Unspecified cirrhosis of liver
[2024-11-03] MEDS: Lactated Ringers 1,000 ML 15 ML IV (09:14)
--- NOTE | 2024-11-03 09:38 | PCM.PRE.AN2 ---
ASA Classification* ASA Classification ASA Classification: 2 Assessment & Plan Anesthesia* Anesthesia Assessment Anesthesia Assessment: Discussed sedation and/or anesthesia options, risks, benefits, and alternatives with patient/parents/legal guardian/POA. Questions invited. The patient/parents/legal guardian/POA seems to understand and agrees to proceed with anesthesia plan. Reviewed the physical assessment, medical history, allergy history and patient home medications list prior to surgery/procedure/anesthetic and documented any changes. Performed airway and anesthesia risk assessments. Anesthesia Type Anesthesia Type: MAC History Source History Obtained from:: Patient and Chart Anesthesia Focused Assessment* Temperature: 97.8 F Pulse Rate: 90 Blood Pressure: 149/75 Respiratory Rate: 16 Pulse Ox: 100 Oxygen Delivery Method: Room Air Airway Assessment Mouth opens: >3 cm Mallampati Score: II Teeth Condition: Dentures and Partial Neck Range of motion (ROM): Full ROM Labs Anesthesia Preop lab: CBC WBC 8.6 K/mm3 (4.4-11.0) 02/16/24 16:34 02/16/24 RBC 5.48 M/mm3 (4.2-5.4) H 02/16/24 16:34 02/16/24 Hgb 13.7 g/dL (12.0-15.0) 02/16/24 16:34 02/16/24 Hct 43.8 % (37-47) 02/16/24 16:34 02/16/24 Plt Count 233 K/mm3 (150-450) 02/16/24 16:34 02/16/24 CHEMISTRY Potassium 4.4 mmol/L (3.3-5.1) 07/21/24 08:13 07/21/24 Sodium 139 mmol/L (133-145) 07/21/24 08:13 07/21/24 Magnesium 1.8 mg/dL (1.6-2.6) 07/30/19 06:20 07/30/19 BUN 14 mg/dL (4-19) 07/21/24 08:13 07/21/24 Creatinine 0.71 mg/dL (0.70-1.20) 07/21/24 08:13 07/21/24 Glucose 198 mg/dL (70-99) H 07/21/24 08:13 07/21/24 POC Glucose 126 mg/dL (74-106) H 02/26/24 11:10 02/26/24 COAG PT 13.3 SECONDS (11.7-14.9) 02/16/24 16:34 02/16/24 Pre-Assessment Diagnosis/Proposed Procedure Planned Operative Procedure(s): EGD Anesthesia History 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 When Was Last Pacemaker Check QUESTION #4 FULL TEXT: You/Your Family Experience fever (hyperthermia) with Anesthesia Last Oral Intake Last Oral intake: Last Oral Intake NPO since 20:00 11/03/24 09:09 Meds taken in AM with sips of Yes 11/03/24 09:09 water? Meds patient instructed to see chart, sips with meds 11/03/24 09:09 take am of surgery PONV PONV - skein winding operator: PONV - skein winding operator Female Yes 10/28/24 15:08 HX of Motion Sickness No 10/28/24 15:08 HX of N/V After Surgery No 10/28/24 15:08 Non-Smoker Yes 10/28/24 15:08 Duration of Surgery greater No 10/28/24 15:08 than 60 minutes Number of Risk Factors 2 10/28/24 15:08 PONV Score Moderate Risk 10/28/24 15:08 Height & Weight Height & Weight: Anesthesia: Height & Weight Height 5 ft 4 in 11/03/24 09:09 Weight: 84.8 kg 11/03/24 09:09 Body Mass Index (BMI) 32.1 11/03/24 09:09 Respiratory Assessment Respiratory Assessment - skein winding operator: Respiratory Tract Infection Hx - skein winding operator Hx Respiratory Tract Infection No 10/28/24 15:08 STOP Sleep Apnea STOP Sleep Apnea - skein winding operator: STOP Sleep Apnea - skein winding operator Hx Hypertension Yes: ON MEDS 10/28/24 15:08 Hx Sleep Apnea No 10/28/24 15:08 CPAP No 02/26/24 13:34 BIPAP Do you snore loudly (louder No 10/28/24 15:08 than talking or can be heard Do you often feel tired/ No 10/28/24 15:08 fatigued/ sleepy during daytime? Has anyone observed you stop No 10/28/24 15:08 breathing during sleep? STOP Results Negative 10/28/24 15:08 QUESTION #5 FULL TEXT : Do you snore loudly (louder than talking or can be heard through closed doors)? 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 Specify any problems Hx of Preganancy in last 3 No 10/28/24 15:08 Months Nurse Filling Out Transfusion JZOLLCHRISTAL 10/28/24 15:08 & Questions: Date: 10/28/24 10/28/24 15:08 Time: 15:10 10/28/24 15:08 Patient unable to answer at this time (ie. confused, unrespo /Reproduction History /Reproductive History - skein winding operator: /Reproductive Hx- skein winding operator Hx Now No 10/28/24 15:08 Gestational Age (in weeks): EDC: Hx Hx Para Hx Section SAB No 10/28/24 15:08 Active Medications Active Medications: Current Medications Generic Name Dose Route Start Last Admin Trade Name Freq PRN Reason Stop Dose Admin Lactated Ringer's 1,000 mls @ 15 mls/hr 11/03/24 09:00 11/03/24 09:14 IV 15 mls/hr .Q48H CRISPIN Administration PFSH Medical History Wears partial dentures Arthritis Colitis Heartburn Migraines Wears glasses Wears dentures Anxiety Diabetes Rheumatoid arthritis Hx of psoriatic arthritis Low iron DVT (deep venous thrombosis) High cholesterol Easy bruising Restless legs Back pain Syncope Difficulty swallowing Dietary restriction History of hiatal hernia History of ulceration History of Crohn's disease Gastric reflux Former smoker Asthma Shortness of breath on exertion Leg cramps History of pain when walking History of edema History of stress test Hypertension Diverticulitis Crohn disease Bronchitis Back pain Bloody stools Difficulty balancing Knee pain Diarrhea Chest pain Stomach ulcer Shoulder pain History of arthritis History of hypertension Home Medications ?Medication ?Instructions ?Recorded ?Last Taken ?Type amitriptyline 75 mg tablet 100 mg PO QHS MOOD 06/04/17 11/02/24 History folic acid 1 mg tablet 2 mg PO DAILY@0800 SUPPLEMENT 06/04/17 11/02/24 History omeprazole 40 mg capsule,delayed 40 mg PO DAILY GERD 07/28/19 11/02/24 History release hydrochlorothiazide 12.5 mg capsule 12.5 mg PO DAILY 12/07/19 11/02/24 History montelukast 10 mg tablet 10 mg PO QPM #90 tabs 09/18/20 11/02/24 Rx atorvastatin 10 mg tablet 10 mg PO DAILY 02/01/23 11/02/24 History lisinopril 5 mg tablet 5 mg PO DAILY 02/01/23 11/02/24 History potassium chloride 8 mEq 8 meq PO DAILY 02/01/23 11/02/24 History capsule,extended release albuterol sulfate 90 mcg/actuation 2 puff inhalation Q4H PRN 04/22/24 11/02/24 Rx aerosol inhaler shortness of breath or wheezing #8.[address] #1 ea 04/22/24 Unknown Rx semaglutide 0.25 mg or 0.5 mg (2 0.25 mg subcut QWEEK 05/10/24 10/22/24 History mg/3 mL) subcutaneous pen injector (Ozempic) ustekinumab 90 mg/mL subcutaneous See Rx Instructions .Route 05/13/24 Unknown Rx syringe (Stelara) .COMPLEX #1 mL empagliflozin 25 mg tablet 25 mg PO QAM 10/28/24 11/02/24 History (Jardiance) fluticasone furoate 200 1 inh inhalation QDAY PRN wheezing 10/28/24 Unknown History mcg-vilanterol 25 mcg/dose inhalation powder (Breo Ellipta) glipizide 10 mg tablet, extended 10 mg PO QDAY 10/28/24 10/31/24 History release 24 hr Allergy/AdvReac Type Severity Reaction Status Date / Time doxycycline Allergy Hives Verified 11/03/24 09:04 dyclonine Allergy Rash Verified 11/03/24 09:04 etodolac Allergy Rash Verified 11/03/24 09:04 Sulfa (Sulfonamide Allergy Rash Verified 11/03/24 09:04 Antibiotics) adhesive tape AdvReac Itching Verified 11/03/24 09:04 magnesium AdvReac Angioedema Verified 11/03/24 09:04 Family History Father Heart disease Brother Heart disease COPD (chronic obstructive pulmonary disease) Diabetes Mother Cancer Breast Diabetes Sister Diabetes Surgical History Hx of dilation and curettage History of esophagogastroduodenoscopy (EGD) Hx of colonoscopy Hx of arthroscopy of right knee Hx of arthroscopy of left knee Hx of hysterectomy History of carpal tunnel surgery of right wrist History of carpal tunnel surgery of left wrist Hx of tonsillectomy History of cholecystectomy History of knee replacement Social History household members: spouse housing: house Smoking Status: Former smoker quit date: 04/06/03 Tobacco: How many years used: 32 Review of Systems (Anesthesia) ROS Narrative System reviewed and no additional complaints, except as documented.
--- NOTE | 2024-11-03 09:45 | EGD_PTH ---
PATIENT: SHANE RODRIGUEZ LOC: [facility] U#:[id number] AGE/SX: 64/F ROOM: RE11/03/[address]: Dr. Jeff More DO : 1960 BED: DIS: 11/03/2024 SPEC #: [id number] RECD: 11/03/24 11:50 STATUS: KAYCEE RESonya #: [id number] JAMI: 11/03/24 09:[address]: Jeff More DEPT: SURGICAL PATHOLOGY RECD BY: Aquiles Vernon ENTERED: 11/03/24 13:05 SP TYPE: EGD BIOPSY GEE DR: Dr. Zach Null MD Tissues: A - Esophagus, NOS Procedures: Special Stain Group I Surgery Specimen Level IV GMS Stain (control) HEADER OPERATION: EGD, biopsy, dilation PRE-OP DIAGNOSIS: Liver lesion, cirrhosis, Crohn's disease, difficulty swallowing TISSUE SUBMITTED: A- Distal esophagus biopsy MICROSCOPIC DIAGNOSIS A. Distal esophagus, biopsy: - Squamous mucosa with reactive changes and mild acute inflammation. - Columnar mucosa negative for goblet cell metaplasia. - PASD stain is negative for fungal organisms. MICROSCOPIC DESCRIPTION Slides are reviewed. All matched controls reacted appropriately. These tests were developed and their performance characteristics determined by [facility]. They may not have been cleared or approved by the U.S. Food and Drug Administration. The FDA has determined that such clearance or approval is not necessary.? The above immunohistochemical/dualISH?markers are reviewed by the Pathologist. GROSS DESCRIPTION A. Received in fixative is one container labeled with the patient's name and designated Distal esophagus biopsy. The specimen consists of two irregular fragments of light fall soft tissue that in aggregate measure 0.1 and 0.5 cm. The specimen is totally submitted in one cassette. UT 11/03/2024 CPT:85088 ,42027
--- NOTE | 2024-11-03 10:36 | OP.EGD_ITS ---
Patient Name: Leslie Reynolds Procedure Date: 11/03/2024 10:12 AM Date of : 1960 Age: 64 Procedure: Upper GI endoscopy Indications: Dysphagia, Suspected esophageal reflux, Failure to respond to medical treatment, Cirrhosis with suspected esophageal varices Providers: Jeff More DO Referring MD: Zach Null Medicines: Monitored Anesthesia Care Patient Profile: This is a 64 year old female. Refer to note in patient chart for documentation of history and physical. Patient has symptoms of acute dyspepsia, acute heartburn and acute throat burning. Complications: No immediate complications. Procedure: Pre-Anesthesia Assessment: - Prior to the procedure, a History and Physical was performed, and patient medications and allergies were reviewed. The patient is competent. The risks and benefits of the procedure and the sedation options and risks were discussed with the patient. All questions were answered and informed consent was obtained. Patient identification and proposed procedure were verified by the physician in the pre-procedure area. Mental Status Examination: alert and oriented. Airway Examination: normal oropharyngeal airway and neck mobility. Respiratory Examination: clear to auscultation. CV Examination: normal. Prophylactic Antibiotics: The patient does not require prophylactic antibiotics. Prior Anticoagulants: The patient has taken no anticoagulant or antiplatelet agents except for NSAID medication. ASA Grade Assessment: II - A patient with mild systemic disease. After reviewing the risks and benefits, the patient was deemed in satisfactory condition to undergo the procedure. The anesthesia plan was to use monitored anesthesia care (MAC). Immediately prior to administration of medications, the patient was re-assessed for adequacy to receive sedatives. The heart rate, respiratory rate, oxygen saturations, blood pressure, adequacy of pulmonary ventilation, and response to care were monitored throughout the procedure. The physical status of the patient was re-assessed after the procedure. After obtaining informed consent, the endoscope was passed under direct vision. Throughout the procedure, the patient's blood pressure, pulse, and oxygen saturations were monitored continuously. The gastroscope was introduced through the mouth, and advanced to the second part of duodenum. The upper GI endoscopy was accomplished without difficulty. The patient tolerated the procedure well. Scope In: 10:23:01 AM Scope Out: 10:26:09 AM Total Procedure Duration Time 0 hours 3 minutes 8 seconds Findings: Abnormal motility was noted in the esophagus. The cricopharyngeus was abnormal. There are extra peristaltic waves in the esophageal body. The distal esophagus/lower esophageal sphincter is spastic, but gives up passage to the endoscope. A guidewire was placed and the scope was withdrawn. Dilation was performed with a Savary dilator with no resistance at 57 Fr. The dilation site was examined and showed moderate improvement in luminal narrowing. Estimated blood loss was minimal. The Z-line was irregular and was found 40 cm from the incisors. Biopsies were taken with a cold forceps for histology. Verification of patient identification for the specimen was done. Estimated blood loss was minimal. Mild portal hypertensive gastropathy was found on the greater curvature of the stomach and on the lesser curvature of the stomach. No gross lesions were noted in the entire examined duodenum. Impression: - Abnormal esophageal motility. Dilated. - Z-line irregular, 40 cm from the incisors. Biopsied. - Portal hypertensive gastropathy. - No gross lesions in the entire examined duodenum. Recommendation: - Discharge patient to home. - Resume previous diet. - Continue present medications. - Await pathology results. Procedure Code(s): --- Professional --- 67726, Esophagogastroduodenoscopy, flexible, transoral; with insertion of guide wire followed by passage of dilator(s) through esophagus over guide wire 05042, 59,51, Esophagogastroduodenoscopy, flexible, transoral; with biopsy, single or multiple CPT copyright 2021 [employer]. All rights reserved. The codes documented in this report are preliminary and upon police liaison review may be revised to meet current compliance requirements. Jeff More DO 11/03/2024 10:35:56 AM This report has been signed electronically. Number of Addenda: 0 Note Initiated On: 11/03/2024 10:12 AM
--- NOTE | 2024-11-03 10:36 | OP.PROVAT_ITS ---
11/03/2024 Zach Null [address] [place] [address] Re : Upper GI endoscopy procedure for Leslie Reynolds Dear Dr. Null This procedure was performed on October. My impressions and recommendations are as follows: Impressions : - Abnormal esophageal motility. Dilated. - Z-line irregular, 40 cm from the incisors. Biopsied. - Portal hypertensive gastropathy. - No gross lesions in the entire examined duodenum. Recommendations : - Discharge patient to home. - Resume previous diet. - Continue present medications. - Await pathology results. My findings are described in the full procedure note, which is enclosed. If I can be of further assistance, please feel free to contact me at . Sincerely, Jeff More, 11/03/2024 10:35:56 AM This report has been signed electronically.
--- NOTE | 2024-11-03 10:41 | PCM.POST.ANE ---
Anesthesia: Postop Eval I Current Vital Signs Temperature: 98.4 F Pulse Rate: 89 Blood Pressure: 145/64 Respiratory Rate: 16 Pulse Ox: 94 Assessment Airway patent: Yes Spontaneous unlabored respirations: Yes nausea: No Vomiting: No Anesthesia Complication: No Fluid Hydration Crystalloid volume administer (ml): 300 Total IV fluid infused: 300 Progress Note Anesthesia document: Postop Eval 1 completed: Yes
--- NOTE | 2024-11-03 12:42 | POSTOPAN2_ITS ---
Anesthesia Postop Eval I Sum Postop Eval Completion status Anesthesia document: Postop Eval 1 completed: Yes Anesthesia Postop Eval I Summary Anesthesia Postop Eval I Summary: Anesthesia Postop Eval I: Assessment Summary Airway patent Yes 11/03/24 10:41 [email or web address] Spontaneous unlabored Yes 11/03/24 10:41 [email or web address] respirations Mental status nausea No 11/03/24 10:41 [email or web address] Vomiting No 11/03/24 10:41 [email or web address] Anesthesia Postop Eval I: Fluid Summary Crystalloid volume administer 300 11/03/24 10:41 [email or web address] (ml) Colloids volume administered ( ml) Blood Product volume administered (ml) Total IV fluid infused 300 11/03/24 10:41 [email or web address] Anesthesia Postop Eval I: Summary Notes Anesthesia Complication No 11/03/24 10:41 [email or web address] Anesthesia Complication Comment: Post-operative progress note Anesthesia: Postop Eval II Evaluation Mental status: Awake and Calm Pain Level: 1 nausea: No Vomiting: No Complications Anesthesia Complication: No
--- NOTE | 2024-11-03 12:42 | PCM.POSTANE2 ---
Anesthesia Postop Eval I Sum Postop Eval Completion status Anesthesia document: Postop Eval 1 completed: Yes Anesthesia Postop Eval I Summary Anesthesia Postop Eval I Summary: Anesthesia Postop Eval I: Assessment Summary Airway patent Yes 11/03/24 10:41 GEAR TOOTH LAPPING 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.[email or web address] Spontaneous unlabored Yes 11/03/24 10:41 GEAR TOOTH LAPPING 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.TNES respirations Mental status nausea No 11/03/24 10:41 GEAR TOOTH LAPPING 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.TNES Vomiting No 11/03/24 10:41 GEAR TOOTH LAPPING 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.TNES Anesthesia Postop Eval I: Fluid Summary Crystalloid volume administer 300 11/03/24 10:41 GEAR TOOTH LAPPING 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.TNES (ml) Colloids volume administered ( ml) Blood Product volume administered (ml) Total IV fluid infused 300 11/03/24 10:41 GEAR TOOTH LAPPING 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.TNES Anesthesia Postop Eval I: Summary Notes Anesthesia Complication No 11/03/24 10:41 GEAR TOOTH LAPPING 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.TNES Anesthesia Complication Comment: Post-operative progress note Anesthesia: Postop Eval II Evaluation Mental status: Awake and Calm Pain Level: 1 nausea: No Vomiting: No Complications Anesthesia Complication: No
== END 2024-11-03 11:28 | disposition home or self-care (01) ==
LOC: EN 08:42 → AC 08:42
PROVIDERS: PCP Internal Medicine; Referring Provider Internal Medicine; Visit Provider Internal Medicine Gastroenterology
PROC: 0DJ08ZZ Inspection of Upper Intestinal Tract, Via Natural or Artificial Opening Endoscopic (ICD-10-PCS; CPT 43235; principal; 2024-11-03 09:40)
DX: K22.4 Dyskinesia of esophagus (principal); K76.6 Portal hypertension; K50.10 Crohn's disease of large intestine without complications; K74.60 Unspecified cirrhosis of liver; E11.9 Type 2 diabetes mellitus without complications; K31.89 Other diseases of stomach and duodenum; K21.9 Gastro-esophageal reflux disease without esophagitis; E78.00 Pure hypercholesterolemia, unspecified; Z79.51 Long term (current) use of inhaled steroids; Z79.84 Long term (current) use of oral hypoglycemic drugs; Z79.85 Long-term (current) use of injectable non-insulin antidiabetic drugs; Z79.899 Other long term (current) drug therapy; Z87.891 Personal history of nicotine dependence
CPT/HCPCS: 43248; 43239; 82962; 88305; C1769

== ENCOUNTER → 2024-11-30 | Outpatient (CLI) | payer MEDICARE, SELFPAY ==
[2024-11-30 16:39] LABS: Ammonia 12.5 umol/L (11-51)
[2024-11-30 16:59] LABS: Hematocrit 41.7 % (37-47); Hemoglobin 13.4 g/dL (12.0-15.0); Immature Granulocytes Count 0.040 X10^3/uL (0.0-0.0); Mean Corp Hgb Conc 32.1 g/dL (32-36); Mean Corpuscular Volume 80.7 fL (81-99); Mean Platelet Vol. 10.3 fl (6.2-12.0); NRBC Flagged by Analyzer 0 % (0-5); Platelet Count 195 K/mm3 (150-450); RBC Distribution Width CV 14.5 % (11.6-14.6); RBC Distribution Width SD 41.9 fl (35.1-43.9); Red Blood Count 5.17 M/mm3 (4.2-5.4); White Blood Count 7.1 K/mm3 (4.4-11.0)
[2024-11-30 17:06] LABS: Prothrombin Time (Protime)PT. 12.8 SECONDS (11.7-14.9)
[2024-11-30 17:21] LABS: AST(SGOT) 32 U/L (<=31); Alanine Aminotransfer ALT/SGPT 31 U/L (<=34); Albumin, Serum 4.4 g/dL (3.4-4.8); Alkaline Phosphatase 92 U/L (35-104); Anion Gap 15 (5-15); BUN 12 mg/dL (4-19); BUN/Creat Ratio 16.3 RATIO (10-20); Calcium,Total 9.8 mg/dL (7.6-11.0); Carbon Dioxide 22.6 mmol/L (21.0-32.0); Chloride 99 mmol/L (98-108); Globulin 3.3 g/dL (2.2-4.2); Glucose 163 mg/dL (70-99); Potassium 3.8 mmol/L (3.3-5.1)
[2024-11-30 17:23] LABS: CRP < 3.00 mg/L (0.0-3.0)
== END | disposition home or self-care (01) ==
PROVIDERS: PCP Internal Medicine; Referring Provider Student in an Organized Health Care Education/Training Program; Visit Provider Student in an Organized Health Care Education/Training Program
DX: K74.60 Unspecified cirrhosis of liver (principal); K50.10 Crohn's disease of large intestine without complications
CPT/HCPCS: 36415; 80053; 82140; 85025; 85610; 85652; 86140

== ENCOUNTER → 2024-12-06 | Outpatient (CLI) | payer MEDICARE, SELFPAY ==
[2024-12-09 15:08] LABS: Calprotectin, Stool 172 ug/g (0-120)
== END | disposition home or self-care (01) ==
LOC: LABSPEC 16:26
PROVIDERS: PCP Internal Medicine; Referring Provider Student in an Organized Health Care Education/Training Program; Visit Provider Student in an Organized Health Care Education/Training Program
DX: K74.60 Unspecified cirrhosis of liver (principal); K50.10 Crohn's disease of large intestine without complications
CPT/HCPCS: 83993

== ENCOUNTER → 2025-02-28 | Outpatient (CLI) | payer MEDICARE, SELFPAY ==
[2025-02-28 12:00] LABS: Hematocrit 38.7 % (37-47); Hemoglobin 12.3 g/dL (12.0-15.0); Immature Granulocytes Count 0.030 X10^3/uL (0.0-0.0); Mean Corp Hgb Conc 31.8 g/dL (32-36); Mean Corpuscular Volume 78.7 fL (81-99); Mean Platelet Vol. 10.0 fl (6.2-12.0); NRBC Flagged by Analyzer 0 % (0-5); Platelet Count 177 K/mm3 (150-450); RBC Distribution Width CV 15.1 % (11.6-14.6); RBC Distribution Width SD 42.9 fl (35.1-43.9); Red Blood Count 4.92 M/mm3 (4.2-5.4); White Blood Count 5.6 K/mm3 (4.4-11.0)
[2025-02-28 12:04] LABS: Prothrombin Time (Protime)PT. 13.4 SECONDS (11.7-14.9)
[2025-02-28 12:26] LABS: AST(SGOT) 48 U/L (<=31); Alanine Aminotransfer ALT/SGPT 45 U/L (<=34); Albumin, Serum 4.3 g/dL (3.4-4.8); Alkaline Phosphatase 88 U/L (35-104); Anion Gap 13 (5-15); BUN 8 mg/dL (4-19); BUN/Creat Ratio 13.2 RATIO (10-20); Calcium,Total 9.5 mg/dL (7.6-11.0); Carbon Dioxide 25.2 mmol/L (21.0-32.0); Chloride 99 mmol/L (98-108); Globulin 3.2 g/dL (2.2-4.2); Glucose 205 mg/dL (70-99); Potassium 3.9 mmol/L (3.3-5.1)
[2025-02-28 13:29] LABS: CRP 3.44 mg/L (0.0-3.0); LDH 182 U/L (84-246)
[2025-03-01 16:09] LABS: Anti-Smooth Muscle ABS 90 Units (0-19); Immunoglobulin A 464 mg/dL (87-352)
== END | disposition home or self-care (01) ==
LOC: LAB 11:11
PROVIDERS: PCP Internal Medicine; Referring Provider Internal Medicine Gastroenterology; Visit Provider Internal Medicine Gastroenterology
DX: K74.60 Unspecified cirrhosis of liver (principal); D64.9 Anemia, unspecified
CPT/HCPCS: 36415; 80053; 82105; 82784; 83516; 83615; 85025; 85610; 85652; 86140; 86255

== ENCOUNTER → 2025-03-09 | Outpatient (CLI) | payer MEDICARE, SELFPAY ==
--- NOTE | 2025-03-09 10:18 | US_ITS ---
PROCEDURE: ABDOMEN LIMITED 03/09/2025 REASON FOR EXAM: ASCITES SURVEY TECHNIQUE: Procedure Code: USABDL Modality: US Procedure: ABDOMEN LIMITED. The 4 quadrants of the abdomen were assessed for possible ascites. COMPARISON: None FINDINGS: The 4 abdominal quadrants were assessed. No significant ascites is seen for safe paracentesis. US/Abdomen Limited IMPRESSION: No ascites is seen. Reading Location: [facility]
== END | disposition home or self-care (01) ==
LOC: US 10:17
PROVIDERS: PCP Internal Medicine; Referring Provider Internal Medicine Gastroenterology; Visit Provider Internal Medicine Gastroenterology
DX: R18.8 Other ascites (principal)
CPT/HCPCS: 76705

== ENCOUNTER → 2025-04-03 | Outpatient (CLI) | payer MEDICARE, SELFPAY ==
--- NOTE | 2025-04-03 14:47 | CT_ITS ---
PROCEDURE: ABDOMEN/PELVIS WITH CONTRAST 04/03/2025 REASON FOR EXAM: CIRRHOSIS Abdominal pain. TECHNIQUE: Procedure Code: [id number] Modality: CT Procedure: ABDOMEN/PELVIS WITH CONTRAST Coronal and Sagittal reconstruction series were provided. CONTRAST: Isovue 300 VOLUME: 90 mL One or more dose reduction techniques were used (e.g., Automated exposure control, adjustment of the mA and/or kV according to patient size, use of iterative reconstruction technique. RADIATION DOSE SUMMARY: CTDlvol: 30 mGy DLP: 1143 mGycm COMPARISON: August 2024. FINDINGS: Lung bases: Mild emphysematous changes. ABDOMEN Liver: Moderate fatty infiltration of the liver. In the periphery of the liver in the central aspect of the left lobe of liver is a more well-defined area of hyper enhancement. This measures 2 cm. Uncertain this represents focal fatty sparing/perfusion anomaly or a true lesion. This is better seen than on the prior exams. Overall the liver is slightly lobulated. No other masses or lesions. Removed at Biliary system: Negative. Negative for intrahepatic or extrahepatic ductal dilatation. Gallbladder: Gallbladder not visualized. Removed Spleen: Normal-size. Otherwise negative. Pancreas: Negative. Adrenals: Negative. Kidneys: Negative. Negative for kidney stones, cysts or masses. Bowel: Gastrointestinal well opacify with contrast. Negative for small or large-bowel obstruction. Appendix: Not visualized. Appendix not visualized but no inflammatory process in the right lower quadrant. Vasculature: Mild atherosclerotic vascular calcifications of the abdominal aorta and its branches. Peritoneum / Retroperitoneum: Negative. PELVIS Lymph nodes: Negative for inguinal or iliac adenopathy. Bladder: Urinary bladder negative. Reproductive Organs: Hysterectomy. Bones and Soft Tissues: Moderate degenerative changes of the mid and lower lumbar spine. Negative for fracture CT/Abdomen/Pelvis WITH Contrast IMPRESSION: Fatty liver. Worsening appearance of lesion in the left lobe of the liver. Suspect at least a component of perfusion anomaly but can not exclude developing hepatic lesion in this patient with cirrhosis Therefore recommend MR of the abdomen with without Eovist to better visualized. Reading Location: [id number]
== END | disposition home or self-care (01) ==
LOC: CT 14:46
PROVIDERS: PCP Internal Medicine; Referring Provider Internal Medicine Gastroenterology; Visit Provider Internal Medicine Gastroenterology
DX: K74.60 Unspecified cirrhosis of liver (principal)
CPT/HCPCS: 74177; Q9967